=== PATIENT | male | born 1940 | race Caucasian/White ===

== ENCOUNTER 2022-07-21 11:09 | Outpatient (OUT) | payer MEDICARE, SELFPAY ==
[2022-07-21 13:08] LABS: Prostate Specific Antigen Dx 1.07 ng/mL (<=4.00)
== END 2022-07-21 11:10 ==
LOC: LAB 11:14
PROVIDERS: PCP Internal Medicine; Visit Provider Urology
DX: R97.21 Rising PSA following treatment for malignant neoplasm of prostate (principal); Z85.46 Personal history of malignant neoplasm of prostate
CPT/HCPCS: 36415; 84153

== ENCOUNTER 2022-07-21 11:16 | Outpatient (OUT) | payer MEDICARE, SELFPAY ==
[2022-07-21 11:53] LABS: Basophils Absolute Auto 0.1 10^3/uL (0.0-0.1); Basophils Percent Auto 0.5 % (0.2-2.0); Eosinophils Absolute Auto 0.4 10^3/uL (0.0-0.7); Eosinophils Percent Auto 4.2 % (0.9-7.0); Hematocrit 41.9 % (42.0-54.0); Immature Granulocytes Abs Auto 0.04 10^3/uL (0.00-0.03); Immature Granulocytes Pct Auto 0.4 % (0.0-0.5); Lymphocytes Absolute Auto 1.2 10^3/uL (1.2-3.8); Lymphocytes Percent Auto 12.4 % (20.5-60.0); Mean Corpuscular HGB Conc 33.4 g/dL (29.9-35.2); Mean Corpuscular Hemoglobin 29.4 pg (25.9-34.0); Mean Platelet Volume 11.4 fL (9.5-13.5); Monocytes Percent Auto 10.3 % (1.7-12.0); Neutrophils Absolute Auto 6.7 10^3/uL (1.4-6.5); Neutrophils Percent Auto 72.2 % (43.0-75.0); Platelet Count 202 10^3/uL (150-450); Red Blood Count 4.76 10^6/uL (4.70-6.10); Red Cell Distribution Width 13.4 % (11.0-15.0); White Blood Count 9.3 10^3/uL (4.0-11.0)
[2022-07-21 12:30] LABS: Anion Gap 12.6; BUN Creatinine Ratio 26.8; Calcium 9.2 mg/dL (8.5-10.1); Carbon Dioxide 25.7 mmol/L (21.0-32.0); Chloride 105 mmol/L (98-107); Estimated GFR (African America >60 (>=60); Estimated GFR (Non-African Ame >60 (>=60); Glucose 114 mg/dL (74-106); Potassium 4.3 mmol/L (3.5-5.1); Sodium 139 mmol/L (136-145)
== END 2022-07-21 11:17 ==
LOC: LAB 11:17
PROVIDERS: PCP Internal Medicine; Visit Provider Internal Medicine
DX: R97.21 Rising PSA following treatment for malignant neoplasm of prostate (principal); Z85.46 Personal history of malignant neoplasm of prostate; I10 Essential (primary) hypertension; Z79.899 Other long term (current) drug therapy
CPT/HCPCS: 36415; 80048; 84153; 85025

== ENCOUNTER 2022-09-27 14:00 | Outpatient (OUT) | payer MEDICARE, SELFPAY ==
[2022-09-27 14:34] LABS: Anion Gap 13.2; BUN Creatinine Ratio 21.8; Calcium 8.9 mg/dL (8.5-10.1); Carbon Dioxide 24.5 mmol/L (21.0-32.0); Chloride 101 mmol/L (98-107); Estimated GFR (African America >60 (>=60); Estimated GFR (Non-African Ame >60 (>=60); Glucose 138 mg/dL (74-106); Potassium 3.7 mmol/L (3.5-5.1); Sodium 135 mmol/L (136-145)
== END 2022-09-27 14:01 | disposition home or self-care (01) ==
LOC: LAB 14:01
PROVIDERS: PCP Internal Medicine; Visit Provider Urology
DX: M19.90 Unspecified osteoarthritis, unspecified site (principal)
CPT/HCPCS: 36415; 80048

== ENCOUNTER 2022-10-19 14:17 | Outpatient (OUT) | payer MEDICARE, SELFPAY ==
[2022-10-19 15:50] LABS: Alanine Aminotransferase 17 U/L (16-63); Albumin Globulin Ratio 0.8; Albumin Level 3.6 g/dL (3.4-5.0); Alkaline Phosphatase 98 U/L (46-116); Aspartate Amino Transferase 14 U/L (15-37); Bilirubin Direct 0.1 mg/dL (0.0-0.2); Bilirubin Total 0.6 mg/dL (0.2-1.0); Globulin 4.3 g/dL; Total Protein 7.9 g/dL (6.4-8.2)
== END 2022-10-19 14:18 | disposition home or self-care (01) ==
LOC: LAB 14:19
PROVIDERS: PCP Internal Medicine; Visit Provider Urology
DX: N40.1 Benign prostatic hyperplasia with lower urinary tract symptoms (principal); R39.14 Feeling of incomplete bladder emptying; R39.15 Urgency of urination
CPT/HCPCS: 36415; 80076

== ENCOUNTER 2023-01-12 14:10 | Outpatient (OUT) | payer MEDICARE, SELFPAY ==
[2023-01-12 15:20] LABS: Prostate Specific Antigen Dx <0.13 ng/mL (<=4.00)
== END 2023-01-12 14:11 | disposition home or self-care (01) ==
PROVIDERS: PCP Internal Medicine; Visit Provider Urology
DX: R97.21 Rising PSA following treatment for malignant neoplasm of prostate (principal)
CPT/HCPCS: 36415; 84153

== ENCOUNTER 2023-05-25 14:54 | Outpatient (OUT) | payer MEDICARE, SELFPAY ==
--- NOTE | 2023-05-25 | XR_ITS ---
The [address] [address] Patient Name: PARK GUIDRY MRN: [id number] date: 1940 Sex: M Assigned Patient Location: Current Patient Location: Accession/Order Number: [id number] Exam Date: 05/25/2023 14:55 Report Date: 05/26/2023 08:27 At the request of: JAS LEACH Procedure: XR ankle RT min 3V PROCEDURE: XR ankle RT min 3V HISTORY: RIGHT ANKLE PAIN COMPARISON: None. FINDINGS: BONES:Several nondisplaced fracture lines extending through the calcaneus. Complete loss of the ankle joint space with [id number] articulation, subchondral sclerosis, and bony erosion/remodeling of the talar dome. SOFT TISSUES:Soft tissue swelling surrounding the ankle. EFFUSION:None visible. OTHER: Negative. XR/XR ankle RT min 3V IMPRESSION: 1. Nondisplaced comminuted fracture of the right calcaneus. 2. 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 Electronically authenticated by: DANDY SANCHEZ Date: 05/26/2023 08:27
== END 2023-05-25 14:55 | disposition home or self-care (01) ==
LOC: EC 14:54
PROVIDERS: PCP Internal Medicine; Visit Provider Podiatrist Foot & Ankle Surgery
DX: M25.571 Pain in right ankle and joints of right foot (principal); S92.001A Unspecified fracture of right calcaneus, initial encounter for closed fracture
CPT/HCPCS: 73610

== ENCOUNTER 2023-08-12 09:07 | Outpatient (OUT) | payer MEDICARE, SELFPAY ==
--- OUTSIDE RECORDS SUMMARY | 2023-08-12 09:13 | XMS_ITS | CCD ---
Author Organization [facility] CliniSyct Care Team Providers Care Dental Chair Assembler Name Role Phone ENGELER, G KEYSHAWN Unavailable Unavailable LUIS GARCIA Unavailable Unavailable ENGELER, G KEYSHAWN Unavailable Unavailable ENGELER, G KEYSHAWN Unavailable Unavailable ENGELER, G KEYSHAWN Unavailable Unavailable ENGELER, G KEYSHAWN Unavailable Unavailable ENGELER, G KEYSHAWN Unavailable Unavailable ENGELER, G KEYSHAWN Unavailable Unavailable ENGELER, G KEYSHAWN Unavailable Unavailable ENGELER, G KEYSHAWN Unavailable Unavailable BOB LIU Unavailable Unavailable ENGELER, G KEYSHAWN Unavailable Unavailable ENGELER, G KEYSHAWN Unavailable Unavailable ENGELER, G KEYSHAWN Unavailable Unavailable ENGELER, G KEYSHAWN Unavailable Unavailable ENGELER, G KEYSHAWN Unavailable Unavailable ENGELER, G KEYSHAWN Unavailable Unavailable ENGELER, G KEYSHAWN Unavailable Unavailable ENGELER, G KEYSHAWN Unavailable Unavailable ENGELER, G KEYSHAWN Unavailable Unavailable ENGELER, G KEYSHAWN Unavailable Unavailable ENGELER, G KEYSHAWN Unavailable Unavailable ENGELER, G KEYSHAWN Unavailable Unavailable ENGELER, G KEYSHAWN Unavailable Unavailable CHINO MCGINNIS (REHAB AIDE) Unavailable Unavailabl e ENGELER, G KEYSHAWN Unavailable Unavailable ENGELER, G KEYSHAWN Unavailable Unavailable ENGELER, G KEYSHAWN Unavailable Unavailable CHINO MCGINNIS (REHAB AIDE) Unavailable Unavailabl e ENGELER, G KEYSHAWN Unavailable Unavailable SHAUN, DR BETTS Primary Care Unavailable BALL, DR BETTS Consulting Unavailable BALL, DR BETTS Attending Unavailable BALL, DR BETTS Admitting Unavailable Ziebfrancheska, DR Chung Consulting Unavailable JOSE, DR SMITH Admitting Unavailable JOSE, DR SMITH Consulting Unavailable JOSE, DR SMITH Attending Unavailable BALL, DR BETTS Primary Care Unavailable BALL, DR BETTS Consulting Unavailable BALL, DR BETST Attending Unavailable BALL, DR BETTS Admitting Unavailable BALL, DR BETTS Primary Care Unavailable Zieber, DR Chung Consulting Unavailable JOSE, DR SMITH Admitting Unavailable JOSE, DR SMITH Consulting Unavailable GARCIA, DR SMITH Attending Unavailable BALL, DR BETTS Primary Care Unavailable BALL, DR BETTS Primary Care Unavailable BALL, DR BETTS Consulting Unavailable BALL, DR BETTS Attending Unavailable BALL, DR BETTS Admitting Unavailable Ball, Alpesh Unavailable Shaun, DO Betts Primary Care Provider MD Marc Mckinney Admit Provider MD Marc Mckinney Attending Provider [phone] LAQUITA Joshi Other Provider Unavailable LAQUITA Samuels Other Provider Unavailable LAQUITA Gonzalez Other Provider Unavailable LAQUITA Dawkins Other Provider Unavailable LAQUITA Rendon Other Provider Unavailable LAQUITA Leyva Other Provider Unavailable MD Yadiel Yanez Other Provider SONAM Gan Other Provider DO Jacquie Cox Other Provider [phone] MD Timi Mercado Other Provider DO Sherwin Cavanaugh Other Provider MD Daniel Carnes Other Provider [phone] MD Flower Hendrickson Other Provider SONAM Bui Other Provider [phone] MD Rosamaria Gregory Other Provider MD Ga Barnett Other Provider MD Mario Merino Other Provider MD Kaylie Brower Other Provider DO Dm Seo Other Provider MD Lenin Napier Other Provider MD Julian Maurice Other Provider KARYNA Liao Other Provider [phone] MD Yordan Bowen Other Provider MD Juan Espinoza Other Provider MD Joss Mcihelle Other Provider MD Nathaniel Luna Other Provider DO Acacia Palacio Other Provider DO Hayder Suazo Other Provider DO Shorty Espino Other Provider [phone] SONAM Yin Other Provider DO Fausto Wyatt Other Provider MD Yuko Tavera Other Provider SONAM Padilla Other Provider SONAM Brambila Other Provider [phone] MD Katina Grimm Other Provider MD Anatoly Ortiz Other Provider SONAM Hope Other Provider [phone] DO Vlad Smalls Other Provider LAQUITA Flood Other Provider Unavailable Jackson Ballard Attending Unavailable Alpesh Dunn Primary Care Unavailable Marc Mckinney Admitting Unavaila Naheed Milton Consulting Unavailable Mariza Samuels Consulting Unavailable Quyen Gonzalez Consulting Unavailable Denscayla, Elizabeth Consulting Unavailable Justice Bailey Consulting Unavailable Swathi Leyva Consulting Unavailable MassYadiel bañuelos Consulting Unavailable Dials, Yi M Consulting Unavailable Brooke, Ronobir Consulting Unavailable Jess, Timi Consulting Unavailable Sherwin Cavanaugh Consulting Unavailabl Daniel River Consulting Unavailable Flower Hendrickson Consulting Unavailable Crista Bui Consulting Unavailabl e Wastyler, Rosamaria Consulting Unavailable Ga Barnett Consulting Unavailable Mario Merino Consulting Unavailable Kaylie Brower Consulting Unavailable Dm Seo Consulting Unavailable Lenin Napier Consulting Unavailable Julian Maurice Consulting Unavailable Mia Liao Consulting Unavailable Yordan Bowen Consulting Unavailab Juan [place] Consulting Unavailable Joss Michelle Consulting Unavailable Jeremy, Nathaniel Consulting Unavailable Acacia Palacio Consulting Unavailable Hayder Suazo Consulting Unavailable MiniShorty barry Consulting Unavailable ObMolly napier Consulting Unavailable Fausto Wyatt Consulting Unavailable DaromarYuko Consulting Unavailable Patti Padilla Consulting Unavailable Esther Brambila Consulting Unavailable Katina Grimm Unavailable Anatoly Ortiz Consulting Unavailable Taryn Hope Consulting Unavailable Vlad Smalls Consulting Unavailable Tonya Flood Consulting Unavailable SANCHEZ, FLORIAN A Referring Unavailable SANCHEZ, FLORIAN A Referring Unavailable SANCHEZ, FLORIAN A Referring Unavailable FADY, MACK BREE Consulting Unavailable PAMELA TOURE Admitting Unavailable PAMELA TOURE Attending Unavailable PAMELA TOURE Consulting Unavailable DENZEL GOMEZ Consulting Unavailable Luis GARCIA Attending Unavailable STELLA, MIA LINN Attending Unavaila lang DOUGLAS, MIA LINN Referring Unavaila Juan Carlos Franco Attending Unavailable Yael Agrawal Attending Unavailable Luis GARCIA Attending Unavailable Luis GARCIA Attending Unavailable Luis GARCIA Attending Unavailable Medications Current Medications Medication Drug Class(es) Dates Sig (Normalized) Sig (Original) acetaminophen 500 mg oral tablet (4 sources) Start: 02-02-2023 take 500 mg by mouth every four hours Acetaminophen Active 500 MG PO Q4H 0 February 02, 2023 12:00am take 1 capsule by mo ut every four hours as needed for pain Acetaminophen 500 MG 1 capsule as needed Orally every 4 hours for pain Active ALPRAZolam 0.25 mg oral tablet (11 sources) Benzodiazepine Start: 02-18-2023 take 0.5 tablet by mouth once daily at mealtime, then take 1 tablet by mouth once daily at bedtime ALPRAZolam 0.25 MG TAKE 1/2 TABLET BY MOUTH EVERY EVENING WITH MEAL AND TAKE ONE TABLET BY MOUTH EVERY NIGHT AT BEDTIME for 90 Feb, Active Start: 07-27-2022 take 0.5 tablet by m outh once daily at mealtime, then take 1 tablet by mouth once daily at bedtime ALPRAZolam 0.25 MG TAKE 1/2 TABLET BY MOUTH EVERY EVENING WITH MEAL AND TAKE ONE TABLET BY MOUTH EVERY NIGHT AT BEDTIME Jul, Active Start: 10-08-2016 End: 01-19-2023 take 0.25 mg by mouth once daily Alprazolam Discontinu ed 0.25 MG PO Daily October 07, 2016 11:00pm January 19, 2023 5:00pm amLODIPine 5 mg oral tablet (12 sources) Dihydropyridine Calcium Channel Aryan Start: 01-19-2023 End: 02-02-2023 take 5 mg by mouth once daily Amlodipine Active 5 MG PO Daily February 02, 2023 8:10am aspirin 81 mg delayed release oral tablet (5 sources) Platelet Aggregation Inhibitor, Nonsteroidal Anti-inflammatory Drug Start: 10-08-2016 End: 02-02-2023 Aspirin (Madi Low Dose Aspirin) 81 mg Tablet,Delayed Release (Dr/Ec) Active 81 MG PO Twice daily February 02, 2023 8:10am take 1 tablet by tyron th every twenty-four hours Aspirin 81 MG 1 tablet Orally Once a day Active diclofenac sodium 0.01 mg/mg topical gel (4 sources) Nonsteroidal Anti-inflammatory Drug Start: 02-02-2023 apply 2 g topically three times daily Diclofenac Sodium Active 2 GM TOPICAL Three times daily 03 08February 02, 2023 12:00am Diclofenac Sodiu m 1 % 2 g topical Externally TID Active enzalutamide 40 mg oral capsule (9 sources) Androgen Receptor Inhibitor Start: 01-19-2023 take 1 capsule by mouth once daily Enzalutamide (Xtandi) 40 mg Capsule Active 160 MG PO Daily with supper January 19, 2023 12:00am take 1 tablet by mouth every six hours Xtandi 40 MG 1 tablet Orally 4 times a day Active ergocalciferol 1.25 mg oral capsule (5 sources) Provitamin D2 Compound Start: 01-19-2023 End: 02-02-2023 take 1250 ug by mouth every week Ergocalciferol (Vitamin D2) Active 1250 MCG PO every week 07 06February 02, 2023 8:10am ferrous sulfate 324 mg delayed release oral tablet (4 sources) Start: 02-02-2023 take 324 mg by mouth once daily Ferrous Sulfate Active 324 MG PO Daily February 02, 2023 12:00am take 1 tablet by mouth three vivienne es weekly Ferrous Sulfate 325 (65 Fe) MG 1 tablet Orally Three times a Week Active lidocaine 0.04 mg/mg medicated patch (5 sources) Antiarrhythmic, Amide Local Anesthetic Start: 01-19-2023 End: 02-02-2023 apply 1 dose topically once daily Lidocaine Active 1 PATCH TOPICAL Daily February 02, 2023 8:10am apply 1 dose transde rmal route once daily as needed Lidocaine 4 % 1 patch as needed Externally Once a day Active melatonin 5 mg oral tablet (4 sources) Start: 02-02-2023 take 5 mg by mouth once daily at bedtime Melatonin Active 5 MG PO Daily at bedtime February 02, 2023 12:00am metFORMIN hydrochloride 850 mg oral tablet (2 sources) Biguanide Start: 02-02-2023 take 850 mg by mouth once daily Metformin Active 850 MG PO Daily with supper February 02, 2023 12:00am ondansetron 4 mg disintegrating oral tablet (2 sources) Serotonin-3 Receptor Antagonist Start: 02-02-2023 take 4 mg by mouth every eight hours Ondansetron Active 4 MG PO Every 8 hours 90 February 02, 2023 12:00am take 1 tablet by tyron every twenty-four hours Ondansetron 4 MG 1 tablet on the tongue and allow to dissolve Orally Once a day Active oxyCODONE hydrochloride 5 mg oral tablet (2 sources) Opioid Agonist Start: 02-02-2023 take 5 mg by mouth every eight hours Oxycodone Active 5 MG PO Every 8 hours 15 February 02, 2023 take 1 tablet by mouth every eig ht hours oxyCODONE HCl 5 MG 1 tablet as needed Orally every 8 hours Active tamsulosin hydrochloride 0.4 mg oral capsule (12 sources) alpha-Adrenergic Aryan Start: 01-19-2023 End: 02-02-2023 take 1 capsule by mouth twice daily Tamsulosin (Flomax) 0.4 mg Capsule Active 0.4 MG PO Twice daily 60 February 02, 2023 8:10am take 1 capsule by mo [facility] every twenty-four hours Tamsulosin HCl 0.4 MG 1 capsule Orally Once a day Active 24 hr tolterodine tartrate 4 mg extended release oral capsule (10 sources) Cholinergic Muscarinic Antagonist Start: 01-19-2023 End: 02-02-2023 take 4 mg by mouth once daily Tolterodine Active 4 MG PO Daily February 02, 2023 8:10am Completed/Discontinued Medications Medication Drug Class(es) Dates Sig (Normalized) Sig (Original) doxazosin 2 mg oral tablet (1 source) alpha-Adrenergic Aryan Start: 10-08-2016 End: 01-19-2023 take 2 mg by mouth once daily Doxazosin Discontinued 2 MG PO daily October 07, 2016 11:00pm January 19, 2023 5:01pm 0.3 ml enoxaparin sodium 100 mg/ml prefilled syringe (2 sources) Low Molecular Weight Heparin Start: 01-19-2023 End: 02-02-2023 inject 30 mg by subcutaneous injection every twelve hours Enoxaparin Discontinued 30 MG SUBCUT Q12H January 19, 2023 12:00am February 02, 2023 8:11am meloxicam 15 mg oral tablet (11 sources) Nonsteroidal Anti-inflammatory Drug Start: 10-08-2016 End: 01-19-2023 take 15 mg by mouth once daily Meloxicam Discontinued 15 MG PO daily October 07, 2016 11:00pm January 19, 2023 5:00pm Multivitamin preparation (1 source) Start: 10-08-2016 End: 01-19-2023 take 1 tablet by mouth once daily Multivitamin Discontinued 1 TAB PO daily October 07, 2016 11:00pm January 19, 2023 5:01pm Problems Active Problems Problem Classification Problem Date Documented Da te Episodic/Chronic Administrative/social admission (3 sources) Other reduced mobility; Translations: [Impaired mobility and activities of daily living] Onset: 01-19-2023 01-20-2023 Episodic Anxiety disorders (14 sources) Generalized anxiety disorder; Translations: [Generalized anxiety disorder] Chronic Cancer of prostate (16 sources) Malignant neoplasm of prostate; Translations: [Carcinoma of prostate] Onset: 11-11-2016 Chronic Cancer of prostate (1 source) Personal history of malignant neoplasm of prostate; Translations: [PERSONAL HX MALIG NEOPLASM PROSTATE] Onset: 01-24-2022 Episodic Deficiency and other anemia (1 source) Anemia; Translations: [Anemia, unspecified] 01-28-2023 Episodic Deficiency and other anemia (2 sources) Anemia, unspecified; Translations: [Anemia, unspecified] Onset: 01-19-2023 02-02-2023 Episodic Diabetes mellitus without complication (3 sources) Diabetes mellitus; Translations: [Type 2 diabetes mellitus without complications] Onset: 01-19-2023 01-28-2023 Chronic Esophageal disorders (8 sources) Gastro-esophageal reflux disease with esophagitis; Translations: [Gastroesophageal reflux disease with esophagitis without hemorrhage] Chronic Essential hypertension (20 sources) Essential hypertension; Translations: [Essential (primary) hypertension] Onset: 01-19-2023 Chronic Genitourinary symptoms and ill-defined conditions (14 sources) Urgency of urination; Translations: [Delay when starting to pass urine] Onset: 01-24-2022 Episodic Hyperplasia of prostate (14 sources) Benign prostatic hyperplasia with lower urinary tract symptoms; Translations: [Benign prostatic hyperplasia] Onset: 01-24-2022 Chronic Hypertension with complications and secondary hypertension (1 source) Hypertensive heart disease with heart failure; Translations: [HTN HEART DISEASE W/HEART FAIL] Onset: 07-23-2021 Chronic Malaise and fatigue (1 source) Other fatigue Episodic Open wounds of head; neck; and trunk (1 source) Laceration without foreign body of scalp, subsequent encounter Episodic Osteoarthritis (10 sources) Arthritis; Translations: [Unspecified osteoarthritis, unspecified site] Chronic Other acquired deformities (10 sources) Acquired unequal leg length; Translations: [Unequal limb length (acquired), unspecified site] Episodic Other aftercare (2 sources) Other senior living (current) drug therapy; Translations: [OTH ARM REST BUILDER CURRENT DRUG THERAPY] Onset: 07-23-2021 Episodic Other and unspecified benign neoplasm (10 sources) Tubular adenoma of colon; Translations: [Benign neoplasm of colon, unspecified] Episodic Other bone disease and musculoskeletal deformities (10 sources) Idiopathic aseptic necrosis of right ankle; 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 Other circulatory disease (1 source) Other specified symptoms and signs involving the circulatory and respiratory systems Episodic Other connective tissue disease (10 sources) Pain in limb; Translations: [Pain in right lower leg] Episodic Other fractures (1 source) Multiple fractures of ribs, right side, subsequent encounter for fracture with routine healing Episodic Other gastrointestinal disorders (10 sources) Radiation enterocolitis; 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] Episodic Other lower respiratory disease (1 source) Other forms of dyspnea Episodic Other nervous system disorders (1 source) Dysarthria and anarthria Episodic Other nervous system disorders (1 source) Hip pain; Translations: [Other acute postprocedural pain] 01-20-2023 Episodic Other nervous system disorders (2 sources) Other acute postprocedural pain; Translations: [Pain in joint, pelvic region and thigh] Onset: 01-19-2023 02-02-2023 Episodic Other non-traumatic joint disorders (1 source) Pain in right hip; Translations: [Pain in right hip] Onset: 01-19-2023 Episodic Other nutritional; endocrine; and metabolic disorders (15 sources) Body mass index 30+ - obesity; Translations: [Body mass index (BMI) 32.0-32.9, adult] Chronic Other nutritional; endocrine; and metabolic disorders (10 sources) Obesity; Translations: [Other obesity due to excess calories] Chronic Other nutritional; endocrine; and metabolic disorders (2 sources) Other obesity due to excess calories Chronic Other nutritional; endocrine; and metabolic disorders (2 sources) Body mass index (BMI) 32.0-32.9, adult Chronic Other nutritional; endocrine; and metabolic disorders (1 source) Body mass index (BMI) 31.0-31.9, adult Chronic Other screening for suspected conditions (not mental disorders or infectious disease) (1 source) Imaging result abnormal; Translations: [Abnormal findings on diagnostic imaging of other specified body structures] 10-08-2016 Chronic Other screening for suspected conditions (not mental disorders or infectious disease) (4 sources) Rising PSA following treatment for malignant neoplasm of prostate; Translations: [RISING PSA FLW TX MALG MARY PROSTATE] Onset: 01-20-2022 Episodic Other skin disorders (1 source) Localized swelling, mass and lump, neck Episodic Residual codes; unclassified (1 source) Other specified health status; Translations: [Other specified health status] Onset: 01-19-2023 Episodic Skin and subcutaneous tissue infections (10 sources) Cellulitis of right lower limb; Translations: [Cellulitis of right lower limb] Episodic Spondylosis; intervertebral disc disorders; other back problems (14 sources) Lumbar spondylosis; Translations: [Spondylosis without myelopathy or radiculopathy, lumbar region] Chronic Superficial injury; contusion (4 sources) Contusion of nose, subsequent encounter; Translations: [Contusion of rib] Onset: 01-19-2023 Episodic Unclassified (1 source) Displaced transverse fracture of shaft of right femur, initial encounter for closed fracture; Translations: [Displaced transverse fracture of shaft of right femur, initial encounter for closed fracture] Onset: 01-19-2023 Past or Other Problems Problem Classification Problem Date Documented Da te Episodic/Chronic Esophageal disorders (4 sources) Esophageal disorders; Translations: [Gastroesophageal reflux disease with esophagitis without hemorrhage] Fracture of lower limb (5 sources) Fracture of femur; Translations: [Unspecified fracture of right femur, initial encounter for closed fracture] Onset: 01-19-2023 01-20-2023 Episodic Other connective tissue disease (4 sources) Pain in right lower leg; Translations: [PAIN IN RIGHT LOWER LEG] Onset: 08-11-2021 Episodic Other connective tissue disease (1 source) Other specified soft tissue disorders; Translations: [OTHER SPEC SOFT TISSUE DISORDERS] Onset: 08-24-2021 Episodic Other lower respiratory disease (4 sources) Chronic cough; Translations: [CHRONIC COUGH] Onset: 05-20-2021 Episodic Results Test Name Value Interpretation Reference Range Facility PT - Otheron 08-03-2023 PT - Other Spoke with pt by kojo maynard. Pt reports seeing his surgeon yesterday and having a 5 screw removed from his right hip while in the office. Pt states this had loosened at some point and this was the cause of his increased pain. Pt requests to return to PT on 08/09/23 and would like to keep activity light. Normal [facility] PT - Otheron 07-29-2023 PT - Other Pt called to inform PT that he is scheduled to see Dr Douglas next Tuesday for a consult for his continued right hip pain. Normal [facility] Nonvisit Note - PTon 024 Nonvisit Note - PT Pt called and left voicemail to cancel PT for today and his upcoming visits. PT phoned pt back and discussed pt's pain. Pt reports high pain levels 9.5/10 and states he is unable to do much due to his hip pain. Pt wants to get into see Dr. Cosme for an x-ray since his surgical ortho appointment isn't for a few more weeks. Pt states he is using Tylenol and heat. States he is not getting around very well. Visit cancelled this date and for the next 2 weeks. Pt to contact PT after appointment with ortho. Pt encouraged to trial ice to hip if pain levels are above 8/10 and monitor if this helps his pain reports. Normal [facility] PT - Assessmentson 4 PT - Assessments [id number]#1.[facility] PT - Assessmentson 4 PT - Assessments [id number]#1.[facility] XR FEMUR RIGHT (MIN 2 VIEWS) on 06-08-2023 XR FEMUR RIGHT (MIN 2 VIEWS) Interpreted by: Mia Douglas, Preliminary result [facility] PT - [place] 06-03-2023 PT - Orders [id number]#1.[facility] Consent for Treatmenton 05-09 Consent for Treatment [id number]#1.[facility] PT - Assessmentson 4 PT - Assessments [id number]#1.[facility] PT - Consentson 05-31-2023 PT - Consents [id number]#1.[facility] PT - Home Exercise Programon 05-31-2023 PT - Home Exercise Program [id number]#1.[facility] PT - [place] 05-24-2023 PT - Orders [id number]#1.[facility] PT - Otheron 05-24-2023 PT - Other [id number]#1.[facility] PT - [place] 05-23-2023 PT - Orders [id number]#1.[facility] Ambulatory Visit Summaryon 0 03-21-2023 Ambulatory Visit Summary [place] :1940 Visit Date:03/21/2023 Ambulatory Visit Instructions Your Diagnosis Feeling of incomplete bladder emptying Your Care Team Attending Physician - JOSE LYNN, Luis No Primary Care Physician - ALPESH DUNN DO This Is Your Medications List alprazolam (alprazolam 0.25 mg Tab) amlodipine enzalutamide (enzalutamide 40 mg oral capsule) meloxicam (Mobic) tamsulosin (Flomax 0.4 mg Cap) tolterodine (tolterodine 2 mg Cap-ER) tolterodine (tolterodine 4 mg Cap-ER) Procedures Performed Radiofrequency ablation of medial branch of lumbar nerve using fluoroscopic guidance (06/22/2022), Injection of facet joint using fluoroscopic guidance (05/31/2022), Injection of facet joint using fluoroscopic guidance (05/03/2022), left total hip arthroplasty (01/30/2018), Cystoscopy (12/13/2017), lumbar medial branch block (11/21/2017), Facet Medial Branch Block (05/30/2017), Brachytherapy (12/23/2016), Transrectal biopsy of prostate using ultrasound (US) guidance (08/24/2016), left total knee arthroplasty (03/05/2013), Cleft palate repair, Knee arthroplasty, left total knee, OPEN REDUCCTION RIGHT FEMUR, rt total knee. What to do next Scheduled Follow-Up Appointments Tuesday 9:30 AM EDT With: Luis GARCIA MD Where: [facility] Ambulatory Visit Summaryon 0 02-21-2023 Ambulatory Visit Summary [place] :1940 Visit Date:02/21/2023 Ambulatory Visit Instructions Your Diagnosis Rising PSA following treatment for malignant neoplasm of prostate BPH with urinary obstruction Urge incontinence Tests Performed Urnls Dip Stick Auto w/o Microscopy POC [id number] Your Care Team Attending Physician - Luis GARCIA MD Primary Care Physician - ALPESH DUNN DO This Is Your Medications List tolterodine (tolterodine 2 mg Cap-ER) tolterodine (tolterodine 4 mg Cap-ER) Contact prescribing physician if questions or concerns alprazolam (alprazolam 0.25 mg Tab) amlodipine enzalutamide (enzalutamide 40 mg oral capsule) meloxicam (Mobic) tamsulosin (Flomax 0.4 mg Cap) Procedures Performed Radiofrequency ablation of medial branch of lumbar nerve using fluoroscopic guidance (06/22/2022), Injection of facet joint using fluoroscopic guidance (05/31/2022), Injection of facet joint using fluoroscopic guidance (05/03/2022), left total hip arthroplasty (01/30/2018), Cystoscopy (12/13/2017), lumbar medial branch block (11/21/2017), Facet Medial Branch Block (05/30/2017), Brachytherapy (12/23/2016), Transrectal biopsy of prostate using ultrasound (US) guidance (08/24/2016), left total knee arthroplasty (03/05/2013), Cleft palate repair, Knee arthroplasty, left total knee, OPEN REDUCCTION RIGHT FEMUR, rt total knee. Discharge Vitals Heart Rate (Peripheral) 68 Respiratory Rate 16 Blood Pressure 132/81 Height 170 cm Height 67 in Weight 90 kg Weight 198 lb BMI 31.14 What to do next Scheduled Follow-Up Appointments Tuesday 9:30 AM EDT With: JOSE LYNN, Luis No Where: [facility] Patient Educationon 02-21-19 Patient Education Oncology Prostate Cancer Screening Prostate cancer screening is testing that is done to check for the presence of prostate cancer in men. The prostate gland is a walnut-sized gland that is located below the bladder and in front of the rectum in males. The function of the prostate is to add fluid to semen during ejaculation. Prostate cancer is one of the most common types of cancer in men. Who should have prostate cancer screening? Screening recommendations vary based on age and other risk factors, as well as between the professional organizations who make the recommendations. In general, screening is recommended if: ? You are age 50 to 70 and have an average risk for prostate cancer. You should talk with your health care provider about your need for screening and how often screening should be done. Because most prostate cancers are slow growing and will not cause , screening in this age group is generally reserved for men who have a 10- to 15-year life expectancy. ? You are younger than age 50, and you have these risk factors: ? Having a father, brother, or uncle who has been diagnosed with prostate cancer. The risk is higher if your family member's cancer occurred at an early age or if you have multiple family members with prostate cancer at an early age. ? Being a male who is Black or is of [place] or sub-Saharan descent. In general, screening is not recommended if: ? You are younger than age 40. ? You are between the ages of 40 and 49 and you have no risk factors. ? You are 70 years of age or older. At this age, the risks that screening can cause are greater than the benefits that it may provide. If you are at high risk for prostate cancer, your health care provider may recommend that you have screenings more often or that you start screening at a younger age. How is screening for prostate cancer done? The recommended prostate cancer screening test is a blood test called the prostate-specific antigen (PSA) test. PSA is a protein that is made in the prostate. As you age, your prostate naturally produces more PSA. Abnormally high PSA levels may be caused by: ? Prostate cancer. ? An enlarged prostate that is not caused by cancer (benign prostatic hyperplasia, or BPH). This condition is very common in older men. ? A prostate gland infection (prostatitis) or urinary tract infection. ? Certain medicines such as male hormones (like testosterone) or other medicines that raise testosterone levels. A rectal exam may be done as part of prostate cancer screening to help provide information about the size of your prostate gland. When a rectal exam is performed, it should be done after the PSA level is drawn to avoid any effect on the results. Depending on the PSA results, you may need more tests, such as: ? A physical exam to check the size of your prostate gland, if not done as part of screening. ? Blood and imaging tests. ? A procedure to remove tissue samples from your prostate gland for testing (biopsy). This is the only way to know for certain if you have prostate cancer. What are the benefits of prostate cancer screening? ? Screening can help to identify cancer at an early stage, before symptoms start and when the cancer can be treated more easily. ? There is a small chance that screening may lower your risk of dying from prostate cancer. The chance is small because prostate cancer is a slow-growing cancer, and most men with prostate cancer from a different cause. What are the risks of prostate cancer screening? The main risk of prostate cancer screening is diagnosing and treating prostate cancer that would never have caused any symptoms or problems. This is called overdiagnosisand overtreatment. PSA screening cannot tell you if your PSA is high due to cancer or a different cause. A prostate biopsy is the only procedure to diagnose prostate cancer. Even the results of a biopsy may not tell you if your cancer needs to be treated. Slow-growing prostate cancer may not need any treatment other than monitoring, so diagnosing and treating it may cause unnecessary stress or other side effects. Questions to ask your health care provider ? When should I start prostate cancer screening? ? What is my risk for prostate cancer? ? How often do I need screening? ? What type of screening tests do I need? ? How do I get my test results? ? What do my results mean? ? Do I need treatment? Where to find more information ? The [place] Cancer Society: www.cancer.org ? [employer] U[employer] Association: www.auanet.org Contact a health care provider if: ? You have difficulty urinating. ? You have pain when you urinate or ejaculate. ? You have blood in your urine or semen. ? You have pain in your back or in the area of your prostate. Summary ? Prostate cancer is a common type of cancer in men. The prostate gland is located below the bladder and in front of the rectum. This gland adds flu (more content not included)... Normal [facility] Urology Office/Clinic Noteon 02-21-2023 Urology Office/Clinic Note Chief Complaint rising PSA after treatment for malignant neoplasm of the prostate HPI Staff 6 month f/u with PSA and Lupron injection. Previous dx of rising PSA following treatment for malignant neoplasm of prostate, BPH with urinary obstruction and urge incontinence. Continues use of Tamsulosin 0.4mg BID and Tolterodine 4mg QD. Current PSA 01/12/23 is <0.13 and previous 07/21/22 was 1.07. Dysuria: no Incomplete bladder emptying: no Hematuria: no Frequency: every hour ongoing for a long time Urgency: yes ongoing for a long time Nocturia: up about every hour and a half Stream: weak Leaking: yes Post void dripping: yes Wearing pads/ Depends: wears depends and changes 1x daily Urge incontinence: sometimes Stress incontinence: no Incontinence without Sensory Awareness: no Abdominal pain: no Flank pain: no Sexual complaints: no History of Present Illness Tests reviewed: reviewed UA, PSA I have reviewed the previous health record information and history for this patient from Dr. Garcia. I have reviewed and verified the staff HPI to be accurate for this encounter. Review of Systems PHQ Score Initial Depression Screen Score: 0 SCORE ROS - Provider Constitutional: denies weight loss, denies hot flashes. Eyes: denies eye problems. Gastrointestinal: denies nausea, denies vomiting. Cardiovascular: denies chest pain or angina. Integumentary: no dryness Musculoskeletal: denies musculoskeletal symptoms. ENMT: denies otolaryngeal symptoms. Respiratory: no shortness of breath. Heme/Lymph: denies easy bleeding tendency, denies easy bruising tendency. Psychiatric: no confusion, no anxiety. Genitourinary: See HPI. Physical Exam Vitals & Measurements HR: 68(Peripheral) RR: 16 BP: 132/81 HT: 67 in HT: 170 cm WT: 90 kg WT: 198 lb BMI: 31.14 General Appearance: alert, no distress, well nourished, well developed male. Genitourinary: normal scrotum, normal testes, normal urethra, normal epididymis, normal vas deferens/spermatic cord. Flank Pain: none. Bladder: nonpalpable. Assessment/Plan Pt is here today with his son. Pt recently went through rehab due to falling and breaking his femur in November. 1. Rising PSA following treatment for malignant neoplasm of prostate (R97.21: Rising PSA following treatment for malignant neoplasm of prostate) PSA: 01/19/21 - 0.10 07/22/21 - 3.30 01/20/22 - 0.52 07/21/22 - 1.07 01/12/23 - <0.13 TRUS/bx 08/24/16 - Pj 7 (4+3) x 1 core 9% of core involvement. Pj 7 (3+4) x 1 core, 35% of core involvement. EBRT 2017. Brachytherapy 12/23/16. First Lupron inj 07/21/20. Most recent Lupron 07/26/22. Started Enzalutamide 160 mg (4 tabs of 40 mg) qd at prior OV. Discussed PSA level. Has decreased from prior, and is nearly undetectable. Will continue to monitor PSA. Lupron 45 mgIM injection given today with no complications. Left glute. Pt. denies side effects at this time. Taking OTC Ca and Vit D supplements. -Cont Enzalutamide -PSA and Lupron in 6 mos 2. BPH with urinary obstruction (N40.1: Benign prostatic hyperplasia with lower urinary tract symptoms) Taking Tamsulosin 0.4mg bid. States he has some post void dribbling. Reports he feels empty when his stream is strong but if his stream is unsteady, he has to wait to ensure he empties. Denies any pain/burning with urination. Denies ever seeing any visible blood. UA today negative for blood and infection. -Cont Tamsulosin wo changes 3. Urge incontinence (N39.41: Urge incontinence) Taking Tolterodine ER 4mg qd. States he has to void as soon as he has the urge otherwise he has an accident. Discussed increasing dosage and the risks/benefits. Pt states he would like to try this due to urinary sxs becoming more bothersome. -Increase Tolterodine ER from 4mg to 6mg qd. New rx sent. Pt to monitor for difficulty with emptying. Follow-up With When Contact Information JOSE LYNN, Luis No, URL [facility] [address], [place] [address] [phone] Additional Instructions: 6 mos w/ Lupron and PSA Patient Education Prostate Cancer Screening I, Sarah Beth Greene, personally scribed for Dr. Garcia on 02/21/2023 13:17:39. . Documentation recorded by the scribeSarah Beth, accurately reflects the services(s) I performed and decisions made by me. Authenticated by Dr. Garcia on 02/21/2023 13:19:38. Problem List/Past Medical History Ongoing Arthritis BPH with urinary obstruction Feeling of incomplete bladder emptying Frequency of urination Hematuria Insomnia Knee osteoarthritis Lower back pain Nocturia Personal history of prostate cancer Post-void dribbling Rising PSA following treatment for malignant neoplasm of prostate Urge incontinence Urge incontinence of urine Urgency of urination Urinary urgency Weak urine stream Historical Elevated PSA Insomnia Prostate cancer Prostate cancer Procedure/Surgi (more content not included)... Normal [facility] Comment on above: Result Comment: Elec tronically Signed By: Luis GARCIA MD\.br\Date and Time Signed: 02/21/23 13:19 EST\.br\Electronically Co-Signed By: Sarah Beth Greene\.br\Date and Time Co-Signed: 02/21/23 13:18 EST Glucose Glucometer (BldC) [M ass/Vol]Ordered By: Marc Mckinney on 02-02-2023 Glucose [Mass/Vol] 115 mg/dL [facility] Comment on above: Random Glucose Refer ence Range is dependent on time and content of last meal. Glucose of more than 200 mg/dL in a nonstressed, ambulatory subject supports the diagnosis of Diabetes Mellitus. Glucose Poct Glucometerson 1 04-05-2022 Glucose [Mass/Vol] 115 mg/dL Normal [facility] Comment on above: Result Comment: [place] [facility] Glucose Reference Range is dependent on time and content of last meal. Glucose of more than 200 mg/dL in a nonstressed, ambulatory subject supports the diagnosis of Diabetes Mellitus. PERFORMED BY: [facility] [address] [address] PATHOLOGIST ASSISTANT CENTER DIRECTOR ATUL TRACY M.D. Performed By: #### G LUKORIN #### Point of Care testing , Glucose Poct Glucometerson 1 04-04-2022 Glucose [Mass/Vol] 135 mg/dL Normal [facility] Comment on above: Result Comment: [place] [facility] Glucose Reference Range is dependent on time and content of last meal. Glucose of more than 200 mg/dL in a nonstressed, ambulatory subject supports the diagnosis of Diabetes Mellitus. PERFORMED BY: [facility] [address] [place] [address] PATHOLOGIST ASSISTANT CENTER DIRECTOR ATUL TRACY M.D. Performed By: #### G KSENIA #### Point of Care testing , Glucose Poct Glucometerson 1 04-03-2022 Glucose [Mass/Vol] 109 mg/dL Normal [facility] Comment on above: Result Comment: [place] Glucose Reference Range is dependent on time and content of last meal. Glucose of more than 200 mg/dL in a nonstressed, ambulatory subject supports the diagnosis of Diabetes Mellitus. PERFORMED BY: [address] [address] PATHOLOGIST ASSISTANT CENTER DIRECTOR ATUL TRACY M.D. Performed By: #### G LULS #### Point of Care testing , Glucose Poct Glucometerson 1 04-02-2022 Glucose [Mass/Vol] 105 mg/dL Normal [facility] Comment on above: Result Comment: [facility] Glucose Reference Range is dependent on time and content of last meal. Glucose of more than 200 mg/dL in a nonstressed, ambulatory subject supports the diagnosis of Diabetes Mellitus. PERFORMED BY: [facility] [address] [place] [address] PATHOLOGIST ASSISTANT CENTER DIRECTOR ATUL TRACY M.D. Performed By: #### G LULS #### Point of Care testing , Basic Metabolic Panelon 12-2 Anion gap [Moles/Vol] 13.9 mmol/L Normal 6.0-15.0 [facility] Comment on above: Performed By: #### G LULS #### Point of Care testing , Calcium [Mass/Vol] 8.5 mg/dL Low 8.6-10.3 [facility] Comment on above: Performed By: #### G LULS #### Point of Care testing , Chloride [Moles/Vol] 105 mmol/L Normal 98-107 [facility] Comment on above: Performed By: #### G LULS #### Point of Care testing , CO2 [Moles/Vol] 23.3 mmol/L Normal 21.0-31.0 [facility] Comment on above: Performed By: #### G LULS #### Point of Care testing , Creatinine [Mass/Vol] 0.71 mg/dL Normal 0.70-1.30 [facility] Comment on above: Performed By: #### G LULS #### Point of Care testing , Creatinine Clr Calc Pharmacy 73.17 [facility] Comment on above: Result Comment: PERF ORMED BY: [facility] [place] [address] PATHOLOGIST ASSISTANT CENTER DIRECTOR ATUL TRACY M.D. Performed By: #### G LULS #### Point of Care testing , GFR/1.73 sq M.predicted MDRD (S/P/Bld) [Vol rate/Area] mL/min/{1.73_m2} Normal [facility] Comment on above: Performed By: #### G LULS #### Point of Care testing , Glucose [Mass/Vol] 102 mg/dL High 70-100 [facility] Comment on above: Result Comment: [facility] Glucose Reference Range is dependent on time and content of last meal. Glucose of more than 200 mg/dL in a nonstressed, ambulatory subject supports the diagnosis of Diabetes Mellitus. ADA recommended reference range Performed By: #### G LULS #### Point of Care testing , Potassium [Moles/Vol] 4.2 mmol/L Normal 3.5-5.1 [facility] Comment on above: Performed By: #### G LULS #### Point of Care testing , Sodium [Moles/Vol] 138 mmol/L Normal 136-145 [facility] Comment on above: Performed By: #### G LULS #### Point of Care testing , Urea nitrogen [Mass/Vol] 22 mg/dL Normal 7-25 [facility] Comment on above: Performed By: #### G LULS #### Point of Care testing , Basophils Auto (Bld) [#/Vol] Ordered By: Ashlyn Donato on 01-29-2023 Basophils (Bld) [#/Vol] 0.1 10*3/uL 0.0-0.2 [facility] Basophils/100 WBC Auto (Bld) Ordered By: Ashlyn Donato on 01-29-2023 Basophils/100 WBC (Bld) 1.2 % . [facility] Calcium [Mass/volume] in Ser um or PlasmaOrdered By: Ashlyn Donato on 01-29-2023 Calcium [Mass/Vol] 8.5 mg/dL 8.6-10.3 [facility] Carbon dioxide, total [Moles /volume] in Serum or PlasmaOrdered By: Ashlyn Donato on 01-29-2023 CO2 [Moles/Vol] 23.3 mmol/L 21.0-31.0 [facility] Chloride [Moles/volume] in S edith or PlasmaOrdered By: Ashlyn Donato on 01-29-2023 Chloride [Moles/Vol] 105 mmol/L 98-107 [facility] Complete Blood Count Auto Di ffon 01-29-2023 Basophils (Bld) [#/Vol] 0.1 10*3/uL Normal 0.0-0.2 [facility] Comment on above: Result Comment: PERF ORMED BY: [facility] [address] [place] [place] [address] PATHOLOGIST ASSISTANT CENTER DIRECTOR ATUL TRACY M.D. Performed By: #### G LULS #### Point of Care testing , Basophils/100 WBC (Bld) 1.2 % Normal . [facility] Comment on above: Performed By: #### G LULS #### Point of Care testing , Eosinophils (Bld) [#/Vol] 0.4 10*3/uL Normal 0.0-0.45 [facility] Comment on above: Performed By: #### G LULS #### Point of Care testing , Eosinophils/100 WBC (Bld) 3.8 % Normal . [facility] Comment on above: Performed By: #### G LULS #### Point of Care testing , Erythrocyte distribution width (RBC) [Ratio] 14.0 % Normal 12.0-14.8 [facility] Comment on above: Performed By: #### G LULS #### Point of Care testing , Hematocrit (Bld) [Volume fraction] 30.8 % Low 38.8-50.0 [facility] Comment on above: Performed By: #### G LULS #### Point of Care testing , Hemoglobin (Bld) [Mass/Vol] 10.2 g/dL Low 13.0-17.0 [facility] Comment on above: Performed By: #### G DICKLS #### Point of Care testing , Lymphocytes (Bld) [#/Vol] 1.0 10*3/uL Normal 1.00-4.8 [facility] Comment on above: Performed By: #### G DICKLS #### Point of Care testing , Lymphocytes/100 WBC (Bld) 9.9 % Normal . [facility] Comment on above: Performed By: #### G DICKLS #### Point of Care testing , MCH (RBC) [Entitic mass] 30.0 pg Normal 27.5-35.2 [facility] Comment on above: Performed By: #### G DICKLS #### Point of Care testing , MCV (RBC) [Entitic vol] 90.4 fL Normal 83.5-101 [facility] Comment on above: Performed By: #### Marylou JENNINGSLS #### Point of Care testing , Mean Corpuscular HGB Conc 33.2 g/dL Normal 32.5-35.6 [facility] Comment on above: Performed By: #### Marylou MCCORMACK #### Point of Care testing , Monocytes (Bld) [#/Vol] 1.1 10*3/uL High 0.0-0.8 [facility] Comment on above: Performed By: #### G DICKLS #### Point of Care testing , Monocytes/100 WBC (Bld) 10.6 % Normal . [facility] Comment on above: Performed By: #### G DICKLS #### Point of Care testing , Neutrophils (Bld) [#/Vol] 7.7 10*3/uL Normal 1.8-7.7 [facility] Comment on above: Performed By: #### G DICKLS #### Point of Care testing , Neutrophils/100 WBC (Bld) 74.5 % Normal . [facility] Comment on above: Performed By: #### G DICKLS #### Point of Care testing , NRBC% 0.1 /100{WBC} Normal 0-0.5 [facility] Comment on above: Performed By: #### G DICKLS #### Point of Care testing , Platelet mean volume (Bld) [Entitic vol] 9.0 fL Normal 6.6-10.1 [facility] Comment on above: Performed By: #### G DICKLS #### Point of Care testing , Platelets (Bld) [#/Vol] 353 10*3/uL Normal 150-450 [facility] Comment on above: Performed By: #### G DICKLS #### Point of Care testing , RBC (Bld) [#/Vol] 3.41 10*6/uL Low 3.90-5.60 [facility] Comment on above: Performed By: #### G DICKLS #### Point of Care testing , WBC (Bld) [#/Vol] 10.3 10*3/uL Normal 4.1-10.5 [facility] Comment on above: Performed By: #### G KSENIA #### Point of Care testing , Creatinine [Mass/volume] in Serum or PlasmaOrdered By: Ashlyn Donato on 01-29-2023 Creatinine [Mass/Vol] 0.71 mg/dL 0.70-1.30 [facility] Eosinophils Auto (Bld) [#/Vo l]Ordered By: Ashlyn Donato on 01-29-2023 Eosinophils (Bld) [#/Vol] 0.4 10*3/uL 0.0-0.45 [facility] Eosinophils/100 WBC Auto (Bl d)Ordered By: Ashlyn Donato on 01-29-2023 Eosinophils/100 WBC (Bld) 3.8 % . [facility] Erythrocyte distribution wid th Auto (RBC) [Ratio]Ordered By: Ashlyn Donato on 01-29-2023 Erythrocyte distribution width (RBC) [Ratio] 14.0 % 12.0-14.8 [facility] Glucose Poct Glucometerson 1 04-01-2022 Glucose [Mass/Vol] 111 mg/dL Normal [facility] Comment on above: Result Comment: [place] Glucose Reference Range is dependent on time and content of last meal. Glucose of more than 200 mg/dL in a nonstressed, ambulatory subject supports the diagnosis of Diabetes Mellitus. PERFORMED BY: [facility] [place] [address] PATHOLOGIST ASSISTANT CENTER DIRECTOR ATUL TRACY M.D. Performed By: #### G KSENIA #### Point of Care testing , Glucose [Mass/volume] in Ser um or PlasmaOrdered By: Ashlyn Donato on 01-29-2023 Glucose [Mass/Vol] 102 mg/dL 70-100 [facility] Comment on above: ADA recommended refe rence rangeRandom Glucose Reference Range is dependent on time and content of last meal. Glucose of more than 200 mg/dL in a nonstressed, ambulatory subject supports the diagnosis of Diabetes Mellitus. Hematocrit Auto (Bld) [Volum e fraction]Ordered By: Ashlyn Donato on 01-29-2023 Hematocrit (Bld) [Volume fraction] 30.8 % 38.8-50.0 [facility] Hemoglobin [Mass/volume] in BloodOrdered By: Ashlyn Donato on 01-29-2023 Hemoglobin (Bld) [Mass/Vol] 10.2 g/dL 13.0-17.0 [facility] Leukocytes [#/volume] correc portia for nucleated erythrocytes in Blood by Automated counOrdered By: Ashlyn Donato on 01-29-2023 WBC corrected for nucl RBC Auto (Bld) [#/Vol] 10.3 10*3/uL 4.1-10.5 [facility] Lymphocytes Auto (Bld) [#/Vo l]Ordered By: Ashlyn Donato on 01-29-2023 Lymphocytes (Bld) [#/Vol] 1.0 10*3/uL 1.00-4.8 [facility] Lymphocytes/100 WBC Auto (Bl d)Ordered By: Ashlyn Donato on 01-29-2023 Lymphocytes/100 WBC (Bld) 9.9 % . [facility] MCH Auto (RBC) [Entitic mass ]Ordered By: Ashlyn Donato on 01-29-2023 MCH (RBC) [Entitic mass] 30.0 pg 27.5-35.2 [facility] MCHC Auto (RBC) [Mass/Vol]Or dered By: Ashlyn Donato on 01-29-2023 MCHC (RBC) [Mass/Vol] 33.2 g/dL 32.5-35.6 [facility] MCV Auto (RBC) [Entitic vol] Ordered By: Ashlyn Donato on 01-29-2023 MCV (RBC) [Entitic vol] 90.4 fL 83.5-101 [facility] Monocytes Auto (Bld) [#/Vol] Ordered By: Ashlyn Donato on 01-29-2023 Monocytes (Bld) [#/Vol] 1.1 10*3/uL 0.0-0.8 [facility] Monocytes/100 WBC Auto (Bld) Ordered By: Ashlyn Donato on 01-29-2023 Monocytes/100 WBC (Bld) 10.6 % . [facility] Neutrophils Auto (Bld) [#/Vo l]Ordered By: Ashlyn Donato on 01-29-2023 Neutrophils (Bld) [#/Vol] 7.7 10*3/uL 1.8-7.7 [facility] Neutrophils/100 WBC Auto (Bl d)Ordered By: Ashlyn Donato on 01-29-2023 Neutrophils/100 WBC (Bld) 74.5 % . [facility] No Panel InformationOrdered By: Ashlyn Donato on 01-29-2023 Estimated GFR (CKD-EPI) > 60.0 mL/Min [facility] Creatinine Clearance (Chem 73.17 [facility] Nucleated erythrocytes [Pres ence] in Blood by Automated countOrdered By: Ashlyn Donato on 01-29-2023 Nucleated RBC Auto Ql (Bld) 0.1 /100{WBC} 0-0.5 [facility] Platelet mean volume Auto (B ld) [Entitic vol]Ordered By: Ashlyn Donato on 01-29-2023 Platelet mean volume (Bld) [Entitic vol] 9.0 fL 6.6-10.1 [facility] Platelets Auto (Bld) [#/Vol] Ordered By: Ashlyn Donato on 01-29-2023 Platelets (Bld) [#/Vol] 353 10*3/uL 150-450 [facility] Potassium [Moles/volume] in Serum or PlasmaOrdered By: Ashlyn Donato on 01-29-2023 Potassium [Moles/Vol] 4.2 mmol/L 3.5-5.1 [facility] RBC Auto (Bld) [#/Vol]Ordere d By: Ashlyn Donato on 01-29-2023 RBC (Bld) [#/Vol] 3.41 10*6/uL 3.90-5.60 [facility] Serum or plasma anion gap de terminationOrdered By: Ashlyn Donato on 01-29-2023 Anion gap [Moles/Vol] 13.9 mmol/L 6.0-15.0 [facility] Sodium [Moles/volume] in Ser um or PlasmaOrdered By: Ashlyn Donato on 01-29-2023 Sodium [Moles/Vol] 138 mmol/L 136-145 [facility] Urea nitrogen [Mass/volume] in Serum or PlasmaOrdered By: Ashlyn Donato on 01-29-2023 Urea nitrogen [Mass/Vol] 22 mg/dL 7-25 [facility] WBC Auto (Bld) [#/Vol]Ordere d By: Ashlyn Donato on 01-29-2023 WBC (Bld) [#/Vol] 10.3 10*3/uL 4.1-10.5 [facility] Glucose Poct Glucometerson 1 03-31-2022 Glucose [Mass/Vol] 114 mg/dL Normal [facility] Comment on above: Result Comment: [facility] Glucose Reference Range is dependent on time and content of last meal. Glucose of more than 200 mg/dL in a nonstressed, ambulatory subject supports the diagnosis of Diabetes Mellitus. PERFORMED BY: [facility] [address] [place] [address] PATHOLOGIST ASSISTANT CENTER DIRECTOR ATUL TRACY M.D. Performed By: #### G LULS #### Point of Care testing , Retail - Clinical Noteon Retail - Clinical Note [id number] Normal [facility] Glucose Poct Glucometerson 1 03-30-2022 Glucose [Mass/Vol] 101 mg/dL Normal [facility] Comment on above: Result Comment: [place] Glucose Reference Range is dependent on time and content of last meal. Glucose of more than 200 mg/dL in a nonstressed, ambulatory subject supports the diagnosis of Diabetes Mellitus. PERFORMED BY: [place] [id number] PATHOLOGIST ASSISTANT CENTER DIRECTOR ATUL TRACY M.D. Performed By: #### G LULS #### Point of Care testing , CT head/brain wo conon 01-26 CT head/brain wo con [facility] Main [place] [address] [place], [place] [id number] CT Scan Report Signed Patient: Park Guidry MR#: [id number] : 1940 Acct:[id number] Age/Sex: 82 / M ADM Date: 01/19/23 Loc: Room: [address] [place] [address] Type: ADM IN Attending Dr: Marc Mckinney MD Copies to: MD Ashlyn Busby APRN Ordering Provider: Ashlyn Donato APRN Date of Service: 01/26/23 CT/CT head/brain wo con: f/u head injury CT BRAIN WITHOUT CONTRAST: CLINICAL HISTORY: Head injury COMPARISON: None TECHNIQUE: Contiguous axial unenhanced images were obtained through the brain. This CT exam was performed using one or more following dose reduction techniques: Automated exposure control, adjustment of the mA and/or kV according to patient size, or use of iterative reconstruction technique. FINDINGS: There is generalized atrophy. The ventricles are within normal limits for size and position. Mild microvascular changes are noted. There are no additional areas of abnormal attenuation. There is no hemorrhage, mass effect or extra-axial collections. The calvarium is intact. There is right ethmoid mucosal thickening. The mastoid air cells are poorly developed. Carotid siphon and vertebral artery plaque are seen. CT/CT head/brain wo con IMPRESSION: ATROPHY AND SMALL VESSEL ISCHEMIC CHANGES. NO ACUTE INTRACRANIAL TRAUMA. Impression dictated by: Akiko De La Fuente M.D.01/26/2023 7:21 AM Dictation Location: [place] [address] Transcribed By: GRISELDA 01/26/23720 Dictated By: Akiko De La Fuente MD 01/26/23716 Signed By: 01/26/23720 [facility] Glucose Poct Glucometerson 1 03-29-2022 Glucose [Mass/Vol] 122 mg/dL Normal [facility] Comment on above: Result Comment: [place] Glucose Reference Range is dependent on time and content of last meal. Glucose of more than 200 mg/dL in a nonstressed, ambulatory subject supports the diagnosis of Diabetes Mellitus. PERFORMED BY: [place] [address] PATHOLOGIST ASSISTANT CENTER DIRECTOR ATUL TRACY M.D. Performed By: #### G LULS #### Point of Care testing , A1C with Estimated Average G [facility] 01-25-2023 Glucose [Mass/Vol] 134 mg/dL Normal [facility] Comment on above: Result Comment: PERF ORMED BY: [place] [address] PATHOLOGIST ASSISTANT CENTER DIRECTOR ATUL TRACY M.D. Performed By: #### A 1C WT eA #### [place] [id number] [facility] HbA1c (Bld) [Mass fraction] 6.3 % High 4.3-5.6 [facility] Comment on above: Result Comment: Incr eased risk for diabetes: 5.7 - 6.4 diabetes: >6.4 glycemic control for adults with diabetes: <7.0 Performed By: #### A 1C WT eA #### [facility] [address] [place] [address] Basic Metabolic Panelon 12- Anion gap [Moles/Vol] 10.1 mmol/L Normal 6.0-15.0 [facility] Comment on above: Performed By: #### C BC, BMP #### [place] [address] [place] Calcium [Mass/Vol] 8.5 mg/dL Low 8.6-10.3 [facility] Comment on above: Performed By: #### C BC, BMP #### [facility] [address] [place] [address] [place] Chloride [Moles/Vol] 105 mmol/L Normal 98-107 [facility] Comment on above: Performed By: #### C BC, BMP #### [facility] [address] CO2 [Moles/Vol] 27.0 mmol/L Normal 21.0-31.0 [facility] Comment on above: Performed By: #### C BC, BMP #### [address] Creatinine [Mass/Vol] 0.81 mg/dL Normal 0.70-1.30 [facility] Comment on above: Performed By: #### C BC, BMP #### [place] [address] [place] Creatinine Clr Calc Pharmacy 72.27 [facility] Comment on above: Result Comment: PERF ORMED BY: [place] [address] PATHOLOGIST ASSISTANT CENTER DIRECTOR ATUL TRACY M.D. Performed By: #### C BC, BMP #### [place] [address] [place] GFR/1.73 sq M.predicted MDRD (S/P/Bld) [Vol rate/Area] mL/min/{1.73_m2} [facility] Comment on above: Performed By: #### C BC, BMP #### [place] [address] [place] Glucose [Mass/Vol] 130 mg/dL High 70-100 [facility] Comment on above: Result Comment: [place] Glucose Reference Range is dependent on time and content of last meal. Glucose of more than 200 mg/dL in a nonstressed, ambulatory subject supports the diagnosis of Diabetes Mellitus. ADA recommended reference range Performed By: #### C BC, BMP #### [address] Potassium [Moles/Vol] 4.1 mmol/L Normal 3.5-5.1 [facility] Comment on above: Performed By: #### C BC, BMP #### [address] Sodium [Moles/Vol] 138 mmol/L Normal 136-145 [facility] Comment on above: Performed By: #### C BC, BMP #### [address] Urea nitrogen [Mass/Vol] 23 mg/dL Normal 7-25 [facility] Comment on above: Performed By: #### C BC, BMP #### [address] Complete Blood Count Auto Di ffon 01-25-2023 Basophils (Bld) [#/Vol] 0.1 10*3/uL Normal 0.0-0.2 [facility] Comment on above: Result Comment: PERF ORMED BY: [place] [address] PATHOLOGIST ASSISTANT CENTER DIRECTOR ATUL TRACY M.D. Performed By: #### C BC, BMP #### [address] Basophils/100 WBC (Bld) 1.1 % Normal . [facility] Comment on above: Performed By: #### C BC, BMP #### [place] [address] [place] Eosinophils (Bld) [#/Vol] 0.4 10*3/uL Normal 0.0-0.45 [facility] Comment on above: Performed By: #### C BC, BMP #### [address] Eosinophils/100 WBC (Bld) 4.3 % Normal . [facility] Comment on above: Performed By: #### C BC, BMP #### [address] Erythrocyte distribution width (RBC) [Ratio] 13.5 % Normal 12.0-14.8 [facility] Comment on above: Performed By: #### C BC, BMP #### [facility] [address] Hematocrit (Bld) [Volume fraction] 29.7 % Low 38.8-50.0 [facility] Comment on above: Performed By: #### C BC, BMP #### [address] Hemoglobin (Bld) [Mass/Vol] 10.0 g/dL Low 13.0-17.0 [facility] Comment on above: Performed By: #### C BC, BMP #### [address] Lymphocytes (Bld) [#/Vol] 0.9 10*3/uL Low 1.00-4.8 [facility] Comment on above: Performed By: #### C BC, BMP #### [address] Lymphocytes/100 WBC (Bld) 8.2 % Normal . [facility] Comment on above: Performed By: #### C BC, BMP #### [address] MCH (RBC) [Entitic mass] 30.2 pg Normal 27.5-35.2 [facility] Comment on above: Performed By: #### C BC, BMP #### [address] MCV (RBC) [Entitic vol] 89.9 fL Normal 83.5-101 [facility] Comment on above: Performed By: #### C BC, BMP #### [address] Mean Corpuscular HGB Conc 33.6 g/dL Normal 32.5-35.6 [facility] Comment on above: Performed By: #### C BC, BMP #### [address] Monocytes (Bld) [#/Vol] 0.9 10*3/uL High 0.0-0.8 [facility] Comment on above: Performed By: #### C BC, BMP #### [facility] [address] Monocytes/100 WBC (Bld) 8.5 % Normal . [facility] Comment on above: Performed By: #### C BC, BMP #### [facility] [address] Neutrophils (Bld) [#/Vol] 8.1 10*3/uL High 1.8-7.7 [facility] Comment on above: Performed By: #### C BC, BMP #### [facility] [address] Neutrophils/100 WBC (Bld) 77.9 % Normal . [facility] Comment on above: Performed By: #### C BC, BMP #### [facility] [address] NRBC% 0.1 /100{WBC} Normal 0-0.5 [facility] Comment on above: Performed By: #### C BC, BMP #### [facility] [address] Platelet mean volume (Bld) [Entitic vol] 9.2 fL Normal 6.6-10.1 [facility] Comment on above: Performed By: #### C BC, BMP #### [facility] [address] [place] [address] [place] Platelets (Bld) [#/Vol] 298 10*3/uL Normal 150-450 [facility] Comment on above: Performed By: #### C BC, BMP #### [facility] [address] [place] [address] [place] RBC (Bld) [#/Vol] 3.30 10*6/uL Low 3.90-5.60 [facility] Comment on above: Performed By: #### C BC, BMP #### [facility] [address] [place] [address] [place] WBC (Bld) [#/Vol] 10.4 10*3/uL Normal 4.1-10.5 [facility] Comment on above: Performed By: #### C BC, BMP #### [place] [id number] [facility] Glucose mean value [Mass/vol ume] in Blood Estimated from glycated hemoglobinOrdered By: Ashlyn Donato on 01-25-2023 Average glucose Estimated from glycated hemoglobin (Bld) [Mass/Vol] 134 mg/dL [facility] Hemoglobin A1c percentageOrd ered By: Ashlyn Donato on 01-25-2023 HbA1c (Bld) [Mass fraction] 6.3 % 4.3-5.6 [facility] Comment on above: Increased risk for d iabetes: 5.7 - 6.4diabetes: >6.4glycemic control for adults with diabetes: <7.0 XR ribs RT 2Von 01-21-2023 XR ribs RT 2V [facility] Main [place] [address] [place], [place] [phone] XRay Report Signed Patient: Park Guidry MR#: [id number] : 1940 Acct:[id number] Age/Sex: 82 / M ADM Date: 01/19/23 Loc: Room: [address] [place] [address] Type: ADM IN Attending Dr: Marc Mckinney MD Copies to: MD Ashlyn Busby APRN Ordering Provider: Ashlyn Donato APRN Date of Service: 01/21/23 XR/XR ribs RT 2V: fall, right rib cage pain XR ribs RT 2V 01/21/2023 12:34 PM SIGNS AND SYMPTOMS: fall, right rib cage pain PROTOCOL: Oblique radiographs of the right COMPARISON: None FINDINGS: There are mildly displaced fractures of the lateral aspect of the right fourth and fifth ribs. There is a dextro convex curvature of the thoracolumbar spine with multilevel degenerative change. Atherosclerotic changes are noted in the thoracic aorta. No definite pneumothorax. XR/XR ribs RT 2V IMPRESSION: There are mildly displaced fractures of the lateral aspect of the right fourth and fifth ribs. No definite pneumothorax. Impression dictated by: Alonso Willis M.D.01/21/2023 4:33 PM Dictation Location: [place] [address] Transcribed By: [facility] 01/21/231632 Dictated By: Alonso Willis II, MD 01/21/231630 Signed By: 01/21/23 163 Normal [facility] Alanine aminotransferase [En zymatic activity/volume] in Serum or PlasmaOrdered By: Marc Mckinney on 01-20-2023 ALT [Catalytic activity/Vol] 4 U/L 7-52 [facility] Albumin [Mass/volume] in Ser um or Plasma by Bromocresol green (BCG) dye binding methoOrdered By: Marc Mckinney on 01-20-2023 Albumin BCG dye [Mass/Vol] 3.0 g/dL 3.5-5.7 [facility] Alkaline phosphatase [Enzyma tic activity/volume] in Serum or PlasmaOrdered By: Marc Mckinney on 01-20-2023 ALP [Catalytic activity/Vol] 64 U/L 34-104 [facility] Aspartate aminotransferase [ Enzymatic activity/volume] in Serum or PlasmaOrdered By: Uatsdinnatalia Mckinney on 01-20-2023 AST [Catalytic activity/Vol] 12 U/L 13-39 [facility] Bilirubin.total [Mass/volume ] in Serum or PlasmaOrdered By: Marc Mckinney on 01-20-2023 Bilirubin [Mass/Vol] 0.8 mg/dL 0.3-1.0 [facility] Complete Blood Count Auto Di ffon 01-20-2023 Basophils (Bld) [#/Vol] 0.1 10*3/uL Normal 0.0-0.2 [facility] Comment on above: Result Comment: PERF ORMED BY: [place] [id number] PATHOLOGIST ASSISTANT CENTER DIRECTOR ATUL TRACY M.D. Performed By: #### C BC, CMP, PAB #### [address] Basophils/100 WBC (Bld) 0.5 % Normal . [facility] Comment on above: Performed By: #### C BC, CMP, PAB #### [facility] [address] [place] [address] [place] Eosinophils (Bld) [#/Vol] 0.2 10*3/uL Normal 0.0-0.45 [facility] Comment on above: Performed By: #### C BC, CMP, PAB #### [facility] [address] [place] [address] [place] Eosinophils/100 WBC (Bld) 1.8 % Normal . [facility] Comment on above: Performed By: #### C BC, CMP, PAB #### [facility] [address] Erythrocyte distribution width (RBC) [Ratio] 13.6 % Normal 12.0-14.8 [facility] Comment on above: Performed By: #### C BC, CMP, PAB #### [address] Hematocrit (Bld) [Volume fraction] 30.9 % Low 38.8-50.0 [facility] Comment on above: Performed By: #### C BC, CMP, PAB #### [place] [address] [place] Hemoglobin (Bld) [Mass/Vol] 10.4 g/dL Low 13.0-17.0 [facility] Comment on above: Performed By: #### C BC, CMP, PAB #### [place] [address] [place] Lymphocytes (Bld) [#/Vol] 0.8 10*3/uL Low 1.00-4.8 [facility] Comment on above: Performed By: #### C BC, CMP, PAB #### [place] [address] [place] Lymphocytes/100 WBC (Bld) 7.0 % Normal . [facility] Comment on above: Performed By: #### C BC, CMP, PAB #### [facility] [address] [place] [address] [place] MCH (RBC) [Entitic mass] 30.0 pg Normal 27.5-35.2 [facility] Comment on above: Performed By: #### C BC, CMP, PAB #### [facility] [address] MCV (RBC) [Entitic vol] 89.2 fL Normal 83.5-101 [facility] Comment on above: Performed By: #### C BC, CMP, PAB #### [facility] [address] Mean Corpuscular HGB Conc 33.7 g/dL Normal 32.5-35.6 [facility] Comment on above: Performed By: #### C BC, CMP, PAB #### [facility] [address] Monocytes (Bld) [#/Vol] 1.1 10*3/uL High 0.0-0.8 [facility] Comment on above: Performed By: #### C BC, CMP, PAB #### [facility] [address] Monocytes/100 WBC (Bld) 9.9 % Normal . [facility] Comment on above: Performed By: #### C BC, CMP, PAB #### [facility] [address] [place] [address] [place] Neutrophils (Bld) [#/Vol] 8.7 10*3/uL High 1.8-7.7 [facility] Comment on above: Performed By: #### C BC, CMP, PAB #### [facility] [address] [place] [address] [place] Neutrophils/100 WBC (Bld) 80.8 % Normal . [facility] Comment on above: Performed By: #### C BC, CMP, PAB #### [facility] [address] [place] [address] [place] NRBC% 0.1 /100{WBC} Normal 0-0.5 [facility] Comment on above: Performed By: #### C BC, CMP, PAB #### [facility] [address] Platelet mean volume (Bld) [Entitic vol] 10.5 fL High 6.6-10.1 [facility] Comment on above: Performed By: #### C BC, CMP, PAB #### [facility] [address] [place] [address] Platelets (Bld) [#/Vol] 169 10*3/uL Normal 150-450 [facility] Comment on above: Performed By: #### C BC, CMP, PAB #### [address] RBC (Bld) [#/Vol] 3.47 10*6/uL Low 3.90-5.60 [facility] Comment on above: Performed By: #### C BC, CMP, PAB #### [address] WBC (Bld) [#/Vol] 10.8 10*3/uL High 4.1-10.5 [facility] Comment on above: Performed By: #### C BC, CMP, PAB #### [address] Comprehensive Metabolic Pane thuy 01-20-2023 Albumin [Mass/Vol] 3.0 g/dL Low 3.5-5.7 [facility] Comment on above: Performed By: #### C BC, CMP, PAB #### [address] Albumin/Globulin [Mass ratio] 1.0 {ratio} Normal [facility] Comment on above: Performed By: #### C BC, CMP, PAB #### [address] ALP [Catalytic activity/Vol] 64 U/L Normal 34-104 [facility] Comment on above: Performed By: #### C BC, CMP, PAB #### [address] ALT [Catalytic activity/Vol] 4 U/L Low 7-52 [facility] Comment on above: Performed By: #### C BC, CMP, PAB #### [address] Anion gap [Moles/Vol] 11.4 mmol/L Normal 6.0-15.0 [facility] Comment on above: Performed By: #### C BC CMP, PAB #### [facility] [address] AST [Catalytic activity/Vol] 12 U/L Low 13-39 [facility] Comment on above: Performed By: #### C BC CMP, PAB #### [facility] [address] Bilirubin [Mass/Vol] 0.8 mg/dL Normal 0.3-1.0 [facility] Comment on above: Performed By: #### C YAKOV CMP, PAB #### [facility] [address] Calcium [Mass/Vol] 8.5 mg/dL Low 8.6-10.3 [facility] Comment on above: Performed By: #### C BC, CMP, PAB #### [address] Chloride [Moles/Vol] 103 mmol/L Normal 98-107 [facility] Comment on above: Performed By: #### C YAKOV CMP, PAB #### [facility] [address] CO2 [Moles/Vol] 24.4 mmol/L Normal 21.0-31.0 [facility] Comment on above: Performed By: #### C BC, CMP, PAB #### [facility] [address] Creatinine [Mass/Vol] 0.68 mg/dL Low 0.70-1.30 [facility] Comment on above: Performed By: #### C BC, CMP, PAB #### [facility] [address] [place] [address] [place] Creatinine Clr Calc Pharmacy 121.00 [facility] Comment on above: Performed By: #### C BC, CMP, PAB #### [facility] [address] [place] [address] [place] GFR/1.73 sq M.predicted MDRD (S/P/Bld) [Vol rate/Area] mL/min/{1.73_m2} Normal [facility] Comment on above: Performed By: #### C INES NAGY, PAB #### [address] Globulin (S) [Mass/Vol] 2.9 g/dL [facility] Comment on above: Performed By: #### C INES NAGY, PAB #### [address] Glucose [Mass/Vol] 130 mg/dL High 70-100 [facility] Comment on above: Result Comment: [facility] Glucose Reference Range is dependent on time and content of last meal. Glucose of more than 200 mg/dL in a nonstressed, ambulatory subject supports the diagnosis of Diabetes Mellitus. ADA recommended reference range Performed By: #### C INES NAGY, PAB #### [address] Potassium [Moles/Vol] 3.8 mmol/L Normal 3.5-5.1 [facility] Comment on above: Performed By: #### C INES NAGY, PAB #### [address] Protein [Mass/Vol] 5.9 g/dL Low 6.4-8.9 [facility] Comment on above: Performed By: #### C INES NAGY, PAB #### [address] Sodium [Moles/Vol] 135 mmol/L Low 136-145 [facility] Comment on above: Performed By: #### C INES NAGY, PAB #### [address] Urea nitrogen [Mass/Vol] 16 mg/dL Normal 7-25 [facility] Comment on above: Performed By: #### C BC CMP, PAB #### [address] Globulin Calc (S) [Mass/Vol] Ordered By: Marc Mckinney on 01-20-2023 Globulin (S) [Mass/Vol] 2.9 g/dL [facility] Prealbuminon 01-20-2023 Prealbumin [Mass/Vol] 8.4 mg/dL Low 17.0-34.0 [facility] Comment on above: Result Comment: PERF ORMED BY: [facility] [address] [place] [address] PATHOLOGIST ASSISTANT CENTER DIRECTOR ATUL TRACY M.D. Performed By: #### C BC, CMP, PAB #### [facility] [address] Prealbumin [Mass/volume] in Serum or PlasmaOrdered By: Marc Mckinney on 01-20-2023 Prealbumin [Mass/Vol] 8.4 mg/dL 17.0-34.0 [facility] Protein [Mass/volume] in Ser um or PlasmaOrdered By: Marc Mckinney on 01-20-2023 Protein [Mass/Vol] 5.9 g/dL 6.4-8.9 [facility] Serum or plasma albumin/glob ulin mass ratioOrdered By: Marc Mckinney on 01-20-2023 Albumin/Globulin [Mass ratio] 1.0 {ratio} [facility] B12/Folate Panelon 3 Cobalamin (Vitamin B12) [Mass/Vol] 296 pg/mL Normal 232-1245 [facility] Comment on above: Performed By: #### V D25, GLU, CBC, ALB, PT, PTT, ALCB, BUN, CREG, GLYHGB, FT4, TROPI, TSHX, LYTE #### [facility] [place] [address] Rag Collector: Paul Hodge MD Folic Acid 5.2 ng/mL Normal >4.8 [facility] Comment on above: Performed By: #### V D25, GLU, CBC, ALB, PT, PTT, ALCB, BUN, CREG, GLYHGB, FT4, TROPI, TSHX, LYTE #### [address] [id number] Rag Collector: Paul Hodge MD Basic Metabolic Profon 01-19 Anion gap [Moles/Vol] 7 mmol/L Low 9-17 [facility] Comment on above: Performed By: #### V D25, GLU, CBC, ALB, PT, PTT, ALCB, BUN, CREG, GLYHGB, FT4, TROPI, TSHX, LYTE #### [address] [id number] Rag Collector: Paul Hodge MD Calcium [Mass/Vol] 8.5 mg/dL Low 8.6-10.4 [facility] Comment on above: Performed By: #### V D25, GLU, CBC, ALB, PT, PTT, ALCB, BUN, CREG, GLYHGB, FT4, TROPI, TSHX, LYTE #### [address] [id number] Rag Collector: Paul Hodge MD Chloride [Moles/Vol] 101 mmol/L Normal 98-107 [facility] Comment on above: Performed By: #### V D25, GLU, CBC, ALB, PT, PTT, ALCB, BUN, CREG, GLYHGB, FT4, TROPI, TSHX, LYTE #### [address] [id number] Rag Collector: Paul Hodge MD CO2 [Moles/Vol] 26 mmol/L Normal 20-31 [facility] Comment on above: Performed By: #### V D25, GLU, CBC, ALB, PT, PTT, ALCB, BUN, CREG, GLYHGB, FT4, TROPI, TSHX, LYTE #### [address] [id number] Rag Collector: Paul Hodge MD Creatinine [Mass/Vol] 0.7 mg/dL Normal 0.7-1.2 [facility] Comment on above: Performed By: #### V D25, GLU, CBC, ALB, PT, PTT, ALCB, BUN, CREG, GLYHGB, FT4, TROPI, TSHX, LYTE #### [address] [address] Rag Collector: Paul Hodge MD GFR/1.73 sq M.predicted among non-blacks MDRD (S/P/Bld) [Vol rate/Area] mL/min/{1.73_m2} Normal >60 [facility] Comment on above: Result Comment: These results are not intended for use in patients <18 years of age. eGFR results are calculated without a race factor using the 2020 CKD-EPI equation. Careful clinical correlation is recommended, particularly when comparing to results calculated using previous equations. The CKD-EPI equation is less accurate in patients with extremes of muscle mass, extra-renal metabolism of creatine, excessive creatine ingestion, or following therapy that affects renal tubular secretion. Performed By: #### V D25, GLU, CBC, ALB, PT, PTT, ALCB, BUN, CREG, GLYHGB, FT4, TROPI, TSHX, LYTE #### [address] [address] Rag Collector: Paul Hodge MD Glucose [Mass/Vol] 124 mg/dL High 70-99 [facility] Comment on above: Performed By: #### V D25, GLU, CBC, ALB, PT, PTT, ALCB, BUN, CREG, GLYHGB, FT4, TROPI, TSHX, LYTE #### [address] [address] Rag Collector: Paul Hodge MD Potassium [Moles/Vol] 4.4 mmol/L Normal 3.7-5.3 [facility] Comment on above: Performed By: #### V D25, GLU, CBC, ALB, PT, PTT, ALCB, BUN, CREG, GLYHGB, FT4, TROPI, TSHX, LYTE #### [address] [id number] Rag Collector: Paul Hodge MD Sodium [Moles/Vol] 134 mmol/L Low 135-144 [facility] Comment on above: Performed By: #### V D25, GLU, CBC, ALB, PT, PTT, ALCB, BUN, CREG, GLYHGB, FT4, TROPI, TSHX, LYTE #### [address] [id number] Rag Collector: Paul Hodge MD Urea nitrogen [Mass/Vol] 20 mg/dL Normal 8-23 [facility] Comment on above: Performed By: #### V D25, GLU, CBC, ALB, PT, PTT, ALCB, BUN, CREG, GLYHGB, FT4, TROPI, TSHX, LYTE #### [address] [id number] Rag Collector: Paul Hodge MD CBC with Diffon 01-19-2023 Abs. Basophil 0.11 k/uL Normal 0.0-0.2 [facility] Comment on above: Performed By: #### V D25, GLU, CBC, ALB, PT, PTT, ALCB, BUN, CREG, GLYHGB, FT4, TROPI, TSHX, LYTE #### [address] [id number] Rag Collector: Paul Hodge MD Abs.Imm.Granulocyte 0.11 k/uL Normal 0.00-0.30 [facility] Comment on above: Performed By: #### V D25, GLU, CBC, ALB, PT, PTT, ALCB, BUN, CREG, GLYHGB, FT4, TROPI, TSHX, LYTE #### [address] [id number] Rag Collector: Paul Hodge MD Abs.Neutrophil (Seg) 8.34 k/uL High 1.8-7.7 [facility] Comment on above: Performed By: #### V D25, GLU, CBC, ALB, PT, PTT, ALCB, BUN, CREG, GLYHGB, FT4, TROPI, TSHX, LYTE #### [address] [id number] Rag Collector: Paul Hodge MD Basophils/100 WBC (Bld) 1 % Normal 0-2 [facility] Comment on above: Performed By: #### V D25, GLU, CBC, ALB, PT, PTT, ALCB, BUN, CREG, GLYHGB, FT4, TROPI, TSHX, LYTE #### [place] [address] Rag Collector: Paul Hodge MD Eosinophils (Bld) [#/Vol] 0.43 10*3/uL High 0.0-0.4 [facility] Comment on above: Performed By: #### V D25, GLU, CBC, ALB, PT, PTT, ALCB, BUN, CREG, GLYHGB, FT4, TROPI, TSHX, LYTE #### [place] [address] Rag Collector: Paul Hodge MD Eosinophils/100 WBC (Bld) 4 % Normal 1-4 [facility] Comment on above: Performed By: #### V D25, GLU, CBC, ALB, PT, PTT, ALCB, BUN, CREG, GLYHGB, FT4, TROPI, TSHX, LYTE #### [place] [address] Rag Collector: Paul Hodge MD Immature granulocytes/100 WBC (Bld) 1 % High 0 [facility] Comment on above: Performed By: #### V D25, GLU, CBC, ALB, PT, PTT, ALCB, BUN, CREG, GLYHGB, FT4, TROPI, TSHX, LYTE #### [place] [id number] Rag Collector: Paul Hodge MD Lymphocytes (Bld) [#/Vol] 0.64 10*3/uL Low 1.0-4.8 [facility] Comment on above: Performed By: #### V D25, GLU, CBC, ALB, PT, PTT, ALCB, BUN, CREG, GLYHGB, FT4, TROPI, TSHX, LYTE #### [address] [id number] Rag Collector: Paul Hodge MD Lymphocytes/100 WBC (Bld) 6 % Low 24-44 [facility] Comment on above: Performed By: #### V D25, GLU, CBC, ALB, PT, PTT, ALCB, BUN, CREG, GLYHGB, FT4, TROPI, TSHX, LYTE #### [place] [address] Rag Collector: Paul Hodge MD Monocytes (Bld) [#/Vol] 1.07 10*3/uL High 0.1-0.8 [facility] Comment on above: Performed By: #### Louise D25, GLU, CBC, ALB, PT, PTT, ALCB, BUN, CREG, GLYHGB, FT4, TROPI, TSHX, LYTE #### [address] [id number] Rag Collector: Paul Hodge MD Monocytes/100 WBC (Bld) 10 % High 1-7 [facility] Comment on above: Performed By: #### V D25, GLU, CBC, ALB, PT, PTT, ALCB, BUN, CREG, GLYHGB, FT4, TROPI, TSHX, LYTE #### [address] [address] Rag Collector: Paul Hodge MD Morphology Balta (Bld) [Interp] Normal Normal [facility] Comment on above: Performed By: #### V D25, GLU, CBC, ALB, PT, PTT, ALCB, BUN, CREG, GLYHGB, FT4, TROPI, TSHX, LYTE #### [address] [id number] Rag Collector: Paul Hodge MD Neutrophil (Seg) 78 % High 36-66 [facility] Comment on above: Performed By: #### V D25, GLU, CBC, ALB, PT, PTT, ALCB, BUN, CREG, GLYHGB, FT4, TROPI, TSHX, LYTE #### [address] [id number] Rag Collector: Paul Hodge MD Erythrocyte distribution width (RBC) [Ratio] 13.5 % Normal 11.8-14.4 [facility] Comment on above: Performed By: #### V D25, GLU, CBC, ALB, PT, PTT, ALCB, BUN, CREG, GLYHGB, FT4, TROPI, TSHX, LYTE #### [address] [id number] Rag Collector: Paul Hodge MD Hematocrit (Bld) [Volume fraction] 33.1 % Low 40.7-50.3 [facility] Comment on above: Performed By: #### V D25, GLU, CBC, ALB, PT, PTT, ALCB, BUN, CREG, GLYHGB, FT4, TROPI, TSHX, LYTE #### [address] [id number] Rag Collector: Paul Hodge MD Hemoglobin (Bld) [Mass/Vol] 10.9 g/dL Low 13.0-17.0 [facility] Comment on above: Performed By: #### V D25, GLU, CBC, ALB, PT, PTT, ALCB, BUN, CREG, GLYHGB, FT4, TROPI, TSHX, LYTE #### [address] [address] Rag Collector: Paul Hodge MD MCH (RBC) [Entitic mass] 30.4 pg Normal 25.2-33.5 [facility] Comment on above: Performed By: #### Louise D25, GLU, CBC, ALB, PT, PTT, ALCB, BUN, CREG, GLYHGB, FT4, TROPI, TSHX, LYTE #### [address] [address] Rag Collector: Paul Hodge MD MCHC (RBC) [Mass/Vol] 32.9 g/dL Normal 28.4-34.8 [facility] Comment on above: Performed By: #### Louies D25, GLU, CBC, ALB, PT, PTT, ALCB, BUN, CREG, GLYHGB, FT4, TROPI, TSHX, LYTE #### [address] [address] Rag Collector: Paul Hodge MD MCV (RBC) [Entitic vol] 92.5 fL Normal 82.6-102.9 [facility] Comment on above: Performed By: #### Louise D25, GLU, CBC, ALB, PT, PTT, ALCB, BUN, CREG, GLYHGB, FT4, TROPI, TSHX, LYTE #### [address] [address] Rag Collector: Paul Hodge MD NRBC Automated 0.0 per 100 WBC Normal 0.0 [facility] Comment on above: Performed By: #### V D25, GLU, CBC, ALB, PT, PTT, ALCB, BUN, CREG, GLYHGB, FT4, TROPI, TSHX, LYTE #### [address] [address] Rag Collector: Paul Hodge MD Platelet mean volume (Bld) [Entitic vol] 12.1 fL Normal 8.1-13.5 [facility] Comment on above: Performed By: #### V D25, GLU, CBC, ALB, PT, PTT, ALCB, BUN, CREG, GLYHGB, FT4, TROPI, TSHX, LYTE #### [address] [address] Rag Collector: Paul Hodge MD Platelets (Bld) [#/Vol] 153 10*3/uL Normal 138-453 [facility] Comment on above: Performed By: #### V D25, GLU, CBC, ALB, PT, PTT, ALCB, BUN, CREG, GLYHGB, FT4, TROPI, TSHX, LYTE #### [address] [id number] Rag Collector: Paul Hodge MD RBC (Bld) [#/Vol] 3.58 10*6/uL Low 4.21-5.77 [facility] Comment on above: Performed By: #### V D25, GLU, CBC, ALB, PT, PTT, ALCB, BUN, CREG, GLYHGB, FT4, TROPI, TSHX, LYTE #### [address] [id number] Rag Collector: Paul Hodge MD WBC (Bld) [#/Vol] 10.7 10*3/uL Normal 3.5-11.3 [facility] Comment on above: Performed By: #### V D25, GLU, CBC, ALB, PT, PTT, ALCB, BUN, CREG, GLYHGB, FT4, TROPI, TSHX, LYTE #### [address] [phone] Rag Collector: Paul Hodge MD Vitamin D 25 OHon 01-19-2023 Vitamin D 25 OH 19.3 ng/mL Low 30.0-100.0 [facility] Comment on above: Result Comment: Reference Range: Vitamin D status Range Deficiency <20 ng/mL Mild Deficiency 20-30 ng/mL Sufficiency 30-100 ng/mL Toxicity >100 ng/mL Performed By: #### V D25, GLU, CBC, ALB, PT, PTT, ALCB, BUN, CREG, GLYHGB, FT4, TROPI, TSHX, LYTE #### [facility] [address] [place] [address] [id number] Rag Collector: Paul Hodge MD XR CHEST PORTABLEon 01-20-20 XR CHEST PORTABLE EXAMINATION: ONE XRAY VIEW OF THE CHEST 01/19/2023 10:43 am COMPARISON: January 16, 2023 HISTORY: ORDERING SYSTEM PROVIDED HISTORY: Right rib pain TECHNOLOGIST PROVIDED HISTORY: Right rib pain FINDINGS: Prominence of the probable Co vascular markings involving the lungs. Atelectasis or scarring in the region of the left costophrenic angle. No pleural effusion or pneumothorax identified. Enlargement of the heart. Prominent mediastinal silhouette. This is likely exaggerated by patient rotation. IMPRESSION: Prominence of bronchovascular markings of the lungs related to early pulmonary edema versus viral pneumonia. Cardiomegaly. Interpreted by: Matteo Milian MD Signed by: Matteo Milian MD 01/19/23 Final result Normal [facility] Basic Metabolic Profon 01-18 Anion gap [Moles/Vol] 12 mmol/L Normal 9-17 [facility] Comment on above: Performed By: #### V D25, GLU, CBC, ALB, PT, PTT, ALCB, BUN, CREG, GLYHGB, FT4, TROPI, TSHX, LYTE #### [facility] [address] [place] [address] [phone] Rag Collector: Paul Hodge MD Calcium [Mass/Vol] 8.7 mg/dL Normal 8.6-10.4 [facility] Comment on above: Performed By: #### V D25, GLU, CBC, ALB, PT, PTT, ALCB, BUN, CREG, GLYHGB, FT4, TROPI, TSHX, LYTE #### [facility] [address] [place] [address] [id number] Rag Collector: Paul Hogde MD Chloride [Moles/Vol] 103 mmol/L Normal 98-107 [facility] Comment on above: Performed By: #### V D25, GLU, CBC, ALB, PT, PTT, ALCB, BUN, CREG, GLYHGB, FT4, TROPI, TSHX, LYTE #### [address] [address] Rag Collector: Paul Hodge MD CO2 [Moles/Vol] 21 mmol/L Normal 20-31 [facility] Comment on above: Performed By: #### V D25, GLU, CBC, ALB, PT, PTT, ALCB, BUN, CREG, GLYHGB, FT4, TROPI, TSHX, LYTE #### [place] [id number] Rag Collector: Paul Hodge MD Creatinine [Mass/Vol] 0.7 mg/dL Normal 0.7-1.2 [facility] Comment on above: Performed By: #### V D25, GLU, CBC, ALB, PT, PTT, ALCB, BUN, CREG, GLYHGB, FT4, TROPI, TSHX, LYTE #### [address] [address] Rag Collector: Paul Hodge MD GFR/1.73 sq M.predicted among non-blacks MDRD (S/P/Bld) [Vol rate/Area] mL/min/{1.73_m2} Normal >60 [facility] Comment on above: Result Comment: These results are not intended for use in patients <18 years of age. eGFR results are calculated without a race factor using the 2020 CKD-EPI equation. Careful clinical correlation is recommended, particularly when comparing to results calculated using previous equations. The CKD-EPI equation is less accurate in patients with extremes of muscle mass, extra-renal metabolism of creatine, excessive creatine ingestion, or following therapy that affects renal tubular secretion. Performed By: #### V D25, GLU, CBC, ALB, PT, PTT, ALCB, BUN, CREG, GLYHGB, FT4, TROPI, TSHX, LYTE #### [address] [phone] Rag Collector: Paul Hodge MD Glucose [Mass/Vol] 170 mg/dL High 70-99 [facility] Comment on above: Performed By: #### V D25, GLU, CBC, ALB, PT, PTT, ALCB, BUN, CREG, GLYHGB, FT4, TROPI, TSHX, LYTE #### [address] [id number] Rag Collector: Paul Hodge MD Potassium [Moles/Vol] 4.8 mmol/L Normal 3.7-5.3 [facility] Comment on above: Performed By: #### V D25, GLU, CBC, ALB, PT, PTT, ALCB, BUN, CREG, GLYHGB, FT4, TROPI, TSHX, LYTE #### [address] [phone] Rag Collector: Paul Hodge MD Sodium [Moles/Vol] 136 mmol/L Normal 135-144 [facility] Comment on above: Performed By: #### V D25, GLU, CBC, ALB, PT, PTT, ALCB, BUN, CREG, GLYHGB, FT4, TROPI, TSHX, LYTE #### [address] [phone] Rag Collector: Paul Hodge MD Urea nitrogen [Mass/Vol] 21 mg/dL Normal 8-23 [facility] Comment on above: Performed By: #### V D25, GLU, CBC, ALB, PT, PTT, ALCB, BUN, CREG, GLYHGB, FT4, TROPI, TSHX, LYTE #### [address] [phone] Rag Collector: Paul Hodge MD CBC with Diffon 01-18-2023 Abs. Basophil <0.03 Normal 0.00-0.20 [facility] Comment on above: Performed By: #### V D25, GLU, CBC, ALB, PT, PTT, ALCB, BUN, CREG, GLYHGB, FT4, TROPI, TSHX, LYTE #### [place] [id number] Rag Collector: Paul Hodge MD Abs.Imm.Granulocyte 0.09 k/uL Normal 0.00-0.30 [facility] Comment on above: Performed By: #### V D25, GLU, CBC, ALB, PT, PTT, ALCB, BUN, CREG, GLYHGB, FT4, TROPI, TSHX, LYTE #### [place] [id number] Rag Collector: Paul Hodge MD Abs.Neutrophil (Seg) 13.01 k/uL High 1.50-8.10 [facility] Comment on above: Performed By: #### V D25, GLU, CBC, ALB, PT, PTT, ALCB, BUN, CREG, GLYHGB, FT4, TROPI, TSHX, LYTE #### [place] [address] Rag Collector: Paul Hodge MD Basophils/100 WBC (Bld) 0 % Normal 0-2 [facility] Comment on above: Performed By: #### V D25, GLU, CBC, ALB, PT, PTT, ALCB, BUN, CREG, GLYHGB, FT4, TROPI, TSHX, LYTE #### [place] [address] Rag Collector: Paul Hodge MD Eosinophils (Bld) [#/Vol] 0.03 10*3/uL Normal 0.00-0.44 [facility] Comment on above: Performed By: #### V D25, GLU, CBC, ALB, PT, PTT, ALCB, BUN, CREG, GLYHGB, FT4, TROPI, TSHX, LYTE #### [address] [id number] Rag Collector: Paul Hodge MD Eosinophils/100 WBC (Bld) 0 % Low 1-4 [facility] Comment on above: Performed By: #### V D25, GLU, CBC, ALB, PT, PTT, ALCB, BUN, CREG, GLYHGB, FT4, TROPI, TSHX, LYTE #### [address] [phone] Rag Collector: Paul Hodge MD Erythrocyte distribution width (RBC) [Ratio] 13.7 % Normal 11.8-14.4 [facility] Comment on above: Performed By: #### V D25, GLU, CBC, ALB, PT, PTT, ALCB, BUN, CREG, GLYHGB, FT4, TROPI, TSHX, LYTE #### [address] [phone] Rag Collector: Paul Hodge MD Hematocrit (Bld) [Volume fraction] 37.3 % Low 40.7-50.3 [facility] Comment on above: Performed By: #### V D25, GLU, CBC, ALB, PT, PTT, ALCB, BUN, CREG, GLYHGB, FT4, TROPI, TSHX, LYTE #### [address] [id number] Rag Collector: Paul Hodge MD Hemoglobin (Bld) [Mass/Vol] 11.9 g/dL Low 13.0-17.0 [facility] Comment on above: Performed By: #### V D25, GLU, CBC, ALB, PT, PTT, ALCB, BUN, CREG, GLYHGB, FT4, TROPI, TSHX, LYTE #### [address] [id number] Rag Collector: Paul Hodge MD Immature granulocytes/100 WBC (Bld) 1 % High 0 [facility] Comment on above: Performed By: #### V D25, GLU, CBC, ALB, PT, PTT, ALCB, BUN, CREG, GLYHGB, FT4, TROPI, TSHX, LYTE #### [address] [address] Rag Collector: Paul Hodge MD Lymphocytes (Bld) [#/Vol] 0.76 10*3/uL Low 1.10-3.70 [facility] Comment on above: Performed By: #### V D25, GLU, CBC, ALB, PT, PTT, ALCB, BUN, CREG, GLYHGB, FT4, TROPI, TSHX, LYTE #### [address] [address] Rag Collector: Paul Hodge MD Lymphocytes/100 WBC (Bld) 5 % Low 24-43 [facility] Comment on above: Performed By: #### V D25, GLU, CBC, ALB, PT, PTT, ALCB, BUN, CREG, GLYHGB, FT4, TROPI, TSHX, LYTE #### [address] [address] Rag Collector: Paul Hodge MD MCH (RBC) [Entitic mass] 29.7 pg Normal 25.2-33.5 [facility] Comment on above: Performed By: #### V D25, GLU, CBC, ALB, PT, PTT, ALCB, BUN, CREG, GLYHGB, FT4, TROPI, TSHX, LYTE #### [address] [address] Rag Collector: Paul Hodge MD MCHC (RBC) [Mass/Vol] 31.9 g/dL Normal 28.4-34.8 [facility] Comment on above: Performed By: #### V D25, GLU, CBC, ALB, PT, PTT, ALCB, BUN, CREG, GLYHGB, FT4, TROPI, TSHX, LYTE #### [address] [id number] Rag Collector: Paul Hodge MD MCV (RBC) [Entitic vol] 93.0 fL Normal 82.6-102.9 [facility] Comment on above: Performed By: #### V D25, GLU, CBC, ALB, PT, PTT, ALCB, BUN, CREG, GLYHGB, FT4, TROPI, TSHX, LYTE #### [address] [id number] Rag Collector: Paul Hodge MD Monocytes (Bld) [#/Vol] 1.30 10*3/uL High 0.10-1.20 [facility] Comment on above: Performed By: #### V D25, GLU, CBC, ALB, PT, PTT, ALCB, BUN, CREG, GLYHGB, FT4, TROPI, TSHX, LYTE #### [address] [id number] Rag Collector: Paul Hodge MD Monocytes/100 WBC (Bld) 9 % Normal 3-12 [facility] Comment on above: Performed By: #### V D25, GLU, CBC, ALB, PT, PTT, ALCB, BUN, CREG, GLYHGB, FT4, TROPI, TSHX, LYTE #### [address] [phone] Rag Collector: Paul Hodge MD Neutrophil (Seg) 85 % High 36-65 [facility] Comment on above: Performed By: #### V D25, GLU, CBC, ALB, PT, PTT, ALCB, BUN, CREG, GLYHGB, FT4, TROPI, TSHX, LYTE #### [address] [phone] Rag Collector: Paul Hodge MD NRBC Automated 0.0 per 100 WBC Normal 0.0 [facility] Comment on above: Performed By: #### V D25, GLU, CBC, ALB, PT, PTT, ALCB, BUN, CREG, GLYHGB, FT4, TROPI, TSHX, LYTE #### [address] [address] Rag Collector: Paul Hodge MD Platelet mean volume (Bld) [Entitic vol] 12.1 fL Normal 8.1-13.5 [facility] Comment on above: Performed By: #### V D25, GLU, CBC, ALB, PT, PTT, ALCB, BUN, CREG, GLYHGB, FT4, TROPI, TSHX, LYTE #### [place] [id number] Rag Collector: Paul Hodge MD Platelets (Bld) [#/Vol] 186 10*3/uL Normal 138-453 [facility] Comment on above: Performed By: #### V D25, GLU, CBC, ALB, PT, PTT, ALCB, BUN, CREG, GLYHGB, FT4, TROPI, TSHX, LYTE #### [place] [id number] Rag Collector: Paul Hodge MD RBC (Bld) [#/Vol] 4.01 10*6/uL Low 4.21-5.77 [facility] Comment on above: Performed By: #### V D25, GLU, CBC, ALB, PT, PTT, ALCB, BUN, CREG, GLYHGB, FT4, TROPI, TSHX, LYTE #### [place] [id number] Rag Collector: Paul Hodge MD WBC (Bld) [#/Vol] 15.2 10*3/uL High 3.5-11.3 [facility] Comment on above: Performed By: #### V D25, GLU, CBC, ALB, PT, PTT, ALCB, BUN, CREG, GLYHGB, FT4, TROPI, TSHX, LYTE #### [address] [address] Rag Collector: Paul Hodge MD Basic Metabolic Profon 01-17 Anion gap [Moles/Vol] 12 mmol/L Normal 9-17 [facility] Comment on above: Performed By: #### V D25, GLU, CBC, ALB, PT, PTT, ALCB, BUN, CREG, GLYHGB, FT4, TROPI, TSHX, LYTE #### [address] [address] Rag Collector: Paul Hodge MD Calcium [Mass/Vol] 8.8 mg/dL Normal 8.6-10.4 [facility] Comment on above: Performed By: #### V D25, GLU, CBC, ALB, PT, PTT, ALCB, BUN, CREG, GLYHGB, FT4, TROPI, TSHX, LYTE #### [address] [id number] Rag Collector: Paul Hodge MD Chloride [Moles/Vol] 103 mmol/L Normal 98-107 [facility] Comment on above: Performed By: #### V D25, GLU, CBC, ALB, PT, PTT, ALCB, BUN, CREG, GLYHGB, FT4, TROPI, TSHX, LYTE #### [address] [id number] Rag Collector: Paul Hodge MD CO2 [Moles/Vol] 21 mmol/L Normal 20-31 [facility] Comment on above: Performed By: #### V D25, GLU, CBC, ALB, PT, PTT, ALCB, BUN, CREG, GLYHGB, FT4, TROPI, TSHX, LYTE #### [address] [address] Rag Collector: Paul Hodge MD Creatinine [Mass/Vol] 0.7 mg/dL Normal 0.7-1.2 [facility] Comment on above: Performed By: #### V D25, GLU, CBC, ALB, PT, PTT, ALCB, BUN, CREG, GLYHGB, FT4, TROPI, TSHX, LYTE #### [address] [address] Rag Collector: Paul Hodge MD GFR/1.73 sq M.predicted among non-blacks MDRD (S/P/Bld) [Vol rate/Area] mL/min/{1.73_m2} Normal >60 [facility] Comment on above: Result Comment: These results are not intended for use in patients <18 years of age. eGFR results are calculated without a race factor using the 2020 CKD-EPI equation. Careful clinical correlation is recommended, particularly when comparing to results calculated using previous equations. The CKD-EPI equation is less accurate in patients with extremes of muscle mass, extra-renal metabolism of creatine, excessive creatine ingestion, or following therapy that affects renal tubular secretion. Performed By: #### V D25, GLU, CBC, ALB, PT, PTT, ALCB, BUN, CREG, GLYHGB, FT4, TROPI, TSHX, LYTE #### [address] [address] Rag Collector: Paul Hodge MD Glucose [Mass/Vol] 158 mg/dL High 70-99 [facility] Comment on above: Performed By: #### V D25, GLU, CBC, ALB, PT, PTT, ALCB, BUN, CREG, GLYHGB, FT4, TROPI, TSHX, LYTE #### [address] [address] Rag Collector: Paul Hodge MD Potassium [Moles/Vol] 4.2 mmol/L Normal 3.7-5.3 [facility] Comment on above: Performed By: #### V D25, GLU, CBC, ALB, PT, PTT, ALCB, BUN, CREG, GLYHGB, FT4, TROPI, TSHX, LYTE #### [address] [id number] Rag Collector: Paul Hodge MD Sodium [Moles/Vol] 136 mmol/L Normal 135-144 [facility] Comment on above: Performed By: #### V D25, GLU, CBC, ALB, PT, PTT, ALCB, BUN, CREG, GLYHGB, FT4, TROPI, TSHX, LYTE #### [address] [id number] Rag Collector: Paul Hodge MD Urea nitrogen [Mass/Vol] 18 mg/dL Normal 8-23 [facility] Comment on above: Performed By: #### Louise D25, GLU, CBC, ALB, PT, PTT, ALCB, BUN, CREG, GLYHGB, FT4, TROPI, TSHX, LYTE #### [address] [id number] Rag Collector: Paul Hodge MD Anion gap [Moles/Vol] 11 mmol/L Normal 9-17 [facility] Comment on above: Performed By: #### V D25, GLU, CBC, ALB, PT, PTT, ALCB, BUN, CREG, GLYHGB, FT4, TROPI, TSHX, LYTE #### [address] [id number] Rag Collector: Paul Hodge MD Calcium [Mass/Vol] 8.9 mg/dL Normal 8.6-10.4 [facility] Comment on above: Performed By: #### V D25, GLU, CBC, ALB, PT, PTT, ALCB, BUN, CREG, GLYHGB, FT4, TROPI, TSHX, LYTE #### [address] [id number] Rag Collector: Paul Hodge MD Chloride [Moles/Vol] 107 mmol/L Normal 98-107 [facility] Comment on above: Performed By: #### V D25, GLU, CBC, ALB, PT, PTT, ALCB, BUN, CREG, GLYHGB, FT4, TROPI, TSHX, LYTE #### [address] [address] Rag Collector: Paul Hodge MD CO2 [Moles/Vol] 20 mmol/L Normal 20-31 [facility] Comment on above: Performed By: #### V D25, GLU, CBC, ALB, PT, PTT, ALCB, BUN, CREG, GLYHGB, FT4, TROPI, TSHX, LYTE #### [address] [address] Rag Collector: Paul Hodge MD Creatinine [Mass/Vol] 0.7 mg/dL Normal 0.7-1.2 [facility] Comment on above: Performed By: #### V D25, GLU, CBC, ALB, PT, PTT, ALCB, BUN, CREG, GLYHGB, FT4, TROPI, TSHX, LYTE #### [address] [address] Rag Collector: Paul Hodge MD GFR/1.73 sq M.predicted among non-blacks MDRD (S/P/Bld) [Vol rate/Area] mL/min/{1.73_m2} Normal >60 [facility] Comment on above: Result Comment: These results are not intended for use in patients <18 years of age. eGFR results are calculated without a race factor using the 2020 CKD-EPI equation. Careful clinical correlation is recommended, particularly when comparing to results calculated using previous equations. The CKD-EPI equation is less accurate in patients with extremes of muscle mass, extra-renal metabolism of creatine, excessive creatine ingestion, or following therapy that affects renal tubular secretion. Performed By: #### V D25, GLU, CBC, ALB, PT, PTT, ALCB, BUN, CREG, GLYHGB, FT4, TROPI, TSHX, LYTE #### [address] [id number] Rag Collector: Paul Hodge MD Glucose [Mass/Vol] 119 mg/dL High 70-99 [facility] Comment on above: Performed By: #### V D25, GLU, CBC, ALB, PT, PTT, ALCB, BUN, CREG, GLYHGB, FT4, TROPI, TSHX, LYTE #### [address] [id number] Rag Collector: Paul Hodge MD Potassium [Moles/Vol] 4.4 mmol/L Normal 3.7-5.3 [facility] Comment on above: Performed By: #### Louise D25, GLU, CBC, ALB, PT, PTT, ALCB, BUN, CREG, GLYHGB, FT4, TROPI, TSHX, LYTE #### [address] [address] Rag Collector: Paul Hodge MD Sodium [Moles/Vol] 138 mmol/L Normal 135-144 [facility] Comment on above: Performed By: #### V D25, GLU, CBC, ALB, PT, PTT, ALCB, BUN, CREG, GLYHGB, FT4, TROPI, TSHX, LYTE #### [address] [id number] Rag Collector: Paul Hodge MD Urea nitrogen [Mass/Vol] 23 mg/dL Normal 8-23 [facility] Comment on above: Performed By: #### V D25, GLU, CBC, ALB, PT, PTT, ALCB, BUN, CREG, GLYHGB, FT4, TROPI, TSHX, LYTE #### [address] [id number] Rag Collector: Paul Hodge MD CBCon 01-17-2023 Erythrocyte distribution width (RBC) [Ratio] 13.7 % Normal 11.8-14.4 [facility] Comment on above: Performed By: #### V D25, GLU, CBC, ALB, PT, PTT, ALCB, BUN, CREG, GLYHGB, FT4, TROPI, TSHX, LYTE #### [address] [address] Rag Collector: Paul Hodge MD Hematocrit (Bld) [Volume fraction] 40.1 % Low 40.7-50.3 [facility] Comment on above: Performed By: #### V D25, GLU, CBC, ALB, PT, PTT, ALCB, BUN, CREG, GLYHGB, FT4, TROPI, TSHX, LYTE #### [address] [address] Rag Collector: Paul Hodge MD Hemoglobin (Bld) [Mass/Vol] 12.8 g/dL Low 13.0-17.0 [facility] Comment on above: Performed By: #### V D25, GLU, CBC, ALB, PT, PTT, ALCB, BUN, CREG, GLYHGB, FT4, TROPI, TSHX, LYTE #### [address] [address] Rag Collector: Paul Hodge MD MCH (RBC) [Entitic mass] 29.9 pg Normal 25.2-33.5 [facility] Comment on above: Performed By: #### V D25, GLU, CBC, ALB, PT, PTT, ALCB, BUN, CREG, GLYHGB, FT4, TROPI, TSHX, LYTE #### [address] [address] Rag Collector: Paul Hodge MD MCHC (RBC) [Mass/Vol] 31.9 g/dL Normal 28.4-34.8 [facility] Comment on above: Performed By: #### V D25, GLU, CBC, ALB, PT, PTT, ALCB, BUN, CREG, GLYHGB, FT4, TROPI, TSHX, LYTE #### [address] [id number] Rag Collector: Paul Hodge MD MCV (RBC) [Entitic vol] 93.7 fL Normal 82.6-102.9 [facility] Comment on above: Performed By: #### V D25, GLU, CBC, ALB, PT, PTT, ALCB, BUN, CREG, GLYHGB, FT4, TROPI, TSHX, LYTE #### [address] [id number] Rag Collector: Paul Hodge MD NRBC Automated 0.0 per 100 WBC Normal 0.0 [facility] Comment on above: Performed By: #### V D25, GLU, CBC, ALB, PT, PTT, ALCB, BUN, CREG, GLYHGB, FT4, TROPI, TSHX, LYTE #### [address] [id number] Rag Collector: Paul Hodge MD Platelet mean volume (Bld) [Entitic vol] 11.4 fL Normal 8.1-13.5 [facility] Comment on above: Performed By: #### V D25, GLU, CBC, ALB, PT, PTT, ALCB, BUN, CREG, GLYHGB, FT4, TROPI, TSHX, LYTE #### [place] [id number] Rag Collector: Paul Hodge MD Platelets (Bld) [#/Vol] 175 10*3/uL Normal 138-453 [facility] Comment on above: Performed By: #### V D25, GLU, CBC, ALB, PT, PTT, ALCB, BUN, CREG, GLYHGB, FT4, TROPI, TSHX, LYTE #### [address] [id number] Rag Collector: Paul Hodge MD RBC (Bld) [#/Vol] 4.28 10*6/uL Normal 4.21-5.77 [facility] Comment on above: Performed By: #### V D25, GLU, CBC, ALB, PT, PTT, ALCB, BUN, CREG, GLYHGB, FT4, TROPI, TSHX, LYTE #### [place] [id number] Rag Collector: Paul Hodge MD WBC (Bld) [#/Vol] 15.7 10*3/uL High 3.5-11.3 [facility] Comment on above: Performed By: #### Louise D25, GLU, CBC, ALB, PT, PTT, ALCB, BUN, CREG, GLYHGB, FT4, TROPI, TSHX, LYTE #### [place] [id number] Rag Collector: Paul Hodge MD CBC with Diffon 01-17-2023 Abs. Basophil 0.04 k/uL Normal 0.00-0.20 [facility] Comment on above: Performed By: #### Louise D25, GLU, CBC, ALB, PT, PTT, ALCB, BUN, CREG, GLYHGB, FT4, TROPI, TSHX, LYTE #### [place] [id number] Rag Collector: Paul Hodge MD Abs.Imm.Granulocyte 0.07 k/uL Normal 0.00-0.30 [facility] Comment on above: Performed By: #### Louise D25, GLU, CBC, ALB, PT, PTT, ALCB, BUN, CREG, GLYHGB, FT4, TROPI, TSHX, LYTE #### [place] [id number] Rag Collector: Paul Hodeg MD Abs.Neutrophil (Seg) 6.68 k/uL Normal 1.50-8.10 [facility] Comment on above: Performed By: #### V D25, GLU, CBC, ALB, PT, PTT, ALCB, BUN, CREG, GLYHGB, FT4, TROPI, TSHX, LYTE #### [address] [address] Rag Collector: Paul Hodge MD Basophils/100 WBC (Bld) 0 % Normal 0-2 [facility] Comment on above: Performed By: #### V D25, GLU, CBC, ALB, PT, PTT, ALCB, BUN, CREG, GLYHGB, FT4, TROPI, TSHX, LYTE #### [address] [address] Rag Collector: Paul Hodge MD Eosinophils (Bld) [#/Vol] 0.30 10*3/uL Normal 0.00-0.44 [facility] Comment on above: Performed By: #### V D25, GLU, CBC, ALB, PT, PTT, ALCB, BUN, CREG, GLYHGB, FT4, TROPI, TSHX, LYTE #### [address] [address] Rag Collector: Paul Hodge MD Eosinophils/100 WBC (Bld) 3 % Normal 1-4 [facility] Comment on above: Performed By: #### V D25, GLU, CBC, ALB, PT, PTT, ALCB, BUN, CREG, GLYHGB, FT4, TROPI, TSHX, LYTE #### [address] [address] Rag Collector: Paul Hodge MD Erythrocyte distribution width (RBC) [Ratio] 14.0 % Normal 11.8-14.4 [facility] Comment on above: Performed By: #### V D25, GLU, CBC, ALB, PT, PTT, ALCB, BUN, CREG, GLYHGB, FT4, TROPI, TSHX, LYTE #### [address] [address] Rag Collector: Paul Hodge MD Hematocrit (Bld) [Volume fraction] 38.5 % Low 40.7-50.3 [facility] Comment on above: Performed By: #### V D25, GLU, CBC, ALB, PT, PTT, ALCB, BUN, CREG, GLYHGB, FT4, TROPI, TSHX, LYTE #### [place] [id number] Rag Collector: Paul Hodge MD Hemoglobin (Bld) [Mass/Vol] 12.1 g/dL Low 13.0-17.0 [facility] Comment on above: Performed By: #### Louise D25, GLU, CBC, ALB, PT, PTT, ALCB, BUN, CREG, GLYHGB, FT4, TROPI, TSHX, LYTE #### [place] [id number] Rag Collector: Paul Hodge MD Immature granulocytes/100 WBC (Bld) 1 % High 0 [facility] Comment on above: Performed By: #### Louise D25, GLU, CBC, ALB, PT, PTT, ALCB, BUN, CREG, GLYHGB, FT4, TROPI, TSHX, LYTE #### [place] [id number] Rag Collector: Paul Hodge MD Lymphocytes (Bld) [#/Vol] 1.08 10*3/uL Low 1.10-3.70 [facility] Comment on above: Performed By: #### V D25, GLU, CBC, ALB, PT, PTT, ALCB, BUN, CREG, GLYHGB, FT4, TROPI, TSHX, LYTE #### [place] [id number] Rag Collector: Paul Hodge MD Lymphocytes/100 WBC (Bld) 11 % Low 24-43 [facility] Comment on above: Performed By: #### V D25, GLU, CBC, ALB, PT, PTT, ALCB, BUN, CREG, GLYHGB, FT4, TROPI, TSHX, LYTE #### [address] [address] Rag Collector: Paul Hodge MD MCH (RBC) [Entitic mass] 29.8 pg Normal 25.2-33.5 [facility] Comment on above: Performed By: #### V D25, GLU, CBC, ALB, PT, PTT, ALCB, BUN, CREG, GLYHGB, FT4, TROPI, TSHX, LYTE #### [address] [address] Rag Collector: Paul Hodge MD MCHC (RBC) [Mass/Vol] 31.4 g/dL Normal 28.4-34.8 [facility] Comment on above: Performed By: #### V D25, GLU, CBC, ALB, PT, PTT, ALCB, BUN, CREG, GLYHGB, FT4, TROPI, TSHX, LYTE #### [address] [address] Rag Collector: Paul Hodge MD MCV (RBC) [Entitic vol] 94.8 fL Normal 82.6-102.9 [facility] Comment on above: Performed By: #### V D25, GLU, CBC, ALB, PT, PTT, ALCB, BUN, CREG, GLYHGB, FT4, TROPI, TSHX, LYTE #### [address] [address] Rag Collector: Paul Hodge MD Monocytes (Bld) [#/Vol] 1.38 10*3/uL High 0.10-1.20 [facility] Comment on above: Performed By: #### V D25, GLU, CBC, ALB, PT, PTT, ALCB, BUN, CREG, GLYHGB, FT4, TROPI, TSHX, LYTE #### [address] [id number] Rag Collector: Paul Hodge MD Monocytes/100 WBC (Bld) 15 % High 3-12 [facility] Comment on above: Performed By: #### V D25, GLU, CBC, ALB, PT, PTT, ALCB, BUN, CREG, GLYHGB, FT4, TROPI, TSHX, LYTE #### [address] [id number] Rag Collector: Paul Hodge MD Neutrophil (Seg) 70 % High 36-65 [facility] Comment on above: Performed By: #### V D25, GLU, CBC, ALB, PT, PTT, ALCB, BUN, CREG, GLYHGB, FT4, TROPI, TSHX, LYTE #### [address] [id number] Rag Collector: Paul Hodge MD NRBC Automated 0.0 per 100 WBC Normal 0.0 [facility] Comment on above: Performed By: #### V D25, GLU, CBC, ALB, PT, PTT, ALCB, BUN, CREG, GLYHGB, FT4, TROPI, TSHX, LYTE #### [address] [id number] Rag Collector: Paul Hodge MD Platelet mean volume (Bld) [Entitic vol] 12.0 fL Normal 8.1-13.5 [facility] Comment on above: Performed By: #### V D25, GLU, CBC, ALB, PT, PTT, ALCB, BUN, CREG, GLYHGB, FT4, TROPI, TSHX, LYTE #### [address] [id number] Rag Collector: Paul Hodge MD Platelets (Bld) [#/Vol] 187 10*3/uL Normal 138-453 [facility] Comment on above: Performed By: #### V D25, GLU, CBC, ALB, PT, PTT, ALCB, BUN, CREG, GLYHGB, FT4, TROPI, TSHX, LYTE #### [address] [address] Rag Collector: Paul Hodge MD RBC (Bld) [#/Vol] 4.06 10*6/uL Low 4.21-5.77 [facility] Comment on above: Performed By: #### V D25, GLU, CBC, ALB, PT, PTT, ALCB, BUN, CREG, GLYHGB, FT4, TROPI, TSHX, LYTE #### [address] [address] Rag Collector: Paul Hodge MD WBC (Bld) [#/Vol] 9.6 10*3/uL Normal 3.5-11.3 [facility] Comment on above: Performed By: #### V D25, GLU, CBC, ALB, PT, PTT, ALCB, BUN, CREG, GLYHGB, FT4, TROPI, TSHX, LYTE #### [address] [address] Rag Collector: Paul Hodge MD Calcium, Ionicon 01-17-2023 Calcium [Moles/Vol] 1.11 mmol/L Low 1.13-1.33 [facility] Comment on above: Performed By: #### V D25, GLU, CBC, ALB, PT, PTT, ALCB, BUN, CREG, GLYHGB, FT4, TROPI, TSHX, LYTE #### [address] [address] Rag Collector: Paul Hodge MD FLUORO FOR SURGICAL PROCEDUR ESon 01-17-2023 FLUORO FOR SURGICAL PROCEDURES Radiology exam is complete. No Radiologist dictation. Please follow up with ordering provider. Final result Normal [facility] Magnesiumon 01-17-2023 Magnesium [Mass/Vol] 2.3 mg/dL Normal 1.6-2.6 [facility] Comment on above: Performed By: #### V D25, GLU, CBC, ALB, PT, PTT, ALCB, BUN, CREG, GLYHGB, FT4, TROPI, TSHX, LYTE #### [facility] [address] [place], [place] [id number] Rag Collector: Paul Hodge MD Phosphorus, Inorg.on 023 Phosphorus, Inorg. 4.2 mg/dL Normal 2.5-4.5 [facility] Comment on above: Performed By: #### V D25, GLU, CBC, ALB, PT, PTT, ALCB, BUN, CREG, GLYHGB, FT4, TROPI, TSHX, LYTE #### [facility] [address] [place] [address] Rag Collector: Paul Hodge MD XR FEMUR RIGHT (MIN 2 VIEWS) on 01-17-2023 XR FEMUR RIGHT (MIN 2 VIEWS) EXAMINATION: 5 XRAY VIEWS OF THE RIGHT FEMUR 01/17/2023 6:50 pm COMPARISON: January 16, 2023 HISTORY: ORDERING SYSTEM PROVIDED HISTORY: s/p IMN TECHNOLOGIST PROVIDED HISTORY: Patient in PACU s/p IMN FINDINGS: Interval placement of an intramedullary chris in the right femur. Threaded screws extend through the inter trochanteric region of the right femur into the right femoral head. Additional threaded screws involving the distal femur. Transverse fracture in the mid diaphysis of the femur which is in normal anatomic alignment. Knee arthroplasty. Soft tissue emphysema in the right thigh. IMPRESSION: Postsurgical change. No complication. Interpreted by: Matteo Milian MD Signed by: Matteo Milian MD 01/17/23 Final result Normal [facility] ABO/Rhon 01-16-2023 ABO/Rh Positive Invalid Interpretation Code [facility] Comment on above: Performed By: #### 2 [id number] #### [facility] [address] [place] [address] ABO/Rh History Checkon 01-16 ABO/Rh History Check Verified Hx Blood Type Normal [facility] Comment on above: Performed By: #### 2 [id number] #### [facility] [address] [place] [address] ABSCon 01-16-2023 ABSC Gel Interp Negative Normal [facility] Comment on above: Performed By: #### 2 [id number] #### [facility] [address] [place] [address] APTTon 01-16-2023 aPTT Coag (Bld) [Time] 27.7 s Normal 23.0-36.5 [facility] Comment on above: Result Comment: IV Heparin Therapy Range: 66.0-92.0 sec Performed By: #### V D25, GLU, CBC, ALB, PT, PTT, ALCB, BUN, CREG, GLYHGB, FT4, TROPI, TSHX, LYTE #### [address] [address] Rag Collector: Paul Hodge MD Albuminon 01-16-2023 Albumin [Mass/Vol] 3.7 g/dL Normal 3.5-5.2 [facility] Comment on above: Performed By: #### V D25, GLU, CBC, ALB, PT, PTT, ALCB, BUN, CREG, GLYHGB, FT4, TROPI, TSHX, LYTE #### [address] [address] Rag Collector: Paul Hodge MD Auto Diffon 01-16-2023 Basophils/100 WBC (Bld) 0.7 % Normal 0.0-2.0 [facility] Comment on above: Order Comment: Order Added by Discern Expert. Performed By: #### 1 [id number], 9550671, 5868255, 3728967, 7305508, 7147022, 4785507, 45350704, 7438244 ####[facility] [address] [place] [address] Basophils/Leukocytes Auto (Bld) [Pure # fraction] 0.1 E9/L Normal 0.0-0.2 [facility] Comment on above: Order Comment: Order Added by Discern Expert. Performed By: #### 1 0252047, 7847461, 7105264, 9185648, 7248773, 4937679, 4192039, 86783337, 1785285 ####[facility] [address] [place] [address] Eosinophils/100 WBC (Bld) 5.9 % Normal 0.0-8.0 [facility] Comment on above: Order Comment: Order Added by Discern Expert. Performed By: #### 1 8242531, 0885303, 2124568, 1612874, 7498061, 6409336, 8836840, 92955598, 9574023 ####[place] [address] [place] [address] Eosinophils/Leukocytes Auto (Bld) [Pure # fraction] 0.6 E9/L High 0.0-0.5 [facility] Comment on above: Order Comment: Order Added by Discern Expert. Performed By: #### 1 0772266, 0982221, 6749101, 4985742, 5129899, 1605356, 7593257, 91671197, 8297576 ####[address] [address] Lymphocytes/100 WBC (Bld) 13.7 % Low 14.0-50.0 [facility] Comment on above: Order Comment: Order Added by Anjel Expert. Performed By: #### 1 1461039, 5559474, 9483477, 7534949, 0332506, 8596183, 8654490, 77319448, 4205986 ####[place] [address] [place] [address] Lymphocytes/Leukocytes Auto (Bld) [Pure # fraction] 1.3 E9/L Normal 1.0-4.0 [facility] Comment on above: Order Comment: Order Added by Anjel Expert. Performed By: #### 1 5361600, 7325563, 0136007, 9293507, 0551416, 3495590, 1798304, 17896239, 6100765 ####[place] [address] [place] [address] Monocytes/100 WBC (Bld) 10.7 % Normal 4.0-14.0 [facility] Comment on above: Order Comment: Order Added by Discern Expert. Performed By: #### 1 0650268, 1886662, 6346369, 9699914, 9661978, 1485370, 9376410, 48834148, 4142468 ####[place] [address] [place] [address] Monocytes/Leukocytes Auto (Bld) [Pure # fraction] 1.0 E9/L Normal 0.2-1.0 [facility] Comment on above: Order Comment: Order Added by Discern Expert. Performed By: #### 1 3573409, 0910565, 6142230, 5444529, 3860545, 5175588, 5959367, 62308052, 3876125 ####[address] [address] Neutrophils/100 WBC (Bld) 69.0 % Normal 36.0-75.0 [facility] Comment on above: Order Comment: Order Added by Discern Expert. Performed By: #### 1 3293005, 8985036, 7277761, 5734641, 2888186, 8173063, 9093085, 94178701, 8339507 ####[place] [address] [place] [address] Neutrophils/Leukocytes Auto (Bld) [Pure # fraction] 6.5 E9/L Normal 2.0-7.5 [facility] Comment on above: Order Comment: Order Added by Discern Expert. Performed By: #### 1 1799017, 3812372, 6843875, 3319053, 4030955, 8922143, 1641501, 06184691, 4726196 ####[facility] [address] [place] [address] BMPon 01-16-2023 Creatinine [Mass/Vol] 0.8 mg/dL Normal 0.5-1.3 [facility] Comment on above: Performed By: #### 1 3179641, 5869561, 2552398, 1184278, 4373640, 7840471, 9881717, 77280422, 8792523 ####[facility] [address] [place] [address] Urea nitrogen [Mass/Vol] 20 mg/dL Normal 5-21 [facility] Comment on above: Performed By: #### 1 1916530, 9304732, 2825730, 4123018, 9170851, 3469908, 9698123, 99223050, 1805102 ####[facility] [address] [place] [address] Urea nitrogen/Creatinine [Mass ratio] 25 No Units High 10-20 [facility] Comment on above: Performed By: #### 1 7697433, 8293726, 4812052, 1027452, 8437806, 1875222, 1496238, 53850634, 3858450 ####[facility] [address] [place] [address] Anion gap [Moles/Vol] 13 mmol/L Normal 6-16 [facility] Comment on above: Performed By: #### 1 8049645, 1080602, 4769391, 2692592, 9894807, 6384314, 7129657, 60534936, 9107968 ####[facility] [address] [place] [address] Calcium [Mass/Vol] 9.0 mg/dL Normal 8.9-11.1 [facility] Comment on above: Performed By: #### 1 2366915, 0792960, 0429646, 1022093, 0442707, 7634403, 9408146, 23885868, 5936411 ####[facility] [address] [place] [address] Chloride [Moles/Vol] 104 mmol/L Normal 101-111 [facility] Comment on above: Performed By: #### 1 2362529, 4871766, 8572877, 2369196, 1214996, 4066725, 4507213, 61472385, 6585874 ####[facility] [address] [place] [address] CO2 [Moles/Vol] 23 mmol/L Normal 21-31 [facility] Comment on above: Performed By: #### 1 6753459, 0185439, 2035705, 9863096, 7796139, 0040681, 7614735, 32569317, 0684223 ####[facility] [address] [place] [address] Glucose [Mass/Vol] 138 mg/dL Normal 55-199 [facility] Comment on above: Result Comment: If t his glucose result represents a fasting glucose, interpretation should refer to the following reference range: 55-99 mg/dL Performed By: #### 1 0140008, 3858541, 1292348, 7463944, 7994379, 5904674, 9950855, 90133985, 6051998 ####[facility] [address] [place] [address] Potassium [Moles/Vol] 4.1 mmol/L Normal 3.5-5.3 [facility] Comment on above: Performed By: #### 1 6922163, 7605235, 5423240, 3359012, 2587800, 8346320, 8273241, 92562126, 3344864 ####[facility] [address] [place] [address] Sodium [Moles/Vol] 136 mmol/L Normal 135-145 [facility] Comment on above: Performed By: #### 1 7045577, 2136371, 3294721, 4732561, 8195640, 6331550, 7820565, 88066857, 6795212 ####[facility] [address] [place] [address] BUN (Urea N)on 01-16-2023 Urea nitrogen [Mass/Vol] 16 mg/dL Normal 8-23 [facility] Comment on above: Performed By: #### V D25, GLU, CBC, ALB, PT, PTT, ALCB, BUN, CREG, GLYHGB, FT4, TROPI, TSHX, LYTE #### [facility] [address] [place] [address] Rag Collector: Paul Hodge MD Blood Bank ID#on 01-16-2023 BBID# [id number] Invalid Interpretation Code [facility] Comment on above: Performed By: #### 2 [id number] #### [facility] [address] [place] [address] CBCon 01-16-2023 Erythrocyte distribution width (RBC) [Ratio] 13.8 % Normal 11.8-14.4 [facility] Comment on above: Performed By: #### V D25, GLU, CBC, ALB, PT, PTT, ALCB, BUN, CREG, GLYHGB, FT4, TROPI, TSHX, LYTE #### [address] [address] Rag Collector: Paul Hodge MD Hematocrit (Bld) [Volume fraction] 44.6 % Normal 40.7-50.3 [facility] Comment on above: Performed By: #### V D25, GLU, CBC, ALB, PT, PTT, ALCB, BUN, CREG, GLYHGB, FT4, TROPI, TSHX, LYTE #### [address] [address] Rag Collector: Paul Hodge MD Hemoglobin (Bld) [Mass/Vol] 14.5 g/dL Normal 13.0-17.0 [facility] Comment on above: Performed By: #### V D25, GLU, CBC, ALB, PT, PTT, ALCB, BUN, CREG, GLYHGB, FT4, TROPI, TSHX, LYTE #### [address] [address] Rag Collector: Paul Hodge MD MCH (RBC) [Entitic mass] 29.9 pg Normal 25.2-33.5 [facility] Comment on above: Performed By: #### V D25, GLU, CBC, ALB, PT, PTT, ALCB, BUN, CREG, GLYHGB, FT4, TROPI, TSHX, LYTE #### [address] [address] Rag Collector: Paul Hodge MD MCHC (RBC) [Mass/Vol] 32.5 g/dL Normal 28.4-34.8 [facility] Comment on above: Performed By: #### V D25, GLU, CBC, ALB, PT, PTT, ALCB, BUN, CREG, GLYHGB, FT4, TROPI, TSHX, LYTE #### [address] [address] Rag Collector: Paul Hodge MD MCV (RBC) [Entitic vol] 92.0 fL Normal 82.6-102.9 [facility] Comment on above: Performed By: #### V D25, GLU, CBC, ALB, PT, PTT, ALCB, BUN, CREG, GLYHGB, FT4, TROPI, TSHX, LYTE #### [address] [address] Rag Collector: Paul Hodge MD NRBC Automated 0.0 per 100 WBC Normal 0.0 [facility] Comment on above: Performed By: #### V D25, GLU, CBC, ALB, PT, PTT, ALCB, BUN, CREG, GLYHGB, FT4, TROPI, TSHX, LYTE #### [place] [id number] Rag Collector: Paul Hodge MD Platelet mean volume (Bld) [Entitic vol] 12.6 fL Normal 8.1-13.5 [facility] Comment on above: Performed By: #### V D25, GLU, CBC, ALB, PT, PTT, ALCB, BUN, CREG, GLYHGB, FT4, TROPI, TSHX, LYTE #### [place] [id number] Rag Collector: Paul Hodge MD Platelets (Bld) [#/Vol] 206 10*3/uL Normal 138-453 [facility] Comment on above: Performed By: #### V D25, GLU, CBC, ALB, PT, PTT, ALCB, BUN, CREG, GLYHGB, FT4, TROPI, TSHX, LYTE #### [address] [id number] Rag Collector: Paul Hodge MD RBC (Bld) [#/Vol] 4.85 10*6/uL Normal 4.21-5.77 [facility] Comment on above: Performed By: #### V D25, GLU, CBC, ALB, PT, PTT, ALCB, BUN, CREG, GLYHGB, FT4, TROPI, TSHX, LYTE #### [place] [id number] Rag Collector: Paul Hodge MD WBC (Bld) [#/Vol] 16.3 10*3/uL High 3.5-11.3 [facility] Comment on above: Performed By: #### V D25, GLU, CBC, ALB, PT, PTT, ALCB, BUN, CREG, GLYHGB, FT4, TROPI, TSHX, LYTE #### [address] [id number] Rag Collector: Paul Hodge MD CBC w/ Auto Diffon 3 Erythrocyte distribution width (RBC) [Ratio] 14.3 % High 10.9-14.2 [facility] Comment on above: Performed By: #### 1 3857458, 9289513, 2197089, 9115512, 4181763, 4650884, 7718462, 01375165, 0988294 ####[facility] [address] [place] [address] Hematocrit (Bld) [Volume fraction] 42.4 % Normal 37.7-49.0 [facility] Comment on above: Performed By: #### 1 7026859, 2805021, 3216130, 3725999, 3447519, 2910103, 5371917, 01913284, 9497754 ####[facility] [address] [place] [address] Hemoglobin (Bld) [Mass/Vol] 13.9 g/dL Normal 13.5-17.5 [facility] Comment on above: Performed By: #### 1 1058531, 4815849, 7924893, 5894816, 2228317, 0051919, 7046568, 20929837, 3078524 ####[place] [address] MCH (RBC) [Entitic mass] 29.6 pg Normal 27.0-34.0 [facility] Comment on above: Performed By: #### 1 7590207, 1241408, 5338820, 3636561, 2335717, 3895064, 3820741, 43356949, 7416741 ####[place] [address] MCHC (RBC) [Mass/Vol] 32.8 g/dL Normal 31.4-36.0 [facility] Comment on above: Performed By: #### 1 2025088, 3310210, 1587446, 2529250, 3534434, 8981420, 2308797, 94451665, 1657672 ####[place] [address] MCV (RBC) [Entitic vol] 90.3 fL Normal 80.0-100.0 [facility] Comment on above: Performed By: #### 1 0328184, 3304138, 9181614, 1136889, 1545814, 8232844, 3431330, 59280239, 4026960 ####[address] [address] Platelet mean volume (Bld) [Entitic vol] 10.1 fL Normal 6.4-10.8 [facility] Comment on above: Performed By: #### 1 9120279, 9607514, 3205777, 5422317, 0664477, 9842845, 6031785, 29503709, 3140128 ####[facility] [address] [place] [address] Platelets (Bld) [#/Vol] 197.0 E9/L Normal 150.0-500.0 [facility] Comment on above: Performed By: #### 1 0327162, 4299845, 5518641, 7116061, 6338195, 2973002, 8386457, 59289591, 0456690 ####[facility] [address] [place] [address] RBC (Bld) [#/Vol] 4.7 E12/L Normal 4.3-5.9 [facility] Comment on above: Performed By: #### 1 6245838, 2823270, 6567294, 3121571, 9855191, 3439260, 8395984, 47450270, 0214461 ####[facility] [address] [place] [address] WBC corrected for nucl RBC Auto (Bld) [#/Vol] 9.4 E9/L Normal 4.0-11.0 [facility] Comment on above: Performed By: #### 1 4172985, 7369643, 8277085, 9468828, 6013400, 7254073, 7251055, 44895486, 4985691 ####[address] [place] [address] CT CHEST ABDOMEN PELVIS W CO NTRASTon 01-16-2023 CT CHEST ABDOMEN PELVIS W CONTRAST EXAMINATION: CT OF THE CHEST, ABDOMEN, AND PELVIS WITH CONTRAST 01/16/2023 5:20 pm TECHNIQUE: CT of the chest, abdomen and pelvis was performed with the administration of intravenous contrast. Multiplanar reformatted images are provided for review. Automated exposure control, iterative reconstruction, and/or weight based adjustment of the mA/kV was utilized to reduce the radiation dose to as low as reasonably achievable. COMPARISON: None HISTORY: ORDERING SYSTEM PROVIDED HISTORY: fall TECHNOLOGIST PROVIDED HISTORY: fall Decision Support Exception - unselect if not a suspected or confirmed emergency medical condition->Emergency Medical Condition (MA) FINDINGS: Chest: Lower neck: Unremarkable Chest wall: Unremarkable Lymph nodes: No lymphadenopathy in the chest. Calcified mediastinal lymph nodes compatible with prior granulomatous disease. Heart: The heart is not enlarged. Multivessel coronary artery calcifications. No pericardial effusion or focal thickening. Thoracic aorta: No aneurysm Esophagus: Unremarkable Lung parenchyma/Pleura: Bibasilar atelectasis. The lungs are clear of focal consolidation.No pleural effusion or pneumothorax. Central airways: Patent. Soft tissues: ?Unremarkable. Bones: ?Unremarkable. Abdomen/Pelvis: Liver: ?Normal size and contour. Diffuse fatty infiltration. Gallbladder/biliary tree: No radiopaque stones. No biliary dilatation. ?Adrenal glands: ?Unremarkable Spleen: ?Unremarkable Pancreas: ?unremarkable Kidneys: Normal bilateral symmetric enhancement without focal lesion. No hydronephrosis. Bowel: ?Normal in caliber. No obstruction or abnormal wall thickening. Moderate amount of retained stool in the proximal ascending colon and proximal sigmoid colon suggesting constipation. Appendix is normal in caliber. ?Lymph Nodes: ?No enlarged adenopathy Bladder: ?Unremarkable Pelvis: No pelvic masses. Normal size prostate with prostatic seeds. Peritoneum/retroperitoneum : ? No ascites or free air. No fluid collections. ?Abdominal aorta: ?Normal in caliber without aneurysm or dissection. Abdominal wall: ?Small fat containing bilateral inguinal hernias. ? Bones/soft tissues: Spondylosis in the visualized spine. No acute bony abnormality. Left hip prosthesis is in place. IMPRESSION: No acute abnormality or traumatic findings identified in the chest, abdomen pelvis. Interpreted by: Obinna Luis MD Signed by: Obinna Luis MD 01/16/23 Final result Normal [facility] CT Head or Brain w/o Contras ton 01-16-2023 CT Head or Brain w/o Contrast Exam Date/Time: 01/16/2023 10:07 EST Reason for Exam: HEAD TRAUMA, MOD-SEVERE;Other (please specify) Report IMPRESSION: There are no acute intracranial changes. There are mildly depressed fractures of the left nasal bones with mild overlying soft tissue swelling. EXAM: CT Head or Brain w/o Contrast DATE: 01/16/2023 9:56 AM CLINICAL HISTORY: AMS HEAD TRAUMA, MOD-SEVERE TECHNIQUE: Multiple images axial images were obtained without contrast administration. 3-D sagittal and coronal reconstructions were performed. All CT scans at this facility use dose modulation, iterative reconstruction, and/or weight based dosing when appropriate to reduce radiation dose to as low as reasonably achievable. COMPARISON: FINDINGS: There is no evidence of acute hemorrhage, mass effect or edema. There are no extra-axial collections or space-occupying lesions. There is no evidence of acute ischemia, loss of white-white matter differentiation There is mild prominence of sulci and ventricles similar to the previous study indicating global cerebral atrophy. There are periventricular white matter hypodensities associated chronic microangiopathy. The posterior fossa is unremarkable, The orbits demonstrate no intra or extraconal lesions. The globes are intact. The visualized portions of paranasal sinuses are unremarkable. The calvarium is unremarkable. There are mildly depressed fractures of the nasal bones with mild overlying soft tissue swelling. Report Ordering Provider: Chaz Leung FINAL REPORT Dictated: 01/16/2023 10:56 am Cortez Valderrama MD, V. Signed (Electronic Signature): 01/16/2023 10:56 am Signed by: Cortez Valderrama MD, V. Transcribed by: OVI Technologist: Cecy LIU [facility] CT LUMBAR SPINE BONY RECONST RUCTIONon 01-16-2023 CT LUMBAR SPINE BONY RECONSTRUCTION EXAMINATION: CT OF THE LUMBAR SPINE WITHOUT CONTRAST 01/16/2023 TECHNIQUE: CT of the lumbar spine was performed without the administration of intravenous contrast. Multiplanar reformatted images are provided for review. Adjustment of mA and/or kV according to patient size was utilized. Automated exposure control, iterative reconstruction, and/or weight based adjustment of the mA/kV was utilized to reduce the radiation dose to as low as reasonably achievable. COMPARISON: None HISTORY: ORDERING SYSTEM PROVIDED HISTORY: fall TECHNOLOGIST PROVIDED HISTORY: fall FINDINGS: BONES/ALIGNMENT: There is normal alignment of the spine. The vertebral body heights are maintained. No acute fracture. No osseous destructive lesion is seen. DEGENERATIVE CHANGES: Multiple degenerative discs at T11-T12, T12-L1, L3-L4 and L4-L5. Mild diffuse disc bulges at multiple lumbar levels without significant canal stenosis or neural foraminal narrowing. SOFT TISSUES/RETROPERITONEUM: No paraspinal mass is seen. IMPRESSION: No acute fracture traumatic malalignment. Interpreted by: Obinna Luis MD Signed by: Obinna Luis MD 01/16/23 Final result Normal [facility] CT Spine Cervical w/o Li heck 01-16-2023 CT Spine Cervical w/o Contrast Exam Date/Time: 01/16/2023 10:07 EST Reason for Exam: NECK TRAUMA, DANGEROUS INJURY MECHANISM;Trauma Report IMPRESSION: THERE ARE NO ACUTE OSSEOUS CHANGES. CLINICAL HISTORY: Trauma, NECK TRAUMA, DANGEROUS INJURY MECHANISM COMPARISON: TECHNIQUE: Multiple axial images of the cervical spine were obtained without contrast administration. 3-D sagittal and coronal reconstructions were performed. All CT scans at this facility use dose modulation, iterative reconstruction, and/or weight based dosing when appropriate to reduce radiation dose to as low as reasonably achievable. FINDINGS: The prevertebral soft tissues are unremarkable. The trachea is patent. There are no lytic or sclerotic bone lesions. There is no acute fracture or subluxation. There is no loss of vertebral body height. The spine is in anatomic alignment. There is severe intervertebral disc space narrowing at every level. The axial images demonstrate no significant central canal narrowing or neural foraminal narrowing at any level. The visualized portions of the lung apices are within normal limits. Ordering Provider: Chaz Leung FINAL REPORT Dictated: 01/16/2023 10:55 am Cortez Valderrama MD, V. Signed (Electronic Signature): 01/16/2023 10:55 am Signed by: Cortez Valderrama MD, V. Transcribed by: OVI Technologist: Cecy LIU [facility] CT THORACIC SPINE BONY RECON STRUCTIONon 01-16-2023 CT THORACIC SPINE BONY RECONSTRUCTION EXAMINATION: CT OF THE THORACIC SPINE WITHOUT CONTRAST 01/16/2023 5:20 pm: TECHNIQUE: CT of the thoracic spine was performed without the administration of intravenous contrast. Multiplanar reformatted images are provided for review. Automated exposure control, iterative reconstruction, and/or weight based adjustment of the mA/kV was utilized to reduce the radiation dose to as low as reasonably achievable. COMPARISON: None. HISTORY: ORDERING SYSTEM PROVIDED HISTORY: fall TECHNOLOGIST PROVIDED HISTORY: fall FINDINGS: BONES/ALIGNMENT: There is mild S-shaped thoracic scoliosis. Thoracic alignment is otherwise maintained. No acute fracture or subluxation is identified. Vertebral body heights are preserved. DEGENERATIVE CHANGES: There is mild multilevel intervertebral disc space narrowing with associated degenerative endplate changes. There is a well corticated ossific density at the anterior superior endplate of T12, chronic in nature. SOFT TISSUES: Normal visualized paraspinal soft tissues. IMPRESSION: No acute fracture or subluxation of the thoracic spine. Interpreted by: Nick Hinojosa MD Signed by: Nick Hinojosa MD 01/16/23 Final result Normal [facility] Consent for Treatmenton 01-07 Consent for Treatment [id number] Normal [facility] Creatinine w/GFRon 3 Creatinine [Mass/Vol] 0.6 mg/dL Low 0.7-1.2 [facility] Comment on above: Performed By: #### V D25, GLU, CBC, ALB, PT, PTT, ALCB, BUN, CREG, GLYHGB, FT4, TROPI, TSHX, LYTE #### [facility] [address] [place] [id number] Rag Collector: Paul Hodge MD GFR/1.73 sq M.predicted among non-blacks MDRD (S/P/Bld) [Vol rate/Area] mL/min/{1.73_m2} Normal >60 [facility] Comment on above: Result Comment: These results are not intended for use in patients <18 years of age. eGFR results are calculated without a race factor using the 2020 CKD-EPI equation. Careful clinical correlation is recommended, particularly when comparing to results calculated using previous equations. The CKD-EPI equation is less accurate in patients with extremes of muscle mass, extra-renal metabolism of creatine, excessive creatine ingestion, or following therapy that affects renal tubular secretion. Performed By: #### V D25, GLU, CBC, ALB, PT, PTT, ALCB, BUN, CREG, GLYHGB, FT4, TROPI, TSHX, LYTE #### [facility] [address] [place] [id number] Rag Collector: Paul Hodge MD ED Clinical Summaryon 2022 ED Clinical Summary (Inserted Image. Benita ble to display) [address] [address] ED Clinical Summary Person Information [facility] Age: 82 Years : 1940 Sex: Male Language: Chinese PCP: ALPESH DUNN DO Marital Status: Visit Id: Visit Reason: Fall; Trauma - major; Leg pain-swelling; LEG INJURY Speciality: Acuity: 2 Enc Type: Emergency Med Service: Emergency Arrival: 01/16/2023 09:21:19 Discharge: 01/16/2023 12:11:14 LOS: 000 02:50 Checkin: 01/16/2023 09:21:19 Checkout: 01/16/2023 12:11:14 Dispo Type: Short-Term Hosp as IP EVENTS: Event Name Event Status Request Date/Time Start Date/Time Complete Date/Time Arrive Complete 01/16/2023 09:21:19 01/16/2023 09:21:19 01/16/2023 09:21:19 Document Home Meds Request 01/16/2023 09:21:19 Triage Complete 01/16/2023 09:21:19 01/16/2023 09:29:19 01/16/2023 09:29:19 Bed Assign Complete 01/16/2023 09:22:46 01/16/2023 09:22:46 01/16/2023 09:22:46 Dr Exam Complete 01/16/2023 09:22:46 01/16/2023 09:24:29 01/16/2023 09:24:29 RN Exam Complete 01/16/2023 09:22:46 01/16/2023 09:53:56 01/16/2023 09:53:56 Registration Complete 01/16/2023 09:24:29 01/16/2023 09:44:55 01/16/2023 09:44:55 Trauma II Request 01/16/2023 09:24:35 Consult Request 01/16/2023 09:25:56 EKG Complete 01/16/2023 09:25:56 01/16/2023 09:40:46 Pending Labs Complete 01/16/2023 09:25:56 01/16/2023 10:34:41 Lab Complete 01/16/2023 09:25:56 01/16/2023 10:34:41 Urine Collect Complete 01/16/2023 09:25:56 01/16/2023 10:34:41 Meds Admin Complete 01/16/2023 09:25:56 01/16/2023 09:46:02 RT Request 01/16/2023 09:25:56 Patient Care Request 01/16/2023 09:25:56 CT Complete 01/16/2023 09:25:56 01/16/2023 09:56:46 01/16/2023 10:07:26 X-Ray Complete 01/16/2023 09:25:56 01/16/2023 09:39:39 01/16/2023 09:40:08 Blood Collect Request 01/16/2023 09:25:56 Dr Exam Complete 01/16/2023 09:25:56 01/16/2023 09:25:56 01/16/2023 09:25:56 Wet Read Request 01/16/2023 09:40:08 Pending Labs Complete 01/16/2023 09:43:16 01/16/2023 09:43:16 01/16/2023 10:04:27 Lab Complete 01/16/2023 09:43:16 01/16/2023 09:43:16 01/16/2023 10:04:27 Trauma II Request 01/16/2023 09:44:39 Reg Complete Request 01/16/2023 09:44:55 Reg Bed Request Complete 01/16/2023 09:44:55 01/16/2023 09:44:55 01/16/2023 09:44:55 Pending Labs Complete 01/16/2023 09:52:02 01/16/2023 09:52:02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 et al. prepared from 1437 samples obtained at 7 different centers using the same coagulation reagent and instrumentation as [facility]. Currently there are no coagulation studies available worldwide for children to 14 days, and no normal ranges. Performed By: #### 2 127493, 1278750, 5379202, 76292950, 1104965, 62030191, 3570623, 9984334, 3793590 #### [facility] [address] [place] [address] Pre-Arrival Noteon 3 Pre-Arrival Note Pre-Arrival Summary Name: , NEO Current Date: 12/17/2022 13:08:12 EST Gender: Male Date of : Age: 82 Pre-Arrival Type: EMS ETA: 12/17/2022 13:00:00 EST Primary Care Physician: Presenting Problem: head trauma Pre-Arrival User: Riri Yoder RN Referring Source: Location: Completion Date/Time: 12/17/2022 12:52:00 [facility] Emergency Department Pre-Hospital Report Form _ Vital Signs: Pre-Hospital Report: Treatment in Route: Response to Treatment: Misc. Issues: Normal [facility] Troponinon 12-17-2022 Troponin I.cardiac [Mass/Vol] 22.50 pg/mL Normal 15.90-38.40 [facility] Comment on above: Result Comment: The 95% CI (Confidence Interval) PPV (Positive Predictive Value) for myocardial infarction in females is 38 pg/mL, in males 51 pg/mL. The results should be used in conjunction with clinical conditions of myocardial infarction. (Access High Sensitivity Troponin I Instructions For Use, Lissett Wallowa, September 2017) Performed By: #### 2 726654, 3988477, 1490650, 46700082, 0426545, 55751500, 0874057, 5608611, 0129607 ####[facility] [address] [place] [address] Vaccinationson 12-17-2022 Vaccinations [id number]#1.00TIFF Normal [facility] XR Chest Single Viewon 12-17 XR Chest Single View Exam Date/Time: 12/17/2022 13:54 EST Reason for Exam: Trauma;Other (please specify) Report IMPRESSION: NO RADIOGRAPHIC EVIDENCE OF ACUTE INTRATHORACIC PROCESS. EXAM: XR Chest Single View History: Chest pain Technique: Portable AP view of the chest. Comparison: Radiographs 01/18/2018 Findings: Atherosclerotic calcification of the thoracic aorta. The cardiomediastinal silhouette is within normal limits. No pneumothorax, pleural effusion, or consolidation. No acute osseous abnormality. Ordering Provider: Jose Rose FINAL REPORT Dictated: 12/17/2022 2:13 pm Pranav Busby DO Signed (Electronic Signature): 12/17/2022 2:13 pm Signed by: Pranav Busby DO Transcribed by: OVI Technologist: ANTOINE Technical Comments Radiation Dose: Ka,r in mGy = na DAP = na Normal [facility] XR Finger(s) Min 2 Views Rig hton 12-17-2022 XR Finger(s) Min 2 Views Right Exam Date/Time: 12/17/2022 13:54 EST Reason for Exam: Pain, Traumatic Report IMPRESSION: NO ACUTE OSSEOUS ABNORMALITY. EXAMINATION: XR Finger(s) Min 2 Views Right HISTORY: Finger pain after trauma COMPARISON: None available TECHNIQUE: AP, lateral, and oblique views of the thumb of the right hand FINDINGS: No acute fracture or dislocation. Degenerative changes at the first carpal metacarpal joint and interphalangeal joint of the thumb. Mild soft tissue edema of the thumb. Ordering Provider: Jose Rose FINAL REPORT Dictated: 12/17/2022 2:14 pm Pranav Busby DO Signed (Electronic Signature): 12/17/2022 2:14 pm Signed by: Pranav Busby DO Transcribed by: OVI Technologist: DPR Technical Comments Radiation Dose: Ka,r in mGy = na DAP = na Normal [facility] eGFRon 12-17-2022 GFR/1.73 sq M.predicted among non-blacks MDRD (S/P/Bld) [Vol rate/Area] 87 mL/min/1.73 m2 Normal >=59 [facility] Comment on above: Order Comment: Order added by Discern Expert. Result Comment: Meter/Relay Craftsman valencia kidney disease could be indicated at eGFR's of less than 60 mL/min/1.73m2. Kidney failure is indicated at less than 15 mL/min/1.73m2. Performed By: #### 2 962641, 2329948, 3279942, 43119495, 2865391, 59620765, 9168224, 9311364, 8393516 #### [facility] [address] [place] [address] Retail - Clinical Noteon Retail - Clinical Note [id number]#1.00TIFF Normal [facility] Formson 11-25-2022 Forms [id number]#1.00TIFF [facility] Retail - Clinical Noteon Retail - Clinical Note [id number]#1.00TIFF [facility] Reportson 10-31-2022 Lab Reports [id number]#1.00CD:127 [facility] Reminderson 10-14-2022 Reminders - From: Kristin Gomez To: EU - Recalls Garcia; Sent: 07/26/2022 09:51:14 EDT Show up: 09/25/2022 09:51:00 EDT Subject: BMP Due Date/Time: 09/25/2022 09:51:00 EDT Pt to get BMP 2 mos after starting enzalutamide. Please call pt to confirm that he got this done. From: PAUL GUTIÉRREZ PA-C ( - Recalls Jose) To: Luis GARCIA MD; Sent: 09/30/2022 23:21:19 EDT ! Show up: 09/30/2022 23:22:00 EDT labs are fine. Pt needs LFT panel done.pw From: Luis GARCIA MD To: EU - Clinical; Sent: 10/13/2022 14:44:04 EDT Show up: 10/13/2022 14:43:00 EDT Subject: RE: BMP Pt has been notified. Will get labs done @ [facility] in next 1-2wks. . [facility] 09-30-2022 Lab Reports [id number]#1.00CD:127 [facility] Retail - Clinical Noteon Retail - Clinical Note [id number]#1.00CD:127 [facility] Pre-Certification Formon Pre-Certification Form [id number]#1.00CD:127 [facility] Retail - Clinical Noteon Retail - Clinical Note [id number]#1.00CD:127 [facility] Retail - Clinical Note [id number]#1.00CD:127 [facility] Retail - Clinical Noteon Retail - Clinical Note [id number]#1.00CD:127 [facility] Retail - Clinical Noteon Retail - Clinical Note [id number]#1.00CD:127 Normal [facility] TESTOSTERONE, TOTALon 2021 Testosterone [Mass/Vol] ng/dL Critically low 264-916 [place] Comment on above: Result Comment: Adul t male reference interval is based on a population of healthy nonobese males (BMI <30) between 19 and 39 years old. Mars, et.al. JCEM 2017,102;9404-2523. PMID: 85926072. Performed By: #### T ESTTOT #### [facility] [address] [place] [address] Dr. Adrianna Luevano US REX DOP LEG RTon 08-12-19 22 US REX DOP LEG RT EXAMINATION: US REX DOP LEG RT HISTORY: Pain of right lower leg COMPARISON: No relevant comparison available. FINDINGS: REGION: Right lower extremity THROMBI: None. COMPRESSIBILITY: Normal compressibility. FLOW: Normal waveform and antegrade flow between 5 and 20 cm/s. OTHER: Mild edema. IMPRESSION: 1. No deep vein thrombus within the right lower extremity. Electronically authenticated by: DANDY SANCHEZ Date: 2021-08-11 17:55 Normal [facility] CBC AUTO DIFFon 07-22-2021 BASO # 0.0 103/ul Normal 0.0-0.1 [facility] Comment on above: Performed By: #### C BC #### [facility] [address] [place] [address] Dr. Adrianna Luevano Basophils/100 WBC (Bld) 0.5 % Normal 0.2-2.0 [facility] Comment on above: Performed By: #### C BC #### [facility] [address] [place] [address] [address] Adrianna Luevano EO # 0.5 103/ul Normal 0.0-0.7 [facility] Comment on above: Performed By: #### C BC #### [facility] [address] [place] [address] Dr. Adrianna Luevano Eosinophils/100 WBC (Bld) 6.2 % Normal 0.9-7.0 [facility] Comment on above: Performed By: #### C BC #### [facility] [address] [place] [address] Dr. Adrianna Luevano Erythrocyte distribution width (RBC) [Ratio] 13.6 % Normal 11.0-15.0 [place] Comment on above: Performed By: #### C BC #### [facility] [address] [place] [address] Dr. Adrianna Luevano Hematocrit (Bld) [Volume fraction] 45.9 % Normal 42.0-54.0 [place] Comment on above: Performed By: #### C BC #### [facility] [address] [place] [address] Dr. Adrianna Luevano Hemoglobin (Bld) [Mass/Vol] 15.2 g/dL Normal 14.0-18.0 [place] Comment on above: Performed By: #### C BC #### [facility] [address] [place] [address] Dr. Adrianna Luevano IG # 0.04 10e3/ul Critically high 0.00-0.03 [place] Comment on above: Performed By: #### C BC #### [facility] [address] [place] [address] Dr. Adrinana Luevano IG % 0.5 % Normal 0.0-0.5 [place] Comment on above: Performed By: #### C BC #### [facility] [address] [place] [address] Dr. Adrianna Luevano LYMPH # 1.2 103/ul Normal 1.2-3.8 [facility] Comment on above: Performed By: #### C BC #### [facility] [address] [place] [address] Dr. Adrianna Luevano Lymphocytes/100 WBC (Bld) 13.7 % Critically low 20.5-60.0 [place] Comment on above: Performed By: #### C BC #### [facility] [address] [place] [address] Dr. Adrianna Luevano MANUAL DIFF REQ NO Normal [place] Comment on above: Performed By: #### C BC #### [facility] [address] [place] [address] Dr. Adrianna Luevano MCH (RBC) [Entitic mass] 29.9 pg Normal 25.9-34.0 [facility] Comment on above: Performed By: #### C BC #### [facility] [address] [address] [address] Adrianna Luevano MCHC (RBC) [Mass/Vol] 33.1 g/dL Normal 29.9-35.2 [facility] Comment on above: Performed By: #### C BC #### [facility] [address] [place] [address] Dr. Adrianna Luevano MCV (RBC) [Entitic vol] 90.4 fL Normal 80.0-94.0 [facility] Comment on above: Performed By: #### C BC #### [facility] [address] [place] [address] Dr. Adrianna Luevano MONO # 1.1 103/ul Critically high 0.3-0.8 [facility] Comment on above: Performed By: #### C BC #### [facility] [address] [place] [address] Dr. Adrianna Luevano Monocytes/100 WBC (Bld) 12.6 % Critically high 1.7-12.0 [facility] Comment on above: Performed By: #### C BC #### [facility] [address] [place] [address] Dr. Adrianna Luevano NEUT # 5.7 103/ul Normal 1.4-6.5 [facility] Comment on above: Performed By: #### C BC #### [facility] [address] [place] [address] Dr. Adrianna Luevano Neutrophils/100 WBC (Bld) 66.5 % Normal 43.0-75.0 [facility] Comment on above: Performed By: #### C BC #### [facility] Laboratory [address] [place] [address] Dr. Adrianna Luevano Platelet mean volume (Bld) [Entitic vol] 11.3 fL Normal 9.5-13.5 [facility] Comment on above: Performed By: #### C BC #### [facility] Laboratory [address] [place] [address] Dr. Adrianna Luevano PLT 183 103/ul Normal 150-450 [place] Comment on above: Performed By: #### C BC #### [facility] Laboratory [address] [place] [address] Dr. Adrianna Luevano RBC 5.08 106/ul Normal 4.70-6.10 [place] Comment on above: Performed By: #### C BC #### [facility] Laboratory [address] [place] [address] Dr. Adrianna Luevano WBC 8.6 103/ul Normal 4.0-11.0 [place] Comment on above: Performed By: #### C BC #### [facility] Laboratory [address] [place] [address] Dr. Adrianna Luevano PROF CHEM 8 (BAS METB)on Anion gap [Moles/Vol] 13.4 mmol/L Normal [facility] Comment on above: Performed By: #### B MP #### [facility] Laboratory [address] [place] [address] Dr. Adrianna Luevano Calcium [Mass/Vol] 8.9 mg/dL Normal 8.5-10.1 [place] Comment on above: Performed By: #### B MP #### [facility] Laboratory [address] [place] [address] Dr. Adrianna Luevano Chloride [Moles/Vol] 106 mmol/L Normal 98-107 [facility] Comment on above: Performed By: #### B MP #### [facility] Laboratory [address] [place] [address] Dr. Adrianna Luevano CO2 [Moles/Vol] 23.1 mmol/L Normal 21.0-32.0 [place] Comment on above: Performed By: #### B MP #### [facility] Laboratory [address] [place] [address] Dr. Adrianna Luevano Creatinine [Mass/Vol] 0.87 mg/dL Normal 0.70-1.30 [place] Comment on above: Performed By: #### B MP #### [facility] Laboratory [address] [place] [address] Dr. Adrianna Luevano EGFR-AF GUAMANIAN >60 Normal >=60 [place] Comment on above: Performed By: #### B MP #### [facility] Laboratory [address] [address] [address] Adrianna Luevano EGFR-NON AF GUAMANIAN >60 Normal >=60 [place] Comment on above: Performed By: #### B MP #### [facility] Laboratory [address] [address] [address] Adrianna Luevano Glucose [Mass/Vol] 104 mg/dL Normal 74-106 [place] Comment on above: Performed By: #### B MP #### [facility] Laboratory [address] [address] [address] Adrianna Luevano Potassium [Moles/Vol] 4.5 mmol/L Normal 3.5-5.1 [place] Comment on above: Performed By: #### B MP #### [facility] Laboratory [address] [address] [address] Adrianna Luevano Sodium [Moles/Vol] 138 mmol/L Normal 136-145 [place] Comment on above: Performed By: #### B MP #### [facility] Laboratory [address] [address] [address] Adrianna Luevano Urea nitrogen [Mass/Vol] 22.0 mg/dL Critically high 7.0-18.0 [place] Comment on above: Performed By: #### B MP #### [facility] Laboratory [address] [address] [address] Adrianna Luevano Urea nitrogen/Creatinine [Mass ratio] 25.3 mg/mg Normal [place] Comment on above: Performed By: #### B MP #### [facility] Laboratory [address] [address] [address] Adrianna Luevano XR CHEST 2 Von 05-20-2021 XR CHEST 2 V EXAMINATION: XR CHES T 2 V HISTORY: Chronic cough COMPARISON: No relevant comparison available. FINDINGS: LUNGS: No significant pulmonary parenchymal abnormalities. VASCULATURE: No increased pulmonary vasculature. PLEURA: No pneumothorax, effusion, or pleural thickening. CARDIAC: No cardiomegaly or cardiac silhouette abnormality. MEDIASTINUM: No visible mass or adenopathy. BONES: No fracture or visible bone lesion. OTHER: Negative. IMPRESSION: 1. No acute cardiopulmonary process. 2. No appreciable significant chronic interstitial changes. 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 (no units)Date Value03/17/2017 <0.0601/28/2017 <0.06 RADIOLOGY: Post-implant CT reviewed. Evidence of some prostate edema andchange from implant.ALLERGIESNo Known AllergiesamLODIPine (NORVASC) 5 mg tablettamsulosin ER (FLOMAX) 0.4 mg cp24 Take 0.4 mg by mouth twice daily.ALPRAZolam (XANAX) 0.25 mg tabletmeloxicam (MOBIC) 15 mg tabletREVIEW OF SYSTEMS:D/N = 4/2-3Hematuria: noneDysuria: YesIncontinence: Occasional postvoid dripUrgency: moderateCatheter use: noneMedications to aid urination: no- Total AUA Score: 10Bowel movement frequency: 1-2/dayBowel movement quality: variableBlood per rectum: noneAndrogen deprivation: Never.PHYSICAL EXAM:BP 140/82 Wt 94.8 kg (209 lb) BMI 32.01 kg/m?KPS: 100General Appearance: Alert and oriented. No acute distress.Abdomen soft nontender without apparent thyromegalyRectal exam is suspicious findings.ASSESSMENT/PLAN: Prostate adenocarcinoma, 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, biopsy Gleasonscore 4 + 3 = 7 (grade group 3), clinical stage IIB [id number] overall doing well with excellent PSA response. No significantposttreatment problems. Plan to have patient back for follow-up exam in 6months.He continues close follow-up with his urologist Dr. Garcia including PSAevaluation.Signed by: Marylou Pagan, [facility]:Alpesh Dunn MD ([facility])[address], [place] [address]Ixwdb: [phone]: [phone] Provider: Marylou PAGAN [[id number]]Allergies As of Date: 08/17/2017(No Known Allergies)Date Reviewed: 08/17/2017Reviewed by: Chino ([facility]) Tom - Fully AssessedReason for Visit: Follow Up [171]Primary Visit Diagnosis:History of prostate cancer [Z85.46]Prescriptions as of 08/17/2017 Sig: AMLODIPINE 5 MG TABLET TAMSULOSIN 0.4 MG CAPSULE Take 0.4 mg by mouth twice da* ALPRAZOLAM 0.25 MG TABLET MELOXICAM 15 MG TABLETProblem List As Of Date 08/17/2017 Noted Resolved Prostate cancer (HCC) [C61] INVALID FOR* History of prostate cancer [Z85.46] INVALID FOR*Visit Notes:>> James (Jarad Rowell RN TueAug 17, 2017 10:05 AM Status: SignedAUA= 10Medications Discontinued During This Encounter doxazosin (CARDURA) 2 mg tablet 09/15/2016 08/17/2017 Class: Historical Med Sig: Disc: Discontinued by another Health Care Provider mirabegron (MYRBETRIQ) 25 mg Tb24 08/17/2017 Class: Historical Med Route: ORAL Sig: Take by mouth once daily. Disc: Discontinued by another Health Care ProviderDisposition: Return in about 6 months (around 02/17/2018).Follow-up and Disposition History RecordedEncounter Number: [id number] Status:Closed by Marylou PAGAN MD on 08/19/17 [facility] CNOVSPon 08-17-2017 CNOVSP Visit (SP) Office (HEMASA) OUSMANE GUIDRY ([id number]) 1940 MDate Time Provider Department08/17/17 10:30 AM CHINO MCGINNIS ([facility]) LATISHA During your visit today, we recorded the following information about you: Blood pressure Weight 140/82 94.8 kgReferring Provider: Marylou PAGAN [[id number]]Allergies As of Date: 08/17/2017(No Known Allergies)Date Reviewed: 08/17/2017Reviewed by: Chino ([facility]) Tom - Fully AssessedReason for Visit: Cancer Survivorship [[id number]]Primary Visit Diagnosis:Prostate cancer (HCC) [C61]Prescriptions as of 08/17/2017 Sig: AMLODIPINE 5 MG TABLET TAMSULOSIN 0.4 MG CAPSULE Take 0.4 mg by mouth twice da* ALPRAZOLAM 0.25 MG TABLET MELOXICAM 15 MG TABLETProblem List As Of Date 08/17/2017 Noted Resolved Prostate cancer (HCC) [C61] INVALID FOR* History of prostate cancer [Z85.46] INVALID FOR*Encounter Status:Closed by CHINO MCGINNIS CNP on 7/11/18 [facility] PROGRESSon 08-17-2017 Protein HNO ID: [id number] thor: Marylou Crain: (none)Author Type: PhysicianType: Progress NotesFiled: 08/19/2017 12:57 PMNote Text:Radiation Oncology - Follow Up NotePATIENT NAME: Park Aldrich : Prostate adenocarcinoma, 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, biopsy Gleasonscore 4 + 3 = 7 (grade group 3), clinical stage IIB [id number] SUMMARY:DATES OF TREATMENT: external beam: 10/18/16-, prostatebrachytherapy 12/23/16?AREA TREATED: Pelvis/Prostate4,500cGy in 25 fractions, 3 Vivas, IMRT, 6MV?Prostate brachytherapy, Pd-103, 52 seeds, 100 GyINTERVAL HISTORY: The patient presents for routine follow-up overall [facility].PSA HISTORY:PSA. (no units)Date Value03/17/2017 <0.0601/28/2017 <0.06 RADIOLOGY: Post-implant CT reviewed. Evidence of some prostate edema andchange from implant.ALLERGIESNo Known AllergiesamLODIPine (NORVASC) 5 mg tablettamsulosin ER (FLOMAX) 0.4 mg cp24 Take 0.4 mg by mouth twice daily.ALPRAZolam (XANAX) 0.25 mg tabletmeloxicam (MOBIC) 15 mg tabletREVIEW OF SYSTEMS:D/N = 4/2-3Hematuria: noneDysuria: YesIncontinence: Occasional postvoid dripUrgency: moderateCatheter use: noneMedications to aid urination: no- Total AUA Score: 10Bowel movement frequency: 1-2/dayBowel movement quality: variableBlood per rectum: noneAndrogen deprivation: Never.PHYSICAL EXAM:BP 140/82 Wt 94.8 kg (209 lb) BMI 32.01 kg/m?KPS: 100General Appearance: Alert and oriented. No acute distress.Abdomen soft nontender without apparent thyromegalyRectal exam is suspicious findings.ASSESSMENT/PLAN: Prostate adenocarcinoma, 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, biopsyGleason score 4 + 3 = 7 (grade group 3), clinical stage IIB [id number] overall doing well with excellent PSA response. No significantposttreatment problems. Plan to have patient back for follow-up examin 6 months.He continues close follow-up with his urologist Dr. Garcia including PSAevaluation.Signed by: Marylou Pagan, [facility]:Alpesh Dunn MD ([facility])[address]CHERYL [place] [address]Enpgq: [phone]: [phone] Normal [facility] CNOVon 02-02-2017 CNOV Office Visit (RADTSA) OUSMANE GUIDRY ([id number]) 1940 [facility] Time Provider Tguwkypuyx49/27/17 10:45 AM Marylou PAGAN During your visit today, we recorded the following information about you: Weight 93 kgJames Rowell LPN, RN 02/02/2017 10:59 AM SignedAUA= 22G Keyshawn Pagan MD 02/03/2017 3:29 PM SignedRadiation Oncology - Follow Up NotePATIENT NAME: Park Aldrich : Prostate adenocarcinoma, 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 There with urinary urgency but no other new problems.PSA HISTORY:PSA. (no units)Date Value01/28/2017 ANDlt;0.06 RADIOL OGY: Post-implant CT reviewed. Evidence of some prostate edema andchange from implant.ALLERGIESNo Known Allergiestamsulosin ER (FLOMAX) 0.4 mg cp24 Take 0.4 mg by mouth twice daily.mirabegron (MYRBETRIQ) 25 mg Tb24 Take by mouth once daily.ALPRAZolam (XANAX) 0.25 mg tabletmeloxicam (MOBIC) 15 mg tabletdoxazosin (CARDURA) 2 mg tabletREVIEW OF SYSTEMS:D/N = 4/2-3Hematuria: noneDysuria: YesIncontinence: noneUrgency: moderateCatheter use: noneMedications to aid urination: no- Total AUA Score: 20Bowel movement frequency: 1-2/dayBowel movement quality: variableBlood per rectum: noneAndrogen deprivation: Never.PHYSICAL EXAM:Wt 93 kg (205 lb) BMI 31.4 kg/m2KPS: 100General Appearance: Alert and oriented. No acute distress.Rectal exam is deferred. Perineal area without ecchymosis tenderness or seroma.ASSESSMENT/PLAN: Prostate adenocarcinoma, 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, biopsy Gleasonscore 4 + 3 = 7 (grade group 3), clinical stage IIB T6kU1M3Rqssyyf overall doing well with improving post-implant urinary issues. Goodinitial PSA response. No modification in the follow-up or treatment plan basedon post-implant CT. Plan to have patient back for follow-up exam in 6 months.He continues close follow-up with his urologist Dr. Garcia with furtherschedule PSA the spring.Signed by: Marylou Pagan, [facility]:Alpesh Dunn MD (Dr)[address], [place] [address]Uxybk: [phone]: [phone] Provider: Marylou PAGAN [[id number]]Allergies As of Date: 02/02/2017(No Known Allergies)Date Reviewed: 02/02/2017Reviewed by: James Rowell RN - Fully AssessedReason for Visit: Follow Up [171]Primary Visit Diagnosis:Prostate cancer (HCC) [C61]Order(s):PSA (OUTSIDE) [3504776] Order #: [id number] as of 02/02/2017 Sig: TAMSULOSIN 0.4 MG CAPSULE Take 0.4 mg by mouth twice da* MIRABEGRON ER 25 MG TABLET,EX* Take by mouth once daily. ALPRAZOLAM 0.25 MG TABLET MELOXICAM 15 MG TABLET DOXAZOSIN 2 MG TABLETProblem List As Of Date 02/02/2017 Noted Resolved Prostate cancer (HCC) [C61] INVALID FOR*Visit Notes:>> James Rowell RN TueFeb 02, 2017 10:50 AM Status: SignedAUA= 22Disposition: Return in about 6 months (around 08/03/2017).LOS history recordedFollow-up and Disposition History RecordedEncounter Number: [id number] Status:Closed by Marylou PAGAN MD on 02/03/17 Normal [facility] PROGRESSon 02-02-2017 Protein HNO ID: [id number] thor: Marylou Lovellervice: (none)Author Type: PhysicianType: Progress NotesFiled: 02/03/2017 3:29 PMNote Text:Radiation Oncology - Follow Up NotePATIENT NAME: Park Aldrich : Prostate adenocarcinoma, 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, biopsy Gleasonscore 4 + 3 = 7 (grade group 3), clinical stage IIB [id number] SUMMARY:DATES OF TREATMENT: external beam: 10/18/16--, prostatebrachytherapy 12/23/16?AREA TREATED: Pelvis/Prostate4,500cGy in 25 fractions, 3 Vivas, IMRT, 6MV?Prostate brachytherapy, Pd-103, 52 seeds, 100 GyINTERVAL HISTORY: The patient presents for routine follow-up 6 weeks aftercompletion of brachytherapy seed implant.Overall doing well. There with urinary urgency but no other new problems.PSA HISTORY:PSA. (no units)Date Value01/28/2017 <0.06 RADIOLOGY: Post-implant CT reviewed. Evidence of some prostate edema andchange from implant.ALLERGIESNo Known Allergiestamsulosin ER (FLOMAX) 0.4 mg cp24 Take 0.4 mg by mouth twice daily.mirabegron (MYRBETRIQ) 25 mg Tb24 Take by mouth once daily.ALPRAZolam (XANAX) 0.25 mg tabletmeloxicam (MOBIC) 15 mg tabletdoxazosin (CARDURA) 2 mg tabletREVIEW OF SYSTEMS:D/N = 4/2-3Hematuria: noneDysuria: YesIncontinence: noneUrgency: moderateCatheter use: noneMedications to aid urination: no- Total AUA Score: 20Bowel movement frequency: 1-2/dayBowel movement quality: variableBlood per rectum: noneAndrogen deprivation: Never.PHYSICAL EXAM:Wt 93 kg (205 lb) BMI 31.4 kg/m2KPS: 100General Appearance: Alert and oriented. No acute distress.Rectal exam is deferred. 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 No modification in the follow-up or treatmentplan based on post-implant CT. Plan to have patient back for follow-up exam in 6 months.He continues close follow-up with his urologist Dr. Garcia with furtherschedule PSA the spring.Signed by: Marylou Pagan, [facility]:Alpesh Dunn MD ([facility])[address] [place], [place] [address]Alnce: [phone]: [phone] [facility] CNOVon 01-05-2017 CNOV Office Visit (RADTSA) [facility]USMANE GUIDRY ([id number]) 1940 [facility] Mizkxbsfri74/29/17 10:45 AM Marylou PAGAN During your visit today, we recorded the following information about you: Blood pressure Weight 152/82 91.2 kgAyala Gross 01/05/2017 11:08 AM SignedAUA Score: 20Kyjose alfredo Gordon Keyshawn Pagan MD 01/07/2017 10:28 AM SignedRadiation Oncology - Follow Up NotePATIENT NAME: Park Aldrich : Prostate adenocarcinoma, 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, biopsy Pj score 4+ 3 = 7 (grade group 3), clinical stage IIB [id number] SUMMARY:DATES OF TREATMENT: external beam: 10/18/16-, prostate ihpmltblwolcl49/16/17?AREA TREATED: Pelvis/Prostate4,500cGy in 25 fractions, 3 Vivas, IMRT, 6MV?Prostate brachytherapy, Pd-103, 52 seeds, 100 GyINTERVAL HISTORY: The patient presents for routine follow-up 2 weeks aftercompletion of brachytherapy seed implant. Overall doing well. Occasionalslower stream but improving. Occasional mild dysuria. No hematuria. No othernew problems.PSA HISTORY:No results found for: PSA, PSAPERALLERGIESNo Known AllergiesALPRAZolam (XANAX) 0.25 mg tabletmeloxicam (MOBIC) 15 mg tabletdoxazosin (CARDURA) 2 mg tabletREVIEW OF SYSTEMS:D/N = 4/2-3Hematuria: noneDysuria: YesIncontinence: noneUrgency: moderateCatheter use: noneMedications to aid urination: no- Total AUA Score: 20Bowel movement frequency: 1-2/dayBowel movement quality: variableBlood per rectum: noneAndrogen deprivation: Never.PHYSICAL EXAM:BP 152/82 Wt 91.2 kg (201 lb) BMI 30.79 kg/m2KPS: 100General Appearance: Alert and oriented. No acute distress.Rectal exam is deferred. Perineal area without ecchymosis tenderness or seroma.ASSESSMENT/PLAN: Prostate adenocarcinoma, 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, biopsy Gleasonscore 4 + 3 = 7 (grade group 3), clinical stage IIB O8xS8D0Dfqytlg overall doing well with improving post-implant urinary issues. Noother new problems. Plan to have patient back in 2 weeks for post-implant CT,return for follow-up exam in 4 weeks.He continues close follow-up with his urologist Dr. Garcia as well.Signed by: Marylou Pagan, [facility]:Alpesh Dunn MD ([facility])[address] [place] [address]Mlovq: [phone]: [phone] Provider: Marylou PAGAN [[id number]]Allergies As of Date: 01/05/2017(No Known Allergies)Date Reviewed: 01/05/2017Reviewed by: Ayala Gross - Fully AssessedReason for Visit: Prostate Cancer [590] Cmt: 2 week post seed implant follow-upPrimary Visit Diagnosis:Prostate cancer (HCC) [C61]Order(s):PSA/PROSTSPE CAG DIAG [SQPSA] Order #: [id number] FUTUREPrescriptions as of 01/05/2017 Sig: ALPRAZOLAM 0.25 MG TABLET MELOXICAM 15 MG TABLET DOXAZOSIN 2 MG TABLETProblem List As Of Date 01/05/2017 Noted Resolved Prostate cancer (HCC) [C61] INVALID FOR*Visit Notes:>> Ayala Gross Wed Jan 05, 2017 11:01 AM Status: SignedAUA Score: 20Kyliamaury GrossFollow-up and Disposition History RecordedEncounter Number: [id number] Status:Closed by Marylou PAGAN MD on 01/07/17 [facility] PROGRESSon 01-05-2017 Protein HNO ID: [id number] thor: Marylou QuinterorService: (none)Author Type: PhysicianType: Progress NotesFiled: 01/07/2017 10:28 AMNote Text:Radiation Oncology - Follow Up NotePATIENT NAME: Park Aldrich : Prostate adenocarcinoma, 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, biopsy Gleasonscore 4 + 3 = 7 (grade group 3), clinical stage IIB [id number] SUMMARY:DATES OF TREATMENT: external beam: 10/18/16-, prostatebrachytherapy 12/23/16?AREA TREATED: Pelvis/Prostate4,500cGy in 25 fractions, 3 Vivas, IMRT, 6MV?Prostate brachytherapy, Pd-103, 52 seeds, 100 GyINTERVAL HISTORY: The patient presents for routine follow-up 2 weeks aftercompletion of brachytherapy seed implant. Overall doing well. Occasionalslower stream but improving. Occasional mild dysuria. No hematuria. Noother new problems.PSA HISTORY:No results found for: PSA, PSAPERALLERGIESNo Known AllergiesALPRAZolam (XANAX) 0.25 mg tabletmeloxicam (MOBIC) 15 mg tabletdoxazosin (CARDURA) 2 mg tabletREVIEW OF SYSTEMS:D/N = 4/2-3Hematuria: noneDysuria: YesIncontinence: noneUrgency: moderateCatheter use: noneMedications to aid urination: no- Total AUA Score: 20Bowel movement frequency: 1-2/dayBowel movement quality: variableBlood per rectum: noneAndrogen deprivation: Never.PHYSICAL EXAM:BP 152/82 Wt 91.2 kg (201 lb) BMI 30.79 kg/m2KPS: 100General Appearance: Alert and oriented. No acute distress.Rectal exam is deferred. Perineal area without ecchymosis tenderness orseroma.ASSESSMENT/PLAN: Prostate adenocarcinoma, 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, biopsyGleason score 4 + 3 = 7 (grade group 3), clinical stage IIB K3vT0C8Nqekvlv overall doing well with improving post-implant urinary issues. Noother new problems. Plan to have patient back in 2 weeks for post-implantCT, return for follow-up exam in 4 weeks.He continues close follow-up with his urologist Dr. Garcia as well.Signed by: Marylou Pagan, [facility]:Alpesh Dunn MD (DrC)[address] [facility]ITALjoseF[place], [place] [address]Zalmo: [phone]: [phone] Normal [facility] CNOVon 12-23-2016 CNOV Office Visit (RADTSA) OUSMANE GUIDRY ([id number]) 1940 MDate Time Provider Xyvsvdyzna50/16/17 8:00 AM Marylou PAGAN During your visit today, we recorded the following information about you:Marylou Pagan MD 01/26/2017 11:01 AM SignedDate: 12/23/16[facility] prostate transperineal brachytherapy implantSources: Pd-103Anesthesia:generalUr ologist: Dr. GarciaRadiation Oncologist: Dr. Pagan?This is an operative report supplement to Dr. Tucker's note. Prior the theimplant patient underwent planning using transrectal ultrasound based. Theplanning including outline of prostate and planning margin around prostate todeliver 100 Gy using Pd 103 sources.It was determined 52 sources, for a total of 83.2 mCi was necessary using 15needles.?Prior to the procedure on the morning of the implant, patient identified byname and hospital ID bracelet. After anesthesia administered patient placed indorsal-lithotomy position and ultrasound study done showing good correlationwith planning images and excellent visualization of the gland. Implant was thencarried out using transperineal technique with active ultrasound andfluoroscopic guidance. At the end of the case the treatment planning ultrasoundcomputer showed captured seed located in expected position with appropriatetarget coverage, no extra seeds implanted. X-ray image showed good seeddistribution and all 52 sources. Intraoperative dosimetry reviewed showing D90of ANDgt;90%, and excelent coverage of gland by the 100% IDL.After the cystoscopy physics performed survey with meter of patient, cystoscopyfluid, floor, trash, work table and general area. No excess activity seen,results documented.?Alvarado Pagan MD?[facility]Referring Provider: Marylou PAGAN [[id number]]Allergies As of Date: 12/23/2016(No Known Allergies)Date Reviewed: 11/15/2016Reviewed by: Phoebe (Rn) LAQUITA Segura - Fully AssessedPrimary Visit Diagnosis:Prostate cancer (HCC) [C61]Prescriptions as of 12/23/2016 Sig: ALPRAZOLAM 0.25 MG TABLET MELOXICAM 15 MG TABLET DOXAZOSIN 2 MG TABLETProblem List As Of Date 12/23/2016 Noted Resolved Prostate cancer (HCC) [C61] INVALID FOR*Follow-up and Disposition History RecordedEncounter Number: [id number] Status:Closed by Marylou PAGAN MD on 01/26/17 [facility] PROGRESSon 12-23-2016 Protein HNO ID: [id number] thor: Marylou Lovellervice: (none)Author Type: PhysicianType: Progress NotesFiled: 01/26/2017 11:01 AMNote Text:Date: 12/23/16[facility] [facility]: [facility] transperineal brachytherapy implantSources: Pd-103Anesthesia:generalUr ologist: Dr. GarciaRadiation Oncologist: Dr. Pagan?This is an operative report supplement to Dr. Tucker's note. Prior the theimplant patient underwent planning using transrectal ultrasound based. Theplanning including outline of prostate and planning margin around prostateto deliver 100 Gy using Pd 103 sources.It was determined 52 sources, for a total of 83.2 mCi was necessary using15 needles.?Prior to the procedure on the morning of the implant, patient identifiedby name and hospital ID emily. After anesthesia administered patientplaced in dorsal-lithotomy position and ultrasound study done showing goodcorrelation with planning images and excellent visualization of the gland.Implant was then carried out using transperineal technique with activeultrasound and fluoroscopic guidance. At the end of the case the treatmentplanning ultrasound computer showed captured seed located in expectedposition with appropriate target coverage, no extra seeds implanted. X-rayimage showed good seed distribution and all 52 sources. Intraoperativedosimetry reviewed showing D90 of >90%, and excelent coverage of gland bythe 100% IDL.After the cystoscopy physics performed survey with meter of patient,cystoscopy fluid, floor, trash, work table and general area. No excessactivity seen, results documented.?Alvarado Pagan MD?[facility] PROGRESSon 12-10-2016 Protein HNO ID: [id number] thor: Marylou Lovellervice: (none)Author Type: PhysicianType: Progress NotesFiled: 12/10/2016 11:42 AMNote Text:Volume StudyProcedure: Patient placed in supine position and planned position forupcoming implant. Legs placed in dorsolithotomy position, which wastolerable and stable. Topical lidocaine jelly used. Transrectal probeintroduced and position and imaging adjusted. Using floor mountedstabilizer and stepper serial images from the base to the apex at 5mmincrements were taken. Gland was well visualized with a size of 23.4 cc.Prostate, rectum and urethra drawn on treatment planning computer.Enlargement of prostate volume by 2-3mm anteriorly and lateral was done tocreate planning volume. Radiation treatment plan is to deliever 100 Gy tothe planning volume using Pd-103 sources.Marylou Pagan MD [facility] Office Visit (RADTSA) OUSMANE GUIDRY ([id number]) 1940 [facility] Time Provider Opyxgnyukt88/31/17 8:00 AM Marylou PAGAN During your visit today, we recorded the following information about you:Marylou Pagan MD 12/10/2016 11:42 AM SignedVolume StudyProcedure: Patient placed in supine position and planned position for upcomingimplant. Legs placed in dorsolithotomy position, which was tolerable andstable. Topical lidocaine jelly used. Transrectal probe introduced andposition and imaging adjusted. Using floor mounted stabilizer and stepperserial images from the base to the apex at 5mm increments were taken. Gland waswell visualized with a size of 23.4 cc.Prostate, rectum and urethra drawn on treatment planning computer. Enlargementof prostate volume by 2-3mm anteriorly and lateral was done to create planningvolume. Radiation treatment plan is to deliever 100 Gy to the planning volumeusing Pd-103 sources.Marylou Pagan [facility] Provider: Marylou PAGAN [[id number]]Allergies As of Date: 12/07/2016(No Known Allergies)Date Reviewed: 11/15/2016Reviewed by: Phoebe (Rn) LAQUITA Segura - Fully AssessedReason for Visit: Volume Study [4052]Primary Visit Diagnosis:Prostate cancer (HCC) [C61]Prescriptions as of 12/07/2016 Sig: ALPRAZOLAM 0.25 MG TABLET MELOXICAM 15 MG TABLET DOXAZOSIN 2 MG TABLETProblem List As Of Date 12/07/2016 Noted Resolved Prostate cancer (HCC) [C61] INVALID FOR* Status:Closed by Marylou PAGAN MD on 12/10/16 Normal [facility] PROGRESSon 11-19-2016 Protein HNO ID: [id number] thor: Maryluo Lovellervice: (none)Author Type: PhysicianType: Progress NotesFiled: 11/24/2016 12:36 AMNote Text:[facility] Servicesadiation Oncology DepartmentRADIATION ONCOLOGY - COMPLETION NOTEPATIENT: PARK GUIDRYJANI: 1940DATES OF TREATMENT: 10/18/16-DIAGNOSIS : Prostate adenocarcinoma, 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, biopsy Gleasonscore 4 + 3 = 7 (grade group 3), clinical stage IIB [id number] AREATREATED: Pelvis/ProstateDELIVERED DOSE: Pelvis/Prostate:4,500cGy in 25 fractions, 3 Vivas, IMRT, 6MVTOTAL: 4,500cGyELAPSED TIME: 32 days.CLINICAL SUMMARY: Patient completed a course of intensity modulatedexternal beam treatment for adenocarcinoma of the prostate with plannedupcoming prostate brachytherapy boost. Patient's tolerance to externalbeam treatment was very good. He did develop mild to moderate urinaryurgency and frequency but no other significant problems during the courseof treatment. Volume study scheduled 12/07/16 and interstitial prostateimplant [facility].Electronically SignedKeyshawn Pagan M.D. / CDT12:20 [facility]c:Dr. WatersDr. Dunn [facility] CNOVon 11-15-2016 CNOV Office Visit (RADTSA) OUSMANE GUIDRY ([id number]) 1940 MDate Time Provider Wcxfdfmouh20/9/17 9:00 AM Marylou PAGAN During your visit today, we recorded the following information about you: Blood pressure Weight 142/82 91.9 kgG Keyshawn Pagan MD 11/15/2016 10:14 AM SignedRadiation Oncology - On Treatment Review (OTR) NotePATIENT NAME: Park Aldrich :Prostate cancer (HCC) - ICD9: 185, ICD10: U27Bhpeyrms adenocarcinoma, 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, ?biopsy Pj score 4 + 3 = 7(grade group 3), ?clinical stage IIB [id number], s/p TRUS-biopsy?COURSE: DefinitiveCurrent dose: 3780 cGy in 21 fxPlanned dose: 4,500 cGy in 25 fx planned brachy boost.SUBJECTIVE: Park Guidry is here for his weekly radiation check. He hasintermittent urgency. No significant dysuria although mild sensation ofdiscomfort. No hematuria. Bowel stable. He is tolerating radiationtreatments well.PHYSICAL EXAM:KPS: 100General Appearance: Alert and oriented. No acute distress.IMAGING/LAB RESULTS:Hemoglobin (g/dL)Date Value11/11/2016 14.3 Hematocrit (%)Date Value11/11/2016 41.8 WBC (k/uL)Date Value11/11/2016 5.13 Platelet Count (k/uL)Date Value11/11/2016 112 TOXICITY ASSESSMENT (CTC v4.0):Fatigue: grade 1Radiation dermatitis: grade 0 - No symptomsDiarrhea:grade 1Proctitis: grade 0 - No symptomsUrinary frequency: grade 1Dysuria: grade 1Urinary incontinence: grade 0 - No symptomsUrinary retention: grade 1ASSESSMENT/PLAN: Patient doing well. He will finish this week. Discussedupcoming implant in volume study. Chart and imaging reviewed. Continueradiation as outlined.Judy Schafferergies As of Date: 11/15/2016(No Known Allergies)Date Reviewed: 11/15/2016Reviewed by: Phoebe NunezRn) LAQUITA Segura - Fully AssessedReason for Visit: Radiotherapy On-treatment Visit [1722]Primary Visit Diagnosis:Prostate cancer (HCC) [C61]Prescriptions as of 11/15/2016 Sig: ALPRAZOLAM 0.25 MG TABLET MELOXICAM 15 MG TABLET DOXAZOSIN 2 MG TABLETProblem List As Of Date 11/15/2016 Noted Resolved Prostate cancer (HCC) [C61] INVALID FOR* Status:Closed by Marylou PAGAN MD on 11/15/16 Normal [facility] PROGRESSon 11-15-2016 Protein HNO ID: [id number] thor: Marylou Lovellervice: (none)Author Type: PhysicianType: Progress NotesFiled: 11/15/2016 10:14 AMNote Text:Radiation Oncology - On Treatment Review (OTR) NotePATIENT NAME: Park Aldrich :Prostate cancer (HCC) - ICD9: 185, ICD10: R69Reiugctt adenocarcinoma, 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, ?biopsy Pj score 4 + 3 =7 (grade group 3), ?clinical stage IIB [id number], s/p TRUS-biopsy?COURSE: DefinitiveCurrent dose: 3780 cGy in 21 fxPlanned dose: 4,500 cGy in 25 fx planned brachy boost.SUBJECTIVE: Park Guidry is here for his weekly radiation check. Hehas intermittent urgency. No significant dysuria although mild sensationof discomfort. No hematuria. Bowel stable. He is tolerating radiationtreatments well.PHYSICAL EXAM:KPS: 100General Appearance: Alert and oriented. No acute distress.IMAGING/LAB RESULTS:Hemoglobin (g/dL)Date Value11/11/2016 14.3 Hematocrit (%)Date Value11/11/2016 41.8 WBC (k/uL)Date Value11/11/2016 5.13 Platelet Count (k/uL)Date Value11/11/2016 112 TOXICITY ASSESSMENT (CTC v4.0):Fatigue: grade 1Radiation dermatitis: grade 0 - No symptomsDiarrhea:grade 1Proctitis: grade 0 - No symptomsUrinary frequency: grade 1Dysuria: grade 1Urinary incontinence: grade 0 - No symptomsUrinary retention: grade 1ASSESSMENT/PLAN: Patient doing well. He will finish this week. Discussedupcoming implant in volume study. Chart and imaging reviewed. Continueradiation as outlined.Marylou Pagan MD [facility] CNOVon 11-11-2016 CNOV Office Visit (RADTSA) OUSMANE GUIDRY ([id number]) 1940 MDate Time Provider Vqskxhwohg53/5/17 8:45 AM LAB/PORT RADT MONI MCKENZIE During your visit today, we recorded the following information about you:James Rowell LPN, LAQUITA 11/11/2016 9:08 AM Dwight Guidry presents in office today for: Lab Draw only .Ordering Provider: Alvarado Pagan M.D.Test (s) ordered:CBCMethod for obtaining blood: Phlebotomy was performed, accessing leftantecubital vein.Needle removed intact. Dressing secured.Patient denies discomfort, dizziness, light-headedness or weakness and left thedepartment without assist.James Rowell LPNReferring Provider: SELF [[id number]]Allergies As of Date: 11/11/2016(No Known Allergies)Date Reviewed: 11/08/2016Reviewed by: James Rowell RN - Fully AssessedReason for Visit: Phlebotomy [1172]Primary Visit Diagnosis:Prostate cancer (HCC) [C61]Prescriptions as of 11/11/2016 Sig: ALPRAZOLAM 0.25 MG TABLET MELOXICAM 15 MG TABLET DOXAZOSIN 2 MG TABLETProblem List As Of Date 11/11/2016 Noted Resolved Prostate cancer (HCC) [C61] INVALID FOR*Visit Notes:>> James Rowell RN Anali Nov 11, 2016 9:06 AM Status: Dwight Guidry presents in office today for: Lab Draw only .Ordering Provider: Alvarado Pagan M.D.Test (s) ordered:CBCMethod for obtaining blood: Phlebotomy was performed, accessing leftantecubital vein.Needle removed intact. Dressing secured.Patient denies discomfort, dizziness, light-headedness or weakness andleft the department without assist.Domo Nguyễner Number: [id number] Status:Closed by JAMES ROWELL on 11/11/16 Normal [facility] Remote Abs Gran + CBC (for F HC use only)on 11-11-2016 Absol Gran Count 3.36 k/uL Normal 1.45-7.[address] [facility] Erythrocyte distribution width Auto Ratio (RBC) 13.8 % Normal 11.5-15.0 [facility] Erythrocytes (RBC) 4.71 10*6/uL Normal 4.20-6.00 [facility] Hematocrit (HCT) 41.8 % Normal 39.0-51.[address] [facility] Hemoglobin mass conc (Bld) 14.3 g/dL Normal 13.0-17.0 [facility] MCH 30.4 pG Normal 26.0-34.0 [facility] MCHC mass conc (RBC) 34.2 g/dL Normal 30.5-36.0 [facility] MCV 88.7 fL Normal 80.0-100.0 [facility] Platelet mean volume (PMV) 12.0 fL Normal 9.0-12.7 [facility] Platelets 112 10*3/uL Low 150-400 [facility] WBC (Leukocytes) 5.13 10*3/uL Normal 3.70-11.00 [facility] CNOVon 11-08-2016 CNOV Office Visit (RADTSA) OUSMANE GUIDRY ([id number]) 1940 MDate Time Provider Egcojyeweb32/2/17 9:00 AM Marylou PAGAN During your visit today, we recorded the following information about you: Blood pressure Weight 126/80 92.1 kgG Keyshawn Pagan MD 11/08/2016 1:58 PM SignedRadiation Oncology - On Treatment Review (OTR) NotePATIENT NAME: Park Aldrich :Prostate cancer (HCC) - ICD9: 185, ICD10: I25Jpbrayiz adenocarcinoma, 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, ?biopsy [place] score 4 + 3 = 7(grade group 3), ?clinical stage IIB G7yH3L2, s/p TRUS-biopsy?COURSE: DefinitiveCurrent dose: 2880 cGy in 16 fxPlanned dose: 4,500 cGy in 25 fx planned brachy boost.SUBJECTIVE: Park Guidry is here for his weekly radiation check. He istolerating radiation treatments well. He is having some increased urinaryfrequency. 2 episodes of diarrhea over the last 2 weeks. PHYSICAL EXAM:KPS: 100General Appearance: Alert and oriented. No acute distress.IMAGING/LAB RESULTS:Hemoglobin (g/dL)Date Value10/28/2016 14.6 Hematocrit (%)Date Value10/28/2016 43.4 WBC (k/uL)Date Value10/28/2016 6.89 Platelet Count (k/uL)Date Value10/28/2016 136 TOXICITY ASSESSMENT (CTC v4.0):Fatigue: grade 1Radiation dermatitis: grade 0 - No symptomsDiarrhea:grade 1Proctitis: grade 0 - No symptomsUrinary frequency: grade 1Dysuria: grade 0 - No symptomsUrinary incontinence: grade 0 - No symptomsUrinary retention: grade 1ASSESSMENT/PLAN: Patient doing well. Discussed continued use of Flomax.Discussed dietary issues for diarrhea. Chart and imaging reviewed. Continueradiation as outlined.Judy Schafferergies As of Date: 11/08/2016(No Known Allergies)Date Reviewed: 11/08/2016Reviewed by: James Rowell RN - Fully AssessedReason for Visit: Radiotherapy On-treatment Visit [1722]Primary Visit Diagnosis:Prostate cancer (HCC) [C61]Prescriptions as of 11/08/2016 Sig: ALPRAZOLAM 0.25 MG TABLET MELOXICAM 15 MG TABLET DOXAZOSIN 2 MG TABLETProblem List As Of Date 11/08/2016 Noted Resolved Prostate cancer (HCC) [C61] INVALID FOR* Status:Closed by Marylou PAGAN MD on 11/08/16 Normal [facility] PROGRESSon 11-08-2016 Protein HNO ID: [id number] thor: Marylou Lovellervice: (none)Author Type: PhysicianType: Progress NotesFiled: 11/08/2016 1:58 PMNote Text:Radiation Oncology - On Treatment Review (OTR) NotePATIENT NAME: Park Aldrich :Prostate cancer (HCC) - ICD9: 185, ICD10: A67Thjnbksq adenocarcinoma, 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, ?biopsy [place] score 4 + 3 =7 (grade group 3), ?clinical stage IIB N1sN0A8, s/p TRUS-biopsy?COURSE: DefinitiveCurrent dose: 2880 cGy in 16 fxPlanned dose: 4,500 cGy in 25 fx planned brachy boost.SUBJECTIVE: Park Guidry is here for his weekly radiation check. Heis tolerating radiation treatments well. He is having some increasedurinary frequency. 2 episodes of diarrhea over the last 2 weeks.PHYSICAL EXAM:KPS: 100General Appearance: Alert and oriented. No acute distress.IMAGING/LAB RESULTS:Hemoglobin (g/dL)Date Value10/28/2016 14.6 Hematocrit (%)Date Value10/28/2016 43.4 WBC (k/uL)Date Value10/28/2016 6.89 Platelet Count (k/uL)Date Value10/28/2016 136 TOXICITY ASSESSMENT (CTC v4.0):Fatigue: grade 1Radiation dermatitis: grade 0 - No symptomsDiarrhea:grade 1Proctitis: grade 0 - No symptomsUrinary frequency: grade 1Dysuria: grade 0 - No symptomsUrinary incontinence: grade 0 - No symptomsUrinary retention: grade 1ASSESSMENT/PLAN: Patient doing well. Discussed continued use of Flomax.Discussed dietary issues for diarrhea. Chart and imaging reviewed.Continue radiation as outlined.Marylou Pagan MD [facility] PROGRESSon 11-02-2016 Protein HNO ID: [id number] thor: Chino (Jammer Hooker) Zahida: (none)Author Type: Nurse PractitionerType: Progress NotesFiled: 11/02/2016 2:04 PMNote Text:Radiation Oncology - On Treatment Review (OTR) NotePATIENT NAME: Park Aldrich :Prostate cancer (HCC) - ICD9: 185, ICD10: T51Culiaefw adenocarcinoma, 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, ?biopsy [place] score 4 + 3 =7 (grade group 3), ?clinical stage IIB [id number], s/p TRUS-biopsy?COURSE: DefinitiveCurrent dose: 1,980 cGy in 11 fxPlanned dose: 4,500 cGy in 25 fxSUBJECTIVE: Park Guidry is here for his weekly radiation check. Heis tolerating radiation treatments well. He feels well and offers noparticular complaints. There has been no changes since starting radiationtreatments.PHYSIC AL EXAM:KPS: 100General Appearance: Alert and oriented. No acute distress.IMAGING/LAB RESULTS:Hemoglobin (g/dL)Date Value10/28/2016 14.6 Hematocrit (%)Date Value10/28/2016 43.4 WBC (k/uL)Date Value10/28/2016 6.89 Platelet Count (k/uL)Date Value10/28/2016 136 TOXICITY ASSESSMENT (CTC v4.0):Fatigue: grade 0 - No symptomsRadiation dermatitis: grade 0 - No symptomsDiarrhea:grade 0 - No symptomsProctitis: grade 0 - No symptomsUrinary frequency: grade 0 - No symptomsDysuria: grade 0 - No symptomsUrinary incontinence: grade 0 - No symptomsUrinary retention: grade 0 - No symptomsASSESSMENT/PLAN: Clinically stable. No signs of toxicity. Continueradiation treatment as planned.Dr. Bob Liu was present during the patient encounter and participateddirectly with care coordination and treatment planning.Chino Mcginnis CNP [facility] CNOVon 11-01-2016 CNOV Office Visit (RADTSA) OUSMANE GUIDRY ([id number]) 1940 MDate Time Provider Department11/01/16 9:00 AM BOB LIU During your visit today, we recorded the following information about you: Blood pressure Weight 134/74 92.5 kgChino Mcginnis CNP 11/02/2016 2:04 PM SignedRadiation Oncology - On Treatment Review (OTR) NotePATIENT NAME: Park Aldrich :Prostate cancer (HCC) - ICD9: 185, ICD10: V43Rbpccfpq adenocarcinoma, 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, ?biopsy Pj score 4 + 3 = 7(grade group 3), ?clinical stage IIB A9tP5U2, s/p TRUS-biopsy?COURSE: DefinitiveCurrent dose: 1,980 cGy in 11 fxPlanned dose: 4,500 cGy in 25 fxSUBJECTIVE: Park Guidry is here for his weekly radiation check. He istolerating radiation treatments well. He feels well and offers no particularcomplaints. There has been no changes since starting radiation treatments.PHYSICAL EXAM:KPS: 100General Appearance: Alert and oriented. No acute distress.IMAGING/LAB RESULTS:Hemoglobin (g/dL)Date Value10/28/2016 14.6 Hematocrit (%)Date Value10/28/2016 43.4 WBC (k/uL)Date Value10/28/2016 6.89 Platelet Count (k/uL)Date Value10/28/2016 136 TOXICITY ASSESSMENT (CTC v4.0):Fatigue: grade 0 - No symptomsRadiation dermatitis: grade 0 - No symptomsDiarrhea:grade 0 - No symptomsProctitis: grade 0 - No symptomsUrinary frequency: grade 0 - No symptomsDysuria: grade 0 - No symptomsUrinary incontinence: grade 0 - No symptomsUrinary retention: grade 0 - No symptomsASSESSMENT/PLAN: Clinically stable. No signs of toxicity. Continue radiationtreatment as planned.Dr. Bob Liu was present during the patient encounter and participateddirectly with care coordination and treatment planning.Chino Mcginnis CNPAllergies As of Date: 11/01/2016(No Known Allergies)Date Reviewed: 11/01/2016Reviewed by: Phoebe (Rn) LAQUITA Segura - Fully AssessedReason for Visit: Radiotherapy On-treatment Visit [1722]Primary Visit Diagnosis:Prostate cancer (HCC) [C61]Prescriptions as of 11/01/2016 Sig: ALPRAZOLAM 0.25 MG TABLET MELOXICAM 15 MG TABLET DOXAZOSIN 2 MG TABLETProblem List As Of Date 11/01/2016 Noted Resolved Prostate cancer (HCC) [C61] INVALID FOR* Status:Closed by CHINO MCGINNIS CNP on 11/02/16 [facility] CNOVon 10-28-2016 CNOV Office Visit (RADTSA) OUSMANE GUIDRY ([id number]) 1940 MDate Time Provider Department10/28/16 1:10 PM LAB/PORT АЛЕКСАНДРT MONI CREWSMelita During your visit today, we recorded the following information about you:Phoebe Segura RN, RN 10/28/2016 1:18 PM Dwight Guidry presents in office today for: Lab Draw during Office Visit .Ordering Provider: Keyshawn Pagan M.D.Test (s) ordered:CBCMethod for obtaining blood: Phlebotomy was performed, accessing leftantecubital vein.Needle removed intact. Dressing secured.Patient denies discomfort, dizziness, light-headedness or weakness and left thedepartment without assist.Phoebe Segura RNReferring Provider: SELF [[id number]]Allergies As of Date: 10/28/2016(No Known Allergies)Date Reviewed: 10/25/2016Reviewed by: Phoebe Segura RN - Fully AssessedReason for Visit: Phlebotomy [1172]Primary Visit Diagnosis:Prostate cancer (HCC) [C61]Prescriptions as of 10/28/2016 Sig: ALPRAZOLAM 0.25 MG TABLET MELOXICAM 15 MG TABLET DOXAZOSIN 2 MG TABLETProblem List As Of Date 10/28/2016 Noted Resolved Prostate cancer (HCC) [C61] INVALID FOR*Visit Notes:>> Phoebe Segura RN [facility] Oct 28, 2016 1:16 PM Status: Dwight Guidry presents in office today for: Lab Draw during OfficeVisit .Ordering Provider: Keyshawn Pagan M.D.Test (s) ordered:CBCMethod for obtaining blood: Phlebotomy was performed, accessing leftantecubital vein.Needle removed intact. Dressing secured.Patient denies discomfort, dizziness, light-headedness or weakness andleft the department without assist.Phoebe Segura RNEncounter Number: [id number] Status:Closed by PHOEBE SEGURA on 10/28/16 Normal [facility] Remote Abs Gran + CBC (for F HC use only)on 10-28-2016 Absol Gran Count 5.02 k/uL Normal 1.45-7.[address] [facility] Erythrocyte distribution width Auto Ratio (RBC) 13.6 % Normal 11.5-15.0 [facility] Erythrocytes (RBC) 4.90 10*6/uL Normal 4.20-6.00 [facility] Hematocrit (HCT) 43.4 % Normal 39.0-51.[address] [facility] Hemoglobin mass conc (Bld) 14.6 g/dL Normal 13.0-17.0 [facility] MCH 29.8 pG Normal 26.0-34.0 [facility] MCHC mass conc (RBC) 33.6 g/dL Normal 30.5-36.0 [facility] MCV 88.6 fL Normal 80.0-100.0 [facility] Platelet mean volume (PMV) 12.0 fL Normal 9.0-12.7 [facility] Platelets 136 10*3/uL Low 150-400 [facility] WBC (Leukocytes) 6.89 10*3/uL Normal 3.70-11.00 [facility] PROGRESSon 10-26-2016 Protein HNO ID: [id number] thor: Marylou Matamorosice: (none)Author Type: PhysicianType: Progress NotesFiled: 10/26/2016 2:43 PMNote Text:Radiation Oncology - On Treatment Review (OTR) NotePATIENT NAME: Park Aldrich : Prostate adenocarcinoma, 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, biopsy Gleasonscore 4 + 3 = 7 (grade group 3), clinical stage IIB [id number], s/pTRUS-biopsyCOURSE: definitiveCurrent dose: 1080 cGy in 6 fxPlanned dose: 4500 cGy in 4500 fxSUBJECTIVE: Doing well.No results found for: HB, HCT, WBC, PLTPHYSICAL EXAM:KPS: 100General Appearance: Alert and oriented. No acute distress.IMAGING/LAB RESULTS: NoneTOXICITY ASSESSMENT (CTC v4.0):Fatigue:grade 0 - No symptomsRadiation Dermatitis: grade 0 - No symptomsDiarrhea:grade 0 - No symptomsProctitis: grade 0 - No symptomsUrinary frequency: grade 1Dysuria: grade 0 - No symptomsUrinary incontinence: grade 0 (No symptoms)Urinary retention: grade 0 - No symptomsTreatment chart checked: YesPatient treatment site reviewed and verified:YesPort films reviewed and current:YesMedications started: NoneASSESSMENT/PLAN: Patient doing well. Chart and imaging reviewed.Continue radiation as outlined.Marylou Pagan MD [facility] CNOVon 10-25-2016 CNOV Office Visit (RADTSA) OUSMANE GUIDRY ([id number]) 1940 MDate Time Provider Department10/25/16 1:15 PM Marylou PAGAN During your visit today, we recorded the following information about you: Blood pressure Weight 142/68 92.4 kgG Keyshawn Pagan MD 10/26/2016 2:43 PM SignedRadiation Oncology - On Treatment Review (OTR) NotePATIENT NAME: Park Aldrich : Prostate adenocarcinoma, 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, biopsy Pj score 4+ 3 = 7 (grade group 3), clinical stage IIB U2fL0R2, s/p TRUS-biopsyCOURSE: definitiveCurrent dose: 1080 cGy in 6 fxPlanned dose: 4500 cGy in 4500 fxSUBJECTIVE: Doing well.No results found for: HB, HCT, WBC, PLTPHYSICAL EXAM:KPS: 100General Appearance: Alert and oriented. No acute distress.IMAGING/LAB RESULTS: NoneTOXICITY ASSESSMENT (CTC v4.0):Fatigue:grade 0 - No symptomsRadiation Dermatitis: grade 0 - No symptomsDiarrhea:grade 0 - No symptomsProctitis: grade 0 - No symptomsUrinary frequency: grade 1Dysuria: grade 0 - No symptomsUrinary incontinence: grade 0 (No symptoms)Urinary retention: grade 0 - No symptomsTreatment chart checked: YesPatient treatment site reviewed and verified:YesPort films reviewed and current:YesMedications started: NoneASSESSMENT/PLAN: Patient doing well. Chart and imaging reviewed. Continueradiation as outlined.Judy Schafferergies As of Date: 10/25/2016(No Known Allergies)Date Reviewed: 10/25/2016Reviewed by: Phoebe (Rn) LAQUITA Segura - Fully AssessedReason for Visit: Radiotherapy On-treatment Visit [1722]Primary Visit Diagnosis:Prostate cancer (HCC) [C61]Prescriptions as of 10/25/2016 Sig: ALPRAZOLAM 0.25 MG TABLET MELOXICAM 15 MG TABLET DOXAZOSIN 2 MG TABLETProblem List As Of Date 10/25/2016 Noted Resolved Prostate cancer (HCC) [C61] INVALID FOR* Status:Closed by Marylou PAGAN MD on 10/26/16 [facility] CNOVon 10-18-2016 CNOV Office Visit (RADTSA) OUSMANE GUIDRY ([id number]) 1940 [facility] Time Provider Department10/18/16 9:30 AM Marylou PAGAN During your visit today, we recorded the following information about you: Blood pressure Weight 122/78 91.6 kgG Keyshawn Pagan MD 10/18/2016 10:40 AM SignedRadiation Oncology - On Treatment Review (OTR) NotePATIENT NAME: Park Aldrich : Prostate adenocarcinoma, 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, biopsy Pj score 4+ 3 = 7 (grade group 3), clinical stage IIB G2jD7K4, s/p TRUS-biopsyCOURSE: definitiveCurrent dose: 180 cGy in 25 fxPlanned dose: 4500 cGy in 4500 fxSUBJECTIVE: Here to start radiation, doing well.PHYSICAL EXAM:KPS: 100General Appearance: Alert and oriented. No acute distress.IMAGING/LAB RESULTS: NoneTOXICITY ASSESSMENT (CTC v4.0):Fatigue:grade 0 - No symptomsRadiation Dermatitis: grade 0 - No symptomsDiarrhea:grade 0 - No symptomsProctitis: grade 0 - No symptomsUrinary frequency: grade 0 - No symptomsDysuria: grade 0 - No symptomsUrinary incontinence: grade 0 (No symptoms)Urinary retention: grade 0 - No symptomsTreatment chart checked: YesPatient treatment site reviewed and verified:YesPort films reviewed and current:YesMedications started: NoneASSESSMENT/PLAN: Patient starting radiation today. Plan of care andexpectations again reviewed. Plan, MU calculations and qa report reviewed.Initial imaging including cone beam ct and verification reviewed and approved.First treatment given. Continue radiation as prescribed.Cuauhtemoc Schaffer Provider: Marylou PAGAN [[id number]]Allergies As of Date: 10/18/2016(No Known Allergies)Date Reviewed: 10/18/2016Reviewed by: James Rowell RN - Fully AssessedReason for Visit: Radiotherapy On-treatment Visit [1722]Primary Visit Diagnosis:Malignant neoplasm of prostate (HCC) [C61]Prescriptions as of 10/18/2016 Sig: ALPRAZOLAM 0.25 MG TABLET MELOXICAM 15 MG TABLET DOXAZOSIN 2 MG TABLETProblem List As Of Date 10/18/2016 Noted Resolved Prostate cancer (HCC) [C61] INVALID FOR* Status:Closed by Marylou PAGAN MD on 10/18/16 [facility] PROGRESSon 10-18-2016 Protein HNO ID: [id number] thor: Marylou Lovellervice: (none)Author Type: PhysicianType: Progress NotesFiled: 10/18/2016 10:40 AMNote Text:Radiation Oncology - On Treatment Review (OTR) NotePATIENT NAME: Park Aldrich : Prostate adenocarcinoma, 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, biopsy Gleasonscore 4 + 3 = 7 (grade group 3), clinical stage IIB [id number], s/pTRUS-biopsyCOURSE: definitiveCurrent dose: 180 cGy in 25 fxPlanned dose: 4500 cGy in 4500 fxSUBJECTIVE: Here to start radiation, doing well.PHYSICAL EXAM:KPS: 100General Appearance: Alert and oriented. No acute distress.IMAGING/LAB RESULTS: NoneTOXICITY ASSESSMENT (CTC v4.0):Fatigue:grade 0 - No symptomsRadiation Dermatitis: grade 0 - No symptomsDiarrhea:grade 0 - No symptomsProctitis: grade 0 - No symptomsUrinary frequency: grade 0 - No symptomsDysuria: grade 0 - No symptomsUrinary incontinence: grade 0 (No symptoms)Urinary retention: grade 0 - No symptomsTreatment chart checked: YesPatient treatment site reviewed and verified:YesPort films reviewed and current:YesMedications started: NoneASSESSMENT/PLAN: Patient starting radiation today. Plan of care andexpectations again reviewed. Plan, MU calculations and qa reportreviewed. Initial imaging including cone beam ct and verificationreviewed and approved. First treatment given. Continue radiation asprescribed.Marylou Pagan MD [facility] CT NON-RADIOLOGY -NBNRo n 10-12-[address] [facility] [address] NON-RADIOLOGY -[facility] - CT Images - Obtained Outside of Imaging [place] [id number] [facility] CNOVon 10-12-2016 CNOV Office Visit (RADTSA) OUSMANE GUIDRY ([id number]) 1940 MDate Time Provider Department10/12/16 2:30 PM Marylou PAGAN RADTSA During your visit today, we recorded the following information about you:Referring Provider: Marylou PAGAN [[id number]]Allergies As of Date: 10/12/2016(No Known Allergies)Date Reviewed: 10/12/2016Reviewed by: Phoebe (Rn) LAQUITA Segura - Fully AssessedPrimary Visit Diagnosis:Cancer of prostate w/med recur risk (T2b-c or [place] 7 or PSA 10-20) (HCC) [C61] Other Visit Diagnosis:Malignant neoplasm of prostate (HCC) [C61]Order(s):CT SIM PLANNING RADIATION ONCOLOGY [[id number]] Order #: [id number] RADIATION TREATMENT PER RADIATION ONCOLOGIST PLAN [[id number]] Order #: [id number]: 1Prescriptions as of 10/12/2016 Sig: ALPRAZOLAM 0.25 MG TABLET MELOXICAM 15 MG TABLET DOXAZOSIN 2 MG TABLETProblem List As Of Date 10/12/2016 Noted Resolved Prostate cancer (HCC) [C61] INVALID FOR* Status:Closed by Marylou PAGAN MD on 10/13/16 [facility] CNOV Office Visit (RADTSA) OUSMANE GUIDRY ([id number]) 1940 MDate Time Provider Department10/12/16 2:00 PM Marylou PAGAN During your visit today, we recorded the following information about you: Blood pressure Weight 146/76 91.9 kgG Keyshawn Pagan MD 10/15/2016 10:10 AM SignedRadiation Oncology - Follow-Up NotePATIENT NAME: Park Aldrich PROVIDER: Dr. GarciaDIAGNOSIS: 76 year old male with prostate adenocarcinoma, 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,biopsy [place] score 4 + 3 = 7 (grade group 3), clinical stage IIB C6iE2V7,s/p TRUS-biopsyHPI: Here today after staging studies as well as colonoscopy. Overall doingwell denies new problems. Denies any bladder or bowel changes. Specificallyno blood per rectum. No pain in the abdomen or pelvic area.Bone scan 10/04/16: Focal activity right ankle no other significant areas ofuptake no evidence of metastatic processCT abdomen and pelvis 10/04/16 Concentric wall thickening distal sigmoid colonnotable. Enlarged heterogeneous prostate gland. No lymphadenopathy. No othersuspicious findings.Colonoscopy 10/08/16 unremarkable study. One small polyp removed. Sigmoid andrectal area without abnormalities.Prior radiation therapy, collagen vascular disease, or inflammatory boweldisease: NoCurrently on anticoagulation: NoHistory of hip replacement: NoHistory of prior TURP: NoALLERGIESNo Known AllergiesALPRAZolam (XANAX) 0.25 mg tabletmeloxicam (MOBIC) 15 mg tabletdoxazosin (CARDURA) 2 mg tabletPAST MEDICAL HISTORYDiagnosis Date- ArthritisPAST SURGICAL HISTORYProcedure Laterality Date- ARTHROPLASTY KNEE MEDIAL OR LAT COMPART BilateralNo family history on file.Social HistorySubstance Use Topics- Smoking status: Never Smoker- Smokeless tobacco: Not on file- Alcohol use Not on fileREVIEW OF SYSTEMS:GENERAL: Negative for weight loss, fevers, chills, or night sweats.HEENT: Negative for sudden vision or hearing changes.NECK: Negative for masses in the neck.RESPIRATORY: Negative for cough or shortness of breath.CARDIAC: Negative for chest pain, palpitations, murmurs, or syncopal episodes.GI: See HPIGU: See HPIMUSCULOSKELETAL: Negative for limitations in movement, pain, or swelling.NEURO: Negative for dizziness, headache, weakness or numbness.HEMATOLOGIC: Negative for bleeding or easy bruising.SKIN: Negative for rashes or other skin changes.PHYSICAL EXAM:VS: BP 146/76 Wt 91.9 kg (202 lb 9.6 oz) BMI 31.03 kg/m2KPS: 100General Appearance: Alert and oriented. No acute distress.HEENT: NCAT. Sclera anicteric. PERRL. EOMI.Neck: Normal ROM. No palpable cervical or supraclavicular adenopathy.Chest: No respiratory distress. Lungs clear to auscultation bilaterally.Heart: Regular rate and rhythm.Abdomen: Soft. Nontender. Nondistended.Musculoskelet al: No edema. Normal ROM in extremities. No bone or spinetenderness.Neuro: Strength intact and symmetric. Sensation intact. CN II-XII intact. Gaitnormal. No focal deficits.Skin: No rashes notedLymphatics: No palpable lymphadenopathy.: Normal, descended testicles bilaterally without nodularity or tendernessRectal: Asymmetric firm area right mid gland no tendernessRADIOLOGY/LABORA TORY DATA: see HPIASSESSMENT/PLAN: Prostate adenocarcinoma, 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, biopsy Gleasonscore 4 + 3 = 7 (grade group 3), clinical stage IIB N5tT6G2, s/p TRUS-biopsyStaging study without evidence of metastatic process. Questionable area on CTwithin sigmoid area likely incidental. Colonoscopy negative. Plan to proceedwith radiation treatment. Patient is already started androgen deprivationtherapy. Plan on a pelvic field including prostate and pelvic lymphatics to adose of 4500 cGy followed by brachytherapy prostate boost.Simulation will be done today. Risks benefits rationale again discussed withpatient. Consent form obtained.Signed by: Marylou Pagan, [facility]:Alpesh Dunn MD ([facility])[address] [place] [address]Gspsn: [phone]: [phone] Provider: Marylou PAGAN [[id number]]Allergies As of Date: 10/12/2016(No Known Allergies)Date Reviewed: 10/12/2016Reviewed by: Phoebe (Rn) LAQUITA Segura - Fully AssessedReason for Visit: Prostate Cancer [590]Primary Visit Diagnosis:Prostate cancer (HCC) [C61]Prescriptions as of 10/12/2016 Sig: ALPRAZOLAM 0.25 MG TABLET MELOXICAM 15 MG TABLET DOXAZOSIN 2 MG TABLETProblem List As Of Date 10/12/2016 Noted Resolved Prostate cancer (HCC) [C61] INVALID FOR* Status:Closed by Marylou PAGAN MD on 10/15/16 Normal [facility] PROGRESSon 10-12-2016 Protein HNO ID: [id number] thor: Marylou Lovellervice: (none)Author Type: PhysicianType: Progress NotesFiled: 10/15/2016 10:10 AMNote Text:Radiation Oncology - Follow-Up NotePATIENT NAME: Park Aldrich PROVIDER: Dr. GarciaDIAGNOSIS: 76 year old male with prostate adenocarcinoma, initial PSA35.73, biopsy Pj score 4 + 3 = 7 (grade group 3), clinical stageIIB [id number], s/p TRUS-biopsyHPI: Here today after staging studies as well as colonoscopy. Overalldoing well denies new problems. Denies any bladder or bowel changes.Specifically no blood per rectum. No pain in the abdomen or pelvic area.Bone scan 10/04/16: Focal activity right ankle no other significant areasof uptake no evidence of metastatic processCT abdomen and pelvis 10/04/16 Concentric wall thickening distal sigmoidcolon notable. Enlarged heterogeneous prostate gland. Nolymphadenopathy. No other suspicious findings.Colonoscopy 10/08/16 unremarkable study. One small polyp removed. Sigmoidand rectal area without abnormalities.Prior radiation therapy, collagen vascular disease, or inflammatory boweldisease: NoCurrently on anticoagulation: NoHistory of hip replacement: NoHistory of prior TURP: NoALLERGIESNo Known AllergiesALPRAZolam (XANAX) 0.25 mg tabletmeloxicam (MOBIC) 15 mg tabletdoxazosin (CARDURA) 2 mg tabletPAST MEDICAL HISTORYDiagnosis Date- ArthritisPAST SURGICAL HISTORYProcedure Laterality Date- ARTHROPLASTY KNEE MEDIAL OR LAT COMPART BilateralNo family history on file.Social HistorySubstance Use Topics- Smoking status: Never Smoker- Smokeless tobacco: Not on file- Alcohol use Not on fileREVIEW OF SYSTEMS:GENERAL: Negative for weight loss, fevers, chills, or night sweats.HEENT: Negative for sudden vision or hearing changes.NECK: Negative for masses in the neck.RESPIRATORY: Negative for cough or shortness of breath.CARDIAC: Negative for chest pain, palpitations, murmurs, or syncopalepisodes.GI: See HPIGU: See HPIMUSCULOSKELETAL: Negative for limitations in movement, pain, or swelling.NEURO: Negative for dizziness, headache, weakness or numbness.HEMATOLOGIC: Negative for bleeding or easy bruising.SKIN: Negative for rashes or other skin changes.PHYSICAL EXAM:VS: BP 146/76 Wt 91.9 kg (202 lb 9.6 oz) BMI 31.03 kg/m2KPS: 100General Appearance: Alert and oriented. No acute distress.HEENT: NCAT. Sclera anicteric. PERRL. EOMI.Neck: Normal ROM. No palpable cervical or supraclavicular adenopathy.Chest: No respiratory distress. Lungs clear to auscultation bilaterally.Heart: Regular rate and rhythm.Abdomen: Soft. Nontender. Nondistended.Musculoskelet al: No edema. Normal ROM in extremities. No bone or spinetenderness.Neuro: Strength intact and symmetric. Sensation intact. CN II-XII intact.Gait normal. No focal deficits.Skin: No rashes notedLymphatics: No palpable lymphadenopathy.: Normal, descended testicles bilaterally without nodularity ortendernessRectal: Asymmetric firm area right mid gland no tendernessRADIOLOGY/LABORA TORY DATA: see HPIASSESSMENT/PLAN: Prostate adenocarcinoma, 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, biopsyGleason score 4 + 3 = 7 (grade group 3), clinical stage IIB K8aV0V9, s/pTRUS-biopsyStaging study without evidence of metastatic process. Questionable areaon CT within sigmoid area likely incidental. Colonoscopy negative. Planto proceed with radiation treatment. Patient is already started androgendeprivation therapy. Plan on a pelvic field including prostate and pelviclymphatics to a dose of 4500 cGy followed by brachytherapy prostate boost.Simulation will be done today. Risks benefits rationale again discussedwith patient. Consent form obtained.Signed by: Marylou Pagan, [facility]:Alpesh Dunn MD (C)[address] [place] [address]Rezgp: [phone]: [phone] [facility] Protein HNO ID: [id number] thor: Marylou Lovellervice: (none)Author Type: PhysicianType: Progress NotesFiled: 10/13/2016 12:34 AMNote Text:PARK [id number]/06/2016CleAden[facility] SandgallionyRadiation Oncology DepartmentSIMULATION NOTEDATE OF SIMULATION: 10/12/2016THERAPIST: Melba Prasad: Babak SimulatorDIAGNOSIS: Malignant neoplasm of [id number]: ProstateCONTRAST: n/aConsent in Epic: yesPATIENT POSITION: Supine.FIXATION DEVICE: In order to achieve accurate and reproducible treatments,the patient is immobilized with sbrt knee sponge and foot bolsterA time-out was conducted and recorded by the therapist. CT scan wascompleted for target localization and planning. Field arrangement willbe determined after plan has been completed.The patient is scheduled for a verification simulation on the [facility] to ensure proper set-up and field arrangement is correct prior tothe first treatment of primary and boost vivas if applicable.Patient education will be completed per nursing.Electronically SignedKeyshawn Pagan M.D. / YOHANT10/12/20163:32 PM Normal [facility] Protein HNO ID: [id number] thor: Marylou Mahajan Liliyaervice: (none)Author Type: PhysicianType: Progress NotesFiled: 10/16/2016 12:33 AMNote Text:PARK [id number] 10/12/2016[facility] SanduskyRadiation Oncology DepartmentRADIATION ONCOLOGY - TREATMENT PLANNING NOTEFor reasons stated in the consult note, Park Guidry is a candidatefor radiation therapy. Based on review and interpretation of therelevant diagnostic studies together with the exam findings, Dedra was simulated on 10/12/2016 at which time the target volumeand/or requisite vivas were delineated, as indicated in the simulationnote, to be treated according to the prescription.The treatment target and organs at risk were contoured on the simulationscan.After reviewing multiple treatment plans with dosimetry, the best planwas approved to deliver the prescribed course of radiation to the targetarea using inverse planning to allow for the best isodose distribution,treating to the 96.7% isodose line with 6MV and 3 vivas. Custom MLCsasym jaws for IMRT were the treatment devices used to shape/modify thebeams. Limiting dose to normal tissue was confirmed upon review of thecalculated dose volume histogram.IMRT planning was used because it best met the dose/volume constraintsfor the organs at risk for this patient, better than what could beachieved using conventional or 3D planning. The specific doserequirements for the PTV, organs at risk and dose-volume histograms arecontained in this treatment plan and/or elsewhere in the medical record.A completed summary of this plan dated 10/15/16 incorporated herein byreference includes dose, ports, beam arrangements, energy, blocking,isodose distribution and DVH.Electronically SignedKeyshawn Pagan M.D. / NOHEMI10/15/201612:32 PM Normal [facility] CT-CT ABD/PELVIS W CON IMPOR Ton 10-04-2016 CT-CT ABD/PELVIS W CON IMPORT Images were obtained outside of [facility] [id number] Normal [facility] PROGRESSon 10-01-2016 Protein HNO ID: [id number] thor: Marylou Matamorosice: (none)Author Type: PhysicianType: Progress NotesFiled: 10/01/2016 2:32 PMNote Text:Radiation Oncology - New Patient/Consult NotePATIENT NAME: Park Aldrich PROVIDER: Dr. GarciaDIAGNOSIS: 76 year old male with prostate adenocarcinoma, initial PSA35.73, biopsy [place] score 4 + 3 = 7 (grade group 3), clinical stageIIB M7bA9S8, s/p TRUS-biopsyHPI: 76 year old male with prostate adenocarcinoma who presents for anopinion regarding the role of radiation therapy in the management of thepatient's disease. Final recommendations will be communicated back to therequesting physician by way of the shared medical record, or letter torequesting physician via US mail.He was noted to have an elevated PSA of 35.73 with 10% free on 06/19/16.Other PSAs include:22.5 06/18/173.84 9/6/111.98 09He underwent transrectal ultrasound-guided biopsy and 1717 with pathologydemonstrating adenocarcinoma from the right base [place] 7 (3+4) ghdyeatbo71% of those cores as well as right lateral base, Pj 7 (4+3).Overall patient is fairly active without acute medical problems. He didhave recent finding of blood on Hemoccult test and has been recommended toundergo colonoscopy. He denies any active cardiac or pulmonary issues.He comes in today to discuss treatment options.He reports the following pertinent history:Urinary frequency (D/N): 4/1Dysuria: NoIncontinence: NoHematuria: No- Total AUA Score: 14Bowel movement frequency: 1-2/dayBowel movement quality: normalBlood per rectum: YesLast colonoscopy: dueAndrogen deprivation: nonePrior radiation therapy, collagen vascular disease, or inflammatory boweldisease: NoCurrently on anticoagulation: NoHistory of hip replacement: NoHistory of prior TURP: NoALLERGIESNo Known AllergiesALPRAZolam (XANAX) 0.25 mg tabletmeloxicam (MOBIC) 15 mg tabletdoxazosin (CARDURA) 2 mg tabletPAST MEDICAL HISTORYDiagnosis Date- ArthritisPAST SURGICAL HISTORYProcedure Laterality Date- ARTHROPLASTY KNEE MEDIAL OR LAT COMPART BilateralNo family history on file.Social HistorySubstance Use Topics- Smoking status: Never Smoker- Smokeless tobacco: Not on file- Alcohol use Not on fileREVIEW OF SYSTEMS:GENERAL: Negative for weight loss, fevers, chills, or night sweats.HEENT: Negative for sudden vision or hearing changes.NECK: Negative for masses in the neck.RESPIRATORY: Negative for cough or shortness of breath.CARDIAC: Negative for chest pain, palpitations, murmurs, or syncopalepisodes.GI: See HPIGU: See HPIMUSCULOSKELETAL: Negative for limitations in movement, pain, or swelling.NEURO: Negative for dizziness, headache, weakness or numbness.HEMATOLOGIC: Negative for bleeding or easy bruising.SKIN: Negative for rashes or other skin changes.PHYSICAL EXAM:VS: BP 136/80 Ht 172.1 cm (5' 7.75 ) Wt 92.5 kg (204 lb) BMI 31.25kg/m2KPS: 100General Appearance: Alert and oriented. No acute distress.HEENT: NCAT. Sclera anicteric. PERRL. EOMI.Neck: Normal ROM. No palpable cervical or supraclavicular adenopathy.Chest: No respiratory distress. Lungs clear to auscultation bilaterally.Heart: Regular rate and rhythm.Abdomen: Soft. Nontender. Nondistended.Musculoskelet al: No edema. Normal ROM in extremities. No bone or spinetenderness.Neuro: Strength intact and symmetric. Sensation intact. CN II-XII intact.Gait normal. No focal deficits.Skin: No rashes notedLymphatics: No palpable lymphadenopathy.: Normal, descended testicles bilaterally without nodularity ortendernessRectal: Asymmetric firm area right mid gland no tendernessRADIOLOGY/LABORA TORY DATA: see HPIASSESSMENT/PLAN: Prostate adenocarcinoma, 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, biopsyGleason score 4 + 3 = 7 (grade group 3), clinical stage IIB L4wT5T6, s/pTRUS-biopsyPatient has a localized but high risk adenocarcinoma prostate based onpalpable disease, PSA greater than 20 and [place] 7 (4+3). I wouldconcur with definitive treatment recommendations based on thesehistopathologic factors as well as patient's excellent performance status. I would recommend bone scan for further staging and CT abdomen andpelvis. In terms of options were discussed both radiation and surgicaloptions. Patient wants to pursue radiation course of treatment. Wediscussed both external beam treatment as well as external beam withbrachytherapy boost. We discussed potential acute and hwul-rluoeujyrjtdx-qmevgti effects. We discussed the role of androgen deprivationtherapy given his high-risk features which has been started by Dr. Garcia.Patient and expressed understanding of the information presented.Plan to proceed with a course of IMRT treatment with image guidance basedon cone beam CT to the pelvis and prostate for dose of 4500 cGy followedby prostate brachytherapy boost. We'll coordinate brachytherapy componenttreatment with Dr. Garcia officePatient is also undergoing workup for recent guaiac positive stools.Would recommend completion of colonoscopy prior to proceeding with plannedpelvic radiation. This is currently being scheduled.Signed by: Marylou Pagan, [facility]:Alpesh Dunn MD ([facility])[address] [place] [address]Smryl: [phone]: [phone] [facility] CNCNPATEDon 09-29-2016 CNCNPATED Education (RADTSA) OUSMANE GUIDRY ([id number]) 1940 [facility] Department09/29/16 PHOEBE SEGURA (RN) Elidia for Visit: Patient Education [91]Visit Notes:>> Phoebe Matthews) LAQUITA Segura TueSep 29, 2016 1:58 PM Status: SignedRadiation Therapy - Patient Education NotePATIENT NAME: Park Aldrich 2016[facility]LOCATION: NCCCREADINESS TO LEARNCognitive Ability: Alert and orientedMotivation to learn: InterestedFamily Support: High - Very involved in pt careInstruction provide to: Patient and family memberPatient learns best by: Multiple MethodsFactors effecting learning: NonePhysical limitations effecting learning: NoneLEARNING RESPONSEDiagnosis: Pt educated today for radiation therapy to pelvis.Education Topic/Teaching Points: Radiation therapy, Side effects and OTV:Method of instruction: Written instruction - handoutsPatient /Family response: Patient and family verbalized understandingof radiation treatments, side effects, OTV, and transportation.Follow-up plan: Recommend - Recommend continued instruction and follow upas directedSupplemental material: Informational handouts on Prostate external beamand Prostate brachytherapy.Referral (recommendation): None, Pt denied need for social work, vanservice, and special investigator.Signed by: Rachel Gonzales Visit Diagnosis:Prostate cancer (HCC) [C61] During your visit today, we recorded the following information about you:Allergies As of Date: 09/29/2016(No Known Allergies)Date Reviewed: 09/29/2016Reviewed by: Phoebe (Rn) LAQUITA Segura - Fully AssessedPrescriptions as of 09/29/2016 Sig: ALPRAZOLAM 0.25 MG TABLET MELOXICAM 15 MG TABLET DOXAZOSIN 2 MG TABLET IV CONTRAST (RADIOLOGY PROCED* CT ABD/PEL -Inject, intraveno* ENTERIC CONTRAST (RADIOLOGY P* For CT ABD/PEL W IVCON Routin* Status:Closed by PHOEBE SEGURA on 09/29/16 Normal [facility] CNCOon 09-29-2016 CNCO Letter TextDehank Guidry:How to activate your [facility] Account 1. Visit the [facility] Signup page at [email or web address] 2. Identify yourself using your one-time use activation code: [email or web address] 3. Follow the on-screen prompts to choose your own secure username andpasswordThe following information will be necessary to access your account for thefirst time:Information needed for sign-up:Your custom activation code used one-time only for the initial accountset-up.Your date of birthThe last 4 digits of your social security numberWhat to do next:Fill in the requested information on the Identify Yourself Form [email or web address] , click Next.Create your login and password, choose a [facility] ID and password that will beeasy for you to use, but impossible for anyone else to guess.Pick a security question that will assist you in the event you forget yourpassword the next time you log-on.If you have difficulty activating your account, please call our iList at [phone] or toll free at .We hope you enjoy using [facility]!Kindest Regards,[facility] Team Normal [facility] CNOVon 09-29-2016 CNOV Office Visit (RADTSA) BREAOUSMANE ([id number]) 1940 MDate Time Provider Department09/29/16 1:00 PM Marylou PAGAN During your visit today, we recorded the following information about you: Blood pressure Weight Height 136/80 92.5 kg 1.721 Yolis Segura, RN, RN 09/29/2016 1:07 PM SignedAUMelita Segura RNG Keyshawn Pagan MD 10/01/2016 2:32 PM SignedRadiation Oncology - New Patient/Consult NotePATIENT NAME: Park Aldrich PROVIDER: Dr. GarciaDIAGNOSIS: 76 year old male with prostate adenocarcinoma, 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,biopsy [place] score 4 + 3 = 7 (grade group 3), clinical stage IIB [id number],s/p TRUS-biopsyHPI: 76 year old male with prostate adenocarcinoma who presents for an opinionregarding the role of radiation therapy in the management of the patient'sdisease. Final recommendations will be communicated back to the requestingphysician by way of the shared medical record, or letter to requestingphysician via US mail.He was noted to have an elevated PSA of 35.73 with 10% free on 06/19/16. OtherPSAs include:22.5 06/18/173.84 9//111.98 06/10/08He underwent transrectal ultrasound-guided biopsy and 1717 with pathologydemonstrating adenocarcinoma from the right base Pj 7 (3+4) including 35%of those cores as well as right lateral base, Pj 7 (4+3).Overall patient is fairly active without acute medical problems. He did haverecent finding of blood on Hemoccult test and has been recommended to undergocolonoscopy. He denies any active cardiac or pulmonary issues.He comes in today to discuss treatment options.He reports the following pertinent history:Urinary frequency (D/N): 4/1Dysuria: NoIncontinence: NoHematuria: No- Total AUA Score: 14Bowel movement frequency: 1-2/dayBowel movement quality: normalBlood per rectum: YesLast colonoscopy: dueAndrogen deprivation: nonePrior radiation therapy, collagen vascular disease, or inflammatory boweldisease: NoCurrently on anticoagulation: NoHistory of hip replacement: NoHistory of prior TURP: NoALLERGIESNo Known AllergiesALPRAZolam (XANAX) 0.25 mg tabletmeloxicam (MOBIC) 15 mg tabletdoxazosin (CARDURA) 2 mg tabletPAST MEDICAL HISTORYDiagnosis Date- ArthritisPAST SURGICAL HISTORYProcedure Laterality Date- ARTHROPLASTY KNEE MEDIAL OR LAT COMPART BilateralNo family history on file.Social HistorySubstance Use Topics- Smoking status: Never Smoker- Smokeless tobacco: Not on file- Alcohol use Not on fileREVIEW OF SYSTEMS:GENERAL: Negative for weight loss, fevers, chills, or night sweats.HEENT: Negative for sudden vision or hearing changes.NECK: Negative for masses in the neck.RESPIRATORY: Negative for cough or shortness of breath.CARDIAC: Negative for chest pain, palpitations, murmurs, or syncopal episodes.GI: See HPIGU: See HPIMUSCULOSKELETAL: Negative for limitations in movement, pain, or swelling.NEURO: Negative for dizziness, headache, weakness or numbness.HEMATOLOGIC: Negative for bleeding or easy bruising.SKIN: Negative for rashes or other skin changes.PHYSICAL EXAM:VS: BP 136/80 Ht 172.1 cm (5' 7.75ANDquot;) Wt 92.5 kg (204 lb) BMI 31.25kg/m2KPS: 100General Appearance: Alert and oriented. No acute distress.HEENT: NCAT. Sclera anicteric. PERRL. EOMI.Neck: Normal ROM. No palpable cervical or supraclavicular adenopathy.Chest: No respiratory distress. Lungs clear to auscultation bilaterally.Heart: Regular rate and rhythm.Abdomen: Soft. Nontender. Nondistended.Musculoskelet al: No edema. Normal ROM in extremities. No bone or spinetenderness.Neuro: Strength intact and symmetric. Sensation intact. CN II-XII intact. Gaitnormal. No focal deficits.Skin: No rashes notedLymphatics: No palpable lymphadenopathy.: Normal, descended testicles bilaterally without nodularity or tendernessRectal: Asymmetric firm area right mid gland no tendernessRADIOLOGY/LABORA TORY DATA: see HPIASSESSMENT/PLAN: Prostate adenocarcinoma, 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, biopsy Gleasonscore 4 + 3 = 7 (grade group 3), clinical stage IIB [id number], s/p TRUS-biopsyPatient has a localized but high risk adenocarcinoma prostate based on palpabledisease, PSA greater than 20 and [place] 7 (4+3). I would concur withdefinitive treatment recommendations based on these histopathologic factors aswell as patient's excellent performance status. I would recommend bone scanfor further staging and CT abdomen and pelvis. In terms of options werediscussed both radiation and surgical options. Patient wants to pursueradiation course of treatment. We discussed both external beam treatment aswell as external beam with brachytherapy boost. We discussed potential acuteand long-term radiation-related effects. We discussed the role of androgendeprivation therapy given his high-risk features which has been started by .Patient and expressed understanding of the information presented. Plan toproceed with a course of IMRT treatment with image guidance based on cone beamCT to the pelvis and prostate for dose of 4500 cGy followed by prostatebrachytherapy boost. We'll coordinate brachytherapy component treatment withMario Garcia officePatient is also undergoing workup for recent guaiac positive stools. Wouldrecommend completion of colonoscopy prior to proceeding with planned pelvicradiation. This is currently being scheduled.Signed by: Marylou Pagan, [facility]:Alpesh Dunn MD ([facility])[address] [place] [address]Rykau: [phone]: [phone] Provider: LUIS GARCIA [[id number]]Allergies As of Date: 09/29/2016(No Known Allergies)Date Reviewed: 09/29/2016Reviewed by: Phoebe (Rn) LAQUITA Segura - Fully AssessedPrimary Visit Diagnosis:Prostate cancer (HCC) [C61] Other Visit Diagnosis:Screening for nephropathy [Z13.89]Order(s):CREATININ E BLD [SQCRET] Order #: [id number] FUTURE NM WHOLE BODY BONE SCAN [[id number]] Order #: [id number] FUTURE CT ABD/PEL W IVCON [[id number]] Order #: [id number] FUTURE [] iv contrast (radiology procedure)CT ABD/PEL -Inject, intravenously, once for 1 dose.No IV access, insert saline lock prior to the beginning of sedation, infusion, injection of imaging exam. Discontinue saline lock post exam. If Pt. has a central line or IVAD, may access for administration according to line specific nursing protocol. Once exam is complete flush line and de-access according to line specific nursing protocol in the CT contrast administration guidelines link.Disp: 1 EachRfl: 0 [] enteric contrast (radiology procedure)For CT ABD/PEL W IVCON Routine order Administer, As Directed One Time Only, via Oral, Rectal, both Oral and Rectal, Enteric Tube, Stoma or Indwelling Catheter, Enteric Contrast as designated per enteric contrast guidelinesDisp: 1 EachRfl: 0Prescriptions as of 09/29/2016 Sig: ALPRAZOLAM 0.25 MG TABLET MELOXICAM 15 MG TABLET DOXAZOSIN 2 MG TABLET IV CONTRAST (RADIOLOGY PROCED* CT ABD/PEL -Inject, intraveno* ENTERIC CONTRAST (RADIOLOGY P* For CT ABD/PEL W IVCON Routin*Medication notes this encounter ALPRAZOLAM 0.25 MG TABLET >> Phoebe Segura RN, RN 09/29/2016 12:42 PM >> PHOEBE SEGURA TueSep 29, 2016 12:42 PM Received from: External Pharmacy MELOXICAM 15 MG TABLET >> Phoebe Segura RN, RN 09/29/2016 12:42 PM >> PHOEBE SEGURA TueSep 29, 2016 12:42 PM Received from: External Pharmacy DOXAZOSIN 2 MG TABLET >> Phoebe Segura RN, RN 09/29/2016 12:42 PM >> PHOEBE SEGURA TueSep 29, 2016 12:42 PM Received from: External PharmacyProblem List As Of Date 09/29/2016 Noted Resolved Prostate cancer (HCC) [C61] INVALID FOR*Visit Notes:>> Phoebe Segura RN TueSep 29, 2016 12:45 PM Status: BO Lermarescriptions ordered this encounter Disp Refills Start End IV CONTRAST (RADIOLOGY PROCEDURE) 1 Ea* 0 09/29/2016 09/30/2016 Class: In Office Sig: CT ABD/PEL -Inject, intravenously, once for 1 dose.No IV access, insert saline lock prior to the beginning of sedation, infusion, injection of imaging exam. Discontinue saline lock post exam. If Pt. has a central line or IVAD, may access for administration according to line specific nursing protocol. Once exam is complete flush line and de-access according to line specific nursing protocol in the CT contrast administration guidelines link. ENTERIC CONTRAST (RADIOLOGY PROCEDUR* 1 Ea* 0 09/29/2016 09/30/2016 Class: In Office Sig: For CT ABD/PEL W IVCON Routine order Administer, As Directed One Time Only, via Oral, Rectal, both Oral and Rectal, Enteric Tube, Stoma or Indwelling Catheter, Enteric Contrast as designated per enteric contrast guidelinesFollow-up and Disposition History RecordedLetter TextToll Free: [phone] [facility] - [address] [place], [place] [address]Tasdy: [phone]: [facility] - [address] [place], [place] [address]Mbmon: [phone]: [place] [id number] [place], [place] [address]Wcooc: [phone]: benid Quach M.D., Sanjana Francis M.D.Bennie Luna M.D.Laurel Loja M.D.Kay Souza M.D., Catrachito Liu M.D.Name: Park CookH[facility]#: [id number] of Service: 09/29/2016Page: 2016Luis Garcia MD[address] Randolph [facility] DSanduskSt. Louis Behavioral [facility] Institute [address]Bxxzrrx Name: Park GuidryDate of : 1940[facility] #: [id number] of Visit: 09/29/2016Dear Dr. Valero had the pleasure of seeing your patient, Park Guidry, at [facility], a department [facility].The details on his history and treatment plan are included in my office note,a copy of which is included for your records.I appreciate the opportunity to participate in Mr. Guidry's evaluationand treatment. If you have any questions or concerns, please feel free tocontact me.Sincerely Yours,Marylou Pagan MD(signed electronically to expedite mailing)Radiation Oncology - New Patient/Consult NotePATIENT NAME: Park Aldrich PROVIDER: Dr. GarciaDIAGNOSIS: 76 year old male with prostate adenocarcinoma, 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,biopsy [place] score 4 + 3 = 7 (grade group 3), clinical stage IIB [id number],s/p TRUS-biopsyHPI: 76 year old male with prostate adenocarcinoma who presents for anopinion regarding the role of radiation therapy in the management of thepatient's disease. Final recommendations will be communicated back to therequesting physician by way of the shared medical record, or letter torequesting physician via US mail.He was noted to have an elevated PSA of 35.73 with 10% free on 06/19/16. OtherPSAs include:22.5 06/18/173.84 10/13/111.98 06/10/08He underwent transrectal ultrasound-guided biopsy and 1717 with pathologydemonstrating adenocarcinoma from the right base Pj 7 (3+4) % of those cores as well as right lateral base, [place] 7 (4+3).Overall patient is fairly active without acute medical problems. He did haverecent finding of blood on Hemoccult test and has been recommended to undergocolonoscopy. He denies any active cardiac or pulmonary issues.He comes in today to discuss treatment options.He reports the following pertinent history:Urinary frequency (D/N): 4/1Dysuria: NoIncontinence: NoHematuria: No- Total AUA Score: 14Bowel movement frequency: 1-2/dayBowel movement quality: normalBlood per rectum: YesLast colonoscopy: dueAndrogen deprivation: nonePrior radiation therapy, collagen vascular disease, or inflammatory boweldisease: NoCurrently on anticoagulation: NoHistory of hip replacement: NoHistory of prior TURP: NoALLERGIESNo Known AllergiesALPRAZolam (XANAX) 0.25 mg tabletmeloxicam (MOBIC) 15 mg tabletdoxazosin (CARDURA) 2 mg tabletPAST MEDICAL HISTORYDiagnosis Date- ArthritisPAST SURGICAL HISTORYProcedure Laterality Date- ARTHROPLASTY KNEE MEDIAL OR LAT COMPART BilateralNo family history on file.Social HistorySubstance Use Topics- Smoking status: Never Smoker- Smokeless tobacco: Not on file- Alcohol use Not on fileREVIEW OF SYSTEMS:GENERAL: Negative for weight loss, fevers, chills, or night sweats.HEENT: Negative for sudden vision or hearing changes.NECK: Negative for masses in the neck.RESPIRATORY: Negative for cough or shortness of breath.CARDIAC: Negative for chest pain, palpitations, murmurs, or syncopalepisodes.GI: See HPIGU: See HPIMUSCULOSKELETAL: Negative for limitations in movement, pain, or swelling.NEURO: Negative for dizziness, headache, weakness or numbness.HEMATOLOGIC: Negative for bleeding or easy bruising.SKIN: Negative for rashes or other skin changes.PHYSICAL EXAM:VS: BP 136/80 Ht 172.1 cm (5' 7.75 ) Wt 92.5 kg (204 lb) BMI 31.25kg/m2KPS: 100General Appearance: Alert and oriented. No acute distress.HEENT: NCAT. Sclera anicteric. PERRL. EOMI.Neck: Normal ROM. No palpable cervical or supraclavicular adenopathy.Chest: No respiratory distress. Lungs clear to auscultation bilaterally.Heart: Regular rate and rhythm.Abdomen: Soft. Nontender. Nondistended.Musculoskelet al: No edema. Normal ROM in extremities. No bone or spinetenderness.Neuro: Strength intact and symmetric. Sensation intact. CN II-XII intact.Gait normal. No focal deficits.Skin: No rashes notedLymphatics: No palpable lymphadenopathy.: Normal, descended testicles bilaterally without nodularity or tendernessRectal: Asymmetric firm area right mid gland no tendernessRADIOLOGY/LABORA TORY DATA: see HPIASSESSMENT/PLAN: Prostate adenocarcinoma, 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, biopsy Gleasonscore 4 + 3 = 7 (grade group 3), clinical stage IIB [id number], s/p TRUS-biopsyPatient has a localized but high risk adenocarcinoma prostate based onpalpable disease, PSA greater than 20 and [place] 7 (4+3). I would concurwith definitive treatment recommendations based on these histopathologicfactors as well as patient's excellent performance status. I would recommendbone scan for further staging and CT abdomen and pelvis. In terms ofoptions were discussed both radiation and surgical options. Patient wants topursue radiation course of treatment. We discussed both external beamtreatment as well as external beam with brachytherapy boost. We discussedpotential acute and long-term radiation-related effects. We discussed therole of androgen deprivation therapy given his high-risk features which hasbeen started by Dr. Garcia.Patient and expressed understanding of the information presented. Planto proceed with a course of IMRT treatment with image guidance based on conebeam CT to the pelvis and prostate for dose of 4500 cGy followed by prostatebrachytherapy boost. We'll coordinate brachytherapy component treatment withDr. Garcia officePatient is also undergoing workup for recent guaiac positive stools. Wouldrecommend completion of colonoscopy prior to proceeding with planned pelvicradiation. This is currently being scheduled.Signed by: Marylou Pagan, [facility]:Alpesh Dunn MD ([facility])[address] [place] [address]Dxamc: [phone]: [phone] Number: [id number] Status:Closed by Marylou PAGAN MD on 10/01/16 Normal [facility] Vital Signs Date Time Vital Sign Value Performing Clinician Facility 02-09-2023 11:30-0500 Body height 170.18 cm Alpesh Shaun Other [facility] Other 02-09-2023 11:30-0500 Body mass index (BMI) [Ratio] 30.48 kg/m2 Alpesh Ball Other [facility] Other 02-09-2023 11:30-0500 Body weight 88.27 kg Alpesh Ball Other [facility] Other 02-09-2023 11:30-0500 Diastolic blood pressure 74 mm[Hg] Alpesh Ball Other [facility] Other 02-09-2023 11:30-0500 Respiratory rate 16 /min Alpesh Ball Other [facility] Other 02-09-2023 11:30-0500 Systolic blood pressure 136 mm[Hg] Alpesh Ball Other [facility] Other 02-02-2023 08:31-0500 Body temperature 97.8 [degF] DO Alpesh Ball Work Phone: [facility] 02-02-2023 08:31-0500 Diastolic blood pressure 71 mm[Hg] DO Alpesh Ball Work Phone: [facility] 02-02-2023 08:31-0500 Heart rate 81 /min DO Alpesh Ball Work Phone: [facility] 02-02-2023 08:31-0500 Respiratory rate 17 /min DO Alpesh Ball Work Phone: [facility] 02-02-2023 08:31-0500 SaO2% (BldA) [Mass fraction] 96 % DO Alpesh Ball Work Phone: [facility] 02-02-2023 08:31-0500 Systolic blood pressure 132 mm[Hg] DO Alpesh Ball Work Phone: [facility] 02-02-2023 06:54-0500 Body height 170.18 cm DO Alpesh Ball Work Phone: [facility] 01-30-2023 05:44-0500 Body weight 90.5 kg DO Alpesh Ball Work Phone: [facility] 01-20-2023 16:00-0500 Inhaled oxygen flow rate 2 L/min DO Alpesh Ball Work Phone: [facility] 12-24-2022 09:00-0500 Body height 170.18 cm Alpesh Ball Other [facility] Other 12-24-2022 09:00-0500 Body mass index (BMI) [Ratio] 31.13 kg/m2 Alpesh Ball Other [facility] Other 12-24-2022 09:00-0500 Body weight 90.18 kg Alpesh Ball Other [facility] Other 12-24-2022 09:00-0500 Diastolic blood pressure 87 mm[Hg] Alpesh Ball Other [facility] Other 12-24-2022 09:00-0500 Respiratory rate 16 /min Alpesh Ball Other [facility] Other 12-24-2022 09:00-0500 Systolic blood pressure 132 mm[Hg] Alpesh Ball Other [facility] Other 11-24-2022 14:30-0400 Body height 170.18 cm Alpesh Ball Other [facility] Other 11-24-2022 14:30-0400 Body mass index (BMI) [Ratio] 31.04 kg/m2 Alpesh Ball Other [facility] Other 11-24-2022 14:30-0400 Body weight 89.9 kg Alpesh Ball Other [facility] Other 11-24-2022 14:30-0400 Diastolic blood pressure 87 mm[Hg] Alpesh Ball Other [facility] Other 11-24-2022 14:30-0400 Respiratory rate 16 /min Alpesh Ball Other [facility] Other 11-24-2022 14:30-0400 SaO2% (BldA) [Mass fraction] 97 % Alpesh Ball Other [facility] Other 11-24-2022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 sclera Neck: Normal ROM, normal visual inspection. Trachea midline. Cardio: Regular heart rate and rhythm Respiratory: Clear to auscultation bilaterally. Normal respiratory effort. No respiratory distress. Right rib cage pain. GI: Abdomen soft, nontender, nondistended, active bowel sounds x4 quadrants Neuro: CN II-XII intact. Strength 5/5, equal bilaterally Extremities: No edema, erythema, cyanosis. Right hip and lower thigh incisions,covered with dry dressings without evidence of drainage. No surrounding erythema. Right knee is significantly swollen compared to the left side. No excessive warmth to touch. Mildly tender to palpation. Psych: Mood and affect appropriate. Normal speech. Results Labs Labs: Laboratory Results - last 24 hr 01/20/23 01/20/23 05:27 05:27 Corrected WBC 10.8 H Uncorrected WBC Count 10.8 H RBC 3.47 L Hgb 10.4 L Hct 30.9 L MCV 89.2 MCH 30.0 MCHC 33.7 RDW 13.6 Plt Count 169 MPV 10.5 H Neut % (Auto) 80.8 Lymph % (Auto) 7.0 Gila % (Auto) 9.9 Eos % (Auto) 1.8 Baso % (Auto) 0.5 Nucleat RBC Rel Count 0.1 Neut # (Auto) 8.7 H Lymph # (Auto) 0.8 L Gila # (Auto) 1.1 H Eos # (Auto) 0.2 Baso # (Auto) 0.1 PHA Creatinine Clear 121.00 Sodium 135 L Potassium 3.8 Chloride 103 Carbon Dioxide 24.4 Anion Gap 11.4 BUN 16 Creatinine 0.68 L Est GFR (CKD-EPI) > 60.0 Glucose 130 H Calcium 8.5 L Total Bilirubin 0.8 AST 12 L ALT 4 L Alkaline Phosphatase 64 Total Protein 5.9 L Albumin 3.0 L Globulin 2.9 Albumin/Globulin Ratio 1.0 Prealbumin 8.4 L Additional Results Results Comment: I reviewed clinical lab tests, radiology reports and obtained and summated medical records and have ordered follow up lab tests and imaging studies as needed for rehabilitation care. Functional Status Prior Level of Function Narrative: Previously independent Current Level of Function Narrative: Walking short distances with a rolling walker and mod assist. Mod assist x 2 with transfers. Individualized Plan of Care Individualized Plan of Care Plan of Care: Individualized Overall Plan of Care: Admit Date/Time: 01/19/23 Expected LOS: 14 Days Expected Discharge Destination: Home Rehabilitation C: 8.2 Primary Diagnosis: as above Patient?s/Family?s anticipated outcomes/personal goals: To have patient become more independent and to return home. Medical/ Functional Prognosis: Good Anticipated Functional Outcomes/Goals and Interventions: -Therapy Functional Outcome/Goal: Mobility/Locomotion: Patient likely to be independent with ambulation with assistive device. Anticipated interventions: Physician management, PT, OT, Dietitian, Rehab Nursing - Therapy Functional Outcome/Goal: Self Care: Patient likely to be functionally independent for activities of daily living using assistive / adaptive equipment as needed. Anticipated interventions: Physician management, PT, OT, Dietitian, Rehab Nursing - Therapy Functional Outcome/Goal: Bladder/Bowel Management: Patient likely to be independent with bladder care and independent with bowel care. Anticipated interventions: Physician management, PT, OT, Dietitian, Rehab Nursing -Therapy Functional Outcome/Goal: Communication/Cognition: Patient will be able to communicate fully and be safe cognitively. Anticipated interventions: Physician management, PT, OT, Dietitian, Rehab Nursing -Therapy Functional Outcome/Goal: Patient will be independent for bed mobility and transfers Anticipated interventions: Physician management, PT, OT, Dietitian, Rehab Nursing -Therapy Functional Outcome/Goal: Patient will improve endurance to be able to tolerate all daily self care activities and avocational activities. Anticipated interventions: Physician management, PT, OT, Nutrition, Rehab Nursing -Therapy Functional Outcome/Goal: Patient will understand and assimilate / integrate education regarding management of their medical conditions to maintainhealth and wellbeing. Anticipated interventions: Physician management, PT, OT, Dietitian, Rehab Nursing Required Therapy PT: 1.5 hour per day at least 5 days per week with additional therapy on as needed basis. Comments: PT to improve pt's strength, endurance, bed mobility, transfers (sit-stand), standing balance, gait quality on level surfaces and stairs, coordination and functional ADL skills. Will also work to improve pt's safety awareness during transfers and ambulation. OT: 1.5 hour per day at least 5 days per week with additional therapy on as needed basis. Comments: OT for basic ADL re-training (bathing, dressing, toileting, continence, grooming, feeding, transferring), to increase activity tolerance andfunctional mobility and to evaluate for adaptive and assistive devices. Will work to improve pt's endurance and educate pt on fall prevention and energy conservation techniques-pacing strategies and proper breathing techniques duringfunctional tasks. Other: Nutrition, Rehab nursing, Wound, P&O RATIONALE FOR IRF ADMISSION: Patient has both medical and functional complexities that require 24 hour daily monitoring and intervention from [employer] as well as other consulting physicians including internal medicine as well as 24 hour daily nurses aide nursing - for medical safe / optimal management. Patient requires interdisciplinary therapy team rehabilitation care including OT, PT, SW, Rehab Nursing, requires and can tolerate at least 3 hoursof daily OT and PT therapy at least 5 days weekly. The following medical conditions significantly impact the rehabilitation process and are being addressed daily and can not be managed at home or in a lesser intense medical setting: Refer to above problem oriented plan of care Assessment/Plan (1) Right femoral fracture: (2) Acute postoperative pain of right hip: (3) Prostate CA: (4) Hypertension: (5) Impaired mobility and activities of daily living: (6) Rib contusion: Plan Patient is an 82-year-old male presenting to acute inpatient rehab with functional impairments secondary to right femur fracture s/p IM nailing at [facility]. * Weight-bear as tolerated to the operative extremity. * Mildly anemic postop. Trend blood counts. Add iron supplement. * Lovenox for DVT prophylaxis. Patient education Pressure ulcer prophylaxis; encourage mobilization, frequent postural changes, pressure-relief techniques DVT prophylaxis: Lovenox Encourage deep breathing exercise incentive spirometry. Monitor bladder. Toileting schedule. Continue current bladder management, with scans as needed and CIC if needed. Start bowel care program every day to obtain continence, prevent ileus. Maintain fall precautions Gait and balance retraining Functional training and self-care and home management, including activities of daily living and instrumental activities of daily living Provision of the necessary gait aids and functional adaptive equipment to enhance the patient's a functional quaker Ensure adequate nutrition and hydration Sleep: No issues Pain: Continue current regimen Discharge planning: Hopefully home with family in 7 to 10 days. I spent greater than 15 minutes for services, including [id number] encounter with the patient, discussion of the case, plan of care, and exam; and [id number] activities, such as reviewing pertinent data integrity consultant documentation, recent therapy notes, laboratory and radiology studies, and discussion of case with care team including physician, nursing, rifle case repairer, and therapists. More than 50 % of time was spent on patient/family counseling or coordination ofcare. I completed a substantive portion of this encounter, the medical decision makingportion of this note in its entirety, including Allied health note review, nursing note review, data integrity consultant note review, discussion with nursing and case management, and more than 50% of my time was spent on counseling and coordination of care, time spent 45 minutes Patient was personally seen by me, Dr. Mckinney, on the day of encounter, reviewed the history and the relevant portions of the chart, including current orders, allied health and data integrity consultant notes, labs/imaging and performed duong elements of exam and I formulated the plan of care and facilitated the medical decision making. Agreewith aboe. Right femur fx s/p nailing. Complaints of rib pain. Binder and lidocaine patch. WBAT. Increase oxycodone to q8hr. Documented By: Ashlyn Donato APRN 01/20/23 1 113 Signed By: <Electronically signed by SONAM Donato> 01/20/23 1207 <Electronically signed by Marc Mckinney MD> 01/20/23 5584 [facility] Work Phone: [phone] 889-826711-17-2023 Evaluation note* Encounter Date Diagnosis Assessment Notes Treatment Notes Treatment Clinical Notes Dec, Essential (primary) hypertension (ICD-10 - I10) This patient is instructed to consume a healthy, low-fat, low-salt diet. They are also encouraged to continue exercise to achieve/maintain a normal BMI. Dec, Lumbar spondylosis (ICD-10 - M47.816) The patient is instructed to avoid bending, twisting or lifting. They are to use intermittent heat and ice as needed. They may schedule a massage or gentle manipulation. They may safely use Tylenol as needed. 17 Dec, 2022 Gastroesophageal reflux disease with esophagitis without hemorrhage (ICD-10 - K21.00) Diet instructions: Smaller portions, avoid eating and laying flat, avoid eating or drinking prior to bedtime. Weight loss. 17 Dec, 2022 ELENA (generalized anxiety disorder) (ICD-10 - F41.1) Continue healthy diet and exercise. Keep active. No change in medical treatment. Dec, Other obesity due to excess calories (ICD-10 - E66.09) This patient has been instructed on a low-fat, high-fiber diet. They are instructed to reduce calories, portion sizes and snacks. It is recommended that they exercise for 30 minutes, 3-5 times weekly. Dec, Body mass index [BMI ] 32.0-32.9, adult (ICD-10 - Z68.32) Dec, Hesitancy of micturition (ICD-10 - R39.11) Dec, Benign prostatic hyperplasia with lower urinary tract symptoms (ICD-10 - N40.1) Symptoms tolerable f/u for BPH symptoms and surveillance of prostate cancer. Dec, Laceration of scalp, subsequent encounter (ICD-10 - S01.01XD) Laceration well approximated w/o bleeding or drainage. [place] removed w/ difficulty. Ok to wash hair Dec, Contusion of nose, subsequent encounter (ICD-10 - S00.33XD) Ice to nose daily Cleanse abrasion w/ soap and water. Bacitracin daily Call w/ increased pain, bleeding or erythema Dec, Body mass index [BMI ] 31.0-31.9, adult (ICD-10 - Z68.31) [facility] Other 10-18-2023 Evaluation note* Encounter Date Diagnosis Assessment Notes Treatment Notes Treatment Clinical Notes Nov, ORELLANA (dyspnea on exertion) (ICD-10 - R06.09) Required to consider cardiac and pulmonary etiology. Schedule CXR for now w/ CT scan, Echo as possible f/u studies to r/o pulmonary mass, cardiomyopathy, valvular heart disease, ASCVD. Low risk for DVT/PE but may be included in evaluation. Nov, Primary hypertension (ICD-10 - I10) This patient is instructed to consume a healthy, low-fat, low-salt diet. They are also encouraged to continue exercise to achieve/maintain a normal BMI. Nov, Dysarthria (ICD-10 - R47.1) Reviewed causes of dysparthria Correlation w/ symptoms require r/o carotid artery stenosis, ST neck mass/lymphadenopathy. Monitor for now Nov, Neck mass (ICD-10 - R22.1) Discussed possible etiologies: LN, defect in muscle CT to r/o pathologic LN or mass. Nov, Bilateral carotid bruits (ICD-10 - R09.89) No change in treatment Carotid US to r/o hemodynamically significant stenosis, increasing risk for thromboembolic disease. Nov, ELENA (generalized anxiety disorder) (ICD-10 - F41.1) Healthy diet and exercise. Continue medical treatment as needed. No ADR noted Nov, Lumbar spondylosis (ICD-10 - M47.816) Stretching exercises, keep active. Ice/heat and Tylenol as needed Nov, Fatigue, unspecified type (ICD-10 - R53.83) Healthy diet, exercise Check labs: CBC, BS, GFR and Hepatic enzymes. Nov, Prostate cancer (ICD-10 - C61) Stable w/ systemic treatment ongoing for metastatic prostate ca [facility] Other 05-17-2023 Evaluation note* Encounter Date Diagnosis Assessment Notes Treatment Notes Treatment Clinical Notes June, Medicare annual wellness visit, subsequent (ICD-10 - Z00.00) Personalized health advice was given to the beneficiary including a written plan for screenings discussed and provided. Advanced care planning reviewed and/or information given as requested. Additional counseling was provided here today in regards to, [ ]. The above visit was performed by [ ], under direct supervision of [ ]. Document reviewed and amended by provider signed below. Healthy diet and exercise. Reviewed age-appropriate preventive testing recommended. June, Essential (primary) hypertension (ICD-10 - I10) This patient is instructed to consume a healthy, low-fat, low-salt diet. They are also encouraged to continue exercise to achieve/maintain a normal BMI. June, Lumbar spondylosis (ICD-10 - M47.816) The patient is instructed to avoid bending, twisting or lifting. They are to use intermittent heat and ice as needed. They may schedule a massage or gentle manipulation. They may safely use Tylenol as needed. s/p Ablation procedure w/ excellent results. June, Gastroesophageal reflux disease with esophagitis without hemorrhage (ICD-10 - K21.00) Diet instructions: Smaller portions, avoid eating and laying flat, avoid eating or drinking prior to bedtime. Weight loss. June, ELENA (generalized anxiety disorder) (ICD-10 - F41.1) Healthy diet, keep active and Xanax as needed. Aware of sedative properties w/ Xanax and to take precautions June, Other obesity due to excess calories (ICD-10 - E66.09) This patient has been instructed on a low-fat, high-fiber diet. They are instructed to reduce calories, portion sizes and snacks. It is recommended that they exercise for 30 minutes, 3-5 times weekly. June, Body mass index [BMI ] 32.0-32.9, adult (ICD-10 - Z68.32) June, Hesitancy of micturition (ICD-10 - R39.11) June, Benign prostatic hyperplasia with lower urinary tract symptoms (ICD-10 - N40.1) Symptoms tolerable, continue Flomax f/u Urology June, High risk medication use (ICD-10 - Z79.899) [facility] Other Evaluation noteNo InformationNort Apiary Other Evaluation note* Diagnosis Onset Date Resolution Status Acute postoperative pain of right hip acute Anemia acute Diabetes acute Hypertension acute Impaired mobility and activities of daily living acute Prostate CA acute Rib contusion acute Right femoral fracture acute [facility] Work Phone: History general Narrative - Reported* Type Description Date Medical History Tubular adenoma of colon Medical History Prostate cancer Medical History Cellulitis of leg without foot, right Medical History Pain in right lower leg Medical History ELENA (generalized anxiety disorde r) Medical History Lumbar spondylosis Medical History Essential (primary) hypertension Medical History Gastroesophageal ref lux disease with esophagitis without hemorrhage Medical History Arthritis 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 Medical History Acquired 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 Surgical History LEFT TKA 2013 Surgical History TRUS/Bx 2017 Surgical History COLONOSCOPY 2016,2017 Hospitalization History SEE SURGICAL HX [facility] Other History general Narrative - Reported* Type Description Date Medical History Tubular adenoma of colon Medical History Prostate cancer Medical History Cellulitis of leg without foot, right Medical History Pain in right lower leg Medical History ELENA (generalized anxiety disorde r) Medical History Lumbar spondylosis Medical History Essential (primary) hypertension Medical History Gastroesophageal ref lux disease with esophagitis without hemorrhage Medical History Arthritis 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 Medical History Acquired 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 Medical History Right femur fracture Surgical History LEFT TKA 2013 Surgical History TRUS/Bx 2016 Surgical History COLONOSCOPY Surgical History Intramedullary nail of right fe mur fracture 01/2023 Hospitalization History SEE SURGICAL HX [facility] Other Summary Purpose Family History No Family History Records Found Relationship Condition Age at Onset Recorded Date/T viry Not Specified No pertinent family history Unknown Advance Directives No Advanced Directives Records Found Advance Directive Response Recorded Date/ Time Advance Directives No October 06, 2016 7:29am Chief Complaint and Reason for Visit Chief Complaint R surinder-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 femur shaft fx s/p imn Reason for Visit Acute postoperative pain of right hip Anemia Diabetes Hypertension Impaired mobility and activities of daily living Prostate CA Rib contusion Right femoral fracture Additional Source Comments (unrecognized sect ion and content) No Status Records FoundNo Status Records FoundNo Status Records FoundNo Status Records FoundNo Status Records Found INFORMATION SOURCE (unrecogn ized section and content) DATE CREATED AUTHOR 08/23/2017 [facility] DATE CREATED AUTHOR AUTHOR'S ORGANIZ ATION 01/29/2022 [facility] DATE CREATED AUTHOR AUTHOR'S ORGANIZ ATION 02/08/2023 [facility] DATE CREATED AUTHOR AUTHOR'S ORGANIZ ATION 08/03/2023 [facility] DATE CREATED AUTHOR AUTHOR'S ORGANIZ ATION 08/05/2023 [facility] REASON FOR VISIT (unrecogniz ed section and content) MEDICARE WELLNESSLab Results sinus infection for several weeksOrdersNo Information6 month Follow upNo Information[facility] upNo Information Care Teams (unrecognized sec tion and content) Team Status: Active Member Role Status Dates Alpesh Dunn , DO Primary Care Provider Active Team Status: Inactive Member Role Status Dates Alpesh Dunn , DO Primary Care Provider Active Marc Mckinney MD Admit Provider, Attending Provider Active Naheed Joshi , LAQUITA Other Provider Active Mariza Samuels , LAQUITA Other Provider Active Quyen Gonzalez , LAQUITA Other Provider Active Elizabeth Dawkins , LAQUITA Other Provider Active Bialey Rendon RN Other Provider Active Swathi Leyva , LAQUITA Other Provider Active Yadiel Yanez MD Other Provider Active Yi Gan , NETWORK PROFESSIONAL Other Provider Active Jacquie Cox , DO Other Provider Active Timi Mercado MD Other Provider Active Sherwin Cavanaugh , DO Other Provider Active Daniel Carnes MD Other Provider Active Flower Hendrickson MD Other Provider Active Crista Bui , NETWORK PROFESSIONAL Other Provider Active Rosamaria Gregory MD Other Provider Active Ga Barnett MD Other Provider Active Mario Merino MD Other Provider Active Kaylie Brower MD Other Provider Active Dm Seo , DO Other Provider Active Lenin Napier MD Other Provider Active Julian Maurice MD Other Provider Active Mia Liao METAL MOCKUP MAKER-C Other Provider Active Yordan Bowen MD Other Provider Active Juan Espinoza MD Other Provider Active Joss Michelle MD Other Provider Active Nathaniel Luna MD Other Provider Active Acacia Palacio , DO Other Provider Active Hayder Suazo , DO Other Provider Active Shorty Espino , DO Other Provider Active Molly Yin , NETWORK PROFESSIONAL Other Provider Active Fausto Wyatt , DO Other Provider Active Yuko Tavera MD Other Provider Active Patti Padilla NETWORK PROFESSIONAL Other Provider Active Esther Brambila , NETWORK PROFESSIONAL Other Provider Active Katina Grimm MD Other Provider Active Anatoly Ortiz MD Other Provider Active Taryn Hope , NETWORK PROFESSIONAL Other Provider Active Vlad Smalls , DO Other Provider Active Tonya Flood RN Other Provider Active FOR RECORDS PERTAINING TO PATIENTS WHO ARE OR HAVE BEEN ENROLLED IN A CHEMICAL DEPENDENCY/SUBSTANCEABUSE PROGRAM, SOME INFORMATION MAY BE OMITTED. This clinical summary was aggregated from multiple sources. Caution should be exercised in using it in the provision of clinical care. This summary normalizes information from multiple sources, and as a consequence, information in this document may materially change the coding, format and clinical context of patient data. In addition, data may be omitted in some cases. CLINICAL DECISIONS SHOULD BE BASED ON THE PRIMARY CLINICAL RECORDS. [facility] [employer] [facility]. provides no warranty or guarantee of the accuracy or completeness of information in this document.
[2023-08-12 11:27] LABS: Prostate Specific Antigen Dx <0.13 ng/mL (<=4.00)
== END 2023-08-12 09:08 | disposition home or self-care (01) ==
LOC: LAB 09:09
PROVIDERS: PCP Internal Medicine; Visit Provider Urology
DX: R97.21 Rising PSA following treatment for malignant neoplasm of prostate (principal)
CPT/HCPCS: 36415; 84153

== ENCOUNTER 2023-08-12 09:12 | Outpatient (OUT) | payer MEDICARE, SELFPAY ==
[2023-08-12 10:05] LABS: Basophils Percent Auto 0.4 % (0.2-2.0); Eosinophils Absolute Auto 0.4 10^3/uL (0.0-0.7); Eosinophils Percent Auto 4.3 % (0.9-7.0); Hematocrit 42.2 % (42.0-54.0); Hemoglobin 13.8 g/dL (14.0-18.0); Immature Granulocytes Abs Auto 0.03 10^3/uL (0.00-0.03); Immature Granulocytes Pct Auto 0.3 % (0.0-0.5); Lymphocytes Absolute Auto 1.4 10^3/uL (1.2-3.8); Lymphocytes Percent Auto 14.3 % (20.5-60.0); Mean Corpuscular HGB Conc 32.7 g/dL (29.9-35.2); Mean Corpuscular Hemoglobin 30.5 pg (25.9-34.0); Mean Corpuscular Volume 93.2 fL (80.0-94.0); Mean Platelet Volume 11.5 fL (9.5-13.5); Monocytes Absolute Auto 1.1 10^3/uL (0.3-0.8); Monocytes Percent Auto 10.8 % (1.7-12.0); Neutrophils Absolute Auto 6.9 10^3/uL (1.4-6.5); Neutrophils Percent Auto 69.9 % (43.0-75.0); Platelet Count 308 10^3/uL (150-450); Red Blood Count 4.53 10^6/uL (4.70-6.10); Red Cell Distribution Width 13.6 % (11.0-15.0); White Blood Count 9.9 10^3/uL (4.0-11.0)
[2023-08-12 10:30] LABS: Estimated Average Glucose 126 mg/dL
[2023-08-12 10:32] LABS: Microalbumin Urine Random <1.3 mg/dL (<=30.0)
[2023-08-12 11:10] LABS: Alanine Aminotransferase 14 U/L (16-63); Albumin Globulin Ratio 0.8; Albumin Level 3.3 g/dL (3.4-5.0); Alkaline Phosphatase 130 U/L (46-116); Anion Gap 15.5; Aspartate Amino Transferase 13 U/L (15-37); BUN Creatinine Ratio 28.4; Bilirubin Total 0.7 mg/dL (0.2-1.0); Calcium 9.1 mg/dL (8.5-10.1); Carbon Dioxide 24.4 mmol/L (21.0-32.0); Chloride 104 mmol/L (98-107); Chol HDL Ratio 4.3; Cholesterol 182 mg/dL (<=200); Estimated GFR (African America >60 (>=60); Estimated GFR (Non-African Ame >60 (>=60); Globulin 4.4 g/dL; Glucose 115 mg/dL (74-106); HDL Cholesterol 42 mg/dL (40-60); Potassium 3.9 mmol/L (3.5-5.1); Sodium 140 mmol/L (136-145); Total Protein 7.7 g/dL (6.4-8.2); Triglycerides 95 mg/dL (<=150)
== END 2023-08-12 09:13 | disposition home or self-care (01) ==
LOC: LAB 09:13
PROVIDERS: PCP Internal Medicine; Visit Provider Internal Medicine
DX: R73.01 Impaired fasting glucose (principal); R97.21 Rising PSA following treatment for malignant neoplasm of prostate; I10 Essential (primary) hypertension; M47.816 Spondylosis without myelopathy or radiculopathy, lumbar region; K21.00 Gastro-esophageal reflux disease with esophagitis, without bleeding
CPT/HCPCS: 36415; 80053; 80061; 82043; 83036; 84153; 85025

== ENCOUNTER 2023-11-29 11:06 | Outpatient (OUT) | payer MEDICARE, SELFPAY ==
--- OUTSIDE RECORDS SUMMARY | 2023-11-29 11:12 | XMS_ITS | CCD ---
Author Organization [facility] CliniSymi Care Team Providers Care Supervisor Hand Silvering Name Role Phone ENGELER, G KEYSHAWN Unavailable [...] ENGELER, G KEYSHAWN Unavailable Unavailable CHINO MCGINNIS (ENGINEERING EQUIPMENT OPERATOR) Unavailable Unavailabl e ENGELER, G KEYSHAWN Unavailable Unavailable ENGELER, G KEYSHAWN Unavailable Unavailable ENGELER, G KEYSHAWN Unavailable Unavailable CHINO MCGINNIS (ENGINEERING EQUIPMENT OPERATOR) Unavailable Unavailabl e ENGELER, G KEYSHAWN Unavailable Unavailable SHAUN, DR HUSAIN Primary Care Unavailable BALL, DR HUSAIN Consulting Unavailable BALL, DR HUSAIN Attending Unavailable BALL, DR HUSAIN Admitting Unavailable Ziebfrancheska, DR Chung Consulting Unavailable JOSE, DR SMITH Admitting Unavailable GARCIA, DR SMITH Consulting Unavailable GARCIA, DR SMITH Attending Unavailable BALL, DR HUSAIN Primary Care Unavailable BALL, DR HUSAIN Consulting Unavailable BALL, DR HUSAIN Attending Unavailable BALL, DR HUSAIN Admitting Unavailable BALL, DR HUSAIN Primary Care Unavailable Zieber, DR Chung Consulting Unavailable JOSE, DR SMITH Admitting Unavailable GARCIA, DR SMITH Consulting Unavailable GARCIA, DR SMITH Attending Unavailable BALL, DR HUSAIN Primary Care Unavailable BALL, DR HUSAIN Primary Care Unavailable BALL, DR HUSAIN Consulting Unavailable BALL, DR HUSAIN Attending Unavailable BALL, DR HUSAIN Admitting Unavailable Ball, Alpesh Unavailable DO Alpesh Dunn Primary Care Provider MD Marc Mckinney Admit Provider MD Marc Mckinney Attending Provider [phone] LAQUITA Joshi Other Provider Unavailable LAQUITA Samuels Other Provider Unavailable LAQUITA Goznalez Other Provider Unavailable LAQUITA Dawkins Other Provider Unavailable LAQUITA Rendon Other Provider Unavailable LAQUITA Leyva Other Provider Unavailable MD Yadiel Yanez Other Provider SONAM Gan Other Provider [phone] DO Jacquie Cox Other Provider MD Timi Mercado Other Provider DO Sherwin Cavanaugh Other Provider MD Daniel Carnes Other Provider [phone] MD Flower Hendrickson Other Provider SONAM Bui Other Provider MD Rosamaria Gregory Other Provider MD Ga Barnett Other Provider MD Mario Merino Other Provider MD Kaylie Brower Other Provider DO Dm Seo Other Provider MD Lenin Napier Other Provider MD Julian Maurice Other Provider KARYNA Liao Other Provider MD Yordan Bowen Other Provider MD Juan Espinoza Other Provider MD Joss Michelle Other Provider MD Nathaniel Luna Other Provider DO Acacia Palacio Other Provider DO Hayder Suazo Other Provider DO Shorty Espino Other Provider SONAM Yin Other Provider DO Fausto Wyatt Other Provider MD Yuko Tavera Other Provider SONAM Padilla Other Provider SONAM Brambila Other Provider [phone] MD Katina Grimm Other Provider MD Anatoly Ortiz Other Provider [phone] SONAM Hope Other Provider [phone] DO Slim Yayoni Other Provider LAQUITA Flood Other Provider Unavailable Jackson Ballard Attending Unavailable Alpesh Dunn Primary Care Unavailable Marc Mckinney Admitting UnavailNaheed Ward Consulting Unavailable Mariza Samuels Consulting Unavailable Quyen Gonzalez Consulting Unavailable Elizabeth Dawkins Consulting Unavailable Justice Bailey Consulting Unavailable Swathi Leyva Consulting Unavailable Yadiel Yanez Consulting Unavailable Yi Gan Consulting Unavailable Jacquie Cox Consulting Unavailable Timi Mercado Consulting Unavailable Sherwin Cavanaugh Consulting Unavailabl [place] Consulting Unavailable Flower Hendrickson Consulting Unavailable Crista Bui Consulting Unavailabl e Rosamaria Gregory Consulting Unavailable Ga Barnett Consulting Unavailable Mario [...] napier Consulting Unavailable Fausto Wyatt Consulting Unavailable DaromaYuko no Consulting Unavailable Patti Padilla Consulting Unavailable Esther Brambila Consulting Unavailable Alahmjosé antonio, Katina Consulting Unavailable Anatoly Ortiz Consulting Unavailable Taryn Hope Consulting Unavailable Vlad Smalls Consulting Unavailable Tonya Flood Consulting Unavailable Juan Carlos Vines Attending Unavailable Yael Agrawal Attending Unavailable JOSE, Luis No Attending Unavailable JOSE, Luis No Attending Unavailable JOSE, Luis No Attending Unavailable JOSE, Luis No Attending Unavailable JOSE, Luis No Attending Unavailable STELLA, MIA LINN Referring Unavaila ble STELLA, MIA LINN Attending Unavaila ble LAURA, FLORIAN A Referring Unavailable SANCHEZ, FLORIAN A Referring Unavailable SANCHEZ, FLORIAN A Referring Unavailable PAMELA TOURE Admitting Unavailable PAMELA TOURE Attending Unavailable FADYSUZANNE BROOKS Consulting Unavailable PAMELA TOURE Consulting Unavailable DENZEL GOMEZ Consulting Unavailable Medications Current Medications Medication Drug Class(es) Dates Sig (Normalized) Sig (Original) acetaminophen 500 mg oral tablet (4 sources) Start: 02-02-2023 take 500 mg by mouth every four hours Acetaminophen Active 500 MG PO Q4H 0 February 02, 2023 12:00am take 1 capsule by mo uth every four hours as needed for pain [...] 2023 8:10am take 1 capsule by mo [facility] every twenty-four hours Tamsulosin HCl 0.4 MG 1 capsule Orally Once a day Active 24 hr tolterodine tartrate 4 mg extended release oral capsule (10 sources) Cholinergic Muscarinic Antagonist Start: 01-19-2023 End: 02-02-2023 take 4 mg by mouth once daily Tolterodine Active 4 MG PO Daily 30 February 02, 2023 8:10am Completed/Discontinued Medications Medication [...] site] Episodic Other aftercare (2 sources) Other manager terminal (current) drug therapy; Translations: [[facility] CURRENT DRUG THERAPY] Onset: 07-23-2021 Episodic Other [...] Test Name Value Interpretation Reference Range Facility XR FEMUR RIGHT (MIN 2 VIEWS) on 11-14-2023 XR FEMUR RIGHT (MIN 2 VIEWS) History: Right femur IMN Comparison: 05/19/2023 Findings: 2 views (AP, lateral) of the right femur demonstrating right femoral shaft fracture status post IMN. Significant callus formation consolidation can be seen at the fracture site. Fracture line is still visible though. Most distal screw in IMN does appear to have bent. Small movement of the nail with the screw in the oblong hole at the most proximal aspect can be seen. Second most proximal screw is almost 2/3 displaced. Otherwise alignment is well-maintained. Prior retained hardware from previous ORIF can be seen. Total knee arthroplasty with maintained alignment from previous and no obvious signs of loosening. Impression: Second most proximal screw does appear to have displaced almost 2/3. Healing right femoral shaft fracture status post IMN. Most distal screw does appear to have bent. Stable previous hardware and total knee arthroplasty. Interpreted by: Florian Sanchez DO Signed by: Florian Sanchez DO 11/14/23 Final result Normal [facility] Ambulatory Visit Summaryon 0 08-15-2023 Ambulatory Visit Summary Ambulatory Visit Summary PARK GUIDRY :1940 Visit Date:08/15/2023 Ambulatory Visit Instructions Your Diagnosis Rising PSA following treatment for malignant neoplasm of prostate Urge incontinence BPH with urinary obstruction Your Care Team Attending Physician - JOSE LYNN, Luis No Primary Care Physician - ALPESH DUNN DO This Is Your Medications List tamsulosin (Flomax 0.4 mg Cap) tolterodine (tolterodine 2 mg Cap-ER) tolterodine (tolterodine 4 mg Cap-ER) Contact prescribing physician if questions or concerns alprazolam (alprazolam 0.25 mg Tab) amlodipine enzalutamide meloxicam (Mobic) Procedures Performed Radiofrequency ablation of medial branch [...] total knee. Discharge Vitals Heart Rate (Peripheral) 98 Respiratory Rate 16 Blood Pressure 133/85 Height 170 cm Height 67 in Weight 90 kg Weight 198 lb BMI 31.14 What to do next Scheduled Follow-Up Appointments Tuesday 11:30 AM EDT Where: [facility] Physical Tx Tuesday 11:30 AM EDT Where: [facility] Physical Tx Tuesday 10:00 AM EDT Where: [facility] Physical Tx 2023 11:30 AM EDT Where: [facility] Physical Tx Tuesday 11:30 AM EDT Where: [facility] Physical Tx 2023 10:45 AM EDT Where: [facility] Physical Tx Tuesday 11:15 AM EDT Where: [facility] You Need to Schedule the Following Appointments Follow Up with JOSE LYNN, GLORIA Brooks When: Comments: 6 mos w/ PSA and Lupron Where: [facility] [address], [place] [address]- [phone] Medications What How Much When Instructions Unchanged tamsulosin (Flomax 0.4 mg Cap) 1 Capsules By Mouth 2 times a day Unchanged tolterodine (tolterodine 2 mg Cap-ER) 1 Capsules By Mouth Every day Duration: 90 Days Unchanged tolterodine (tolterodine 4 mg Cap-ER) 1 Capsules By Mouth Every day Duration: 90 Days Unchanged alprazolam (alprazolam 0.25 mg Tab) 1 Tablets By Mouth At bedtime Contact prescribing physician if questions or concerns Unchanged amlodipine 5 Milligram By Mouth Every day Contact prescribing physician if questions or concerns Unchanged enzalutamide 160 Milligram By Mouth Contact prescribing physician if questions or concerns Unchanged meloxicam (Mobic) 15 Milligram By Mouth Every day Contact prescribing physician if questions or concerns Medications and Immunizations Administered Given Lupron Depot 45 mg/6 months intramuscular injection, extended release, 45 mg, IntraMuscular. For: Rising PSA following treatment for malignant neoplasm of prostate Allergies No Known Allergies Problems Ongoing - Any problem that you are currently receiving treatment for. Arthritis BPH with urinary obstruction Feeling of incomplete bladder emptying Frequency of urination Hematuria Insomnia Knee osteoarthritis Lower back pain Nocturia Personal history of prostate cancer Post-void dribbling Rising PSA following treatment for malignant neoplasm of prostate Urge incontinence Urge incontinence of urine Urgency of urination Urinary urgency Weak urine stream Historical - Any problem that you are no longer receiving treatment for. Elevated PSA Insomnia Prostate cancer Prostate cancer Patient Survey You may receive a survey via text or e-mail asking about your office visit. Please share your experience with us by completing your survey. We appreciate your feedback and thank you for choosing us for your care. Education Materials Hormone Suppression Therapy for Prostate Cancer Hormone suppression therapy is a treatment for prostate cancer that can help slow the growth of cancer cells in the prostate gland. It is also called androgen deprivation therapy (ADT) or androgen suppression therapy. Hormone suppression therapy targets male sex hormones (androgens) in the body that help cancer cells grow. Hormone suppression therapy alone will not cure prostate cancer, but it can slow the growth of cancer cells and may shrink tumors over time. Your health care provider can help you find the best treatment that fits your lifestyle. Hormone suppression therapy may be used in the following cases: ? When prostate cancer has spread too far to other places in the body a (more content not included)... Normal [facility] Urology Office/Clinic Noteon 08-15-2023 Urology Office/Clinic Note Urology Office/Clinic Note Chief Complaint 6m PSA & Lupron Inj HPI Staff Pt here today with his son. 6 mos w/ PSA and Lupron. (auth approved & in chart) Dx: rising PSA following tx for malignant neoplasm of prostate, BPH with obstruction, UUI. *Enzalutamide 160 mg qd, Tamsulosin 0.4mg bid, and increased Tolterodine ER from 4mg to 6mg qd at prior OV. PSA 08/12/23- <0.13 Last Lupron 02/21/23 Denies complaints with stream. Feels empty. Still having some urge incontinence. No difference with increased dosage of Tolterodine. Has been having tenderness to both testicles. Has been going on for a while. History of Present Illness Tests reviewed: reviewed PSA I have reviewed the previous health [...] HPI. Physical Exam Vitals & Measurements HR: 98(Peripheral) RR: 16 BP: 133/85 HT: 67 in HT: 170 cm WT: 90 kg WT: 198 lb BMI: 31.14 General Appearance: alert, no distress, well nourished, well developed male. Assessment/Plan Pt here with his son today. 1. Rising PSA following treatment for malignant neoplasm of prostate (R97.21: Rising PSA following treatment for malignant neoplasm of prostate) PSA: 01/19/21 - 0.10 07/22/21 - 3.30 01/20/22 - 0.52 07/21/22 - 1.07 01/12/23 - <0.13 08/12/23 - <0.13 TRUS/bx 08/24/16 - Pj 7 (4+3) x 1 core 9% of core involvement. [place] 7 (3+4) x 1 core, 35% of core involvement. iPSA 35.73 & 10%. EBRT 2017. Brachytherapy 12/23/16. First Lupron inj 07/21/20. Most recent Lupron 02/21/23. Taking Enzalutamide 160 mg (4 tabs of 40 mg) qd, started 07/26/22. PSA remains nearly undetectable. Will continue to monitor. Lupron 45 mgIM injection given today with no complications. Right glute. Has occasional hot flashes. -Cont Enzalutamide -PSA and Lupron in 6 mos 2. Urge incontinence (N39.41: Urge incontinence) Increased Tolterodine ER from 4mg to 6mg qd at prior OV. Reports difficulty controlling BMs and urination. Still having occasional accidents. Wears pads. Advised pt to stop taking 2mg dosage given no sx improvement. Pt is agreeable. -Decrease Tolterodine ER 6mg back to 4mg qd -If no sx improvement with lower dosage, can consider d/c Tolterodine 3. BPH with urinary obstruction (N40.1: Benign prostatic hyperplasia with lower urinary tract symptoms) Taking Tamsulosin 0.4mg bid. Good stream. Unsure if he empties but states he does not have to void for at least another hour after voiding. Getting up q1hr at night, not very bothersome. -Cont Tamsulosin wo changes Follow-up With When Contact Information JOSE LYNN, Luis No, URL [facility] [address], [place] [address]- [phone] Additional Instructions: 6 mos w/ PSA and Lupron Patient Education Hormone Suppression Therapy for Prostate Cancer I, Sarah Beth Greene, personally scribed for Dr. Garcia on 08/15/2023 10:31:52. . Documentation recorded by the scribeSarah Beth, accurately reflects the services(s) I performed and decisions made by me. Authenticated by Dr. Garcia on 08/15/2023 10:34:31. Problem List/Past Medical History Ongoing Arthritis BPH [...] Elevated PSA Insomnia Prostate cancer Prostate cancer Procedure/Surgical History Radiofrequency ablation of medial branch of lumbar [...] OPEN REDUCCTION RIGHT FEMUR, rt total knee. M (more content not included)... [facility] Comment on above: Result Comment: Elec tronically Signed By: Luis GARCIA MD\.br\Date and Time Signed: 08/15/23 10:34 EDT\.br\Electronically Co-Signed By: Sarah Beth Greene\.br\Date and Time Co-Signed: 08/15/23 10:32 EDT PT - Otheron 08-03-2023 PT - Other Spoke with pt by patrick maynard. Pt reports seeing his surgeon yesterday and having a 5 screw removed from his right hip while in the office. Pt states this had loosened at some point and this was the cause of his increased pain. Pt requests to return to PT on 08/09/23 and would like to keep activity light. [facility] PT - Otheron 07-29-2023 PT - Other Pt called to inform PT that he is scheduled to see Dr Douglas next Tuesday for a consult for his continued right hip pain. [facility] Nonvisit Note - PTon 024 Nonvisit [...] monitor if this helps his pain reports. [facility] PT - Assessmentson 4 PT - Assessments [id number]#1.00TIFF [facility] PT - Assessmentson 4 PT - Assessments [id number]#1.00TIFF [facility] XR FEMUR RIGHT (MIN 2 VIEWS) on 06-08-2023 XR FEMUR RIGHT (MIN 2 VIEWS) Interpreted by: Mia Douglas, Preliminary result [facility] PT - [place] 06-03-2023 PT - Orders [id number]#1.00TIFF [facility] Consent for Treatmenton 05-09 Consent for Treatment [id number]#1.00TIFF [facility] PT - Assessmentson 4 PT - Assessments [id number]#1.00TIFF [facility] PT - Consentson 05-31-2023 PT - Consents [id number]#1.00TIFF [facility] PT - Home Exercise Programon 05-31-2023 PT - Home Exercise Program [id number]#1.00TIFF Normal [facility] PT - [place] 05-24-2023 PT - Orders [id number]#1.00TIFF Normal [facility] PT - Otheron 05-24-2023 PT - Other [id number]#1.00TIFF Normal [facility] PT - [place] 05-23-2023 PT - Orders [id number]#1.00TIFF [facility] Ambulatory Visit Summaryon 0 03-21-2023 Ambulatory Visit Summary PARK GUIDRY :1940 Visit Date:03/21/2023 Ambulatory Visit Instructions Your Diagnosis Feeling of incomplete bladder emptying Your Care Team Attending Physician - JOSE LYNN, Luis No Primary Care Physician - SHAUN GORE, ALPESH This Is Your Medications List alprazolam (alprazolam [...] Luis GARCIA MD Where: [facility] Ambulatory Visit Summaryon 0 02-21-2023 Ambulatory Visit Summary PARK GUIDRY :1940 Visit Date:02/21/2023 Ambulatory Visit Instructions Your Diagnosis Rising PSA following treatment for malignant neoplasm of prostate BPH with urinary obstruction Urge incontinence Tests Performed Urnls Dip Stick Auto w/o Microscopy POC 93501 Your Care Team Attending Physician - Luis [...] Luis GARCIA MD Where: [facility] Patient Educationon 02-21-19 24 Patient Education Oncology Prostate Cancer Screening Prostate [...] Where to find more information ? The [place] [employer]: www.cancer.org ? [place] [employer]: www.auanet.org Contact a health care [...] adds flu (more content not included)... Normal [facility] Urology Office/Clinic Noteon 02-21-2023 Urology Office/Clinic [...] 1.07 01/12/23 - <0.13 TRUS/bx 08/24/16 - [place] 7 (4+3) x 1 core 9% of [...] Follow-up With When Contact Information JOSE LYNN, Lusi No, URL [facility] [address], [place] [address]- [phone] Additional Instructions: 6 mos w/ Lupron and PSA Patient Education Prostate Cancer Screening I, Sarah Beth Greene, personally scribed for Dr. Garcia on 02/21/2023 13:17:39. . Documentation recorded by the scribe, Sarah Beth Greene, accurately reflects the services(s) I performed and [...] cancer Procedure/Surgi (more content not included)... Normal [facility] Comment on above: Result Comment: Elec tronically Signed By: Luis GARCIA MD\.br\Date and Time Signed: 02/21/23 13:19 EST\.br\Electronically Co-Signed By: Sarah Beth Greene\.br\Date and Time Co-Signed: 02/21/23 13:18 EST Glucose Glucometer (BldC) [M ass/Vol]Ordered By: Marc Mckinney on 02-02-2023 Glucose [Mass/Vol] 115 mg/dL [facility] Comment on above: Random Glucose Refer ence Range is dependent on time and content of last meal. Glucose of more than 200 mg/dL in a nonstressed, ambulatory subject supports the diagnosis of Diabetes Mellitus. Glucose Poct Glucometerson 1 04-05-2022 Glucose [Mass/Vol] 115 mg/dL Normal [facility] Comment on above: Result Comment: [place] om Glucose Reference Range is dependent on time and content of last meal. Glucose of more than 200 mg/dL in a nonstressed, ambulatory subject supports the diagnosis of Diabetes Mellitus. PERFORMED BY: [facility] [address] PATHOLOGIST ALCOHOLISM WORKER ATUL TRACY M.D. Performed By: #### G LULS #### Point of Care testing , Glucose Poct Glucometerson 1 04-04-2022 Glucose [Mass/Vol] 135 mg/dL Normal [facility] Comment on above: Result Comment: [place] om Glucose Reference Range is dependent on time and content of last meal. Glucose of more than 200 mg/dL in a nonstressed, ambulatory subject supports the diagnosis of Diabetes Mellitus. PERFORMED BY: [address] [place] [address] PATHOLOGIST ALCOHOLISM WORKER ATUL TRACY M.D. Performed By: #### G LULS #### Point of Care testing , Glucose Poct Glucometerson 1 04-03-2022 Glucose [Mass/Vol] 109 mg/dL Normal [facility] Comment on above: Result Comment: [place] om Glucose Reference Range is dependent on time and content of last meal. Glucose of more than 200 mg/dL in a nonstressed, ambulatory subject supports the diagnosis of Diabetes Mellitus. PERFORMED BY: [address] [place] [id number] PATHOLOGIST ALCOHOLISM WORKER ATUL TRACY M.D. Performed By: #### G LULS #### Point of Care testing , Glucose Poct Glucometerson 1 04-02-2022 Glucose [Mass/Vol] 105 mg/dL Normal [facility] Comment on above: Result Comment: [place] om Glucose Reference Range is dependent on time and content of last meal. Glucose of more than 200 mg/dL in a nonstressed, ambulatory subject supports the diagnosis of Diabetes Mellitus. PERFORMED BY: [address] [place] [id number] PATHOLOGIST ALCOHOLISM WORKER ATUL TRACY M.D. Performed By: #### G LULS #### Point of Care testing , Basic Metabolic Panelon 12-2 Anion gap [Moles/Vol] 13.9 mmol/L Normal 6.0-15.0 [facility] Comment on above: Performed By: #### G LULS #### Point of Care testing , Calcium [Mass/Vol] 8.5 mg/dL Low 8.6-10.3 [facility] Comment on above: Performed By: #### G LULS #### Point of Care testing , Chloride [Moles/Vol] 105 mmol/L Normal 98-107 [facility] Comment on above: Performed By: #### G LULS #### Point of Care testing , CO2 [Moles/Vol] 23.3 mmol/L Normal 21.0-31.0 [place] Comment on above: Performed By: #### G LULS #### Point of Care testing , Creatinine [Mass/Vol] 0.71 mg/dL Normal 0.70-1.30 [facility] Comment on above: Performed By: #### G LULS #### Point of Care testing , Creatinine Clr Calc Pharmacy 73.17 [facility] Comment on above: Result Comment: PERF ORMED BY: [facility] [address] [place] [address] PATHOLOGIST ALCOHOLISM WORKER ATUL TRACY M.D. Performed By: #### G LULS #### Point of Care testing , GFR/1.73 sq M.predicted MDRD (S/P/Bld) [Vol rate/Area] mL/min/{1.73_m2} [facility] Comment on above: Performed By: #### G LULS #### Point of Care testing , Glucose [Mass/Vol] 102 mg/dL High 70-100 [facility] Comment on above: Result Comment: [place] Glucose Reference Range is dependent on time and content of last meal. Glucose of more than 200 mg/dL in a nonstressed, ambulatory subject supports the diagnosis of Diabetes Mellitus. ADA recommended reference range Performed By: #### G LULS #### Point of Care testing , Potassium [Moles/Vol] 4.2 mmol/L Normal 3.5-5.1 [facility] Comment on above: Performed By: #### G LULS #### Point of Care testing , Sodium [Moles/Vol] 138 mmol/L Normal 136-145 [facility] Comment on above: Performed By: #### G LULS #### Point of Care testing , Urea nitrogen [Mass/Vol] 22 mg/dL Normal 7-25 [facility] Comment on above: Performed By: #### G LULS #### Point of Care testing , Basophils Auto (Bld) [#/Vol] Ordered By: Ashlyn Donato on 01-29-2023 Basophils (Bld) [#/Vol] 0.1 10*3/uL 0.0-0.2 [facility] Basophils/100 WBC Auto (Bld) Ordered By: Ashlyn Donato on 01-29-2023 Basophils/100 WBC (Bld) 1.2 % . [facility] Calcium [Mass/volume] in Ser um or PlasmaOrdered By: Ashlyn Donato on 01-29-2023 Calcium [Mass/Vol] 8.5 mg/dL 8.6-10.3 [facility] Carbon dioxide, total [Moles /volume] in Serum or PlasmaOrdered By: Ashlyn Donato on 01-29-2023 CO2 [Moles/Vol] 23.3 mmol/L 21.0-31.0 [place] Chloride [Moles/volume] in S edith or PlasmaOrdered By: Ashlyn Donato on 01-29-2023 Chloride [Moles/Vol] 105 mmol/L 98-107 [facility] Complete Blood Count Auto Di ffon 01-29-2023 Basophils (Bld) [#/Vol] 0.1 10*3/uL Normal 0.0-0.2 [facility] Comment on above: Result Comment: PERF ORMED BY: [facility] [address] [place] [address] PATHOLOGIST ALCOHOLISM WORKER ATUL TRACY M.D. Performed By: #### G LULS #### Point of Care testing , Basophils/100 WBC (Bld) 1.2 % Normal . [facility] Comment on above: Performed By: #### G LULS #### Point of Care testing , Eosinophils (Bld) [#/Vol] 0.4 10*3/uL Normal 0.0-0.45 [facility] Comment on above: Performed By: #### G LULS #### Point of Care testing , Eosinophils/100 WBC (Bld) 3.8 % Normal . [facility] Comment on above: Performed By: #### Marylou MCCORMACK #### Point of Care testing , Erythrocyte distribution width (RBC) [Ratio] 14.0 % Normal 12.0-14.8 [facility] Comment on above: Performed By: #### G DICKLS #### Point of Care testing , Hematocrit (Bld) [Volume fraction] 30.8 % Low 38.8-50.0 [facility] Comment on above: Performed By: #### G DICKLS #### Point of Care testing , Hemoglobin (Bld) [Mass/Vol] 10.2 g/dL Low 13.0-17.0 [facility] Comment on above: Performed By: #### G DICKLS #### Point of Care testing , Lymphocytes (Bld) [#/Vol] 1.0 10*3/uL Normal 1.00-4.8 [facility] Comment on above: Performed By: #### Marylou JENNINGSLS #### Point of Care testing , Lymphocytes/100 WBC (Bld) 9.9 % Normal . [facility] Comment on above: Performed By: #### Marylou JENNINGSLS #### Point of Care testing , MCH (RBC) [Entitic mass] 30.0 pg Normal 27.5-35.2 [facility] Comment on above: Performed By: #### G DICKLS #### Point of Care testing , MCV (RBC) [Entitic vol] 90.4 fL Normal 83.5-101 [facility] Comment on above: Performed By: #### G DICKLS #### Point of Care testing , Mean Corpuscular HGB Conc 33.2 g/dL Normal 32.5-35.6 [facility] Comment on above: Performed By: #### G DICKLS #### Point of Care testing , Monocytes (Bld) [#/Vol] 1.1 10*3/uL High 0.0-0.8 [facility] Comment on above: Performed By: #### G KSENIA #### Point of Care testing , Monocytes/100 WBC (Bld) 10.6 % Normal . [facility] Comment on above: Performed By: #### G LULS #### Point of Care testing , Neutrophils (Bld) [#/Vol] 7.7 10*3/uL Normal 1.8-7.7 [facility] Comment on above: Performed By: #### G DICKLS #### Point of Care testing , Neutrophils/100 WBC (Bld) 74.5 % Normal . [facility] Comment on above: Performed By: #### G LULS #### Point of Care testing , NRBC% 0.1 /100{WBC} Normal 0-0.5 [facility] Comment on above: Performed By: #### G DICKLS #### Point of Care testing , Platelet mean volume (Bld) [Entitic vol] 9.0 fL Normal 6.6-10.1 [facility] Comment on above: Performed By: #### G DICKLS #### Point of Care testing , Platelets (Bld) [#/Vol] 353 10*3/uL Normal 150-450 [facility] Comment on above: Performed By: #### G DICKLS #### Point of Care testing , RBC (Bld) [#/Vol] 3.41 10*6/uL Low 3.90-5.60 [facility] Comment on above: Performed By: #### G DICKLS #### Point of Care testing , WBC (Bld) [#/Vol] 10.3 10*3/uL Normal 4.1-10.5 [facility] Comment on above: Performed By: #### G LULS #### Point of Care testing , Creatinine [Mass/volume] in Serum or PlasmaOrdered By: Ashlyn Donato on 01-29-2023 Creatinine [Mass/Vol] 0.71 mg/dL 0.70-1.30 [facility] Eosinophils Auto (Bld) [#/Vo l]Ordered By: Ashlyn Donato on 01-29-2023 Eosinophils (Bld) [#/Vol] 0.4 10*3/uL 0.0-0.45 [facility] Eosinophils/100 WBC Auto (Bl d)Ordered By: Ashlyn Donato on 01-29-2023 Eosinophils/100 WBC (Bld) 3.8 % . [facility] Erythrocyte distribution wid th Auto (RBC) [Ratio]Ordered By: Ashlyn Dontao on 01-29-2023 Erythrocyte distribution width (RBC) [Ratio] 14.0 % 12.0-14.8 [facility] Glucose Poct Glucometerson 1 04-01-2022 Glucose [Mass/Vol] 111 mg/dL Normal [facility] Comment on above: Result Comment: [place] Glucose Reference Range is dependent on time and content of last meal. Glucose of more than 200 mg/dL in a nonstressed, ambulatory subject supports the diagnosis of Diabetes Mellitus. PERFORMED BY: [facility] [address] [place] [address] PATHOLOGIST ALCOHOLISM WORKER ATUL TRACY M.D. Performed By: #### G LUKORIN #### Point of Care testing , Glucose [Mass/volume] in Ser um or PlasmaOrdered By: Ashlyn Donato on 01-29-2023 Glucose [Mass/Vol] 102 mg/dL 70-100 [facility] Comment on above: ADA recommended refe rence rangeRandom Glucose Reference Range is dependent on time and content of last meal. Glucose of more than 200 mg/dL in a nonstressed, ambulatory subject supports the diagnosis of Diabetes Mellitus. Hematocrit Auto (Bld) [Volum e fraction]Ordered By: Ashlyn Donato on 01-29-2023 Hematocrit (Bld) [Volume fraction] 30.8 % 38.8-50.0 [facility] Hemoglobin [Mass/volume] in BloodOrdered By: Ashlyn Donato on 01-29-2023 Hemoglobin (Bld) [Mass/Vol] 10.2 g/dL 13.0-17.0 [facility] Leukocytes [#/volume] correc portia for nucleated erythrocytes in Blood by Automated counOrdered By: Ashlyn Donato on 01-29-2023 WBC corrected for nucl RBC Auto (Bld) [#/Vol] 10.3 10*3/uL 4.1-10.5 [facility] Lymphocytes Auto (Bld) [#/Vo l]Ordered By: Ashlyn Donato on 01-29-2023 Lymphocytes (Bld) [#/Vol] 1.0 10*3/uL 1.00-4.8 [facility] Lymphocytes/100 WBC Auto (Bl d)Ordered By: Ashlyn Donato on 01-29-2023 Lymphocytes/100 WBC (Bld) 9.9 % . [facility] MCH Auto (RBC) [Entitic mass ]Ordered By: Ashlyn Donato on 01-29-2023 MCH (RBC) [Entitic mass] 30.0 pg 27.5-35.2 [facility] MCHC Auto (RBC) [Mass/Vol]Or dered By: Ashlyn Donato on 01-29-2023 MCHC (RBC) [Mass/Vol] 33.2 g/dL 32.5-35.6 [facility] MCV Auto (RBC) [Entitic vol] Ordered By: Ashlyn Donato on 01-29-2023 MCV (RBC) [Entitic vol] 90.4 fL 83.5-101 [facility] Monocytes Auto (Bld) [#/Vol] Ordered By: Ashlyn Donato on 01-29-2023 Monocytes (Bld) [#/Vol] 1.1 10*3/uL 0.0-0.8 [facility] Monocytes/100 WBC Auto (Bld) Ordered By: Ashlny Donato on 01-29-2023 Monocytes/100 WBC (Bld) 10.6 % . [facility] Neutrophils Auto (Bld) [#/Vo l]Ordered By: Ashlyn Donato on 01-29-2023 Neutrophils (Bld) [#/Vol] 7.7 10*3/uL 1.8-7.7 [facility] Neutrophils/100 WBC Auto (Bl d)Ordered By: Ashlyn Donato on 01-29-2023 Neutrophils/100 WBC (Bld) 74.5 % . [facility] No Panel InformationOrdered By: Ashlyn Donato on 01-29-2023 Estimated GFR (CKD-EPI) > 60.0 mL/Min [facility] Creatinine Clearance (Chem 73.17 [facility] Nucleated erythrocytes [Pres ence] in Blood by Automated countOrdered By: Ashlyn Donato on 01-29-2023 Nucleated RBC Auto Ql (Bld) 0.1 /100{WBC} 0-0.5 [facility] Platelet mean volume Auto (B ld) [Entitic vol]Ordered By: Ashlyn Donato on 01-29-2023 Platelet mean volume (Bld) [Entitic vol] 9.0 fL 6.6-10.1 [facility] Platelets Auto (Bld) [#/Vol] Ordered By: Ashlyn Donato on 01-29-2023 Platelets (Bld) [#/Vol] 353 10*3/uL 150-450 [facility] Potassium [Moles/volume] in Serum or PlasmaOrdered By: Ashlyn Donato on 01-29-2023 Potassium [Moles/Vol] 4.2 mmol/L 3.5-5.1 [facility] RBC Auto (Bld) [#/Vol]Ordere d By: Ashlyn Donato on 01-29-2023 RBC (Bld) [#/Vol] 3.41 10*6/uL 3.90-5.60 [facility] Serum or plasma anion gap de terminationOrdered By: Ashlyn Donato on 01-29-2023 Anion gap [Moles/Vol] 13.9 mmol/L 6.0-15.0 [facility] Sodium [Moles/volume] in Ser um or PlasmaOrdered By: Ashlyn Donato on 01-29-2023 Sodium [Moles/Vol] 138 mmol/L 136-145 [facility] Urea nitrogen [Mass/volume] in Serum or PlasmaOrdered By: Ashlyn Donato on 01-29-2023 Urea nitrogen [Mass/Vol] 22 mg/dL 7-25 [facility] WBC Auto (Bld) [#/Vol]Ordere d By: Ashlyn Donato on 01-29-2023 WBC (Bld) [#/Vol] 10.3 10*3/uL 4.1-10.5 [facility] Glucose Poct Glucometerson 1 03-31-2022 Glucose [Mass/Vol] 114 mg/dL Normal [facility] Comment on above: Result Comment: [facility] Glucose Reference Range is dependent on time and content of last meal. Glucose of more than 200 mg/dL in a nonstressed, ambulatory subject supports the diagnosis of Diabetes Mellitus. PERFORMED BY: [place] [address] PATHOLOGIST ALCOHOLISM WORKER ATUL TRACY M.D. Performed By: #### G KSENIA #### Point of Care testing , Retail - Clinical Noteon Retail - Clinical Note [id number] Normal [facility] Glucose Poct Glucometerson 1 03-30-2022 Glucose [Mass/Vol] 101 mg/dL Normal [facility] Comment on above: Result Comment: [facility] Glucose Reference Range is dependent on time and content of last meal. Glucose of more than 200 mg/dL in a nonstressed, ambulatory subject supports the diagnosis of Diabetes Mellitus. PERFORMED BY: [place] [id number] PATHOLOGIST ALCOHOLISM WORKER ATUL TRACY M.D. Performed By: #### G KSENIA #### Point of Care testing , CT head/brain wo conon 01-26 CT head/brain wo [facility] Main [address] [address] [address] Scan Report Signed Patient: Park Guidry MR#: [id number] : 1940 Acct:[id number] Age/Sex: 82 / M ADM Date: 01/19/23 Loc: Room: 8C3060-7 Type: ADM IN Attending Dr: Marc Mckinney [...] La Fuente M.D.01/26/2023 7:21 AM Dictation Location: [place] [address] Transcribed By: GRISELDA 01/26/23720 Dictated By: Akiko De La Fuente MD 01/26/23716 Signed By: 01/26/23720 Normal [facility] Glucose Poct Glucometerson 1 03-29-2022 Glucose [Mass/Vol] 122 mg/dL Normal [facility] Comment on above: Result Comment: [place] Glucose Reference Range is dependent on time and content of last meal. Glucose of more than 200 mg/dL in a nonstressed, ambulatory subject supports the diagnosis of Diabetes Mellitus. PERFORMED BY: [place] [address] PATHOLOGIST ALCOHOLISM WORKER ATUL TRACY M.D. Performed By: #### G KSENIA #### Point of Care testing , A1C with Estimated Average G [facility] 01-25-2023 Glucose [Mass/Vol] 134 mg/dL Normal [facility] Comment on above: Result Comment: PERF ORMED BY: [place] [address] PATHOLOGIST ALCOHOLISM WORKER ATUL TRACY M.D. Performed By: #### A 1C [facility] #### [address] HbA1c (Bld) [Mass fraction] 6.3 % High 4.3-5.6 [facility] Comment on above: Result Comment: Incr eased risk for diabetes: 5.7 - 6.4 diabetes: >6.4 glycemic control for adults with diabetes: <7.0 Performed By: #### A 1C [facility] eA #### [facility] [address] Basic Metabolic Panelon 12- Anion gap [Moles/Vol] 10.1 mmol/L Normal 6.0-15.0 [facility] Comment on above: Performed By: #### C BC, BMP #### [facility] [address] Calcium [Mass/Vol] 8.5 mg/dL Low 8.6-10.3 [facility] Comment on above: Performed By: #### C BC, BMP #### [address] Chloride [Moles/Vol] 105 mmol/L Normal 98-107 [facility] Comment on above: Performed By: #### C BC, BMP #### [address] CO2 [Moles/Vol] 27.0 mmol/L Normal 21.0-31.0 [place] Comment on above: Performed By: #### C BC, BMP #### [address] Creatinine [Mass/Vol] 0.81 mg/dL Normal 0.70-1.30 [facility] Comment on above: Performed By: #### C BC, BMP #### [place] [address] [place] Creatinine Clr Calc Pharmacy 72.27 Normal [facility] Comment on above: Result Comment: PERF ORMED BY: [place] [address] PATHOLOGIST ALCOHOLISM WORKER ATUL TRACY M.D. Performed By: #### C BC, BMP #### [place] [address] [place] GFR/1.73 sq M.predicted MDRD (S/P/Bld) [Vol rate/Area] mL/min/{1.73_m2} Normal [facility] Comment on above: Performed By: #### C BC, BMP #### [facility] [address] Glucose [Mass/Vol] 130 mg/dL High 70-100 [facility] Comment on above: Result Comment: [place] Glucose Reference Range is dependent on time and content of last meal. Glucose of more than 200 mg/dL in a nonstressed, ambulatory subject supports the diagnosis of Diabetes Mellitus. ADA recommended reference range Performed By: #### C BC, BMP #### [facility] [address] Potassium [Moles/Vol] 4.1 mmol/L Normal 3.5-5.1 [facility] Comment on above: Performed By: #### C BC, BMP #### [place] [address] [place] Sodium [Moles/Vol] 138 mmol/L Normal 136-145 [facility] Comment on above: Performed By: #### C BC, BMP #### [place] [address] [place] Urea nitrogen [Mass/Vol] 23 mg/dL Normal 7-25 [facility] Comment on above: Performed By: #### C BC, BMP #### [address] Complete Blood Count Auto Di ffon 01-25-2023 Basophils (Bld) [#/Vol] 0.1 10*3/uL Normal 0.0-0.2 [facility] Comment on above: Result Comment: PERF ORMED BY: [place] [address] PATHOLOGIST ALCOHOLISM WORKER ATUL TRACY M.D. Performed By: #### C BC, BMP #### [place] [address] [place] Basophils/100 WBC (Bld) 1.1 % Normal . [facility] Comment on above: Performed By: #### C BC, BMP #### [facility] [address] Eosinophils (Bld) [#/Vol] 0.4 10*3/uL Normal 0.0-0.45 [facility] Comment on above: Performed By: #### C BC, BMP #### [facility] [address] Eosinophils/100 WBC (Bld) 4.3 % Normal . [facility] Comment on above: Performed By: #### C BC, BMP #### [address] Erythrocyte distribution width (RBC) [Ratio] 13.5 % Normal 12.0-14.8 [facility] Comment on above: Performed By: #### C BC, BMP #### [address] Hematocrit (Bld) [Volume fraction] 29.7 % Low 38.8-50.0 [facility] Comment on above: Performed By: #### C BC, BMP #### [address] Hemoglobin (Bld) [Mass/Vol] 10.0 g/dL Low 13.0-17.0 [facility] Comment on above: Performed By: #### C BC, BMP #### [address] Lymphocytes (Bld) [#/Vol] 0.9 10*3/uL Low 1.00-4.8 [facility] Comment on above: Performed By: #### C BC, BMP #### [address] Lymphocytes/100 WBC (Bld) 8.2 % Normal . [facility] Comment on above: Performed By: #### C BC, BMP #### [address] MCH (RBC) [Entitic mass] 30.2 pg Normal 27.5-35.2 [facility] Comment on above: Performed By: #### C BC, BMP #### [place] [address] [place] MCV (RBC) [Entitic vol] 89.9 fL Normal 83.5-101 [facility] Comment on above: Performed By: #### C BC, BMP #### [address] Mean Corpuscular HGB Conc 33.6 g/dL Normal 32.5-35.6 [facility] Comment on above: Performed By: #### C BC, BMP #### [address] Monocytes (Bld) [#/Vol] 0.9 10*3/uL High 0.0-0.8 [facility] Comment on above: Performed By: #### C YAKOV, BMP #### [address] Monocytes/100 WBC (Bld) 8.5 % Normal . [facility] Comment on above: Performed By: #### C YAKOV, BMP #### [address] Neutrophils (Bld) [#/Vol] 8.1 10*3/uL High 1.8-7.7 [facility] Comment on above: Performed By: #### C YAKOV, BMP #### [address] Neutrophils/100 WBC (Bld) 77.9 % Normal . [facility] Comment on above: Performed By: #### C YAKOV, BMP #### [address] NRBC% 0.1 /100{WBC} Normal 0-0.5 [facility] Comment on above: Performed By: #### C BC, BMP #### [address] Platelet mean volume (Bld) [Entitic vol] 9.2 fL Normal 6.6-10.1 [facility] Comment on above: Performed By: #### C BC, BMP #### [address] Platelets (Bld) [#/Vol] 298 10*3/uL Normal 150-450 [facility] Comment on above: Performed By: #### C YAKOV, LEROY #### [facility] [address] [place] [address] [place] RBC (Bld) [#/Vol] 3.30 10*6/uL Low 3.90-5.60 [facility] Comment on above: Performed By: #### C YAKOV, BMP #### [address] WBC (Bld) [#/Vol] 10.4 10*3/uL Normal 4.1-10.5 [facility] Comment on above: Performed By: #### C YAKOV, BMP #### [address] Glucose mean value [Mass/vol ume] in Blood Estimated from glycated hemoglobinOrdered By: Ashlyn Donato on 01-25-2023 Average glucose Estimated from glycated hemoglobin (Bld) [Mass/Vol] 134 mg/dL [facility] Hemoglobin A1c percentageOrd ered By: Ashlyn Donato on 01-25-2023 HbA1c (Bld) [Mass fraction] 6.3 % 4.3-5.6 [facility] Comment on above: Increased risk for d iabetes: 5.7 - 6.4diabetes: >6.4glycemic control for adults with diabetes: <7.0 XR ribs RT 2Von 01-21-2023 XR ribs RT 2V [facility] Main [place] [address] [place] [address] XRay Report Signed Patient: Park Guidry MR#: [id number] : 1940 Acct:[id number] Age/Sex: 82 / M ADM Date: 01/19/23 Loc: Room: 2U0178-7 Type: ADM IN Attending Dr: Marc Mckinney MD Copies to: MD Ashlyn Busby, SONAM Ordering Provider: Ashlyn Donato APRN Date of [...] Alonso Willis M.D.01/21/2023 4:33 PM Dictation Location: [place] [address] Transcribed By: GRISELDA 01/21/23 1633 Dictated By: Alonso Willis II, MD 01/21/23 1631 Signed By: 01/21/23 1633 Normal [facility] Alanine aminotransferase [En zymatic activity/volume] in Serum or PlasmaOrdered By: Marc Mckinney on 01-20-2023 ALT [Catalytic activity/Vol] 4 U/L 7-52 [facility] Albumin [Mass/volume] in Ser um or Plasma by Bromocresol green (BCG) dye binding methoOrdered By: Marc Mckinney on 01-20-2023 Albumin BCG dye [Mass/Vol] 3.0 g/dL 3.5-5.7 [facility] Alkaline phosphatase [Enzyma tic activity/volume] in Serum or PlasmaOrdered By: Marc Mckinney on 01-20-2023 ALP [Catalytic activity/Vol] 64 U/L 34-104 [facility] Aspartate aminotransferase [ Enzymatic activity/volume] in Serum or PlasmaOrdered By: Marc Mckinney on 01-20-2023 AST [Catalytic activity/Vol] 12 U/L 13-39 [facility] Bilirubin.total [Mass/volume ] in Serum or PlasmaOrdered By: Marc Mckinney on 01-20-2023 Bilirubin [Mass/Vol] 0.8 mg/dL 0.3-1.0 [facility] Complete Blood Count Auto Di ffon 01-20-2023 Basophils (Bld) [#/Vol] 0.1 10*3/uL Normal 0.0-0.2 [facility] Comment on above: Result Comment: PERF ORMED BY: [place] [address] PATHOLOGIST ALCOHOLISM WORKER ATUL TRACY M.D. Performed By: #### C BC, CMP, PAB #### [place] [address] [place] Basophils/100 WBC (Bld) 0.5 % Normal . [facility] Comment on above: Performed By: #### C BC, CMP, PAB #### [place] [address] [place] Eosinophils (Bld) [#/Vol] 0.2 10*3/uL Normal 0.0-0.45 [facility] Comment on above: Performed By: #### C BC, CMP, PAB #### [place] [address] [place] Eosinophils/100 WBC (Bld) 1.8 % Normal . [facility] Comment on above: Performed By: #### C BC, CMP, PAB #### [place] [address] [place] Erythrocyte distribution width (RBC) [Ratio] 13.6 % Normal 12.0-14.8 [facility] Comment on above: Performed By: #### C BC, CMP, PAB #### [place] [address] [place] Hematocrit (Bld) [Volume fraction] 30.9 % Low 38.8-50.0 [facility] Comment on above: Performed By: #### C BC, CMP, PAB #### [place] [address] [place] Hemoglobin (Bld) [Mass/Vol] 10.4 g/dL Low 13.0-17.0 [facility] Comment on above: Performed By: #### C BC, CMP, PAB #### [place] [address] [place] Lymphocytes (Bld) [#/Vol] 0.8 10*3/uL Low 1.00-4.8 [facility] Comment on above: Performed By: #### C BC CMP, PAB #### [address] Lymphocytes/100 WBC (Bld) 7.0 % Normal . [facility] Comment on above: Performed By: #### C BC CMP, PAB #### [address] MCH (RBC) [Entitic mass] 30.0 pg Normal 27.5-35.2 [facility] Comment on above: Performed By: #### C YAKOV CMP, PAB #### [address] MCV (RBC) [Entitic vol] 89.2 fL Normal 83.5-101 [facility] Comment on above: Performed By: #### C BC CMP, PAB #### [address] Mean Corpuscular HGB Conc 33.7 g/dL Normal 32.5-35.6 [facility] Comment on above: Performed By: #### C YAKOV CMP, PAB #### [address] Monocytes (Bld) [#/Vol] 1.1 10*3/uL High 0.0-0.8 [facility] Comment on above: Performed By: #### C BC, CMP, PAB #### [address] Monocytes/100 WBC (Bld) 9.9 % Normal . [facility] Comment on above: Performed By: #### C BC CMP, PAB #### [address] Neutrophils (Bld) [#/Vol] 8.7 10*3/uL High 1.8-7.7 [facility] Comment on above: Performed By: #### C BC, CMP, PAB #### [place] [id number] [place] Neutrophils/100 WBC (Bld) 80.8 % Normal . [facility] Comment on above: Performed By: #### C BC, CMP, PAB #### [address] NRBC% 0.1 /100{WBC} Normal 0-0.5 [facility] Comment on above: Performed By: #### C BC, CMP, PAB #### [address] Platelet mean volume (Bld) [Entitic vol] 10.5 fL High 6.6-10.1 [facility] Comment on above: Performed By: #### C BC, CMP, PAB #### [address] Platelets (Bld) [#/Vol] 169 10*3/uL Normal 150-450 [facility] Comment on above: Performed By: #### C BC, CMP, PAB #### [address] RBC (Bld) [#/Vol] 3.47 10*6/uL Low 3.90-5.60 [facility] Comment on above: Performed By: #### C BC, CMP, PAB #### [address] WBC (Bld) [#/Vol] 10.8 10*3/uL High 4.1-10.5 [facility] Comment on above: Performed By: #### C BC, CMP, PAB #### [address] Comprehensive Metabolic Pane thuy 01-20-2023 Albumin [Mass/Vol] 3.0 g/dL Low 3.5-5.7 [facility] Comment on above: Performed By: #### C BC, CMP, PAB #### [address] Albumin/Globulin [Mass ratio] 1.0 {ratio} Normal [facility] Comment on above: Performed By: #### C BC, CMP, PAB #### [facility] [address] ALP [Catalytic activity/Vol] 64 U/L Normal 34-104 [facility] Comment on above: Performed By: #### C BC, CMP, PAB #### [facility] [address] ALT [Catalytic activity/Vol] 4 U/L Low 7-52 [facility] Comment on above: Performed By: #### C BC, CMP, PAB #### [facility] [address] Anion gap [Moles/Vol] 11.4 mmol/L Normal 6.0-15.0 [facility] Comment on above: Performed By: #### C BC, CMP, PAB #### [facility] [address] AST [Catalytic activity/Vol] 12 U/L Low 13-39 [facility] Comment on above: Performed By: #### C BC, CMP, PAB #### [facility] [address] Bilirubin [Mass/Vol] 0.8 mg/dL Normal 0.3-1.0 [facility] Comment on above: Performed By: #### C BC, CMP, PAB #### [facility] [address] Calcium [Mass/Vol] 8.5 mg/dL Low 8.6-10.3 [facility] Comment on above: Performed By: #### C BC, CMP, PAB #### [facility] [address] [place] [address] [place] Chloride [Moles/Vol] 103 mmol/L Normal 98-107 [facility] Comment on above: Performed By: #### C BC, CMP, PAB #### [facility] [address] [place] [address] [place] CO2 [Moles/Vol] 24.4 mmol/L Normal 21.0-31.0 [place] Comment on above: Performed By: #### C BC, CMP, PAB #### [facility] [address] Creatinine [Mass/Vol] 0.68 mg/dL Low 0.70-1.30 [facility] Comment on above: Performed By: #### C INES NAGY, PAB #### [facility] [address] [place] [address] [place] Creatinine Clr Calc Pharmacy 121.00 [facility] Comment on above: Performed By: #### C INES NAGY, PAB #### [facility] [address] [place] [address] [place] GFR/1.73 sq M.predicted MDRD (S/P/Bld) [Vol rate/Area] mL/min/{1.73_m2} [facility] Comment on above: Performed By: #### C INES NAGY, PAB #### [facility] [address] Globulin (S) [Mass/Vol] 2.9 g/dL [facility] Comment on above: Performed By: #### C INES NAGY, PAB #### [facility] [address] Glucose [Mass/Vol] 130 mg/dL High 70-100 [facility] Comment on above: Result Comment: [place] Glucose Reference Range is dependent on time and content of last meal. Glucose of more than 200 mg/dL in a nonstressed, ambulatory subject supports the diagnosis of Diabetes Mellitus. ADA recommended reference range Performed By: #### C INES NAGY, PAB #### [facility] [address] [place] [address] [place] Potassium [Moles/Vol] 3.8 mmol/L Normal 3.5-5.1 [facility] Comment on above: Performed By: #### C INES NAGY, PAB #### [facility] [address] Protein [Mass/Vol] 5.9 g/dL Low 6.4-8.9 [facility] Comment on above: Performed By: #### C INES NAGY, PAB #### [facility] [address] [place] [address] Sodium [Moles/Vol] 135 mmol/L Low 136-145 [facility] Comment on above: Performed By: #### C YAKOV, INES, PAB #### [address] Urea nitrogen [Mass/Vol] 16 mg/dL Normal 7-25 [facility] Comment on above: Performed By: #### C BC, CMP, PAB #### [address] Globulin Calc (S) [Mass/Vol] Ordered By: Marc Mckinney on 01-20-2023 Globulin (S) [Mass/Vol] 2.9 g/dL [facility] Prealbuminon 01-20-2023 Prealbumin [Mass/Vol] 8.4 mg/dL Low 17.0-34.0 [facility] Comment on above: Result Comment: PERF ORMED BY: [place] [id number] PATHOLOGIST ALCOHOLISM WORKER ATUL TRACY M.D. Performed By: #### C YAKOV, INES, PAB #### [address] Prealbumin [Mass/volume] in Serum or PlasmaOrdered By: Marc Mckinney on 01-20-2023 Prealbumin [Mass/Vol] 8.4 mg/dL 17.0-34.0 [facility] Protein [Mass/volume] in Ser um or PlasmaOrdered By: Marc Mckinney on 01-20-2023 Protein [Mass/Vol] 5.9 g/dL 6.4-8.9 [facility] Serum or plasma albumin/glob ulin mass ratioOrdered By: Marc Mckinney on 01-20-2023 Albumin/Globulin [Mass ratio] 1.0 {ratio} [facility] B12/Folate Panelon 3 Cobalamin (Vitamin B12) [Mass/Vol] 296 pg/mL Normal 232-1245 [facility] Comment on above: Performed By: #### B 12FOL #### [facility] [address] [place] [address] Airport Manager: Paul Hodge MD Folic Acid 5.2 ng/mL Normal >4.8 [facility] Comment on above: Performed By: #### B 12FOL #### [facility] [address] [place] [address] Airport Manager: Paul Hodge MD Basic Metabolic Profon 01-19 Anion gap [Moles/Vol] 7 mmol/L Low 9-17 [facility] Comment on above: Performed By: #### B MP, CDP #### [facility] [address] [place] [address] Airport Manager: Paul Hodge MD Calcium [Mass/Vol] 8.5 mg/dL Low 8.6-10.4 [facility] Comment on above: Performed By: #### B MP, CDP #### [facility] [address] [place] [address] Airport Manager: Paul Hodge MD Chloride [Moles/Vol] 101 mmol/L Normal 98-107 [facility] Comment on above: Performed By: #### B MP, CDP #### [facility] [address] [place] [address] Airport Manager: Paul Hodge MD CO2 [Moles/Vol] 26 mmol/L Normal 20-31 [facility] Comment on above: Performed By: #### B MP, CDP #### [facility] [address] [place] [address] Airport Manager: Paul Hodge MD Creatinine [Mass/Vol] 0.7 mg/dL Normal 0.7-1.2 [facility] Comment on above: Performed By: #### B MP, CDP #### [facility] [address] [place] [address] Airport Manager: Paul Hodge MD GFR/1.73 sq M.predicted among non-blacks MDRD (S/P/Bld) [Vol rate/Area] mL/min/{1.73_m2} Normal >60 [facility] Comment on above: Result Comment: These results [...] affects renal tubular secretion. Performed By: #### B JUSTINA, CDP #### [facility] [employer] [address] [place] [address] Airport Manager: Paul Hodge MD Glucose [Mass/Vol] 124 mg/dL High 70-99 [facility] Comment on above: Performed By: #### B JUSTINA, CDP #### [facility] [employer] [address] [place] [address] Airport Manager: Paul Hodge MD Potassium [Moles/Vol] 4.4 mmol/L Normal 3.7-5.3 [facility] Comment on above: Performed By: #### B JUSTINA, CDP #### [facility] [employer] [address] [place] [address] Airport Manager: Paul Hodge MD Sodium [Moles/Vol] 134 mmol/L Low 135-144 [facility] Comment on above: Performed By: #### B JUSTINA, CDP #### [facility] [employer] [address] [place] [address] Airport Manager: Paul Hodge MD Urea nitrogen [Mass/Vol] 20 mg/dL Normal 8-23 [facility] Comment on above: Performed By: #### B JUSTINA, CDP #### [facility] [employer] [address] [place] [address] Airport Manager: Paul Hodge MD CBC with Diffon 01-19-2023 Abs. Basophil 0.11 k/uL Normal 0.0-0.2 [facility] Comment on above: Performed By: #### B MP, CDP #### [facility] [address] [place] [address] Airport Manager: Paul Hodge MD Abs.Imm.Granulocyte 0.11 k/uL Normal 0.00-0.30 [facility] Comment on above: Performed By: #### B MP, CDP #### [facility] [address] [place] [address] Airport Manager: Paul Hodge MD Abs.Neutrophil (Seg) 8.34 k/uL High 1.8-7.7 [facility] Comment on above: Performed By: #### B JUSTINA, CDP #### [facility] [address] [place] [address] Airport Manager: Paul Hodge MD Basophils/100 WBC (Bld) 1 % Normal 0-2 [facility] Comment on above: Performed By: #### B JUSTINA, CDP #### [facility] [employer] [address] [place] [address] Airport Manager: Paul Hodge MD Eosinophils (Bld) [#/Vol] 0.43 10*3/uL High 0.0-0.4 [facility] Comment on above: Performed By: #### B JUSTINA, CDP #### [facility] [employer] [address] [place] [address] Airport Manager: Paul Hodge MD Eosinophils/100 WBC (Bld) 4 % Normal 1-4 [facility] Comment on above: Performed By: #### B MP, CDP #### [facility] [address] [place] [address] Airport Manager: Paul Hodge MD Immature granulocytes/100 WBC (Bld) 1 % High 0 [facility] Comment on above: Performed By: #### B MP, CDP #### [employer] [facility] [place] [address] Airport Manager: Paul Hodge MD Lymphocytes (Bld) [#/Vol] 0.64 10*3/uL Low 1.0-4.8 [facility] Comment on above: Performed By: #### B MP, CDP #### [facility] [address] [place] [address] Airport Manager: Paul Hodge MD Lymphocytes/100 WBC (Bld) 6 % Low 24-44 [facility] Comment on above: Performed By: #### B MP, CDP #### [facility] [address] [place] [address] Airport Manager: Paul Hodge MD Monocytes (Bld) [#/Vol] 1.07 10*3/uL High 0.1-0.8 [facility] Comment on above: Performed By: #### B MP, CDP #### [facility] [address] [place] [address] Airport Manager: Paul Hodge MD Monocytes/100 WBC (Bld) 10 % High 1-7 [facility] Comment on above: Performed By: #### B MP, CDP #### [facility] [address] [place] [address] Airport Manager: Paul Hdoge MD Morphology Balta (Bld) [Interp] Normal Normal [facility] Comment on above: Performed By: #### B MP, CDP #### [facility] [address] [place] [address] Airport Manager: Paul Hodge MD Neutrophil (Seg) 78 % High 36-66 [facility] Comment on above: Performed By: #### B MP, CDP #### [facility] [address] [place] [address] Airport Manager: Paul Hodge MD Erythrocyte distribution width (RBC) [Ratio] 13.5 % Normal 11.8-14.4 [facility] Comment on above: Performed By: #### B MP, CDP #### [address] [address] Airport Manager: Paul Hodge MD Hematocrit (Bld) [Volume fraction] 33.1 % Low 40.7-50.3 [facility] Comment on above: Performed By: #### B MP, CDP #### [address] [address] Airport Manager: Paul Hodge MD Hemoglobin (Bld) [Mass/Vol] 10.9 g/dL Low 13.0-17.0 [facility] Comment on above: Performed By: #### B JUSTINA, CDP #### [address] [address] Airport Manager: Paul Hodge MD MCH (RBC) [Entitic mass] 30.4 pg Normal 25.2-33.5 [facility] Comment on above: Performed By: #### B JUSTINA, CDP #### [address] [address] Airport Manager: Paul Hodge MD MCHC (RBC) [Mass/Vol] 32.9 g/dL Normal 28.4-34.8 [facility] Comment on above: Performed By: #### B JUSTINA, CDP #### [address] [address] Airport Manager: Paul Hodge MD MCV (RBC) [Entitic vol] 92.5 fL Normal 82.6-102.9 [facility] Comment on above: Performed By: #### B MP, CDP #### [address] [address] Airport Manager: Paul Hodge MD NRBC Automated 0.0 per 100 WBC Normal 0.0 [facility] Comment on above: Performed By: #### B MP, CDP #### [facility] [address] [place] [address] Airport Manager: Paul Hodge MD Platelet mean volume (Bld) [Entitic vol] 12.1 fL Normal 8.1-13.5 [facility] Comment on above: Performed By: #### B MP, CDP #### [facility] [employer] [address] [place] [address] Airport Manager: Paul Hodge MD Platelets (Bld) [#/Vol] 153 10*3/uL Normal 138-453 [facility] Comment on above: Performed By: #### B MP, CDP #### [facility] [employer] [address] [place] [address] Airport Manager: Paul Hodge MD RBC (Bld) [#/Vol] 3.58 10*6/uL Low 4.21-5.77 [facility] Comment on above: Performed By: #### B MP, CDP #### [facility] [employer] [address] [place] [address] Airport Manager: Paul Hodge MD WBC (Bld) [#/Vol] 10.7 10*3/uL Normal 3.5-11.3 [facility] Comment on above: Performed By: #### B MP, CDP #### [facility] [employer] [address] [place] [address] Airport Manager: Paul Hodge MD Vitamin D 25 OHon 01-19-2023 Vitamin D 25 OH 19.3 ng/mL Low 30.0-100.0 [facility] Comment on above: Result Comment: Reference Range: Vitamin D status Range Deficiency <20 ng/mL Mild Deficiency 20-30 ng/mL Sufficiency 30-100 ng/mL Toxicity >100 ng/mL Performed By: #### I OCAL, MG, PATRICK, CDP, BMP #### [facility] [employer] [address] [place] [address] Airport Manager: Paul Hodge MD XR CHEST PORTABLEon 01-20-20 [...] Matteo Milian MD 01/19/23 Final result Normal [facility] Basic Metabolic Profon 01-18 Anion gap [Moles/Vol] 12 mmol/L Normal 9-17 [facility] Comment on above: Performed By: #### C DP, BMP #### [facility] [employer] [address] [place] [address] Airport Manager: Paul Hodge MD Calcium [Mass/Vol] 8.7 mg/dL Normal 8.6-10.4 [facility] Comment on above: Performed By: #### C DP, BMP #### [facility] [employer] [address] [place] [address] Airport Manager: Paul Hodge MD Chloride [Moles/Vol] 103 mmol/L Normal 98-107 [facility] Comment on above: Performed By: #### C DP, BMP #### [facility] [employer] [address] [place] [address]327 Airport Manager: Paul Hodge MD CO2 [Moles/Vol] 21 mmol/L Normal 20-31 [facility] Comment on above: Performed By: #### C DP, BMP #### [facility] [employer] [address] [place] [address]98 Airport Manager: Paul Hodge MD Creatinine [Mass/Vol] 0.7 mg/dL Normal 0.7-1.2 [facility] Comment on above: Performed By: #### C DP, BMP #### [facility] [employer] [address] [place] [address] Airport Manager: Paul Hodge MD GFR/1.73 sq M.predicted among non-blacks MDRD (S/P/Bld) [Vol rate/Area] mL/min/{1.73_m2} Normal >60 [facility] Comment on above: Result Comment: These results [...] affects renal tubular secretion. Performed By: #### C DP, BMP #### [facility] [address] [place] [address] Airport Manager: Paul Hodge MD Glucose [Mass/Vol] 170 mg/dL High 70-99 [facility] Comment on above: Performed By: #### C DP, BMP #### [facility] [employer] [address] [place] [address] Airport Manager: Paul Hodge MD Potassium [Moles/Vol] 4.8 mmol/L Normal 3.7-5.3 [facility] Comment on above: Performed By: #### C DP, BMP #### [facility] [address] [place] [address] Airport Manager: Paul Hodge MD Sodium [Moles/Vol] 136 mmol/L Normal 135-144 [facility] Comment on above: Performed By: #### C DP, BMP #### [facility] [employer] [address] [place] [address]19 Airport Manager: Paul Hodge MD Urea nitrogen [Mass/Vol] 21 mg/dL Normal 8-23 [facility] Comment on above: Performed By: #### C DP, BMP #### [address] [address] Airport Manager: Paul Hodge MD CBC with Diffon 01-18-2023 Abs. Basophil <0.03 Normal 0.00-0.20 [facility] Comment on above: Performed By: #### C DP, BMP #### [address] [address] Airport Manager: Paul Hodge MD Abs.Imm.Granulocyte 0.09 k/uL Normal 0.00-0.30 [facility] Comment on above: Performed By: #### C DP, BMP #### [place] [address] Airport Manager: Paul Hodge MD Abs.Neutrophil (Seg) 13.01 k/uL High 1.50-8.10 [facility] Comment on above: Performed By: #### C DP, BMP #### [address] [address] Airport Manager: Paul Hodge MD Basophils/100 WBC (Bld) 0 % Normal 0-2 [facility] Comment on above: Performed By: #### C DP, BMP #### [address] [address] Airport Manager: Paul Hodge MD Eosinophils (Bld) [#/Vol] 0.03 10*3/uL Normal 0.00-0.44 [facility] Comment on above: Performed By: #### C DP, BMP #### [address] [address] Airport Manager: Paul Hodge MD Eosinophils/100 WBC (Bld) 0 % Low 1-4 [facility] Comment on above: Performed By: #### C DP, BMP #### [facility] [employer] [address] [place] [address] Airport Manager: Paul Hodge MD Erythrocyte distribution width (RBC) [Ratio] 13.7 % Normal 11.8-14.4 [facility] Comment on above: Performed By: #### C DP, BMP #### [facility] [employer] [address] [place] [address] Airport Manager: Paul Hodge MD Hematocrit (Bld) [Volume fraction] 37.3 % Low 40.7-50.3 [facility] Comment on above: Performed By: #### C DP, BMP #### [facility] [employer] [address] [place] [address] Airport Manager: Paul Hodge MD Hemoglobin (Bld) [Mass/Vol] 11.9 g/dL Low 13.0-17.0 [facility] Comment on above: Performed By: #### C DP, BMP #### [address] [address] Airport Manager: Paul Hodge MD Immature granulocytes/100 WBC (Bld) 1 % High 0 [facility] Comment on above: Performed By: #### C DP, BMP #### [address] [address] Airport Manager: Paul Hodge MD Lymphocytes (Bld) [#/Vol] 0.76 10*3/uL Low 1.10-3.70 [facility] Comment on above: Performed By: #### C DP, BMP #### [facility] [employer] [address] [place] [address] Airport Manager: Paul Hodge MD Lymphocytes/100 WBC (Bld) 5 % Low 24-43 [facility] Comment on above: Performed By: #### C DP, BMP #### [facility] [employer] [address] [place] [address] Airport Manager: Paul Hodge MD MCH (RBC) [Entitic mass] 29.7 pg Normal 25.2-33.5 [facility] Comment on above: Performed By: #### C DP, BMP #### [address] [address] Airport Manager: Paul Hodge MD MCHC (RBC) [Mass/Vol] 31.9 g/dL Normal 28.4-34.8 [facility] Comment on above: Performed By: #### C DP, BMP #### [address] [address] Airport Manager: Paul Hodge MD MCV (RBC) [Entitic vol] 93.0 fL Normal 82.6-102.9 [facility] Comment on above: Performed By: #### C DP, BMP #### [address] [address] Airport Manager: Paul Hodge MD Monocytes (Bld) [#/Vol] 1.30 10*3/uL High 0.10-1.20 [facility] Comment on above: Performed By: #### C DP, BMP #### [address] [address] Airport Manager: Paul Hodge MD Monocytes/100 WBC (Bld) 9 % Normal 3-12 [facility] Comment on above: Performed By: #### C DP, BMP #### [address] [address] Airport Manager: Paul Hodge MD Neutrophil (Seg) 85 % High 36-65 [facility] Comment on above: Performed By: #### C DP, BMP #### [address] [address] Airport Manager: Paul Hodge MD NRBC Automated 0.0 per 100 WBC Normal 0.0 [facility] Comment on above: Performed By: #### C DP, BMP #### [address] [address] Airport Manager: Paul Hodge MD Platelet mean volume (Bld) [Entitic vol] 12.1 fL Normal 8.1-13.5 [facility] Comment on above: Performed By: #### C DP, BMP #### [address] [address] Airport Manager: Paul Hodge MD Platelets (Bld) [#/Vol] 186 10*3/uL Normal 138-453 [facility] Comment on above: Performed By: #### C DP, BMP #### [address] [address] Airport Manager: Paul Hodge MD RBC (Bld) [#/Vol] 4.01 10*6/uL Low 4.21-5.77 [facility] Comment on above: Performed By: #### C DP, BMP #### [address] [address] Airport Manager: Paul Hodge MD WBC (Bld) [#/Vol] 15.2 10*3/uL High 3.5-11.3 [facility] Comment on above: Performed By: #### C DP, BMP #### [address] [address] Airport Manager: Paul Hodge MD Basic Metabolic Profon 01-17 Anion gap [Moles/Vol] 12 mmol/L Normal 9-17 [facility] Comment on above: Performed By: #### I OCAL, MG, PATRICK, CDP, BMP #### [address] [address] Airport Manager: Paul Hodge MD Calcium [Mass/Vol] 8.8 mg/dL Normal 8.6-10.4 [facility] Comment on above: Performed By: #### I OCAL, MG, PATRICK, CDP, BMP #### [facility] [employer] [address] [place] [address] Airport Manager: Paul Hodge MD Chloride [Moles/Vol] 103 mmol/L Normal 98-107 [facility] Comment on above: Performed By: #### I OCAL, MG, PATRICK, CDP, BMP #### [facility] [employer] [address] [place] [address] Airport Manager: Paul Hodge MD CO2 [Moles/Vol] 21 mmol/L Normal 20-31 [facility] Comment on above: Performed By: #### I OCAL, MG, PATRICK, CDP, BMP #### [facility] [employer] [address] [place] [address] [phone] Airport Manager: Paul Hodge MD Creatinine [Mass/Vol] 0.7 mg/dL Normal 0.7-1.2 [facility] Comment on above: Performed By: #### I OCAL, MG, PATRICK, CDP, BMP #### [facility] [employer] [address] [place] [address] Airport Manager: Paul Hodge MD GFR/1.73 sq M.predicted among non-blacks MDRD (S/P/Bld) [Vol rate/Area] mL/min/{1.73_m2} Normal >60 [facility] Comment on above: Result Comment: These results [...] affects renal tubular secretion. Performed By: #### I OCAL, MG, PATRICK, CDP, BMP #### [facility] [employer] [address] [place] [address] Airport Manager: Paul Hodge MD Glucose [Mass/Vol] 158 mg/dL High 70-99 [facility] Comment on above: Performed By: #### I OCAL, MG, PATRICK, CDP, BMP #### [facility] [address] [place] [address] Airport Manager: Paul Hodge MD Potassium [Moles/Vol] 4.2 mmol/L Normal 3.7-5.3 [facility] Comment on above: Performed By: #### I OCAL, MG, PATRICK, CDP, BMP #### [facility] [address] [place] [address] Airport Manager: Paul Hodge MD Sodium [Moles/Vol] 136 mmol/L Normal 135-144 [facility] Comment on above: Performed By: #### I OCAL, MG, PATRICK, CDP, BMP #### [facility] [address] [place] [address] Airport Manager: Paul Hodge MD Urea nitrogen [Mass/Vol] 18 mg/dL Normal 8-23 [facility] Comment on above: Performed By: #### I OCAL, MG, PATRICK, CDP, BMP #### [facility] [address] [place] [address] Airport Manager: Paul Hodge MD Anion gap [Moles/Vol] 11 mmol/L Normal 9-17 [facility] Comment on above: Performed By: #### I OCAL, MG, PATRICK, CDP, BMP #### [employer] [address] [place] [address] Airport Manager: Paul Hodge MD Calcium [Mass/Vol] 8.9 mg/dL Normal 8.6-10.4 [facility] Comment on above: Performed By: #### I OCAL, MG, PATRICK, CDP, BMP #### [facility] [address] [place] [address] [phone] Airport Manager: Paul Hodge MD Chloride [Moles/Vol] 107 mmol/L Normal 98-107 [facility] Comment on above: Performed By: #### I OCAL, MG, PATRICK, CDP, BMP #### [facility] [employer] [facility] [place], [place] [phone] Airport Manager: Paul Hodge MD CO2 [Moles/Vol] 20 mmol/L Normal 20-31 [facility] Comment on above: Performed By: #### I OCAL, MG, PATRICK, CDP, BMP #### [facility] [employer] [address] [place] [address] [phone] Airport Manager: Paul Hodge MD Creatinine [Mass/Vol] 0.7 mg/dL Normal 0.7-1.2 [facility] Comment on above: Performed By: #### I OCAL, MG, PATRICK, CDP, BMP #### [address] [address] Airport Manager: Paul Hodge MD GFR/1.73 sq M.predicted among non-blacks MDRD (S/P/Bld) [Vol rate/Area] mL/min/{1.73_m2} Normal >60 [facility] Comment on above: Result Comment: These results [...] affects renal tubular secretion. Performed By: #### I OCAL, MG, PATRICK, CDP, BMP #### [facility] [employer] [address] [place] [address] [phone] Airport Manager: Paul Hodge MD Glucose [Mass/Vol] 119 mg/dL High 70-99 [facility] Comment on above: Performed By: #### I OCAL, MG, PATRICK, CDP, BMP #### [facility] [address] [place] [address] Airport Manager: Paul Hodge MD Potassium [Moles/Vol] 4.4 mmol/L Normal 3.7-5.3 [facility] Comment on above: Performed By: #### I OCAL, MG, PATRICK, CDP, BMP #### [facility] [address] [place] [address] Airport Manager: Paul Hodge MD Sodium [Moles/Vol] 138 mmol/L Normal 135-144 [facility] Comment on above: Performed By: #### I OCAL, MG, PATRICK, CDP, BMP #### [facility] [address] [place] [address] Airport Manager: Paul Hodge MD Urea nitrogen [Mass/Vol] 23 mg/dL Normal 8-23 [facility] Comment on above: Performed By: #### I OCAL, MG, PATRICK, CDP, BMP #### [facility] [address] [place] [address] Airport Manager: Paul Hodge MD CBCon 01-17-2023 Erythrocyte distribution width (RBC) [Ratio] 13.7 % Normal 11.8-14.4 [facility] Comment on above: Performed By: #### I OCAL, MG, APTRICK, CDP, BMP #### [facility] [address] [place] [address] Airport Manager: Paul Hodge MD Hematocrit (Bld) [Volume fraction] 40.1 % Low 40.7-50.3 [facility] Comment on above: Performed By: #### I OCAL, MG, PATRICK, CDP, BMP #### [facility] [facility] [address] [place] [address] Airport Manager: Paul Hodge MD Hemoglobin (Bld) [Mass/Vol] 12.8 g/dL Low 13.0-17.0 [facility] Comment on above: Performed By: #### I OCAL, MG, PATRICK, CDP, BMP #### [address] [address] Airport Manager: Paul Hodge MD MCH (RBC) [Entitic mass] 29.9 pg Normal 25.2-33.5 [facility] Comment on above: Performed By: #### I OCAL, MG, PATRICK, CDP, BMP #### [address] [address] Airport Manager: Paul Hodge MD MCHC (RBC) [Mass/Vol] 31.9 g/dL Normal 28.4-34.8 [facility] Comment on above: Performed By: #### I OCAL, MG, PATRICK, CDP, BMP #### [address] [address] Airport Manager: Paul Hodge MD MCV (RBC) [Entitic vol] 93.7 fL Normal 82.6-102.9 [facility] Comment on above: Performed By: #### I OCAL, MG, PATRICK, CDP, BMP #### [address] [address] Airport Manager: Paul Hodge MD NRBC Automated 0.0 per 100 WBC Normal 0.0 [facility] Comment on above: Performed By: #### I OCAL, MG, PATRICK, CDP, BMP #### [address] [address] Airport Manager: Paul Hodge MD Platelet mean volume (Bld) [Entitic vol] 11.4 fL Normal 8.1-13.5 [facility] Comment on above: Performed By: #### I OCAL, MG, PATRICK, CDP, BMP #### [address] [address] Airport Manager: Paul Hogde MD Platelets (Bld) [#/Vol] 175 10*3/uL Normal 138-453 [facility] Comment on above: Performed By: #### I OCAL, MG, PATRICK, CDP, BMP #### [facility] [employer] [address] [place] [address] Airport Manager: Paul Hodge MD RBC (Bld) [#/Vol] 4.28 10*6/uL Normal 4.21-5.77 [facility] Comment on above: Performed By: #### I OCAL, MG, PATRICK, CDP, BMP #### [facility] [address] [place] [address] Airport Manager: Paul Hodge MD WBC (Bld) [#/Vol] 15.7 10*3/uL High 3.5-11.3 [facility] Comment on above: Performed By: #### I OCAL, MG, PATRICK, CDP, BMP #### [facility] [employer] [address] [place] [address] Airport Manager: Paul Hodge MD CBC with Diffon 01-17-2023 Abs. Basophil 0.04 k/uL Normal 0.00-0.20 [facility] Comment on above: Performed By: #### I OCAL, MG, PATRICK, CDP, BMP #### [facility] [employer] [address] [place] [address] Airport Manager: Paul Hodge MD Abs.Imm.Granulocyte 0.07 k/uL Normal 0.00-0.30 [facility] Comment on above: Performed By: #### I OCAL, MG, PATRICK, CDP, BMP #### [facility] [employer] [address] [place] [address] Airport Manager: Paul Hodge MD Abs.Neutrophil (Seg) 6.68 k/uL Normal 1.50-8.10 [facility] Comment on above: Performed By: #### I OCAL, MG, PATRICK, CDP, BMP #### [address] [address] Airport Manager: Paul Hodge MD Basophils/100 WBC (Bld) 0 % Normal 0-2 [facility] Comment on above: Performed By: #### I OCAL, MG, PATRICK, CDP, BMP #### [address] [address] Airport Manager: Paul Hodge MD Eosinophils (Bld) [#/Vol] 0.30 10*3/uL Normal 0.00-0.44 [facility] Comment on above: Performed By: #### I OCAL, MG, PATRICK, CDP, BMP #### [facility] [employer] [address] [place] [address] Airport Manager: Paul Hodge MD Eosinophils/100 WBC (Bld) 3 % Normal 1-4 [facility] Comment on above: Performed By: #### I OCAL, MG, PATRICK, CDP, BMP #### [facility] [employer] [address] [place] [address] Airport Manager: Paul Hodge MD Erythrocyte distribution width (RBC) [Ratio] 14.0 % Normal 11.8-14.4 [facility] Comment on above: Performed By: #### I OCAL, MG, PATRICK, CDP, BMP #### [facility] [employer] [address] [place] [address] Airport Manager: Paul Hodge MD Hematocrit (Bld) [Volume fraction] 38.5 % Low 40.7-50.3 [facility] Comment on above: Performed By: #### I OCAL, MG, PATRICK, CDP, BMP #### [facility] [employer] [address] [place] [address] Airport Manager: Paul Hodge MD Hemoglobin (Bld) [Mass/Vol] 12.1 g/dL Low 13.0-17.0 [facility] Comment on above: Performed By: #### I OCAL, MG, PATRICK, CDP, BMP #### [address] [address] Airport Manager: Paul Hodge MD Immature granulocytes/100 WBC (Bld) 1 % High 0 [facility] Comment on above: Performed By: #### I OCAL, MG, PATRICK, CDP, BMP #### [address] [address] Airport Manager: Paul Hodge MD Lymphocytes (Bld) [#/Vol] 1.08 10*3/uL Low 1.10-3.70 [facility] Comment on above: Performed By: #### I OCAL, MG, PATRICK, CDP, BMP #### [address] [address] Airport Manager: Paul Hodge MD Lymphocytes/100 WBC (Bld) 11 % Low 24-43 [facility] Comment on above: Performed By: #### I OCAL, MG, PATRICK, CDP, BMP #### [address] [address] Airport Manager: Paul Hodge MD MCH (RBC) [Entitic mass] 29.8 pg Normal 25.2-33.5 [facility] Comment on above: Performed By: #### I OCAL, MG, PATRICK, CDP, BMP #### [address] [address] Airport Manager: Paul Hodge MD MCHC (RBC) [Mass/Vol] 31.4 g/dL Normal 28.4-34.8 [facility] Comment on above: Performed By: #### I OCAL, MG, PATRICK, CDP, BMP #### [address] [address] Airport Manager: Paul Hodge MD MCV (RBC) [Entitic vol] 94.8 fL Normal 82.6-102.9 [facility] Comment on above: Performed By: #### I OCAL, MG, PATRICK, CDP, BMP #### [facility] [employer] [address] [place] [address] Airport Manager: Paul Hodge MD Monocytes (Bld) [#/Vol] 1.38 10*3/uL High 0.10-1.20 [facility] Comment on above: Performed By: #### I OCAL, MG, PATRICK, CDP, BMP #### [facility] [employer] [address] [place] [address] Airport Manager: Paul Hodge MD Monocytes/100 WBC (Bld) 15 % High 3-12 [facility] Comment on above: Performed By: #### I OCAL, MG, PATRICK, CDP, BMP #### [facility] [employer] [address] [place] [address] Airport Manager: Paul Hodge MD Neutrophil (Seg) 70 % High 36-65 [facility] Comment on above: Performed By: #### I OCAL, MG, PATRICK, CDP, BMP #### [facility] [employer] [address] [place] [address] Airport Manager: Paul Hodge MD NRBC Automated 0.0 per 100 WBC Normal 0.0 [facility] Comment on above: Performed By: #### I OCAL, MG, PATRICK, CDP, BMP #### [facility] [employer] [address] [place] [address] Airport Manager: Paul Hodge MD Platelet mean volume (Bld) [Entitic vol] 12.0 fL Normal 8.1-13.5 [facility] Comment on above: Performed By: #### I OCAL, MG, PATRICK, CDP, BMP #### [facility] [employer] [address] [place] [address] Airport Manager: Paul Hodge MD Platelets (Bld) [#/Vol] 187 10*3/uL Normal 138-453 [facility] Comment on above: Performed By: #### I OCAL, MG, PATRICK, CDP, BMP #### [facility] [address] [place] [address] [phone] Airport Manager: Paul Hodge MD RBC (Bld) [#/Vol] 4.06 10*6/uL Low 4.21-5.77 [facility] Comment on above: Performed By: #### I OCAL, MG, PATRICK, CDP, BMP #### [facility] [address] [place] [address] [phone] Airport Manager: Paul Hodge MD WBC (Bld) [#/Vol] 9.6 10*3/uL Normal 3.5-11.3 [facility] Comment on above: Performed By: #### I OCAL, MG, PATRICK, CDP, BMP #### [facility] [employer] [address] [place] [address] [phone] Airport Manager: Paul Hodge MD Calcium, Ionicon 01-17-2023 Calcium [Moles/Vol] 1.11 mmol/L Low 1.13-1.33 [facility] Comment on above: Performed By: #### I OCAL, MG, PATRICK, CDP, BMP #### [facility] [address] [place] [address] [phone] Airport Manager: Paul Hodge MD FLUORO FOR SURGICAL PROCEDUR ESon 01-17-2023 FLUORO FOR SURGICAL PROCEDURES Radiology exam is complete. No Radiologist dictation. Please follow up with ordering provider. Final result Normal [facility] Magnesiumon 01-17-2023 Magnesium [Mass/Vol] 2.3 mg/dL Normal 1.6-2.6 [facility] Comment on above: Performed By: #### I OCAL, MG, PATRICK, CDP, BMP #### [facility] [address] [place] [address] [phone] Airport Manager: Paul Hodge MD Phosphorus, Inorg.on 023 Phosphorus, Inorg. 4.2 mg/dL Normal 2.5-4.5 [facility] Comment on above: Performed By: #### I OCAL, MG, PATRICK, CDP, BMP #### [facility] [address] [place] [address] Airport Manager: Paul Hodge MD XR FEMUR RIGHT (MIN [...] Matteo Milian MD 01/17/23 Final result Normal [facility] ABO/Rhon 01-16-2023 ABO/Rh Positive Invalid Interpretation Code [facility] Comment on above: Performed By: #### 2 [id number] #### [facility] [address] [place] [address] ABO/Rh History Checkon 01-16 ABO/Rh History Check Verified Hx Blood Type Normal [facility] Comment on above: Performed By: #### 2 [id number] #### [facility] [address] [place] [address] ABSCon 01-16-2023 ABSC Gel Interp Negative Normal [facility] Comment on above: Performed By: #### 2 959777 #### [facility] [address] [place] [address] APTTon 01-16-2023 aPTT Coag (Bld) [Time] 27.7 s Normal 23.0-36.5 [facility] Comment on above: Result Comment: IV Heparin Therapy Range: 66.0-92.0 sec Performed By: #### I OCAL, MG, PATRICK, CDP, BMP #### [facility] [address] [place], [place] [phone] Airport Manager: Paul Hodge MD Albuminon 01-16-2023 Albumin [Mass/Vol] 3.7 g/dL Normal 3.5-5.2 [facility] Comment on above: Performed By: #### I OCAL, MG, PATRICK, CDP, BMP #### [facility] [address] [place], [place] [phone] Airport Manager: Palu Hodge MD Auto Diffon 01-16-2023 Basophils/100 WBC (Bld) 0.7 % Normal 0.0-2.0 [facility] Comment on above: Order Comment: Order Added by Discern Expert. Performed By: #### 1 9209859, 3082879, 1425074, 0302333, 1330835, 6430604, 9119138, 50404303, 2767624 ####[facility] [address] [place] [address] Basophils/Leukocytes Auto (Bld) [Pure # fraction] 0.1 E9/L Normal 0.0-0.2 [facility] Comment on above: Order Comment: Order Added by Discern Expert. Performed By: #### 1 0607022, 0081189, 2587102, 2436860, 1443756, 7870575, 6041770, 35743073, 1320625 ####[facility] [address] [place] [address] Eosinophils/100 WBC (Bld) 5.9 % Normal 0.0-8.0 [facility] Comment on above: Order Comment: Order Added by Discern Expert. Performed By: #### 1 7164611, 7185002, 1823147, 9818439, 7052551, 5523481, 9599510, 84408004, 2156587 ####[facility] [address] [place] [address] Eosinophils/Leukocytes Auto (Bld) [Pure # fraction] 0.6 E9/L High 0.0-0.5 [facility] Comment on above: Order Comment: Order Added by Discern Expert. Performed By: #### 1 3015287, 7718228, 8941467, 7497745, 6266501, 3953562, 7521313, 19467856, 8155991 ####[facility] [address] [place] [address] Lymphocytes/100 WBC (Bld) 13.7 % Low 14.0-50.0 [facility] Comment on above: Order Comment: Order Added by Discern Expert. Performed By: #### 1 1403617, 8274028, 4635895, 9279023, 9598621, 5946756, 7700293, 66571585, 1855771 ####[address] [address] Lymphocytes/Leukocytes Auto (Bld) [Pure # fraction] 1.3 E9/L Normal 1.0-4.0 [facility] Comment on above: Order Comment: Order Added by Discern Expert. Performed By: #### 1 3155113, 2799030, 0907483, 1097017, 9276075, 6655259, 8514268, 08876357, 9791871 ####[place] [place] [address] Monocytes/100 WBC (Bld) 10.7 % Normal 4.0-14.0 [facility] Comment on above: Order Comment: Order Added by Discern Expert. Performed By: #### 1 2594546, 9894597, 6143667, 6615629, 5099368, 2721559, 3079168, 71119354, 7694837 ####[address] [address] Monocytes/Leukocytes Auto (Bld) [Pure # fraction] 1.0 E9/L Normal 0.2-1.0 [facility] Comment on above: Order Comment: Order Added by Anjel Expert. Performed By: #### 1 2701450, 7551328, 3568456, 3800372, 5652803, 7482888, 1734499, 43756418, 4103278 ####[facility] [address] [place] [address] Neutrophils/100 WBC (Bld) 69.0 % Normal 36.0-75.0 [facility] Comment on above: Order Comment: Order Added by Discern Expert. Performed By: #### 1 7406700, 5957738, 8962600, 2806237, 6342901, 4225660, 5604579, 55756615, 0890922 ####[facility] [address] [place] [address] Neutrophils/Leukocytes Auto (Bld) [Pure # fraction] 6.5 E9/L Normal 2.0-7.5 [facility] Comment on above: Order Comment: Order Added by Discern Expert. Performed By: #### 1 2194809, 2574299, 6635281, 2365789, 9382422, 3998982, 0333071, 17502089, 2331456 ####[facility] [address] [place] [address] BMPon 01-16-2023 Creatinine [Mass/Vol] 0.8 mg/dL Normal 0.5-1.3 [facility] Comment on above: Performed By: #### 1 6131209, 3158968, 9884995, 9887711, 8862814, 8390484, 6122100, 49917159, 3203308 ####[facility] [address] [place] [address] Urea nitrogen [Mass/Vol] 20 mg/dL Normal 5-21 [facility] Comment on above: Performed By: #### 1 8828346, 4173845, 7232399, 3020653, 2785131, 3154081, 2999382, 53547914, 8393280 ####[facility] [address] [place] [address] Urea nitrogen/Creatinine [Mass ratio] 25 No Units High 10-20 [facility] Comment on above: Performed By: #### 1 0114029, 7232056, 4185313, 8437509, 3122788, 8177330, 2723500, 08639770, 1336670 ####[facility] [address] [place] [address] Anion gap [Moles/Vol] 13 mmol/L Normal 6-16 [facility] Comment on above: Performed By: #### 1 0215407, 7705688, 6631638, 5785986, 7919687, 6094483, 5128173, 92229376, 3953465 ####[facility] [address] [place] [address] Calcium [Mass/Vol] 9.0 mg/dL Normal 8.9-11.1 [facility] Comment on above: Performed By: #### 1 8176233, 0622832, 6500915, 1838576, 1215236, 8171794, 0952092, 91591262, 7784524 ####[facility] [address] [place] [address] Chloride [Moles/Vol] 104 mmol/L Normal 101-111 [facility] Comment on above: Performed By: #### 1 6712060, 9754640, 4954310, 9328629, 2807717, 0213765, 5387237, 11731865, 6445282 ####[facility] [address] [place] [address] CO2 [Moles/Vol] 23 mmol/L Normal 21-31 [facility] Comment on above: Performed By: #### 1 6873599, 3287231, 8532913, 9470730, 1822364, 5949630, 6123546, 89942354, 4329319 ####[facility] [address] [place] [address] Glucose [Mass/Vol] 138 mg/dL Normal 55-199 [facility] Comment on above: Result Comment: If t his glucose result represents a fasting glucose, interpretation should refer to the following reference range: 55-99 mg/dL Performed By: #### 1 2588689, 4251923, 6433520, 5165828, 1411090, 2239528, 3756848, 87816144, 2775067 ####[facility] [address] [place] [address] Potassium [Moles/Vol] 4.1 mmol/L Normal 3.5-5.3 [facility] Comment on above: Performed By: #### 1 5373035, 7230323, 0161451, 8427612, 6970513, 2886637, 3186435, 40097929, 2913650 ####[facility] [address] [place] [address] Sodium [Moles/Vol] 136 mmol/L Normal 135-145 [facility] Comment on above: Performed By: #### 1 9990001, 9878865, 2759248, 3473693, 4237597, 0251191, 8379010, 82040644, 0072436 ####[facility] [address] [place] [address] BUN (Urea N)on 01-16-2023 Urea nitrogen [Mass/Vol] 16 mg/dL Normal 8-23 [facility] Comment on above: Performed By: #### I OCAL, MG, PATRICK, CDP, BMP #### [address] [address] Airport Manager: Paul Hodge MD Blood Bank ID#on 01-16-2023 BBID# [id number] Invalid Interpretation Code [facility] Comment on above: Performed By: #### 2 264599 #### [facility] [address] [place] [address] CBCon 01-16-2023 Erythrocyte distribution width (RBC) [Ratio] 13.8 % Normal 11.8-14.4 [facility] Comment on above: Performed By: #### I OCAL, MG, PATRICK, CDP, BMP #### [address] [address] Airport Manager: Paul Hodge MD Hematocrit (Bld) [Volume fraction] 44.6 % Normal 40.7-50.3 [facility] Comment on above: Performed By: #### I OCAL, MG, PATRICK, CDP, BMP #### [address] [address] Airport Manager: Paul Hodge MD Hemoglobin (Bld) [Mass/Vol] 14.5 g/dL Normal 13.0-17.0 [facility] Comment on above: Performed By: #### I OCAL, MG, PATRICK, CDP, BMP #### [address] [address] Airport Manager: Paul Hodge MD MCH (RBC) [Entitic mass] 29.9 pg Normal 25.2-33.5 [facility] Comment on above: Performed By: #### I OCAL, MG, PATRICK, CDP, BMP #### [address] [address] Airport Manager: Paul Hodge MD MCHC (RBC) [Mass/Vol] 32.5 g/dL Normal 28.4-34.8 [facility] Comment on above: Performed By: #### I OCAL, MG, PATRICK, CDP, BMP #### [address] [address] Airport Manager: Paul Hodge MD MCV (RBC) [Entitic vol] 92.0 fL Normal 82.6-102.9 [facility] Comment on above: Performed By: #### I OCAL, MG, PATRICK, CDP, BMP #### [address] [address] Airport Manager: Paul Hodge MD NRBC Automated 0.0 per 100 WBC Normal 0.0 [facility] Comment on above: Performed By: #### I OCAL, MG, PATRICK, CDP, BMP #### [address] [address] Airport Manager: Paul Hodge MD Platelet mean volume (Bld) [Entitic vol] 12.6 fL Normal 8.1-13.5 [facility] Comment on above: Performed By: #### I OCAL, MG, PATRICK, CDP, BMP #### [employer] [address] [place] [address] Airport Manager: Paul Hodge MD Platelets (Bld) [#/Vol] 206 10*3/uL Normal 138-453 [facility] Comment on above: Performed By: #### I OCAL, MG, APTRICK, CDP, BMP #### [facility] [employer] [address] [place] [address] [id number] Airport Manager: Paul Hodge MD RBC (Bld) [#/Vol] 4.85 10*6/uL Normal 4.21-5.77 [facility] Comment on above: Performed By: #### I OCAL, MG, PATRICK, CDP, BMP #### [facility] [employer] [address] [place] [address] Airport Manager: Paul Hodge MD WBC (Bld) [#/Vol] 16.3 10*3/uL High 3.5-11.3 [facility] Comment on above: Performed By: #### I OCAL, MG, PATRICK, CDP, BMP #### [facility] [employer] [address] [place] [address] [phone] Airport Manager: Paul Hodge MD CBC w/ Auto Diffon 3 Erythrocyte distribution width (RBC) [Ratio] 14.3 % High 10.9-14.2 [facility] Comment on above: Performed By: #### 1 9176372, 7411487, 3612395, 5653572, 2964755, 1612476, 0441639, 53051965, 7287118 ####[facility] [address] [place] [address] Hematocrit (Bld) [Volume fraction] 42.4 % Normal 37.7-49.0 [facility] Comment on above: Performed By: #### 1 9356293, 3732738, 5586687, 8957534, 4550480, 9125606, 9774624, 62510460, 7989537 ####[address] [place] [address] Hemoglobin (Bld) [Mass/Vol] 13.9 g/dL Normal 13.5-17.5 [facility] Comment on above: Performed By: #### 1 7061291, 6369817, 3635027, 8252170, 1144547, 1880756, 9805678, 19109746, 8201024 ####[address] [place] [id number] MCH (RBC) [Entitic mass] 29.6 pg Normal 27.0-34.0 [facility] Comment on above: Performed By: #### 1 3198953, 4555569, 8604255, 0879192, 8369475, 1222146, 2944414, 70803414, 6024073 ####[address] [address] MCHC (RBC) [Mass/Vol] 32.8 g/dL Normal 31.4-36.0 [facility] Comment on above: Performed By: #### 1 7751590, 5369071, 2995728, 4866611, 9945180, 0988206, 9252458, 88941492, 2791490 ####[place] [address] MCV (RBC) [Entitic vol] 90.3 fL Normal 80.0-100.0 [facility] Comment on above: Performed By: #### 1 6645666, 7393178, 7295076, 4120291, 3999713, 1684744, 6837778, 76540500, 7051633 ####[address] [place] [address] Platelet mean volume (Bld) [Entitic vol] 10.1 fL Normal 6.4-10.8 [facility] Comment on above: Performed By: #### 1 5983324, 8284813, 8822674, 6753524, 8658604, 2324679, 8422221, 25667501, 5455445 ####[facility] [address] [place] [address] Platelets (Bld) [#/Vol] 197.0 E9/L Normal 150.0-500.0 [facility] Comment on above: Performed By: #### 1 8646490, 0534949, 9227588, 0621375, 9743039, 1799620, 8694036, 10947079, 7155604 ####[facility] [address] [place] [address] RBC (Bld) [#/Vol] 4.7 E12/L Normal 4.3-5.9 [facility] Comment on above: Performed By: #### 1 4803323, 2357118, 3067951, 1588744, 0715794, 0687704, 8137885, 41281961, 9349592 ####[facility] [address] [place] [address] WBC corrected for nucl RBC Auto (Bld) [#/Vol] 9.4 E9/L Normal 4.0-11.0 [facility] Comment on above: Performed By: #### 1 8481187, 8569982, 5947824, 8283084, 0163046, 6391770, 7024949, 37251820, 0592468 ####[address] [place] [address] CT CHEST ABDOMEN PELVIS W CO NTRASTon [...] Obinna Luis MD 01/16/23 Final result Normal [facility] CT Head or Brain w/o Contras ton [...] V. Transcribed by: OVI Technologist: Cecy [facility] CT LUMBAR SPINE BONY RECONST RUCTIONon [...] Obinna Luis MD 01/16/23 Final result Normal [facility] CT Spine Cervical w/o Li heck 01-16-2023 [...] V. Transcribed by: OVI Technologist: Cecy [facility] CT THORACIC SPINE BONY RECON STRUCTIONon [...] Nick Hinojosa MD 01/16/23 Final result Normal [facility] Consent for Treatmenton 01-07 Consent for Treatment [id number] Normal [facility] Creatinine w/GFRon 3 Creatinine [Mass/Vol] 0.6 mg/dL Low 0.7-1.2 [facility] Comment on above: Performed By: #### I OCAL, MG, PATRICK, CDP, BMP #### [employer] [address] [place] [address] Airport Manager: Paul Hodge MD GFR/1.73 sq M.predicted among non-blacks MDRD (S/P/Bld) [Vol rate/Area] mL/min/{1.73_m2} Normal >60 [facility] Comment on above: Result Comment: These results [...] affects renal tubular secretion. Performed By: #### I OCAL, MG, PATRICK, CDP, BMP #### [facility] [address] [place] [address] Airport Manager: Paul Hodge MD ED Clinical Summaryon 2022 ED Clinical Summary (Inserted Image. Benita ble to display) [place] [id number] ED Clinical Summary Person Information Name: PARK GUIDRY [place] Age: 82 Years : 1940 Sex: Male Language: Vincentian PCP: ALPESH DUNN DO Marital Status: Visit [...] 12:12:03 01/16/2023 12:12:03 01/16/2023 12:12:03 ADDRESS: [id number] [place] [id number] PHYS DOC NOTES: MEDICAL INFORMATION: Prescriptions Given: [...] 1:Fall; 2:Femur fracture; 3:Nasal bone fracture Normal [facility] ED Note-Physicianon 01-17-20 ED Note-Physician Basic Information Time Seen: Juan Carlos Vines DO 01/16/2023 09:24 Chief Complaint patient arrived via private vehicle after tripping over curb and falling at [employer]. presents with right femur deformity. patient denies [...] and family. They have requested transfer to [place] as that is where his family is. Laboratory studies reviewed and noted. CT head and neck are significant for nondisplaced nasal bone fracture. His leg was stabilized with a long-leg posterior splint. He remains neurovascular intact and pain is improved after dose of fentanyl. Laboratory studies reviewed and noted. Case is discussed with [facility] attending, Dr. Rudolph, who has accepted patient for transfer. [facility] Trauma surgery is aware of the patient [...] Oxygen Thera (more content not included)... Normal [facility] Comment on above: Result Comment: Elec tronically Signed By: Chaz Leung PA-C\.br\Date and Time Signed: 01/16/23 12:07 EST\.br\Electronically Co-Signed By: Juan Carlos Vines DO\.br\Date and Time Co-Signed: 01/16/23 12:59 EST ED Patient Education Noteon 01-16-2023 ED Patient Education Note Normal [facility] ED Patient Summaryon 023 ED Patient Summary (Inserted Image. Benita ble to display) [place] [id number] Patient Discharge Instructions Person Information Name: PARK GUIDRY Age: 82 Years Arrival Date: 01/16/2023 09:21:19 Discharge Diagnosis: 1:Fall; 2:Femur fracture; 3:Nasal bone fracture Primary Care Physician: ALPESH DUNN DO Provider Information Primary Provider: Juan Carlos Vines DO Advanced Stumper Feller:Chaz Leung PA-C The exam and treatment you received in the Emergency Department were for an urgent problem and are not intended as complete care. It is important that you follow up with a doctor, nurse practitioner, or physician?s assistant softball coach for ongoing care. If your symptoms become [...] opioids can be used to help relieve ogqxtcse-lo-skbrty pain and are often prescribed following a [...] be struggling with addiction, tell your health care analyst and ask for guidance or call SAMHSA?S National Helpline at 5-704-773-UGBU. v Source: US Department of Health and Human Services/Center for Disease Control & Prevention [facility] Medi (more content not included)... Normal [facility] ED Traumaon 01-16-2023 ED Trauma [id number]#[id number] Normal [facility] Electrolyteson 01-16-2023 Anion gap [Moles/Vol] 13 mmol/L Normal 9-17 [facility] Comment on above: Performed By: #### I OCAL, MG, PATRICK, CDP, BMP #### [employer] [address] [place] [address] Airport Manager: Paul Hodge MD Chloride [Moles/Vol] 104 mmol/L Normal 98-107 [facility] Comment on above: Performed By: #### I OCAL, MG, PATRICK, CDP, BMP #### [employer] [address] [place] [address] Airport Manager: Paul Hodge MD CO2 [Moles/Vol] 21 mmol/L Normal 20-31 [facility] Comment on above: Performed By: #### I OCAL, MG, PATRICK, CDP, BMP #### [employer] [address] [place] [address] Airport Manager: Paul Hodge MD Potassium [Moles/Vol] 4.2 mmol/L Normal 3.7-5.3 [facility] Comment on above: Performed By: #### I OCAL, MG, PATRICK, CDP, BMP #### [employer] [address] [place] [address] Airport Manager: Paul Hodge MD Sodium [Moles/Vol] 138 mmol/L Normal 135-144 [facility] Comment on above: Performed By: #### I OCAL, MG, PATRICK, CDP, BMP #### [employer] [address] [place] [address] Airport Manager: Paul Hodge MD Ethanolon 01-16-2023 Ethanol [Mass/Vol] mg/dL Normal <=7 [facility] Comment on above: Performed By: #### 2 405296 #### [facility] [address] [place] [address] Ethanol Alcoholon 01-16-2023 Ethanol [Mass/Vol] mg/dL Normal <10 [facility] Comment on above: Performed By: #### I OCAL, MG, PATRICK, CDP, BMP #### [facility] [address] [place] [address] Airport Manager: Paul Hodge MD Ethanol percent <0.010 Normal <0.010 [facility] Comment on above: Performed By: #### I OCAL, MG, PATRICK, CDP, BMP #### [facility] [address] [place] [address] Airport Manager: Paul Hodge MD Glucoseon 01-16-2023 Glucose [Mass/Vol] 120 mg/dL High 70-99 [facility] Comment on above: Performed By: #### I OCAL, MG, PATRICK, CDP, BMP #### [address] [address] Airport Manager: Paul Hodge MD Hemoglobin A1Con 01-16-2023 Glucose [Mass/Vol] 131 mg/dL Normal [facility] Comment on above: Result Comment: The ADA and AACC recommend providing the estimated average glucose result to permit better patient understanding of their HBA1c result. Performed By: #### I OCAL, MG, PATRICK, CDP, BMP #### [facility] [address] [place] [address] Airport Manager: Paul Hodge MD HbA1c (Bld) [Mass fraction] 6.2 % High 4.0-6.0 [facility] Comment on above: Performed By: #### I OCAL, MG, PATRICK, CDP, BMP #### [facility] [address] [place] [address] Airport Manager: Paul Hodge MD Hep Func Panelon 01-16-2023 Albumin [Mass/Vol] 3.5 g/dL Normal 3.3-5.0 [facility] Comment on above: Performed By: #### 1 2513484, 0156031, 9748725, 3677372, 8091269, 2026687, 7725288, 00314423, 2170081 ####[facility] [address] [place] [address] Albumin/Globulin (S) [Mass conc ratio] 1.0 Low 1.1-2.2 [facility] Comment on above: Performed By: #### 1 9150981, 7189855, 6842150, 5350130, 2550257, 4723832, 6976563, 54393223, 3155386 ####[place] [address] [place] [address] ALP [Catalytic activity/Vol] 84 Int._Unit/L Normal 21-98 [facility] Comment on above: Performed By: #### 1 1255825, 9356498, 5955885, 1425677, 7267175, 5318102, 3380446, 41655179, 3236481 ####[facility] [address] [place] [address] ALT No additional P-5'-P [Catalytic activity/Vol] 11 Int._Unit/L Normal 6-46 [facility] Comment on above: Performed By: #### 1 7177485, 2388213, 9043493, 0889965, 1320120, 9815757, 1404269, 22123561, 6238614 ####[facility] [address] [place] [address] AST [Catalytic activity/Vol] 18 Int._Unit/L Normal 5-43 [facility] Comment on above: Performed By: #### 1 8318333, 4750879, 8738422, 6744303, 8151321, 1544717, 8404352, 46752678, 7088758 ####[facility] [address] [place] [address] Bilirubin [Mass/Vol] 1.0 mg/dL Normal 0.0-1.1 [facility] Comment on above: Performed By: #### 1 3455600, 3923702, 0797528, 0975671, 7725237, 8075621, 0887509, 15487125, 0514020 ####[facility] [address] [place] [address] Bilirubin.direct [Mass/Vol] 0.1 mg/dL Normal 0.1-0.4 [facility] Comment on above: Performed By: #### 1 8300808, 9520683, 5877861, 8286923, 5913939, 7605367, 5708622, 68246294, 4949527 ####[place] [address] [place] [address] Bilirubin.indirect [Mass or moles/Vol] 0.9 mg/dL Normal 0.1-0.9 [facility] Comment on above: Performed By: #### 1 7485423, 2492981, 1772294, 6514530, 4655312, 7627857, 2533824, 14572532, 6658809 ####[address] [address] Globulin (S) [Mass/Vol] 3.5 g/dL Normal 1.4-4.0 [facility] Comment on above: Performed By: #### 1 7316491, 3164876, 3369841, 1519152, 9736831, 0561993, 6697113, 72782547, 9549185 ####[place] [address] [place] [address] Protein [Mass/Vol] 7.0 g/dL Normal 6.0-7.8 [facility] Comment on above: Performed By: #### 1 9764071, 3950480, 2833673, 6620509, 2915360, 5616391, 9231743, 34495487, 9562793 ####[place] [address] [place] [address] Lactic Acidon 01-16-2023 Lactate [Mass/Vol] 1.9 mmol/L Normal 0.5-2.2 [facility] Comment on above: Performed By: #### 1 6054308, 6803342, 3087685, 6983850, 0294716, 8786080, 9792334, 53790597, 2110786 ####[facility] [address] [place] [address] Lipase Levelon 01-16-2023 Lipase [Catalytic activity/Vol] 26 U/L Normal 13-58 [facility] Comment on above: Performed By: #### 1 4620861, 8272515, 8431138, 5998883, 1545373, 8297688, 4142192, 71389495, 2055265 ####[facility] [address] [place] [address] Monitor Recordon 01-16-2023 Monitor Record [id number]#[id number] Normal [facility] Monitor Record [id number]#1.00TIFF Normal [facility] PTon 01-16-2023 INR Coag (PPP) [Relative time] 1.1 {INR} Normal [facility] Comment on above: Result Comment: Therapeutic Range: Moderate Anticoagulant Intensity: INR = 2.0-3.0 High Anticoagulant Intensity: INR = 2.5-3.5 Performed By: #### I OCAL, MG, PATRICK, CDP, BMP #### [employer] [address] [place] [address] Airport Manager: Paul Hodge MD PT Coag (PPP) [Time] 14.2 s Normal 11.7-14.9 [facility] Comment on above: Performed By: #### I OCAL, MG, PATRICK, CDP, BMP #### [employer] [address] [place] [address] Airport Manager: Paul Hodge MD PT & PTTon 01-16-2023 aPTT Coag (PPP) [Time] 30.7 second(s) Normal 25.1-36.5 [facility] Comment on above: Result Comment: Para [...] same coagulation reagent and instrumentation as [facility]. Currently there are no coagulation studies available worldwide for children to 14 days, and no normal ranges. Heparin therapeutic range (represented by Anti-Factor Xa activity of 0.2 - 0.4 U/mL) corresponds to PTT of 56.6 - 109.0 sec. Performed By: #### 1 4093980, 0169758, 2332306, 6364393, 7507114, 4905195, 7177747, 79009412, 2512453 ####[facility] [address] [place] [address] INR Coag (PPP) [Relative time] 1.2 {INR} Invalid Interpretation Code [facility] Comment on above: Result Comment: INR results are specifically intended to assess patients stabilized on long-term Anticoagulation therapy suggested INR?s ?Less Intensive Anticoagulation? 2.0 ? 3.0 Conventional Range 3.0 ? 4.5 Performed By: #### 1 3685286, 2096213, 5912683, 2659165, 4807004, 0660027, 4505878, 71925797, 8537452 ####[facility] [address] [place] [address] PT Coag (PPP) [Time] 12.8 second(s) High 9.4-12.5 [facility] Comment on above: Result Comment: 15 [...] same coagulation reagent and instrumentation as [facility]. Currently there are no coagulation studies available worldwide for children to 14 days, and no normal ranges. Performed By: #### 1 0052426, 9606554, 4969388, 5853302, 6713737, 8310080, 8678499, 19006708, 0861330 ####[facility] [address] [place] [address] TSH w/reflex to FT4on 2022 Thyroid Stim. Horm. 1.18 uIU/mL Normal 0.30-5.00 [facility] Comment on above: Performed By: #### I OCAL, MG, PATRICK, CDP, BMP #### [facility] [address] [place] [address] 0580008 Airport Manager: Paul Hodge MD Thyroxine, Freeon 01-16-2023 Thyroxine, Free 1.4 ng/dL Normal 0.9-1.7 [facility] Comment on above: Performed By: #### I OCAL, MG, PATRICK, CDP, BMP #### [facility] [address] [place] [address] [phone] Airport Manager: Paul Hodge MD Transfer Documentson 023 Transfer Documents [id number]#[id number] Normal [facility] Trauma Profileon 01-16-2023 Body Temp. 37.0 Normal [facility] Comment on above: Performed By: #### I OCAL, MG, PATRICK, CDP, BMP #### [facility] [address] [place] [address] Airport Manager: Paul Hodge MD Carboxy Hgb 2.6 % Normal 0-5 [facility] Comment on above: Result Comment: Reference Range: Non-Smokers 0-2% Average Smoker 2-4% Heavy Smoker <10% Performed By: #### I OCAL, MG, PATRICK, CDP, BMP #### [address] [address] Airport Manager: Paul Hodge MD FIO2 INFORMATION NOT PROVIDED Normal [facility] Comment on above: Performed By: #### I OCAL, MG, PATRICK, CDP, BMP #### [address] [address] Airport Manager: Paul Hodge MD HCO3 (Bld) [Moles/Vol] 22.3 mmol/L Low 24-30 M [facility] Comment on above: Performed By: #### I OCAL, MG, PATRICK, CDP, BMP #### [address] [address] Airport Manager: Paul Hodge MD Negative Base Excess 1.4 mmol/L Normal 0.0-2.0 [facility] Comment on above: Performed By: #### I OCAL, MG, PATRICK, CDP, BMP #### [address] [id number] Airport Manager: Paul Hodge MD Oxygen saturation in Blood 86.1 % High 60.0-85.0 [facility] Comment on above: Performed By: #### I OCAL, MG, PATRICK, CDP, BMP #### [address] [address] Airport Manager: Paul Hodge MD pCO2 36.2 mm Hg Low 39-55 [facility] Comment on above: Performed By: #### I OCAL, MG, PATRICK, CDP, BMP #### [address] [id number] Airport Manager: Paul Hodge MD pH (Bld) 7.407 [pH] Normal 7.320-7.420 [facility] Comment on above: Performed By: #### I OCAL, MG, PATRICK, CDP, BMP #### [facility] [address] [place] [address] Airport Manager: Paul Hodge MD pO2 52.2 mm Hg High 30-50 [facility] Comment on above: Performed By: #### I OCAL, MG, PATRICK, CDP, BMP #### [facility] [address] [place] [address] Airport Manager: Paul Hodge MD Blood Bank BILL FOR SERVICES PERFORMED Normal [facility] Comment on above: Performed By: #### I OCAL, MG, PATRICK, CDP, BMP #### [facility] [address] [place] [address] Airport Manager: Paul Hodge MD Troponinon 01-16-2023 Troponin, High Sens 17 ng/L Normal 0-22 [facility] Comment on above: Result Comment: High Sensitivity Troponin values cannot be compared with other Troponin methodologies. Performed By: #### I OCAL, MG, PATRICK, CDP, BMP #### [facility] [employer] [address] [place] [address] Airport Manager: Palu Hodge MD Troponin I.cardiac [Mass/Vol] 6.40 pg/mL Low 15.90-38.40 [facility] Comment on above: Result Comment: The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 0.0-0.1 [facility] Comment on above: Performed By: #### C BC #### [facility] [address] [place] [address] Dr. Adrianna Luevano Basophils/100 WBC (Bld) 0.5 % Normal 0.2-2.0 [facility] Comment on above: Performed By: #### C BC #### [facility] [address] [place] [address] Dr. Adrianna Luevano EO # 0.5 103/ul Normal 0.0-0.7 [facility] Comment on above: Performed By: #### C BC #### [facility] [address] [place] [address] Dr. Adrianna Luevano Eosinophils/100 WBC (Bld) 6.2 % Normal 0.9-7.0 [facility] Comment on above: Performed By: #### C BC #### [facility] [address] [place] [address] Dr. Adrianna Luevano Erythrocyte distribution width (RBC) [Ratio] 13.6 % Normal 11.0-15.0 [facility] Comment on above: Performed By: #### C BC #### [facility] [address] [place] [address] Dr. Adrianna Luevano Hematocrit (Bld) [Volume fraction] 45.9 % Normal 42.0-54.0 [facility] Comment on above: Performed By: #### C BC #### [facility] [address] [place] [address] Dr. Adrianna Luevnao Hemoglobin (Bld) [Mass/Vol] 15.2 g/dL Normal 14.0-18.0 [facility] Comment on above: Performed By: #### C BC #### [facility] [address] [place] [address] Dr. Adrianna Luevano IG # 0.04 10e3/ul Critically high 0.00-0.03 [facility] Comment on above: Performed By: #### C BC #### [facility] [address] [place] [address] Dr. Adrianna Luevano IG % 0.5 % Normal 0.0-0.5 [facility] Comment on above: Performed By: #### C BC #### [facility] [address] [place] [address] Dr. Adrianna Luevano LYMPH # 1.2 103/ul Normal 1.2-3.8 [facility] Comment on above: Performed By: #### C BC #### [facility] [address] [place] [address] Dr. Adrianna Luevano Lymphocytes/100 WBC (Bld) 13.7 % Critically low 20.5-60.0 [facility] Comment on above: Performed By: #### C BC #### [facility] [address] [place] [address] Dr. Adrianna Luevano MANUAL DIFF REQ NO Normal [facility] Comment on above: Performed By: #### C BC #### [facility] [address] [place] [address] Dr. Adrianna Luevano MCH (RBC) [Entitic mass] 29.9 pg Normal 25.9-34.0 [facility] Comment on above: Performed By: #### C BC #### [facility] [address] [place] [address] Dr. Adrianna Luevano MCHC (RBC) [Mass/Vol] 33.1 g/dL Normal 29.9-35.2 [facility] Comment on above: Performed By: #### C BC #### [facility] [address] [place] [address] Dr. Adrianna Luevano MCV (RBC) [Entitic vol] 90.4 fL Normal 80.0-94.0 [facility] Comment on above: Performed By: #### C BC #### [facility] [address] [place] [address] Dr. Adrianna Luevano MONO # 1.1 103/ul Critically high 0.3-0.8 [facility] Comment on above: Performed By: #### C BC #### [facility] [address] [place] [address] Dr. Adrianna Luevano Monocytes/100 WBC (Bld) 12.6 % Critically high 1.7-12.0 [facility] Comment on above: Performed By: #### C BC #### [facility] [address] [place] [address] Dr. Adrianna Luevano NEUT # 5.7 103/ul Normal 1.4-6.5 [facility] Comment on above: Performed By: #### C BC #### [facility] [address] [place] [address] Dr. Adrianna Luevano Neutrophils/100 WBC (Bld) 66.5 % Normal 43.0-75.0 [facility] Comment on above: Performed By: #### C BC #### [facility] [address] [place] [address] Dr. Adrianna Luevano Platelet mean volume (Bld) [Entitic vol] 11.3 fL Normal 9.5-13.5 [facility] Comment on above: Performed By: #### C BC #### [facility] [address] [place] [address] Dr. Adrianna Luevano PLT 183 103/ul Normal 150-450 [facility] Comment on above: Performed By: #### C BC #### [facility] [address] [place] [address] Dr. Adrianna Luevano RBC 5.08 106/ul Normal 4.70-6.10 [facility] Comment on above: Performed By: #### C BC #### [facility] [address] [place] [address] Dr. Adrianna Luevano WBC 8.6 103/ul Normal 4.0-11.0 [facility] Comment on above: Performed By: #### C BC #### [facility] [address] [place] [address] Dr. Adrianna Luevano PROF CHEM 8 (BAS METB)on Anion gap [Moles/Vol] 13.4 mmol/L Normal [facility] Comment on above: Performed By: #### B MP #### [facility] [address] [place] [address] Dr. Adrianna Luevano Calcium [Mass/Vol] 8.9 mg/dL Normal 8.5-10.1 [facility] Comment on above: Performed By: #### B MP #### [facility] [address] [place] [address] Dr. Adrianna Luevano Chloride [Moles/Vol] 106 mmol/L Normal 98-107 [facility] Comment on above: Performed By: #### B MP #### [facility] [address] [place] [address] Dr. Adrianna Luevano CO2 [Moles/Vol] 23.1 mmol/L Normal 21.0-32.0 [facility] Comment on above: Performed By: #### B MP #### [facility] [address] [place] [address] [address] Adrianna Luevano Creatinine [Mass/Vol] 0.87 mg/dL Normal 0.70-1.30 [facility] Comment on above: Performed By: #### B MP #### [facility] [address] [place] [address] [address] Adrianna Luevano EGFR-AF SENEGALESE >60 Normal >=60 [facility] Comment on above: Performed By: #### B MP #### [facility] [address] [place] [address] [address] Adrianna Luevano EGFR-NON AF SENEGALESE >60 Normal >=60 [facility] Comment on above: Performed By: #### B MP #### [facility] [address] [place] [address] Dr. Adrianna Luevano Glucose [Mass/Vol] 104 mg/dL Normal 74-106 [facility] Comment on above: Performed By: #### B MP #### [facility] [address] [place] [address] [address] Adrianna Luevano Potassium [Moles/Vol] 4.5 mmol/L Normal 3.5-5.1 [facility] Comment on above: Performed By: #### B MP #### [facility] [address] [place] [address] [address] Adrianna Luevano Sodium [Moles/Vol] 138 mmol/L Normal 136-145 [facility] Comment on above: Performed By: #### B MP #### [facility] [address] [place] [address] [address] Adrianna Luevano Urea nitrogen [Mass/Vol] 22.0 mg/dL Critically high 7.0-18.0 [facility] [facility] Comment on above: Performed By: #### B MP #### [facility] [address] [place] [address] Dr. Adrianna Luevano Urea nitrogen/Creatinine [Mass ratio] 25.3 mg/mg Normal [facility] Comment on above: Performed By: #### B #### [facility] [address] [address] [address] Adrianna Luevano XR CHEST 2 Von [...] by: DANDY SANCHEZ Date: 2021-05-20 15:58 Normal [facility] CNOVon 08-17-2017 CNOV Office Visit (RADTSA) BREAOUSMANE Man ([id number]) 1940 MDate Time Provider Department08/17/17 10:00 AM [...] 7 (grade group 3), clinical stage IIB Q4sP6D3ZCKWJVIGB SUMMARY:DATES OF TREATMENT: external beam: 10/18/16-, prostate mecvtocrwzemd19/16/17?AREA TREATED: Pelvis/Prostate4,500cGy in 25 fractions, 3 Vivas, IMRT, 6MV?Prostate brachytherapy, Pd-103, 52 seeds, 100 GyINTERVAL HISTORY: The patient presents for routine follow-up overall doing well.PSA HISTORY:PSA. (no units)Date Value03/17/2017 <0.0612 <0.06 RADIOLOGY: Post-implant CT reviewed. Evidence of [...] 7 (grade group 3), clinical stage IIB Q6oY4X0Ahhpqxm overall doing well with excellent PSA response. No significantposttreatment problems. Plan to have patient back for follow-up exam in 6months.He continues close follow-up with his urologist Dr. Garcia including PSAevaluation.Signed by: Marylou Pagan, [facility]:Alpesh Dunn MD (Dr)[address], [place] [address]Xlbqp: [phone]: [phone] Provider: Marylou PAGAN [[id number]]Allergies As of Date: 08/17/2017(No Known Allergies)Date Reviewed: 08/17/2017Reviewed by: Chino ([facility]) Tom - Fully AssessedReason for [...] prostate cancer [Z85.46] INVALID FOR*Visit Notes:>> James Rowell RN TueAug 17, 2017 10:05 AM [...] (around 02/17/2018).Follow-up and Disposition History RecordedEncounter Number: [id number] Status:Closed by Marylou PAGAN MD on 08/19/17 [facility] CNOVSPon 08-17-2017 CNOVS Visit (SP) Office (HEMASA) OUSMANE GUIDRY ([id number]) 1940 MDate Time Provider Department08/17/17 10:30 AM CHINO MCGINNIS (ENGINEERING EQUIPMENT OPERATOR) LATISHA During your visit today, we recorded the following information about you: Blood pressure Weight 140/82 94.8 kgReferring Provider: Marylou PAGAN [[id number]]Allergies As of Date: 08/17/2017(No Known Allergies)Date Reviewed: 08/17/2017Reviewed by: Chino (Quality Control Director) Tom - Fully AssessedReason for Visit: Cancer [...] [Z85.46] INVALID FOR*Encounter Status:Closed by CHINO MCGINNIS ENGINEERING EQUIPMENT OPERATOR on 08/17/17 Normal [facility] PROGRESSon 08-17-2017 Protein HNO ID: [id number] thor: Marylou Matamorosice: (none)Author Type: PhysicianType: Progress NotesFiled: 08/19/2017 12:57 PMNote Text:Radiation Oncology - Follow Up NotePATIENT NAME: Park Aldrich : Prostate adenocarcinoma, 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, biopsy Gleasonscore 4 + 3 = 7 (grade group 3), clinical stage IIB F1vC0F7JIJPFUAKN SUMMARY:DATES OF TREATMENT: external beam: 10/18/16-, prostatebrachytherapy 12/23/16?AREA TREATED: Pelvis/Prostate4,500cGy in 25 fractions, 3 Vivas, IMRT, 6MV?Prostate brachytherapy, Pd-103, 52 seeds, 100 GyINTERVAL HISTORY: The patient presents for routine follow-up overall doingwell.PSA HISTORY:PSA. (no units)Date Value03/17/2017 <0.0601/28/2017 <0.06 RADIOLOGY: [...] 7 (grade group 3), clinical stage IIB S6lP5B9Xvocykb overall doing well with excellent PSA response. No significantposttreatment problems. Plan to have patient back for follow-up examin 6 months.He continues close follow-up with his urologist Dr. Garcia including PSAevaluation.Signed by: Marylou Pagan, [facility]:Alpesh Dunn MD ([facility])[address], [place] [address]Ddefl: [phone]: [phone] [facility] CNOVon 02-02-2017 CNOV Office Visit (RADTSA) BREAOUSMANE ([id number]) 1940 [facility] Time Provider Mglhdmczaq73/27/17 10:45 AM Marylou PAGAN During your visit today, we recorded the following information about you: Weight 93 kgJames Rowell LPN, RN 02/02/2017 10:59 AM SignedAUA= 22G Keyshawn Pagan MD 02/03/2017 3:29 PM SignedRadiation Oncology - Follow Up NotePATIENT NAME: Park Aldrich : Prostate adenocarcinoma, 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, biopsy [place] score 4+ 3 = 7 (grade group 3), clinical stage IIB O0uQ8I1NQWQFVVLH SUMMARY:DATES OF TREATMENT: external beam: 10/18/16-, prostate wevgortywqngy33/16/17?AREA TREATED: Pelvis/Prostate4,500cGy in 25 fractions, 3 Vivas, [...] 7 (grade group 3), clinical stage IIB A0dR9E4Jyotjrm overall doing well with improving post-implant urinary issues. Goodinitial PSA response. No modification in the follow-up or treatment plan basedon post-implant CT. Plan to have patient back for follow-up exam in 6 months.He continues close follow-up with his urologist Dr. Garcia with furtherschedule PSA the spring.Signed by: Marylou Pagan [facility]:Alpesh Dunn MD (DrC)[address] [place] [address]Omgih: [phone]: [phone] Provider: Marylou PAGAN [[id number]]Allergies As of Date: 02/02/2017(No Known Allergies)Date Reviewed: 02/02/2017Reviewed by: James Rowell RN - Fully AssessedReason for Visit: Follow Up [171]Primary Visit Diagnosis:Prostate cancer (HCC) [C61]Order(s):PSA (OUTSIDE) [6410725] Order #: [id number] as of 02/02/2017 Sig: TAMSULOSIN 0.4 MG [...] history recordedFollow-up and Disposition History RecordedEncounter Number: [id number] Status:Closed by Marylou PAGAN MD on 02/03/17 [facility] PROGRESSon 02-02-2017 Protein HNO ID: [id number] thor: Marylou Lovellervice: (none)Author Type: PhysicianType: Progress NotesFiled: 02/03/2017 3:29 PMNote Text:Radiation Oncology - Follow Up NotePATIENT NAME: Park Aldrich : Prostate adenocarcinoma, 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, biopsy Gleasonscore 4 + 3 = 7 (grade group 3), clinical stage IIB S7yJ8M8KIKJVDTCZ SUMMARY:DATES OF TREATMENT: external beam: 10/18/16-, prostatebrachytherapy [...] 7 (grade group 3), clinical stage IIB B5fK5U4Pekylhj overall doing well with improving post-implant urinary issues.Good initial PSA response. No modification in the follow-up or treatmentplan based on post-implant CT. Plan to have patient back for follow-up exam in 6 months.He continues close follow-up with his urologist Dr. Garcia with furtherschedule PSA the spring.Signed by: Marylou Pagan [facility]:Alpesh Dunn MD (DrC)[address] [facility] [place] [address]Gdmnh: [phone]: [phone] Normal [facility] CNOVon 01-05-2017 CNOV Office Visit (RADTSA) OUSMANE GUIDRY ([id number]) 1940 MDate Time Provider Zpbqizwmku41/29/17 10:45 AM Marylou PAGAN During your visit today, we recorded the following information about you: Blood pressure Weight 152/82 91.2 kgAyala Gross 01/05/2017 11:08 AM SignedAUA Score: 20Kylie CammyTirso Keyshawn Pagan MD 01/07/2017 10:28 AM SignedRadiation Oncology - Follow Up NotePATIENT NAME: Prak Aldrich : Prostate adenocarcinoma, 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, biopsy [place] score 4+ 3 = 7 (grade group 3), clinical stage IIB O6sJ7W6IJEBDCRPL SUMMARY:DATES OF TREATMENT: external beam: 10/18/16-, prostate dxonujetchism96/16/17?AREA TREATED: Pelvis/Prostate4,500cGy in 25 fractions, 3 Vivas, [...] 7 (grade group 3), clinical stage IIB Z3dU8Z7Dzbmnrp overall doing well with improving post-implant urinary issues. Noother new problems. Plan to have patient back in 2 weeks for post-implant CT,return for follow-up exam in 4 weeks.He continues close follow-up with his urologist Dr. Garcia as well.Signed by: Marylou Pagan, [facility]:Alpesh Dunn MD ([facility])[address], [place] [address]Wugjo: [phone]: [phone] Provider: Marylou PAGAN [[id number]]Allergies As of Date: 01/05/2017(No Known Allergies)Date Reviewed: 01/05/2017Reviewed by: Ayala Gross - Fully AssessedReason for Visit: Prostate Cancer [590] Cmt: 2 week post seed implant follow-upPrimary Visit Diagnosis:Prostate cancer (HCC) [C61]Order(s):PSA/PROSTSPE CAG DIAG [SQPSA] Order #: [id number] FUTUREPrescriptions as of 01/05/2017 Sig: ALPRAZOLAM 0.25 MG TABLET MELOXICAM 15 MG TABLET DOXAZOSIN 2 MG TABLETProblem List As Of Date 01/05/2017 Noted Resolved Prostate cancer (HCC) [C61] INVALID FOR*Visit Notes:>> Ayala Gross Wed Jan 05, 2017 11:01 AM Status: SignedAUA Score: 20Kyjose alfredo GrossFollow-up and Disposition History RecordedEncounter Number: [id number] Status:Closed by Marylou PAGAN MD on 01/07/17 [facility] PROGRESSon 01-05-2017 Protein HNO ID: [id number] thor: Marylou QuinterorService: (none)Author Type: PhysicianType: Progress NotesFiled: 01/07/2017 10:28 AMNote Text:Radiation Oncology - Follow Up NotePATIENT NAME: Park Aldrich : Prostate adenocarcinoma, 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, biopsy Gleasonscore 4 + 3 = 7 (grade group 3), clinical stage IIB F4tI3G1ZHGLNZQBH SUMMARY:DATES OF TREATMENT: external beam: 10/18/16-, prostatebrachytherapy [...] 7 (grade group 3), clinical stage IIB K3vP8Q6Zcfcfzh overall doing well with improving post-implant urinary issues. Noother new problems. Plan to have patient back in 2 weeks for post-implantCT, return for follow-up exam in 4 weeks.He continues close follow-up with his urologist Dr. Garcia as well.Signed by: Marylou Pagan [facility]:Alpesh Dunn MD (DrC)[address], [place] [address]Oguwi: [phone]: [phone] [facility] CNOVon 12-23-2016 CNOV Office Visit (RADTSA) YIFANOUSMANE Middleton ([id number]) 1940 MDate Time Provider Tfoperumii23/16/17 8:00 AM Marylou PAGAN During your visit today, we recorded the following information about you:Marylou Pagan MD 01/26/2017 11:01 AM SignedDate: 12/23/16[facility] transperineal brachytherapy implantSources: Pd-103Anesthesia:Kandice ologist: Dr. GarciaRadiation Oncologist: Dr. Pagan?This is [...] area. No excess activity seen,results documented.?Alvarado Pagan MD?[facility] InstituteReferring Provider: Marylou PAGAN [[id number]]Allergies As of Date: 12/23/2016(No Known Allergies)Date Reviewed: 11/15/2016Reviewed by: Phoebe (Rn) LAQUITA Segura - Fully AssessedPrimary Visit Diagnosis:Prostate cancer (HCC) [C61]Prescriptions as of 12/23/2016 Sig: ALPRAZOLAM 0.25 MG TABLET MELOXICAM 15 MG TABLET DOXAZOSIN 2 MG TABLETProblem List As Of Date 12/23/2016 Noted Resolved Prostate cancer (HCC) [C61] INVALID FOR*Follow-up and Disposition History RecordedEncounter Number: [id number] Status:Closed by Marylou PAGAN MD on 01/26/17 [facility] PROGRESSon 12-23-2016 Protein HNO ID: [id number] thor: Marylou Lovellervice: (none)Author Type: PhysicianType: Progress NotesFiled: 01/26/2017 11:01 AMNote Text:Date: 12/23/16[facility]: [facility] transperineal brachytherapy implantSources: Pd-103Anesthesia:generalUr ologist: Dr. [...] implant, patient identifiedby name and hospital ID bracelet. After anesthesia administered patientplaced in dorsal-lithotomy position [...] area. No excessactivity seen, results documented.?Alvarado Pagan MD?[facility] PROGRESSon 12-10-2016 Protein HNO ID: [id number] thor: Marylou Lovellervice: (none)Author Type: PhysicianType: Progress [...] planning volume using Pd-103 sources.Marylou Pagan MD [facility] CNOVon 12-07-2016 CNOV Office Visit (RADTSA) [facility]UIDRY ([id number]) 1940 [facility] Pppugezjwb60/31/17 8:00 AM Marylou PAGAN During your visit [...] 100 Gy to the planning volumeusing Pd-103 sources.ALVA Schaffereferring Provider: Marylou PAGAN [[id number]]Allergies As of Date: 12/07/2016(No Known Allergies)Date Reviewed: 11/15/2016Reviewed by: Phoebe (Rn) LAQUITA Segura - Fully AssessedReason for Visit: Volume Study [4052]Primary Visit Diagnosis:Prostate cancer (HCC) [C61]Prescriptions as of 12/07/2016 Sig: ALPRAZOLAM 0.25 MG TABLET MELOXICAM 15 MG TABLET DOXAZOSIN 2 MG TABLETProblem List As Of Date 12/07/2016 Noted Resolved Prostate cancer (HCC) [C61] INVALID FOR* Status:Closed by Marylou PAGAN MD on 12/10/16 Normal [facility] PROGRESSon 11-19-2016 Protein HNO ID: [id number] thor: Marylou Lovellervice: (none)Author Type: PhysicianType: Progress NotesFiled: 11/24/2016 12:36 AMNote Text:[facility] louisyRadiation Oncology DepartmentRADIATION ONCOLOGY - COMPLETION NOTEPATIENT: ALVINA GUIDRY: 1940DATES OF TREATMENT: 10/18/16-DIAGNOSIS : Prostate adenocarcinoma, 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, biopsy Gleasonscore 4 + 3 = 7 (grade group 3), clinical stage IIB M9jM0V6 AREATREATED: Pelvis/ProstateDELIVERED DOSE: Pelvis/Prostate:4,500cGy in 25 fractions, [...] 12/07/16 and interstitial prostateimplant scheduled 12/23/16 at [facility].Electronically SignedKeyshawn Pagan M.D. / CDT12:20 [facility]:Dr. WatersDr. Dunn [facility] CNOVon 11-15-2016 CNOV Office Visit (RADTSA) PEPITONAVJOTJASWINDEROUSMANE Middleton ([id number]) 1940 MDate Time Provider Fjwygemzjy75/9/17 9:00 AM Marylou PAGAN During your visit today, we recorded the following information about you: Blood pressure Weight 142/82 91.9 kgG Keyshawn Pagan MD 11/15/2016 10:14 AM SignedRadiation Oncology - On Treatment Review (OTR) NotePATIENT NAME: Park Aldrich :Prostate cancer (HCC) - ICD9: 185, ICD10: W28Cmhzussz adenocarcinoma, 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, ?biopsy Pj score 4 + 3 = 7(grade group 3), ?clinical stage IIB N7oA2V9, s/p TRUS-biopsy?COURSE: DefinitiveCurrent dose: 3780 cGy in [...] Status:Closed by Marylou PAGAN MD on 11/15/16 [facility] PROGRESSon 11-15-2016 Protein HNO ID: [id number] thor: Marylou Lovellervice: (none)Author Type: PhysicianType: Progress NotesFiled: 11/15/2016 10:14 AMNote Text:Radiation Oncology - On Treatment Review (OTR) NotePATIENT NAME: Park Aldrich :Prostate cancer (HCC) - ICD9: 185, ICD10: C75Bzstldni adenocarcinoma, 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, ?biopsy Pj score 4 + 3 =7 (grade group 3), ?clinical stage IIB B1xZ9N1, s/p TRUS-biopsy?COURSE: DefinitiveCurrent dose: 3780 cGy in [...] imaging reviewed. Continueradiation as outlined.Marylou Pagan MD [facility] CNOVmarlin 11-11-2016 CNOV Office Visit (RADTSA) OUSMANE GUIDRY ([id number]) 1940 MDate Time Provider Owhdtzdyce64/5/17 8:45 AM LAB/PORT АЛЕКСАНДРT MONI MCKENZIE During your visit today, we recorded the following information about you:James Rowell LPN, RN 11/11/2016 9:08 AM Dwight Guidry presents in [...] [C61] INVALID FOR*Visit Notes:>> James Rowell RN [facility] Nov 11, 2016 9:06 AM Status: Dwight Guidry presents in office today for: Lab Draw only .Ordering Provider: Alvarado Pagan M.D.Test (s) ordered:CBCMethod for obtaining blood: Phlebotomy was performed, accessing leftantecubital vein.Needle removed intact. Dressing secured.Patient denies discomfort, dizziness, light-headedness or weakness andleft the department without assist.Any Nguyễn Number: [id number] Status:Closed by JAMES ROWELL on 11/11/16 [facility] Remote Abs Gran + CBC (for F HC use only)on 11-11-2016 Absol Gran Count 3.36 k/uL Normal 1.45-7.50 [facility] Erythrocyte distribution width Auto Ratio (RBC) 13.8 % Normal 11.5-15.0 [facility] Erythrocytes (RBC) 4.71 10*6/uL Normal 4.20-6.00 [facility] Hematocrit (HCT) 41.8 % Normal 39.0-51.0 [facility] Hemoglobin mass conc (Bld) 14.3 g/dL Normal 13.0-17.0 [facility] MCH 30.4 pG Normal 26.0-34.0 [facility] MCHC mass conc (RBC) 34.2 g/dL Normal 30.5-36.0 [facility] MCV 88.7 fL Normal 80.0-100.0 [facility] Platelet mean volume (PMV) 12.0 fL Normal 9.0-12.7 [facility] Platelets 112 10*3/uL Low 150-400 [facility] WBC (Leukocytes) 5.13 10*3/uL Normal 3.70-11.00 [facility] CNOVon 11-08-2016 CNOV Office Visit (RADTSA) OUSMANE GUIDRY ([id number]) 1940 MDate Time Provider Ssfjqeagcp13/2/17 9:00 AM Marylou PAGAN During your visit today, we recorded the following information about you: Blood pressure Weight 126/80 92.1 kgG Keyshawn Pagan MD 11/08/2016 1:58 PM SignedRadiation Oncology - On Treatment Review (OTR) NotePATIENT NAME: Park Aldrich :Prostate cancer (HCC) - ICD9: 185, ICD10: Y50Neloalen adenocarcinoma, 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, ?biopsy Pj score 4 + 3 = 7(grade group 3), ?clinical stage IIB H3fK0U2, s/p TRUS-biopsy?COURSE: DefinitiveCurrent dose: 2880 cGy in [...] by Marylou PAGAN MD on 11/08/16 Normal [facility] PROGRESSon 11-08-2016 Protein HNO ID: [id number] thor: Marylou Lovellervice: (none)Author Type: PhysicianType: Progress NotesFiled: 11/08/2016 1:58 PMNote Text:Radiation Oncology - On Treatment Review (OTR) NotePATIENT NAME: Park Aldrich :Prostate cancer (HCC) - ICD9: 185, ICD10: U35Valyhxtt adenocarcinoma, 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, ?biopsy [place] score 4 + 3 =7 (grade group 3), ?clinical stage IIB M3eS2B9, s/p TRUS-biopsy?COURSE: DefinitiveCurrent dose: 2880 cGy in [...] imaging reviewed.Continue radiation as outlined.Marylou Pagan MD [facility] PROGRESSon 11-02-2016 Protein HNO ID: [id number] thor: Chino ([facility]) Helene: (none)Author Type: Nurse PractitionerType: Progress NotesFiled: 11/02/2016 2:04 PMNote Text:Radiation Oncology - On Treatment Review (OTR) NotePATIENT NAME: Park Aldrich :Prostate cancer (HCC) - ICD9: 185, ICD10: D18Yzsqsuza adenocarcinoma, 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, ?biopsy [place] score 4 + 3 =7 (grade group 3), ?clinical stage IIB M3uK5M0, s/p TRUS-biopsy?COURSE: DefinitiveCurrent dose: 1,980 cGy in [...] care coordination and treatment planning.Chino Mcginnis CNP [facility] CNOVon 11-01-2016 CNOV Office Visit (RADTSA) OUSMANE GUIDRY ([id number]) 1940 MDate Time Provider Department11/01/16 9:00 AM BOB LIU During your visit today, we recorded the following information about you: Blood pressure Weight 134/74 92.5 kgChino Mcginnis CNP 11/02/2016 2:04 PM SignedRadiation Oncology - On Treatment Review (OTR) NotePATIENT NAME: Park Aldrich :Prostate cancer (HCC) - ICD9: 185, ICD10: O74Llogjuum adenocarcinoma, 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, ?biopsy [place] score 4 + 3 = 7(grade group 3), ?clinical stage IIB O2cV2Y9, s/p TRUS-biopsy?COURSE: DefinitiveCurrent dose: 1,980 cGy in [...] and participateddirectly with care coordination and treatment planning.Nissa Noergies As of Date: 11/01/2016(No Known Allergies)Date Reviewed: 11/01/2016Reviewed by: Phoebe (RnRenee Segura RN - Fully AssessedReason for Visit: Radiotherapy On-treatment Visit [1722]Primary Visit Diagnosis:Prostate cancer (HCC) [C61]Prescriptions as of 11/01/2016 Sig: ALPRAZOLAM 0.25 MG TABLET MELOXICAM 15 MG TABLET DOXAZOSIN 2 MG TABLETProblem List As Of Date 11/01/2016 Noted Resolved Prostate cancer (HCC) [C61] INVALID FOR* Status:Closed by CHINO MCGINNIS CNP on 11/02/16 [facility] CNOVon 10-28-2016 CNOV Office Visit (RADTSA) BREAOUSMANE Man ([id number]) 1940 MDate Time Provider Department10/28/16 1:10 PM LAB/PORT RADT MONI MCKENZIE During your visit [...] [C61] INVALID FOR*Visit Notes:>> Phoebe Segura RN [facility] Oct 28, 2016 1:16 PM Status: Dwight Guidry presents in office today for: Lab Draw during OfficeVisit .Ordering Provider: Keyshawn Pagan M.D.Test (s) ordered:CBCMethod for obtaining blood: Phlebotomy was performed, accessing leftantecubital vein.Needle removed intact. Dressing secured.Patient denies discomfort, dizziness, light-headedness or weakness andleft the department without assist.Phoebe Segura RNEncounter Number: [id number] Status:Closed by PHOEBE SEGURA on 10/28/16 [facility] Remote Abs Gran + CBC (for F HC use only)on 10-28-2016 Absol Gran Count 5.02 k/uL Normal 1.45-7.50 [facility] Erythrocyte distribution width Auto Ratio (RBC) 13.6 % Normal 11.5-15.0 [facility] Erythrocytes (RBC) 4.90 10*6/uL Normal 4.20-6.00 [facility] Hematocrit (HCT) 43.4 % Normal 39.0-51.0 [facility] Hemoglobin mass conc (Bld) 14.6 g/dL Normal 13.0-17.0 [facility] MCH 29.8 pG Normal 26.0-34.0 [facility] MCHC mass conc (RBC) 33.6 g/dL Normal 30.5-36.0 [facility] MCV 88.6 fL Normal 80.0-100.0 [facility] Platelet mean volume (PMV) 12.0 fL Normal 9.0-12.7 [facility] Platelets 136 10*3/uL Low 150-400 [facility] WBC (Leukocytes) 6.89 10*3/uL Normal 3.70-11.00 [facility] PROGRESSon 10-26-2016 Protein HNO ID: [id number] thor: Marylou Matamorosice: (none)Author Type: PhysicianType: Progress NotesFiled: 10/26/2016 2:43 PMNote Text:Radiation Oncology - On Treatment Review (OTR) NotePATIENT NAME: Park Aldrich : Prostate adenocarcinoma, 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, biopsy Gleasonscore 4 + 3 = 7 (grade group 3), clinical stage IIB H4xR0C2, s/pTRUS-biopsyCOURSE: definitiveCurrent dose: 1080 cGy in 6 [...] imaging reviewed.Continue radiation as outlined.Marylou Pagan MD [facility] CNOVon 10-25-2016 CNOV Office Visit (RADTSA) BREAOUSMANE S ([id number]) 1940 [facility] Time Provider Department10/25/16 1:15 PM Marylou PAGAN During your visit today, we recorded the following information about you: Blood pressure Weight 142/68 92.4 kgG Keyshawn Pagan MD 10/26/2016 2:43 PM SignedRadiation Oncology - On Treatment Review (OTR) NotePATIENT NAME: Park Aldrich : Prostate adenocarcinoma, 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, biopsy Pj score 4+ 3 = 7 (grade group 3), clinical stage IIB Y5eC0R9, s/p TRUS-biopsyCOURSE: definitiveCurrent dose: 1080 cGy in [...] well. Chart and imaging reviewed. Continueradiation as outlined.Marylou Pagan MDAllergies As of Date: 10/25/2016(No Known Allergies)Date Reviewed: 10/25/2016Reviewed by: Phoebe NunezRn) LAQUITA Segura - Fully AssessedReason for Visit: Radiotherapy On-treatment Visit [1722]Primary Visit Diagnosis:Prostate cancer (HCC) [C61]Prescriptions as of 10/25/2016 Sig: ALPRAZOLAM 0.25 MG TABLET MELOXICAM 15 MG TABLET DOXAZOSIN 2 MG TABLETProblem List As Of Date 10/25/2016 Noted Resolved Prostate cancer (HCC) [C61] INVALID FOR* Status:Closed by Mayrlou PAGAN MD on 10/26/16 [facility] CNOVon 10-18-2016 CNOV Office Visit (RADTSA) OUSMANE GUIDRY ([id number]) 1940 MDate Time Provider Department10/18/16 9:30 AM Marylou PAGAN During your visit today, we recorded the following information about you: Blood pressure Weight 122/78 91.6 kgG Keyshawn Pagan MD 10/18/2016 10:40 AM SignedRadiation Oncology - On Treatment Review (OTR) NotePATIENT NAME: Park ThomasBrionna : Prostate adenocarcinoma, 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, biopsy [place] score 4+ 3 = 7 (grade group 3), clinical stage IIB F0gJ4O5, s/p TRUS-biopsyCOURSE: definitiveCurrent dose: 180 cGy in [...] radiation as prescribed.Cuauhtemoc Schaffer Provider: Marylou PAGAN [[id number]]Allergies As of Date: 10/18/2016(No Known Allergies)Date Reviewed: [...] Status:Closed by Marylou PAGAN MD on 10/18/16 [facility] PROGRESSon 10-18-2016 Protein HNO ID: [id number] thor: Marylou Lovellervice: (none)Author Type: PhysicianType: Progress NotesFiled: 10/18/2016 10:40 AMNote Text:Radiation Oncology - On Treatment Review (OTR) NotePATIENT NAME: Park Aldrich : Prostate adenocarcinoma, 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, biopsy Gleasonscore 4 + 3 = 7 (grade group 3), clinical stage IIB L1hR1T1, s/pTRUS-biopsyCOURSE: definitiveCurrent dose: 180 cGy in 25 [...] treatment given. Continue radiation asprescribed.Marylou Pagan MD [facility] CT NON-RADIOLOGY -NBNRo n 10-12-2016 [facility] CT NON-RADIOLOGY -NBNR [facility] - CT Images - Obtained Outside of Imaging [place] [id number] [facility] CNOVon 10-12-2016 CNOV Office Visit (RADTSA) YIFANOUSMANE Middleton ([id number]) 1940 MDate Time Provider Department10/12/16 2:30 PM Marylou PAGAN During your visit today, we recorded the following information about you:Referring Provider: Marylou PAGAN [[id number]]Allergies As of Date: 10/12/2016(No Known Allergies)Date Reviewed: 10/12/2016Reviewed by: Phoebe (Rn) LAQUITA Segura - Fully AssessedPrimary Visit Diagnosis:Cancer of prostate w/med recur risk (T2b-c or [place] 7 or PSA 10-20) (HCC) [C61] Other Visit Diagnosis:Malignant neoplasm of prostate (HCC) [C61]Order(s):CT SIM PLANNING RADIATION ONCOLOGY [[id number]] Order #: [id number] RADIATION TREATMENT PER RADIATION ONCOLOGIST PLAN [[id number]] Order #: [id number]: 1Prescriptions as of 10/12/2016 Sig: ALPRAZOLAM 0.25 MG TABLET MELOXICAM 15 MG TABLET DOXAZOSIN 2 MG TABLETProblem List As Of Date 10/12/2016 Noted Resolved Prostate cancer (HCC) [C61] INVALID FOR* Status:Closed by Marylou PAGAN MD on 10/13/16 [facility] CNOV Office Visit (RADTSA) OUSMANE GUIDRY ([id number]) 1940 MDate Time Provider Department10/12/16 2:00 PM Marylou PAGAN During your visit today, we recorded the following information about you: Blood pressure Weight 146/76 91.9 kgG Keyshawn Pagan MD 10/15/2016 10:10 AM SignedRadiation Oncology - Follow-Up NotePATIENT NAME: Park HumphreyCARONTAWANNA PROVIDER: Dr. GarciaDIAGNOSIS: 76 year old male with prostate adenocarcinoma, 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,biopsy Pj score 4 + 3 = 7 (grade group 3), clinical stage IIB M4dF1C4,s/p TRUS-biopsyHPI: Here today after staging studies as [...] 7 (grade group 3), clinical stage IIB B4fA6W3, s/p TRUS-biopsyStaging study without evidence of metastatic [...] withpatient. Consent form obtained.Signed by: Marylou Pagan, [facility]:Alpesh Dunn MD ([facility])[address] [place] [address]Tmgyi: [phone]: [phone] Provider: Marylou PAGAN [[id number]]Allergies As of Date: 10/12/2016(No Known Allergies)Date Reviewed: 10/12/2016Reviewed by: Phoebe (Rn) LAQUITA Segura - Fully AssessedReason for Visit: Prostate Cancer [590]Primary Visit Diagnosis:Prostate cancer (HCC) [C61]Prescriptions as of 10/12/2016 Sig: ALPRAZOLAM 0.25 MG TABLET MELOXICAM 15 MG TABLET DOXAZOSIN 2 MG TABLETProblem List As Of Date 10/12/2016 Noted Resolved Prostate cancer (HCC) [C61] INVALID FOR* Status:Closed by Marylou PAGAN MD on 10/15/16 [facility] PROGRESSon 10-12-2016 Protein HNO ID: [id number] thor: Marylou Crain: (none)Author Type: PhysicianType: Progress NotesFiled: 10/15/2016 10:10 AMNote Text:Radiation Oncology - Follow-Up NotePATIENT NAME: Park Aldrich PROVIDER: Dr. GarciaDIAGNOSIS: 76 year old male with prostate adenocarcinoma, initial PSA35.73, biopsy Pj score 4 + 3 = 7 (grade group 3), clinical stageIIB L5tP6J7, s/p TRUS-biopsyHPI: Here today after staging studies [...] 7 (grade group 3), clinical stage IIB J0rX3Q8, s/pTRUS-biopsyStaging study without evidence of metastatic process. [...] patient. Consent form obtained.Signed by: Marylou Pagan, [facility]:Alpesh Dunn MD (DrC)[address] [facility] [place] [address]Xodfd: [phone]: [phone] [facility] Protein HNO ID: [id number] thor: Marylou QuinterorService: (none)Author Type: PhysicianType: Progress NotesFiled: 10/13/2016 12:34 AMNote Text:PARK [id number]/06/2016CleC[facility] Hospitaladiation Oncology DepartmentSIMULATION NOTEDATE OF SIMULATION: 10/12/2016THERAPIST: Melba Prasad: Laura SimulatorDIAGNOSIS: Malignant neoplasm of umfxsfyyY92ATMB: ProstateCONTRAST: n/aConsent in Epic: yesPATIENT POSITION: Supine.FIXATION DEVICE: In order to achieve accurate and reproducible treatments,the patient is immobilized with sbrt knee sponge and foot bolsterA time-out was conducted and recorded by the therapist. CT scan wascompleted for target localization and planning. Field arrangement willbe determined after plan has been completed.The patient is scheduled for a verification simulation on the [facility] to ensure proper set-up and field arrangement is correct prior tothe first treatment of primary and boost vivas if applicable.Patient education will be completed per nursing.Electronically SignedKeyshawn Pagan M.D. / NOHEMI10/12/20163:32 PM [facility] HNO ID: [id number] thor: Marylou Lovellervice: (none)Author Type: PhysicianType: Progress NotesFiled: 10/16/2016 12:33 AMNote Text:PARK [id number] 10/12/2016[facility] SanduskyRadiation Oncology DepartmentRADIATION ONCOLOGY - TREATMENT PLANNING [...] SignedKeyshawn Pagan M.D. / NOHEMI10/15/201612:32 PM [facility] CT-CT ABD/PELVIS W CON IMPOR Ton 10-04-2016 CT-CT ABD/PELVIS W CON IMPORT Images were obtained outside of [facility] [id number] [facility] PROGRESSon 10-01-2016 Protein HNO ID: [id number] thor: Marylou Matamorosice: (none)Author Type: PhysicianType: Progress NotesFiled: 10/01/2016 2:32 PMNote Text:Radiation Oncology - New Patient/Consult NotePATIENT NAME: Park Aldrich PROVIDER: Dr. GarciaDIAGNOSIS: 76 year old male with prostate adenocarcinoma, initial PSA35.73, biopsy [place] score 4 + 3 = 7 (grade group 3), clinical stageIIB T4rY3T5, s/p TRUS-biopsyHPI: 76 year old male with [...] 10% free on 06/19/16.Other PSAs include:22.5 06/18/173.84 10/13/111.98 06/10/08He underwent transrectal ultrasound-guided biopsy and 1717 with pathologydemonstrating adenocarcinoma from the right base Pj 7 (3+4) bajjxbtmj68% of those cores as well as right lateral base, [place] 7 (4+3).Overall patient is fairly active without [...] 7 (grade group 3), clinical stage IIB P0xC3E2, s/pTRUS-biopsyPatient has a localized but high risk adenocarcinoma prostate based onpalpable disease, PSA greater than 20 and Pj 7 (4+3). I wouldconcur with definitive treatment [...] withbrachytherapy boost. We discussed potential acute and zeuj-woydrqibxqazb-aftuttm effects. We discussed the role of androgen [...] is currently being scheduled.Signed by: Marylou Pagan, [facility]:Alpesh Dunn MD (DrC)[address] [facility] [place] [address]Xexpi: [phone]: [phone] [facility] CNCNPATEDon 09-29-2016 CNCNPATED Education (RADTSA) OUSMANE GUIDRY ([id number]) 1940 MDate Time Provider Department09/29/16 PHOEBE SEGURA (RN) Elidia for Visit: Patient Education [91]Visit Notes:>> Phoebe NunezRn) LAQUITA Segura TueSep 29, 2016 1:58 PM Status: SignedRadiation Therapy - Patient Education NotePATIENT NAME: Park Aldrich 2016[facility] FACILITY/LOCATION: NCCCREADINESS TO LEARNCognitive Ability: Alert and [...] denied need for social work, vanservice, and [employer].Signed by: Rachel Gonzales Visit Diagnosis:Prostate cancer (HCC) [...] Routin* Status:Closed by PHOEBE SEGURA on 09/29/16 [facility] 09-29-2016 CNCO Letter Yuki Guidry:How to activate your [facility] ABS Medicalt Account 1. Visit the [employer] Signup page at [email or web address] 2. Identify yourself using your one-time use activation code: [email or web address] 3. Follow the on-screen prompts to choose your own secure username andpasswordThe following information will be necessary to access your account for thefirst time:Information needed for sign-up:Your custom activation code used one-time only for the initial accountset-up.Your date of birthThe last 4 digits of your social security numberWhat to do next:Fill in the requested information on the Identify Yourself Form [email or web address] , click Next.Create your login and password, choose a [employer] ID and password that will beeasy for you to use, but impossible for anyone else to guess.Pick a security question that will assist you in the event you forget yourpassword the next time you log-on.If you have difficulty activating your account, please call our [employer] at [phone] or toll free at .We hope you enjoy using [employer]!Kindest Regards,[facility] [employer] Team [facility] CNOVon 09-29-2016 CNOV Office Visit (RADTSA) OUSMANE GUIDRY ([id number]) 1940 MDate Time Provider Department09/29/16 1:00 PM Marylou PAGAN During your visit today, we recorded the following information about you: Blood pressure Weight Height 136/80 92.5 kg 1.721 Yolis Segura, RN, RN 09/29/2016 1:07 PM SignedAUA JOSPEH Hinds MD 10/01/2016 2:32 PM SignedRadiation Oncology - New Patient/Consult NotePATIENT NAME: Park Aldrich PROVIDER: Dr. GarciaDIAGNOSIS: 76 year old male with prostate adenocarcinoma, 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,biopsy [place] score 4 + 3 = 7 (grade group 3), clinical stage IIB J3iM9N0,s/p TRUS-biopsyHPI: 76 year old male with prostate [...] 10% free on 06/19/16. OtherPSAs include:22.5 06/18/173.84 //111.98 06/10/08He underwent transrectal ultrasound-guided biopsy and 1717 [...] 7 (grade group 3), clinical stage IIB I0kA0G7, s/p TRUS-biopsyPatient has a localized but high risk adenocarcinoma prostate based on palpabledisease, PSA greater than 20 and [place] 7 (4+3). I would concur withdefinitive treatment [...] is currently being scheduled.Signed by: Marylou Pagan, [facility]:Alpesh Dunn MD ([facility])[address] [place] [address]Vbnzs: [phone]: [phone] Provider: LUIS GARCIA [[id number]]Allergies As of Date: 09/29/2016(No Known Allergies)Date Reviewed: 09/29/2016Reviewed by: Phoebe (Rn) LAQUITA Segura - Fully AssessedPrimary Visit Diagnosis:Prostate cancer (HCC) [C61] Other Visit Diagnosis:Screening for nephropathy [Z13.89]Order(s):CREATININ E BLD [SQCRET] Order #: [id number] FUTURE NM WHOLE BODY BONE SCAN [[id number]] Order #: [id number] FUTURE CT ABD/PEL W IVCON [[id number]] Order #: [id number] FUTURE [] iv contrast (radiology procedure)CT ABD/PEL [...] RN 09/29/2016 12:42 PM >> PHOEBE SEGURA [facility] Sep 29, 2016 12:42 PM Received from: External Pharmacy MELOXICAM 15 MG TABLET >> Phoebe Segura RN, RN 09/29/2016 12:42 PM >> PHOEBE SEGURA Sep 29, 2016 12:42 PM Received from: External Pharmacy DOXAZOSIN 2 MG TABLET >> Phoebe Segura RN, RN 09/29/2016 12:42 PM >> PHOEBE SEGURA Sep 29, 2016 12:42 PM Received from: External PharmacyProblem List As Of Date 09/29/2016 Noted Resolved Prostate cancer (HCC) [C61] INVALID FOR*Visit Notes:>> Phoebe Segura RN Wed Sep 29, 2016 12:45 PM Status: SignedAUA BO Hindsrescriptions ordered this encounter Disp Refills Start End [...] guidelinesFollow-up and Disposition History RecordedLetter TextToll Free: [phone] [facility] - Sexcni[address] [facility] [address] [place], [place] [address]Krouc: [phone]: [facility] - [id number] [place], [place] [address]Jkked: [phone]: [facility] - Rmwgcex[address] [place], [place] [address]Hefpk: [phone]: benid Quach M.D., Sanjana Francis M.D.Bennie Luna M.D.Laurel Loja M.D.Kay Souza M.D., Catrachito Liu M.D.Name: Park CookLehigh Valley Hospital–Cedar [facility]#: [id number] of Service: 09/29/2016Page: 2016Luis Garcia MD2800 Krish Colón [facility] [address]Xxwwnow Name: Park GuidryDate of : 1940[facility] #: [id number] of Visit: 09/29/2016Dear Dr. Valero had the pleasure of seeing your patient, Park Guidry, at [facility], a department [facility] [place].The details on his history and treatment plan are included in my office note,a copy of which is included for your records.I appreciate the opportunity to participate in Mr. Guidry's evaluationand treatment. If you have any questions or concerns, please feel free tocontact me.Sincerely Yours,Marylou Pagan MD(signed electronically to expedite mailing)Radiation Oncology - New Patient/Consult NotePATIENT NAME: Park HumphreyATITAWANNA PROVIDER: Dr. GarciaDIAGNOSIS: 76 year old male with prostate adenocarcinoma, 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,biopsy [place] score 4 + 3 = 7 (grade group 3), clinical stage IIB F8wK1G4,s/p TRUS-biopsyHPI: 76 year old male with prostate [...] with pathologydemonstrating adenocarcinoma from the right base [place] 7 (3+4) vkzorblyl70% of those cores as well as right lateral base, [place] 7 (4+3).Overall patient is fairly active without [...] 7 (grade group 3), clinical stage IIB Y0nN4P4, s/p TRUS-biopsyPatient has a localized but high risk adenocarcinoma prostate based onpalpable disease, PSA greater than 20 and [place] 7 (4+3). I would concurwith definitive treatment [...] is currently being scheduled.Signed by: Marylou Pagan, [facility]:Alpesh Dunn MD ([facility])[address] [place] [address]Embof: [phone]: [phone] Number: [id number] Status:Closed by Marylou PAGAN MD on 10/01/16 [facility] Vital Signs Date Time Vital Sign Value Performing Clinician Facility 02-09-2023 11:30-0500 Body height 170.18 cm Alpesh [facility] Other [facility] Other 02-09-2023 11:30-0500 Body mass index (BMI) [Ratio] 30.48 kg/m2 [facility] Other [facility] Other 02-09-2023 11:30-0500 Body weight 88.27 kg Alpesh [employer] Other [facility] Other 02-09-2023 11:30-0500 Diastolic blood pressure 74 mm[Hg] [facility] Other [facility] Other 02-09-2023 11:30-0500 Respiratory rate 16 /min Alpesh [employer] Other [facility] Other 02-09-2023 11:30-0500 Systolic blood pressure 136 mm[Hg] [facility] Other [facility] Other 02-02-2023 08:31-0500 Body temperature 97.8 [degF] DO Alpesh Ball Work Phone: [facility] 02-02-2023 08:31-0500 Diastolic blood pressure 71 mm[Hg] DO Alpesh Ball Work Phone: [facility] 02-02-2023 08:31-0500 Heart rate 81 /min DO Alpesh Ball Work Phone: [facility] 02-02-2023 08:31-0500 Respiratory rate 17 /min DO Alpesh Ball Work Phone: [facility] 02-02-2023 08:31-0500 SaO2% (BldA) [Mass fraction] 96 % DO Alpesh Ball Work Phone: [facility] 02-02-2023 08:31-0500 Systolic blood pressure 132 mm[Hg] DO Alpesh Ball Work Phone: [facility] 02-02-2023 06:54-0500 Body height 170.18 cm DO Alpesh Ball Work Phone: [facility] 01-30-2023 05:44-0500 Body weight 90.5 kg DO Alpesh Ball Work Phone: [facility] 01-20-2023 16:00-0500 Inhaled oxygen flow rate 2 L/min DO Alpesh Ball Work Phone: [facility] 12-24-2022 09:00-0500 Body height 170.18 cm Alpesh Ball Other [facility] Other 12-24-2022 09:00-0500 Body mass index (BMI) [Ratio] 31.13 kg/m2 Alpesh Ball Other [facility] Other 12-24-2022 09:00-0500 Body weight 90.18 kg Alpesh Ball Other [facility] Other 12-24-2022 09:00-0500 Diastolic blood pressure 87 mm[Hg] Alpesh Ball Other [facility] Other 12-24-2022 09:00-0500 Respiratory rate 16 /min Alpesh Ball Other [facility] Other 12-24-2022 09:00-0500 Systolic blood pressure 132 mm[Hg] Alpesh Ball Other [facility] Other 11-24-2022 14:30-0400 Body height 170.18 cm Alpesh Ball Other [facility] Other 11-24-2022 14:30-0400 Body mass index (BMI) [Ratio] 31.04 kg/m2 Alpesh Ball Other [facility] Other 11-24-2022 14:30-0400 Body weight 89.9 kg Alpesh Ball Other [facility] Other 11-24-2022 14:30-0400 Diastolic blood pressure 87 mm[Hg] Alpesh Ball Other [facility] Other 11-24-2022 14:30-0400 Respiratory rate 16 /min Alpesh Ball Other [facility] Other 11-24-2022 14:30-0400 SaO2% (BldA) [Mass fraction] 97 % Alpesh Ball Other [facility] Other 11-24-2022 14:30-0400 Systolic blood pressure 137 mm[Hg] Alpesh Ball Other [facility] Other 06-23-2022 14:30-0400 Body height 170.18 cm Alpesh Ball Other [facility] Other 06-23-2022 14:30-0400 Body mass index (BMI) [Ratio] 32.14 kg/m2 Alpesh Dunn Other [facility] Other 06-23-2022 14:30-0400 Body weight 93.08 kg Alpesh Dunn Other [facility] Other 06-23-2022 14:30-0400 Diastolic blood pressure 81 mm[Hg] Alpesh Dunn Other [facility] Other 06-23-2022 14:30-0400 Respiratory rate 16 /min Alpesh Dunn Other [facility] Other 06-23-2022 14:30-0400 Systolic blood pressure 126 mm[Hg] Alpesh Dunn Other [facility] Other Encounters Encounter Date Encounter Type Care Provider Facility Start: 01-30-2024 ambulatory Luis Nairi ty:[facility] Start: 08-15-2023 End: 08-15-2023 ambulatory Luis GARCIA Facility:[facility] Start: 08-02-2023 End: 08-02-2023 ambulatory [facility] Start: 06-27-2023 End: 06-27-2023 ambulatory Alpesh Shaun Other [facility] Other Start: 06-27-2023 Telephone encounter Alpesh Dunn [facility] Start: 05-24-2023 End: 10-16-2023 ambulatory MIA DOUGLAS [facility] Start: 05-19-2023 End: [facility] Start: 03-21-2023 End: 03-21-2023 ambulatory Luis GARCIA Facility:[facility] Start: 03-08-2023 End: 03-08-2023 ambulatory [facility]IAN A [facility] Start: 02-21-2023 End: 02-21-2023 ambulatory Luis GARCIA Facility:[facility] Start: 02-09-2023 End: 02-09-2023 ambulatory Alpesh Dunn Other [facility] Other Start: 02-09-2023 Transitional care johnny mercer srvc 14 day discharge Alpesh Dunn [facility] Start: 02-03-2023 End: 02-03-2023 ambulatory Alpesh Dunn Other [facility] Other Start: 02-03-2023 Telephone encounter Alpesh Dunn [facility] Start: 01-20-2023 End: 01-20-2023 ambulatory Alpseh Dunn Other [facility] Other Start: 01-20-2023 Telephone encounter Alpesh Dunn [facility] Start: 01-19-2023 End: 02-02-2023 Evaluation and management of inpatient Jackson Ballard Facility:[facility] Start: 01-19-2023 End: 02-02-2023 Evaluation and management of inpatient DO Alpesh Dunn Work Phone: [facility] Work Phone: Start: 01-17-2023 End: 01-17-2023 [facility]ulatory [facility] Start: 01-16-2023 End: 01-19-2023 Evaluation and management of inpatient PAMELA TOURE [facility] Start: 01-16-2023 End: 01-16-2023 Emergency department patient visit Juan Carlos Vines Facility:[facility] Start: 12-24-2022 End: 12-24-2022 ambulatory Alpesh Dunn Other [facility] Other Start: 12-24-2022 Office outpatient vi sit 25 minutes Alpesh Dunn [facility] Start: 12-22-2022 End: 12-22-2022 ambulatory Alpesh Dunn Other [facility] Other Start: 12-22-2022 Telephone encounter Alpesh BROOKE [facility] Start: 12-17-2022 End: 12-17-2022 Emergency department patient visit Yael Agrawal Facility:[facility] Start: 11-24-2022 End: 11-24-2022 ambulatory Alpesh Dunn Other [facility] Other Start: 11-24-2022 Office outpatient vi sit 25 minutes Alpesh Shaun [facility] Start: 11-24-2022 Telephone encounter Alpesh BROOKE [facility] Start: 07-22-2022 End: 07-22-2022 ambulatory Alpesh Dunn Other [facility] Other Start: 07-22-2022 Telephone encounter Alpesh BROOKE [facility] Start: 06-23-2022 End: 06-23-2022 ambulatory Alpesh Dunn Other [facility] Other Start: 06-23-2022 Patient encounter procedure Alpesh Dunn [facility] Start: 01-20-2022 End: 01-21-[address] LUIS GARCIA Facility:[facility] Start: 08-11-2021 End: 08-11-[address] ALPESH DUNN Facility:[facility] Start: 07-22-2021 End: 07-23-[address] LUIS GARCIA Facility:[facility] Start: 05-20-2021 End: 05-21-[address] ALPESH DUNN Facility:[facility] Start: 08-17-2017 End: 08-22-2017 Patient [facility] Start: 02-02-2017 End: 02-02-2017 Patient encounter Marylou [facility]AG[facility] Start: 01-19-2017 End: 02-09-2017 Patient encounter Marylou PAGAN [facility] Start: 01-05-2017 End: 01-05-2017 Patient encounter Marylou PAGAN [facility] Start: 12-23-2016 End: 12-24-2016 Patient encounter Marylou PAGAN [facility] Start: 12-07-2016 End: 12-10-2016 Patient encounter Marylou PAGAN [facility] Start: 11-19-2016 End: 11-24-2016 Patient encounter PATRICIA PAGAN [facility] Start: 11-18-2016 End: 11-19-2016 Patient encounter PATRICIA PAGAN [facility] Start: 11-17-2016 End: 11-19-2016 Patient encounter PATRICIA PAGAN [facility] Start: 11-16-2016 End: 11-18-2016 Patient encounter PATRICIA PAGAN [facility] Start: 11-15-2016 End: 11-15-2016 Patient encounter Marylou PAGAN [facility] Start: 11-12-2016 End: 11-17-2016 Patient encounter PATRICIA PAGAN [facility] Start: 11-11-2016 End: 11-11-2016 Patient encounter Marylou PAGAN [facility] Start: 11-11-2016 End: 11-12-2016 Patient encounter PATRICIA PAGAN [facility] Start: 11-10-2016 End: 11-15-2016 Patient encounter PATRICIA PAGAN [facility] Start: 11-09-2016 End: 11-10-2016 Patient encounter PATRICIA PAGAN [facility] Start: 11-08-2016 End: 11-08-2016 Patient encounter Marylou PAGAN [facility] Start: 11-05-2016 End: 11-08-2016 Patient encounter PATRICIA PAGAN [facility] Start: 11-04-2016 End: 11-09-2016 Patient encounter PATRICIA PAGAN [facility] Start: 11-03-2016 End: 11-05-2016 Patient encounter PATRICIA PAGAN [facility] Start: 11-02-2016 End: 11-03-2016 Patient encounter PATRICIA PAGAN [facility] Start: 11-01-2016 End: 11-01-2016 Patient encounter BOB ALEXA [facility] Start: 10-29-2016 End: 11-03-2016 Patient encounter PATRICIA PAGAN [facility] Start: 10-28-2016 End: 10-29-2016 Patient encounter PATRICIA PAGAN [facility] Start: 10-27-2016 End: 10-29-2016 Patient encounter PATRICIA PAGAN [facility] Start: 10-26-2016 End: 10-29-2016 Patient encounter NA LATASHA [facility] Start: 10-25-2016 End: 10-25-2016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 Wyatt , DO Other Provider Active Yuko Tavera MD Other Provider Active Patti Padilla , SOLUTIONS SPECIALIST Other Provider Active Esther Brambila , SOLUTIONS SPECIALIST Other Provider Active Katina Grimm MD Other Provider Active Anatoly Ortiz MD Other Provider Active Taryn Hope , SOLUTIONS SPECIALIST Other Provider Active Vlad Smalls , DO [...] BE BASED ON THE PRIMARY CLINICAL RECORDS. [facility] [employer] [facility]. provides no warranty or guarantee of the accuracy or completeness of information in this document.
[2023-11-29 11:31] LABS: Basophils Absolute Auto 0.1 10^3/uL (0.0-0.1); Basophils Percent Auto 0.5 % (0.2-2.0); Eosinophils Absolute Auto 0.2 10^3/uL (0.0-0.7); Hematocrit 40.8 % (42.0-54.0); Hemoglobin 13.6 g/dL (14.0-18.0); Immature Granulocytes Abs Auto 0.05 10^3/uL (0.00-0.03); Immature Granulocytes Pct Auto 0.5 % (0.0-0.5); Lymphocytes Absolute Auto 1.2 10^3/uL (1.2-3.8); Lymphocytes Percent Auto 10.8 % (20.5-60.0); Mean Corpuscular HGB Conc 33.3 g/dL (29.9-35.2); Mean Corpuscular Hemoglobin 30.8 pg (25.9-34.0); Mean Corpuscular Volume 92.3 fL (80.0-94.0); Mean Platelet Volume 11.3 fL (9.5-13.5); Monocytes Absolute Auto 0.9 10^3/uL (0.3-0.8); Monocytes Percent Auto 8.3 % (1.7-12.0); Neutrophils Absolute Auto 8.3 10^3/uL (1.4-6.5); Neutrophils Percent Auto 77.9 % (43.0-75.0); Platelet Count 264 10^3/uL (150-450); Red Blood Count 4.42 10^6/uL (4.70-6.10); Red Cell Distribution Width 13.3 % (11.0-15.0); White Blood Count 10.7 10^3/uL (4.0-11.0)
[2023-11-29 11:43] LABS: Estimated Average Glucose 126 mg/dL
[2023-11-29 12:06] LABS: Alanine Aminotransferase 9 U/L (16-63); Albumin Globulin Ratio 0.7; Alkaline Phosphatase 133 U/L (46-116); Anion Gap 14.7; Aspartate Amino Transferase 8 U/L (15-37); BUN Creatinine Ratio 27.1; Bilirubin Total 0.4 mg/dL (0.2-1.0); C Reactive Protein 0.67 mg/dL (<=0.50); Calcium 9.1 mg/dL (8.5-10.1); Carbon Dioxide 24.6 mmol/L (21.0-32.0); Chloride 105 mmol/L (98-107); Estimated GFR (African America >60 (>=60 mL/min/1.73m^2); Estimated GFR (Non-African Ame >60 (>=60 mL/min/1.73m^2); Globulin 4.2 g/dL; Glucose 160 mg/dL (74-106); Potassium 4.3 mmol/L (3.5-5.1); Sodium 140 mmol/L (136-145); Thyroid Stimulating Hormone 1.567 uIU/mL (0.358-3.740); Total Protein 7.2 g/dL (6.4-8.2)
== END 2023-11-29 11:07 | disposition home or self-care (01) ==
LOC: LAB 11:09
PROVIDERS: PCP Internal Medicine; Visit Provider Internal Medicine
DX: R19.7 Diarrhea, unspecified (principal); R63.4 Abnormal weight loss; R53.83 Other fatigue; R73.01 Impaired fasting glucose; I10 Essential (primary) hypertension
CPT/HCPCS: 36415; 80053; 83036; 84443; 85025; 86140

== ENCOUNTER 2023-12-07 13:39 | Outpatient (REF) | payer MEDICARE, SELFPAY ==
[2023-12-09 04:53] LABS: C. Difficile PCR NEGATIVE
== END 2023-12-07 13:40 | disposition home or self-care (01) ==
LOC: LAB 13:39
PROVIDERS: PCP Internal Medicine; Visit Provider Internal Medicine
DX: R19.7 Diarrhea, unspecified (principal); R63.4 Abnormal weight loss; R53.83 Other fatigue; R73.01 Impaired fasting glucose; I10 Essential (primary) hypertension
CPT/HCPCS: 87045; 87046; 87427; 87493

== ENCOUNTER 2023-12-23 12:33 | Outpatient (OUT) | payer MEDICARE, SELFPAY ==
--- OUTSIDE RECORDS SUMMARY | 2023-12-23 12:38 | XMS_ITS | CCD ---
Author Organization [facility] CliniSymd Care Team Providers Care Cae Engineer Name Role Phone ENGELER, G KEYSHAWN Unavailable [...] ENGELER, G KEYSHAWN Unavailable Unavailable CHINO MCGINNIS (CLERICAL OFFICE WORKER) Unavailable Unavailabl e ENGELER, G KEYSHAWN Unavailable Unavailable ENGELER, G KEYSHAWN Unavailable Unavailable ENGELER, G KEYSHAWN Unavailable Unavailable CHINO MCGINNIS (CLERICAL OFFICE WORKER) Unavailable Unavailabl e ENGELER, G KEYSHAWN Unavailable [...] Unavailable DO Alpesh Dunn Primary Care Provider [phone] MD Marc Mckinney Admit Provider MD Marc Mckinney Attending Provider [phone] LAQUITA Joshi Other Provider Unavailable LAQUITA Samuels Other Provider Unavailable LAQUITA Gonzalez Other Provider Unavailable LAQUITA Dawkins Other Provider Unavailable LAQUITA Rendon Other Provider Unavailable LAQUITA Leyva Other Provider Unavailable MD Yadiel Yanez Other Provider SONAM Gan Other Provider DO Jacquie Cox Other Provider MD Timi Mercado Other Provider DO Sherwin Cavanaugh Other Provider [phone] MD Daniel Carnes Other Provider [phone] MD Flower Hendrickson Other Provider SONAM Bui Other Provider MD Rosamaria Gregory Other Provider MD Ga Barnett Other Provider MD Mario Merino Other Provider MD Kaylie Brower Other Provider DO Dm Seo Other Provider MD Lenin Napier Other Provider MD Julian Maurice Other Provider KARYNA Liao Other Provider [phone] MD Yordan Bowen Other Provider MD Juan Espinoza Other Provider MD Joss Michelle Other Provider MD Nathaniel Luna Other Provider DO Acacia Palacio Other Provider DO Hayder Suazo Other Provider DO Shorty Espino Other Provider SONAM Yin Other Provider DO Fausto Wyatt Other Provider MD Yuko Tavera Other Provider SONAM Padilla Other Provider [phone] SONAM Brambila Other Provider MD Katina Grimm Other Provider MD Anatoly Ortiz Other Provider [phone] SONAM Hope Other Provider [phone] DO Slim Yayoni Other Provider LAQUITA Flood [...] 2023 8:10am take 1 capsule by mo 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; Translations: [[facility] CURRENT DRUG THERAPY] Onset: 07-23-2021 Episodic Other [...] Florian Sanchez DO 11/14/23 Final result Normal [facility] Ambulatory Visit Summaryon 0 08-15-2023 Ambulatory Visit [...] Follow-Up Appointments Tuesday 11:30 AM EDT Where: [facility] Physical Tx Tuesday 11:30 AM EDT Where: [facility] Physical Tx Tuesday 10:00 AM EDT Where: [facility] Physical Tx 2023 11:30 AM EDT Where: [facility] Physical Tx Tuesday 11:30 AM EDT Where: [facility] Physical Tx 2023 10:45 AM EDT Where: [facility] Physical Tx Tuesday 11:15 AM EDT Where: [facility] You Need to Schedule the Following Appointments Follow Up with JOSE LYNN, GLORIA Brooks When: Comments: 6 mos w/ PSA and Lupron Where: [facility] [address], [place] [address] [phone] Medications What How Much When Instructions Unchanged [...] body a (more content not included)... Normal Sergio [facility] Urology Office/Clinic Noteon 08-15-2023 Urology Office/Clinic [...] <0.13 08/12/23 - <0.13 TRUS/bx 08/24/16 - [place] 7 (4+3) x 1 core 9% of core involvement. [place] 7 (3+4) x 1 core, 35% of [...] [facility] [address], [place] [address] [phone] Additional Instructions: 6 mos w/ PSA and [...] total knee. M (more content not included)... [facility] Comment on above: Result Comment: Elec tronically [...] and would like to keep activity light. [facility] PT - Otheron 07-29-2023 PT - Other Pt called to inform PT that he is scheduled to see Dr Douglas next Tuesday for a consult for his continued right hip pain. [facility] Nonvisit Note - PTon 024 Nonvisit Note [...] monitor if this helps his pain reports. [facility] PT - Assessmentson 4 PT - Assessments [id number]#1.00TIFF [facility] PT - Assessmentson 4 PT - Assessments [id number]#1.00TIFF [facility] XR FEMUR RIGHT (MIN 2 VIEWS) on 06-08-2023 XR FEMUR RIGHT (MIN 2 VIEWS) Interpreted by: Mia Douglas, Preliminary result [facility] PT - [place] 06-03-2023 PT - Orders [id number]#1.00TIFF [facility] Consent for Treatmenton 05-09 Consent for Treatment [id number]#1.00TIFF [facility] PT - Assessmentson 4 PT - Assessments [id number]#1.00TIFF [facility] PT - Consentson 05-31-2023 PT - Consents [id number]#1.00TIFF [facility] PT - Home Exercise Programon 05-31-2023 PT - Home Exercise Program [id number]#1.00TIFF Normal [facility] PT - [place] 05-24-2023 PT - Orders [id number]#1.00TIFF Normal [facility] PT - Otheron 05-24-2023 PT - Other [id number]#1.00TIFF Normal [facility] PT - [place] 05-23-2023 PT - Orders [id number]#1.00TIFF [facility] Ambulatory Visit Summaryon 0 03-21-2023 Ambulatory Visit [...] Luis GARCIA MD Where: [facility] Ambulatory Visit Summaryon 0 02-21-2023 Ambulatory Visit Summary PARK GUIDRY :1940 Visit Date:02/21/2023 Ambulatory Visit Instructions Your Diagnosis Rising 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 The [place] [employer]: www.cancer.org ? [place] [employer]: www.auanet.org Contact a health care [...] adds flu (more content not included)... Normal [facility] Urology Office/Clinic Noteon 02-21-2023 Urology Office/Clinic [...] 1.07 01/12/23 - <0.13 TRUS/bx 08/24/16 - [place] 7 (4+3) x 1 core 9% of core involvement. [place] 7 (3+4) x 1 core, 35% of [...] [facility] [address], [place] [address]- [phone] Additional Instructions: 6 mos w/ Lupron and [...] cancer Procedure/Surgi (more content not included)... Normal [facility] Comment on above: Result Comment: Elec tronically Signed By: Luis GARCIA MD\.br\Date and Time Signed: 02/21/23 13:19 EST\.br\Electronically Co-Signed By: Sarah Beth Greene\.br\Date and Time Co-Signed: 02/21/23 13:18 EST Glucose Glucometer (BldC) [M ass/Vol]Ordered By: Marc Mckinney on 02-02-2023 Glucose [Mass/Vol] 115 mg/dL [facility] Comment on above: Random Glucose Refer ence Range is dependent on time and content of last meal. Glucose of more than 200 mg/dL in a nonstressed, ambulatory subject supports the diagnosis of Diabetes Mellitus. Glucose Poct Glucometerson 1 04-05-2022 Glucose [Mass/Vol] 115 mg/dL Normal [facility] Comment on above: Result Comment: [place] om Glucose Reference Range is dependent on time and content of last meal. Glucose of more than 200 mg/dL in a nonstressed, ambulatory subject supports the diagnosis of Diabetes Mellitus. PERFORMED BY: [facility] [place] [address] PATHOLOGIST [employer] COACH ATUL TRACY M.D. Performed By: #### G LULS #### Point of Care testing , Glucose Poct Glucometerson 1 04-04-2022 Glucose [Mass/Vol] 135 mg/dL Normal [facility] Comment on above: Result Comment: [place] Glucose Reference Range is dependent on time and content of last meal. Glucose of more than 200 mg/dL in a nonstressed, ambulatory subject supports the diagnosis of Diabetes Mellitus. PERFORMED BY: [address] [place] [address] PATHOLOGIST [employer] COACH ATUL TRACY M.D. Performed By: #### G LULS #### Point of Care testing , Glucose Poct Glucometerson 1 04-03-2022 Glucose [Mass/Vol] 109 mg/dL Normal [facility] Comment on above: Result Comment: [place] Glucose Reference Range is dependent on time and content of last meal. Glucose of more than 200 mg/dL in a nonstressed, ambulatory subject supports the diagnosis of Diabetes Mellitus. [address]FORMED BY: [address] [place] [id number] PATHOLOGIST [employer] COACH ATUL TRACY M.D. Performed By: #### G LULS #### Point of Care testing , Glucose Poct Glucometerson 1 04-02-2022 Glucose [Mass/Vol] 105 mg/dL Normal [facility] Comment on above: Result Comment: [place] om Glucose Reference Range is dependent on time and content of last meal. Glucose of more than 200 mg/dL in a nonstressed, ambulatory subject supports the diagnosis of Diabetes Mellitus. [address]FORMED BY: [address] [place] [id number] PATHOLOGIST [employer] COACH ATUL TRACY M.D. Performed By: #### G LULS #### Point of Care testing , Basic Metabolic Panelon 12-2 Anion gap [Moles/Vol] 13.9 mmol/L Normal 6.0-15.0 [facility] Comment on above: Performed By: #### G LULS #### Point of Care testing , Calcium [Mass/Vol] 8.5 mg/dL Low 8.6-10.3 [facility] Comment on above: Performed By: #### G LULS #### Point of Care testing , Chloride [Moles/Vol] 105 mmol/L Normal 98-107 [facility] Comment on above: Performed By: #### G LULS #### Point of Care testing , CO2 [Moles/Vol] 23.3 mmol/L Normal 21.0-31.0 [facility] Comment on above: Performed By: #### G LULS #### Point of Care testing , Creatinine [Mass/Vol] 0.71 mg/dL Normal 0.70-1.30 [facility] Comment on above: Performed By: #### G LULS #### Point of Care testing , Creatinine Clr Calc Pharmacy 73.17 [facility] Comment on above: Result Comment: PERF ORMED BY: [facility] [address] [place] [address] PATHOLOGIST [employer] COACH ATUL TRACY M.D. Performed By: #### G LULS #### Point of Care testing , GFR/1.73 sq M.predicted MDRD (S/P/Bld) [Vol rate/Area] mL/min/{1.73_m2} [facility] Comment on above: Performed By: #### G LULS #### Point of Care testing , Glucose [Mass/Vol] 102 mg/dL High 70-100 [facility] Comment on above: Result Comment: [place] Glucose Reference Range is dependent on time and content of last meal. Glucose of more than 200 mg/dL in a nonstressed, ambulatory subject supports the diagnosis of Diabetes Mellitus. ADA recommended reference range Performed By: #### G LULS #### Point of Care testing , Potassium [Moles/Vol] 4.2 mmol/L Normal 3.5-5.1 [facility] Comment on above: Performed By: #### G LULS #### Point of Care testing , Sodium [Moles/Vol] 138 mmol/L Normal 136-145 [facility] Comment on above: Performed By: #### G LULS #### Point of Care testing , Urea nitrogen [Mass/Vol] 22 mg/dL Normal 7-25 [facility] Comment on above: Performed By: #### G LULS #### Point of Care testing , Basophils Auto (Bld) [#/Vol] Ordered By: Ashlyn Donato on 01-29-2023 Basophils (Bld) [#/Vol] 0.1 10*3/uL 0.0-0.2 [facility] Basophils/100 WBC Auto (Bld) Ordered By: Ashlyn Donato on 01-29-2023 Basophils/100 WBC (Bld) 1.2 % . [facility] Calcium [Mass/volume] in Ser um or PlasmaOrdered By: Ashlyn Donato on 01-29-2023 Calcium [Mass/Vol] 8.5 mg/dL 8.6-10.3 [facility] Carbon dioxide, total [Moles /volume] in Serum or PlasmaOrdered By: Ashlyn Donato on 01-29-2023 CO2 [Moles/Vol] 23.3 mmol/L 21.0-31.0 [facility] Chloride [Moles/volume] in S edith or PlasmaOrdered By: Ashlyn Donato on 01-29-2023 Chloride [Moles/Vol] 105 mmol/L 98-107 [facility] Complete Blood Count Auto Di ffon 01-29-2023 Basophils (Bld) [#/Vol] 0.1 10*3/uL Normal 0.0-0.2 [facility] Comment on above: Result Comment: PERF ORMED BY: [facility] [address] [place] [address] PATHOLOGIST [employer] COACH ATUL TRACY M.D. Performed By: #### G LULS #### Point of Care testing , Basophils/100 WBC (Bld) 1.2 % Normal . [facility] Comment on above: Performed By: #### G LULS #### Point of Care testing , Eosinophils (Bld) [#/Vol] 0.4 10*3/uL Normal 0.0-0.45 [facility] Comment on above: Performed By: #### G LULS #### Point of Care testing , Eosinophils/100 WBC (Bld) 3.8 % Normal . [facility] Comment on above: Performed By: #### Marylou MCCORMACK #### Point of Care testing , Erythrocyte distribution width (RBC) [Ratio] 14.0 % Normal 12.0-14.8 [facility] Comment on above: Performed By: #### G DICKLS #### Point of Care testing , Hematocrit (Bld) [Volume fraction] 30.8 % Low 38.8-50.0 [facility] Comment on above: Performed By: #### G DICKLS #### Point of Care testing , Hemoglobin (Bld) [Mass/Vol] 10.2 g/dL Low 13.0-17.0 [facility] Comment on above: Performed By: #### G DICKLS #### Point of Care testing , Lymphocytes (Bld) [#/Vol] 1.0 10*3/uL Normal 1.00-4.8 [facility] Comment on above: Performed By: #### Marylou JENNINGSLS #### Point of Care testing , Lymphocytes/100 WBC (Bld) 9.9 % Normal . [facility] Comment on above: Performed By: #### Marylou JENNINGSLS #### Point of Care testing , MCH (RBC) [Entitic mass] 30.0 pg Normal 27.5-35.2 [facility] Comment on above: Performed By: #### G DICKLS #### Point of Care testing , MCV (RBC) [Entitic vol] 90.4 fL Normal 83.5-101 [facility] Comment on above: Performed By: #### G DICKLS #### Point of Care testing , Mean Corpuscular HGB Conc 33.2 g/dL Normal 32.5-35.6 [facility] Comment on above: Performed By: #### G DICKLS #### Point of Care testing , Monocytes (Bld) [#/Vol] 1.1 10*3/uL High 0.0-0.8 [facility] Comment on above: Performed By: #### G KSENIA #### Point of Care testing , Monocytes/100 WBC (Bld) 10.6 % Normal . [facility] Comment on above: Performed By: #### G LULS #### Point of Care testing , Neutrophils (Bld) [#/Vol] 7.7 10*3/uL Normal 1.8-7.7 [facility] Comment on above: Performed By: #### G DICKLS #### Point of Care testing , Neutrophils/100 WBC (Bld) 74.5 % Normal . [facility] Comment on above: Performed By: #### G LULS #### Point of Care testing , NRBC% 0.1 /100{WBC} Normal 0-0.5 [facility] Comment on above: Performed By: #### G DICKLS #### Point of Care testing , Platelet mean volume (Bld) [Entitic vol] 9.0 fL Normal 6.6-10.1 [facility] Comment on above: Performed By: #### G DICKLS #### Point of Care testing , Platelets (Bld) [#/Vol] 353 10*3/uL Normal 150-450 [facility] Comment on above: Performed By: #### G DICKLS #### Point of Care testing , RBC (Bld) [#/Vol] 3.41 10*6/uL Low 3.90-5.60 [facility] Comment on above: Performed By: #### G DICKLS #### Point of Care testing , WBC (Bld) [#/Vol] 10.3 10*3/uL Normal 4.1-10.5 [facility] Comment on above: Performed By: #### G LULS #### Point of Care testing , Creatinine [Mass/volume] in Serum or PlasmaOrdered By: Ashlyn Donato on 01-29-2023 Creatinine [Mass/Vol] 0.71 mg/dL 0.70-1.30 [facility] Eosinophils Auto (Bld) [#/Vo l]Ordered By: Ashlyn Donato on 01-29-2023 Eosinophils (Bld) [#/Vol] 0.4 10*3/uL 0.0-0.45 [facility] Eosinophils/100 WBC Auto (Bl d)Ordered By: Ashlyn Donato on 01-29-2023 Eosinophils/100 WBC (Bld) 3.8 % . [facility] Erythrocyte distribution wid th Auto (RBC) [Ratio]Ordered By: Ashlyn Donato on 01-29-2023 Erythrocyte distribution width (RBC) [Ratio] 14.0 % 12.0-14.8 [facility] Glucose Poct Glucometerson 1 04-01-2022 Glucose [Mass/Vol] 111 mg/dL Normal [facility] Comment on above: Result Comment: [place] Glucose Reference Range is dependent on time and content of last meal. Glucose of more than 200 mg/dL in a nonstressed, ambulatory subject supports the diagnosis of Diabetes Mellitus. PERFORMED BY: [facility] [address] [place] [address] PATHOLOGIST [employer]ACH ATUL TRACY M.D. Performed By: #### G LUKORIN #### Point of Care testing , Glucose [Mass/volume] in Ser um or PlasmaOrdered By: Ashlyn Donato on 01-29-2023 Glucose [Mass/Vol] 102 mg/dL 70-100 [facility] Comment on above: ADA recommended refe rence rangeRandom Glucose Reference Range is dependent on time and content of last meal. Glucose of more than 200 mg/dL in a nonstressed, ambulatory subject supports the diagnosis of Diabetes Mellitus. Hematocrit Auto (Bld) [Volum e fraction]Ordered By: Ashlyn Donato on 01-29-2023 Hematocrit (Bld) [Volume fraction] 30.8 % 38.8-50.0 [facility] Hemoglobin [Mass/volume] in BloodOrdered By: Ashlyn Donato on 01-29-2023 Hemoglobin (Bld) [Mass/Vol] 10.2 g/dL 13.0-17.0 [facility] Leukocytes [#/volume] correc portia for nucleated erythrocytes in Blood by Automated counOrdered By: Ashlyn Donato on 01-29-2023 WBC corrected for nucl RBC Auto (Bld) [#/Vol] 10.3 10*3/uL 4.1-10.5 [facility] Lymphocytes Auto (Bld) [#/Vo l]Ordered By: Ashlyn Donato on 01-29-2023 Lymphocytes (Bld) [#/Vol] 1.0 10*3/uL 1.00-4.8 [facility] Lymphocytes/100 WBC Auto (Bl d)Ordered By: Ashlyn Donato on 01-29-2023 Lymphocytes/100 WBC (Bld) 9.9 % . [facility] MCH Auto (RBC) [Entitic mass ]Ordered By: Ashlyn Donato on 01-29-2023 MCH (RBC) [Entitic mass] 30.0 pg 27.5-35.2 [facility] MCHC Auto (RBC) [Mass/Vol]Or dered By: Ashlyn Donato on 01-29-2023 MCHC (RBC) [Mass/Vol] 33.2 g/dL 32.5-35.6 [facility] MCV Auto (RBC) [Entitic vol] Ordered By: Ashlyn Donato on 01-29-2023 MCV (RBC) [Entitic vol] 90.4 fL 83.5-101 [facility] Monocytes Auto (Bld) [#/Vol] Ordered By: Ashlyn Donato on 01-29-2023 Monocytes (Bld) [#/Vol] 1.1 10*3/uL 0.0-0.8 [facility] Monocytes/100 WBC Auto (Bld) Ordered By: Ashlyn Donato on 01-29-2023 Monocytes/100 WBC (Bld) 10.6 % . [facility] Neutrophils Auto (Bld) [#/Vo l]Ordered By: Ashlyn Donato on 01-29-2023 Neutrophils (Bld) [#/Vol] 7.7 10*3/uL 1.8-7.7 [facility] Neutrophils/100 WBC Auto (Bl d)Ordered By: Ashlyn Donato on 01-29-2023 Neutrophils/100 WBC (Bld) 74.5 % . [facility] No Panel InformationOrdered By: Ashlyn Donato on 01-29-2023 Estimated GFR (CKD-EPI) > 60.0 mL/Min [facility] Creatinine Clearance (Chem 73.17 [facility] Nucleated erythrocytes [Pres ence] in Blood by Automated countOrdered By: Ashlyn Donato on 01-29-2023 Nucleated RBC Auto Ql (Bld) 0.1 /100{WBC} 0-0.5 [facility] Platelet mean volume Auto (B ld) [Entitic vol]Ordered By: Ashlyn Donato on 01-29-2023 Platelet mean volume (Bld) [Entitic vol] 9.0 fL 6.6-10.1 [facility] Platelets Auto (Bld) [#/Vol] Ordered By: Ashlyn Donato on 01-29-2023 Platelets (Bld) [#/Vol] 353 10*3/uL 150-450 [facility] Potassium [Moles/volume] in Serum or PlasmaOrdered By: Ashlyn Donato on 01-29-2023 Potassium [Moles/Vol] 4.2 mmol/L 3.5-5.1 [facility] RBC Auto (Bld) [#/Vol]Ordere d By: Ashlyn Donato on 01-29-2023 RBC (Bld) [#/Vol] 3.41 10*6/uL 3.90-5.60 [facility] Serum or plasma anion gap de terminationOrdered By: Ashlyn Donato on 01-29-2023 Anion gap [Moles/Vol] 13.9 mmol/L 6.0-15.0 [facility] Sodium [Moles/volume] in Ser um or PlasmaOrdered By: Ashlyn Donato on 01-29-2023 Sodium [Moles/Vol] 138 mmol/L 136-145 [facility] Urea nitrogen [Mass/volume] in Serum or PlasmaOrdered By: Ashlyn Donato on 01-29-2023 Urea nitrogen [Mass/Vol] 22 mg/dL 7-25 [facility] WBC Auto (Bld) [#/Vol]Ordere d By: Ashlyn Donato on 01-29-2023 WBC (Bld) [#/Vol] 10.3 10*3/uL 4.1-10.5 [facility] Glucose Poct Glucometerson 1 03-31-2022 Glucose [Mass/Vol] 114 mg/dL Normal [facility] Comment on above: Result Comment: [facility] Glucose Reference Range is dependent on time and content of last meal. Glucose of more than 200 mg/dL in a nonstressed, ambulatory subject supports the diagnosis of Diabetes Mellitus. PERFORMED BY: [place] [address] PATHOLOGIST [employer] COACH ATUL TRACY M.D. Performed By: #### G KSENIA #### Point of Care testing , Retail - Clinical Noteon Retail - Clinical Note [id number]#1.00TIFF Normal [facility] Glucose Poct Glucometerson 1 03-30-2022 Glucose [Mass/Vol] 101 mg/dL Normal [facility] Comment on above: Result Comment: [facility] Glucose Reference Range is dependent on time and content of last meal. Glucose of more than 200 mg/dL in a nonstressed, ambulatory subject supports the diagnosis of Diabetes Mellitus. PERFORMED BY: [place] [id number] PATHOLOGIST [employer] COACH ATUL TRACY M.D. Performed By: #### G KSENIA #### Point of Care testing , CT head/brain wo conon 01-26 CT head/brain wo [facility] [address] [address] [address] Scan Report Signed Patient: Park Guidry MR#: [id number] : 1940 Acct:[id number] Age/Sex: 82 / M ADM Date: 01/19/23 Loc: Room: 7F7835-8 Type: ADM IN Attending Dr: Marc Mckinney [...] La Fuente M.D.01/26/2023 7:21 AM Dictation Location: [place] [address] Transcribed By: GRISELDA 01/26/23720 Dictated By: Akiko De La Fuente MD 01/26/23716 Signed By: 01/26/23720 Normal [facility] Glucose Poct Glucometerson 1 03-29-2022 Glucose [Mass/Vol] 122 mg/dL Normal [facility] Comment on above: Result Comment: [place] Glucose Reference Range is dependent on time and content of last meal. Glucose of more than 200 mg/dL in a nonstressed, ambulatory subject supports the diagnosis of Diabetes Mellitus. PERFORMED BY: [place] [address] PATHOLOGIST [employer] COACH ATUL TRACY M.D. Performed By: #### G KSENIA #### Point of Care testing , A1C with Estimated Average [facility] 01-25-2023 Glucose [Mass/Vol] 134 mg/dL Normal [facility] Comment on above: Result Comment: PERF ORMED BY: [place] [address] PATHOLOGIST [employer] COACH ATUL TRACY M.D. Performed By: #### A 1C [facility] #### [address] HbA1c (Bld) [Mass fraction] 6.3 % High 4.3-5.6 [facility] Comment on above: Result Comment: Incr eased risk for diabetes: 5.7 - 6.4 diabetes: >6.4 glycemic control for adults with diabetes: <7.0 Performed By: #### A 1C [facility] eA #### [facility] [address] Basic Metabolic Panelon 12- Anion gap [Moles/Vol] 10.1 mmol/L Normal 6.0-15.0 [facility] Comment on above: Performed By: #### C BC, BMP #### [facility] [address] Calcium [Mass/Vol] 8.5 mg/dL Low 8.6-10.3 [facility] Comment on above: Performed By: #### C BC, BMP #### [address] Chloride [Moles/Vol] 105 mmol/L Normal 98-107 [facility] Comment on above: Performed By: #### C BC, BMP #### [address] CO2 [Moles/Vol] 27.0 mmol/L Normal 21.0-31.0 [facility] Comment on above: Performed By: #### C BC, BMP #### [address] Creatinine [Mass/Vol] 0.81 mg/dL Normal 0.70-1.30 [facility] Comment on above: Performed By: #### C BC, BMP #### [place] [address] [place] Creatinine Clr Calc Pharmacy 72.27 Normal [facility] Comment on above: Result Comment: PERF ORMED BY: [place] [address] PATHOLOGIST [employer] COACH ATUL TRACY M.D. Performed By: #### C BC, BMP #### [place] [address] [place] GFR/1.73 sq M.predicted MDRD (S/P/Bld) [Vol rate/Area] mL/min/{1.73_m2} Normal [facility] Comment on above: Performed By: #### C BC, BMP #### [facility] [address] Glucose [Mass/Vol] 130 mg/dL High 70-100 [facility] Comment on above: Result Comment: [place] Glucose Reference Range is dependent on time and content of last meal. Glucose of more than 200 mg/dL in a nonstressed, ambulatory subject supports the diagnosis of Diabetes Mellitus. ADA recommended reference range Performed By: #### C BC, BMP #### [facility] [address] Potassium [Moles/Vol] 4.1 mmol/L Normal 3.5-5.1 [facility] Comment on above: Performed By: #### C BC, BMP #### [place] [address] [place] Sodium [Moles/Vol] 138 mmol/L Normal 136-145 [facility] Comment on above: Performed By: #### C BC, BMP #### [place] [address] [place] Urea nitrogen [Mass/Vol] 23 mg/dL Normal 7-25 [facility] Comment on above: Performed By: #### C BC, BMP #### [address] Complete Blood Count Auto Di ffon 01-25-2023 Basophils (Bld) [#/Vol] 0.1 10*3/uL Normal 0.0-0.2 [facility] Comment on above: Result Comment: PERF ORMED BY: [place] [address] PATHOLOGIST [employer] COACH ATUL TRACY M.D. Performed By: #### C BC, BMP #### [place] [address] [place] Basophils/100 WBC (Bld) 1.1 % Normal . [facility] Comment on above: Performed By: #### C BC, BMP #### [facility] [address] Eosinophils (Bld) [#/Vol] 0.4 10*3/uL Normal 0.0-0.45 [facility] Comment on above: Performed By: #### C BC, BMP #### [facility] [address] Eosinophils/100 WBC (Bld) 4.3 % Normal . [facility] Comment on above: Performed By: #### C BC, BMP #### [address] Erythrocyte distribution width (RBC) [Ratio] 13.5 % Normal 12.0-14.8 [facility] Comment on above: Performed By: #### C BC, BMP #### [address] Hematocrit (Bld) [Volume fraction] 29.7 % Low 38.8-50.0 [facility] Comment on above: Performed By: #### C BC, BMP #### [address] Hemoglobin (Bld) [Mass/Vol] 10.0 g/dL Low 13.0-17.0 [facility] Comment on above: Performed By: #### C BC, BMP #### [address] Lymphocytes (Bld) [#/Vol] 0.9 10*3/uL Low 1.00-4.8 [facility] Comment on above: Performed By: #### C BC, BMP #### [address] Lymphocytes/100 WBC (Bld) 8.2 % Normal . [facility] Comment on above: Performed By: #### C BC, BMP #### [address] MCH (RBC) [Entitic mass] 30.2 pg Normal 27.5-35.2 [facility] Comment on above: Performed By: #### C BC, BMP #### [place] [address] [place] MCV (RBC) [Entitic vol] 89.9 fL Normal 83.5-101 [facility] Comment on above: Performed By: #### C BC, BMP #### [address] Mean Corpuscular HGB Conc 33.6 g/dL Normal 32.5-35.6 [facility] Comment on above: Performed By: #### C BC, BMP #### [address] Monocytes (Bld) [#/Vol] 0.9 10*3/uL High 0.0-0.8 [facility] Comment on above: Performed By: #### C YAKOV, BMP #### [address] Monocytes/100 WBC (Bld) 8.5 % Normal . [facility] Comment on above: Performed By: #### C YAKOV, BMP #### [address] Neutrophils (Bld) [#/Vol] 8.1 10*3/uL High 1.8-7.7 [facility] Comment on above: Performed By: #### C YAKOV, BMP #### [address] Neutrophils/100 WBC (Bld) 77.9 % Normal . [facility] Comment on above: Performed By: #### C YAKOV, BMP #### [address] NRBC% 0.1 /100{WBC} Normal 0-0.5 [facility] Comment on above: Performed By: #### C BC, BMP #### [address] Platelet mean volume (Bld) [Entitic vol] 9.2 fL Normal 6.6-10.1 [facility] Comment on above: Performed By: #### C BC, BMP #### [address] Platelets (Bld) [#/Vol] 298 10*3/uL Normal 150-450 [facility] Comment on above: Performed By: #### C YAKOV, LEROY #### [facility] [address] [place] [address] [place] RBC (Bld) [#/Vol] 3.30 10*6/uL Low 3.90-5.60 [facility] Comment on above: Performed By: #### C YAKOV, BMP #### [address] WBC (Bld) [#/Vol] 10.4 10*3/uL Normal 4.1-10.5 [facility] Comment on above: Performed By: #### C YAKOV, BMP #### [address] Glucose mean value [Mass/vol ume] in Blood Estimated from glycated hemoglobinOrdered By: Ashlyn Donato on 01-25-2023 Average glucose Estimated from glycated hemoglobin (Bld) [Mass/Vol] 134 mg/dL [facility] Hemoglobin A1c percentageOrd ered By: Ashlyn Donato on 01-25-2023 HbA1c (Bld) [Mass fraction] 6.3 % 4.3-5.6 [facility] Comment on above: Increased risk for d iabetes: 5.7 - 6.4diabetes: >6.4glycemic control for adults with diabetes: <7.0 XR ribs RT 2Von 01-21-2023 XR ribs RT 2V [facility] [place] [address] [place] [address] XRay Report Signed Patient: Park Guidry MR#: [id number] : 1940 Acct:[id number] Age/Sex: 82 / M ADM Date: 01/19/23 Loc: Room: 6B0622-3 Type: ADM IN Attending Dr: Marc Mckinney [...] Alonso Willis M.D.01/21/2023 4:33 PM Dictation Location: [place] [address] Transcribed By: GRISELDA 01/21/23 1633 Dictated By: Alonso Willis II, MD 01/21/23 1631 Signed By: 01/21/23 1633 Normal [facility] Alanine aminotransferase [En zymatic activity/volume] in Serum or PlasmaOrdered By: Marc Mckinney on 01-20-2023 ALT [Catalytic activity/Vol] 4 U/L 7-52 [facility] Albumin [Mass/volume] in Ser um or Plasma by Bromocresol green (BCG) dye binding methoOrdered By: Marc Mckinney on 01-20-2023 Albumin BCG dye [Mass/Vol] 3.0 g/dL 3.5-5.7 [facility] Alkaline phosphatase [Enzyma tic activity/volume] in Serum or PlasmaOrdered By: Marc Mckinney on 01-20-2023 ALP [Catalytic activity/Vol] 64 U/L 34-104 [facility] Aspartate aminotransferase [ Enzymatic activity/volume] in Serum or PlasmaOrdered By: Marc Mckinney on 01-20-2023 AST [Catalytic activity/Vol] 12 U/L 13-39 [facility] Bilirubin.total [Mass/volume ] in Serum or PlasmaOrdered By: Marc Mckinney on 01-20-2023 Bilirubin [Mass/Vol] 0.8 mg/dL 0.3-1.0 [facility] Complete Blood Count Auto Di ffon 01-20-2023 Basophils (Bld) [#/Vol] 0.1 10*3/uL Normal 0.0-0.2 [facility] Comment on above: Result Comment: PERF ORMED BY: [place] [address] PATHOLOGIST [employer] COACH ATUL TRACY M.D. Performed By: #### C BC, CMP, PAB #### [place] [address] [place] Basophils/100 WBC (Bld) 0.5 % Normal . [facility] Comment on above: Performed By: #### C BC, CMP, PAB #### [place] [address] [place] Eosinophils (Bld) [#/Vol] 0.2 10*3/uL Normal 0.0-0.45 [facility] Comment on above: Performed By: #### C BC, CMP, PAB #### [place] [address] [place] Eosinophils/100 WBC (Bld) 1.8 % Normal . [facility] Comment on above: Performed By: #### C BC, CMP, PAB #### [place] [address] [place] Erythrocyte distribution width (RBC) [Ratio] 13.6 % Normal 12.0-14.8 [facility] Comment on above: Performed By: #### C BC, CMP, PAB #### [place] [address] [place] Hematocrit (Bld) [Volume fraction] 30.9 % Low 38.8-50.0 [facility] Comment on above: Performed By: #### C BC, CMP, PAB #### [place] [address] [place] Hemoglobin (Bld) [Mass/Vol] 10.4 g/dL Low 13.0-17.0 [facility] Comment on above: Performed By: #### C BC, CMP, PAB #### [place] [address] [place] Lymphocytes (Bld) [#/Vol] 0.8 10*3/uL Low 1.00-4.8 [facility] Comment on above: Performed By: #### C BC CMP, PAB #### [address] Lymphocytes/100 WBC (Bld) 7.0 % Normal . [facility] Comment on above: Performed By: #### C BC CMP, PAB #### [address] MCH (RBC) [Entitic mass] 30.0 pg Normal 27.5-35.2 [facility] Comment on above: Performed By: #### C YAKOV CMP, PAB #### [address] MCV (RBC) [Entitic vol] 89.2 fL Normal 83.5-101 [facility] Comment on above: Performed By: #### C BC CMP, PAB #### [address] Mean Corpuscular HGB Conc 33.7 g/dL Normal 32.5-35.6 [facility] Comment on above: Performed By: #### C YAKOV CMP, PAB #### [address] Monocytes (Bld) [#/Vol] 1.1 10*3/uL High 0.0-0.8 [facility] Comment on above: Performed By: #### C BC, CMP, PAB #### [address] Monocytes/100 WBC (Bld) 9.9 % Normal . [facility] Comment on above: Performed By: #### C BC CMP, PAB #### [address] Neutrophils (Bld) [#/Vol] 8.7 10*3/uL High 1.8-7.7 [facility] Comment on above: Performed By: #### C BC, CMP, PAB #### [place] [id number] [place] Neutrophils/100 WBC (Bld) 80.8 % Normal . [facility] Comment on above: Performed By: #### C BC, CMP, PAB #### [address] NRBC% 0.1 /100{WBC} Normal 0-0.5 [facility] Comment on above: Performed By: #### C BC, CMP, PAB #### [address] Platelet mean volume (Bld) [Entitic vol] 10.5 fL High 6.6-10.1 [facility] Comment on above: Performed By: #### C BC, CMP, PAB #### [address] Platelets (Bld) [#/Vol] 169 10*3/uL Normal 150-450 [facility] Comment on above: Performed By: #### C BC, CMP, PAB #### [address] RBC (Bld) [#/Vol] 3.47 10*6/uL Low 3.90-5.60 [facility] Comment on above: Performed By: #### C BC, CMP, PAB #### [address] WBC (Bld) [#/Vol] 10.8 10*3/uL High 4.1-10.5 [facility] Comment on above: Performed By: #### C BC, CMP, PAB #### [address] Comprehensive Metabolic Pane thuy 01-20-2023 Albumin [Mass/Vol] 3.0 g/dL Low 3.5-5.7 [facility] Comment on above: Performed By: #### C BC, CMP, PAB #### [address] Albumin/Globulin [Mass ratio] 1.0 {ratio} Normal [facility] Comment on above: Performed By: #### C BC, CMP, PAB #### [facility] [address] ALP [Catalytic activity/Vol] 64 U/L Normal 34-104 [facility] Comment on above: Performed By: #### C BC, CMP, PAB #### [facility] [address] ALT [Catalytic activity/Vol] 4 U/L Low 7-52 [facility] Comment on above: Performed By: #### C BC, CMP, PAB #### [facility] [address] Anion gap [Moles/Vol] 11.4 mmol/L Normal 6.0-15.0 [facility] Comment on above: Performed By: #### C BC, CMP, PAB #### [facility] [address] AST [Catalytic activity/Vol] 12 U/L Low 13-39 [facility] Comment on above: Performed By: #### C BC, CMP, PAB #### [facility] [address] Bilirubin [Mass/Vol] 0.8 mg/dL Normal 0.3-1.0 [facility] Comment on above: Performed By: #### C BC, CMP, PAB #### [facility] [address] Calcium [Mass/Vol] 8.5 mg/dL Low 8.6-10.3 [facility] Comment on above: Performed By: #### C BC, CMP, PAB #### [facility] [address] [place] [address] [place] Chloride [Moles/Vol] 103 mmol/L Normal 98-107 [facility] Comment on above: Performed By: #### C BC, CMP, PAB #### [facility] [address] [place] [address] [place] CO2 [Moles/Vol] 24.4 mmol/L Normal 21.0-31.0 [facility] Comment on above: Performed By: #### C BC, CMP, PAB #### [facility] [address] Creatinine [Mass/Vol] 0.68 mg/dL Low 0.70-1.30 [facility] Comment on above: Performed By: #### C INES NAGY, PAB #### [facility] [address] [place] [address] [place] Creatinine Clr Calc Pharmacy 121.00 [facility] Comment on above: Performed By: #### C INES NAGY, PAB #### [facility] [address] [place] [address] [place] GFR/1.73 sq M.predicted MDRD (S/P/Bld) [Vol rate/Area] mL/min/{1.73_m2} [facility] Comment on above: Performed By: #### C INES NAGY, PAB #### [facility] [address] Globulin (S) [Mass/Vol] 2.9 g/dL [facility] Comment on above: Performed By: #### C INES NAGY, PAB #### [facility] [address] Glucose [Mass/Vol] 130 mg/dL High 70-100 [facility] Comment on above: Result Comment: [place] Glucose Reference Range is dependent on time and content of last meal. Glucose of more than 200 mg/dL in a nonstressed, ambulatory subject supports the diagnosis of Diabetes Mellitus. ADA recommended reference range Performed By: #### C INES NAGY, PAB #### [facility] [address] [place] [address] [place] Potassium [Moles/Vol] 3.8 mmol/L Normal 3.5-5.1 [facility] Comment on above: Performed By: #### C INES NAGY, PAB #### [facility] [address] Protein [Mass/Vol] 5.9 g/dL Low 6.4-8.9 [facility] Comment on above: Performed By: #### C INES NAGY, PAB #### [facility] [address] [place] [address] Sodium [Moles/Vol] 135 mmol/L Low 136-145 [facility] Comment on above: Performed By: #### C YAKOV, INES, PAB #### [address] Urea nitrogen [Mass/Vol] 16 mg/dL Normal 7-25 [facility] Comment on above: Performed By: #### C BC, CMP, PAB #### [address] Globulin Calc (S) [Mass/Vol] Ordered By: Marc Mckinney on 01-20-2023 Globulin (S) [Mass/Vol] 2.9 g/dL [facility] Prealbuminon 01-20-2023 Prealbumin [Mass/Vol] 8.4 mg/dL Low 17.0-34.0 [facility] Comment on above: Result Comment: PERF ORMED BY: [place] [address] PATHOLOGIST [employer] CO[employer] ATUL TRACY M.D. Performed By: #### C YAKOV, INES, PAB #### [address] Prealbumin [Mass/volume] in Serum or PlasmaOrdered By: Marc Mckinney on 01-20-2023 Prealbumin [Mass/Vol] 8.4 mg/dL 17.0-34.0 [facility] Protein [Mass/volume] in Ser um or PlasmaOrdered By: Marc Mckinney on 01-20-2023 Protein [Mass/Vol] 5.9 g/dL 6.4-8.9 [facility] Serum or plasma albumin/glob ulin mass ratioOrdered By: Marc Mckinney on 01-20-2023 Albumin/Globulin [Mass ratio] 1.0 {ratio} [facility] B12/Folate Panelon 3 Cobalamin (Vitamin B12) [Mass/Vol] 296 pg/mL Normal 232-1245 [facility] Comment on above: Performed By: #### B 12FOL #### [facility] [address] [place] [address] Purification Operator Helper: Paul Hodge MD Folic Acid 5.2 ng/mL Normal >4.8 [facility] Comment on above: Performed By: #### B 12FOL #### [facility] [address] [place] [id number] Purification Operator Helper: Paul Hodge MD Basic Metabolic Profon 01-19 Anion gap [Moles/Vol] 7 mmol/L Low 9-17 [facility] Comment on above: Performed By: #### B MP, CDP #### [facility] [address] [place] [address] Purification Operator Helper: Paul Hodge MD Calcium [Mass/Vol] 8.5 mg/dL Low 8.6-10.4 [facility] Comment on above: Performed By: #### B MP, CDP #### [facility] [address] [place] [address] Purification Operator Helper: Paul Hodge MD Chloride [Moles/Vol] 101 mmol/L Normal 98-107 [facility] Comment on above: Performed By: #### B MP, CDP #### [facility] [address] [place] [address] Purification Operator Helper: Paul Hodge MD CO2 [Moles/Vol] 26 mmol/L Normal 20-31 [facility] Comment on above: Performed By: #### B MP, CDP #### [facility] [address] [place] [address] Purification Operator Helper: Paul Hodge MD Creatinine [Mass/Vol] 0.7 mg/dL Normal 0.7-1.2 [facility] Comment on above: Performed By: #### B MP, CDP #### [facility] [address] [place] [address] Purification Operator Helper: Paul Hodge MD GFR/1.73 sq M.predicted among non-blacks MDRD (S/P/Bld) [Vol rate/Area] mL/min/{1.73_m2} Normal >60 [facility] Comment on above: Result Comment: These results [...] Performed By: #### B JUSTINA, CDP #### [facility] [employer] [address] [place] [id number] Purification Operator Helper: Paul Hodge MD Glucose [Mass/Vol] 124 mg/dL High 70-99 [facility] Comment on above: Performed By: #### B JUSTINA, CDP #### [facility] [employer] [address] [place] [address] Purification Operator Helper: Paul Hodge MD Potassium [Moles/Vol] 4.4 mmol/L Normal 3.7-5.3 [facility] Comment on above: Performed By: #### B JUSTINA, CDP #### [facility] [employer] [address] [place] [address] Purification Operator Helper: Paul Hodge MD Sodium [Moles/Vol] 134 mmol/L Low 135-144 [facility] Comment on above: Performed By: #### B JUSTINA, CDP #### [facility] [employer] [address] [place] [address] Purification Operator Helper: Paul Hodge MD Urea nitrogen [Mass/Vol] 20 mg/dL Normal 8-23 [facility] Comment on above: Performed By: #### B JUSTINA, CDP #### [facility] [employer] [address] [place] [phone] Purification Operator Helper: Paul Hodge MD CBC with Diffon 01-19-2023 Abs. Basophil 0.11 k/uL Normal 0.0-0.2 [facility] Comment on above: Performed By: #### B MP, CDP #### [facility] [address] [place] [address] Purification Operator Helper: Paul Hodge MD Abs.Imm.Granulocyte 0.11 k/uL Normal 0.00-0.30 [facility] Comment on above: Performed By: #### B MP, CDP #### [facility] [address] [place] [address] Purification Operator Helper: Paul Hodge MD Abs.Neutrophil (Seg) 8.34 k/uL High 1.8-7.7 [facility] Comment on above: Performed By: #### B JUSTINA, CDP #### [facility] [address] [place] [address] Purification Operator Helper: Paul Hodge MD Basophils/100 WBC (Bld) 1 % Normal 0-2 [facility] Comment on above: Performed By: #### B JUSTINA, CDP #### [facility] [employer] [address] [place] [phone] Purification Operator Helper: Paul Hodge MD Eosinophils (Bld) [#/Vol] 0.43 10*3/uL High 0.0-0.4 [facility] Comment on above: Performed By: #### B JUSTINA, CDP #### [facility] [employer] [address] [place] [address] Purification Operator Helper: Paul Hodge MD Eosinophils/100 WBC (Bld) 4 % Normal 1-4 [facility] Comment on above: Performed By: #### B MP, CDP #### [facility] [address] [place] [address] Purification Operator Helper: Paul Hodge MD Immature granulocytes/100 WBC (Bld) 1 % High 0 [facility] Comment on above: Performed By: #### B MP, CDP #### [employer] [facility] [place] [address] Purification Operator Helper: Paul Hodge MD Lymphocytes (Bld) [#/Vol] 0.64 10*3/uL Low 1.0-4.8 [facility] Comment on above: Performed By: #### B MP, CDP #### [facility] [address] [place] [address] Purification Operator Helper: Paul Hodge MD Lymphocytes/100 WBC (Bld) 6 % Low 24-44 [facility] Comment on above: Performed By: #### B MP, CDP #### [facility] [address] [place] [address] Purification Operator Helper: Paul Hodge MD Monocytes (Bld) [#/Vol] 1.07 10*3/uL High 0.1-0.8 [facility] Comment on above: Performed By: #### B MP, CDP #### [facility] [address] [place] [address] Purification Operator Helper: Paul Hodge MD Monocytes/100 WBC (Bld) 10 % High 1-7 [facility] Comment on above: Performed By: #### B MP, CDP #### [facility] [address] [place] [address] Purification Operator Helper: Paul Hodge MD Morphology Balta (Bld) [Interp] Normal Normal [facility] Comment on above: Performed By: #### B MP, CDP #### [facility] [address] [place] [address] Purification Operator Helper: Paul Hodge MD Neutrophil (Seg) 78 % High 36-66 [facility] Comment on above: Performed By: #### B MP, CDP #### [facility] [address] [place] [phone] Purification Operator Helper: Paul Hodge MD Erythrocyte distribution width (RBC) [Ratio] 13.5 % Normal 11.8-14.4 [facility] Comment on above: Performed By: #### B MP, CDP #### [address] [address] Purification Operator Helper: Paul Hodge MD Hematocrit (Bld) [Volume fraction] 33.1 % Low 40.7-50.3 [facility] Comment on above: Performed By: #### B MP, CDP #### [address] [address] Purification Operator Helper: Paul Hodge MD Hemoglobin (Bld) [Mass/Vol] 10.9 g/dL Low 13.0-17.0 [facility] Comment on above: Performed By: #### B JUSTINA, CDP #### [address] [address] Purification Operator Helper: Paul Hodge MD MCH (RBC) [Entitic mass] 30.4 pg Normal 25.2-33.5 [facility] Comment on above: Performed By: #### B JUSTINA, CDP #### [address] [address] Purification Operator Helper: Paul Hodge MD MCHC (RBC) [Mass/Vol] 32.9 g/dL Normal 28.4-34.8 [facility] Comment on above: Performed By: #### B JUSTINA, CDP #### [address] [address] Purification Operator Helper: Paul Hodge MD MCV (RBC) [Entitic vol] 92.5 fL Normal 82.6-102.9 [facility] Comment on above: Performed By: #### B MP, CDP #### [address] [address] Purification Operator Helper: Paul Hodge MD NRBC Automated 0.0 per 100 WBC Normal 0.0 [facility] Comment on above: Performed By: #### B MP, CDP #### [facility] [address] [place] [address] Purification Operator Helper: Paul Hodge MD Platelet mean volume (Bld) [Entitic vol] 12.1 fL Normal 8.1-13.5 [facility] Comment on above: Performed By: #### B MP, CDP #### [facility] [employer] [address] [place] [address] [id number] Purification Operator Helper: Paul Hodge MD Platelets (Bld) [#/Vol] 153 10*3/uL Normal 138-453 [facility] Comment on above: Performed By: #### B MP, CDP #### [facility] [employer] [address] [place] [phone] Purification Operator Helper: Paul Hodge MD RBC (Bld) [#/Vol] 3.58 10*6/uL Low 4.21-5.77 [facility] Comment on above: Performed By: #### B MP, CDP #### [facility] [employer] [address] [place] [phone] Purification Operator Helper: Paul Hodge MD WBC (Bld) [#/Vol] 10.7 10*3/uL Normal 3.5-11.3 [facility] Comment on above: Performed By: #### B MP, CDP #### [facility] [employer] [address] [place] [phone] Purification Operator Helper: Paul Hodge MD Vitamin D 25 OHon 01-19-2023 Vitamin D 25 OH 19.3 ng/mL Low 30.0-100.0 [facility] Comment on above: Result Comment: Reference Range: Vitamin D status Range Deficiency <20 ng/mL Mild Deficiency 20-30 ng/mL Sufficiency 30-100 ng/mL Toxicity >100 ng/mL Performed By: #### I OCAL, MG, PATRICK, CDP, BMP #### [facility] [employer] [address] [place] [phone] Purification Operator Helper: Paul Hodge MD XR CHEST PORTABLEon 01-20-20 [...] Matteo Milian MD 01/19/23 Final result Normal [facility] Basic Metabolic Profon 01-18 Anion gap [Moles/Vol] 12 mmol/L Normal 9-17 [facility] Comment on above: Performed By: #### C DP, BMP #### [facility] [employer] [address] [place] [phone] Purification Operator Helper: Paul Hodge MD Calcium [Mass/Vol] 8.7 mg/dL Normal 8.6-10.4 [facility] Comment on above: Performed By: #### C DP, BMP #### [facility] [employer] [address] [place] [address] [phone] Purification Operator Helper: Paul Hodge MD Chloride [Moles/Vol] 103 mmol/L Normal 98-107 [facility] Comment on above: Performed By: #### C DP, BMP #### [facility] [employer] [address] [place] [address] [phone] Purification Operator Helper: Paul Hodge MD CO2 [Moles/Vol] 21 mmol/L Normal 20-31 [facility] Comment on above: Performed By: #### C DP, BMP #### [facility] [employer] [address] [place] [address] [phone] Purification Operator Helper: Paul Hodge MD Creatinine [Mass/Vol] 0.7 mg/dL Normal 0.7-1.2 [facility] Comment on above: Performed By: #### C DP, BMP #### [facility] [employer] [address] [place] [address] [phone] Purification Operator Helper: Paul Hodge MD GFR/1.73 sq M.predicted among non-blacks MDRD (S/P/Bld) [Vol rate/Area] mL/min/{1.73_m2} Normal >60 [facility] Comment on above: Result Comment: These results [...] Performed By: #### C DP, BMP #### [facility] [address] [place] [phone] Purification Operator Helper: Paul Hodge MD Glucose [Mass/Vol] 170 mg/dL High 70-99 [facility] Comment on above: Performed By: #### C DP, BMP #### [facility] [employer] [address] [place] [address] [phone] Purification Operator Helper: Paul Hodge MD Potassium [Moles/Vol] 4.8 mmol/L Normal 3.7-5.3 [facility] Comment on above: Performed By: #### C DP, BMP #### [facility] [address] [place] [phone] Purification Operator Helper: Paul Hodge MD Sodium [Moles/Vol] 136 mmol/L Normal 135-144 [facility] Comment on above: Performed By: #### C DP, BMP #### [facility] [employer] [address] [place] [address] [phone] Purification Operator Helper: Paul Hodge MD Urea nitrogen [Mass/Vol] 21 mg/dL Normal 8-23 [facility] Comment on above: Performed By: #### C DP, BMP #### [address] [address] Purification Operator Helper: Paul Hodge MD CBC with Diffon 01-18-2023 Abs. Basophil <0.03 Normal 0.00-0.20 [facility] Comment on above: Performed By: #### C DP, BMP #### [address] [address] Purification Operator Helper: Paul Hodge MD Abs.Imm.Granulocyte 0.09 k/uL Normal 0.00-0.30 [facility] Comment on above: Performed By: #### C DP, BMP #### [place] [address] Purification Operator Helper: Paul Hodge MD Abs.Neutrophil (Seg) 13.01 k/uL High 1.50-8.10 [facility] Comment on above: Performed By: #### C DP, BMP #### [address] [address] Purification Operator Helper: Paul Hodge MD Basophils/100 WBC (Bld) 0 % Normal 0-2 [facility] Comment on above: Performed By: #### C DP, BMP #### [address] [address] Purification Operator Helper: Paul Hodge MD Eosinophils (Bld) [#/Vol] 0.03 10*3/uL Normal 0.00-0.44 [facility] Comment on above: Performed By: #### C DP, BMP #### [address] [address] Purification Operator Helper: Paul Hodge MD Eosinophils/100 WBC (Bld) 0 % Low 1-4 [facility] Comment on above: Performed By: #### C DP, BMP #### [facility] [employer] [address] [place] [phone] Purification Operator Helper: Paul Hodge MD Erythrocyte distribution width (RBC) [Ratio] 13.7 % Normal 11.8-14.4 [facility] Comment on above: Performed By: #### C DP, BMP #### [facility] [employer] [address] [place] [phone] Purification Operator Helper: Paul Hodge MD Hematocrit (Bld) [Volume fraction] 37.3 % Low 40.7-50.3 [facility] Comment on above: Performed By: #### C DP, BMP #### [facility] [employer] [address] [place] [address] [phone] Purification Operator Helper: Paul Hodge MD Hemoglobin (Bld) [Mass/Vol] 11.9 g/dL Low 13.0-17.0 [facility] Comment on above: Performed By: #### C DP, BMP #### [address] [address] Purification Operator Helper: Paul Hodge MD Immature granulocytes/100 WBC (Bld) 1 % High 0 [facility] Comment on above: Performed By: #### C DP, BMP #### [address] [address] Purification Operator Helper: Paul Hodge MD Lymphocytes (Bld) [#/Vol] 0.76 10*3/uL Low 1.10-3.70 [facility] Comment on above: Performed By: #### C DP, BMP #### [facility] [employer] [address] [place] [address] [phone] Purification Operator Helper: Paul Hodge MD Lymphocytes/100 WBC (Bld) 5 % Low 24-43 [facility] Comment on above: Performed By: #### C DP, BMP #### [facility] [employer] [address] [place] [phone] Purification Operator Helper: Paul Hodge MD MCH (RBC) [Entitic mass] 29.7 pg Normal 25.2-33.5 [facility] Comment on above: Performed By: #### C DP, BMP #### [address] [address] Purification Operator Helper: Paul Hodge MD MCHC (RBC) [Mass/Vol] 31.9 g/dL Normal 28.4-34.8 [facility] Comment on above: Performed By: #### C DP, BMP #### [address] [address] Purification Operator Helper: Paul Hodge MD MCV (RBC) [Entitic vol] 93.0 fL Normal 82.6-102.9 [facility] Comment on above: Performed By: #### C DP, BMP #### [address] [address] Purification Operator Helper: Paul Hodge MD Monocytes (Bld) [#/Vol] 1.30 10*3/uL High 0.10-1.20 [facility] Comment on above: Performed By: #### C DP, BMP #### [address] [address] Purification Operator Helper: Paul Hodge MD Monocytes/100 WBC (Bld) 9 % Normal 3-12 [facility] Comment on above: Performed By: #### C DP, BMP #### [address] [address] Purification Operator Helper: Paul Hodge MD Neutrophil (Seg) 85 % High 36-65 [facility] Comment on above: Performed By: #### C DP, BMP #### [address] [address] Purification Operator Helper: Paul Hodge MD NRBC Automated 0.0 per 100 WBC Normal 0.0 [facility] Comment on above: Performed By: #### C DP, BMP #### [address] [address] Purification Operator Helper: Paul Hodge MD Platelet mean volume (Bld) [Entitic vol] 12.1 fL Normal 8.1-13.5 [facility] Comment on above: Performed By: #### C DP, BMP #### [address] [address] Purification Operator Helper: Paul Hodge MD Platelets (Bld) [#/Vol] 186 10*3/uL Normal 138-453 [facility] Comment on above: Performed By: #### C DP, BMP #### [address] [address] Purification Operator Helper: Paul Hodge MD RBC (Bld) [#/Vol] 4.01 10*6/uL Low 4.21-5.77 [facility] Comment on above: Performed By: #### C DP, BMP #### [address] [address] Purification Operator Helper: Paul Hodge MD WBC (Bld) [#/Vol] 15.2 10*3/uL High 3.5-11.3 [facility] Comment on above: Performed By: #### C DP, BMP #### [address] [address] Purification Operator Helper: Paul Hodge MD Basic Metabolic Profon 01-17 Anion gap [Moles/Vol] 12 mmol/L Normal 9-17 [facility] Comment on above: Performed By: #### I OCAL, MG, PATRICK, CDP, BMP #### [address] [address] Purification Operator Helper: Paul Hodge MD Calcium [Mass/Vol] 8.8 mg/dL Normal 8.6-10.4 [facility] Comment on above: Performed By: #### I OCAL, MG, PATRICK, CDP, BMP #### [facility] [employer] [address] [place] [address] [phone] Purification Operator Helper: Paul Hodge MD Chloride [Moles/Vol] 103 mmol/L Normal 98-107 [facility] Comment on above: Performed By: #### I OCAL, MG, PATRICK, CDP, BMP #### [facility] [employer] [address] [place] [phone] Purification Operator Helper: Paul Hodge MD CO2 [Moles/Vol] 21 mmol/L Normal 20-31 [facility] Comment on above: Performed By: #### I OCAL, MG, PATRICK, CDP, BMP #### [facility] [employer] [address] [place] [address] [phone] Purification Operator Helper: Paul Hodge MD Creatinine [Mass/Vol] 0.7 mg/dL Normal 0.7-1.2 [facility] Comment on above: Performed By: #### I OCAL, MG, PATRICK, CDP, BMP #### [facility] [employer] [address] [place] [phone] Purification Operator Helper: Paul Hodge MD GFR/1.73 sq M.predicted among non-blacks MDRD (S/P/Bld) [Vol rate/Area] mL/min/{1.73_m2} Normal >60 [facility] Comment on above: Result Comment: These results [...] I OCAL, MG, PATRICK, CDP, BMP #### [facility] [employer] [address] [place] [address] [phone] Purification Operator Helper: Paul Hodge MD Glucose [Mass/Vol] 158 mg/dL High 70-99 [facility] Comment on above: Performed By: #### I OCAL, MG, PATRICK, CDP, BMP #### [facility] [address] [place] [address] 73792 Purification Operator Helper: Paul oHdge MD Potassium [Moles/Vol] 4.2 mmol/L Normal 3.7-5.3 [facility] Comment on above: Performed By: #### I OCAL, MG, PATRICK, CDP, BMP #### [facility] [address] [place] [address] [phone] Purification Operator Helper: Paul Hodge MD Sodium [Moles/Vol] 136 mmol/L Normal 135-144 [facility] Comment on above: Performed By: #### I OCAL, MG, PATRICK, CDP, BMP #### [facility] [address] [place] [phone] Purification Operator Helper: Paul Hodge MD Urea nitrogen [Mass/Vol] 18 mg/dL Normal 8-23 [facility] Comment on above: Performed By: #### I OCAL, MG, PATRICK, CDP, BMP #### [facility] [address] [place] [phone] Purification Operator Helper: Paul Hodge MD Anion gap [Moles/Vol] 11 mmol/L Normal 9-17 [facility] Comment on above: Performed By: #### I OCAL, MG, PATRICK, CDP, BMP #### [employer] [address] [place] [phone] Purification Operator Helper: Paul Hodge MD Calcium [Mass/Vol] 8.9 mg/dL Normal 8.6-10.4 [facility] Comment on above: Performed By: #### I OCAL, MG, PATRICK, CDP, BMP #### [facility] [address] [place] [address] [phone] Purification Operator Helper: Paul Hodge MD Chloride [Moles/Vol] 107 mmol/L Normal 98-107 [facility] Comment on above: Performed By: #### I OCAL, MG, PATRICK, CDP, BMP #### [facility] [employer] [facility] [place], [place] [phone] Purification Operator Helper: Paul Hodge MD CO2 [Moles/Vol] 20 mmol/L Normal 20-31 [facility] Comment on above: Performed By: #### I OCAL, MG, PATRICK, CDP, BMP #### [facility] [employer] [address] [place] [address] [phone] Purification Operator Helper: Paul Hodge MD Creatinine [Mass/Vol] 0.7 mg/dL Normal 0.7-1.2 [facility] Comment on above: Performed By: #### I OCAL, MG, PATRICK, CDP, BMP #### [address] [address] Purification Operator Helper: Paul Hodge MD GFR/1.73 sq M.predicted among non-blacks MDRD (S/P/Bld) [Vol rate/Area] mL/min/{1.73_m2} Normal >60 [facility] Comment on above: Result Comment: These results [...] I OCAL, MG, PATRICK, CDP, BMP #### [facility] [employer] [address] [place] [address] [phone] Purification Operator Helper: Paul Hodge MD Glucose [Mass/Vol] 119 mg/dL High 70-99 [facility] Comment on above: Performed By: #### I OCAL, MG, PATRICK, CDP, BMP #### [facility] [address] [place] [address] [phone] Purification Operator Helper: Paul Hodge MD Potassium [Moles/Vol] 4.4 mmol/L Normal 3.7-5.3 [facility] Comment on above: Performed By: #### I OCAL, MG, PATRICK, CDP, BMP #### [facility] [address] [place] [address] 12916 Purification Operator Helper: Paul Hodge MD Sodium [Moles/Vol] 138 mmol/L Normal 135-144 [facility] Comment on above: Performed By: #### I OCAL, MG, PATRICK, CDP, BMP #### [facility] [address] [place] [address] 06448 Purification Operator Helper: Paul Hodge MD Urea nitrogen [Mass/Vol] 23 mg/dL Normal 8-23 [facility] Comment on above: Performed By: #### I OCAL, MG, PATRICK, CDP, BMP #### [facility] [address] [place] [phone] Purification Operator Helper: Paul Hodge MD CBCon 01-17-2023 Erythrocyte distribution width (RBC) [Ratio] 13.7 % Normal 11.8-14.4 [facility] Comment on above: Performed By: #### I OCAL, MG, PATRICK, CDP, BMP #### [facility] [address] [place] [phone] Purification Operator Helper: Paul Hodge MD Hematocrit (Bld) [Volume fraction] 40.1 % Low 40.7-50.3 [facility] Comment on above: Performed By: #### I OCAL, MG, PATRICK, CDP, BMP #### [facility] [address] [place] [address] 26706 Purification Operator Helper: Paul Hodge MD Hemoglobin (Bld) [Mass/Vol] 12.8 g/dL Low 13.0-17.0 [facility] Comment on above: Performed By: #### I OCAL, MG, PATRICK, CDP, BMP #### [address] [address] Purification Operator Helper: Paul Hodge MD MCH (RBC) [Entitic mass] 29.9 pg Normal 25.2-33.5 [facility] Comment on above: Performed By: #### I OCAL, MG, PATRICK, CDP, BMP #### [address] [address] Purification Operator Helper: Paul Hodge MD MCHC (RBC) [Mass/Vol] 31.9 g/dL Normal 28.4-34.8 [facility] Comment on above: Performed By: #### I OCAL, MG, PATRICK, CDP, BMP #### [address] [address] Purification Operator Helper: Paul Hodge MD MCV (RBC) [Entitic vol] 93.7 fL Normal 82.6-102.9 [facility] Comment on above: Performed By: #### I OCAL, MG, PATRICK, CDP, BMP #### [address] [address] Purification Operator Helper: Paul Hodge MD NRBC Automated 0.0 per 100 WBC Normal 0.0 [facility] Comment on above: Performed By: #### I OCAL, MG, PATRICK, CDP, BMP #### [address] [address] Purification Operator Helper: Paul Hodge MD Platelet mean volume (Bld) [Entitic vol] 11.4 fL Normal 8.1-13.5 [facility] Comment on above: Performed By: #### I OCAL, MG, PATRICK, CDP, BMP #### [address] [address] Purification Operator Helper: Paul Hodge MD Platelets (Bld) [#/Vol] 175 10*3/uL Normal 138-453 [facility] Comment on above: Performed By: #### I OCAL, MG, PATRICK, CDP, BMP #### [facility] [employer] [address] [place] [phone] Purification Operator Helper: Paul Hodge MD RBC (Bld) [#/Vol] 4.28 10*6/uL Normal 4.21-5.77 [facility] Comment on above: Performed By: #### I OCAL, MG, PATRICK, CDP, BMP #### [facility] [address] [place] [address] Purification Operator Helper: Paul Hodge MD WBC (Bld) [#/Vol] 15.7 10*3/uL High 3.5-11.3 [facility] Comment on above: Performed By: #### I OCAL, MG, PATRICK, CDP, BMP #### [facility] [employer] [address] [place] [address] Purification Operator Helper: Paul Hodge MD CBC with Diffon 01-17-2023 Abs. Basophil 0.04 k/uL Normal 0.00-0.20 [facility] Comment on above: Performed By: #### I OCAL, MG, PATRICK, CDP, BMP #### [facility] [employer] [address] [place] [address] Purification Operator Helper: Paul Hodge MD Abs.Imm.Granulocyte 0.07 k/uL Normal 0.00-0.30 [facility] Comment on above: Performed By: #### I OCAL, MG, PATRICK, CDP, BMP #### [facility] [employer] [address] [place] [address] Purification Operator Helper: Paul Hodge MD Abs.Neutrophil (Seg) 6.68 k/uL Normal 1.50-8.10 [facility] Comment on above: Performed By: #### I OCAL, MG, PATRICK, CDP, BMP #### [employer] [address] Purification Operator Helper: Paul Hodge MD Basophils/100 WBC (Bld) 0 % Normal 0-2 [facility] Comment on above: Performed By: #### I OCAL, MG, PATRICK, CDP, BMP #### [address] [address] Purification Operator Helper: Paul Hodge MD Eosinophils (Bld) [#/Vol] 0.30 10*3/uL Normal 0.00-0.44 [facility] Comment on above: Performed By: #### I OCAL, MG, PATRICK, CDP, BMP #### [facility] [employer] [address] [place] [address] Purification Operator Helper: Paul Hodge MD Eosinophils/100 WBC (Bld) 3 % Normal 1-4 [facility] Comment on above: Performed By: #### I OCAL, MG, PATRICK, CDP, BMP #### [facility] [employer] [address] [place] [address] Purification Operator Helper: Paul Hodge MD Erythrocyte distribution width (RBC) [Ratio] 14.0 % Normal 11.8-14.4 [facility] Comment on above: Performed By: #### I OCAL, MG, PATRICK, CDP, BMP #### [facility] [employer] [address] [place] [address] Purification Operator Helper: Paul Hodge MD Hematocrit (Bld) [Volume fraction] 38.5 % Low 40.7-50.3 [facility] Comment on above: Performed By: #### I OCAL, MG, PATRICK, CDP, BMP #### [facility] [employer] [address] [place] [address] Purification Operator Helper: Paul Hodge MD Hemoglobin (Bld) [Mass/Vol] 12.1 g/dL Low 13.0-17.0 [facility] Comment on above: Performed By: #### I OCAL, MG, PATRICK, CDP, BMP #### [address] [address] Purification Operator Helper: Paul Hodge MD Immature granulocytes/100 WBC (Bld) 1 % High 0 [facility] Comment on above: Performed By: #### I OCAL, MG, PATRICK, CDP, BMP #### [address] [address] Purification Operator Helper: Paul Hodge MD Lymphocytes (Bld) [#/Vol] 1.08 10*3/uL Low 1.10-3.70 [facility] Comment on above: Performed By: #### I OCAL, MG, PATRICK, CDP, BMP #### [address] [address] Purification Operator Helper: Paul Hodge MD Lymphocytes/100 WBC (Bld) 11 % Low 24-43 [facility] Comment on above: Performed By: #### I OCAL, MG, PATRICK, CDP, BMP #### [address] [address] Purification Operator Helper: Paul Hodge MD MCH (RBC) [Entitic mass] 29.8 pg Normal 25.2-33.5 [facility] Comment on above: Performed By: #### I OCAL, MG, PATRICK, CDP, BMP #### [address] [address] Purification Operator Helper: Paul Hodge MD MCHC (RBC) [Mass/Vol] 31.4 g/dL Normal 28.4-34.8 [facility] Comment on above: Performed By: #### I OCAL, MG, PATRICK, CDP, BMP #### [address] [address] Purification Operator Helper: Paul Hodge MD MCV (RBC) [Entitic vol] 94.8 fL Normal 82.6-102.9 [facility] Comment on above: Performed By: #### I OCAL, MG, PATRICK, CDP, BMP #### [facility] [employer] [address] [place] [phone] Purification Operator Helper: Paul Hodge MD Monocytes (Bld) [#/Vol] 1.38 10*3/uL High 0.10-1.20 [facility] Comment on above: Performed By: #### I OCAL, MG, PATRICK, CDP, BMP #### [facility] [employer] [address] [place] [phone] Purification Operator Helper: aPul Hodge MD Monocytes/100 WBC (Bld) 15 % High 3-12 [facility] Comment on above: Performed By: #### I OCAL, MG, PATRICK, CDP, BMP #### [facility] [employer] [address] [place] [phone] Purification Operator Helper: Paul Hodge MD Neutrophil (Seg) 70 % High 36-65 [facility] Comment on above: Performed By: #### I OCAL, MG, PATRICK, CDP, BMP #### [facility] [employer] [address] [place] [phone] Purification Operator Helper: Paul Hodge MD NRBC Automated 0.0 per 100 WBC Normal 0.0 [facility] Comment on above: Performed By: #### I OCAL, MG, PATRICK, CDP, BMP #### [facility] [employer] [address] [place] [phone] Purification Operator Helper: Paul Hodge MD Platelet mean volume (Bld) [Entitic vol] 12.0 fL Normal 8.1-13.5 [facility] Comment on above: Performed By: #### I OCAL, MG, PATRICK, CDP, BMP #### [facility] [employer] [address] [place] [phone] Purification Operator Helper: Paul Hodge MD Platelets (Bld) [#/Vol] 187 10*3/uL Normal 138-453 [facility] Comment on above: Performed By: #### I OCAL, MG, PATRICK, CDP, BMP #### [facility] [address] [place] [address] [phone] Purification Operator Helper: Paul Hodge MD RBC (Bld) [#/Vol] 4.06 10*6/uL Low 4.21-5.77 [facility] Comment on above: Performed By: #### I OCAL, MG, PATRICK, CDP, BMP #### [facility] [address] [place] [address] [phone] Purification Operator Helper: Paul Hodge MD WBC (Bld) [#/Vol] 9.6 10*3/uL Normal 3.5-11.3 [facility] [facility] Comment on above: Performed By: #### I OCAL, MG, PATRICK, CDP, BMP #### [facility] [employer] [address] [place] [address] [phone] Purification Operator Helper: Paul Hodge MD Calcium, Ionicon 01-17-2023 Calcium [Moles/Vol] 1.11 mmol/L Low 1.13-1.33 [facility] Comment on above: Performed By: #### I OCAL, MG, PATRICK, CDP, BMP #### [facility] [address] [place] [address] [phone] Purification Operator Helper: Paul Hodge MD FLUORO FOR SURGICAL PROCEDUR ESon 01-17-2023 FLUORO FOR SURGICAL PROCEDURES Radiology exam is complete. No Radiologist dictation. Please follow up with ordering provider. Final result Normal [facility] Magnesiumon 01-17-2023 Magnesium [Mass/Vol] 2.3 mg/dL Normal 1.6-2.6 [facility] Comment on above: Performed By: #### I OCAL, MG, PATRICK, CDP, BMP #### [facility] [address] [place] [address] [phone] Purification Operator Helper: Paul Hodge MD Phosphorus, Inorg.on 023 Phosphorus, Inorg. 4.2 mg/dL Normal 2.5-4.5 [facility] Comment on above: Performed By: #### I OCAL, MG, PATRICK, CDP, BMP #### [facility] [address] [place] [address] Purification Operator Helper: Paul Hodge MD XR FEMUR RIGHT (MIN [...] Matteo Milian MD 01/17/23 Final result Normal [facility] ABO/Rhon 01-16-2023 ABO/Rh Positive Invalid Interpretation Code [facility] Comment on above: Performed By: #### 2 [id number] #### [facility] [address] [place] [address] ABO/Rh History Checkon 01-16 ABO/Rh History Check Verified Hx Blood Type Normal [facility] Comment on above: Performed By: #### 2 720288 #### [facility] [address] [place] [address] ABSCon 01-16-2023 ABSC Gel Interp Negative Normal [facility] Comment on above: Performed By: #### 2 692927 #### [facility] [address] [place] [address] APTTon 01-16-2023 aPTT Coag (Bld) [Time] 27.7 s Normal 23.0-36.5 [facility] Comment on above: Result Comment: IV Heparin Therapy Range: 66.0-92.0 sec Performed By: #### I OCAL, MG, PATRICK, CDP, BMP #### [facility] [address], [place] [phone] Purification Operator Helper: Paul Hodge MD Albuminon 01-16-2023 Albumin [Mass/Vol] 3.7 g/dL Normal 3.5-5.2 [facility] Comment on above: Performed By: #### I OCAL, MG, PATRICK, CDP, BMP #### [facility] [address], [place] [phone] Purification Operator Helper: Paul Hodge MD Auto Diffon 01-16-2023 Basophils/100 WBC (Bld) 0.7 % Normal 0.0-2.0 [facility] Comment on above: Order Comment: Order Added by Discern Expert. Performed By: #### 1 6840984, 7135293, 8689011, 7853769, 5789310, 8389799, 7344299, 73498136, 7383616 ####[facility] [address] [place] [address] Basophils/Leukocytes Auto (Bld) [Pure # fraction] 0.1 E9/L Normal 0.0-0.2 [facility] Comment on above: Order Comment: Order Added by Discern Expert. Performed By: #### 1 3890273, 6168638, 0825636, 4949679, 9722311, 5061167, 8900845, 99202068, 3849346 ####[facility] [address] [place] [address] Eosinophils/100 WBC (Bld) 5.9 % Normal 0.0-8.0 [facility] Comment on above: Order Comment: Order Added by Discern Expert. Performed By: #### 1 3256489, 5336296, 9543256, 3766372, 5325055, 4235246, 0467798, 71868636, 5614444 ####[facility] [address] [place] [address] Eosinophils/Leukocytes Auto (Bld) [Pure # fraction] 0.6 E9/L High 0.0-0.5 [facility] Comment on above: Order Comment: Order Added by Discern Expert. Performed By: #### 1 1170645, 0099962, 6878396, 6573087, 6022827, 8823174, 6214264, 48643768, 6528441 ####[facility] [address] [place] [address] Lymphocytes/100 WBC (Bld) 13.7 % Low 14.0-50.0 [facility] Comment on above: Order Comment: Order Added by Discern Expert. Performed By: #### 1 7711650, 3445507, 5686061, 6715988, 7630635, 1674163, 1263160, 81377168, 8179453 ####[address] [address] Lymphocytes/Leukocytes Auto (Bld) [Pure # fraction] 1.3 E9/L Normal 1.0-4.0 [facility] Comment on above: Order Comment: Order Added by Discern Expert. Performed By: #### 1 9510850, 6452258, 2026199, 7659364, 0532661, 6011996, 8619797, 13532637, 4421090 ####[place] [address] [place] [address] Monocytes/100 WBC (Bld) 10.7 % Normal 4.0-14.0 [facility] Comment on above: Order Comment: Order Added by Discern Expert. Performed By: #### 1 6257003, 4218715, 9260491, 4258580, 7720275, 4627589, 6320931, 60070953, 4289118 ####[address] [address] Monocytes/Leukocytes Auto (Bld) [Pure # fraction] 1.0 E9/L Normal 0.2-1.0 [facility] Comment on above: Order Comment: Order Added by Anjel Expert. Performed By: #### 1 2392320, 3009099, 5490667, 5456836, 0794943, 6823900, 0603130, 00552393, 8568893 ####[facility] [address] [place] [address] Neutrophils/100 WBC (Bld) 69.0 % Normal 36.0-75.0 [facility] Comment on above: Order Comment: Order Added by Discern Expert. Performed By: #### 1 8833553, 1334624, 0231641, 1115394, 0068884, 5623766, 1653770, 07298049, 7064942 ####[facility] [address] [place] [address] Neutrophils/Leukocytes Auto (Bld) [Pure # fraction] 6.5 E9/L Normal 2.0-7.5 [facility] Comment on above: Order Comment: Order Added by Discern Expert. Performed By: #### 1 2734017, 2565428, 9858334, 4809253, 8138668, 8523532, 5376973, 36005404, 3640661 ####[facility] [address] [place] [address] BMPon 01-16-2023 Creatinine [Mass/Vol] 0.8 mg/dL Normal 0.5-1.3 [facility] Comment on above: Performed By: #### 1 8170486, 7307114, 9516193, 9724082, 2156027, 3768956, 4601756, 41672588, 6215038 ####[facility] [address] [place] [address] Urea nitrogen [Mass/Vol] 20 mg/dL Normal 5-21 [facility] Comment on above: Performed By: #### 1 2718765, 2503876, 3893967, 0802096, 8532445, 1870807, 9318913, 38855455, 4953529 ####[facility] [address] [place] [address] Urea nitrogen/Creatinine [Mass ratio] 25 No Units High 10-20 [facility] Comment on above: Performed By: #### 1 1689857, 9803387, 0198383, 1116283, 7388205, 1864382, 8668210, 31068520, 0133213 ####[facility] [address] [place] [address] Anion gap [Moles/Vol] 13 mmol/L Normal 6-16 [facility] Comment on above: Performed By: #### 1 7491432, 5549459, 7832283, 1039769, 1101964, 1685756, 4299459, 01397575, 2691686 ####[facility] [address] [place] [address] Calcium [Mass/Vol] 9.0 mg/dL Normal 8.9-11.1 [facility] Comment on above: Performed By: #### 1 5350258, 7861548, 9815762, 4456528, 3685452, 5324816, 2323138, 44121778, 3329355 ####[facility] [address] [place] [address] Chloride [Moles/Vol] 104 mmol/L Normal 101-111 [facility] Comment on above: Performed By: #### 1 2048739, 4833250, 3659805, 3503401, 7017500, 0087535, 8244288, 95455252, 1473339 ####[facility] [address] [place] [address] CO2 [Moles/Vol] 23 mmol/L Normal 21-31 [facility] Comment on above: Performed By: #### 1 0875315, 2479507, 1127228, 4240062, 3924090, 7110271, 4355955, 61635936, 7518805 ####[facility] [address] [place] [address] Glucose [Mass/Vol] 138 mg/dL Normal 55-199 [facility] Comment on above: Result Comment: If t his glucose result represents a fasting glucose, interpretation should refer to the following reference range: 55-99 mg/dL Performed By: #### 1 5273712, 4080823, 3387852, 8905132, 4569520, 8750811, 5619042, 67932201, 1997439 ####[facility] [address] [place] [address] Potassium [Moles/Vol] 4.1 mmol/L Normal 3.5-5.3 [facility] Comment on above: Performed By: #### 1 0686380, 1641077, 3948461, 7692976, 3749826, 4842723, 6722084, 48759260, 7934250 ####[facility] [address] [place] [address] Sodium [Moles/Vol] 136 mmol/L Normal 135-145 [facility] Comment on above: Performed By: #### 1 5530160, 1652608, 9473260, 3912808, 0311531, 1363888, 7201156, 28953121, 0576876 ####[facility] [address] [place] [address] BUN (Urea N)on 01-16-2023 Urea nitrogen [Mass/Vol] 16 mg/dL Normal 8-23 [facility] Comment on above: Performed By: #### I OCAL, MG, PATRICK, CDP, BMP #### [address] [address] Purification Operator Helper: Paul Hodge MD Blood Bank ID#on 01-16-2023 BBID# [id number] Invalid Interpretation Code [facility] Comment on above: Performed By: #### 2 153192 #### [facility] [address] [place] [address] CBCon 01-16-2023 Erythrocyte distribution width (RBC) [Ratio] 13.8 % Normal 11.8-14.4 [facility] Comment on above: Performed By: #### I OCAL, MG, PATRICK, CDP, BMP #### [address] [address] Purification Operator Helper: Paul Hodge MD Hematocrit (Bld) [Volume fraction] 44.6 % Normal 40.7-50.3 [facility] Comment on above: Performed By: #### I OCAL, MG, PATRICK, CDP, BMP #### [address] [address] Purification Operator Helper: Paul Hodge MD Hemoglobin (Bld) [Mass/Vol] 14.5 g/dL Normal 13.0-17.0 [facility] Comment on above: Performed By: #### I OCAL, MG, PATRICK, CDP, BMP #### [address] [address] Purification Operator Helper: Paul oHdge MD MCH (RBC) [Entitic mass] 29.9 pg Normal 25.2-33.5 [facility] Comment on above: Performed By: #### I OCAL, MG, PATRICK, CDP, BMP #### [address] [address] Purification Operator Helper: Paul Hodge MD MCHC (RBC) [Mass/Vol] 32.5 g/dL Normal 28.4-34.8 [facility] Comment on above: Performed By: #### I OCAL, MG, PATRICK, CDP, BMP #### [address] [address] Purification Operator Helper: Paul Hodge MD MCV (RBC) [Entitic vol] 92.0 fL Normal 82.6-102.9 [facility] Comment on above: Performed By: #### I OCAL, MG, PATRICK, CDP, BMP #### [address] [address] Purification Operator Helper: Paul Hodge MD NRBC Automated 0.0 per 100 WBC Normal 0.0 [facility] Comment on above: Performed By: #### I OCAL, MG, PATRICK, CDP, BMP #### [address] [address] Purification Operator Helper: Paul Hodge MD Platelet mean volume (Bld) [Entitic vol] 12.6 fL Normal 8.1-13.5 [facility] Comment on above: Performed By: #### I OCAL, MG, PATRICK, CDP, BMP #### [employer] [address] [place] [address] Purification Operator Helper: Paul Hodge MD Platelets (Bld) [#/Vol] 206 10*3/uL Normal 138-453 [facility] Comment on above: Performed By: #### I OCAL, MG, PATRICK, CDP, BMP #### [facility] [employer] [address] [place] [address] [phone] Purification Operator Helper: Paul Hodge MD RBC (Bld) [#/Vol] 4.85 10*6/uL Normal 4.21-5.77 [facility] Comment on above: Performed By: #### I OCAL, MG, PATRICK, CDP, BMP #### [facility] [employer] [address] [place] [address] Purification Operator Helper: Paul Hodge MD WBC (Bld) [#/Vol] 16.3 10*3/uL High 3.5-11.3 [facility] Comment on above: Performed By: #### I OCAL, MG, PATRICK, CDP, BMP #### [facility] [employer] [address] [place] [address] [phone] Purification Operator Helper: Paul Hodge MD CBC w/ Auto Diffon 3 Erythrocyte distribution width (RBC) [Ratio] 14.3 % High 10.9-14.2 [facility] Comment on above: Performed By: #### 1 9722499, 0479126, 2857165, 9387415, 9283793, 9492576, 5826317, 82008890, 0371149 ####[facility] [address] [place] [address] Hematocrit (Bld) [Volume fraction] 42.4 % Normal 37.7-49.0 [facility] Comment on above: Performed By: #### 1 3031143, 4864627, 5159912, 4614910, 3129446, 0354527, 7471531, 74771147, 0328827 ####[address] [place] [address] Hemoglobin (Bld) [Mass/Vol] 13.9 g/dL Normal 13.5-17.5 [facility] Comment on above: Performed By: #### 1 3801358, 6102214, 9215695, 8160038, 9520241, 4258933, 2497821, 43147334, 2410207 ####[address] [place] [address]12057 MCH (RBC) [Entitic mass] 29.6 pg Normal 27.0-34.0 [facility] Comment on above: Performed By: #### 1 7036437, 3544888, 0431392, 2581190, 7509393, 9199100, 3790373, 76979781, 6212450 ####[address] [address] MCHC (RBC) [Mass/Vol] 32.8 g/dL Normal 31.4-36.0 [facility] Comment on above: Performed By: #### 1 3602179, 3724593, 8568999, 2402696, 6328306, 6570599, 4840148, 56461695, 3093396 ####[place] [address] MCV (RBC) [Entitic vol] 90.3 fL Normal 80.0-100.0 [facility] Comment on above: Performed By: #### 1 4714562, 1920861, 8668359, 3812401, 5506273, 4568166, 9338952, 59002013, 3011186 ####[address] [place] [address] Platelet mean volume (Bld) [Entitic vol] 10.1 fL Normal 6.4-10.8 [facility] Comment on above: Performed By: #### 1 1151945, 7697238, 5659545, 9415917, 2459412, 9884617, 4567616, 05474443, 4874078 ####[facility] [address] [place] [address] Platelets (Bld) [#/Vol] 197.0 E9/L Normal 150.0-500.0 [facility] Comment on above: Performed By: #### 1 5332997, 0624123, 4474343, 4992854, 9942601, 3812204, 3909533, 39623806, 2380857 ####[facility] [address] [place] [address] RBC (Bld) [#/Vol] 4.7 E12/L Normal 4.3-5.9 [facility] Comment on above: Performed By: #### 1 0676148, 9614561, 4503970, 1615833, 9738547, 9199894, 5154257, 21702736, 6479842 ####[facility] [address] [place] [address] WBC corrected for nucl RBC Auto (Bld) [#/Vol] 9.4 E9/L Normal 4.0-11.0 [facility] Comment on above: Performed By: #### 1 7343502, 3940216, 1562011, 3207051, 8303837, 8070216, 1363614, 96672154, 9147800 ####[address] [place] [address] CT CHEST ABDOMEN PELVIS W CO NTRASTon [...] Obinna Luis MD 01/16/23 Final result Normal [facility] CT Head or Brain w/o Contras ton [...] V. Transcribed by: OVI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 [address] [place] [address] CO2 [Moles/Vol] 22 mmol/L Normal 21-31 [facility] Comment on above: Performed By: #### 2 408357, 7333664, 8477603, 71041629, 4376449, 78699600, 1904695, 4698911, 3487265 ####[facility] [address] [place] [address] Glucose [Mass/Vol] 149 mg/dL Normal 55-199 [facility] Comment on above: Result Comment: If t his glucose result represents a fasting glucose, interpretation should refer to the following reference range: 55-99 mg/dL Performed By: #### 2 841529, 4448022, 4834085, 94108144, 1432764, 53565292, 9633108, 2031850, 9348322 ####[facility] [address] [place] [address] Potassium [Moles/Vol] 4.1 mmol/L Normal 3.5-5.3 [facility] Comment on above: Performed By: #### 2 405805, 1487707, 9402138, 67694505, 9872980, 42258463, 8300368, 1846845, 0663487 ####[facility] [address] [place] [address] Sodium [Moles/Vol] 137 mmol/L Normal 135-145 [facility] Comment on above: Performed By: #### 2 401097, 6876122, 0701095, 67881024, 6720275, 07356701, 9185899, 3184924, 2194754 ####[facility] [address] [place] [address] Blood Bank ID#on 12-17-2022 BBID# [id number] Invalid Interpretation Code [facility] Comment on above: Performed By: #### 2 432585, 95057099, 34881975, 09311409 ####[facility] [address] [place] [address] CBC w/ Auto Diffon Erythrocyte distribution width (RBC) [Ratio] 14.3 % High 10.9-14.2 [facility] Comment on above: Performed By: #### 2 831303, 2137041, 7927884, 04883797, 5606877, 48169683, 2241303, 2811358, 5197116 #### [facility] [address] [place] [address] Hematocrit (Bld) [Volume fraction] 42.9 % Normal 37.7-49.0 [facility] Comment on above: Performed By: #### 2 752612, 6391831, 1404318, 86558488, 4394052, 07779114, 5905753, 0480889, 7175700 #### [facility] [address] [place] [address] Hemoglobin (Bld) [Mass/Vol] 14.1 g/dL Normal 13.5-17.5 [facility] Comment on above: Performed By: #### 2 081649, 1250440, 1163198, 81424364, 7711164, 71899083, 9195011, 9388854, 6772659 #### [facility] [address] [place] [address] MCH (RBC) [Entitic mass] 29.4 pg Normal 27.0-34.0 [facility] Comment on above: Performed By: #### 2 260502, 1262413, 5222419, 00056653, 5399367, 17137090, 5107756, 5412359, 7696239 #### [facility] [address] [place] [address] MCHC (RBC) [Mass/Vol] 33.0 g/dL Normal 31.4-36.0 [facility] Comment on above: Performed By: #### 2 314606, 2292754, 5178751, 24132630, 3373535, 58936780, 0212713, 0513026, 7682370 #### [facility] [address] [place] [address] MCV (RBC) [Entitic vol] 89.1 fL Normal 80.0-100.0 [facility] Comment on above: Performed By: #### 2 442931, 0505533, 0572444, 76468268, 3556225, 15681532, 0916423, 2634734, 6978932 #### [facility] [address] [place] [address] Platelet mean volume (Bld) [Entitic vol] 9.8 fL Normal 6.4-10.8 [facility] Comment on above: Performed By: #### 2 868812, 3236541, 7948404, 59934029, 4370432, 17874294, 9305429, 1343974, 7321403 #### [facility] [address] [place] [address] Platelets (Bld) [#/Vol] 204.0 E9/L Normal 150.0-500.0 [facility] Comment on above: Performed By: #### 2 775233, 0492140, 1144965, 06654412, 0977755, 08529604, 6484297, 3523078, 1592440 #### [facility] [address] [place] [address] RBC (Bld) [#/Vol] 4.8 E12/L Normal 4.3-5.9 [facility] Comment on above: Performed By: #### 2 939065, 4213505, 7824893, 84098469, 4529614, 41381028, 4444415, 3220561, 4950352 #### [facility] [address] [place] [address] WBC corrected for nucl RBC Auto (Bld) [#/Vol] 9.8 E9/L Normal 4.0-11.0 [facility] Comment on above: Performed By: #### 2 469848, 5839445, 6108219, 58980865, 2520726, 62116905, 9767363, 4112038, 7603121 #### [facility] [address] [place] [address] CT Head or Brain w/o Contras ton [...] MD Transcribed by: OVI Technologist: DENZEL Sam [facility] CT Maxillofacial w/o Contras ton 12-17-2022 [...] Busby DO Transcribed by: OVI Technologist: DENZEL [facility] Consent for Treatmenton 12-08 Consent for Treatment [id number]#1.00TIFF [facility] Discharge Instructionson Discharge Instructions [id number]#1.00TIFF [facility] ED Clinical Summaryon 2022 ED Clinical Summary (Inserted Image. Benita ble to display) [place] [id number] ED Clinical Summary Person Information Name: PARK GUIDRY[facility] Age: 82 Years : 1940 Sex: Male Language: Grenadian PCP: ALPESH DUNN DO Marital Status: MRN: [...] 15:25:39 12/17/2022 15:25:39 12/17/2022 15:25:39 AD[address]: [id number] [facility] [address] PHYS DOC NOTES: MEDICAL INFORMATION: Prescriptions Given: [...] PATIENT EDUCATION INFORMATION: Instructions: Laceration Care, Adult, Kvwo-he-Qtso; Head Injury, Adult, Evjd-jr-Uosx; Finger Sprain, Adult, Omnk-eu-Vabl; Abrasion, Vfjn-pm-Bjnl Follow up: With: Address: When: ALPESH DUNN [address] [place] [address] [facility] (1) In 3 days 12/20/2022 [...] Scalp laceration; Sprain of right thumb Normal [facility] ED Note-Physicianon 12-18-19 ED Note-Physician Basic [...] and Complexity of Problems Differential Diagnosis: [] [facility] Data External documents reviewed: [] My EKG [...] Abrasion of (more content not included)... 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 ? Do not usedisinfectants or antiseptics, such [...] these instructions at home: Medicines ? Take aiys-dgq-xitauhk and prescription medicines only as told by [...] laceration i (more content not included)... Normal [facility] ED Patient Summaryon 023 ED Patient Summary (Inserted Image. Benita ble to display) [place] [id number] Patient Discharge Instructions Person Information Name: PARK GUIDRY Age: 82 Years Arrival Date: 12/17/2022 13:02:23 Discharge Diagnosis: Closed head injury; Nasal abrasion; Scalp laceration; Sprain of right thumb Primary Care Physician: ALPESH DUNN DO Provider Information Primary Provider: Yael Agrawal M.D. Advanced [place] Rug Setter:None The exam and treatment you received in the Emergency Department were for an urgent problem and are not intended as complete care. It is important that you follow up with a doctor, nurse practitioner, or physician?s graduate research assistant for ongoing care. If your symptoms become [...] Instructions: With: Address: When: ALPESH DUNN [address] [place] [address] [facility] (1) In 3 days 12/20/2022 Comments: Follow-up with your primary care provider in 3 to 5 days. If symptoms worsen, do not improve, or new symptoms arise please report back to emergency department for further evaluation. [place] to be removed in 10 days. Keep the area dry for 2 days, then may use soap and water to clean around the area. In the event that this physician does not participate in your insurance network, please consult with your insurance company to find a nearby participating provider. Patient Education Materials: Laceration Care, Adult, Kdxp-ax-Fpcq; Head Injury, Adult, Plyk-rc-Ljmk; Finger Sprain, Adult, Wzcl-bk-Jbmw; Abrasion, Covp-uz-Wlya A MESSAGE TO ALL PATIENTS REGARDING OPIOIDS PRESCRIPTION OPIOIDS: WHAT YOU NEED TO KNOW Prescription opioids can be used to help relieve qenkukge-nj-sxwgzb pain and are often prescribed following a [...] Find y (more content not included)... Normal [facility] ED Traumaon 12-17-2022 ED Trauma [id number]#1.00TIFF Normal [facility] Ethanolon 12-17-2022 Ethanol [Mass/Vol] mg/dL Normal <=7 [facility] Comment on above: Performed By: #### 2 317362 #### [facility] [address] [place] [address] Hep Func Panelon 12-17-2022 Albumin [Mass/Vol] 3.7 g/dL Normal 3.3-5.0 [facility] Comment on above: Performed By: #### 2 878569, 7001160, 5294495, 23322086, 7154255, 88495339, 8803570, 1796204, 0671321 ####[facility] [address] [place] [address] Albumin/Globulin (S) [Mass conc ratio] 1.0 Low 1.1-2.2 [facility] Comment on above: Performed By: #### 2 288107, 2104094, 9549309, 15809355, 3344030, 40426032, 0575992, 4300753, 9922202 ####[address] [place] [address] ALP [Catalytic activity/Vol] 85 Int._Unit/L Normal 21-98 [facility] Comment on above: Performed By: #### 2 408417, 2464986, 7894578, 89338331, 3319404, 24763244, 5069679, 4444855, 9486656 ####[address] [address] ALT No additional P-5'-P [Catalytic activity/Vol] 14 Int._Unit/L Normal 6-46 [facility] Comment on above: Performed By: #### 2 763077, 5699743, 3829898, 93586773, 5914016, 39171376, 1046795, 3491809, 9940552 ####[address] [address] AST [Catalytic activity/Vol] 18 Int._Unit/L Normal 5-43 [facility] Comment on above: Performed By: #### 2 944514, 6598612, 5639511, 78458214, 1072044, 63712131, 1470172, 7034700, 8846204 ####[address] [place] [address] Bilirubin [Mass/Vol] 0.7 mg/dL Normal 0.0-1.1 [facility] Comment on above: Performed By: #### 2 547525, 0190775, 5805617, 87474350, 0840379, 22935419, 0644233, 0787047, 8513816 ####[address] [place] [address] Bilirubin.direct [Mass/Vol] 0.1 mg/dL Normal 0.1-0.4 [facility] Comment on above: Performed By: #### 2 073904, 1257435, 2613959, 02936525, 9019482, 32794852, 8281956, 6774969, 1741434 ####[address] [place] [address] Bilirubin.indirect [Mass or moles/Vol] 0.6 mg/dL Normal 0.1-0.9 [facility] Comment on above: Performed By: #### 2 559193, 2853515, 4242363, 70708410, 3501793, 96363600, 1142248, 2218716, 4605034 ####[address] [address] Globulin (S) [Mass/Vol] 3.8 g/dL Normal 1.4-4.0 [facility] Comment on above: Performed By: #### 2 947481, 1253754, 8440722, 62137294, 3653772, 23328787, 7447211, 8536347, 8999521 ####[address] [place] [address] Protein [Mass/Vol] 7.5 g/dL Normal 6.0-7.8 [facility] Comment on above: Performed By: #### 2 030341, 3737680, 1268235, 02509507, 0361453, 28665990, 7631369, 4823226, 1136895 ####[address] [place] [address] Lactic Acidon 12-17-2022 Lactate [Mass/Vol] 1.7 mmol/L Normal 0.5-2.2 [facility] Comment on above: Performed By: #### 2 102165, 1156328, 8286565, 25027453, 6536268, 43919772, 9283788, 6426392, 0285225 ####[facility] [address] [place] [address] Lipase Levelon 12-17-2022 Lipase [Catalytic activity/Vol] 22 U/L Normal 13-58 [facility] Comment on above: Performed By: #### 2 057696, 0481747, 6549141, 64318673, 0808393, 21901757, 4783597, 9606804, 9514195 ####[facility] [address] [place] [address] PT & PTTon 12-17-2022 aPTT Coag (PPP) [Time] 31.6 second(s) Normal 25.1-36.5 [facility] Comment on above: Result Comment: Para [...] the same coagulation reagent and instrumentation [place] [facility] Currently there are no coagulation studies available worldwide for children to 14 days, and no normal ranges. Heparin therapeutic range (represented by Anti-Factor Xa activity of 0.2 - 0.4 U/mL) corresponds to PTT of 56.6 - 109.0 sec. Performed By: #### 2 620995, 8305531, 0912214, 58795057, 9616413, 23781380, 1797003, 8158633, 4694255 #### [facility] [address] [place] [address] INR Coag (PPP) [Relative time] 1.2 {INR} Invalid Interpretation Code [facility] Comment on above: Result Comment: INR results are specifically intended to assess patients stabilized on long-term Anticoagulation therapy suggested INR?s ?Less Intensive Anticoagulation? 2.0 ? 3.0 Conventional Range 3.0 ? 4.5 Performed By: #### 2 707472, 8555860, 2921478, 52473236, 9392355, 81310485, 4071776, 7780322, 2813834 #### [facility] [address] [place] [address] PT Coag (PPP) [Time] 13.1 second(s) High 9.4-12.5 [facility] Comment on above: Result Comment: 15 [...] the same coagulation reagent and instrumentation as [facility] Currently there are no coagulation studies available worldwide for children to 14 days, and no normal ranges. Performed By: #### 2 140300, 8698124, 0282560, 52851776, 5600990, 82572156, 7599377, 9899664, 7796519 #### [facility] [address] [place] [address] Pre-Arrival Noteon 3 Pre-Arrival Note Pre-Arrival Summary Name: , NEO Current Date: 12/17/2022 13:08:12 EST Gender: Male Date of : Age: 82 Pre-Arrival Type: EMS ETA: 12/17/2022 13:00:00 EST Primary Care Physician: Presenting Problem: head trauma Pre-Arrival User: Riri Yoder RN Referring Source: Location: Completion Date/Time: 12/17/2022 12:52:00 [facility] Emergency Department Pre-Hospital Report Form _ Vital Signs: Pre-Hospital Report: Treatment in Route: Response to Treatment: Misc. Issues: Normal [facility] Troponinon 12-17-2022 Troponin I.cardiac [Mass/Vol] 22.50 pg/mL Normal 15.90-38.40 [facility] Comment on above: Result Comment: The 95% CI (Confidence Interval) PPV (Positive Predictive Value) for myocardial infarction in females is 38 pg/mL, in males 51 pg/mL. The results should be used in conjunction with clinical conditions of myocardial infarction. (Access High Sensitivity Troponin I Instructions For Use, Lissett Maykel, September 2017) Performed By: #### 2 222723, 5587342, 3770404, 60789221, 7593046, 14753191, 3998763, 9258361, 7502539 ####[facility] [address] [place] [address] Vaccinationson 12-17-2022 Vaccinations [id number]#1.00TIFF Normal [facility] XR Chest Single Viewon 12-17 XR [...] mGy = na DAP = na Normal [facility] XR Finger(s) Min 2 Views Rig [...] mGy = na DAP = na Normal [facility] eGFRon 12-17-2022 GFR/1.73 sq M.predicted among non-blacks MDRD (S/P/Bld) [Vol rate/Area] 87 mL/min/1.73 m2 Normal >=59 [facility] Comment on above: Order Comment: Order added by Discern Expert. Result Comment: Quarter Folder valencia kidney disease could be indicated at eGFR's of less than 60 mL/min/1.73m2. Kidney failure is indicated at less than 15 mL/min/1.73m2. Performed By: #### 2 632451, 1027004, 0733958, 21787794, 2752168, 89450002, 9629898, 5084356, 4091327 #### [facility] [address] [place] [address] Retail - Clinical Noteon Retail - Clinical Note [id number]#1.00TIFF Normal [facility] Formson 11-25-2022 Forms [id number]#1.00TIFF Normal [facility] Retail - Clinical Noteon Retail - Clinical Note [id number]#1.00TIFF Normal [facility] Lab Reportson 10-31-2022 Lab Reports [id number]#1.00CD:127 Normal [facility] TESTOSTERONE, TOTALon 2021 Testosterone [Mass/Vol] ng/dL Critically low 264-916 [facility] Comment on above: Result Comment: Adul t male reference interval is based on a population of healthy nonobese males (BMI <30) between 19 and 39 years old. Mars et.al. JCEM 2017,102;1941-7946. PMID: 99579201. Performed By: #### T ESTTOT #### [facility] [address] [place] [address] Dr. Adrianna Luevano US REX DOP LEG [...] DANDY SANCHEZ Date: 2021-08-11 17:55 Normal [facility] CBC AUTO DIFFon 07-22-2021 BASO # 0.0 103/ul Normal 0.0-0.1 [facility] Comment on above: Performed By: #### C BC #### [facility] [address] [place] [address] Dr. Adrianna Luevano Basophils/100 WBC (Bld) 0.5 % Normal 0.2-2.0 [facility] Comment on above: Performed By: #### C BC #### [facility] [address] [place] [address] Dr. Adrianna Luevano EO # 0.5 103/ul Normal 0.0-0.7 [facility] Comment on above: Performed By: #### C BC #### [facility] [address] [place] [address] Dr. Adrianna Luevano Eosinophils/100 WBC (Bld) 6.2 % Normal 0.9-7.0 [facility] Comment on above: Performed By: #### C BC #### [facility] [address] [place] [address] Dr. Adrianna Luevano Erythrocyte distribution width (RBC) [Ratio] 13.6 % Normal 11.0-15.0 [facility] Comment on above: Performed By: #### C BC #### [facility] [address] [place] [address] Dr. Adrianna Luevano Hematocrit (Bld) [Volume fraction] 45.9 % Normal 42.0-54.0 [facility] Comment on above: Performed By: #### C BC #### [facility] [address] [place] [address] Dr. Adrianna Luevano Hemoglobin (Bld) [Mass/Vol] 15.2 g/dL Normal 14.0-18.0 [facility] Comment on above: Performed By: #### C BC #### [facility] [address] [place] [address] Dr. Adrianna Luevano IG # 0.04 10e3/ul Critically high 0.00-0.03 [facility] Comment on above: Performed By: #### C BC #### [facility] [address] [place] [address] Dr. Adrianna Luevano IG % 0.5 % Normal 0.0-0.5 [facility] Comment on above: Performed By: #### C BC #### [facility] [address] [place] [address] Dr. Adrianna Luevano LYMPH # 1.2 103/ul Normal 1.2-3.8 [facility] Comment on above: Performed By: #### C BC #### [facility] [address] [place] [address] Dr. Adrianna Luevano Lymphocytes/100 WBC (Bld) 13.7 % Critically low 20.5-60.0 [facility] Comment on above: Performed By: #### C BC #### [facility] [address] [place] [address] Dr. Adrianna Luevano MANUAL DIFF REQ NO Normal [facility] Comment on above: Performed By: #### C BC #### [facility] [address] [place] [address] Dr. Adrianna Luevano MCH (RBC) [Entitic mass] 29.9 pg Normal 25.9-34.0 [facility] Comment on above: Performed By: #### C BC #### [facility] [address] [place] [address] Dr. Adrianna Luevano MCHC (RBC) [Mass/Vol] 33.1 g/dL Normal 29.9-35.2 [facility] Comment on above: Performed By: #### C BC #### [facility] [address] [place] [address] Dr. Adrianna Luevano MCV (RBC) [Entitic vol] 90.4 fL Normal 80.0-94.0 [facility] Comment on above: Performed By: #### C BC #### [facility] [address] [place] [address] Dr. Adrianna Luevano MONO # 1.1 103/ul Critically high 0.3-0.8 [facility] Comment on above: Performed By: #### C BC #### [facility] [address] [place] [address] Dr. Adrianna Luevano Monocytes/100 WBC (Bld) 12.6 % Critically high 1.7-12.0 [facility] Comment on above: Performed By: #### C BC #### [facility] [address] [place] [address] Dr. Adrianna Luevano NEUT # 5.7 103/ul Normal 1.4-6.5 [facility] Comment on above: Performed By: #### C BC #### [facility] [address] [place] [address] Dr. Adrianna Luevano Neutrophils/100 WBC (Bld) 66.5 % Normal 43.0-75.0 [facility] Comment on above: Performed By: #### C BC #### [facility] [address] [place] [address] Dr. Adrianna Luevano Platelet mean volume (Bld) [Entitic vol] 11.3 fL Normal 9.5-13.5 [facility] Comment on above: Performed By: #### C BC #### [facility] [address] [place] [address] Dr. Adrianna Luevano PLT 183 103/ul Normal 150-450 [facility] Comment on above: Performed By: #### C BC #### [facility] [address] [place] [address] Dr. Adrianna Luevano RBC 5.08 106/ul Normal 4.70-6.10 [facility] Comment on above: Performed By: #### C BC #### [facility] [address] [place] [address] Dr. Adrianna Luevano WBC 8.6 103/ul Normal 4.0-11.0 [facility] Comment on above: Performed By: #### C BC #### [facility] [address] [place] [address] Dr. Adrianna Luevano PROF CHEM 8 (BAS METB)on Anion gap [Moles/Vol] 13.4 mmol/L Normal [facility] Comment on above: Performed By: #### B MP #### [facility] [address] [place] [address] Dr. Adrianna Luevano Calcium [Mass/Vol] 8.9 mg/dL Normal 8.5-10.1 [facility] Comment on above: Performed By: #### B MP #### [facility] [address] [place] [address] Dr. Adrianna Luevano Chloride [Moles/Vol] 106 mmol/L Normal 98-107 [facility] Comment on above: Performed By: #### B MP #### [facility] [address] [place] [address] Dr. Adrianna Luevano CO2 [Moles/Vol] 23.1 mmol/L Normal 21.0-32.0 [facility] Comment on above: Performed By: #### B MP #### [facility] [address] [address] [address] Adrianna Luevano Creatinine [Mass/Vol] 0.87 mg/dL Normal 0.70-1.30 [facility] Comment on above: Performed By: #### B MP #### [facility] [address] [address] [address] Adrianna Luevano EGFR-AF GUATEMALAN >60 Normal >=60 [facility] Comment on above: Performed By: #### B MP #### [facility] [address] [address] [address] Adrianna Luevano EGFR-NON AF GUATEMALAN >60 Normal >=60 [facility] Comment on above: Performed By: #### B MP #### [facility] [address] [place] [address] Dr. Adrianna Luevano Glucose [Mass/Vol] 104 mg/dL Normal 74-106 [facility] Comment on above: Performed By: #### B MP #### [facility] [address] [address] [address] Adrianna Luevano Potassium [Moles/Vol] 4.5 mmol/L Normal 3.5-5.1 [facility] Comment on above: Performed By: #### B MP #### [facility] [address] [address] [address] Adrianna Luevano Sodium [Moles/Vol] 138 mmol/L Normal 136-145 [facility] Comment on above: Performed By: #### B MP #### [facility] [address] [address] [address] Adrianna Luevano Urea nitrogen [Mass/Vol] 22.0 mg/dL Critically high 7.0-18.0 [facility] Comment on above: Performed By: #### B MP #### [facility] [address] [place] [address] Dr. Adrianna Luevano Urea nitrogen/Creatinine [Mass ratio] 25.3 mg/mg Normal [facility] Comment on above: Performed By: #### B #### [facility] [address] [address] [address] Adrianna Luevano XR CHEST 2 Von [...] DANDY SANCHEZ Date: 2021-05-20 15:58 Normal [facility] CNOVon 08-17-2017 CNOV Office Visit (RADTSA) BREAOUSMANE Man ([id number]) 1940 MDate Time Provider Department08/17/17 10:00 AM [...] 7 (grade group 3), clinical stage IIB [id number] SUMMARY:DATES OF TREATMENT: external beam: 10/18/16-, prostate kpvasifraxztb08/16/17?AREA TREATED: Pelvis/Prostate4,500cGy in 25 fractions, 3 Vivas, [...] 7 (grade group 3), clinical stage IIB [id number] overall doing well with excellent PSA response. No significantposttreatment problems. Plan to have patient back for follow-up exam in 6months.He continues close follow-up with his urologist Dr. Garcia including PSAevaluation.Signed by: Marylou Pagan, [facility]:Alpesh Dunn MD (Dr)[address], [place] [address]Lzqth: [phone]: [phone] Provider: Marylou PAGAN [[id number]]Allergies As of Date: 08/17/2017(No Known Allergies)Date Reviewed: 08/17/2017Reviewed by: Chino ([facility]) Tom - Fully AssessedReason for Visit: Follow [...] (around 02/17/2018).Follow-up and Disposition History RecordedEncounter Number: [id number] Status:Closed by Marylou PAGAN MD on 08/19/17 [facility] CNOVSPon 08-17-2017 CNOVS Visit (SP) Office (HEMASA) OUSMANE GUIDRY ([id number]) 1940 MDate Time Provider Department08/17/17 10:30 AM CHINO MCGINNIS (CLERICAL OFFICE WORKER) LATISHA During your visit today, we recorded the following information about you: Blood pressure Weight 140/82 94.8 kgReferring Provider: Marylou PAGAN [[id number]]Allergies As of Date: 08/17/2017(No Known Allergies)Date Reviewed: 08/17/2017Reviewed by: Chino (Water Quality Control Engineer) Tom - Fully AssessedReason for Visit: Cancer [...] [Z85.46] INVALID FOR*Encounter Status:Closed by CHINO MCGINNIS CLERICAL OFFICE WORKER on 08/17/17 Normal [facility] PROGRESSon 08-17-2017 Protein HNO ID: [id number] thor: Marylou Matamorosice: (none)Author Type: PhysicianType: Progress NotesFiled: 08/19/2017 12:57 PMNote Text:Radiation Oncology - Follow Up NotePATIENT NAME: Park Aldrich : Prostate adenocarcinoma, 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 No significantposttreatment problems. Plan to have patient back for follow-up examin 6 months.He continues close follow-up with his urologist Dr. Garcia including PSAevaluation.Signed by: Marylou Pgaan, [facility]:Alpesh Dunn MD ([facility])[address], [place] [address]Ecvfu: [phone]: [phone] [facility] CNOVon 02-02-2017 CNOV Office Visit (RADTSA) BREAOUSMANE ([id number]) 1940 [facility] Time Provider Bxeldhetdh62/27/17 10:45 AM Marylou PAGAN During your visit today, we recorded the following information about you: Weight 93 kgJames Rowell LPN, RN 02/02/2017 10:59 AM SignedAUA= 22G Keyshawn Pagan MD 02/03/2017 3:29 PM SignedRadiation Oncology - Follow Up NotePATIENT NAME: Park Aldrich : Prostate adenocarcinoma, 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, biopsy Pj score 4+ 3 = 7 (grade group 3), clinical stage IIB [id number] SUMMARY:DATES OF TREATMENT: external beam: 10/18/16-, prostate rcpyevhecbdtd91/16/17?AREA TREATED: Pelvis/Prostate4,500cGy in 25 fractions, 3 Vivas, [...] 7 (grade group 3), clinical stage IIB P4kS3O8Mbdkcnc overall doing well with improving post-implant urinary issues. Goodinitial PSA response. No modification in the follow-up or treatment plan basedon post-implant CT. Plan to have patient back for follow-up exam in 6 months.He continues close follow-up with his urologist Dr. Garcia with furtherschedule PSA the spring.Signed by: Marylou Pagan [facility]:Alpesh Dunn MD (DrC)[address] [place] [address]Xkytc: [phone]: [phone] Provider: Marylou PAGAN [[id number]]Allergies As of Date: 02/02/2017(No Known Allergies)Date Reviewed: 02/02/2017Reviewed by: James Rowell RN - Fully AssessedReason for Visit: Follow Up [171]Primary Visit Diagnosis:Prostate cancer (HCC) [C61]Order(s):PSA (OUTSIDE) [6841215] Order #: [id number] as of 02/02/2017 Sig: TAMSULOSIN 0.4 MG [...] history recordedFollow-up and Disposition History RecordedEncounter Number: [id number] Status:Closed by Marylou PAGAN MD on 02/03/17 [facility] PROGRESSon 02-02-2017 Protein HNO ID: [id number] thor: Marylou Lovellervice: (none)Author Type: PhysicianType: Progress NotesFiled: 02/03/2017 3:29 PMNote Text:Radiation Oncology - Follow Up NotePATIENT NAME: Park Aldrich : Prostate adenocarcinoma, 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, biopsy Gleasonscore 4 + 3 = 7 (grade group 3), clinical stage IIB [id number] SUMMARY:DATES OF TREATMENT: external beam: 10/18/16-, prostatebrachytherapy [...] 7 (grade group 3), clinical stage IIB L3cY1Q9Ftwztmo overall doing well with improving post-implant urinary issues.Good initial PSA response. No modification in the follow-up or treatmentplan based on post-implant CT. Plan to have patient back for follow-up exam in 6 months.He continues close follow-up with his urologist Dr. Garcia with furtherschedule PSA the spring.Signed by: Marylou Pagan [facility]:Alpesh Dunn MD (DrC)[address] [facility] [place] [address]Xxytv: [phone]: [phone] Normal [facility] CNOVon 01-05-2017 CNOV Office Visit (RADTSA) OUSMANE GUIDRY ([id number]) 1940 MDate Time Provider Vfxpxiwhtu71/29/17 10:45 AM Marylou PAGAN During your visit today, we recorded the following information about you: Blood pressure Weight 152/82 91.2 kgAyala Gross 01/05/2017 11:08 AM SignedAUA Score: 20Kylie CammyTirso Keyshawn Pagan MD 01/07/2017 10:28 AM SignedRadiation Oncology - Follow Up NotePATIENT NAME: Park Aldrich : Prostate adenocarcinoma, 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, biopsy Fairlee score 4+ 3 = 7 (grade group 3), clinical stage IIB [id number] SUMMARY:DATES OF TREATMENT: external beam: 10/18/16-, prostate blpsaukfarjdy35/16/17?AREA TREATED: Pelvis/Prostate4,500cGy in 25 fractions, 3 Vivas, [...] 7 (grade group 3), clinical stage IIB R0kU2E9Vkuotkl overall doing well with improving post-implant urinary issues. Noother new problems. Plan to have patient back in 2 weeks for post-implant CT,return for follow-up exam in 4 weeks.He continues close follow-up with his urologist Dr. Garcia as well.Signed by: Marylou Pagan, [facility]:Alpesh Dunn MD ([facility])[address], [place] [address]Gjecd: [phone]: [phone] Provider: Marylou PAGAN [[id number]]Allergies As of Date: 01/05/2017(No Known Allergies)Date Reviewed: 01/05/2017Reviewed by: Ayala Gross - Fully AssessedReason for Visit: Prostate Cancer [590] Cmt: 2 week post seed implant follow-upPrimary Visit Diagnosis:Prostate cancer (HCC) [C61]Order(s):PSA/PROSTSPE CAG DIAG [SQPSA] Order #: [id number] FUTUREPrescriptions as of 01/05/2017 Sig: ALPRAZOLAM 0.25 MG TABLET MELOXICAM 15 MG TABLET DOXAZOSIN 2 MG TABLETProblem List As Of Date 01/05/2017 Noted Resolved Prostate cancer (HCC) [C61] INVALID FOR*Visit Notes:>> Ayala Gross Wed Jan 05, 2017 11:01 AM Status: SignedAUA Score: 20Kyjose alfredo GrossFollow-up and Disposition History RecordedEncounter Number: [id number] Status:Closed by Marylou PAGAN MD on 01/07/17 Normal [facility] PROGRESSon 01-05-2017 Protein HNO ID: [id number] thor: Marylou QuinterorService: (none)Author Type: PhysicianType: Progress NotesFiled: 01/07/2017 10:28 AMNote Text:Radiation Oncology - Follow Up NotePATIENT NAME: Park Aldrich : Prostate adenocarcinoma, 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, biopsy Gleasonscore 4 + 3 = 7 (grade group 3), clinical stage IIB [id number] SUMMARY:DATES OF TREATMENT: external beam: 10/18/16-, prostatebrachytherapy [...] 7 (grade group 3), clinical stage IIB Q8xI4R3Jmzqohr overall doing well with improving post-implant urinary issues. Noother new problems. Plan to have patient back in 2 weeks for post-implantCT, return for follow-up exam in 4 weeks.He continues close follow-up with his urologist Dr. Garcia as well.Signed by: Marylou Pagan [facility]:Alpesh Dunn MD (DrC)[address], [place] [address]Twlzv: [phone]: [phone] Normal [facility] CNOVon 12-23-2016 CNOV Office Visit (RADTSA) YIFANOUSMANE Middleton ([id number]) 1940 MDate Time Provider Rzlttuijwo11/16/17 8:00 AM Marylou PAGAN During your visit today, we recorded the following information about you:Marylou Pagan MD 01/26/2017 11:01 AM SignedDate: 12/23/16[facility] transperineal brachytherapy implantSources: Pd-103Anesthesia:Kandice ologist: [...] area. No excess activity seen,results documented.?Alvarado Pagan MD?[facility] HospitalReferring Provider: Marylou PAGAN [[id number]]Allergies As of Date: 12/23/2016(No Known Allergies)Date Reviewed: 11/15/2016Reviewed by: Phoebe (Rn) LAQUITA Segura - Fully AssessedPrimary Visit Diagnosis:Prostate cancer (HCC) [C61]Prescriptions as of 12/23/2016 Sig: ALPRAZOLAM 0.25 MG TABLET MELOXICAM 15 MG TABLET DOXAZOSIN 2 MG TABLETProblem List As Of Date 12/23/2016 Noted Resolved Prostate cancer (HCC) [C61] INVALID FOR*Follow-up and Disposition History RecordedEncounter Number: [id number] Status:Closed by Marylou PAGAN MD on 01/26/17 Normal [facility] PROGRESSon 12-23-2016 Protein HNO ID: [id number] thor: Marylou Lovellervice: (none)Author Type: PhysicianType: Progress NotesFiled: 01/26/2017 11:01 AMNote Text:Date: 12/23/16[facility] transperineal brachytherapy implantSources: Pd-103Anesthesia:generalUr ologist: Dr. [...] area. No excessactivity seen, results documented.?Alvarado Pagan MD?[facility] PROGRESSon 12-10-2016 Protein HNO ID: [id number] thor: Marylou Lovellervice: (none)Author Type: PhysicianType: Progress [...] planning volume using Pd-103 sources.Marylou Pagan MD [facility] CNOVon 12-07-2016 CNOV Office Visit (RADTSA) OUSMANE GUIDRY ([id number]) 1940 [facility] Khpvjwpoti51/31/17 8:00 AM Marylou PAGAN During your visit [...] volumeusing Pd-103 sources.ALVA Schaffereferring Provider: Marylou PAGAN [[id number]]Allergies As of Date: 12/07/2016(No Known Allergies)Date Reviewed: 11/15/2016Reviewed by: Phoebe (Rn) LAQUITA Segura - Fully AssessedReason for Visit: Volume Study [4052]Primary Visit Diagnosis:Prostate cancer (HCC) [C61]Prescriptions as of 12/07/2016 Sig: ALPRAZOLAM 0.25 MG TABLET MELOXICAM 15 MG TABLET DOXAZOSIN 2 MG TABLETProblem List As Of Date 12/07/2016 Noted Resolved Prostate cancer (HCC) [C61] INVALID FOR* Status:Closed by Marylou PAGAN MD on 12/10/16 Normal [facility] PROGRESSon 11-19-2016 Protein HNO ID: [id number] thor: Marylou Lovellervice: (none)Author Type: PhysicianType: Progress NotesFiled: 11/24/2016 12:36 AMNote Text:[facility] SandrockfordyRadiation Oncology DepartmentRADIATION ONCOLOGY - COMPLETION NOTEPATIENT: ALVINA GUIDRY: 1940DATES OF TREATMENT: 10/18/16-DIAGNOSIS : Prostate adenocarcinoma, 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, biopsy Gleasonscore 4 + 3 = 7 (grade group 3), clinical stage IIB J8xP0A0 AREATREATED: Pelvis/ProstateDELIVERED DOSE: Pelvis/Prostate:4,500cGy in 25 fractions, [...] 12/07/16 and interstitial prostateimplant scheduled 12/23/16 at [facility].Electronically SignedKeyshawn Pagan M.D. / CDT12:20 [facility]:Dr. WatersDr. Dunn [facility] CNOVon 11-15-2016 CNOV Office Visit (RADTSA) PEPITONAVJOTJASWINDEROUSMANE Middleton ([id number]) 1940 MDate Time Provider Facjjnlvnr28/9/17 9:00 AM Marylou PAGAN During your visit today, we recorded the following information about you: Blood pressure Weight 142/82 91.9 kgG Keyshawn Pagan MD 11/15/2016 10:14 AM SignedRadiation Oncology - On Treatment Review (OTR) NotePATIENT NAME: Park Aldrich :Prostate cancer (HCC) - ICD9: 185, ICD10: U19Fdmazkqb adenocarcinoma, 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, ?biopsy Fairlee score 4 + 3 = 7(grade group 3), ?clinical stage IIB D2uR3U4, s/p TRUS-biopsy?COURSE: DefinitiveCurrent dose: 3780 cGy in [...] Status:Closed by Marylou PAGAN MD on 11/15/16 [facility] PROGRESSon 11-15-2016 Protein HNO ID: [id number] thor: Marylou Lovellervice: (none)Author Type: PhysicianType: Progress NotesFiled: 11/15/2016 10:14 AMNote Text:Radiation Oncology - On Treatment Review (OTR) NotePATIENT NAME: Park Aldrich :Prostate cancer (HCC) - ICD9: 185, ICD10: T76Lgmzglee adenocarcinoma, 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, ?biopsy Pj score 4 + 3 =7 (grade group 3), ?clinical stage IIB R9lQ2C8, s/p TRUS-biopsy?COURSE: DefinitiveCurrent dose: 3780 cGy in [...] imaging reviewed. Continueradiation as outlined.Marylou Pagan MD [facility] CNOVmarlin 11-11-2016 CNOV Office Visit (RADTSA) OUSMANE GUIDRY ([id number]) 1940 MDate Time Provider Uupmgokffg39/5/17 8:45 AM LAB/PORT АЛЕКСАНДРT MONI MCKENZIE During [...] [C61] INVALID FOR*Visit Notes:>> James Rowell RN [facility] Nov 11, 2016 9:06 AM Status: Dwight Guidry presents in office today for: Lab Draw only .Ordering Provider: Alvarado Pagan M.D.Test (s) ordered:CBCMethod for obtaining blood: Phlebotomy was performed, accessing leftantecubital vein.Needle removed intact. Dressing secured.Patient denies discomfort, dizziness, light-headedness or weakness andleft the department without assist.Any Nguyễn Number: [id number] Status:Closed by JAMES ROWELL on 11/11/16 Normal [facility] Remote Abs Gran + CBC (for F HC use only)on 11-11-2016 Absol Gran Count 3.36 k/uL Normal 1.45-7.50 [facility] Erythrocyte distribution width Auto Ratio (RBC) 13.8 % Normal 11.5-15.0 [facility] Erythrocytes (RBC) 4.71 10*6/uL Normal 4.20-6.00 [facility] Hematocrit (HCT) 41.8 % Normal 39.0-51.0 [facility] Hemoglobin mass conc (Bld) 14.3 g/dL Normal 13.0-17.0 [facility] MCH 30.4 pG Normal 26.0-34.0 [facility] MCHC mass conc (RBC) 34.2 g/dL Normal 30.5-36.0 [facility] MCV 88.7 fL Normal 80.0-100.0 [facility] Platelet mean volume (PMV) 12.0 fL Normal 9.0-12.7 [facility] Platelets 112 10*3/uL Low 150-400 [facility] WBC (Leukocytes) 5.13 10*3/uL Normal 3.70-11.00 [facility] CNOVon 11-08-2016 CNOV Office Visit (RADTSA) OUSMANE GUIDRY ([id number]) 1940 MDate Time Provider Frvaztjhol33/2/17 9:00 AM Marylou PAGAN During your visit today, we recorded the following information about you: Blood pressure Weight 126/80 92.1 kgG Keyshawn Pagan MD 11/08/2016 1:58 PM SignedRadiation Oncology - On Treatment Review (OTR) NotePATIENT NAME: Park Aldrich :Prostate cancer (HCC) - ICD9: 185, ICD10: M97Glymbqsa adenocarcinoma, 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, ?biopsy Pj score 4 + 3 = 7(grade group 3), ?clinical stage IIB G6yT9Z0, s/p TRUS-biopsy?COURSE: DefinitiveCurrent dose: 2880 cGy in [...] by Marylou PAGAN MD on 11/08/16 Normal [facility] PROGRESSon 11-08-2016 Protein HNO ID: [id number] thor: Marylou Lovellervice: (none)Author Type: PhysicianType: Progress NotesFiled: 11/08/2016 1:58 PMNote Text:Radiation Oncology - On Treatment Review (OTR) NotePATIENT NAME: Park Aldrich :Prostate cancer (HCC) - ICD9: 185, ICD10: F54Xktzwbop adenocarcinoma, 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, ?biopsy Fairlee score 4 + 3 =7 (grade group 3), ?clinical stage IIB C7vJ3C5, s/p TRUS-biopsy?COURSE: DefinitiveCurrent dose: 2880 cGy in [...] imaging reviewed.Continue radiation as outlined.Marylou Pagan MD [facility] PROGRESSon 11-02-2016 Protein HNO ID: [id number] thor: [place] ([facility]) Helene: (none)Author Type: Nurse PractitionerType: Progress NotesFiled: 11/02/2016 2:04 PMNote Text:Radiation Oncology - On Treatment Review (OTR) NotePATIENT NAME: Park Aldrich :Prostate cancer (HCC) - ICD9: 185, ICD10: X17Jhxyqzyl adenocarcinoma, 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, ?biopsy Fairlee score 4 + 3 =7 (grade group 3), ?clinical stage IIB W0hG7M3, s/p TRUS-biopsy?COURSE: DefinitiveCurrent dose: 1,980 cGy in [...] coordination and treatment planning.Chino Mcginnis CNP Normal [facility] CNOVon 11-01-2016 CNOV Office Visit (RADTSA) OUSMANE GUIDRY ([id number]) 1940 MDate Time Provider Department11/01/16 9:00 AM BOB LIU During your visit today, we recorded the following information about you: Blood pressure Weight 134/74 92.5 kgChino Mcginnis CNP 11/02/2016 2:04 PM SignedRadiation Oncology - On Treatment Review (OTR) NotePATIENT NAME: Park Aldrich :Prostate cancer (HCC) - ICD9: 185, ICD10: D43Nxqpgvfj adenocarcinoma, 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, ?biopsy Pj score 4 + 3 = 7(grade group 3), ?clinical stage IIB Z9kM8W9, s/p TRUS-biopsy?COURSE: DefinitiveCurrent dose: 1,980 cGy in [...] Status:Closed by CHINO MCGINNIS CNP on 11/02/16 [facility] CNOVon 10-28-2016 CNOV Office Visit (RADTSA) BREAOUSMANE Man ([id number]) 1940 MDate Time Provider Department10/28/16 1:10 PM [...] [C61] INVALID FOR*Visit Notes:>> Phoebe Segura RN [facility] Oct 28, 2016 1:16 PM Status: Dwight Guidry presents in office today for: Lab Draw during OfficeVisit .Ordering Provider: Keyshawn Pagan M.D.Test (s) ordered:CBCMethod for obtaining blood: Phlebotomy was performed, accessing leftantecubital vein.Needle removed intact. Dressing secured.Patient denies discomfort, dizziness, light-headedness or weakness andleft the department without assist.Phoebe Segura RNEncounter Number: [id number] Status:Closed by PHOEBE SEGURA on 10/28/16 Normal [facility] Remote Abs Gran + CBC (for F HC use only)on 10-28-2016 Absol Gran Count 5.02 k/uL Normal 1.45-7.50 [facility] Erythrocyte distribution width Auto Ratio (RBC) 13.6 % Normal 11.5-15.0 [facility] Erythrocytes (RBC) 4.90 10*6/uL Normal 4.20-6.00 [facility] Hematocrit (HCT) 43.4 % Normal 39.0-51.0 [facility] Hemoglobin mass conc (Bld) 14.6 g/dL Normal 13.0-17.0 [facility] MCH 29.8 pG Normal 26.0-34.0 [facility] MCHC mass conc (RBC) 33.6 g/dL Normal 30.5-36.0 [facility] MCV 88.6 fL Normal 80.0-100.0 [facility] Platelet mean volume (PMV) 12.0 fL Normal 9.0-12.7 [facility] Platelets 136 10*3/uL Low 150-400 [facility] WBC (Leukocytes) 6.89 10*3/uL Normal 3.70-11.00 [facility] PROGRESSon 10-26-2016 Protein HNO ID: [id number] thor: Marylou Matamorosice: (none)Author Type: PhysicianType: Progress NotesFiled: 10/26/2016 2:43 PMNote Text:Radiation Oncology - On Treatment Review (OTR) NotePATIENT NAME: Park Aldrich : Prostate adenocarcinoma, 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, biopsy Gleasonscore 4 + 3 = 7 (grade group 3), clinical stage IIB C5pI8E3, s/pTRUS-biopsyCOURSE: definitiveCurrent dose: 1080 cGy in 6 [...] imaging reviewed.Continue radiation as outlined.Marylou Pagan MD [facility] CNOVon 10-25-2016 CNOV Office Visit (RADTSA) BREAOUSMANE S ([id number]) 1940 [facility] Time Provider Department10/25/16 1:15 PM aMrylou PAGAN During your visit today, we recorded the following information about you: Blood pressure Weight 142/68 92.4 kgG Keyshawn Pagan MD 10/26/2016 2:43 PM SignedRadiation Oncology - On Treatment Review (OTR) NotePATIENT NAME: Park Aldrich : Prostate adenocarcinoma, 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, biopsy Fairlee score 4+ 3 = 7 (grade group 3), clinical stage IIB U9tJ3V8, s/p TRUS-biopsyCOURSE: definitiveCurrent dose: 1080 cGy in [...] Status:Closed by Marylou PAGAN MD on 10/26/16 [facility] CNOVon 10-18-2016 CNOV Office Visit (RADTSA) OUSMANE GUIDRY ([id number]) 1940 MDate Time Provider Department10/18/16 9:30 AM Marylou PAGAN During your visit today, we recorded the following information about you: Blood pressure Weight 122/78 91.6 kgG Keyshawn Pagan MD 10/18/2016 10:40 AM SignedRadiation Oncology - On Treatment Review (OTR) NotePATIENT NAME: Park ThomasBrionna : Prostate adenocarcinoma, 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, biopsy Fairlee score 4+ 3 = 7 (grade group 3), clinical stage IIB M7eX1J5, s/p TRUS-biopsyCOURSE: definitiveCurrent dose: 180 cGy in [...] radiation as prescribed.Cuauhtemoc Schaffer Provider: Marylou PAGAN [[id number]]Allergies As of Date: 10/18/2016(No Known Allergies)Date Reviewed: [...] by Marylou PAGAN MD on 10/18/16 Normal [facility] PROGRESSon 10-18-2016 Protein HNO ID: [id number] thor: Marylou Lovellervice: (none)Author Type: PhysicianType: Progress NotesFiled: 10/18/2016 10:40 AMNote Text:Radiation Oncology - On Treatment Review (OTR) NotePATIENT NAME: Park Aldrich : Prostate adenocarcinoma, 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, biopsy Gleasonscore 4 + 3 = 7 (grade group 3), clinical stage IIB L5eN7I4, s/pTRUS-biopsyCOURSE: definitiveCurrent dose: 180 cGy in 25 [...] treatment given. Continue radiation asprescribed.Marylou Pagan MD [facility] CT NON-RADIOLOGY -NBNRo n 10-12-[address] [facility] [address] NON-RADIOLOGY -NBNR [facility] - CT Images - Obtained Outside of Imaging [place] [id number] [facility] CNOVon 10-12-2016 CNOV Office Visit (RADTSA) YIFANOUSMANE Middleton ([id number]) 1940 MDate Time Provider Department10/12/16 2:30 PM Marylou PAGAN During your visit today, we recorded the following information about you:Referring Provider: Marylou PAGAN [[id number]]Allergies As of Date: 10/12/2016(No Known Allergies)Date Reviewed: 10/12/2016Reviewed by: Phoebe (Rn) LAQUITA Segura - Fully AssessedPrimary Visit Diagnosis:Cancer of prostate w/med recur risk (T2b-c or Pj 7 or PSA 10-20) (HCC) [C61] Other Visit Diagnosis:Malignant neoplasm of prostate (HCC) [C61]Order(s):CT SIM PLANNING RADIATION ONCOLOGY [[id number]] Order #: [id number] RADIATION TREATMENT PER RADIATION ONCOLOGIST PLAN [[id number]] Order #: [id number]: 1Prescriptions as of 10/12/2016 Sig: ALPRAZOLAM 0.25 MG TABLET MELOXICAM 15 MG TABLET DOXAZOSIN 2 MG TABLETProblem List As Of Date 10/12/2016 Noted Resolved Prostate cancer (HCC) [C61] INVALID FOR* Status:Closed by Marylou PAGAN MD on 10/13/16 [facility] CNOV Office Visit (RADTSA) OUSMANE GUIDRY ([id number]) 1940 MDate Time Provider Department10/12/16 2:00 PM Marylou PAGAN During your visit today, we recorded the following information about you: Blood pressure Weight 146/76 91.9 kgG Keyshawn Pagan MD 10/15/2016 10:10 AM SignedRadiation Oncology - Follow-Up NotePATIENT NAME: Park HumphreyCARONTAWANNA PROVIDER: Dr. GarciaDIAGNOSIS: 76 year old male with prostate adenocarcinoma, 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,biopsy Fairlee score 4 + 3 = 7 (grade group 3), clinical stage IIB A2qF9I7,s/p TRUS-biopsyHPI: Here today after staging studies as [...] 7 (grade group 3), clinical stage IIB G8vA9Z9, s/p TRUS-biopsyStaging study without evidence of metastatic [...] withpatient. Consent form obtained.Signed by: Marylou Pagan, [facility]:Alpesh Dunn MD ([facility])[address] [place] [address]Cfyec: [phone]: [phone] Provider: Marylou PAGAN [[id number]]Allergies As of Date: 10/12/2016(No Known Allergies)Date Reviewed: 10/12/2016Reviewed by: Phoebe (Rn) LAQUITA Segura - Fully AssessedReason for Visit: Prostate Cancer [590]Primary Visit Diagnosis:Prostate cancer (HCC) [C61]Prescriptions as of 10/12/2016 Sig: ALPRAZOLAM 0.25 MG TABLET MELOXICAM 15 MG TABLET DOXAZOSIN 2 MG TABLETProblem List As Of Date 10/12/2016 Noted Resolved Prostate cancer (HCC) [C61] INVALID FOR* Status:Closed by Marylou PAGAN MD on 10/15/16 Normal [facility] PROGRESSon 10-12-2016 Protein HNO ID: [id number] thor: Marylou Crain: (none)Author Type: PhysicianType: Progress NotesFiled: 10/15/2016 10:10 AMNote Text:Radiation Oncology - Follow-Up NotePATIENT NAME: Park Aldrich PROVIDER: Dr. GarciaDIAGNOSIS: 76 year old male with prostate adenocarcinoma, initial PSA35.73, biopsy Fairlee score 4 + 3 = 7 (grade group 3), clinical stageIIB C2fX6Z0, s/p TRUS-biopsyHPI: Here today after staging studies [...] 7 (grade group 3), clinical stage IIB D0sA2Q6, s/pTRUS-biopsyStaging study without evidence of metastatic process. [...] patient. Consent form obtained.Signed by: Marylou Pagan, [facility]:Alpesh Dunn MD (DrC)[address] [place] [place] [address]Udyfu: [phone]: [phone] Normal [facility] Protein HNO ID: [id number] thor: Marylou QuinterorService: (none)Author Type: PhysicianType: Progress NotesFiled: 10/13/2016 12:34 AMNote Text:PARK [id number]/06/2016[facility] Centeradiation Oncology DepartmentSIMULATION NOTEDATE OF SIMULATION: 10/12/2016THERAPIST: Melba Prasad: Laura SimulatorDIAGNOSIS: Malignant neoplasm of eydxsldaU56NXJB: ProstateCONTRAST: n/aConsent in Epic: yesPATIENT POSITION: Supine.FIXATION DEVICE: In order to achieve accurate and reproducible treatments,the patient is immobilized with sbrt knee sponge and foot bolsterA time-out was conducted and recorded by the therapist. CT scan wascompleted for target localization and planning. Field arrangement willbe determined after plan has been completed.The patient is scheduled for a verification simulation on the [facility] to ensure proper set-up and field arrangement is correct prior tothe first treatment of primary and boost vivas if applicable.Patient education will be completed per nursing.Electronically SignedKeyshawn Pagan M.D. / NOHEMI10/12/20163:32 PM Normal [facility] HNO ID: [id number] thor: Marylou Lovellervice: (none)Author Type: PhysicianType: Progress NotesFiled: 10/16/2016 12:33 AMNote Text:PARK [id number] 10/12/2016[facility] SanduskyRadiation Oncology DepartmentRADIATION ONCOLOGY - TREATMENT PLANNING [...] SignedKeyshawn Pagan M.D. / NOHEMI10/15/201612:32 PM Normal [facility] CT-CT ABD/PELVIS W CON IMPOR Ton 10-04-2016 CT-CT ABD/PELVIS W CON IMPORT Images were obtained outside of [facility] [id number] Normal [facility] PROGRESSon 10-01-2016 Protein HNO ID: [id number] thor: Marylou Matamorosice: (none)Author Type: PhysicianType: Progress NotesFiled: 10/01/2016 2:32 PMNote Text:Radiation Oncology - New Patient/Consult NotePATIENT NAME: Park Aldrich PROVIDER: Dr. GarciaDIAGNOSIS: 76 year old male with prostate adenocarcinoma, initial PSA35.73, biopsy Fairlee score 4 + 3 = 7 (grade group 3), clinical stageIIB R0zF5E6, s/p TRUS-biopsyHPI: 76 year old male with [...] from the right base Pj 7 (3+4) nddkqygsw74% of those cores as well as right lateral base, Fairlee 7 (4+3).Overall patient is fairly active without [...] 7 (grade group 3), clinical stage IIB M6fP3N9, s/pTRUS-biopsyPatient has a localized but high risk [...] withbrachytherapy boost. We discussed potential acute and przt-vvididamphnkp-ftlgiqk effects. We discussed the role of androgen [...] is currently being scheduled.Signed by: Marylou Pagan, [facility]:Alpesh Dunn MD (DrC)[address] [facility] [place] [address]Lzbui: [phone]: [phone] Normal [facility] CNCNPATEDon 09-29-2016 CNCNPATED Education (RADTSA) OUSMANE GUIDRY ([id number]) 1940 MDate Time Provider Department09/29/16 PHOEBE SEGURA (RN) Elidia for Visit: Patient Education [91]Visit Notes:>> Phoebe NunezRn) LAQUITA Segura TueSep 29, 2016 1:58 PM Status: SignedRadiation Therapy - Patient Education NotePATIENT NAME: Park Aldrich 2016[facility] FACILITY/LOCATION: NCCCREADINESS TO LEARNCognitive Ability: Alert and [...] denied need for social work, vanservice, and contracting specialist.Signed by: Rachel Gonzales Visit Diagnosis:Prostate cancer (HCC) [...] Routin* Status:Closed by PHOEBE SEGURA on 09/29/16 [facility] 09-29-2016 CNCO Letter Yuki Guidry:How to activate your [facility] [employer] Account 1. Visit the [employer] Signup page at [email or web address] 2. Identify yourself using your one-time use activation code: [email or web address] 3. Follow the on-screen prompts to choose your own secure username andpasswordThe following information will be necessary to access your account for thefirst time:Information needed for sign-up:Your custom activation code used one-time only for the initial accountset-up.Your date of birthThe last 4 digits of your social security numberWhat to do next:Fill in the requested information on the Identify Yourself Form [email or web address] , click Next.Create your login and password, choose a A[employer] ID and password that will beeasy for you to use, but impossible for anyone else to guess.Pick a security question that will assist you in the event you forget yourpassword the next time you log-on.If you have difficulty activating your account, please call our motify at [phone] or toll free at .We hope you enjoy using [employer]!Kindest Regards,[facility] [employer] Team Normal [facility] CNOVon 09-29-2016 CNOV Office Visit (RADTSA) OUSMANE GUIDRY ([id number]) 1940 MDate Time Provider Department09/29/16 1:00 PM Marylou PAGAN During your visit today, we recorded the following information about you: Blood pressure Weight Height 136/80 92.5 kg 1.721 Yolis Segura, RN, RN 09/29/2016 1:07 PM SignedAUA JOSEPH Hinsd MD 10/01/2016 2:32 PM SignedRadiation Oncology - New Patient/Consult NotePATIENT NAME: Park Aldrich PROVIDER: Dr. GarciaDIAGNOSIS: 76 year old male with prostate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 [facility] Other 10-18-2023 Evaluation note* Encounter Date Diagnosis [...] systemic treatment ongoing for metastatic prostate ca [facility] Other 05-17-2023 Evaluation note* Encounter Date Diagnosis [...] High risk medication use (ICD-10 - Z79.899) [facility] Other Evaluation noteNo InformationNort Buzzoole Other Evaluation note* Diagnosis Onset Date Resolution Status Acute postoperative pain of right hip acute Anemia acute Diabetes acute Hypertension acute Impaired mobility and activities of daily living acute Prostate CA acute Rib contusion acute Right femoral fracture acute [facility] Work Phone: History general Narrative - [...] History COLONOSCOPY Hospitalization History SEE SURGICAL HX [facility] Other History general Narrative - Reported* Type [...] fracture 01/2023 Hospitalization History SEE SURGICAL HX [facility] Other Summary Purpose Family History No Family [...] section and content) DATE CREATED AUTHOR 08/23/2017 [facility] DATE CREATED AUTHOR AUTHOR'S ORGANIZ ATION 01/29/2022 [facility] DATE CREATED AUTHOR AUTHOR'S ORGANIZ ATION 02/08/2023 [facility] DATE CREATED AUTHOR AUTHOR'S ORGANIZ ATION 10/18/2023 [facility] DATE CREATED AUTHOR AUTHOR'S ORGANIZ ATION 11/15/2023 [facility] REASON FOR VISIT (unrecogniz ed section and content) MEDICARE WELLNESSLab Results sinus infection for several weeksOrdersNo Information6 month [facility]No [facility] follow upNo Information Care Teams (unrecognized sec tion and content) Team Status: Active Member Role Status Dates Alpesh Dunn DO Primary Care Provider Active Team Status: Inactive Member Role Status Dates Alpesh Dunn DO Primary Care Provider Active Marc Mckinney MD Admit Provider, Attending Provider Active aNheed Joshi , LAQUITA Other Provider Active Mariza [...] Kaylie Brower MD Other Provider Active Dm eSo DO Other Provider Active Lenin Napier MD [...] DO Other Provider Active Molly Yin , PAYROLL ASSOCIATE Other Provider Active Fausto Wyatt , DO Other Provider Active Yuko Tavera MD Other Provider Active Patti Padilla , PAYROLL ASSOCIATE Other Provider Active Esther Brambila , PAYROLL ASSOCIATE Other Provider Active Katina Grimm MD Other Provider Active Anatoly Ortiz MD Other Provider Active Taryn Hope , PAYROLL ASSOCIATE Other Provider Active Vlad Smalls , DO [...] BE BASED ON THE PRIMARY CLINICAL RECORDS. [facility]. provides no warranty or guarantee of the accuracy or completeness of information in this document.
--- NOTE | 2023-12-23 12:39 | CT_ITS ---
[address] [address] Patient Name: PARK GUIDRY MRN: [id number] date: 1940 Sex: M Assigned Patient Location: CT Current Patient Location: Accession/Order Number: [id number] Exam Date: 12/23/2023 13:40 Report Date: 12/24/2023 07:04 At the request of: LISHA DUNN Procedure: CT abdomen pelvis w con EXAMINATION: CT abdomen pelvis w con HISTORY: weight loss, diarrhea COMPARISON: No relevant comparison available. TECHNIQUE: Axial, Coronal, and Sagittal images were obtained without and/or with IV contrast as indicated by examination type. Dose reduction techniques were achieved by using automated exposure control and/or adjustment of mA and/or kV according to patient size and/or use of iterative reconstruction technique. FINDINGS: LUNG BASES: No visible pulmonary or pleural disease. LIVER: No enlargement, atrophy, suspicious density, or significant focal lesion. BILIARY: No dilatation or calcification. PANCREAS: No lesion, fluid collection, or abnormal duct dilatation. SPLEEN: No enlargement or focal lesion. ADRENALS: No mass or enlargement. KIDNEYS: Small left renal cyst. No mass, obstruction, or calcification. BOWEL/MESENTERY: Moderate to large stool burden. Minimal diverticulosis of distal colon. No visible mass, obstruction, or bowel wall thickening. Normal appendix. AORTA/VASCULAR: No aneurysm or dissection. RETROPERITONEUM: No mass or adenopathy. LYMPH NODES: No adenopathy. URINARY BLADDER: No visible focal wall thickening, lesion, or calculus. PELVIC ORGANS: Prior radioactive seeding of the prostate. ABDOMINAL WALL: Small fat filled right inguinal hernia without strangulation. BONES: Right femoral neck repair. Left hip replacement. 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 OTHER: Negative. CT/CT abdomen pelvis w con IMPRESSION: 1. No suspicious findings to account for patient's symptoms. 2. Chronic changes detailed above. Electronically authenticated by: DANDY SANCHEZ Date: 12/24/2023 07:04
== END 2023-12-23 12:34 | disposition home or self-care (01) ==
LOC: CT 12:34
PROVIDERS: PCP Internal Medicine; Visit Provider Internal Medicine
DX: R63.4 Abnormal weight loss (principal); R19.7 Diarrhea, unspecified; R10.32 Left lower quadrant pain
CPT/HCPCS: 74177; Q9967

== ENCOUNTER 2024-01-23 14:44 | Outpatient (OUT) | payer MEDICARE, SELFPAY ==
[2024-01-24 04:07] LABS: PSA, Free <0.02 ng/mL; Prostate Specific Ag <0.1 ng/mL (0.0-4.0)
== END 2024-01-23 14:45 | disposition home or self-care (01) ==
LOC: LAB 14:45
PROVIDERS: PCP Internal Medicine; Visit Provider Urology
DX: R97.21 Rising PSA following treatment for malignant neoplasm of prostate (principal)
CPT/HCPCS: 36415; 84153; 84154

== ENCOUNTER 2024-06-14 14:52 | Outpatient (OUT) | payer MEDICARE, SELFPAY ==
--- NOTE | 2024-06-14 17:56 | P.WCHP_ITS ---
Wound Care H&P: HPI History of Present Illness Narrative: The patient is a pleasant 84-year-old gentleman who presents for routine nail care. The patient has recurrent ingrown toenails that require frequent debridement. No sign of infection at this time. Exam 2 Narrative: Exam Narrative: Derm: Skin is diffusely dry, thin, and shiny. Toenails 1 through 10 are elongated. There is ingrowing of the medial and lateral nail borders of both great toes. No evidence of paronychia at this time. Vascular: The left DP pulse is 1/4. Right DP pulse is nonpalpable. The PT pulses are nonpalpable bilaterally. Capillary refill is less than 3 seconds bilaterally. Superficial varicosities are noted. There is nonpitting edema of both lower legs and ankles. Digital hair is absent bilaterally. Neuro: Protective sensation intact to 5/5 areas tested in each foot. Vibratory sensation is intact. Achilles deep tendon reflexes are 1+ bilaterally. Assessment and Plan Assessment and Plan (1) Ingrowing nail, left great toe: (2) Ingrowing nail, right great toe: (3) Tinea unguium: (4) Difficulty walking: (5) Gait instability: (6) Disorder of nail due to another disorder: Plan The patient is a pleasant 84-year-old gentleman with history of ambulatory dysfunction who presents for routine nail care. He gets recurrent ingrowing of the medial and lateral nail borders of both great toes. All nails were debrided without incident. The great toes were trimmed in a slant back fashion on both sides and nail folds were evacuated of foreign material. Follow-up in 3 months, sooner if any issues arise. Acute Procedures Podiatry Nail Debridement Class B Findings Absent posterior tibial pulse: bilateral Advanced trophic changes as evidenced by any three of the following: decreased hair growth, nail changes (thickening) and skin texture (thin or shiny) Absent dorsalis pedis pulse: left Class C Findings Claudication: No Temperature changes: No Edema: Yes Nail debridement paresthesia (abnormal spontaneous sensations in the feet): No Burning: No Qualifies If: Qualifiers If:: A patient qualifies for nail debridement if they have: 1 class A finding (Q7) 2 class B findings (Q8) OR 1 class B & 2 class C findings in addition to a primary condition (Q9) Nail Procedure Nail Procedure Time out: Yes Nail procedure: other (Nail debridement 1 through 10, slant back trimming to relieve ingrowing toenails to bilateral great toes) Number of affected nails: 10 Location (toes): left and right Procedure successful: Yes Patient tolerated procedure: well and no complications Additional comments: Toenails 1 through 10 were sharply debrided with nail nippers without incident. The medial and lateral corners of the great toenails were trimmed in a slant back fashion and debris was cleared from the nail folds bilaterally. He noted pain relief postprocedure.
== END 2024-06-14 14:53 | disposition home or self-care (01) ==
LOC: WC 14:52
PROVIDERS: PCP Internal Medicine; Visit Provider Physician Assistant
DX: L60.0 Ingrowing nail (principal); B35.1 Tinea unguium; R26.2 Difficulty in walking, not elsewhere classified; R26.89 Other abnormalities of gait and mobility; L60.8 Other nail disorders
CPT/HCPCS: 11721

== ENCOUNTER 2024-06-28 14:20 | Outpatient (OUT) | payer MEDICARE, SELFPAY ==
--- OUTSIDE RECORDS SUMMARY | 2024-05-09 15:36 | XMS_ITS ---
Author Name Auto Generated Organization OHIP Care Team Providers Care Lens Assorter Name Role Phone FLORIAN SANCHEZ Referring Unavailable FLORIAN SANCHEZ Referring Unavailable DONNA SINGH Referring Unavailable TODD CABALLERO Attending Unavailable SHAUN, ALPESH Amaury Primary Care Unavailable DONNA SINGH Attending Unavailable DONNA SINGH Referring Unavailable SHAUN ALPESH E Primary Care Unavailable Asaad, Imad Admitting Unavailable Asaad, Imad Attending Unavailable Shaun, Alpesh Primary Care Unavailable Asaad, Imad Admitting Unavailable Asaad, Imad Attending Unavailable Shaun, Alpesh Primary Care Unavailable Asaad, Imad Attending Unavailable Ball, Alpesh Primary Care Unavailable Asaad, Imad Admitting Unavailable Jaguar BATRES Attending Unavailable Jaguar BATRES Attending Unavailable STELLA, MIA LINN Attending Unavaila ble MIA DOUGLAS Referring Unavaila ble Jaguar BATRES Attending Unavailable PROBLEMS DATE TYPE CONDITION / CODE ATTENDING STATUS [facility] 09/29/2016 Active Prostate cancer (HCC) / C61(ICD-10) TODD CABALLERO [facility] 05/09/2024 Active 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) TODD CABALLERO [facility] 05/09/2024 Active Adverse effect o f radiation, sequela / T66.XXXS(ICD-10) TODD CABALLERO Active [facility] 04/03/2024 Unknown Ulcer of anus an d rectum / K62.6(ICD-10) [facility] 03/30/2024 Active Rectal lesion / K62.9(ICD-10) DONNA SINGH Active [facility] 03/02/2024 Unknown Other specified diseases of anus and rectum / K62.89(ICD-10) [facility] 01/27/2024 Unknown Abnormal weight loss / R63.4(ICD-10) [facility] 01/19/2023 Unknown Displaced transv erse fracture of shaft of unspecified femur, initial encounter for closed fracture / S72.323A(ICD-10) NA Active [facility] PROCEDURES No Procedure Records Found RESULTS PROGRESS Observed: 05/09/2024 4:15 PM Status: COMPLETED Source: [facility] HNO ID: [id number] Author: TODD CABALLERO MD Service: ? Author Type: Physician Type: Progress Notes Filed: 05/09/2024 21:00 Note Text: [facility] UR[facility]Y NEW PATIENT CLINIC NOTE SERVICE DATE: 05/09/2024 NAME: Park Guidry REFERRED BY: Donna Singh [id number] [facility] [address] [place] [address] Singh for an opinion regarding rectourethral fistula. My final recommendations will be communicated back to the requesting physician by way of shared Medical record or letter to requesting physician via [place] mail. HISTORY OF PRESENT ILLNESS Mr. 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 Pneumaturia and fecaluria x a few months Stream is strong PVR today 0 No dysuria, hematuria Urine per rectum No pain Sometimes burning when he pees but not consistent No fevers On enzalutamide for prostate cancer MRI reportedly shows large ulceration of rectum with wall thickening adjacent to prostate Air in the bladder suspicious for fistula PMH otherwise pretty healthy Here with his daughter Patient lives alone PAST MEDICAL HISTORY PAST MEDICAL HISTORY Diagnosis Date Arthritis History of brachytherapy Prostate cancer (HCC) history of external beam radiation and brachytherapy in 2013 PAST SURGICAL HISTORY PAST SURGICAL HISTORY Procedure Laterality Date ARTHROPLASTY KNEE MEDIAL OR LAT COMPART Bilateral FAMILY HISTORY No family history on file. SOCIAL HISTORY Social History Tobacco Use Smoking status: Never Smokeless tobacco: Former MEDICATIONS Current Outpatient Medications Medication Sig tamsulosin ER (FLOMAX) 0.4 mg cp24 Take 0.4 mg by mouth twice daily. tolterodine (DETROL) 2 mg tablet 4 mg. enzalutamide (XTANDI) 40 mg tablet Take 160 mg by mouth once daily. amLODIPine (NORVASC) 5 mg tablet ALPRAZolam (XANAX) 0.25 mg tablet meloxicam (MOBIC) 15 mg tablet No current facility-administered medications for this visit. CURRENT ALLERGIES Allergies As of Date: 05/09/2024 (No Known Allergies) Fully Assessed 05/09/2024 OBJECTIVE PHYSICAL EXAM: 05/09/24 1602 BP: 146/82 There is no height or weight on file to calculate BMI. 05/09/24 1602 BP: 146/82 General: pleasant Psych: euthymic, NAD Neuro: AANDOx3. CV: normal perfusion, hemodynamically stable Resp: normal effort DATA Labs Lab Results Component Value Date/Time WBC 5.13 11/11/2016 09:03 AM HB 14.3 11/11/2016 09:03 AM HCT 41.8 11/11/2016 09:03 AM PLT 112 (L) 11/11/2016 09:03 AM PVR 0 ASSESSMENT/PLAN 1. 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 83 M w ho CAP sp brachy and XRT now with RUF No symptomatic infections Main bother is urgency of bowel movements/urine per rectum Discussed fistulas and mgmt in general Discussed that rectourethral fistulas are generally managed with multiple staged procedures - first fecal diversion +/- SPT if obstructive urinary tract Then EUA months later Then decision regarding repair w gracilis v cx IC +/- eventual colostomy take down He is really not interested in major surgery Discussed rational of fecal diversion to get stool away from urinary tract He has no obstructive LUTS and PVR is 0 He is concerned about colostomy and how he would manage it - discussed how this might make his bowels more manageable and would reduce risk of bad UTI Other option would be observation. Discussed risk of UTI, urosepsis, abscesses, etc. Discussed that given how well he has been doing and his age this would not be unreasonable but would need to remain vigilant about bringing him in with any s/s of infection (often just confusion in older adults) If he was going for colostomy would rec cysto to r/o outlet obstruction Todd Caballero MD Associate Staff [facility] [place] Department of Urology PROGRESS Observed: 05/09/2024 4:05 PM Status: COMPLETED Source: [facility] HNO ID: [id number] Author: NIKKI WALLACE RN Service: ? Author Type: Registered Nurse Type: Progress Notes Filed: 05/09/2024 21:00 Note Text: Post void residual done on patient with 0 cc residual volume remaining. notified. Nikki Wallace RN CNOV Observed: 05/09/2024 3:30 PM Status: COMPLETED Source: [facility] Office Visit ([facility]) PARK GUIDRY ([id number]) 1940 M Date Time Provider Department 05/09/24 3:30 PM TODD CABALLERO [facility] During your visit today, we recorded the following information about you: Blood pressure 146/82 Nikki Wallace RN 05/09/2024 9:00 PM Signed Post void residual done on patient with 0 cc residual volume remaining. notified. LAQUITA Ramirez Molly, MD 05/09/2024 9:00 PM Signed [facility] [facility] NEW PATIENT CLINIC NOTE SERVICE DATE: 05/09/2024 NAME: Park Guidry REFERRED BY: Donna Singh [id number] [address] [facility] [id number] Singh for an opinion regarding rectourethral fistula. My final recommendations will be communicated back to the requesting physician by way of shared Medical record or letter to requesting physician via US mail. HISTORY OF PRESENT ILLNESS Mr. 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 Pneumaturia and fecaluria x a few months Stream is strong PVR today 0 No dysuria, hematuria Urine per rectum No pain Sometimes burning when he pees but not consistent No fevers On enzalutamide for prostate cancer MRI reportedly shows large ulceration of rectum with wall thickening adjacent to prostate Air in the bladder suspicious for fistula PMH otherwise pretty healthy Here with his daughter Patient lives alone PAST MEDICAL HISTORY PAST MEDICAL HISTORY Diagnosis Date Arthritis History of brachytherapy Prostate cancer (HCC) history of external beam radiation and brachytherapy in 2012 PAST SURGICAL HISTORY PAST SURGICAL HISTORY Procedure Laterality Date ARTHROPLASTY KNEE MEDIAL OR LAT COMPART Bilateral FAMILY HISTORY No family history on file. SOCIAL HISTORY Social History Tobacco Use Smoking status: Never Smokeless tobacco: Former MEDICATIONS Current Outpatient Medications Medication Sig tamsulosin ER (FLOMAX) 0.4 mg cp24 Take 0.4 mg by mouth twice daily. tolterodine (DETROL) 2 mg tablet 4 mg. enzalutamide (XTANDI) 40 mg tablet Take 160 mg by mouth once daily. amLODIPine (NORVASC) 5 mg tablet ALPRAZolam (XANAX) 0.25 mg tablet meloxicam (MOBIC) 15 mg tablet No current facility-administered medications for this visit. CURRENT ALLERGIES Allergies As of Date: 05/09/2024 (No Known Allergies) Fully Assessed 05/09/2024 OBJECTIVE PHYSICAL EXAM: 05/09/24 1602 BP: 146/82 There is no height or weight on file to calculate BMI. 05/09/24 1602 BP: 146/82 General: pleasant Psych: euthymic, NAD Neuro: AANDOx3. CV: normal perfusion, hemodynamically stable Resp: normal effort DATA Labs Lab Results Component Value Date/Time WBC 5.13 11/11/2016 09:03 AM HB 14.3 11/11/2016 09:03 AM HCT 41.8 11/11/2016 09:03 AM PLT 112 (L) 11/11/2016 09:03 AM PVR 0 ASSESSMENT/PLAN 1. 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 83 M w ho CAP sp brachy and XRT now with RUF No symptomatic infections Main bother is urgency of bowel movements/urine per rectum Discussed fistulas and mgmt in general Discussed that rectourethral fistulas are generally managed with multiple staged procedures - first fecal diversion +/- SPT if obstructive urinary tract Then EUA months later Then decision regarding repair w gracilis v cx IC +/- eventual colostomy take down He is really not interested in major surgery Discussed rational of fecal diversion to get stool away from urinary tract He has no obstructive LUTS and PVR is 0 He is concerned about colostomy and how he would manage it - discussed how this might make his bowels more manageable and would reduce risk of bad UTI Other option would be observation. Discussed risk of UTI, urosepsis, abscesses, etc. Discussed that given how well he has been doing and his age this would not be unreasonable but would need to remain vigilant about bringing him in with any s/s of infection (often just confusion in older adults) If he was going for colostomy would rec cysto to r/o outlet obstruction Todd Caballero MD Associate Staff [facility] [place] Department of Urology Referring Provider: DONNA SINGH [[id number]] Allergies As of Date: 05/09/2024 (No Known Allergies) Date Reviewed: 05/09/2024 Reviewed by: Nikki Wallace RN - Fully Assessed Reason for Visit: Consult [173] Primary Visit Diagnosis:Prostate cancer (HCC) [C61] Other Visit Diagnoses:Rectourethral fistula [N36.0] Adverse effect of radiation, sequela [T66.XXXS] Order(s):CONSULT TO UROLOGY [9041] Order #: [id number]: 1 Prescriptions as of 05/09/2024 - tolterodine (DETROL) 2 mg tablet 4 mg. - enzalutamide (XTANDI) 40 mg tablet Take 160 mg by mouth once daily. - amLODIPine (NORVASC) 5 mg tablet - tamsulosin ER (FLOMAX) 0.4 mg cp24 Take 0.4 mg by mouth twice daily. - ALPRAZolam (XANAX) 0.25 mg tablet - meloxicam (MOBIC) 15 mg tablet Problem List As Of Date 05/09/2024 Noted Resolved Prostate cancer (HCC) [C61] 09/29/2016 History of prostate cancer [Z85.46] 08/17/2017 Encounter Status:Closed by TODD CABALLERO on 05/09/24 MR PELVIS WO/W CON Observed: 04/03/2024 10:46 AM Status: COMPLETED Source: [facility] [place] [address] [place] [address] MRI Report Signed Patient: Park Guidry MR#: [id number] : 1940 Acct:[id number] Age/Sex: 83 / M ADM Date: 04/03/24 Loc: Room: Type: [facility] Attending Dr: Lars Avelar MD Copies to: Lars Avelar MD Ordering Provider: Lars Avelar MD Date of Service: 04/03/24 MR/MR pelvis wo/w con: K62.6 - Ulcer of anus and rectum MRI OF THE PELVIS WITH AND WITHOUT CONTRAST: CLINICAL HISTORY: Difficulty urinating irregular screening. History of prostate and colon cancer. COMPARISON: None TECHNIQUE: Multisequence, multiplanar imaging of the pelvis was obtained before and after the use of IV contrast. FINDINGS: There appears to be a large ulceration involving the anterior wall of the rectum approximately 3 cm from the anal verge with associated wall thickening and enhancement. The enhancement is seen extending into the region of the prostate gland and bladder neck. Air is seen within the lumen of the urinary bladder suspicious for underlying fistula. Anal sphincter complex appears unremarkable. No suspicious lymph nodes are noted. No fluid collection is seen. Small amount of free fluid is seen. Radiation seeds are seen involving the residual prostate gland. Blooming artifact is seen from the patient's right hip hardware and left JANETT which limits evaluation. No suspicious bony lesions are noted. MR/MR pelvis wo/w con IMPRESSION: THERE APPEARS BE A LARGE ULCERATION INVOLVING THE ANTERIOR WALL OF THE RECTUM APPROXIMATELY 3 CM FROM THE ANAL VERGE WITH ASSOCIATED WALL THICKENING AND ENHANCEMENT. THE ENHANCEMENT APPEARS TO EXTEND INTO THE REGION OF THE PROSTATE GLAND AND BLADDER NECK WITH AIR SEEN WITHIN THE URINARY BLADDER LUMEN SUSPICIOUS FOR UNDERLYING FISTULA. CORRELATION WITH COLONOSCOPY FINDINGS IS RECOMMENDED. FINDING MAY BE POSTTREATMENT IN NATURE GIVEN THE RADIATION SEEDS WITHIN THE PROSTATE GLAND. Impression dictated by: Jackson Kerns Jr., D.OMario04/03/2024 10:58 AM Dictation Location: RADIO-PC-22 Transcribed By: GRISELDA 04/03/24 1058 Dictated By: Jackson Kerns Jr, DO 04/03/24 1046 Signed By: <Electronically signed by Jackson Kerns Jr, DO in OV> 04/03/24 1058 ISTAT XRAY CRE Collected: 04/03/2024 8:12 AM Status: F Source: [facility] TYPE CODE TESTS RESULT OUT OF RANGE REFERENCE UNITS LAB ISCREAT ISTAT Creatinine Level 0.9 Normal 0.6-1.3 mg/dL Result Comment: ER/ESD physi morelia is notified/shown all ISTAT results. Critical values may be confirmed by laboratory testing if deemed necessary by ER attending doctor. LAB ISTATGFRNR ISTAT GFR >60.0 Result Comment: PERFORMED BY : [place] [address] PATHOLOGIST DIVIDING MACHINE OPERATOR RADHA ZHENG M.D. Performed By: #### ISCRE ### # [address] CNOV Observed: 03/30/2024 2:40 PM Status: COMPLETED Source: [facility] Office Visit ([facility]) PARK GUIDRY ([id number]) 1940 M Date Time Provider Department 03/30/24 2:40 PM DONNA SINGH [facility] During your visit today, we recorded the following information about you: Temperature Pulse Blood pressure 97.8 degrees 83/minute 151/92 Donna Singh MD 03/30/2024 3:51 PM Signed COLORECTAL SURGERY March 30, 2024 Park Guidry 83 year old This consult was requested by Dr. Lars Shi and my final recommendations will be communicated to the requesting health care provider by way of the shared medical record for internal providers or letter via the [place] Postal Service for external providers. Chief Complaint: ulcer of anus and rectum History of Present Illness: Park Guidry is a 83 year old male presents today for evaluation of rectal ulcer. MRI scheduled for 04/03/24 at [facility] CT CAP 01/27/24 - [facility] Scan on 03/05/2024 3:53 PM by Celia Garcia: [facility] CT Chest,Abdomen and Pelvis 01/27/24 Impression: Circumferential irregular wall thickening of the distal sigmoid colon and rectum likely corresponding with patient's history of rectal ulceration and suspicion for malignancy. No adjacent enlarged lymph nodes. No distal metastatic disease of the chest abdomen or pelvis Sigmoidoscopy 03/02/24 - Dr. Avelar Scan on 03/05/2024 3:50 PM by Celia Garcia: [facility] Sigmoidoscopy Notes 03/02/24 Rectum: Excavated ulcerated lesion in the rectum (4 cm), biopsied using jumbo biopsy Pathology 03/02/24 Scan on 03/22/2024 4:01 PM by Celia Garcia: [facility]- Pathology Report 03/02/24 - Ulcer with reactive stromal atypia, negative for carcinoma Colonoscopy 01/27/24 - Dr. Avelar Scan on 03/05/2024 3:51 PM by Celia Garcia: [facility]- EGD AND Colonoscopy Report 01/27/24 Ascending colon: A 2 cm polyp removed piecemeal using hot snare clip was placed at e polypectomy site to prevent post polypectomy bleeding. The area on the opposite wall of the 3 cm polyp was tattooed using black eye submucosal injection. 3 polyps (4-6 mm) removed using cold snare. Rectum: A 4 cm deep ulcer noted, biopsies were done using jumbo biopsy Pathology 01/27/24 COLON: Biopsy, Ascending, POLYPS FRAGMENTS OF TUBULOVILLOUS ADENOMA. NEGATIVE FOR HIGH GRADE DYSPLASIA COLON, Biopsy, Rectum, MASS ULCERATION WITH GRANULATION TISSUE, SUGGESTIVE OF INFLAMMATORY POLYP, SCANT SQUAMOUS AND COLONIC MUCOSA IDENTIFIED. 83 y/o male with 6 months of explosive diarrhea. Any bowel movement causes pain. He started xtandi a year ago prior to these symptoms and family thinks this may be related. He reports he has had bubbling and pneumaturia when he urinates as well as whitish exudate with bowel movements PAST MEDICAL HISTORY Diagnosis Date Arthritis PAST SURGICAL HISTORY Procedure Laterality Date ARTHROPLASTY KNEE MEDIAL OR LAT COMPART Bilateral Current Outpatient Medications Medication Sig Dispense Refill amLODIPine (NORVASC) 5 mg tablet tamsulosin ER (FLOMAX) 0.4 mg cp24 Take 0.4 mg by mouth twice daily. ALPRAZolam (XANAX) 0.25 mg tablet 5 meloxicam (MOBIC) 15 mg tablet No current facility-administered medications for this visit. ALLERGIES No Known Allergies No family history on file. Social History Tobacco Use Smoking status: Never Smokeless tobacco: Former Physical Exam: BP 151/92 (BP Site: Right Arm, BP Position: Sitting, BP Cuff Size: Regular Adult) Pulse 83 Temp 36.6 ?C (97.8 ?F) SpO2 97% General Appearance: Well appearing, alert, in no acute distress, well-hydrated, well nourished. Anorectal: External exam reveals no lesions. Digital rectal exam reveals anterior divot consistent with ulcer Tight Cooper present: Yes, Ximena Sheets Anoscopy could not be performed due to patient discomfort The sensitive examination was discussed with the Patient or Patient's Authorized Visual Coordinator. As applicable, any other physician, advance practice provider, medical student, or other health professional student that will be observing or involved in the sensitive examination for educational or training purposes was discussed with the Patient or Authorized Visual Coordinator. The Patient or Authorized Visual Coordinator has agreed to proceed with the sensitive examination. 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 He had 2 biopsies of this lesion that were negative for any malignancy. I will refer him for consideration of hyperbaric oxygen therapy. Also refer him to urology for any other treatment options for his rectourethral fistula. He certainly does not want a colostomy and I doubt he would want any aggressive surgical measures. He can return to see me as needed Medical Decision Making: Data Reviewed: Tests AND Documents Reviewed/ordered: Review of prior notes from Dr. Avelar Review of Pathology Review of Imaging: CT Abdomen, CT Pelvis, CT Chest Review of Labs: CBC, BMP Review of Procedures / Tests: Colonoscopy I have discussed Park Guidry's treatment plan and/or results with Dr. Avelar. Risk of morbidity, mortality and/or complications of treatment plan: high Donna Singh MD Colorectal Surgery Referring Provider: DONNA SINGH [[id number]] Allergies As of Date: 03/30/2024 (No Known Allergies) Date Reviewed: 03/30/2024 Reviewed by: Donna Singh MD - Fully Assessed Reason for Visit: ulcer of anus and rectum [Other] Primary Visit Diagnosis:Rectal lesion [K62.9] Other Visit Diagnoses:Rectourethral fistula [N36.0] Anorectal ulcer [K62.6] Order(s):CONSULT TO UROLOGY [9041] Order #: [id number]: 1 FUTURE CONSULT TO HYPERBARIC [1151865] Order #: [id number]: 1 Prescriptions as of 04/04/2024 - tolterodine (DETROL) 2 mg tablet 4 mg. - enzalutamide (XTANDI) 40 mg tablet Take 160 mg by mouth once daily. - amLODIPine (NORVASC) 5 mg tablet - tamsulosin ER (FLOMAX) 0.4 mg cp24 Take 0.4 mg by mouth twice daily. - ALPRAZolam (XANAX) 0.25 mg tablet - meloxicam (MOBIC) 15 mg tablet Problem List As Of Date 03/30/2024 Noted Resolved Prostate cancer (HCC) [C61] 09/29/2016 History of prostate cancer [Z85.46] 08/17/2017 Letter Text Encounter Status:Closed by DONNA SINGH on 03/30/24 PROGRESS Observed: 03/30/2024 2:40 PM Status: COMPLETED Source: [facility] ID: [id number] Author: DONNA SINGH MD Service: ? Author Type: Physician Type: Progress Notes Filed: 03/30/2024 15:51 Note Text: COLORECTAL SURGERY March 30, 2024 Park Guidry 83 year old This consult was requested by Dr. Lars Shi and my final recommendations will be communicated to the requesting health care provider by way of the shared medical record for internal providers or letter via the [facility] [facility] [employer] for external providers. Chief Complaint: ulcer of anus and rectum History of Present Illness: Park Guidry is a 83 year old male presents today for evaluation of rectal ulcer. MRI scheduled for 04/03/24 at [facility] CT CAP 01/27/24 - [facility] Scan on 03/05/2024 3:53 PM by Celia Garcia: [facility]- CT Chest,Abdomen and Pelvis 01/27/24 Impression: Circumferential irregular wall thickening of the distal sigmoid colon and rectum likely corresponding with patient's history of rectal ulceration and suspicion for malignancy. No adjacent enlarged lymph nodes. No distal metastatic disease of the chest abdomen or pelvis Sigmoidoscopy 03/02/24 - Dr. Avelar Scan on 03/05/2024 3:50 PM by Celia Garcia: [facility] Sigmoidoscopy Notes 03/02/24 Rectum: Excavated ulcerated lesion in the rectum (4 cm), biopsied using jumbo biopsy Pathology 03/02/24 Scan on 03/22/2024 4:01 PM by Celia Garcia: [facility]- Pathology Report 03/02/24 - Ulcer with reactive stromal atypia, negative for carcinoma Colonoscopy 01/27/24 - Dr. Avelar Scan on 03/05/2024 3:51 PM by Celia Garcia: [facility]- EGD AND Colonoscopy Report 01/27/24 Ascending colon: A 2 cm polyp removed piecemeal using hot snare clip was placed at e polypectomy site to prevent post polypectomy bleeding. The area on the opposite wall of the 3 cm polyp was tattooed using black eye submucosal injection. 3 polyps (4-6 mm) removed using cold snare. Rectum: A 4 cm deep ulcer noted, biopsies were done using jumbo biopsy Pathology 01/27/24 COLON: Biopsy, Ascending, POLYPS FRAGMENTS OF TUBULOVILLOUS ADENOMA. NEGATIVE FOR HIGH GRADE DYSPLASIA COLON, Biopsy, Rectum, MASS ULCERATION WITH GRANULATION TISSUE, SUGGESTIVE OF INFLAMMATORY POLYP, SCANT SQUAMOUS AND COLONIC MUCOSA IDENTIFIED. 83 y/o male with 6 months of explosive diarrhea. Any bowel movement causes pain. He started xtandi a year ago prior to these symptoms and family thinks this may be related. He reports he has had bubbling and pneumaturia when he urinates as well as whitish exudate with bowel movements PAST MEDICAL HISTORY Diagnosis Date Arthritis PAST SURGICAL HISTORY Procedure Laterality Date ARTHROPLASTY KNEE MEDIAL OR LAT COMPART Bilateral Current Outpatient Medications Medication Sig Dispense Refill amLODIPine (NORVASC) 5 mg tablet tamsulosin ER (FLOMAX) 0.4 mg cp24 Take 0.4 mg by mouth twice daily. ALPRAZolam (XANAX) 0.25 mg tablet 5 meloxicam (MOBIC) 15 mg tablet No current facility-administered medications for this visit. ALLERGIES No Known Allergies No family history on file. Social History Tobacco Use Smoking status: Never Smokeless tobacco: Former Physical Exam: BP 151/92 (BP Site: Right Arm, BP Position: Sitting, BP Cuff Size: Regular Adult) Pulse 83 Temp 36.6 ?C (97.8 ?F) SpO2 97% General Appearance: Well appearing, alert, in no acute distress, well-hydrated, well nourished. Anorectal: External exam reveals no lesions. Digital rectal exam reveals anterior divot consistent with ulcer Tight Cooper present: Yes, Ximena Sheets Anoscopy could not be performed due to patient discomfort The sensitive examination was discussed with the Patient or Patient's Authorized Visual Coordinator. As applicable, any other physician, advance practice provider, medical student, or other health professional student that will be observing or involved in the sensitive examination for educational or training purposes was discussed with the Patient or Authorized Visual Coordinator. The Patient or Authorized Visual Coordinator has agreed to proceed with the sensitive examination. 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 He had 2 biopsies of this lesion that were negative for any malignancy. I will refer him for consideration of hyperbaric oxygen therapy. Also refer him to urology for any other treatment options for his rectourethral fistula. He certainly does not want a colostomy and I doubt he would want any aggressive surgical measures. He can return to see me as needed Medical Decision Making: Data Reviewed: Tests AND Documents Reviewed/ordered: Review of prior notes from Dr. Avelar Review of Pathology Review of Imaging: CT Abdomen, CT Pelvis, CT Chest Review of Labs: CBC, BMP Review of Procedures / Tests: Colonoscopy I have discussed Park Guidry's treatment plan and/or results with Dr. Avelar. Risk of morbidity, mortality and/or complications of treatment plan: high Donna Singh MD Colorectal Surgery CNPN Observed: 03/22/2024 12:00 AM Status: COMPLETED [facility] [place] ([id number]) 1940 M Date Time Provider Department 03/22/24 DONNA SINGH During your visit today, we recorded the following information about you: Ilan Padilla, RN 03/22/2024 10:47 AM Signed Called [facility] Regulator, Lamar Matthew, and told her I was looking through the records and wondered if we could get a copy of pathology from sigmoidoscopy on 03/02/24 and also if he has had MRI rectum yet and if so, if we could get that also. Provided cell phone number for return call. Allergies As of Date: 03/22/2024 (No Known Allergies) Date Reviewed: 08/17/2017 Reviewed by: Funmi Santos - Fully Assessed Prescriptions as of 03/22/2024 - amLODIPine (NORVASC) 5 mg tablet - tamsulosin ER (FLOMAX) 0.4 mg cp24 Take 0.4 mg by mouth twice daily. - ALPRAZolam (XANAX) 0.25 mg tablet - meloxicam (MOBIC) 15 mg tablet Problem List As Of Date 03/22/2024 Noted Resolved Prostate cancer (HCC) [C61] 09/29/2016 History of prostate cancer [Z85.46] 08/17/2017 Encounter Status:Closed by ILAN PADILLA on 03/22/24 ALANNA Observed: 03/09/2024 12:00 AM Status: COMPLETED Source: [facility] PARK GUIDRY ([id number]) 1940 M Date Time Provider Department 03/09/24 DONNA SINGH [facility] During your visit today, we recorded the following information about you: Celia Garcia 03/09/2024 8:55 AM Signed 03/09 Tried to leave VM but unable to Allergies As of Date: 03/09/2024 (No Known Allergies) Date Reviewed: 08/17/2017 Reviewed by: Funmi Santos - Fully Assessed Prescriptions as of 03/09/2024 - amLODIPine (NORVASC) 5 mg tablet - tamsulosin ER (FLOMAX) 0.4 mg cp24 Take 0.4 mg by mouth twice daily. - ALPRAZolam (XANAX) 0.25 mg tablet - meloxicam (MOBIC) 15 mg tablet Problem List As Of Date 03/09/2024 Noted Resolved Prostate cancer (HCC) [C61] 09/29/2016 History of prostate cancer [Z85.46] 08/17/2017 Encounter Status:Closed by CELIA GARCIA on 03/09/24 CNPN Observed: 03/09/2024 12:00 AM Status: COMPLETED Source: [facility] [employer] [facility] PARK GUIDRY ([id number]) 1940 M Date Time Provider Department 03/09/24 DONNA SINGH [facility] During your visit today, we recorded the following information about you: Celia Garcia 03/09/2024 8:55 AM Signed 03/09 Tried 3 times to contact patient unable to reach patient Allergies As of Date: 03/09/2024 (No Known Allergies) Date Reviewed: 08/17/2017 Reviewed by: Funmi Santos - Fully Assessed Prescriptions as of 03/09/2024 - amLODIPine (NORVASC) 5 mg tablet - tamsulosin ER (FLOMAX) 0.4 mg cp24 Take 0.4 mg by mouth twice daily. - ALPRAZolam (XANAX) 0.25 mg tablet - meloxicam (MOBIC) 15 mg tablet Problem List As Of Date 03/09/2024 Noted Resolved Prostate cancer (HCC) [C61] 09/29/2016 History of prostate cancer [Z85.46] 08/17/2017 Encounter Status:Closed by CELIA GARCIA on 03/09/24 CNPN Observed: 03/08/2024 12:00 AM Status: COMPLETED Source: [facility] Telephone ([facility]) PARK GUIDRY ([id number]) 1940 M Date Time Provider Department 03/08/24 DONNA SINGH [facility] During your visit today, we recorded the following information about you: Celia Garcia 03/08/2024 10:42 AM Signed 03/08 Unable to leave message to call back to schedule appointment Allergies As of Date: 03/08/2024 (No Known Allergies) Date Reviewed: 08/17/2017 Reviewed by: Funmi Santos - Fully Assessed Reason for Visit: Appointment [186] Prescriptions as of 03/08/2024 - amLODIPine (NORVASC) 5 mg tablet - tamsulosin ER (FLOMAX) 0.4 mg cp24 Take 0.4 mg by mouth twice daily. - ALPRAZolam (XANAX) 0.25 mg tablet - meloxicam (MOBIC) 15 mg tablet Problem List As Of Date 03/08/2024 Noted Resolved Prostate cancer (HCC) [C61] 09/29/2016 History of prostate cancer [Z85.46] 08/17/2017 Encounter Status:Closed by CELIA GARCIA on 03/08/24 SURGICAL PATHOLOGY REFERENCE LAB CONSULT Collected: 03/07/2024 2:35 PM Status: F Source: [facility] Order Comment: Specimen Type : FORMALIN-FIXED PARAFFIN-EMBEDDED TISSUE SPECIMEN Ordering Facility: [facility] Address: [place] [address] TYPE CODE TESTS RESULT OUT OF RANGE REFERENCE UNITS PATHOLOGY [id number] CASE REPORT Result Comment: Surgical Pat hology Report Case: [id number] Authorizing Provider: Leyda Heaton MD Collected: 03/07/2024 02:35 PM Ordering Location: [facility] Received: 03/07/2024 02:34 PM [facility] Pathologist: Josephine Fritz MD Specimen: Block(s) and/or Slide(s), 3 SLIDES & 1 BLOCK ([id number]: A1) PATHOLOGY [id number] FINAL DIAGNOSIS Result Comment: Rectal lesio n, biopsy (A): - Ulcer with reactive stromal atypia, negative for carcinoma. OLOGY [id number] DIAGNOSIS COMMENT Result Comment: Thank you fo r allowing us the opportunity to review this case in consultation representing the rectal lesion biopsy from this 83-year-old patient with clinical history of rectal ulcer. Histologic sections demonstrate multiple fragments of active and organizing granulation tissue with fibropurulent debris. Some of the granulation tissue shows hyalinization and perivascular fibrosis. Scattered throughout are numerous large and pleomorphic atypical stromal cells with enlarged hyperchromatic nuclei, variably prominent nucleoli, a moderate amount of eosinophilic cytoplasm, and a polygonal to spindle cell shaped. On the provided immunostain, these atypical cells are negative for AE1/AE3. We do not see evidence of viral inclusions. Overall these findings are of a fibroinflammatory process which is negative for carcinoma, and with the reactive stromal atypia representing benign ulcerocytes. Thank you for sending this case in consultation. Please do not hesitate to contact the GI consultation service at [phone] with questions or if additional follow-up information becomes available. PATHOLOGY CDX2 CLINICAL HISTORY CONSULT REQUESTED PATHOLOGY [facility] FINAL PERFORMING LAB Result Comment: Diagnostic i nterpretation performed at: [facility], [address] [place] [address], [facility] [address] [address] CLIA# [id number] Steamship Agent: Prateek Nick MD Performed By: #### [id number] # ### [facility] CLIA [id number] [address] [place] [address] [place] AMBULATORY VISIT SUMMARY Observed: 03/06 3:53 PM Status: F Source: [facility] Ambulatory Visit Summary PARK GUIDRY :1940 Visit Date:03/06/2024 Ambulatory Visit Instructions Your Diagnosis Pneumaturia Colovesical fistula Rising PSA following treatment for malignant neoplasm of prostate Prostate cancer OAB (overactive bladder) BPH with urinary obstruction Your Care Team Attending Physician - JOSE LYNN, Jaguar No Primary Care Physician - ALPESH DUNN DO This Is Your Medications List ciprofloxacin (Cipro 500 mg Tab) enzalutamide (enzalutamide 40 mg oral capsule) tamsulosin (Flomax 0.4 mg Cap) tolterodine (tolterodine 4 mg Cap-ER) Contact prescribing physician if questions or concerns alprazolam (alprazolam 0.25 mg Tab) amlodipine enzalutamide meloxicam (Mobic) Procedures Performed Cystoscopy (03/06/2024), Radiofrequency ablation of medial branch of lumbar [...] total knee. Discharge Vitals Heart Rate (Peripheral) 84 Respiratory Rate 16 Blood Pressure 146/90 Height 170 cm Height 67 in Weight 91 kg Weight 200.62 lb BMI 31.49 What to do next Scheduled Follow-Up Appointments Tuesday 9:45 AM EDT With: Jaguar BATRES MD [facility] [address] [place] [address]- You Need to Schedule the Following Appointments Follow Up with Jaguar BATRES MD, URL When: Where: [facility] [address], [place] [address]- Medications What How Much When Instructions Unchanged ciprofloxacin (Cipro 500 mg Tab) 1 Tablets By Mouth Every day take one tab day before procedure and one tab after procedure Unchanged enzalutamide (enzalutamide 40 mg oral capsule) 4 Capsules By Mouth Every day Duration: 90 Days Unchanged tamsulosin (Flomax 0.4 mg Cap) 1 Capsules By Mouth 2 times a day Unchanged tolterodine (tolterodine 4 mg Cap-ER) 1 [...] or concerns Medications and Immunizations Administered Given lidocaine Top 2% Gel w/Appl 6 mL, 6 mL, Topical. For: Pneumaturia, Rising PSA following treatment for malignant neoplasm of prostate, Prostate cancer, OAB (overactive bladder), BPH with urinary obstruction Allergies No Known Allergies Problems Ongoing - Any problem that you are currently receiving treatment for. Arthritis BPH with urinary obstruction Colovesical fistula Insomnia Knee osteoarthritis Lower back pain OAB (overactive bladder) Personal history of prostate cancer Pneumaturia Prostate cancer Rising PSA following treatment for malignant neoplasm of prostate Historical - Any problem that you are no longer receiving treatment for. Elevated PSA Insomnia Prostate cancer Patient Survey You may receive a survey via text or e-mail asking about your office visit. Please share your experience with us by completing your survey. We appreciate your feedback and thank you for choosing us for your care. Education Materials Cancer Screening for Males A cancer screening is a test or exam that checks for cancer. Work with your health care provider to create a cancer screening schedule that protects your health. Who should have screening? All people who are male should be considered for screening of certain cancers, including colorectal cancer, prostate cancer, lung cancer, and skin cancer. Your health care provider may recommend screenings for other types of cancer if: ??? You have had cancer before. ??? You have a family member with cancer. ??? You have genes that could increase the risk of cancer. ??? You have risk factors for certain cancers, such as current or past use of tobacco products or being overweight. What are the benefits of screening? Cancer screening is done to look for cancer in the very early stages, before it spreads and becomes harder to treat and before you would start to notice symptoms. Finding cancer early improves the chances of successful treatment. It may save your life. When should I be screened for cancer? When you should be screened for cancer depends on: ??? Your age. ??? Your medical history and your family's medical history. ??? Certain lifestyle factors, such as smoking or other use of tobacco products. ??? Environmental exposure, such as to asbestos. How is screening done? Colorectal cancer Colorectal cancer screening looks for cancer or for growths called polyps that often form before cancer starts. Tests to look for cancer or polyps include: ??? Colonoscopy or flexible sigmoidoscopy. For these procedures, a flexible tube with a small camera is inserted into the rectum. ??? CT colonography. This test uses X-rays and a contrast dye to check the colon for polyps. Tests to look for cancer in the stool (feces) include: ??? Guaiac-based fecal occult blood test (FOBT). This test can find blood in stool. It can be done at home with a kit. ??? Fecal immunochemical test (FIT). This test can find blood in stool. For this test, you will need to collect stool samples at home. ??? Stool DNA test. This test looks for blood in stool and any changes in DNA that can lead to colon cancer. For this test, you will need to collect a stool sample at home and send it to a lab. All adults should have screenings starting at 45 years old and continuing through 75 years old. For males 76???85 years old, the decision to be screened should be based on a person's preferences, life expectancy, overall health, and prior screening history. Your health care provider may recommend screening before 45 years old. You will have tests every 1???10 years, depending on your results and the type of screening test. People at increased risk should start screening at an earlier age. Talk with your health care provider about which screening test is right for you and how often you should be screened. Prostate cancer Prostate cancer screening is done with blood tests and a digital rectal exam. During this exam, a health care provider uses a gloved finger to check prostate size. You may need to be screened for prostate cancer if: ??? You have risk factors for prostate cancer, such as being an person or having a close family member with prostate cancer. ??? You have had gene changes or a genetic condition that was passed on to you from a parent (inherited). These gene changes or genetic conditions include BRCA1 or BRCA2 gene mutations or Napier syndrome. ??? You have symptoms of prostate cancer, such as problems urinating or problems getting or keeping an erection (erectile dysfunction). When you have been screened for prostate cancer, future screening may be recommended based on the results of your blood tests. Prostate cancer screening for males with average risk may start at 50 years old. Males with risk factors may need to be screened earlier, at 40???45 years old. Talk with your health care provider about whether screening is right for you and, if so, how often you should be screened. Lung cancer Lung cancer screening is done with a CT scan that looks for abnormal changes in the lungs. Discuss lung cancer screening with your health care provider if you are 50???80 years old and if any of the following apply to you: ??? You currently smoke. ??? You used to smoke heavily. ??? You have a smoking history of 1 pack of cigarettes a day for 20 years or 2 packs a day for 10 years. You may need to be screened every year if you smoke heavily or if you used to smoke. Skin cancer Skin cancer screening is done by checking the skin for unusual moles or spots and any changes in existing moles. Your health care provider should check your skin for signs of skin cancer at every physical exam. You should check your skin every month and tell your health care provider right away if anything looks unusual. Males with a iazxjx-rhpk-mgdwwf risk for skin cancer may want to see a academic guidance specialist (information security architect) for an annual body check. Where to find more information ??? [place] [employer]: cancer.org ??? Centers for Disease Control and Prevention: cdc.gov ??? National Cancer [place]: cancer.gov Contact a health care provider if: ??? You have concerns about any signs or symptoms of cancer. These may include: ? Skin problems. You may have: ? Moles of an unusual shape or color. ? Changes in existing moles. ? A sore on your skin that does not heal. ? Tiredness (fatigue) that does not go away. ? Losing weight without trying. ? Blood in your urine or stool. ? Problems with urination. You may have: ? Changes in urination habits. ? Painful urination. ? Painful ejaculation. ? Problems with coughing or breathing. These may include: ? Coughing or trouble breathing that does not go away. ? Coughing up blood. ? Frequent pain or cramping in your abdomen. This information is not intended to replace advice given to you by your health care provider. Make sure you discuss any questions you have with your health care provider. Document Revised: 02/01/2023 Document Reviewed: 08/16/2022 [employer] Patient Education ??? 2023 [employer]. UROLOGY OFFICE/CLINIC NOTE Observed: 3:29 PM Status: F Source: [facility] Urology Office/Clinic Note Chief Complaint Cysto HPI Staff Cysto d/t pneumaturia. Abx taken. History of Present Illness Tests reviewed: I have reviewed the previous health record information and history for this patient from Dr. Batres. I have reviewed and verified the staff [...] HPI. Physical Exam Vitals & Measurements HR: 84(Peripheral) RR: 16 BP: 146/90 HT: 67 in HT: 170 cm WT: 91 kg WT: 200.62 lb BMI: 31.49 General Appearance: alert, no distress, well nourished, well developed male. Procedure Operative Information Anesthesia Type: Local Procedure: Local Cystoscopy Complications: None Surgical risks, benefits, details of the procedure have been explained to the patient. Full informed consent has been obtained. Intraoperative Information Prepped: Patient is brought back to the endoscopy suite. Patient is placed in supine position. Patient prepped in the usual fashion with Betadine solution. 2% Xylocaine Jelly is placed per Urethra. After waiting several minutes, the Cystoscope is introduced. The Urethra is: Normal The Prostatic Urethra is: _Open but tons of debris seen coming from the bladder out into the prostatic urethra. The Bladder: _Multiple yellow large globules on the floor that were probably feculent material(doesn't seem like true bladder stones). Debris throughout the whole bladder. No tumors and no discrete site suggesting a fistula. Trabeculated: None (0) The Ureteral orifices: Show efflux of clear urine Specimens Removed: None Removal: Cystoscope is removed. The patient tolerated it well. Postoperative Information Patient is discharged home with antibiotic coverage. Follow up arranged. Assessment/Plan 1. Pneumaturia (R39.89: Other symptoms and signs involving the genitourinary system) CT AP w con 12/24/23 [facility] - No suspicious findings. CT AP w con 01[place]27/24 [facility] [place] Unremarkable [place]. Prostate seeds present. Irregular circumferential wall thickening of the distal sigmoid colon and rectum. Mild adjacent fat stranding. No perirectal or pericolonic adenopathy. No pelvic sidewall adenopathy. Pt had IO cysto today wo complications. 2. 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 See procedure section, highly suspect CVF however too much debris to visualize any fistula. Follow up after below or sooner if needed. Pt understands and agrees with plan. -Will send updated records to GI at [facility]. 3. Rising PSA following treatment for malignant neoplasm of prostate (R97.21: Rising PSA following treatment for malignant neoplasm of prostate) PSA: 01/19/21 - 0.10 07/22/21 - 3.30 01/20/22 - 0.52 07/21/22 - 1.07 01/12/23 - <0.13 08/12/23 - <0.13 01/23/24 - <0.1 TRUS/bx 08/24/16 - Shirland 7 (4+3) x 1 core 9% of core involvement. Pj 7 (3+4) x 1 core, 35% of core involvement. iPSA 35.73 & 10%. EBRT 2017. Brachytherapy 12/23/16. First Lupron inj 07/21/20. Most recent Lupron 01/30/24. Taking Enzalutamide 160 mg (4 tabs of 40 mg) qd, started 07/26/22. Follow up 07/20/24 for 6 m with PSA and Lupron or sooner if needed. Pt understands and agrees with plan. 4. Prostate cancer (C61: Malignant neoplasm of prostate) See #2. 5. OAB (overactive bladder) (N32.81: Overactive bladder) Taking Tolterodine ER 4mg qd for UUI. 6. BPH with urinary obstruction (N40.1: Benign prostatic hyperplasia with lower urinary tract symptoms) Taking Tamsulosin 0.4mg bid. Follow-up With When Contact Information JOSE LYNN, Jaguar oN, URL [facility] [address], [place] [address]- Additional Instructions: 07/20/24 for 6 m with PSA and Lupron Patient Education Cancer Screening for Males I, Kristin Dennis, personally scribed for Dr. Batres on 03/06/2024 15:29:22. . Documentation recorded by the scribe, Kristin Dennis, accurately reflects the services(s) I performed and decisions made by me. Authenticated by Dr. Batres on 03/06/2024 15:33:51. Problem List/Past Medical History Ongoing Arthritis BPH with urinary obstruction Colovesical fistula Insomnia Knee osteoarthritis Lower back pain OAB (overactive bladder) Personal history of prostate cancer Pneumaturia Prostate cancer Rising PSA following treatment for malignant neoplasm of prostate Historical Elevated PSA Insomnia Prostate cancer Procedure/Surgical History Cystoscopy (03/06/2024), Radiofrequency ablation of medial branch of lumbar [...] OPEN REDUCCTION RIGHT FEMUR, rt total knee. Medications alprazolam 0.25 mg Tab, 0.25 mg= 1 tab(s), Oral, Bedtime amlodipine, 5 mg, Oral, Daily Cipro 500 mg Tab, 500 mg= 1 tab(s), Oral, Daily enzalutamide, 160 mg, Oral enzalutamide 40 mg oral capsule, 160 mg= 4 cap(s), Oral, Daily, 3 refills Flomax 0.4 mg Cap, 0.4 mg= 1 cap(s), Oral, BID, 3 refills Mobic, 15 mg, Oral, Daily tolterodine 4 mg Cap-ER, 4 mg= 1 cap(s), Oral, Daily, 3 refills Allergies No Known Allergies Social History Alcohol - Denies Alcohol Use, 02/13/2013 Substance Abuse - Denies Substance Abuse, 02/13/2013 Tobacco - Denies Tobacco Use, 02/13/2013 Never (less than 100 in lifetime) Tobacco Use:. Never Smokeless Tobacco Use:., 03/06/2024 Family History Family history is negative Immunizations Vaccine Date Status Comments influenza virus vaccine, inactivated 01/14/2023 Recorded diphtheria/pertussis, acel/tetanus adult 12/17/2022 Given Early/Late Reason: Nursing Judgment influenza virus vaccine, inactivated 11/25/2021 Recorded diphtheria/pertussis, acel/tetanus adult 12/23/2020 Given Early/Late Reason: Patient Not Available/Off Unit SARS-CoV-2 (COVID-19) mRNA BNT-162b2 vax 03/27/2020 Recorded 2024-01-30: [id number] SARS-CoV-2 (COVID-19) mRNA BNT-162b2 vax 03/04/2020 Recorded 2024-01-30: [id number] influenza virus vaccine, inactivated 11/05/2019 Recorded pneumococcal 23-valent vaccine 10/23/2019 Recorded influenza virus vaccine, inactivated 10/23/2019 Recorded influenza virus vaccine, inactivated 01/12/2019 Recorded pneumococcal 13-valent vaccine 12/27/2017 Recorded influenza virus vaccine, inactivated 12/27/2017 Recorded influenza virus vaccine, inactivated 11/07/2016 Recorded pneumococcal 23-valent vaccine 02/07/2015 Recorded influenza virus vaccine, inactivated 11/04/2013 Recorded Result Comment: Electronical ly Signed By: Jaguar BATRES MD\.br\Date and Time Signed: 03/06/24 15:33 EST\.br\Electronically Co-Signed By: Kristin Dennis\.br\Date and Time Co-Signed: 03/06/24 15:29 EST PATIENT EDUCATION Observed: 03/06/2024 3:04 PM Status: F Source: [facility] Patient Education Oncology Cancer Screening for Males A cancer screening is a test or exam that checks for cancer. Work with your health care provider to create a cancer screening schedule that protects your health. Who should have screening? All people who are male should be considered for screening of certain cancers, including colorectal cancer, prostate cancer, lung cancer, and skin cancer. Your health care provider may recommend screenings for other types of cancer if: ??? You have had cancer before. ??? You have a family member with cancer. ??? You have genes that could increase the risk of cancer. ??? You have risk factors for certain cancers, such as current or past use of tobacco products or being overweight. What are the benefits of screening? Cancer screening is done to look for cancer in the very early stages, before it spreads and becomes harder to treat and before you would start to notice symptoms. Finding cancer early improves the chances of successful treatment. It may save your life. When should I be screened for cancer? When you should be screened for cancer depends on: ??? Your age. ??? Your medical history and your family's medical history. ??? Certain lifestyle factors, such as smoking or other use of tobacco products. ??? Environmental exposure, such as to asbestos. How is screening done? Colorectal cancer Colorectal cancer screening looks for cancer or for growths called polyps that often form before cancer starts. Tests to look for cancer or polyps include: ??? Colonoscopy or flexible sigmoidoscopy. For these procedures, a flexible tube with a small camera is inserted into the rectum. ??? CT colonography. This test uses X-rays and a contrast dye to check the colon for polyps. Tests to look for cancer in the stool (feces) include: ??? Guaiac-based fecal occult blood test (FOBT). This test can find blood in stool. It can be done at home with a kit. ??? Fecal immunochemical test (FIT). This test can find blood in stool. For this test, you will need to collect stool samples at home. ??? Stool DNA test. This test looks for blood in stool and any changes in DNA that can lead to colon cancer. For this test, you will need to collect a stool sample at home and send it to a lab. All adults should have screenings starting at 45 years old and continuing through 75 years old. For males 76?85 years old, the decision to be screened should be based on a person's preferences, life expectancy, overall health, and prior screening history. Your health care provider may recommend screening before 45 years old. You will have tests every 1?10 years, depending on your results and the type of screening test. People at increased risk should start screening at an earlier age. Talk with your health care provider about which screening test is right for you and how often you should be screened. Prostate cancer Prostate cancer screening is done with blood tests and a digital rectal exam. During this exam, a health care provider uses a gloved finger to check prostate size. You may need to be screened for prostate cancer if: ??? You have risk factors for prostate cancer, such as being an person or having a close family member with prostate cancer. ??? You have had gene changes or a genetic condition that was passed on to you from a parent (inherited). These gene changes or genetic conditions include BRCA1 or BRCA2 gene mutations or Napier syndrome. ??? You have symptoms of prostate cancer, such as problems urinating or problems getting or keeping an erection (erectile dysfunction). When you have been screened for prostate cancer, future screening may be recommended based on the results of your blood tests. Prostate cancer screening for males with average risk may start at 50 years old. Males with risk factors may need to be screened earlier, at 40?45 years old. Talk with your health care provider about whether screening is right for you and, if so, how often you should be screened. Lung cancer Lung cancer screening is done with a CT scan that looks for abnormal changes in the lungs. Discuss lung cancer screening with your health care provider if you are 50?80 years old and if any of the following apply to you: ??? You currently smoke. ??? You used to smoke heavily. ??? You have a smoking history of 1 pack of cigarettes a day for 20 years or 2 packs a day for 10 years. You may need to be screened every year if you smoke heavily or if you used to smoke. Skin cancer Skin cancer screening is done by checking the skin for unusual moles or spots and any changes in existing moles. Your health care provider should check your skin for signs of skin cancer at every physical exam. You should check your skin every month and tell your health care provider right away if anything looks unusual. Males with a hsrcts-tiuh-rgqhkx risk for skin cancer may want to see a academic guidance specialist (information security architect) for an annual body check. Where to find more information ??? [place] [employer]: cancer.org ??? Centers for Disease Control and Prevention: cdc.gov ??? National Cancer [place]: cancer.gov Contact a health care provider if: ??? You have concerns about any signs or symptoms of cancer. These may include: ? Skin problems. You may have: ? Moles of an unusual shape or color. ? Changes in existing moles. ? A sore on your skin that does not heal. ? Tiredness (fatigue) that does not go away. ? Losing weight without trying. ? Blood in your urine or stool. ? Problems with urination. You may have: ? Changes in urination habits. ? Painful urination. ? Painful ejaculation. ? Problems with coughing or breathing. These may include: ? Coughing or trouble breathing that does not go away. ? Coughing up blood. ? Frequent pain or cramping in your abdomen. This information is not intended to replace advice given to you by your health care provider. Make sure you discuss any questions you have with your health care provider. Document Revised: 02/01/2023 Document Reviewed: 08/16/2022 [employer] Patient Education ? 2023 [employer] [place] Observed: 03/06/2024 12:00 AM Status: COMPLETED Source: [facility] Telephone ([facility]) PARK GUIDRY ([id number]) 1940 M Date Time Provider Department 03/06/24 DONNA SINGH [facility] During your visit today, we recorded the following information about you: Celia Garcia 03/06/2024 10:46 AM Signed Unable to leave VM will try again later Allergies As of Date: 03/06/2024 (No Known Allergies) Date Reviewed: 08/17/2017 Reviewed by: Funmi Santos - Fully Assessed Reason for Visit: Appointment [[id number]] Prescriptions as of 03/06/2024 - amLODIPine (NORVASC) 5 mg tablet - tamsulosin ER (FLOMAX) 0.4 mg cp24 Take 0.4 mg by mouth twice daily. - ALPRAZolam (XANAX) 0.25 mg tablet - meloxicam (MOBIC) 15 mg tablet Problem List As Of Date 03/06/2024 Noted Resolved Prostate cancer (HCC) [C61] 09/29/2016 History of prostate cancer [Z85.46] 08/17/2017 Encounter Status:Closed by CELIA GARCIA on 03/06/24 L Observed: 03/02/2024 8:50 AM Status: F Source: [facility] ----- ------- Specimen: [id number] Received: 03/02/24 Status: KATLYN Appiah Num: [id number] Spec Type: Surgical Subm Dr: Lars Avelar MD Tissues: A Colon Biopsy (RECTAL LESION BX) Procedures: HE/2, Gross/Micro L4, AE1-AE3 ----- ------- Age/ Patient Sex Location Account Attending Physician ----- ------- Park Guidry/M [id number] Lars Avelar MD ----- ------- SPEC NUM: [id number] RECD: 03/02/24 STATUS: KATLYN APPIAH NUM: [id number] JONI: 03/02/[address] [facility] DR: Lars Avelar MD ENTERED: 03/02/24 [facility] DR: DYLAN TYPE: Surgical DEPT: S ORDERED: HE/2, Gross/Micro L4, AE1-AE3 ORDERED: HE/2, Gross/Micro L4, AE1-AE3 Supplemental Report Addendum 1 Entered: 03/08/240585 Supplemental for findings of consultation report from [facility] -Ulcer with reactive stromal atypia, negative for carcinoma Addendum Signed (signature on file) Chin-Hany Luevano MD 03/08/24 1637 ----- ------- Pathological Diagnosis Rectal lesion biopsy -Gross only examination Note: -The case was previously submitted to [facility] or external consultation service by Dr. Leyda Heaton ----- ------- Specimen: [id number] Received: 03/02/24 Status: KATLYN Chaveztrevon Num: [id number] Spec Type: Surgical Subm Dr: Lars Avelar MD Tissues: A Colon Biopsy (RECTAL LESION BX) Procedures: HE/2, Gross/Micro L4, AE1-AE3 ----- ------- Patient: Park Guidry [id number] (Continued) ----- ------- Specimen: [id number] Received: 03/02/24 (Continued) Signed (signature on file) Mei Luevano MD 03/08/24 1634 ----- ------- Specimen: S2 Received: 03/02/24 Status: KATLYN Appiah Num: [id number] Spec Type: Surgical Subm Dr: Lars Avelar MD Tissues: A Colon Biopsy (RECTAL LESION BX) Procedures: HE/2, Gross/Micro L4, AE1-AE3 ----- ------- Patient: Park Guidry [id number] (Continued) ----- ------- Specimen: S2 Received: 03/02/24 (Continued) Clinical Information Rectal ulcer Gross Description Part A is received in formalin labeled with the patients name, date of , and rectal lesion BX are 3 lucero-white, focally erythematous, friable, 0.2, 0.3 and 0.3 cm in greatest dimension tissue bits. The specimen is entirely submitted in a single cassette. (1, ns, [id number]) JG CPT Codes 85014 ----- ------- ----- ------- Specimen: [id number] Received: 03/02/24 Status: KATLYN Appiah Num: [id number] Spec Type: Surgical Subm Dr: Lars Avelar MD Tissues: A Colon Biopsy (RECTAL LESION BX) Procedures: HE/2, Gross/Micro L4, AE1-AE3 ----- ------- Patient: Park Guidry [id number] (Continued) ----- ------- Signed (signature on file) Brian Luevano MD 03/08/24 1634 XR FEMUR RIGHT (MIN 2 VIEWS) Observed: 1 04/07/2023 1:32 PM Status: F Source: [facility] History: Right femur IMN Comparison: 03/08/2023 Findings: 2 views (AP, lateral) of the [...] the most proximal aspect can be seen. Otherwise alignment is well- maintained. Prior retained hardware from previous ORIF can be seen. Total knee arthroplasty with maintained alignment from previous and no obvious signs of loosening. Impression: Healing right femoral shaft fracture status post IMN. Most distal screw does appear to have bent. Stable previous hardware and total knee arthroplasty. Interpreted by: Mia Douglas DO Phillips, Seth A, DO Signed by: Florian Sanchez DO 02/05/24 Final result UROLOGY OFFICE/CLINIC NOTE Observed: 10:50 AM Status: F Source: [facility] Urology Office/Clinic Note Chief Complaint 6mo f/u & Lupron HPI Staff 83yr old male pt here for 6mo f/u with Lupron inj and PSA. Last injection 08/15/23. No problems today. Wanted to report having colonoscopy done Tuesday, and was told he had ulcer on his rectum, and had biopsy done. Previous Dx: rising PSA following treatment for malignant neoplasm of prostate, urge incontinence, BPH w/urinary obstruction *enzalutamide 160mg qd, tolterodine ER 4mg qd (decreased from 6mg qd at last OV), tamsulosin 0.4mg bid PSA: 01/19/21 - 0.10 07/22/21 - 3.30 01/20/22 - 0.52 07/21/22 - 1.07 01/12/23 - <0.13 08/12/23 - <0.13 01/23/24 - <0.1 Dysuria: denies Incomplete bladder emptying: yes Hematuria: denies Frequency: about every hour Urgency: denies Nocturia: 3-4x per night Stream: okay stream, states he does not feel anything Leaking: denies Post void dripping: denies Wearing pads/ Depends: wears Depends Urge incontinence: denies Stress incontinence: denies Incontinence without Sensory Awareness: denies Abdominal pain: denies Flank pain: denies Sexual complaints: denies History of Present Illness Tests reviewed: reviewed UA, PSAs, CT scan I have reviewed the previous health record information and history for this patient from Dr. Batres. I have reviewed and verified the staff [...] See HPI. Physical Exam Vitals & Measurements T: 37 ???C(Oral) HR: 78(Peripheral) RR: 18 BP: 124/78 HT: 67 in HT: 170 cm WT: 91 kg WT: 200.62 lb BMI: 31.49 General Appearance: alert, no distress, well nourished, well developed male. Assessment/Plan 1. Rising PSA following treatment for malignant neoplasm of prostate (R97.21: Rising PSA following treatment for malignant neoplasm of prostate) PSA: 01/19/21 - 0.10 07/22/21 - 3.30 01/20/22 - 0.52 07/21/22 - 1.07 01/12/23 - <0.13 08/12/23 - <0.13 01/23/24 - <0.1 TRUS/bx 08/24/16 - Pj 7 (4+3) x 1 core 9% of core involvement. Pj 7 (3+4) x 1 core, 35% of core involvement. iPSA 35.73 & 10%. EBRT 2017. Brachytherapy 12/23/16. First Lupron inj 07/21/20. Most recent Lupron 08/15/23. Taking Enzalutamide 160 mg (4 tabs of 40 mg) qd, started 06/19/23. Shares he did not take Enzalutamide x4 days since he had a colonoscopy and was worried about possible interaction/SEs. Has since restarted taking. PSA remains nearly undetectable. Will continue to monitor. Lupron 45 mgIM injection given today with no complications. Left glute. Has occasional hot flashes. -Cont Enzalutamide -PSA and Lupron in 6 mos 2. Prostate cancer (C61: Malignant neoplasm of prostate) See #2. 3. Urge incontinence (N39.41: Urge incontinence) Decreased Tolterodine ER from 6mg to 4mg qd at prior OV as he had difficulty controlling BMs and urination. Still having occasional accidents. Wears pads. Shares he tries to void as soon as he gets the urge. -Cont Tolterodine ER 4mg qd -sched cysto 4. BPH with urinary obstruction (N40.1: Benign prostatic hyperplasia with lower urinary tract symptoms) S/p Cysto 12/2017. CT AP w con 12/24/23 [facility] - No suspicious findings. CT AP w con 01/27/24 [facility] [place] Unremarkable bladder. Prostate seeds present. Irregular circumferential wall thickening of the distal sigmoid colon and rectum. Mild adjacent fat stranding. No perirectal or pericolonic adenopathy. No pelvic sidewall adenopathy. Taking Tamsulosin 0.4mg bid. Occasionally has a good stream. Unsure if he empties. Reports he has bubbles when he voids. States bubbles are as he voids vs in the toilet. Advised pt a cystoscopy will need done to further evaluate. must r/o a colovesical fistula. Discussed possibility of relation to rectal ulcer that was found per recent colonoscopy. -Cont Tamsulosin wo changes -Will schedule cystoscopy. The risks and benefits for cystoscopy have been discussed. The risks include bleeding, infection, and irritation of the bladder and urinary channel, among others. The patient, after being informed of procedural details and after questions have been answered, wishes to proceed. Full informed consent has been obtained. Will order Local anesthesia. 5. Pneumaturia (R39.89: Other symptoms and signs involving the genitourinary system) See #4. Follow-up With When Contact Information JOSE LYNN, Jaguar No, URL [facility] [address] , [place] [address]- [phone] Additional Instructions: sched cysto Patient Education Cystoscopy I, Sarah Beth Greene, personally scribed for Dr. Batres on 01/30/2024 10:53:19. . Documentation recorded by the scribe, Sarah Beth Greene, accurately reflects the services(s) I performed and decisions made by me. Authenticated by Dr. Batres on 01/30/2024 10:58:42. Problem List/Past Medical History Ongoing Arthritis BPH with urinary obstruction Feeling of incomplete bladder emptying Frequency of urination Hematuria Insomnia Knee osteoarthritis Lower back pain Nocturia Personal history of prostate cancer Pneumaturia Post-void dribbling Prostate cancer Rising PSA following treatment for malignant neoplasm of prostate Urge incontinence Urge incontinence of urine Urgency of urination Urinary urgency Weak urine stream Historical Elevated PSA Insomnia Prostate cancer Procedure/Surgical History Radiofrequency ablation of [...] OPEN REDUCCTION RIGHT FEMUR, rt total knee. Medications alprazolam 0.25 mg Tab, 0.25 mg= 1 tab(s), Oral, Bedtime amlodipine, 5 mg, Oral, Daily Cipro 500 mg Tab, 500 mg= 1 tab(s), Oral, Daily enzalutamide, 160 mg, Oral enzalutamide 40 mg oral capsule, 160 mg= 4 cap(s), Oral, Daily, 3 refills Flomax 0.4 mg Cap, 0.4 mg= 1 cap(s), Oral, BID, 3 refills Mobic, 15 mg, Oral, Daily tolterodine 4 mg Cap-ER, 4 mg= 1 cap(s), Oral, Daily, 3 refills Allergies No Known Allergies Social History Alcohol - Denies Alcohol Use, 02/13/2013 Substance Abuse - Denies Substance Abuse, 02/13/2013 Tobacco - Denies Tobacco Use, 02/13/2013 Never (less than 100 in lifetime) Tobacco Use:. Never Smokeless Tobacco Use:., 01/30/2024 Family History Family history is negative Immunizations Vaccine Date Status Comments influenza virus vaccine, inactivated 01/14/2023 Recorded diphtheria/pertussis, acel/tetanus adult 12/17/2022 Given Early/Late Reason: Nursing Judgment influenza virus vaccine, inactivated 11/25/2021 Recorded diphtheria/pertussis, acel/tetanus adult 12/23/2020 Given Early/Late Reason: Patient Not Available/Off Unit SARS-CoV-2 (COVID-19) mRNA BNT-162b2 vax 03/27/2020 Recorded 2024-01-30: TPV80 SARS-CoV-2 (COVID-19) mRNA BNT-162b2 vax 03/04/2020 Recorded 2024-01-30: TPV80 influenza virus vaccine, inactivated 11/05/2019 Recorded pneumococcal 23-valent vaccine 10/23/2019 Recorded influenza virus vaccine, inactivated 10/23/2019 Recorded influenza virus vaccine, inactivated 01/12/2019 Recorded pneumococcal 13-valent vaccine 12/27/2017 Recorded influenza virus vaccine, inactivated 12/27/2017 Recorded influenza virus vaccine, inactivated 11/07/2016 Recorded pneumococcal 23-valent vaccine 02/07/2015 Recorded influenza virus vaccine, inactivated 11/04/2013 Recorded Lab Results Ambulatory Point of Care Results Bilirubin Urine Dipstick: Negative (01/30/24 09:58:00) Blood Urine Dipstick: Trace-intact (01/30/24 09:58:00) Glucose Urine Dipstick: Negative (01/30/24 09:58:00) Ketones Urine Dipstick: Negative (01/30/24 09:58:00) Leukocytes Urine Dipstick: 2+ Moderate (01/30/24 09:58:00) Nitrite Urine Dipstick: Positive (01/30/24 09:58:00) Protein Urine Dipstick: 1+ (30 mg/dl) (01/30/24 09:58:00) Specific Melber Urine Dipstick: 1.020 (01/30/24 09:58:00) Urine Appearance Urine Dipstick: Slightly cloudy (01/30/24 09:58:00) Urine Color Urine Dipstick: Light yellow (01/30/24 09:58:00) Urobilinogen Urine Dipstick: Normal 0.2-1 EU/dl (01/30/24 09:58:00) Result Comment: Electronical ly Signed By: Jaguar BATRES MD\.br\Date and Time Signed: 01/30/24 10:58 EST\.br\Electronically Co-Signed By: Sarah Beth Greene\.br\Date and Time Co-Signed: 01/30/24 10:53 EST AMBULATORY VISIT SUMMARY Observed: 01/29 10:49 AM Status: F Source: [facility] Ambulatory Visit Summary PARK GUIDRY :1940 Visit Date:01/30/2024 Ambulatory Visit Instructions Your Diagnosis Rising PSA following treatment for malignant neoplasm of prostate Prostate cancer Urge incontinence BPH with urinary obstruction Pneumaturia Your Care Team Attending Physician - Jaguar BATRES MD Primary Care Physician - SHAUN GORE, ALPESH This Is Your Medications List ciprofloxacin (Cipro 500 mg Tab) enzalutamide (enzalutamide 40 mg oral capsule) tamsulosin (Flomax 0.4 mg Cap) tolterodine (tolterodine 4 mg Cap-ER) Contact prescribing [...] RIGHT FEMUR, rt total knee. Discharge Vitals Temperature (Oral) 37 ???C Heart Rate (Peripheral) 78 Respiratory Rate 18 Blood Pressure 124/78 Height 170 cm Height 67 in Weight 91 kg Weight 200.62 lb BMI 31.49 What to do next You Need to Schedule the Following Appointments Follow Up with JOSE LYNN, GLORIA Brooks When: Comments: sched cysto Where: [facility] [address] , [place] [address] [phone] Medications What How Much When Instructions New ciprofloxacin (Cipro 500 mg Tab) 1 Tablets By Mouth Every day take one tab day before procedure and one tab after procedure Pickup at [facility] Unchanged enzalutamide (enzalutamide 40 mg oral capsule) 4 Capsules By Mouth Every day Duration: 90 Days Unchanged tamsulosin (Flomax 0.4 mg Cap) 1 Capsules By Mouth 2 times a day Unchanged tolterodine (tolterodine 4 mg Cap-ER) 1 [...] Contact prescribing physician if questions or concerns Pharmacy Information [facility]: [address] [place] [phone] Medications and Immunizations Administered Given Lupron Depot [...] pain Nocturia Personal history of prostate cancer Pneumaturia Post-void dribbling Prostate cancer Rising PSA following treatment for malignant neoplasm of prostate Urge incontinence Urge incontinence of urine Urgency of urination Urinary urgency Weak urine stream Historical - Any problem that you are no longer receiving treatment for. Elevated PSA Insomnia Prostate cancer Patient Survey You may receive a survey via text or e-mail asking about your office visit. Please share your experience with us by completing your survey. We appreciate your feedback and thank you for choosing us for your care. Education Materials Cystoscopy Cystoscopy is a procedure that is used to help diagnose and sometimes treat conditions that affect the lower urinary tract. The lower urinary tract includes the bladder and the urethra. The urethra is the tube that drains urine from the bladder. Cystoscopy is done using a thin, tube-shaped instrument with a light and camera at the end (cystoscope). The cystoscope may be hard or flexible, depending on the goal of the procedure. The cystoscope is inserted through the urethra, into the bladder. Cystoscopy may be recommended if you have: ??? Urinary tract infections that keep coming back. ??? Blood in the urine (hematuria). ??? An inability to control when you urinate (urinary incontinence) or an overactive bladder. ??? Unusual cells found in a urine sample. ??? A blockage in the urethra, such as a urinary stone. ??? Painful urination. ??? An abnormality in the bladder found during an intravenous pyelogram (IVP) or CT scan. Cystoscopy may also be done to remove a sample of tissue to be examined under a microscope (biopsy). Tell a health care provider about: ??? Any allergies you have. ??? All medicines you are taking, including vitamins, herbs, eye drops, creams, and pexq-zau-ftdlyhv medicines. ??? Any problems you or family members have had with anesthetic medicines. ??? Any blood disorders you have. ??? Any surgeries you have had. ??? Any medical conditions you have. ??? Whether you are or may be . What are the risks? Generally, this is a safe procedure. However, problems may occur, including: ??? Infection. ??? Bleeding. ??? Allergic reactions to medicines. ??? Damage to other structures or organs. What happens before the procedure? Medicines Ask your health care provider about: ??? Changing or stopping your regular medicines. This is especially important if you are taking diabetes medicines or blood thinners. ??? Taking medicines such as aspirin and ibuprofen. These medicines can thin your blood. Do not take these medicines unless your health care provider tells you to take them. ??? Taking zutx-nch-hwyypxd medicines, vitamins, herbs, and supplements. Tests You may have an exam or testing, such as: ??? X-rays of the bladder, urethra, or kidneys. ??? CT scan of the abdomen or pelvis. ??? Urine tests to check for signs of infection. General instructions ??? Follow instructions from your health care provider about eating or drinking restrictions. ??? Ask your health care provider what steps will be taken to help prevent infection. These steps may include: ? Washing skin with a germ-killing soap. ? Taking antibiotic medicine. ??? Plan to have a responsible adult take you home from the hospital or clinic. What happens during the procedure? You will be given one or more of the following: ? A medicine to help you relax (sedative). ? A medicine to numb the area (local anesthetic). ??? The area around the opening of your urethra will be cleaned. ??? The cystoscope will be passed through your urethra into your bladder. ??? Germ-free (sterile) fluid will flow through the cystoscope to fill your bladder. The fluid will stretch your bladder so that your health care provider can clearly examine your bladder garvey. ??? Your doctor will look at the urethra and bladder. Your doctor may take a biopsy or remove stones. ??? The cystoscope will be removed, and your bladder will be emptied. The procedure may vary among health care providers and hospitals. What can I expect after the procedure? After the procedure, it is common to have: ??? Some soreness or pain in your abdomen and urethra. ??? Urinary symptoms. These include: ? Mild pain or burning when you urinate. Pain should stop within a few minutes after you urinate. This may last for up to 1 week. ? A small amount of blood in your urine for several days. ? Feeling like you need to urinate but producing only a small amount of urine. Follow these instructions at home: Medicines ??? Take zqht-fbv-cojxqbj and prescription medicines only as told by your health care provider. ??? If you were prescribed an antibiotic medicine, take it as told by your health care provider. Do not stop taking the antibiotic even if you start to feel better. General instructions ??? Return to your normal activities as told by your health care provider. Ask your health care provider what activities are safe for you. ??? If you were given a sedative during the procedure, it can affect you for several hours. Do not drive or operate machinery until your health care provider says that it is safe. ??? Watch for any blood in your urine. If the amount of blood in your urine increases, call your health care provider. ??? Follow instructions from your health care provider about eating or drinking restrictions. ??? If a tissue sample was removed for testing (biopsy) during your procedure, it is up to you to get your test results. Ask your health care provider, or the department that is doing the test, when your results will be ready. ??? Drink enough fluid to keep your urine pale yellow. ??? Keep all follow-up visits. This is important. Contact a health care provider if: ??? You have pain that gets worse or does not get better with medicine, especially pain when you urinate. ??? You have trouble urinating. ??? You have more blood in your urine. Get help right away if: ??? You have blood clots in your urine. ??? You have abdominal pain. ??? You have a fever or chills. ??? You are unable to urinate. Summary ??? Cystoscopy is a procedure that is used to help diagnose and sometimes treat conditions that affect the lower urinary tract. ??? Cystoscopy is done using a thin, tube-shaped instrument with a light and camera at the end. ??? After the procedure, it is common to have some soreness or pain in your abdomen and urethra. ??? Watch for any blood in your urine. If the amount of blood in your urine increases, call your health care provider. ??? If you were prescribed an antibiotic medicine, take it as told by your health care provider. Do not stop taking the antibiotic even if you start to feel better. This information is not intended to replace advice given to you by your health care provider. Make sure you discuss any questions you have with your health care provider. Document Revised: 10/07/2021 Document Reviewed: 09/05/2020 [employer] Patient Education ??? 2023 [employer]. PATIENT EDUCATION Observed: 01/30/2024 10:43 AM Status: F Source: [facility] Patient Education Urology Cystoscopy Cystoscopy is a procedure that is used to help diagnose and sometimes treat conditions that affect the lower urinary tract. The lower urinary tract includes the bladder and the urethra. The urethra is the tube that drains urine from the bladder. Cystoscopy is done using a thin, tube-shaped instrument with a light and camera at the end (cystoscope). The cystoscope may be hard or flexible, depending on the goal of the procedure. The cystoscope is inserted through the urethra, into the bladder. Cystoscopy may be recommended if you have: ??? Urinary tract infections that keep coming back. ??? Blood in the urine (hematuria). ??? An inability to control when you urinate (urinary incontinence) or an overactive bladder. ??? Unusual cells found in a urine sample. ??? A blockage in the urethra, such as a urinary stone. ??? Painful urination. ??? An abnormality in the bladder found during an intravenous pyelogram (IVP) or CT scan. Cystoscopy may also be done to remove a sample of tissue to be examined under a microscope (biopsy). Tell a health care provider about: ??? Any allergies you have. ??? All medicines you are taking, including vitamins, herbs, eye drops, creams, and brjx-otp-ewdwgdk medicines. ??? Any problems you or family members have had with anesthetic medicines. ??? Any blood disorders you have. ??? Any surgeries you have had. ??? Any medical conditions you have. ??? Whether you are or may be . What are the risks? Generally, this is a safe procedure. However, problems may occur, including: ??? Infection. ??? Bleeding. ??? Allergic reactions to medicines. ??? Damage to other structures or organs. What happens before the procedure? Medicines Ask your health care provider about: ??? Changing or stopping your regular medicines. This is especially important if you are taking diabetes medicines or blood thinners. ??? Taking medicines such as aspirin and ibuprofen. These medicines can thin your blood. Do not take these medicines unless your health care provider tells you to take them. ??? Taking sviv-rpn-qvflwgp medicines, vitamins, herbs, and supplements. Tests You may have an exam or testing, such as: ??? X-rays of the bladder, urethra, or kidneys. ??? CT scan of the abdomen or pelvis. ??? Urine tests to check for signs of infection. General instructions ??? Follow instructions from your health care provider about eating or drinking restrictions. ??? Ask your health care provider what steps will be taken to help prevent infection. These steps may include: ? Washing skin with a germ-killing soap. ? Taking antibiotic medicine. ??? Plan to have a responsible adult take you home from the hospital or clinic. What happens during the procedure? You will be given one or more of the following: ? A medicine to help you relax (sedative). ? A medicine to numb the area (local anesthetic). ??? The area around the opening of your urethra will be cleaned. ??? The cystoscope will be passed through your urethra into your bladder. ??? Germ-free (sterile) fluid will flow through the cystoscope to fill your bladder. The fluid will stretch your bladder so that your health care provider can clearly examine your bladder garvey. ??? Your doctor will look at the urethra and bladder. Your doctor may take a biopsy or remove stones. ??? The cystoscope will be removed, and your bladder will be emptied. The procedure may vary among health care providers and hospitals. What can I expect after the procedure? After the procedure, it is common to have: ??? Some soreness or pain in your abdomen and urethra. ??? Urinary symptoms. These include: ? Mild pain or burning when you urinate. Pain should stop within a few minutes after you urinate. This may last for up to 1 week. ? A small amount of blood in your urine for several days. ? Feeling like you need to urinate but producing only a small amount of urine. Follow these instructions at home: Medicines ??? Take isyo-rxq-cgocgnz and prescription medicines only as told by your health care provider. ??? If you were prescribed an antibiotic medicine, take it as told by your health care provider. Do not stop taking the antibiotic even if you start to feel better. General instructions ??? Return to your normal activities as told by your health care provider. Ask your health care provider what activities are safe for you. ??? If you were given a sedative during the procedure, it can affect you for several hours. Do not drive or operate machinery until your health care provider says that it is safe. ??? Watch for any blood in your urine. If the amount of blood in your urine increases, call your health care provider. ??? Follow instructions from your health care provider about eating or drinking restrictions. ??? If a tissue sample was removed for testing (biopsy) during your procedure, it is up to you to get your test results. Ask your health care provider, or the department that is doing the test, when your results will be ready. ??? Drink enough fluid to keep your urine pale yellow. ??? Keep all follow-up visits. This is important. Contact a health care provider if: ??? You have pain that gets worse or does not get better with medicine, especially pain when you urinate. ??? You have trouble urinating. ??? You have more blood in your urine. Get help right away if: ??? You have blood clots in your urine. ??? You have abdominal pain. ??? You have a fever or chills. ??? You are unable to urinate. Summary ??? Cystoscopy is a procedure that is used to help diagnose and sometimes treat conditions that affect the lower urinary tract. ??? Cystoscopy is done using a thin, tube-shaped instrument with a light and camera at the end. ??? After the procedure, it is common to have some soreness or pain in your abdomen and urethra. ??? Watch for any blood in your urine. If the amount of blood in your urine increases, call your health care provider. ??? If you were prescribed an antibiotic medicine, take it as told by your health care provider. Do not stop taking the antibiotic even if you start to feel better. This information is not intended to replace advice given to you by your health care provider. Make sure you discuss any questions you have with your health care provider. Document Revised: 10/07/2021 Document Reviewed: 09/05/2020 [employer] Patient Education ? [address] [employer] ABDOMEN PELVIS W CON Observed: 2023 2:31 PM Status: COMPLETED Source: [facility] [place] [id number] CT Scan Report Signed Patient: Park Guidry MR#: [id number] : 1940 Acct:[id number] Age/Sex: 83 / M ADM Date: 01/27/24 Loc: Room: Type: [facility] Attending Dr: Lars Avelar MD Copies to: Lars Avelar MD Ordering Provider: Lars Avelar MD Date of Service: 01/27/24 CT/CT chest w con: Giant rectal ulcer, 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 ([id number]) CT/CT abdomen pelvis w con: Giant rectal ulcer, 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 CT Chest, Abdomen and Pelvis with contrast TECHNIQUE: Axial imaging with 2-D reconstruction. 90 cc of Isovue-300The CT exam was performed using one or more the following dose reduction techniques: Automated exposure control, adjustment of the MA and/or Kv according to patient size, or use of the iterative reconstruction technique. History: Giant rectal ulcer suspicious for malignancy. History of prostate cancer with osseous seed placement COMPARISON: None THYROID: No significant thyroid abnormality identified. AIRWAY: Central airway is patent. ESOPHAGUS: Esophagus normal course and caliber. HEART: Heart is not enlarged. PERICARDIAL EFFUSION: None CORONARY ARTERY CALCIFICATION: None MEDIASTINUM: Mildly prominent mediastinal lymph nodes with largest in the pretracheal region having a short axis dimension of 11 mm. HILAR REGION: Small hilar lymph nodes. THORACIC AORTA: No thoracic aortic aneurysm or dissection. No atherosclerosis LUNG INTERSTITIUM: No infiltrate or congestion identified. Mild atelectasis. PLEURAL EFFUSION No pleural effusion identified. PNEUMOTHORAX: No pneumothorax seen. LUNG NODULE: No lung nodules identified. CHEST WALL: No chest wall abnormality seen. The bony chest intact. LIVER: No hepatic mass or intrahepatic biliary ductal dilatation is identified. Hepatic steatosis GALLBLADDER: No gallbladder abnormalities identified. BILE DUCTS: No biliary duct dilatation identified. SPLEEN: Normal PANCREAS: Unremarkable ADRENAL GLANDS: The adrenal glands are unremarkable. KIDNEYS: Unremarkable ABDOMINAL AORTA: The abdominal aorta is normal. RETROPERITONEUM: No significant retroperitoneal abnormalities identified. STOMACH:Nondistended SMALL BOWEL: The small bowel loops are nondistended. APPENDIX: The appendix is normal. COLON: Irregular circumferential wall thickening of the distal sigmoid colon and rectum. Mild adjacent fat stranding. No perirectal or pericolonic adenopathy. No pelvic sidewall adenopathy. URINARY BLADDER: Urinary bladder is unremarkable. REPRODUCTIVE STRUCTURES: Prostate seeds present. FREE AIR: None FREE FLUID: None ABDOMINAL WALL: No subcutaneous soft tissue abnormality identified. INGUINAL HERNIA: None BONES:Left hip arthroplasty. Right hip fixation hardware. Thoracolumbar S-shaped scoliosis. Thoracolumbar degenerative change CT/CT chest w con IMPRESSION: Circumferential irregular wall thickening of the distal sigmoid colon and rectum likely corresponding with patient's history of rectal ulceration and suspicion for malignancy. No adjacent enlarged lymph nodes. No distal metastatic disease of the chest abdomen or pelvis. PRELIMINARY RESULTS: None given Impression dictated by: Franky Green M.D.01/27/2024 2:46 PM Dictation Location: [place] [address] Transcribed By: PWS 01/27/24 1446 Dictated By: Franky Green DO 01/27/24 1431 Signed By: <Electronically signed by Franky Green DO in OV> 01/27/24 1446 BLOOD UREA NITROGEN Collected: 01/27/2024 1:[address] atus: F Source: [facility] TYPE CODE TESTS RESULT OUT OF RANGE REFERENCE UNITS LAB BUN Blood Urea Nitrogen 20 Normal 7-25 mg/dL Performed By: #### JARRED SILVER N #### [facility] [address] [place], [place] [id number] [facility] CREATININE Collected: 01/27/2024 1:30 PM Status: F Source: [facility] TYPE CODE TESTS RESULT OUT OF RANGE REFERENCE UNITS LAB CREATT Creatinine 0.97 Normal 0.70-1.30 mg/dL LAB GFReNR Estimated GFR >60.0 mL/Min LAB CRCLPHA Creatinine Clr Calc Pharmacy 53.87 Result Comment: PERFORMED BY : [place] [address] PATHOLOGIST DIVIDING MACHINE OPERATOR RADHA ZHENG M.D. Performed By: #### JARRED SILVER N #### [facility] [address] [place], [place] [id number] [facility] PATHOLOGY REQUEST FOR LAB JOEL Collected: 01/27/2024 12:29 PM Status: F Source: [facility] Order Comment: PATHOLOGY GI SPECIMEN TYPE CODE TESTS RESULT OUT OF RANGE REFERENCE UNITS LAB [facility] Pathology Request for Lab Joel Result Comment: See report. Scanned copy available in EMR. PERFORMED BY: [place] [id number] PATHOLOGIST DIVIDING MACHINE OPERATOR RADHA ZHENG M.D. Performed By: #### [facility] #### [facility] [address] XR FEMUR RIGHT (MIN 2 VIEWS) Observed: 1 2:33 PM Status: F Source: [facility] History: Right femur IMN Comparison: 05/19/2023 Findings: [...] by: Florian Sanchez DO 11/14/23 Final result AMBULATORY VISIT SUMMARY Observed: 08/14 10:36 AM Status: F Source: [facility] Ambulatory Visit Summary BREA PARK Katheryn :1940 Visit Date:08/15/2023 Ambulatory Visit Instructions Your Diagnosis Rising PSA following treatment for malignant neoplasm of prostate Urge incontinence BPH with urinary obstruction Your Care Team Attending Physician - Jaguar BATRES MD Primary Care Physician - ALPESH DUNN [...] Follow-Up Appointments Tuesday 11:30 AM EDT Where: [facility] Tuesday 11:30 AM EDT Where: [facility] Tuesday 10:00 AM EDT Where: [facility] 2023 11:30 AM EDT Where: [facility] Tuesday 11:30 AM EDT Where: [facility] 2023 10:45 AM EDT Where: [facility] Tuesday 11:15 AM EDT [facility] You Need to Schedule the Following Appointments Follow Up with JOSE LYNN, Jaguar No, URL When: Comments: 6 mos w/ PSA and Lupron Where: [facility] [address] , [place] [address]- [id number] Medications What How Much When Instructions Unchanged [...] cancer. Where to find more information ? [place] [employer]: www.cancer.org ? National Cancer [place]: www.cancer.gov Contact a health care provider if: [...] have trouble talking or understanding speech. These symptoms may be an emergency. Do not wait to see if the symptoms will go away. Get medical help right away. Call your local emergency services (911 in the [place] Do not drive yourself to the hospital. Summary ? Hormone suppression therapy is a treatment for prostate cancer that can help to slow the growth of cancer cells in the prostate gland. ? Hormone suppression therapy alone will not cure prostate cancer, but it can slow the growth of prostate cancer and may shrink tumors over time. ? Treatment to suppress hormones may include surgery or medicines. ? Side effects such as hot flashes, changes in sexual function or desire, and weakened bones can result from hormone suppression therapy. This information is not intended to replace advice given to you by your health care provider. Make sure you discuss any questions you have with your health care provider. Document Revised: 05/07/2021 Document Reviewed: 05/07/2021 [employer] Patient Education ? 2022 [employer]. UROLOGY OFFICE/CLINIC NOTE Observed: 09/2023 10:31 AM Status: F Source: [facility] Urology Office/Clinic Note Chief Complaint 6m PSA & Lupron Inj HPI Staff Pt here today with his son. 6 mos w/ PSA and Lupron. (auth approved & in chart) Dx: rising PSA following tx for malignant neoplasm of prostate, BPH with obstruction, UUI. *Enzalutamide 160 mg qd, Tamsulosin 0.4mg bid, and increased Tolterodine ER from 4mg to 6mg qd at prior OV. PSA 7/5/24- <0.13 Last Lupron 02/21/23 Denies complaints with stream. Feels empty. Still having some urge incontinence. No difference with increased dosage of Tolterodine. Has been having tenderness to both testicles. Has been going on for a while. History of Present Illness Tests reviewed: reviewed PSA I have reviewed the previous health record information and history for this patient from Dr. Batres. I have reviewed and verified the staff [...] <0.13 08/12/23 - <0.13 TRUS/bx 08/24/16 - [place] 7 (4+3) x 1 core 9% of [...] Follow-up With When Contact Information JOSE LYNN, Jaguar No, [place] [facility] [address], [place] [id number] [phone] Additional Instructions: 6 mos w/ PSA and Lupron Patient Education Hormone Suppression Therapy for Prostate Cancer ISarah Beth, personally scribed for Dr. Batres on 08/15/2023 10:31:52. . Documentation recorded by the scribeSarah Beth, accurately reflects the services(s) I performed and decisions made by me. Authenticated by Dr. Batres on 08/15/2023 10:34:31. Problem List/Past Medical History [...] OPEN REDUCCTION RIGHT FEMUR, rt total knee. Medications alprazolam 0.25 mg Tab, 0.25 mg= 1 tab(s), Oral, Bedtime amlodipine, 5 mg, Oral, Daily enzalutamide, 160 mg, Oral Flomax 0.4 mg Cap, 0.4 mg= 1 cap(s), Oral, BID, 3 refills Mobic, 15 mg, Oral, Daily tolterodine 2 mg Cap-ER, 2 mg= 1 cap(s), Oral, Daily, 3 refills tolterodine 4 mg Cap-ER, 4 mg= 1 cap(s), Oral, Daily, 3 refills Allergies No Known Allergies Social History Alcohol - Denies Alcohol Use, 02/13/2013 Substance Abuse - Denies Substance Abuse, 02/13/2013 Tobacco - Denies Tobacco Use, 02/13/2013 Never (less than 100 in lifetime) Tobacco Use:. Never Smokeless Tobacco Use:., 01/25/2022 Family History Family history is negative Immunizations Vaccine Date Status Comments diphtheria/pertussis, acel/tetanus adult 12/17/2022 Given Early/Late Reason: Nursing Judgment diphtheria/pertussis, acel/tetanus adult 12/23/2020 Given Early/Late Reason: Patient Not Available/Off Unit influenza virus vaccine, inactivated 11/05/2019 Recorded Result Comment: Electronical ly Signed By: Jaguar BATRES MD\.br\Date and Time Signed: 08/15/23 10:34 EDT\.br\Electronically Co-Signed By: Sarah Beth Greene.nini\Date and Time Co-Signed: 08/15/23 10:32 EDT PATIENT EDUCATION Observed: 08/15/2023 10:16 AM Status: F Source: [facility] Patient Education Oncology Hormone Suppression Therapy for [...] cancer. Where to find more information ? [place] [employer]: www.cancer.org ? National Cancer [place]: www.cancer.gov Contact a health care provider if: [...] have trouble talking or understanding speech. These symptoms may be an emergency. Do not wait to see if the symptoms will go away. Get medical help right away. Call your local emergency services (911 in the [place] Do not drive yourself to the hospital. Summary ? Hormone suppression therapy is a treatment for prostate cancer that can help to slow the growth of cancer cells in the prostate gland. ? Hormone suppression therapy alone will not cure prostate cancer, but it can slow the growth of prostate cancer and may shrink tumors over time. ? Treatment to suppress hormones may include surgery or medicines. ? Side effects such as hot flashes, changes in sexual function or desire, and weakened bones can result from hormone suppression therapy. This information is not intended to replace advice given to you by your health care provider. Make sure you discuss any questions you have with your health care provider. Document Revised: 05/07/2021 Document Reviewed: 05/07/2021 [employer] Patient Education ? 2022 [employer]. PT - OTHER Observed: 08/03/2023 6:21 PM Status: F Source: [facility] Spoke with pt by phone. Pt r eports seeing his surgeon yesterday and having a 5 screw removed from his right hip while in the office. Pt states this had loosened at some point and this was the cause of his increased pain. Pt requests to return to PT on 08/09/23 and would like to keep activity light. PT - OTHER Observed: 07/29/2023 3:14 PM Status: F Source: [facility] Pt called to inform PT that he is scheduled to see Dr Douglas next Tuesday for a consult for his continued right hip pain. NONVISIT NOTE - PT Observed: 07/25/2023 11:23 AM Status: F Source: [facility] Pt called and left voicemail to cancel [...] monitor if this helps his pain reports. PT - ASSESSMENTS Observed: 07/20/2023 1:32 PM Status: F Source: [facility] [id number]#1.00TIFF PT - OTHER Observed: 05/24/2023 1:42 PM Status: F Source: [facility] [id number]#1.00TIFF PT - ORDERS Observed: 05/24/2023 6:00 AM Status: F Source: [facility] [id number]#1.00TIFF ALLERGIES DATE TYPE / CODE NAME / CODE REACTION SEVERITY SOURCE 03/02/2024 Drug Allergy/73368807 2(SNOMED CT) No Known Allergies/[id number] (RXNORM) Unknown [facility] Drug Class/476878201( SNOMED CT) NO KNOWN ALLERGIES [facility]/376424071(SNO MED CT) No Known Allergies [facility] ENCOUNTERS ADMIT/DISCHARGE ACCOUNT NUMBER ADMITTING ENCOUNTER CLASS LOCATION SOURCE 05/09/2024/05/10/19 [id number] [facility] [id number] [facility] 03/30/2024/03/30/19 [id number] [facility] 03/06/2024/03/06/19 [id number] [place] 1 [facility] 03/02/2024/03/02/19 [id number] [facility] 01/30/2024/01/30/20 [id number] [place]:[id number] [facility] 01/27/2024/01/27/20 [id number] [facility] 08/15/2023/08/15/19 [id number] [place] 1 [facility] 08/02/2023/08/02/19 24 [id number] Ambulatory Building[facility] 05/24/2023/10/16/19 24 [id number] [facility] 05/19/2023/05/19/19 24 [id number] Ambulatory Building:[facility] PAYERS ENCOUNTER GUARANTOR PAYER SUBSCRIBER SOURCE 05/09/2024 Primary Insurance:MEDICARE A AND BPolicy Number: [id number] Date:9965-03-60Uyed Name:Aparna BEYERESCOBARZNASEMAJB: [id number] PONTIAC SECTIONLINE [address] 05/09/2024 Secondary Insura nce:[employer] SUPPLEMENTPolicy Number: [id number] Date:6604-35-86Myhr Name:Julio Cesar COOKSEMAJB: [id number] PONTI[address] 04/03/2024 [address] [place] [id number] [place] [address]Vos: (HP) Primary Insurance:MedicarePolic y Number: [id number] Date:2024-03-05 Park Campa HeenazantDOB: [id number] [place] [address]Iub: () [facility] 04/03/2024 Secondary Insurance:[facility] Health ClaimsPolicy Number: [id number] Date:2024-03-20 Park BeyerescobarzantDOB: [id number] [place] [address]Ujw: (HP) [facility] 04/03/2024 Tertiary Insuran ce:Self PayPolicy Number: Effective Date:2024-03-20 [facility] Primary Insurance:MEDICARE A AND BPolicy Number: [id number] Date:4591-75-44Eobk Name:Aparna SHEPPARDB: [id number] [place] [address] [facility] 03/30/2024 Secondary Insura nce:[facility] AARP SUPPLEMENTPolicy Number: [id number] Date:4083-50-64Jfqe Name:Julio Cesar SHEPPARDB: [id number] [place] [address] [facility] 03/06/2024 PARK COOKTDOB: [id number] [address] RDTel: ~(3 19 (HP) Primary Insurance:MEDICAREPolic y Number: [id number] Date:7486-25-46[address] [place] [address]QG: PARK Campa [facility]/2024 Secondary Insurance:AARPPolicy Number: [id number] Date:7156-40-05[address], [place] [address]HN: PARK Campa [facility] 03/02/2024 [address] Cookt[address] [place] [address]Tpl: (HP) Primary Insurance:MedicarePolic y Number: [id number] Date:2024-02-09 Park CooktDOB: [id number] [place] [address]Mhv: (HP) [facility] 03/02/2024 Secondary Insurance:Self PayPolicy Number: Effective Date:2024-02-29 [facility]30/2024 PARK NAIKORSTDOB: [address] RDTel: ~~( 41 (HP) Primary Insurance:MEDICAREPolic y Number: [id number] Date:3488-68-55[address] [address]BCSZWJMBNTUBAC, [place] [address]RV: PARK Campa [facility]СВ[facility] 01/30/2024 Secondary Insurance:AARPPolicy Number: [id number] Date:8432-28-78[address]PTFZ[place], [place] [address]NA: PARK Capma [facility] 01/27/2024 Park NaikKhhnvokxnvg[address] [place] [address]Pyx: (HP) Primary Insurance:MedicarePolic y Number: [id number] Date:2024-01-03 Park NaikorstDOB: [id number] [place] [address]Cuu: (HP) [facility] 01/27/2024 Secondary Insurance:Self PayPolicy Number: Effective Date:2024-01-25 [facility]/15/2023 PARK COOKTDOB: [address] RDTel: ~~( 41 (HP) Primary Insurance:MEDICAREPolic y Number: [id number] Date:2972-65-30[address] [address]RPPGNSCBF, [place] [address]OU: PARK GUIDRYRiver[facility] Institute 08/15/2023 Secondary Insurance:AARPPolicy Number: [id number] Date:3038-91-40[address]JDPTXM, [place] [address]TP: PARK [facility]YEROUR [facility]ITALORSTUNK [facility] 08/02/2023 PARK NAIKORSTDOB: [address] [place], [place] [address]Zan: (HP) Primary Insurance:[facility] Number: [id number] Date:2023-01-07[address]LZZEY, [place] [address]BF: PARK NAIKORSTDOB: [id number] [address] [place], [place] [address]Txr: (HP) [facility] 08/02/2023 Secondary Insurance:MEDICAREPolic y Number: [id number] Date:4872-43-21[address] [address]ZFGJLKRJP, [place] [address]DC: PARK COOKTDOB: [id number] [address] [place], [place] [address]Eis: (HP) [facility] 05/24/2023 PARK COOKTDOB: [address] RDTel: ~~( 41 (HP) Primary Insurance:MEDICAREPolic y Number: [id number] Date:5384-68-74[address] [address]LHRJHPZSO, [place] [address]IG: PARK Campa [facility] 05/24/2023 Secondary Insurance:AARPPolicy Number: [id number] Date:9154-98-64[address]ROCMYXG, [place] [address]WY: PARK Campa [facility] 05/19/2023 PARK COOKTDOB: [address] [place], [place] [address]Qpm: (HP) Primary Insurance:MEDICAREPolic y Number: [id number] Date:0260-06-32[address] [address]SGGWJTMIF, [place] [address]TZ: PARK SHEPPARDB: [id number] [place], [place] [address]Aey: () [facility] 05/19/2023 Secondary Insurance:[facility] Number: [id number] Date:2023-01-07[address]ZXRAFPT, [place] [address]UJ: PARK GUIDRYDOB: [id number] [place], [place] [address]Flx: () [facility]
[2024-06-28 14:40] LABS: Basophils Percent Auto 0.4 % (0.2-2.0); Eosinophils Absolute Auto 0.4 10^3/uL (0.0-0.7); Eosinophils Percent Auto 4.1 % (0.9-7.0); Hematocrit 42.9 % (42.0-54.0); Hemoglobin 14.3 g/dL (14.0-18.0); Immature Granulocytes Abs Auto 0.03 10^3/uL (0.00-0.03); Immature Granulocytes Pct Auto 0.3 % (0.0-0.5); Lymphocytes Absolute Auto 1.1 10^3/uL (1.2-3.8); Lymphocytes Percent Auto 12.7 % (20.5-60.0); Mean Corpuscular HGB Conc 33.3 g/dL (29.9-35.2); Mean Corpuscular Hemoglobin 30.7 pg (25.9-34.0); Mean Corpuscular Volume 92.1 fL (80.0-94.0); Monocytes Absolute Auto 0.8 10^3/uL (0.3-0.8); Monocytes Percent Auto 9.4 % (1.7-12.0); Neutrophils Absolute Auto 6.6 10^3/uL (1.4-6.5); Neutrophils Percent Auto 73.1 % (43.0-75.0); Platelet Count 211 10^3/uL (150-450); Red Blood Count 4.66 10^6/uL (4.70-6.10); Red Cell Distribution Width 13.2 % (11.0-15.0)
[2024-06-28 15:09] LABS: Alanine Aminotransferase 13 U/L (16-63); Albumin Globulin Ratio 0.8; Albumin Level 3.2 g/dL (3.4-5.0); Alkaline Phosphatase 131 U/L (46-116); Aspartate Amino Transferase 14 U/L (15-37); BUN Creatinine Ratio 24.7; Bilirubin Total 0.5 mg/dL (0.2-1.0); Calcium 9.1 mg/dL (8.5-10.1); Carbon Dioxide 24.6 mmol/L (21.0-32.0); Chloride 106 mmol/L (98-107); Estimated GFR (African America >60 (>=60 mL/min/1.73m^2); Estimated GFR (Non-African Ame >60 (>=60 mL/min/1.73m^2); Globulin 4.1 g/dL; Glucose 91 mg/dL (74-106); Potassium 4.6 mmol/L (3.5-5.1); Sodium 141 mmol/L (136-145); Total Protein 7.3 g/dL (6.4-8.2)
[2024-06-28 15:32] LABS: Estimated Average Glucose 131 mg/dL; Glycohemoglobin A1C 6.2 % (4.5-6.2)
== END 2024-06-28 14:21 | disposition home or self-care (01) ==
LOC: LAB 14:21
PROVIDERS: PCP Internal Medicine; Visit Provider Internal Medicine
DX: R73.01 Impaired fasting glucose (principal); I10 Essential (primary) hypertension; C61 Malignant neoplasm of prostate; R53.83 Other fatigue
CPT/HCPCS: 36415; 80053; 83036; 85025

== ENCOUNTER 2024-07-16 13:05 | Outpatient (OUT) | payer MEDICARE, SELFPAY ==
[2024-07-16 15:02] LABS: Prostate Specific Antigen Dx <0.13 ng/mL (<=4.00)
--- OUTSIDE RECORDS SUMMARY | 2024-07-22 14:26 | XMS_ITS | CCD ---
Author Organization [facility] Care Team Providers Care Pressroom Foreman Name Role Phone SHAUN, DR HUSAIN Primary Care Unavailable BALL, DR HUSAIN Consulting Unavailable BALL, DR HUSAIN Attending Unavailable BALL, DR HUSAIN Admitting Unavailable Zieber, DR Chung Consulting Unavailable GARCIA, DR SMITH Admitting Unavailable GARCIA, DR SMITH Consulting Unavailable GARCIA, DR SMITH Attending Unavailable BALL, DR HUSAIN Primary Care Unavailable BALL, DR HUSAIN Consulting Unavailable BALL, DR HUSAIN Attending Unavailable BALL, DR HUSAIN Admitting Unavailable BALL, DR HUSAIN Primary Care Unavailable Zieber, DR Chung Consulting Unavailable GARCIA, DR SMITH Admitting Unavailable GARCIA, DR SIMTH Consulting Unavailable GARCIA, DR SMITH Attending Unavailable BALL, DR HUSAIN Primary Care Unavailable BALL, DR HUSAIN Primary Care Unavailable BALL, DR HUSAIN Consulting Unavailable BALL, DR HUSAIN Attending Unavailable BALL, DR HUSAIN Admitting Unavailable Ball, Alpesh Unavailable DO Alpesh Dunn Primary Care Provider [phone] MD Marc Mckinney Admit Provider MD Marc Mckinney Attending Provider LAQUITA Joshi Other Provider Unavailable LAQUITA Samuels Other Provider Unavailable LAQUITA Gonzalez Other Provider Unavailable LAQUITA Dawkins Other Provider Unavailable LAQUITA Rendon Other Provider Unavailable LAQUITA Leyva Other Provider Unavailable MD Yadiel Yanez Other Provider SONAM Gan Other Provider DO Jacquie Cox Other Provider [phone] MD Timi Mercado Other Provider DO Sherwin Cavanaugh Other Provider [phone] MD Daniel Carnes Other Provider MD Flower Hendrickson Other Provider SONAM Bui Other Provider MD Rosamaria Gregory Other Provider MD Ga Barnett Other Provider MD Mario Merino Other Provider MD Kaylie Brower Other Provider DO Dm Seo Other Provider MD Lenin Napier Other Provider MD Julian Maurice Other Provider CRISS Liao-C Mia Florence Other Provider MD Yordan Bowen Other Provider MD Juan Espinoza Other Provider MD Joss Michelle Other Provider MD Nathaniel Luna Other Provider DO Acacia Palacio Other Provider DO Hayder Suazo Other Provider DO Shorty Espino Other Provider SONAM Yin Other Provider DO Fuasto Wyatt Other Provider [phone] MD Yuko Tavera Other Provider SONAM Padilla Other Provider SONAM Brambila Other Provider MD Katina Grimm Other Provider MD Anatoly Ortiz Other Provider SONAM Hope Other Provider DO Vlad Smalls Other Provider LAQUITA Flood Other Provider Unavailable FLORIAN SANCHEZ Referring Unavailable FLORIAN SANCHEZ Referring Unavailable FLORIAN SANCHEZ A Referring Unavailable Alpesh Dunn DO Primary Care Provider [phone] Lars Avelar MD Attending Provider Alpesh Dunn DO Primary Care Provider DONNA SINGH Referring Unavailable DONNA SINGH Attending Unavailable ALPESH DUNN Primary Care Unavailable Asaad, Imad Admitting Unavailable Alpesh Dunn Primary Care Unavailable Asaad, Imad Attending Unavailable Asaad, Imad Admitting Unavailable Alpesh Dunn Primary Care Unavailable Asaad, Imad Attending Unavailable Asaad, Imad Attending Unavailable Asaad, Imad Admitting Unavailable Alpesh Dunn Primary Care Unavailable DONNA SINGH Referring Unavailable TODD CABALLERO Attending Unavailable ALPESH DUNN Primary Care Unavailable JOSE, Luis No Attending Unavailable GARCIA, Luis No Attending Unavailable GARCIA, Luis No Attending Unavailable GARCIA, Luis No Attending Unavailable GARCIA, Luis No Attending Unavailable Medications Current Medications Medication Drug Class(es) Dates Sig (Normalized) Sig (Original) amLODIPine 5 mg oral tablet (20 sources) Dihydropyridine Calcium Channel Aryan Start: 06-29-2017 End: 02-22-2024 amLODIPine (NORVASC) 5 mg tablet 06/29/2017 Active aspirin 81 mg delayed release oral tablet (9 sources) Platelet Aggregation Inhibitor, Nonsteroidal Anti-inflammatory Drug Start: 10-08-2016 End: 02-02-2023 Aspirin (Madi Low Dose Aspirin) 81 mg Tablet,Delayed Release (Dr/Ec) Active 81 MG PO Twice daily February 02, 2023 8:10am take 1 tablet by tyron th every twenty-four hours Aspirin 81 MG 1 tablet Orally Once a day Active Diclofenac (8 sources) Nonsteroidal Anti-inflammatory Drug Start: 01-27-2024 apply 2 g topically three times daily as needed for pain Diclofenac Sodium 1 % Gel Active 2 GM TOPICAL Three times daily as needed for pain January 27, 2024 12:00am Start: 02-02-2023 End: 01-27-2024 apply 2 g topically three times daily Diclofenac Sodium 1 % Gel Discontinued 2 GM TOPICAL Three times daily 03 08February 02, 2023 12:00am January 27, 2024 11:26am Start: 02-02-2023 apply 2 g topically three times daily Diclofenac Sodium Active 2 GM TOPICAL Three times daily 03 08February 02, 2023 12:00am Diclofenac Sodiu m 1 % 2 g topical Externally TID Active enzalutamide 40 mg oral tablet (15 sources) Androgen Receptor Inhibitor Start: 06-22-2023 take 1 tablet by mouth four times daily Enzalutamide 40 mg tablet Active 40 MG PO Four times daily June 21, 2023 11:00pm Start: 01-19-2023 End: 06-22-2023 take 1 capsule by mouth once daily Enzalutamide (Xtandi) 40 mg Capsule Discontinued 160 MG PO Daily with supper January 19, 2023 12:00am June 22, 2023 8:46am take 4 tablets by [facility] once daily enzalutamide (XTANDI) 40 mg tablet Take 160 mg by mouth once daily. Active meloxicam 15 mg oral tablet (20 sources) Nonsteroidal Anti-inflammatory Drug Start: 03-08-2024 take 1 tablet by mouth once daily Meloxicam 15 mg tablet Active 0 .ROUTE .COMPLEX 90 March 08, 2024 7:06am Take 1 tablet by mouth once daily Start: 09-15-2016 End: 03-08-2024 take 1 tablet by mouth once daily Meloxicam 15 mg tablet Discontinued 15 MG PO Daily January 27, 2024 12:00am March 08, 2024 7:06am tamsulosin hydrochloride 0.4 mg oral capsule (20 sources) alpha-Adrenergic Aryan Start: 01-19-2023 End: 02-02-2023 take 1 capsule by mouth twice daily Tamsulosin (Flomax) 0.4 mg Capsule Active 0.4 MG PO Twice daily February 02, 2023 8:10am take 1 capsule by [facility] every twenty-four hours Tamsulosin HCl 0.4 MG 1 capsule Orally Once a day Active 24 hr tolterodine tartrate 4 mg extended release oral capsule (16 sources) Cholinergic Muscarinic Antagonist Start: 01-19-2023 End: 02-02-2023 take 1 capsule by mouth once daily Tolterodine 4 mg Capsule,Extended Release 24hr Active 4 MG PO Daily February 02, 2023 8:10am tolterodine (DET ROL) 2 mg tablet 4 mg. Active Completed/Discontinued Medications Medication Drug Class(es) Dates Sig (Normalized) Sig (Original) acetaminophen 500 mg oral tablet (6 sources) Start: 02-02-2023 End: 06-24-2023 take 1 tablet by mouth every four hours as needed for pain Acetaminophen 500 mg Tablet Discontinued 500 MG PO Q4H as needed for Pain 0 February 02, 2023 12:00am June 24, 2023 8:16am take 1 capsule by mo uth every four hours as needed for pain Acetaminophen 500 MG 1 capsule as needed Orally every 4 hours for pain Active ALPRAZolam 0.25 mg oral tablet (20 sources) Benzodiazepine Start: 02-18-2023 End: 01-09-2024 take 0.5 tablet by mouth once daily at dinner, then take 1 tablet by mouth once at bedtime Alprazolam 0.25 mg tablet Discontinued 0 PO Daily 135 90 June 23, 2023 11:00pm January 09, 2024 5:09pm 1/2 PO w/ evening meal and 1 PO q HS Start: 07-27-2022 take 0.5 tablet by m outh once daily at mealtime, then take 1 tablet by mouth once daily at bedtime ALPRAZolam 0.25 MG TAKE 1/2 TABLET BY MOUTH EVERY EVENING WITH MEAL AND TAKE ONE TABLET BY MOUTH EVERY NIGHT AT BEDTIME Jul, Active Start: 10-08-2016 End: 01-19-2023 take 1 tablet by mouth once daily Alprazolam 0.25 mg Tablet Discontinued 0.25 MG PO Daily October 07, 2016 11:00pm January 19, 2023 5:00pm Start: 08-24-2016 ALPRAZolam (XA NAX) 0.25 mg tablet 5 08/24/2016 Active ciprofloxacin 500 mg oral tablet (2 sources) Quinolone Antimicrobial Start: 12-19-2023 End: 01-27-2024 take 1 tablet by mouth twice daily Ciprofloxacin Hcl 500 mg tablet Discontinued 500 MG PO Twice daily 14 December 19, 2023 12:00am January 27, 2024 11:25am doxazosin 2 mg oral tablet (3 sources) alpha-Adrenergic Aryan Start: 10-08-2016 End: 01-19-2023 take 1 tablet by mouth once daily Doxazosin 2 mg Tablet Discontinued 2 MG PO daily October 07, 2016 11:00pm January 19, 2023 5:01pm 0.3 ml enoxaparin sodium 100 mg/ml prefilled syringe (6 sources) Low Molecular Weight Heparin Start: 06-24-2023 End: 06-24-2023 Enoxaparin (Lovenox) 30 mg/0.3 mL syringe Discontinued 30 MG SUBCUT Daily June 23, 2023 11:00pm June 24, 2023 8:23am Start: 01-19-2023 End: 02-02-2023 inject 30 mg by subcutaneous injection every twelve hours Enoxaparin 30 mg/0.3 mL Syringe Discontinued 30 MG SUBCUT Q12H January 19, 2023 12:00am February 02, 2023 8:11am ergocalciferol 1.25 mg oral capsule (9 sources) Provitamin D2 Compound Start: 01-19-2023 End: 01-27-2024 take 1 capsule by mouth every week Ergocalciferol (Vitamin D2) 1,250 mcg (50,000 unit) Capsule Discontinued 1250 MCG PO every week 07 06February 02, 2023 8:10am January 27, 2024 11:26am ferrous sulfate 324 mg delayed release oral tablet (6 sources) Start: 02-02-2023 End: 06-24-2023 take 1 tablet by mouth once daily Ferrous Sulfate 324 mg (65 mg iron) Tablet,Delayed Release (Dr/Ec) Discontinued 324 MG PO Daily February 02, 2023 12:00am June 24, 2023 8:17am take 1 tablet by mouth three vivienne es weekly Ferrous Sulfate 325 (65 Fe) MG 1 tablet Orally Three times a Week Active ibuprofen 400 mg oral tablet (2 sources) Nonsteroidal Anti-inflammatory Drug Start: 06-24-2023 End: 01-27-2024 take 1 tablet by mouth every six hours Ibuprofen 400 mg tablet Discontinued 400 MG PO Every 6 hours June 23, 2023 11:00pm January 27, 2024 11:26am lidocaine 0.04 mg/mg medicated patch (9 sources) Antiarrhythmic, Amide Local Anesthetic Start: 01-19-2023 End: 06-24-2023 apply 1 dose topically once daily Lidocaine 4 % Adhesive Patch,Medicated Discontinued 1 PATCH TOPICAL Daily February 02, 2023 8:10am June 24, 2023 8:18am melatonin 5 mg oral tablet (6 sources) Start: 02-02-2023 End: 06-24-2023 take 1 tablet by mouth once daily at bedtime as needed for sleep Melatonin 5 mg Tablet Discontinued 5 MG PO Daily at bedtime as needed for Sleep February 02, 2023 12:00am June 24, 2023 8:18am metFORMIN hydrochloride 850 mg oral tablet (4 sources) Biguanide Start: 02-02-2023 End: 06-22-2023 take 1 tablet by mouth once daily Metformin 850 mg Tablet Discontinued 850 MG PO Daily with supper February 02, 2023 12:00am June 22, 2023 8:46am Multivitamin preparation (1 source) Start: 10-08-2016 End: 01-19-2023 take 1 tablet by mouth once daily Multivitamin Discontinued 1 TAB PO daily October 07, 2016 11:00pm January 19, 2023 5:01pm Multivitamin Tablet,Chewable (2 sources) Start: 10-08-2016 End: 01-19-2023 take 1 tablet by mouth once daily Multivitamin Tablet,Chewable Discontinued 1 TAB PO daily October 07, 2016 11:00pm January 19, 2023 5:01pm ondansetron 4 mg disintegrating oral tablet (4 sources) Serotonin-3 Receptor Antagonist Start: 02-02-2023 End: 06-22-2023 take 1 tablet by mouth every eight hours as needed for nausea and vomiting Ondansetron 4 mg Tablet,Disintegr ating Discontinued 4 MG PO Every 8 hours as needed for Nausea And Vomiting February 02, 2023 12:00am June 22, 2023 8:46am take 1 tablet by tyron th every twenty-four hours Ondansetron 4 MG 1 tablet on the tongue and allow to dissolve Orally Once a day Active oxyCODONE hydrochloride 5 mg oral tablet (4 sources) Opioid Agonist Start: 02-02-2023 End: 06-22-2023 take 1 tablet by mouth every eight hours as needed for pain Oxycodone 5 mg Tablet Discontinued 5 MG PO Every 8 hours as needed for Pain (Scale Score 7-10) 21 06February 02, 2023 June 22, 2023 8:46am Sod Picosulf-Mag Ox-Citric Ac (2 sources) Start: 01-12-2024 End: 01-27-2024 Sod Picosulf-Mag Ox-Citric Ac (Clenpiq) 10 mg-3.5 gram- 12 gram/175 mL solution Discontinued 175 ML PO .COMPLEX 350 1 January 12, 2024 12:00am January 27, 2024 11:26am Follow instructions given by office Problems Active Problems Problem Classification Problem Date Documented Da te Episodic/Chronic Administrative/social admission (4 sources) Other reduced mobility; Translations: [Impaired mobility and activities of daily living] 01-20-2023 Episodic Anal and rectal conditions (5 sources) Lesion of rectum; Translations: [Disease of anus and rectum, unspecified] Onset: 03-02-2024 03-22-2024 Episodic Anxiety disorders (16 sources) Generalized anxiety disorder; Translations: [Generalized anxiety disorder] Chronic Cancer of prostate (20 sources) Carcinoma of prostate; Translations: [Malignant neoplasm of prostate] Onset: 09-29-2016 Chronic Comment on above: Dx: 2017 s/p radiati on and ADT Deficiency and other anemia (1 source) Anemia; Translations: [Anemia, unspecified] 01-28-2023 Episodic Deficiency and other anemia (1 source) Anemia, unspecified; Translations: [Anemia, unspecified] 02-02-2023 Episodic Diabetes mellitus without complication (2 sources) Diabetes mellitus; Translations: [Type 2 diabetes mellitus without complications] 01-28-2023 Chronic Diabetes mellitus without complication (3 sources) Impaired fasting glycemia; Translations: [Impaired fasting glucose] 06-22-2023 Episodic Esophageal disorders (10 sources) Gastro-esophageal reflux disease with esophagitis; Translations: [Gastroesophageal reflux disease with esophagitis without hemorrhage] 06-22-2023 Chronic Essential hypertension (20 sources) Essential hypertension; Translations: [Essential (primary) hypertension] Chronic Genitourinary symptoms and ill-defined conditions (14 sources) Urgency of urination; Translations: [Delay when starting to pass urine] Onset: 01-24-2022 Episodic Hyperplasia of prostate (16 sources) Benign prostatic hyperplasia with lower urinary tract symptoms; Translations: [Benign prostatic hyperplasia] Onset: 01-24-2022 Chronic Hypertension with complications and secondary hypertension (1 source) Hypertensive heart disease with heart failure; Translations: [HTN HEART DISEASE W/HEART FAIL] Onset: 07-23-2021 Chronic Malaise and fatigue (3 sources) Other fatigue; Translations: [Fatigue] Episodic Open wounds of head; neck; and trunk (1 source) Laceration without foreign body of scalp, subsequent encounter Episodic Osteoarthritis (10 sources) Arthritis; Translations: [Unspecified osteoarthritis, unspecified site] Chronic Other acquired deformities (10 sources) Acquired unequal leg length; Translations: [Unequal limb length (acquired), unspecified site] Episodic Other aftercare (2 sources) Other senior living (current) drug therapy; Translations: [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] Onset: 07-23-2021 Episodic Other and unspecified benign neoplasm (10 sources) Tubular adenoma of colon; Translations: [Benign neoplasm of colon, unspecified] Episodic Other and unspecified benign neoplasm (2 sources) Polyp of colon; Translations: [Polyp of colon] 02-09-2024 Episodic Comment on above: Tubulovillous adenom a w/o dysplasia - 01/2024 Other bone disease and musculoskeletal deformities (10 sources) Idiopathic aseptic necrosis of right ankle; 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 Other circulatory disease (1 source) Other specified symptoms and signs involving the circulatory and respiratory systems Episodic Other connective tissue disease (10 sources) Pain in limb; Translations: [Pain in right lower leg] Episodic Other diseases of bladder and urethra (3 sources) Urethrorectal fistula; 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 Other diseases of bladder and urethra (1 source) Urethral fistula; 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] Onset: 05-09-2024 Chronic Other fractures (1 source) Multiple fractures of ribs, right side, subsequent encounter for fracture with routine healing Episodic Other gastrointestinal disorders (10 sources) Radiation enterocolitis; 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] Episodic Other gastrointestinal disorders (2 sources) Diarrhea; Translations: [Diarrhea, unspecified] 12-19-2023 Episodic Other gastrointestinal disorders (1 source) Diarrhea, unspecified; Translations: [Diarrhea] 12-19-2023 Episodic Other injuries and conditions due to external causes (2 sources) Radiation sickness, unspecified, sequela; Translations: [Late effect of radiation] Onset: 05-09-2024 05-09-2024 Episodic Other lower respiratory disease (1 source) Other forms of dyspnea Episodic Other nervous system disorders (1 source) Dysarthria and anarthria Episodic Other nervous system disorders (1 source) Hip pain; Translations: [Other acute postprocedural pain] 01-20-2023 Episodic Other nervous system disorders (1 source) Other acute postprocedural pain; Translations: [Pain in joint, pelvic region and thigh] 02-02-2023 Episodic Other nutritional; endocrine; and metabolic disorders [...] mass index (BMI) 31.0-31.9, adult Chronic Other nutritional; endocrine; and metabolic disorders (2 sources) Overweight; Translations: [Overweight] 06-24-2023 Episodic Other nutritional; endocrine; and metabolic disorders (1 source) Weight loss; Translations: [Abnormal weight loss] 02-09-2024 Episodic Comment on above: EGD: normal - ,Colonoscopy: polypectomy - chest: normal - abd/pelvis: normal - 12/2023, 01/2024 Other nutritional; endocrine; and metabolic disorders (1 source) Weight decreased; Translations: [Abnormal weight loss] 02-09-2024 Episodic Comment on above: EGD: normal - ,Colonoscopy: polypectomy - chest: normal - T abd/pelvis: normal - 12/2023, 01/2024 Other screening for suspected conditions (not mental disorders or infectious disease) (3 sources) Imaging result abnormal; Translations: [Abnormal findings on diagnostic imaging of other specified body structures] 10-08-2016 Chronic Other screening for suspected conditions (not mental disorders or infectious disease) (4 sources) Rising PSA following treatment for malignant neoplasm of prostate; Translations: [RISING PSA FLW TX MALG MARY PROSTATE] Onset: 01-20-2022 Episodic Other skin disorders (1 source) Localized swelling, mass and lump, neck Episodic Skin and subcutaneous tissue infections (10 sources) Cellulitis of right lower limb; Translations: [Cellulitis of right lower limb] Episodic Spondylosis; intervertebral disc disorders; other back problems (17 sources) Lumbar spondylosis; Translations: [Spondylosis without myelopathy or radiculopathy, lumbar region] Chronic Superficial injury; contusion (5 sources) Contusion of nose, subsequent encounter; Translations: [Contusion of rib] Episodic Past or Other Problems Problem Classification Problem Date Documented Da te Episodic/Chronic Cancer of prostate (8 sources) Personal history of malignant neoplasm of prostate; Translations: [History of malignant neoplasm of prostate] Onset: 08-17-2017 08-17-2017 Episodic Esophageal disorders (4 sources) Esophageal disorders; Translations: [Gastroesophageal reflux disease with esophagitis without hemorrhage] Fracture of lower limb (6 sources) Fracture of femur; Translations: [Unspecified fracture of right femur, initial encounter for closed fracture] Onset: 02-07-2022 01-20-2023 Episodic Other connective tissue disease (4 sources) Pain in right lower leg; Translations: [PAIN IN RIGHT LOWER LEG] Onset: 08-11-2021 Episodic Other connective tissue disease (1 source) Other specified soft tissue disorders; Translations: [OTHER SPEC SOFT TISSUE DISORDERS] Onset: 08-24-2021 Episodic Other lower respiratory disease (4 sources) Chronic cough; Translations: [CHRONIC COUGH] Onset: 05-20-2021 Episodic Other nutritional; endocrine; and metabolic disorders (2 sources) Abnormal weight loss; Translations: [Loss of weight] Onset: 01-27-2024 12-19-2023 Episodic Results Test Name Value Interpretation Reference Range Facility Ambulatory Visit Summaryon 0 07-20-2024 Ambulatory Visit Summary Ambulatory Visit Summary [facility] :1940 Visit Date:07/20/2024 Ambulatory Visit Instructions Your Diagnosis Rising PSA following treatment for malignant neoplasm of prostate Prostate cancer BPH with urinary obstruction OAB (overactive bladder) Pneumaturia Colovesical fistula Your Care Team Attending Physician - JOSE LYNN, Luis No Primary Care Physician - ALPESH DUNN DO This Is Your Medications List enzalutamide (enzalutamide 40 mg oral capsule) tamsulosin [...] FEMUR, rt total knee. Discharge Vitals Temperature (Temporal Artery) 37 ???C Heart Rate (Peripheral) 65 Respiratory Rate 16 Blood Pressure 125/76 Height 170 cm Height 67 in What to do next Scheduled Follow-Up Appointments Tuesday 10:15 AM EST With: Luis GARCIA MD Where: [facility] [address] [place] [address]- You Need to Schedule the Following Appointments Follow Up with Luis GARCIA MD, URL When: Where: [address] [place] [id number]- Medications What How Much When Instructions Unchanged enzalutamide (enzalutamide 40 mg oral capsule) [...] Contact prescribing physician if questions or concerns Allergies No Known Allergies Problems Ongoing - [...] choosing us for your care. Education Materials Prostate Cancer The prostate is a small gland that produces fluid that makes up semen (seminal fluid). It is located below the bladder in men, in front of the rectum. Prostate cancer is the abnormal growth of cells in the prostate gland. What are the causes? The exact cause of this condition is not known. What increases the risk? You are more likely to develop this condition if: ??? You are 65 years of age or older. ??? You have a family history of prostate cancer. ??? You have a family history of breast and ovarian cancer. ??? You have genes that are passed from parent to child (inherited), such as BRCA1 and BRCA2. ??? You have Napier syndrome. men and men of descent are diagnosed with prostate cancer at higher rates than other men. The reasons for this are not well understood and are likely due to a combination of genetic and environmental factors. What are the signs or symptoms? Symptoms of this condition include: ??? Problems with urination. This may include: ? A weak or interrupted flow of urine. ? Trouble starting or stopping urination. ? Trouble emptying the bladder all the way. ? The need to urinate more often, especially at night. ??? Blood in urine or semen. ??? Persistent pain or discomfort in the lower back, lower abdomen, or hips. ??? Trouble getting an erection. ??? (more content not included)... Normal [facility] Urology Office/Clinic Noteon 07-20-2024 Urology Office/Clinic Note Urology Office/Clinic Note Chief Complaint 6 month with PSA and Lupron HPI Staff 84 year old male patient here for 6 month follow up with PSA and Lupron. Previous dx: rising PSA following treatment for malignant neoplasm of prostate, prostate cancer (brachytherapy 12/23/16), urge incontinence, BPH with urinary obstruction, pneumaturia, OAB, Colovesical fistula . S/P cysto 03/06/24 enzalutamide 160mg qd, tolterodine ER 4mg qd, tamsulosin 0.4mg bid Current PSA 07/16/24- <0.13 Previous PSA 01/23/24- < 0.1 IPSS score of 17 today. Incomplete emptying, frequency, intermittency, weak stream and straining less than half the time. Urgency about half the time. Nocturia x4. History of Present Illness Tests reviewed: reviewed UA and PSA. I have reviewed the previous health record information and history for this patient from Dr. Garcia I have reviewed and verified the staff HPI to be accurate for this encounter. There have been no associated fever, chills, flank pain, or blood in the urine. Denies any urinary infections since last encounter. Review of Systems PHQ Score Initial [...] Physical Exam Vitals & Measurements T: 37 ???C(Temporal Artery) HR: 65(Peripheral) RR: 16 BP: 125/76 HT: 67 in HT: 170 cm General Appearance: alert, no distress, well nourished, well developed male. Assessment/Plan Pt accompanied by son today. 1. Rising PSA following treatment for malignant neoplasm of prostate (R97.21: Rising PSA following treatment for malignant neoplasm of prostate) PSA 01/19/21 - 0.10 07/22/21 - 3.30 01/20/22 - 0.52 07/21/22 - 1.07 01/12/23 - <0.13 08/12/23 - <0.13 01/23/24 - <0.1 07/16/24 - <0.13 TRUS/bx 08/24/16 - [place] 7 (4+3) x 1 core 9% of core involvement. [place] 7 (3+4) x 1 core, 35% of core involvement. iPSA 35.73 & 10%. EBRT 2017. Brachytherapy 12/23/16. First Lupron inj 07/21/20. Most recent Lupron 01/30/24. Taking Enzalutamide 160 mg (4 tabs of 40 mg) qd, started 07/26/22. PSA remains undetectable as expected. Reports after his last injection he had pain near his incision site for 5 months. Pt states he usually has pain following injections but not as bad. Severe hot flashes. Provided the option of declining Lupron today. Pt is agreeable. Would proceed with Lupron at next visit if PSA would decide to rise. -Skip Lupron today -PSA and possible Lupron in 6 mos 2. Prostate cancer (C61: Malignant neoplasm of prostate) See #4. 3. BPH with urinary obstruction (N40.1: Benign prostatic hyperplasia with lower urinary tract symptoms) S/p cysto 03/06/24 - the prostatic urethra is open but tons of debris seen coming from the bladder out into the prostatic urethra. Taking Flomax 0.4 mg bid. IPSS 17. 4. OAB (overactive bladder) (N32.81: Overactive bladder) Taking Tolterodine 4 mg ER qd. Still gets up during the night to void. 5. Pneumaturia (R39.89: Other symptoms and signs involving the genitourinary system) CT AP w con 12/24/23 TB - No suspicious findings. CT AP w con 01/27/24 [facility] [place] Unremarkable bladder. Prostate seeds present. Irregular circumferential wall thickening of the distal sigmoid colon and rectum. Mild adjacent fat stranding. No perirectal or pericolonic adenopathy. No pelvic sidewall adenopathy. S/p cysto 03/06/24 - Multiple yellow large globules on the floor that were probably feculent material(doesn't seem like true bladder stones). Debris throughout the whole bladder. No tumors and no discrete site suggesting a fistula. Trabeculated: None (0) Pt states he still has bubbles in his urine along with pneumaturia. 6. 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 See above for cysto findings. Reports he has seen the appropriate provider and declined surgery. Follow-up With When Contact Information Luis GARCIA MD, URL [address] [place] [address]- Additional Instructions: 6 mos w/ PSA and possible Lupron Patient Education Prostate Cancer I, Janet Jasso, personally scribed for Dr. Garcia on 07/20/2024 10:32:42. . Documentation recorded by the scribeJanet, accurately reflects the services(s) I performed and decisions made by me. Authenticated by Dr. Garcia on 07/20/2024 10:40:39. Problem List/Past Medical History Ongoing Arthritis BPH with urinary obstruction Colovesical fistula Insomnia Kn (more content not included)... Normal [facility] Comment on above: Result Comment: Elec tronically Signed By: Luis GARCIA MD\.br\Date and Time Signed: 07/20/24 10:40 EDT\.br\Electronically Co-Signed By: Janet Jasso\.br\Date and Time Co-Signed: 07/20/24 10:32 EDT CNOVon 05-09-2024 CNOV Office Visit (URFMOB ) -------- PARK GUIDRY ([id number]) 1940 M Date Time Provider Department 05/09/24 3:30 PM TODD CABALLERO URFMOB During your visit today, we recorded the following information about you: Blood pressure 146/82 Nikki Wallace RN 05/09/2024 9:00 PM Signed Post void residual done on patient with 0 cc residual volume remaining. notified. LAQUITA Ramirez Molly, MD 05/09/2024 9:00 PM Signed [facility] UROLOGY NEW PATIENT CLINIC NOTE SERVICE DATE: 05/09/2024 NAME: Park Guidry REFERRED BY: Donna Singh [address] [place] [address] [place] [id number] Consultation requested by Dr. 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 - enzalutamide (XTANDI) 40 mg tablet Take 160 mg by mouth once daily. - amLODIPine (NORVASC) 5 mg tabl (more content not included)... Normal [facility] Creatinine (Bld) [Mass/Vol]O rdered By: Lars Avelar on 04-03-2024 Creatinine [Mass/Vol] Whole blood creati nine measurement 0.6-1.3 [facility] Comment on above: ER/ESD physician is notified/shown all ISTAT results.Critical values may be confirmed by laboratory testing ifdeemed necessary by ER attending doctor. ISTAT XRay CREon 04-03-2024 Creatinine [Mass/Vol] 0.9 mg/dL Normal 0.6-1.3 [facility] Comment on above: Result Comment: ER/E [place] physician is notified/shown all ISTAT results. Critical values may be confirmed by laboratory testing if deemed necessary by ER attending doctor. Performed By: #### I SCRE #### [address] ISTAT GFR >60.0 Normal [facility] Comment on above: Result Comment: PERF ORMED BY: [place] [address] PATHOLOGIST NETWORK COMMUNICATIONS ENGINEER RADHA ZHENG M.D. Performed By: #### I SCRE #### [address] MR pelvis wo/w conon 025 MR pelvis wo/w con [facility] [place] [address] MRI Report Signed Patient: Park Guidry MR#: [id number] : 1940 Acct:[id number] Age/Sex: 83 / M ADM Date: 04/03/24 Loc: MR Room: Type: [facility] Attending Dr: Lars Avelar MD Copies to: [...] Kerns Jr., D.OMario04/03/2024 10:58 AM Dictation Location: [place] [address] Transcribed By: [facility] 04/03/24 1058 Dictated By: Jackson Kerns Jr, DO 04/03/24 1046 Signed By: 04/03/24 1058 Normal [facility] Magnetic resonance imaging r eportOrdered By: Jackson Kerns on 04-03-2024 Study report [facility] [place] [address] MRI Report Signed Patient: Park Guidry MR#: [id number] : 1940 Acct:[id number] Age/Sex: 83 / M ADM Date: 5 Loc: MR Room: Type: [facility] Attending Dr: Lars Avelar MD Copies to: Lars Avelar MD~ Ordering Provider: Lars Avelar MD Date of Service: 04/03/24 MR/MR pelvis wo/w con: K62.6 - Ulcer of anus and rectum MRI OF THE PELVIS WITH AND WITHOUT CONTRAST: CLINICAL HISTORY: Difficulty urinating irregular screening. History of prostateand colon cancer. COMPARISON: None TECHNIQUE: Multisequence, multiplanar imaging of the pelvis was obtained before and after the use of IV contrast. FINDINGS: There appears to be a large ulceration involving the anterior wall of the rectumapproximately 3 cm from the anal verge with [...] is seen from the patient's right hip hardwareand left JANETT which limits evaluation. No suspicious [...] AIR SEEN WITHIN THE URINARY BLADDER LUMEN SUSPICIOUSFOR UNDERLYING FISTULA. CORRELATION WITH COLONOSCOPY FINDINGS IS RECOMMENDED. FINDING MAY BE POSTTREATMENT IN NATURE GIVEN THE RADIATION SEEDS WITHIN THE PROSTATE GLAND. Impression dictated by: Jackson Kerns Jr., RamosOMario04/03/2024 10:58 AM Dictation Location: [place] [address] Transcribed By: [facility] 04/03/24 1058 Dictated By: Jackson Kerns Jr, DO 04/03/24 1046 Signed By: 04/03/24 1058 [facility] No Panel InformationOrdered By: Lars Avelar on 04-03-2024 Bedside Estimated GFR (eGFR) > 60.0 [facility] CNOVon 03-30-2024 CNOV Office Visit ([facility] ) -------- GRAVENHORST,PARK ([id number]) 1940 M Date Time Provider Department 03/30/24 2:40 PM DONNA SINGH [facility] During your visit today, we recorded the [...] for internal providers or letter via the [employer] for external providers. Chief Complaint: ulcer of anus and rectum History of Present Illness: Park Guidry is a 83 year old male presents today for evaluation of rectal ulcer. MRI scheduled for 04/03/24 at [facility] CAP 01/27/24 - [facility] Scan on 03/05/2024 3:53 PM by Celia Garcia: [facility] CT Chest,Abdomen and Pelvis 01/27/24 Impression: Circumferential irregular wall thickening of the distal sigmoid colon and rectum likely corresponding with patient's history of rectal ulceration and suspicion for malignancy. No adjacent enlarged lymph nodes. No distal metastatic disease of the chest abdomen or pelvis Sigmoidoscopy 03/02/24 - Dr. Avelar Scan on 03/05/2024 3:50 PM by Celia Garcia: [facility] Sigmoidoscopy Notes 03/02/24 Rectum: Excavated ulcerated lesion in the rectum (4 cm), biopsied using jumbo biopsy Pathology 03/02/24 Scan on 03/22/2024 4:01 PM by Celia Garcia: [facility]- Pathology Report 03/02/24 - Ulcer with reactive stromal atypia, negative for carcinoma Colonoscopy 01/27/24 - Dr. Avelar Scan on 03/05/2024 3:51 PM by Celia Garcia: [facility] EGD AND Colonoscopy Report 01/27/24 Ascending colon: A 2 cm polyp removed piecemeal using hot snare clip was placed at hte polypectomy site to prevent post polypectomy bleeding. [...] exam reveals anterior divot consistent with ulcer Privacy Compliance Manager present: Yes, Xmiena Sheets Anoscopy could not be performed due to patient discomfort The sensitive examination was discussed with the Patient or Patient's Authorized Foam Rubber Fabricator. As applicable, any other physician, advance practice provider, medical student, or other health professional student that will be observing or involved in the sensitive examination for educational or training purposes was discussed with the Patient or Authorized Foam Rubber Fabricator. The Patient or Authorized Foam Rubber Fabricator has agreed to proceed with the sensitive [...] his rectourethral fistula. He certainly does not wa (more content not included)... Normal [facility] -------- PARK GUIDRY ([id number]) 1940 M Date Time Provider Department 03/22/24 DONNA SINGH [facility] During your visit today, we recorded the following information about you: Ilan Padilla RN 03/22/2024 10:47 AM Signed Called [facility] Application Engineer, Lamar Matthew, and told her I was [...] Encounter Status:Closed by ILAN PADILLA on [facility]24 [facility] -------- PARK GUIDRY ([id number]) 1940 M Date Time Provider Department 03/09/24 DONNA SINGH [facility] During your visit today, we recorded the [...] Encounter Status:Closed by CELIA GARCIA on 03/09/24 [facility] CNPN Telephone ([facility]) -------- PARK GUIDRY ([id number]) 1940 M Date Time Provider Department 03/09/24 DONNA SINGH [facility] During your visit today, we recorded the [...] Encounter Status:Closed by CELIA GARCIA on 03/09/24 [facility] 03-08-2024 CNPN Telephone ([facility]) -------- PARK GUIDRY ([id number]) 1940 M Date Time Provider Department 03/08/24 DONNA SINGH [facility] During your visit today, we recorded the [...] Encounter Status:Closed by CELIA GARCIA on 03/08/24 Normal [facility] SURGICAL PATHOLOGY REFERENCE LAB CONSULTon 03-07-2024 CASE REPORT Normal [facility] Comment on above: Order Comment: Speci men Type: FORMALIN-FIXED PARAFFIN-EMBEDDED TISSUE SPECIMEN Ordering Facility: [facility] Address: [address] [place], [place] [address] [place] [id number] Result Comment: Surg ical Pathology Report Case: [id number] Authorizing Provider: Leyda Heaton MD Collected: 03/07/2024 02:35 PM Ordering Location: [facility] Received: 03/07/2024 02:34 PM [facility] Pathologist: Josephine Fritz MD Specimen: Block(s) and/or Slide(s), 3 SLIDES & 1 BLOCK ([id number]: A1) Performed By: #### L [id number] #### [facility] CLIA [id number] [address] [place] [address] [place] CLINICAL HISTORY CONSULT REQUESTED Normal [facility] Comment on above: Order Comment: Speci men Type: FORMALIN-FIXED PARAFFIN-EMBEDDED TISSUE SPECIMEN Ordering Facility: [facility] Address: [address] [place], [place] [address] [address] Performed By: #### L [id number] #### [facility] CLIA [id number] [address] [place] [address] [place] DIAGNOSIS COMMENT Normal [facility] Comment on above: Order Comment: Speci men Type: FORMALIN-FIXED PARAFFIN-EMBEDDED TISSUE SPECIMEN Ordering Facility: [facility] Address: [address] [place], [place] [address] [phone] Result Comment: Than k you for allowing us the opportunity to review this [...] to contact the GI consultation service at [phone] with questions or if additional follow-up information becomes available. Performed By: #### L [id number] #### [facility] CLIA [id number] [address] [place] [address] FINAL DIAGNOSIS Normal [facility] Comment on above: Order Comment: Speci men Type: FORMALIN-FIXED PARAFFIN-EMBEDDED TISSUE SPECIMEN Ordering Facility: [facility] Address: [address] [place] [address] Result Comment: Rect al lesion, biopsy (A): - Ulcer with reactive stromal atypia, negative for carcinoma. Performed By: #### L [id number] #### [facility] CLIA [id number] [address] [place] [address] FINAL PERFORMING LAB Normal [facility] Comment on above: Order Comment: Speci men Type: FORMALIN-FIXED PARAFFIN-EMBEDDED TISSUE SPECIMEN Ordering Facility: [facility] Address: [address] [place] [address] [place] [address] Result Comment: Diag nostic interpretation performed at: [facility], [address] [place] [address] CLIA# [id number] Welt Butter Hand: Prateek Nick MD Performed By: #### L [id number] #### [facility] CLIA [id number] [address] [place] [address] OF [facility] Ambulatory Visit Summaryon 0 03-06-2024 Ambulatory Visit Summary Ambulatory Visit Summary PARK GUIDRY :1940 Visit Date:03/06/2024 Ambulatory Visit Instructions Your Diagnosis Pneumaturia Colovesical fistula Rising PSA following treatment for malignant neoplasm of prostate Prostate cancer OAB (overactive bladder) BPH with urinary obstruction Your Care Team Attending Physician - Luis [...] Follow-Up Appointments Tuesday 9:45 AM EDT With: Luis GARCIA MD Where: [facility] [address] [place] [address]- You Need to Schedule the Following Appointments Follow Up with Luis GARCIA MD, URL When: Where: [facility] [address], [place] [address]- Medications What How Much When Instructions Unchanged [...] notice symptoms. Finding cancer early improves the (more content not included)... Normal [facility] CNPZenaida 03-06-2024 CNPN Telephone ([facility]) -------- PARK GUIDRY ([id number]) 1940 M Date Time Provider Department 03/06/24 DONNA SINGH [facility] During your visit today, we recorded the [...] Encounter Status:Closed by CELIA GARCIA on 03/06/24 [facility] Urology Office/Clinic Noteon 03-06-2024 Urology Office/Clinic Note Urology Office/Clinic Note Chief Complaint Cysto HPI [...] suspicious findings. CT AP w con 01/27/24 FR - Unremarkable bladder. Prostate seeds present. Irregular circumferential wall thickening of the distal sigmoid colon and rectum. Mild adjacent fat stranding. No perirectal or pericolonic adenopathy. No pelvic sidewall adenopathy. Pt had IO cysto today wo complications. 2. 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 See procedure section, highly suspect CVF however too much debris to visualize any fistula. Follow up after below or sooner if needed. Pt understands and agrees with plan. -Will send updated records to GI at [facility]. 3. Rising PSA following treatment for malignant [...] [address], [place] [address]- Additional Instructions: 07/20/24 for 6 m with PSA and Lupron Patient Education Cancer Screening for Males I, Kristin Dennis, personally scribed for Dr. Garcia on 03/06/2024 15:29:22. . Documentation recorded by the scribe, Kristin Dennis, accurately reflects the services(s) I performed and decisions made by me. Authenticated by Dr. Garcia on 03/06/2024 15:33:51. Problem List/Past Medical History Ongoing Arthritis BPH with urinary obstruction Colovesical fistula Insomnia Knee osteoarthritis Lower back pain OAB (overactive bladder) Personal history of prostate cancer Pneumaturia Prostate cancer Rising PSA following treatment for malignant neoplasm of prostate Historical Elevate (more content not included)... Normal [facility] Comment on above: Result Comment: Elec tronically Signed By: Luis GARCIA MD\.br\Date and Time Signed: 03/06/24 15:33 EST\.br\Electronically Co-Signed By: Kristin Dennis\.br\Date and Time Co-Signed: 03/06/24 15:29 EST Maykel 03-02-2024 L ---- Specimen: [id number] Received: 03/02/24 Status: KATLYN Anderson Num: [id number] Spec Type: Surgical Subm Dr: Lars Avelar MD Tissues: A Colon Biopsy (RECTAL LESION BX) Procedures: HE/2, Gross/Micro L4, AE1-AE3 Age/ Patient Sex Location Account Attending Physician Park Guidry/M [id number] Lars Avelar MD SPEC NUM: [id number] RECD: 03/02/24 STATUS: KATLYN ANDERSON NUM: [id number] JONI: 03/02/[address] [facility] [address]: Lars Avelar MD ENTERED: 03/02/[address] [facility] [address]: DYLNA TYPE: Surgical DEPT: S ORDERED: HE/2, Gross/Micro L4, AE1-AE3 ORDERED: HE/2, Gross/Micro L4, AE1-AE3 Supplemental Report Addendum 1 Entered: 03/08/24 Supplemental for findings of consultation report from [facility] -Ulcer with reactive stromal atypia, negative for carcinoma Addendum Signed (signature on file) Mei Luevano MD 03/08/241636 Pathological Diagnosis Rectal lesion biopsy -Gross only examination Note: -The case was previously submitted to [facility] or external consultation service by Dr. Leyda Heaton Specimen: [id number] Received: 03/02/24 Status: KATLYN Anderson Num: [id number] Spec Type: Surgical Subm Dr: Lars Avelar MD Tissues: A Colon Biopsy (RECTAL LESION BX) Procedures: HE/2, Gross/Micro L4, AE1-AE3 Patient: Park Guidry [id number] (Continued) Specimen: S2 Received: 03/02/24 (Continued) Signed (signature on file) Mei Luevano MD 03/08/24 1634 Specimen: [id number] Received: 03/02/24 Status: KATLYN Anderson Num: [id number] Spec Type: Surgical Subm Dr: Lars Avelar MD Tissues: A Colon Biopsy (RECTAL LESION BX) Procedures: HE/2, Gross/Micro L4, AE1-AE3 Patient: Park Guidry [id number] (Continued) Specimen: [id number] Received: 03/02/24 (Continued) Clinical Information Rectal ulcer Gross Description Part A is received in formalin labeled with the patients name, date of , and rectal lesion BX are 3 lucero-white, focally erythematous, friable, 0.2, 0.3 and 0.3 cm in greatest dimension tissue bits. The specimen is entirely submitted in a single cassette. (1, ns, [id number]) CPT Codes 35392 Specimen: [id number] Received: 03/02/24 Status: KATLYN Anderson Num: [id number] Spec Type: Surgical Subm Dr: Lars Avelar MD Tissues: A Colon Biopsy (RECTAL LESION BX) Procedures: HE/2, Gross/Micro L4, AE1-AE3 Patient: Park Guidry [id number] (Continued) Signed (signature on file) eMi Luevano MD 03/08/24 1634 Normal [facility] XR FEMUR RIGHT (MIN 2 VIEWS) on 02-05-2024 XR FEMUR RIGHT (MIN 2 VIEWS) History: Right femur IMN Comparison: 03/08/2023 Findings: [...] aspect can be seen. Otherwise alignment is well-maintained. Prior retained hardware from previous ORIF can be seen. Total knee arthroplasty with maintained alignment from previous and no obvious signs of loosening. Impression: Healing right femoral shaft fracture status post IMN. Most distal screw does appear to have bent. Stable previous hardware and total knee arthroplasty. Interpreted by: Mia Mckeon DO Phillips, Seth A, DO Signed by: Florian Sanchez DO 02/05/24 Final result Normal [facility] Ambulatory Visit Summaryon 1 04-01-2023 Ambulatory Visit Summary Ambulatory Visit Summary PARK GUIDRY :1940 Visit Date:01/30/2024 Ambulatory Visit Instructions Your Diagnosis Rising PSA following treatment for malignant neoplasm of prostate Prostate cancer Urge incontinence BPH with urinary obstruction Pneumaturia Your Care Team Attending Physician - JOSE [...] Following Appointments Follow Up with JOSE LYNN, Luis No, URL When: Comments: sched cysto Where: [facility] [address] , [place] [phone] Medications What How Much When Instructions New ciprofloxacin (Cipro 500 mg Tab) 1 Tablets By Mouth Every day take one tab day before procedure and one tab after procedure Pickup at [facility] Unchanged enzalutamide (enzalutamide 40 mg [...] physician if questions or concerns Pharmacy Information [facility]: [address] [place], [place] [id number] [phone] Medications and Immunizations Administered Given Lupron Depot [...] Painful urination. ??? An abnormality in the (more content not included)... Normal [facility] Urology Office/Clinic Noteon 01-30-2024 Urology Office/Clinic Note Urology Office/Clinic Note Chief Complaint 6mo f/u [...] <0.13 01/23/24 - <0.1 TRUS/bx 08/24/16 - [facility] 7 (4+3) x 1 core 9% of core involvement. [facility] 7 (3+4) x 1 core, 35% of core involvement. iPSA 35.73 & 10%. EBRT 2017. Brachytherapy 12/23/16. First Lupron inj 07/21/20. Most recent Lupron 08/15/23. Taking Enzalutamide 160 mg (4 tabs of 40 mg) qd, started 07/26/22. Shares he did not take Enzalutamide x4 [...] suspicious findings. CT AP w con 01/27/24 [facility] - Unremarkable bladder. Prostate seeds present. Irregular [...] See #4. Follow-up With When Contact Information Luis GARCIA MD, URL [facility] [address], [place] [phone] Additional Instructi (more content not included)... Normal [facility] Comment on above: Result Comment: Elec tronically Signed By: Luis GARCIA MD\.br\Date and Time Signed: 01/30/24 10:58 EST\.br\Electronically Co-Signed By: Sarah Beth Greene\.br\Date and Time Co-Signed: 01/30/24 10:53 EST Blood Urea Nitrogenon 2023 Urea nitrogen [Mass/Vol] 20 mg/dL Normal 7-25 [facility] Comment on above: Performed By: #### C ROB ANDRADE #### [facility] [address] [place] [id number] [facility] CT abdomen pelvis w conon CT abdomen pelvis w con [facility] [address] [place] [address] [place] [id number] Scan Report Signed Patient: Park Guidry MR#: [id number] : 1940 Acct:[id number] Age/Sex: 83 / M ADM Date: 01/27/24 Loc: Room: Type: [facility] Attending Dr: Lars Avelar MD Copies to: Lars Avelar MD Ordering Provider: Lars Avelar MD Date of Service: 01/27/24 CT/CT chest w con: Giant rectal ulcer, 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 ([id number]) CT/CT abdomen pelvis w con: Giant rectal [...] Franky Green M.D.01/27/2024 2:46 PM Dictation Location: [place] [address] Transcribed By: [facility] 01/27/24 1446 Dictated By: Franky Green DO 01/27/24 1431 Signed By: 01/27/24 1446 Normal [facility] Creatinineon 01-27-2024 Creatinine [Mass/Vol] 0.97 mg/dL Normal 0.70-1.30 [facility] Comment on above: Performed By: #### C REAT BUN #### [address] [facility] 53.87 Normal [facility] Comment on above: Result Comment: PERF ORMED BY: [place] [address] PATHOLOGIST NETWORK COMMUNICATIONS ENGINEER RADHA ZHENG M.D. Performed By: #### C REAT BUN #### [place] [address] [place] GFR/1.73 sq M.predicted MDRD (S/P/Bld) [Vol rate/Area] mL/min/{1.73_m2} Normal [facility] Comment on above: Performed By: #### C REAT BUN #### [place] [address] [place] Creatinine [Mass/volume] in Serum or PlasmaOrdered By: Imad Asa on 01-27-2024 Creatinine [Mass/Vol] Creatinine [Mass/v olume] in Serum or Plasma 0.70-1.30 [facility] No Panel InformationOrdered By: Imad Asaad on 01-27-2024 Estimated GFR (CKD-EPI) > 60.0 mL/Min [facility] Creatinine Clearance (Chem 53.87 [facility] Miscellaneous Pathology Test See comment [facility] Comment on above: See report. Scanned copy available in EMR. Pathology Request for Lab Co rpon 01-27-2024 Pathology Request for Lab Mehrdad Normal [facility] Comment on above: Order Comment: PATHO LOGY GI SPECIMEN Result Comment: See report. Scanned copy available in EMR. PERFORMED BY: [place] [address] PATHOLOGIST NETWORK COMMUNICATIONS ENGINEER RADHA ZHENG M.D. Performed By: #### P ATH TO [facility] #### [address] Urea nitrogen [Mass/volume] in Serum or PlasmaOrdered By: Imad Blaze on 01-27-2024 Urea nitrogen [Mass/Vol] Urea nitrogen [Mass/volume] in Serum or Plasma 08-31 [facility] No Panel Informationon 01-22 Free Prostate Specific Antigen <0.02 ng/mL N/A [facility] Comment on above: Tequila ECLIA methodol ogy. Prostate Specific Antigen Total <0.1 ng/mL 0.0-4.0 [facility] Comment on above: Tequila ECLIA methodol ogy.According to the [place] [employer], Serum PSAshould decrease and remain at undetectable levels afterradical prostatectomy. The AUA defines biochemicalrecurrence as an initial PSA value 0.2 ng/mL or greaterfollowed by a subsequent confirmatory PSA value 0.2 ng/mLor greater. Values obtained with different assay methods orkits cannot be used interchangeably. Results cannot beinterpreted as absolute evidence of the presence or absenceof malignant disease. Serum or plasma free prostat e specific antigen (PSA)/total PSA ratioon 01-23-2024 Free PSA/Total PSA [Mass fraction] Serum or plasma free prostate specific antigen (PSA)/total PSA ratio . [facility] Comment on above: Unable to calculate result since non-numeric resultobtained for component test.The table below lists the probability of prostate cancer formen with non-suspicious FERN results and total PSA between4 and 10 ng/mL, by patient age (Alex et al, DIONNE 1998,279:1542). % Free PSA 50-64 yr 65-75 yr 0.00-10.00% 56% 55% 10.01-15.00% 24% 35% 15.01-20.00% 17% 23% 20.01-25.00% 10% 20% >25.00% 5% 9%Please note: Alex et al did not make specific recommendations regarding the use of percent free PSA for any other population of men.Performed at: [facility] [id number] Director: Yoseph Cowan PhD, Phone: [phone] No Panel InformationOrdered By: Alpesh Dunn on 12-07-2023 E coli Shiga Toxin EIA [facility] Salmonella/Shigella Screen [facility] No Panel Informationon 12-06 Clostridium difficile (PCR)(LAB) Negative [facility] Miscellaneous Test Comment See comment [facility] Comment on above: Specimen Source: [facility] Stool - Stool - 700.100 Stool Campylobacter Culture Res 1 \R\ Campylobacter Culture\R\ No Campylobacter species isolated. [facility] Comment on above: [facility], XR FEMUR RIGHT (MIN 2 VIEWS) on [...] Florian Sanchez DO 11/14/23 Final result Normal [facility] Ambulatory Visit Summaryon 0 08-15-2023 Ambulatory Visit [...] Appointments Tuesday 11:30 AM EDT Where: [facility] Tuesday 11:30 AM EDT Where: [facility] Physical Tx Tuesday 10:00 AM EDT Where: [facility] Physical Tx 2023 11:30 AM EDT Where: [facility] Physical Tx Tuesday 11:30 AM EDT Where: [facility] Physical Tx 2023 10:45 AM EDT Where: [facility] Physical Tx Tuesday 11:15 AM EDT Where: [facility] Physical Tx You Need to Schedule the Following Appointments Follow Up with JOSE LYNN, GLORIA Brooks When: Comments: 6 mos w/ PSA and Lupron Where: [facility] [address], [place] [address] [phone] Medications What How Much When Instructions Unchanged [...] body a (more content not included)... Normal [facility] Urology Office/Clinic Noteon 08-15-2023 Urology Office/Clinic [...] <0.13 08/12/23 - <0.13 TRUS/bx 08/24/16 - [place] 7 (4+3) x 1 core 9% of core involvement. [place] 7 (3+4) x 1 core, 35% of [...] wo changes Follow-up With When Contact Information Luis GARCIA MD, URL [facility] [address], [place] [address] [phone] Additional Instructions: 6 mos w/ PSA and Lupron Patient Education Hormone Suppression Therapy for Prostate Cancer I, Sarah Beth Greene, personally scribed for Dr. Garcia on 08/15/2023 10:31:52. . Documentation recorded by the scribe, Sarah [...] total knee. M (more content not included)... Normal [facility] Comment on above: Result Comment: [...] would like to keep activity light. Normal [facility] PT - Otheron 07-29-2023 PT - Other Pt called to inform PT that he is scheduled to see Dr Mckeon next Tuesday for a consult for his continued right hip pain. Normal [facility] Nonvisit Note - PTon 024 [...] if this helps his pain reports. Normal [facility] Glucose Glucometer (BldC) [M ass/Vol]Ordered By: Marc Mckinney on 02-02-2023 Glucose [Mass/Vol] 115 mg/dL [facility] Comment on above: Random Glucose Refer ence Range is dependent on time and content of last meal. Glucose of more than 200 mg/dL in a nonstressed, ambulatory subject supports the diagnosis of Diabetes Mellitus. Basophils Auto (Bld) [#/Vol] Ordered By: Ashlyn Donato on 01-29-2023 Basophils (Bld) [#/Vol] 0.1 10*3/uL 0.0-0.2 [facility] Basophils/100 WBC Auto (Bld) Ordered By: Ashlyn Donato on 01-29-2023 Basophils/100 WBC (Bld) 1.2 % . [facility] Calcium [Mass/volume] in Ser um or PlasmaOrdered By: Ashlyn Donato on 01-29-2023 Calcium [Mass/Vol] 8.5 mg/dL 8.6-10.3 [facility] Carbon dioxide, total [Moles /volume] in Serum or PlasmaOrdered By: Ashlyn Donato on 01-29-2023 CO2 [Moles/Vol] 23.3 mmol/L 21.0-31.0 [facility] Chloride [Moles/volume] in S edith or PlasmaOrdered By: Ashlyn Donato on 01-29-2023 Chloride [Moles/Vol] 105 mmol/L 98-107 [facility] Creatinine [Mass/volume] in Serum or PlasmaOrdered By: Ashlyn Donato on 01-29-2023 Creatinine [Mass/Vol] 0.71 mg/dL 0.70-1.30 [facility] Eosinophils Auto (Bld) [#/Vo l]Ordered By: Ashlyn Donato on 01-29-2023 Eosinophils (Bld) [#/Vol] 0.4 10*3/uL 0.0-0.45 [facility] Eosinophils/100 WBC Auto (Bl d)Ordered By: Ashlyn Donato on 01-29-2023 Eosinophils/100 WBC (Bld) 3.8 % . [facility] Erythrocyte distribution wid th Auto (RBC) [Ratio]Ordered By: Ashlyn Donato on 01-29-2023 Erythrocyte distribution width (RBC) [Ratio] 14.0 % 12.0-14.8 [facility] Glucose [Mass/volume] in Ser um or PlasmaOrdered By: Ashlyn Donato on 01-29-2023 Glucose [Mass/Vol] 102 mg/dL 70-100 [facility] Comment on above: ADA recommended refe rence rangeRandom Glucose Reference Range is dependent on time and content of last meal. Glucose of more than 200 mg/dL in a nonstressed, ambulatory subject supports the diagnosis of Diabetes Mellitus. Hematocrit Auto (Bld) [Volum e fraction]Ordered By: Ashlyn Donato on 01-29-2023 Hematocrit (Bld) [Volume fraction] 30.8 % 38.8-50.0 [facility] Hemoglobin [Mass/volume] in BloodOrdered By: Ashlyn Donato on 01-29-2023 Hemoglobin (Bld) [Mass/Vol] 10.2 g/dL 13.0-17.0 [facility] Leukocytes [#/volume] correc portia for nucleated erythrocytes in Blood by Automated counOrdered By: Ashlyn Donato on 01-29-2023 WBC corrected for nucl RBC Auto (Bld) [#/Vol] 10.3 10*3/uL 4.1-10.5 [facility] Lymphocytes Auto (Bld) [#/Vo l]Ordered By: Ashlyn Donato on 01-29-2023 Lymphocytes (Bld) [#/Vol] 1.0 10*3/uL 1.00-4.8 [facility] Lymphocytes/100 WBC Auto (Bl d)Ordered By: Ashlyn Donato on 01-29-2023 Lymphocytes/100 WBC (Bld) 9.9 % . [facility] MCH Auto (RBC) [Entitic mass ]Ordered By: Ashlyn Donato on 01-29-2023 MCH (RBC) [Entitic mass] 30.0 pg 27.5-35.2 [facility] MCHC Auto (RBC) [Mass/Vol]Or dered By: Ashlyn Donato on 01-29-2023 MCHC (RBC) [Mass/Vol] 33.2 g/dL 32.5-35.6 [facility] MCV Auto (RBC) [Entitic vol] Ordered By: Ashlyn Donato on 01-29-2023 MCV (RBC) [Entitic vol] 90.4 fL 83.5-101 [facility] Monocytes Auto (Bld) [#/Vol] Ordered By: Ashlyn Donato on 01-29-2023 Monocytes (Bld) [#/Vol] 1.1 10*3/uL 0.0-0.8 [facility] Monocytes/100 WBC Auto (Bld) Ordered By: Ashlyn Donato on 01-29-2023 Monocytes/100 WBC (Bld) 10.6 % . [facility] Neutrophils Auto (Bld) [#/Vo l]Ordered By: Ashlyn Donato on 01-29-2023 Neutrophils (Bld) [#/Vol] 7.7 10*3/uL 1.8-7.7 [facility] Neutrophils/100 WBC Auto (Bl d)Ordered By: Ashlyn Donato on 01-29-2023 Neutrophils/100 WBC (Bld) 74.5 % . [facility] No Panel InformationOrdered By: Ashlyn Donato on 01-29-2023 Estimated GFR (CKD-EPI) > 60.0 mL/Min [facility] Creatinine Clearance (Chem 73.17 [facility] Nucleated erythrocytes [Pres ence] in Blood by Automated countOrdered By: Ashlyn Donato on 01-29-2023 Nucleated RBC Auto Ql (Bld) 0.1 /100{WBC} 0-0.5 [facility] Platelet mean volume Auto (B ld) [Entitic vol]Ordered By: Ashlyn Donato on 01-29-2023 Platelet mean volume (Bld) [Entitic vol] 9.0 fL 6.6-10.1 [facility] Platelets Auto (Bld) [#/Vol] Ordered By: Ashlyn Donato on 01-29-2023 Platelets (Bld) [#/Vol] 353 10*3/uL 150-450 [facility] Potassium [Moles/volume] in Serum or PlasmaOrdered By: Ashlyn Donato on 01-29-2023 Potassium [Moles/Vol] 4.2 mmol/L 3.5-5.1 [facility] RBC Auto (Bld) [#/Vol]Ordere d By: Ashlyn Donato on 01-29-2023 RBC (Bld) [#/Vol] 3.41 10*6/uL 3.90-5.60 [facility] Serum or plasma anion gap de terminationOrdered By: Ashlyn Donato on 01-29-2023 Anion gap [Moles/Vol] 13.9 mmol/L 6.0-15.0 [facility] Sodium [Moles/volume] in Ser um or PlasmaOrdered By: Ashlyn Donato on 01-29-2023 Sodium [Moles/Vol] 138 mmol/L 136-145 [facility] Urea nitrogen [Mass/volume] in Serum or PlasmaOrdered By: Ashlyn Donato on 01-29-2023 Urea nitrogen [Mass/Vol] 22 mg/dL 7-25 [facility] WBC Auto (Bld) [#/Vol]Ordere d By: Ashlyn Donato on 01-29-2023 WBC (Bld) [#/Vol] 10.3 10*3/uL 4.1-10.5 [facility] Glucose mean value [Mass/vol ume] in Blood Estimated from glycated hemoglobinOrdered By: Ashlyn Donato on 01-25-2023 Average glucose Estimated from glycated hemoglobin (Bld) [Mass/Vol] 134 mg/dL [facility] Hemoglobin A1c percentageOrd ered By: Ashlyn Donato on 01-25-2023 HbA1c (Bld) [Mass fraction] 6.3 % 4.3-5.6 [facility] Comment on above: Increased risk for d iabetes: 5.7 - 6.4diabetes: >6.4glycemic control for adults with diabetes: <7.0 Alanine aminotransferase [En zymatic activity/volume] in Serum or PlasmaOrdered By: Marc Mckinney on 01-20-2023 ALT [Catalytic activity/Vol] 4 U/L 7-52 [facility] Albumin [Mass/volume] in Ser um or Plasma by Bromocresol green (BCG) dye binding methoOrdered By: Marc Mckinney on 01-20-2023 Albumin BCG dye [Mass/Vol] 3.0 g/dL 3.5-5.7 [facility] Alkaline phosphatase [Enzyma tic activity/volume] in Serum or PlasmaOrdered By: Marc Mckinney on 01-20-2023 ALP [Catalytic activity/Vol] 64 U/L 34-104 [facility] Aspartate aminotransferase [ Enzymatic activity/volume] in Serum or PlasmaOrdered By: Marc Mckinney on 01-20-2023 AST [Catalytic activity/Vol] 12 U/L 13-39 [facility] Bilirubin.total [Mass/volume ] in Serum or PlasmaOrdered By: Marc Mckinney on 01-20-2023 Bilirubin [Mass/Vol] 0.8 mg/dL 0.3-1.0 [facility] Globulin Calc (S) [Mass/Vol] Ordered By: Marc Mckinney on 01-20-2023 Globulin (S) [Mass/Vol] 2.9 g/dL [facility] Prealbumin [Mass/volume] in Serum or PlasmaOrdered By: Marc Mckinney on 01-20-2023 Prealbumin [Mass/Vol] 8.4 mg/dL 17.0-34.0 [facility] Protein [Mass/volume] in Ser um or PlasmaOrdered By: Marc Mckinney on 01-20-2023 Protein [Mass/Vol] 5.9 g/dL 6.4-8.9 [facility] Serum or plasma albumin/glob ulin mass ratioOrdered By: Marc Mckinney on 01-20-2023 Albumin/Globulin [Mass ratio] 1.0 {ratio} [facility] TESTOSTERONE, TOTALon 2021 Testosterone [Mass/Vol] ng/dL Critically low 264-916 [facility] Comment on above: Result Comment: Adul t male reference interval is based on a population of healthy nonobese males (BMI <30) between 19 and 39 years old. Mars, et.al. JCEM 2017,102;0263-2227. PMID: [id number]. Performed By: #### T ESTTOT #### [facility] [address] [place] [address] Dr. Adrianna Luevano US REX DOP LEG [...] by: DANDY SANCHEZ Date: 2021-08-11 17:55 Normal [facility] CBC AUTO DIFFon 07-22-2021 BASO # 0.0 103/ul Normal 0.0-0.1 [facility] Comment on above: Performed By: #### C BC #### [facility] [address] [place] [address] Dr. Adrianna Luevano Basophils/100 WBC (Bld) 0.5 % Normal 0.2-2.[address] [facility] Comment on above: Performed By: #### C BC #### [facility] [address] [place] [address] Dr. Adrianna Luevano EO # 0.5 103/ul Normal 0.0-0.7 [facility] Comment on above: Performed By: #### C BC #### [facility] [address] [place] [address] Dr. Adrianna Luevano Eosinophils/100 WBC (Bld) 6.2 % Normal 0.9-7.0 [facility] Comment on above: Performed By: #### C BC #### [facility] [address] [place] [address] Dr. Adrianna Luevano Erythrocyte distribution width (RBC) [Ratio] 13.6 % Normal 11.0-15.0 [facility] Comment on above: Performed By: #### C BC #### [facility] [address] [place] [address] Dr. Adrianna Luevano Hematocrit (Bld) [Volume fraction] 45.9 % Normal 42.0-54.0 [facility] Comment on above: Performed By: #### C BC #### [facility] [address] [place] [address] Dr. Adrianna Luevano Hemoglobin (Bld) [Mass/Vol] 15.2 g/dL Normal 14.0-18.0 [facility] Comment on above: Performed By: #### C BC #### [facility] [address] [place] [address] Dr. Adrianna Luevano IG # 0.04 10e3/ul Critically high 0.00-0.03 [facility] Comment on above: Performed By: #### C BC #### [facility] [address] [place] [address] Dr. Adrianna Luevano IG % 0.5 % Normal 0.0-0.5 [facility] Comment on above: Performed By: #### C BC #### [facility] [address] [address] [address] Adrianna Luevano LYMPH # 1.2 103/ul Normal 1.2-3.8 [facility] Comment on above: Performed By: #### C BC #### [facility] [address] [place] [address] Dr. Adrianna Luevano Lymphocytes/100 WBC (Bld) 13.7 % Critically low 20.5-60.0 [facility] Comment on above: Performed By: #### C BC #### [facility] [address] [place] [address] Dr. Adrianna Luevano MANUAL DIFF REQ NO Normal [facility] Comment on above: Performed By: #### C BC #### [facility] [address] [place] [address] Dr. Adrianna Luevano MCH (RBC) [Entitic mass] 29.9 pg Normal 25.9-34.0 [facility] Comment on above: Performed By: #### C BC #### [facility] [address] [place] [address] Dr. Adrianna Luevano MCHC (RBC) [Mass/Vol] 33.1 g/dL Normal 29.9-35.2 [facility] Comment on above: Performed By: #### C BC #### [facility] [address] [place] [address] Dr. Adrianna Luevano MCV (RBC) [Entitic vol] 90.4 fL Normal 80.0-94.[address] [facility] Comment on above: Performed By: #### C BC #### [facility] [address] [place] [address] Dr. Adrianna Luevano MONO # 1.1 103/ul Critically high 0.3-0.8 [facility] Comment on above: Performed By: #### C BC #### [facility] [address] [place] [address] Dr. Adrianna Luevano Monocytes/100 WBC (Bld) 12.6 % Critically high 1.7-12. 0 [facility] Comment on above: Performed By: #### C BC #### [facility] [address] [place] [address] Dr. Adrianna Luevano NEUT # 5.7 103/ul Normal 1.4-6.5 [facility] Comment on above: Performed By: #### C BC #### [facility] [address] [place] [address] Dr. Adrianna Luevano Neutrophils/100 WBC (Bld) 66.5 % Normal 43.0-75.0 [facility] Comment on above: Performed By: #### C BC #### [facility] [address] [place] [address] Dr. Adrianna Luevano Platelet mean volume (Bld) [Entitic vol] 11.3 fL Normal 9.5-13.5 [facility] Comment on above: Performed By: #### C BC #### [facility] [address] [place] [address] Dr. Adrianna Luevano PLT 183 103/ul Normal 150-450 [facility] Comment on above: Performed By: #### C BC #### [facility] [address] [place] [address] Dr. Adrianna Luevano RBC 5.08 106/ul Normal 4.70-6.10 [facility] Comment on above: Performed By: #### C BC #### [facility] [address] [place] [address] Dr. Adrianna Luevano WBC 8.6 103/ul Normal 4.0-11.0 [facility] Comment on above: Performed By: #### C BC #### [facility] [address] [place] [address] Dr. Adrianna Luevano PROF CHEM 8 (BAS METB)on Anion gap [Moles/Vol] 13.4 mmol/L Normal [facility] Comment on above: Performed By: #### B MP #### [facility] [address] [place] [address] Dr. Adrianna Luevano Calcium [Mass/Vol] 8.9 mg/dL Normal 8.5-10.1 [facility] Comment on above: Performed By: #### B MP #### [facility] [address] [place] [address] Dr. Adrianna Luevano Chloride [Moles/Vol] 106 mmol/L Normal 98-107 [facility] Comment on above: Performed By: #### B MP #### [facility] [address] [address] [address] Adrianna Luevano CO2 [Moles/Vol] 23.1 mmol/L Normal 21.0-32.0 [facility] Comment on above: Performed By: #### B MP #### [facility] [address] [address] [address] Adrianna Luevano Creatinine [Mass/Vol] 0.87 mg/dL Normal 0.70-1.30 [facility] Comment on above: Performed By: #### B MP #### [facility] [address] [place] [address] Dr. Adrianna Luevano EGFR-AF CZECH >60 Normal >=60 [facility] Comment on above: Performed By: #### B MP #### [facility] [address] [address] [address] Adrianna Luevano EGFR-NON AF CZECH >60 Normal >=60 [facility] Comment on above: Performed By: #### B MP #### [facility] [address] [address] [address] Adrianna Luevano Glucose [Mass/Vol] 104 mg/dL Normal 74-106 [facility] Comment on above: Performed By: #### B MP #### [facility] [address] [address] [address] Adrianna Luevano Potassium [Moles/Vol] 4.5 mmol/L Normal 3.5-5.1 [facility] Comment on above: Performed By: #### B MP #### [facility] [address] [address] [address] Adrianna Luevano Sodium [Moles/Vol] 138 mmol/L Normal 136-145 [facility] Comment on above: Performed By: #### B MP #### [facility] [address] [address] [address] Adrianna Luevano Urea nitrogen [Mass/Vol] 22.0 mg/dL Critically high 7.0-18.0 [facility] Comment on above: Performed By: #### B MP #### [facility] [address] [place], [place] [address] Dr. Adrianna Luevano Urea nitrogen/Creatinine [Mass ratio] 25.3 mg/mg Normal [facility] Comment on above: Performed By: #### B MP #### [facility] [address] [place], [place] [address] Dr. Adrianna Luevano XR CHEST 2 Von [...] by: DANDY SANCHEZ Date: 2021-05-20 15:58 Normal [facility] Vital Signs Date Time Vital Sign Value Performing Clinician Facility 05-09-2024 16:02-0400 Diastolic blood pressure 82 mm[Hg] Todd Caballero MD Work Phone: [facility] 05-09-2024 16:02-0400 Systolic blood pressure 146 mm[Hg] Todd Caballero MD Work Phone: [facility] 04-03-2024 07:24-0500 Body height 165.1 cm Alpesh Ball DO Work Phone: [facility] 04-03-2024 07:24-0500 Body weight 81.64 kg Alpesh Ball DO Work Phone: [facility] 03-30-2024 14:33-0500 Body temperature 97.81 [degF] Donna Singh MD Work Phone: [facility] 03-30-2024 14:33-0500 Diastolic blood pressure 92 mm[Hg] Donna Singh MD Work Phone: [facility] 03-30-2024 14:33-0500 Heart rate 83 /min Donna Singh MD Work Phone: [facility] 03-30-2024 14:33-0500 SaO2% (BldA) [Mass fraction] 97 % Donna Singh MD Work Phone: [facility] 03-30-2024 14:33-0500 Systolic blood pressure 151 mm[Hg] Donna Singh MD Work Phone: [facility] 03-02-2024 09:30-0500 Diastolic blood pressure 84 mm[Hg] Alpesh Ball DO Work Phone: [facility] 03-02-2024 09:30-0500 Heart rate 74 /min Alpesh Ball DO Work Phone: [facility] 03-02-2024 09:30-0500 Respiratory rate 16 /min Alpesh Ball DO Work Phone: [facility] 03-02-2024 09:30-0500 SaO2% (BldA) [Mass fraction] 98 % Alpesh Ball DO Work Phone: [facility] 03-02-2024 09:30-0500 Systolic blood pressure 137 mm[Hg] Alpesh Ball DO Work Phone: [facility] 03-02-2024 07:35-0500 Body height 170.18 cm Alpesh Ball DO Work Phone: [facility] 03-02-2024 07:35-0500 Body weight 80.73 kg Alpesh Ball DO Work Phone: [facility] 01-27-2024 13:36-0500 Diastolic blood pressure 72 mm[Hg] Alpesh Ball DO Work Phone: [facility] 01-27-2024 13:36-0500 Heart rate 80 /min Alpesh Ball DO Work Phone: [facility] 01-27-2024 13:36-0500 Respiratory rate 16 /min Alpesh Ball DO Work Phone: [facility] 01-27-2024 13:36-0500 SaO2% (BldA) [Mass fraction] 95 % Alpesh Ball DO Work Phone: [facility] 01-27-2024 13:36-0500 Systolic blood pressure 117 mm[Hg] Alpesh Ball DO Work Phone: [facility] 01-27-2024 11:20-0500 Body height 172.72 cm Alpesh Ball DO Work Phone: [facility] 01-27-2024 11:20-0500 Body weight 81.64 kg Alpesh Ball DO Work Phone: [facility] 12-19-2023 11:30-0500 Body height 170.18 cm Alpesh Ball DO Work Phone: [facility] 12-19-2023 11:30-0500 Body mass index (BMI) [Ratio] 28.1 kg/m2 Alpesh Ball DO Work Phone: [facility] 12-19-2023 11:30-0500 Body weight 81.64 kg Alpesh Ball DO Work Phone: [facility] 12-19-2023 11:30-0500 Diastolic blood pressure 99 mm[Hg] Alpesh Ball DO Work Phone: [facility] 12-19-2023 11:30-0500 Heart rate 83 /min Alpesh Ball DO Work Phone: [facility] 12-19-2023 11:30-0500 Respiratory rate 12 /min Alpesh Ball DO Work Phone: [facility] 12-19-2023 11:30-0500 Systolic blood pressure 162 mm[Hg] Alpesh Ball DO Work Phone: [facility] 02-09-2023 11:30-0500 Body height 170.18 cm Alpesh Ball Other [facility] [employer] Other 02-09-2023 11:30-0500 Body mass index (BMI) [Ratio] 30.48 kg/m2 Alpesh Ball Other [facility] [employer] Other 02-09-2023 11:30-0500 Body weight 88.27 kg Alpesh Ball Other [employer] Other 02-09-2023 11:30-0500 Diastolic blood pressure 74 mm[Hg] Alpesh Ball Other [employer] Other 02-09-2023 11:30-0500 Respiratory rate 16 /min Alpesh Ball Other [employer] Other 02-09-2023 11:30-0500 Systolic blood pressure 136 mm[Hg] Alpesh Ball Other [employer] Other 02-02-2023 08:31-0500 Body temperature 97.8 [degF] DO Alpesh Ball Work Phone: [facility] 02-02-2023 08:31-0500 Diastolic blood pressure 71 mm[Hg] DO Alpesh Ball Work Phone: [facility] 02-02-2023 08:31-0500 Heart rate 81 /min DO Alpesh Ball Work Phone: [facility] 02-02-2023 08:31-0500 Respiratory rate 17 /min DO Alpesh Ball Work Phone: [facility] 02-02-2023 08:31-0500 SaO2% (BldA) [Mass fraction] 96 % DO Alpesh Ball Work Phone: [facility] 02-02-2023 08:31-0500 Systolic blood pressure 132 mm[Hg] DO Alpesh Ball Work Phone: [facility] 02-02-2023 06:54-0500 Body height 170.18 cm DO Alpesh Ball Work Phone: [facility] 01-30-2023 05:44-0500 Body weight 90.5 kg DO Alpesh Ball Work Phone: [facility] 01-20-2023 16:00-0500 Inhaled oxygen flow rate 2 L/min DO Alpesh Ball Work Phone: [facility] 12-24-2022 09:00-0500 Body height 170.18 cm Alpesh Ball Other [facility] [employer] Other 12-24-2022 09:00-0500 Body mass index (BMI) [Ratio] 31.13 kg/m2 Alpesh Ball Other [employer] Other 12-24-2022 09:00-0500 Body weight 90.18 kg Alpesh Ball Other [employer] Other 12-24-2022 09:00-0500 Diastolic blood pressure 87 mm[Hg] Alpesh Ball Other [employer] Other 12-24-2022 09:00-0500 Respiratory rate 16 /min Alpesh Ball Other [employer] Other 12-24-2022 09:00-0500 Systolic blood pressure 132 mm[Hg] Alpesh Ball Other [employer] Other 11-24-2022 14:30-0400 Body height 170.18 cm Alpesh Ball Other [employer] Other 11-24-2022 14:30-0400 Body mass index (BMI) [Ratio] 31.04 kg/m2 Alpesh Ball Other [employer] Other 11-24-2022 14:30-0400 Body weight 89.9 kg Alpesh Ball Other [employer] Other 11-24-2022 14:30-0400 Diastolic blood pressure 87 mm[Hg] Alpesh Ball Other [employer] Other 11-24-2022 14:30-0400 Respiratory rate 16 /min Alpesh Ball Other [employer] Other 11-24-2022 14:30-0400 SaO2% (BldA) [Mass fraction] 97 % Alpesh Ball Other [employer] Other 11-24-2022 14:30-0400 Systolic blood pressure 137 mm[Hg] Alpesh Ball Other [employer] Other 06-23-2022 14:30-0400 Body height 170.18 cm Alpesh Ball Other [employer] Other 06-23-2022 14:30-0400 Body mass index (BMI) [Ratio] 32.14 kg/m2 Alpesh Ball Other [employer] Other 06-23-2022 14:30-0400 Body weight 93.08 kg Alpesh Ball Other [employer] Other 06-23-2022 14:30-0400 Diastolic blood pressure 81 mm[Hg] Alpesh Ball Other [employer] Other 06-23-2022 14:30-0400 Respiratory rate 16 /min Alpesh Ball Other [employer] Other 06-23-2022 14:30-0400 Systolic blood pressure 126 mm[Hg] Alpesh Ball Other [employer] Other Encounters Encounter Date Encounter Type Care Provider Facility Start: 01-11-2025 ambulatory Luis Meyer ty:[facility] Start: 07-20-2024 End: 07-20-2024 ambulatory Luis GARCIA Facility:[facility] Start: 05-09-2024 End: 05-09-2024 ambulatory DONNA SINGH Facility:[facility] Start: 05-09-2024 End: 05-09-2024 Patient encounter procedure Todd Caballero MD Work Phone: Urology Comment on above: Prostate cancer (HCC ) (Primary Dx); Rectourethral fistula; Adverse effect of radiation, sequela Start: 04-03-2024 End: 04-03-2024 Patient encounter procedure Alpesh Dunn DO Work Phone: [facility] [place] Work Phone: Start: 04-03-2024 End: 04-03-2024 ambulatory Alpesh Dunn DO Work Phone: [facility] Work Phone: Start: 03-30-2024 End: 03-30-2024 ambulatory DONNA SINGH Facility:[facility] Start: 03-30-2024 End: 03-30-2024 Patient encounter procedure Donna Singh MD Work Phone: Colorectal Surgery Comment on above: Rectal lesion (Prima ry Dx); Rectourethral fistula; Anorectal ulcer Start: 03-22-2024 End: 03-22-2024 Telephone encounter Donna Singh MD Work Phone: Colorectal Surgery Start: 03-09-2024 End: 03-09-2024 Telephone encounter Donna iSngh MD Work Phone: Colorectal Surgery Start: 03-08-2024 End: 03-08-2024 Telephone encounter Donna Singh MD Work Phone: Colorectal Surgery Comment on above: Appointment Start: 03-06-2024 End: 03-06-2024 Telephone encounter Donna Singh MD Work Phone: Colorectal Surgery Comment on above: Appointment Start: 03-06-2024 End: 03-06-2024 ambulatory Luis GARCIA Facility: [facility] Start: 03-02-2024 Non-patient / Non-visit Catia marshall Ball DO Work Phone: [facility] Work Phone: Start: 03-02-2024 End: 03-02-2024 Admission to same day surgery center Alpesh Ball DO Work Phone: [facility] Work Phone: Start: 03-02-2024 End: 03-02-2024 ambulatory Alpesh Ball DO Work Phone: [facility] Work Phone: Start: 01-30-2024 End: 01-30-2024 ambulatory Lius R [facility]IA [facility] Start: 01-27-2024 Non-patient / Non-visit Benjam in Ball DO Work Phone: [facility] Work Phone: Start: 01-27-2024 End: 01-27-2024 Admission to same day surgery center Alpesh Dunn DO Work Phone: [facility] Work Phone: Start: 01-27-2024 End: 01-27-2024 ambulatory Imad Asaad Facility:[facility] Start: 01-23-2024 Non-patient / Non-visit Benjam in Ball DO Work Phone: [facility] Work Phone: Start: 12-19-2023 End: 12-19-2023 Patient encounter procedure Alpesh Ball DO Work Phone: [facility] Work Phone: Start: 12-07-2023 Non-patient / Non-visit Benjam in Ball DO Work Phone: [facility] Work Phone: Start: 08-15-2023 End: 08-15-2023 ambulatory Luis GARCIA Facility:[facility] Start: 08-02-2023 End: 08-02-2023 ambulatory [facility] Start: 06-27-2023 End: 06-27-2023 ambulatory Alpesh Dunn Other [employer] Other Start: 06-27-2023 Telephone encounter Alpesh Dunn [facility] Start: 05-19-2023 End: 05-19-2023 ambulatory [facility] Start: 03-08-2023 End: 03-08-2023 ambulatory [facility] Start: 02-09-2023 End: 02-09-2023 ambulatory Alpesh Dunn Other [employer] Other Start: 02-09-2023 Transitional care johnny schmittalessio srvc 14 day discharge Alpesh Dunn [facility] Start: 02-03-2023 End: 02-03-2023 ambulatory Alpesh Dunn Other [employer] Other Start: 02-03-2023 Telephone encounter Alpesh Dunn [facility] Start: 01-20-2023 End: 01-20-2023 ambulatory Alpesh Dunn Other [employer] Other Start: 01-20-2023 Telephone encounter Alpesh Dunn [facility] Start: 01-19-2023 End: 02-02-2023 Evaluation and management of inpatient DO Alpesh Dunn Work Phone: [facility] Work Phone: Start: 12-24-2022 End: 12-24-2022 ambulatory Alpesh Dunn Other [employer] Other Start: 12-24-2022 Office outpatient vi sit 25 minutes Alpesh Shaun [facility] Start: 12-22-2022 End: 12-22-2022 ambulatory Alpesh Ball Other [employer] Other Start: 12-22-2022 Telephone encounter Alpesh Dunn [facility] Start: 11-24-2022 End: 11-24-2022 ambulatory Alpesh Shaun Other [employer] Other Start: 11-24-2022 Office outpatient vi sit 25 minutes Alpesh Dunn [facility] Start: 11-24-2022 Telephone encounter Alpesh [facility] Start: 07-22-2022 End: 07-22-2022 ambulatory Alpesh Dunn Other [employer] Other Start: 07-22-2022 Telephone encounter Alpesh [facility] Start: 06-23-2022 End: 06-23-2022 ambulatory Alpesh Dunn Other [employer] Other Start: 06-23-2022 Patient encounter procedure Alpesh [facility] Start: 01-20-2022 End: 01-21-[address] LUIS GARCIA Facility:[facility] Start: 08-11-2021 End: 08-11-[address] ALPESH DUNN Facility:[facility] Start: 07-22-2021 End: 07-23-[address] LUIS GARCIA Facility:[facility] Start: 05-20-2021 End: 05-21-[address] ALPESH DUNN Facility:[facility] Procedures Date Procedure Procedure Detail Performing Clinician Start: 04-03-2024 MRI of pelvis with contrast Alpesh Bal l DO Work Phone: Start: 03-02-2024 Flexible fiberoptic sigmoidoscopy Catia in Shaun DO Work Phone: Start: 01-27-2024 Computed tomography of abdomen and pelvis with contrast Alpesh Ball DO Work Phone: Start: 01-27-2024 CT of thorax with contrast Alpesh Ball DO Work Phone: Start: 01-27-2024 Esophagogastroduodenoscopy Alpesh Ball DO Work Phone: Start: 12-07-2023 E coli Shiga Toxin EIA Alpesh Ball DO Work Phone: Start: 12-07-2023 Salmonella/Shigella Screen Alpesh Ball DO Work Phone: Start: 01-26-2023 CT of head without contrast DO Alpesh Ball Work Phone: Start: 01-21-2023 Plain X-ray of right rib DO Alpesh Bal l Work Phone: Start: 01-20-[address] ALPESH DUNN Comment on above: Performed By: #### PSAD #### [facility] [address] [place] [address] Dr. Adrianna Luevano Start: 07-22-[address] ALPESH DUNN Comment on above: Performed By: #### PSAD #### [facility] [id number] Adrianna Luevano Plan of Treatment Date Care Activity Detail Author Start: 12-17-2032 Urine microalbumin profile DTaP,Tdap,Td Vaccine (3 - Td or Tdap) [facility] Start: 01-19-2026 Diabetes Screening Diabetes Screenin g [facility] Start: 03-30-2024 End: 03-30-2024 Patient encounter procedure 03/30/2024 2:40 PM EST Office Visit Colorectal Surgery [facility] [address] [place] [address] Donna Singh MD [facility] [address] [id number] New Pt: Ulcer of Anus and rectum,Ref By: Dr. Shi Colorectal Surgery Comment on above: New Pt: Ulcer of Tamie s and rectum,Ref By: Dr. Shi Start: 03-02-2024 [facility] Start: 02-08-2024 Advance Directive Discussion Advance Directive Discussion [facility] Start: 01-30-2024 [facility] Start: 10-09-2023 Covid-19 Vaccine ( season) Covid-19 Vaccine ( season) [facility] Start: 10-09-2023 Covid-19 Vaccine ( season) Covid-19 Vaccine ( season) [facility] Start: 10-09-2023 Influenza vaccination Influenza Vacc ine (#1) [facility] Start: 02-02-2023 [facility] Start: 01-20-2023 Administration of prophylactic treatment [facility] Start: 01-19-2023 Hospital admission [facility] Start: 01-19-2023 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 [facility] Start: 2013 RSV Vaccine (1 - 1-d ose 75+ series) RSV Vaccine (1 - 1-dose 75+ series) [facility] Start: 1988 Pneumococcal Vaccine : 50+ (1 of 1 - PCV) Pneumococcal Vaccine: 50+ (1 of 1 - PCV) [facility] Start: 1988 Shingrix Vaccine (1 of 2) Darling grix Vaccine (1 of 2) [facility] Start: 05-29-1983 Diabetes Screening Diabetes Screenin g [facility] Start: 1957 Urine microalbumin profile DTaP,Tdap,Td Vaccine (1 - Tdap) [facility] Start: 1956 Anxiety Screening Anxiety Screening [facility] Start: 1956 Depression Screening Depression Scre ening [facility] CT Abdomen and Pelvi s W contrast IV [facility] Patient Education [facility] Work Phone: Patient referral [facility] Work Phone: [facility] Immunizations Immunization Date Immunization Notes Care Provider Fa [facility] 01-14-2023 influenza virus vaccine, unspecified formulation Donna Singh MD Work Phone: [facility] 11-25-2021 influenza, high dose seasonal, preservative-free Alpesh Dunn Other [employer] Other 11-25-2021 influenza virus vaccine, unspecified formulation Alpesh Dunn DO Work Phone: [facility] 03-27-2020 COVID-19 Vaccine Pfi zer - Documentation Purposes Only Alpesh Dunn Other [facility] 03-04-2020 COVID-19 Vaccine Pfi zer - Documentation Purposes Only Alpesh Dunn Other [facility] 10-23-2019 pneumococcal polysaccharide vaccine, 23 valent Alpesh Dnun Other [facility] 12-10-2016 influenza virus vaccine, split virus (incl. purified surface antigen) Alpesh Dunn Other [employer] [facility] [employer] Other 12-10-2016 influenza virus vaccine, unspecified formulation Alpesh Dunn DO Work Phone: [facility] 12-03-2015 influenza virus vaccine, split virus (incl. purified surface antigen) Alpesh Dunn Other [facility] [employer] Other 12-03-2015 influenza virus vaccine, unspecified formulation Alpesh Dunn DO Work Phone: [facility] 12-01-2015 pneumococcal conjuga te vaccine, 13 valent Alpesh Dunn Other [facility] 06-26-2009 pneumococcal polysaccharide vaccine, 23 valent Alpesh Dunn Other [facility] Payers Date Payer Category Payer Unknown [id number] 2024 Self-pay [id number] 2016 Private Health Insurance [id number] 2003 Medicare [id number] 2003 Medicare [id number] 2003 Medicare [id number] 2003 Medicare [id number] 1959 Medicare [id number] 1959 Unknown [id number] 1938 Unknown [id number] 1938 Unknown [id number] [id number] 1938 Unknown [id number] 1938 Unknown [id number] [id number] 1938 Unknown [id number] 1938 Unknown [id number] [id number] 1938 Unknown [id number] [id number] 1938 Unknown [id number] [id number] 1938 Unknown [id number] [id number] 1938 Unknown [id number] [id number] 1938 Unknown [id number] [id number] 1938 Unknown [id number] [id number] 1938 Unknown [id number] [id number] Unknown [id number] [id number] Unknown [facility] Health Claims [id number] Unknown [id number] Unknown [id number] Unknown [id number] Social History Date Type Detail Facility Start: 08-17-2017 End: 03-30-2024 Sex Assigned At [facility] [employer] Other Start: 01-20-2023 End: 03-30-2024 Tobacco smoking status NHIS Never smoked tobacco (finding) [facility] Start: 1940 Sex Assigned At Male F [facility] Start: 03-02-2024 Tobacco smoking status NHIS Ex-smoker (finding) [facility] Start: 03-02-2024 End: 04-04-2024 Sex Male (finding) [facility] Start: 02-02-2017 End: 03-30-2024 Tobacco use and exposure Former smokeless tobacco user [facility] Start: 08-17-2017 End: 03-30-2024 History of Social function [facility] National Score (1-100), lower number is lower risk Not on file [facility] Start: 1940 Sex assigned at Not on file [facility] Goals Date Patient Goal Desired Activity /State Functional Status Date Assessment Result Facility 02-02-2023 Functional status 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 It is located below the bladder in men, in front of the rectum. Prostate cancer is the abnormal growth of cells in the prostate gland. What are the causes? The exact cause of this condition is not known. What increases the risk? You are more likely to develop this condition if: ??? You are 65 years of age or older. ??? You have a family history of prostate cancer. ??? You have a family history of breast and ovarian cancer. ??? You have genes that are passed from parent to child (inherited), such as BRCA1 and BRCA2. ??? You have Napier syndrome. men and men of descent are diagnosed with prostate cancer at higher rates than other men. The reasons for this are not well understood and are likely due to a combination of genetic and environmental factors. What are the signs or symptoms? Symptoms of this condition include: ??? Problems with urination. This may include: ? A weak or interrupted flow of urine. ? Trouble starting or stopping urination. ? Trouble emptying the bladder all the way. ? The need to urinate more often, especially at night. ??? Blood in urine or semen. ??? Persistent pain or discomfort in the lower back, lower abdomen, or hips. ??? Trouble getting an erection. ??? Weakness or numbness in the legs or feet. How is this diagnosed? This condition can be diagnosed with: ??? A digital rectal exam. For this exam, a health care provider inserts a gloved finger into the rectum to feel the prostate gland. ??? A blood test called a prostate-specific antigen (PSA) test. ??? A procedure in which a sample of tissue is taken from the prostate and checked under a microscope (prostate biopsy). ??? An imaging test called transrectal ultrasonography. Once the condition is diagnosed, tests will be done to determine how far the cancer has spread. This is called staging the cancer. Staging may involve imaging tests, such as a bone scan, CT scan, PET scan, or MRI. Stages of prostate cancer The stages of prostate cancer are as follows: ??? Stage 1 (I). At this stage, the cancer is found in the prostate only. The cancer is not visible on imaging tests, and it is usually found by accident, such as during prostate surgery. ??? Stage 2 (II). At this stage, the cancer is more advanced than it is in stage 1, but the cancer has not spread outside the prostate. ??? Stage 3 (III). At this stage, the cancer has spread beyond the outer layer of the prostate to nearby tissues. The cancer may be found in the seminal vesicles, which are near the bladder and the prostate. ??? Stage 4 (IV). At this stage, the cancer has spread to other parts of the body, such as the lymph nodes, bones, bladder, rectum, liver, or lungs. Prostate cancer grading Prostate cancer is also graded according to how the cancer cells look under a microscope. This is called the Pj score and the total score can range from 6?10, indicating how likely it is that the cancer will spread (metastasize) to other parts of the body. The higher the score, the greater the likelihood that the cancer will spread. ??? [place] 6 or lower: This indicates that the cancer cells look similar to normal prostate cells (well differentiated). ??? [place] 7: This indicates that the cancer cells look somewhat similar to normal prostate cells (moderately differentiated). ??? [place] 8, 9, or 10: This indicates that the cancer cells look very different than normal prostate cells (poorly differentiated). How is this treated? Treatment for this condition depends on several factors, including the stage of the cancer, your age, personal preferences, and your overall health. Talk with your health care provider about treatment options that are recommended for you. Common treatments include: ??? Observation for early stage prostate cancer (active surveillance). This involves having exams, blood tests, and in some cases, more biopsies. For some men, this is the only treatment needed. ??? Surgery. Types of surgeries include: ? Open surgery (radical prostatectomy). In this surgery, a larger incision is made to remove the prostate. ? A laparoscopic radical prostatectomy. This is a surgery to remove the prostate and lymph nodes through several small incisions. It is often referred to as a minimally invasive surgery. ? A robotic radical prostatectomy. This is laparoscopic surgery to remove the prostate and lymph nodes with the help of robotic arms that are controlled by the surgeon. ? Cryoablation. This is surgery to freeze and destroy cancer cells. ??? Radiation treatment. Types of radiation treatment include: ? External beam radiation. This type aims beams of radiation from outside the body at the prostate to destroy cancerous cells. ? Brachytherapy. This type uses radioactive needles, seeds, wires, o (more content not included)... [facility] 05-09-2024 Note HNO ID: [id number] Author: TODD CABALLERO MD Service: ? Author Type: Physician Type: Progress Notes Filed: 05/09/2024 21:00 Note Text: [facility] UROLOGY NEW PATIENT CLINIC NOTE SERVICE DATE: 05/09/2024 NAME: Park Guidry REFERRED BY: Donna Singh [id number] [id number] [address] Singh for an [...] outlet obstruction Todd Caballero MD Associate Staff [facility] [place] Department of Urology [facility] 05-09-2024 History of Presen t illness Narrative Images from the original note were not included. [facility] UR[facility] NEW PATIENT CLINIC NOTE SERVICE DATE: 05/09/2024 NAME: Park Guidry REFERRED BY: Donna Singh [id number] [id number] Consultation requested by Dr. Singh for an [...] 146/82 General: pleasant Psych: euthymic, NAD Neuro: A&Ox3. CV: normal perfusion, hemodynamically stable Resp: normal [...] outlet obstruction Todd Caballero MD Associate Staff [facility] [place] [facility] Post void residual done on patient with 0 cc residual volume remaining. notified. Nikki Wallace RN documented in this encounter [facility] 05-09-2024 Note HNO ID: [id number] Author: NIKKI WALLACE RN Service: ? Author Type: Registered Nurse Type: Progress Notes Filed: 05/09/2024 21:00 Note Text: Post void residual done on patient with 0 cc residual volume remaining. notified. Nikki Wallace RN [facility] 03-30-2024 History of Presen t illness Narrative COLORECTAL SURGERY March 30, 2024 Park Guidry 83 year old This consult was requested by Dr. Lars Shi and my final recommendations will be communicated to the requesting health care provider by way of the shared medical record for internal providers or letter via the [employer] for external providers. Chief Complaint: ulcer of anus and rectum History of Present Illness: Park Guidry is a 83 year old male presents today for evaluation of rectal ulcer. MRI scheduled for 04/03/24 at [facility] CT CAP 01/27/24 - [facility] Scan on 03/05/2024 3:53 PM by Celia Garcia: [facility] Chest,Abdomen and Pelvis 01/27/24 Impression: Circumferential irregular wall thickening of the distal sigmoid colon and rectum likely corresponding with patient's history of rectal ulceration and suspicion for malignancy. No adjacent enlarged lymph nodes. No distal metastatic disease of the chest abdomen or pelvis Sigmoidoscopy 03/02/24 - Dr. Avelar Scan on 03/05/2024 3:50 PM by Celia Garcia: [facility]- Sigmoidoscopy Notes 03/02/24 Rectum: Excavated ulcerated lesion in the rectum (4 cm), biopsied using jumbo biopsy Pathology 03/02/24 Scan on 03/22/2024 4:01 PM by Celia Garcia: [facility]- Pathology Report 03/02/24 - Ulcer with reactive stromal atypia, negative for carcinoma Colonoscopy 01/27/24 - Dr. Avelar Scan on 03/05/2024 3:51 PM by Celia Garcia: [facility]- EGD & Colonoscopy Report 01/27/24 Ascending colon: A 2 [...] Size: Regular Adult) Pulse 83 Temp 36.6 C (97.8 F) SpO2 97% General Appearance: Well appearing, alert, in no acute distress, well-hydrated, well nourished. Anorectal: External exam reveals no lesions. Digital rectal exam reveals anterior divot consistent with ulcer Privacy Compliance Manager present: Yes, Ximena Sheets Anoscopy could not be performed due to patient discomfort The sensitive examination was discussed with the Patient or Patient's Authorized Foam Rubber Fabricator. As applicable, any other physician, advance practice provider, medical student, or other health professional student that will be observing or involved in the sensitive examination for educational or training purposes was discussed with the Patient or Authorized Foam Rubber Fabricator. The Patient or Authorized Foam Rubber Fabricator has agreed to proceed with the sensitive [...] needed Medical Decision Making: Data Reviewed: Tests & Documents Reviewed/ordered: Review of prior notes from Dr. Avelar Review of Pathology Review of Imaging: CT Abdomen, CT Pelvis, CT Chest Review of Labs: CBC, BMP Review of Procedures / Tests: Colonoscopy I have discussed Park Guidry's treatment plan and/or results with Dr. Avelar. Risk of morbidity, mortality and/or complications of treatment plan: high Donna Singh MD Colorectal Surgery documented in this encounter [facility] 03-30-2024 Note HNO ID: [id number] Author: DONNA SINGH MD Service: ? Author [...] rectal ulcer. MRI scheduled for 04/03/24 at [facility] CT CAP 01/27/24 - [facility] Scan on 03/05/2024 3:53 PM by Celia Garcia: [facility] CT Chest,Abdomen and Pelvis 01/27/24 Impression: Circumferential irregular wall thickening of the distal sigmoid colon and rectum likely corresponding with patient's history of rectal ulceration and suspicion for malignancy. No adjacent enlarged lymph nodes. No distal metastatic disease of the chest abdomen or pelvis Sigmoidoscopy 03/02/24 - Dr. Avelar Scan on 03/05/2024 3:50 PM by Celia Garcia: [facility] Sigmoidoscopy Notes 03/02/24 Rectum: Excavated ulcerated lesion in the rectum (4 cm), biopsied using jumbo biopsy Pathology 03/02/24 Scan on 03/22/2024 4:01 PM by Celia Garcia: [facility] Pathology Report 03/02/24 - Ulcer with reactive stromal atypia, negative for carcinoma Colonoscopy 01/27/24 - Dr. Avelar Scan on 03/05/2024 3:51 PM by Celia Garcia: [facility]- EGD AND Colonoscopy Report 01/27/24 Ascending colon: [...] exam reveals anterior divot consistent with ulcer Privacy Compliance Manager present: Yes, Ximena Sheets Anoscopy could not be performed due to patient discomfort The sensitive examination was discussed with the Patient or Patient's Authorized Foam Rubber Fabricator. As applicable, any other physician, advance practice provider, medical student, or other health professional student that will be observing or involved in the sensitive examination for educational or training purposes was discussed with the Patient or Authorized Foam Rubber Fabricator. The Patient or Authorized Foam Rubber Fabricator has agreed to proceed with the sensitive [...] notes from Dr. Avelar Review of Pathology Revie (more content not included)... [facility] 03-22-2024 Telephone encounter Note Called [facility] Application Engineer, Lamar Matthew, and told her I was looking through the records and wondered if we could get a copy of pathology from sigmoidoscopy on 03/02/24 and also if he has had MRI rectum yet and if so, if we could get that also. Provided cell phone number for return call. [facility] 03-22-2024 Miscellaneous Notes Called [facility] Application Engineer, Lamar Matthew, and told her I was looking through the records and wondered if we could get a copy of pathology from sigmoidoscopy on 03/02/24 and also if he has had MRI rectum yet and if so, if we could get that also. Provided cell phone number for return call. documented in this encounter [facility] 03-09-2024 Telephone encounter Note 03/09 Tried 3 times to contact patient unable to reach patient [facility] 03-09-2024 Miscellaneous Notes 03/09 Tried 3 times to contact patient unable to reach patient documented in this encounter [facility] 03-09-2024 Telephone encounter Note 03/09 Tried to leave VM but unable to [facility] 03-09-2024 Miscellaneous Notes 03/09 Tried to leave VM but unable to documented in this encounter [facility] 03-08-2024 Telephone encounter Note 03/08 Unable to leave message to call back to schedule appointment [facility] 03-08-2024 Miscellaneous Notes 03/08 Unable to leave message to call back to schedule appointment documented in this encounter [facility] 03-06-2024 Note Patient Education Oncology Cancer Screening for Males [...] if anything looks unusual. Males with a hmuxpy-rqsv-bdzvxz risk for skin cancer may want to see a gizzard skin remover (dermatologi (more content not included)... [facility] 03-06-2024 Telephone encounter Note Unable to leave VM will try again later [facility] 03-06-2024 Miscellaneous Notes Unable to leave VM will try again later documented in this encounter [facility] 03-02-2024 Procedure note [facility] 03-02-2024 History and physi etta note [facility] enter 01-30-2024 Note Patient Education Urology Cystoscopy Cystoscopy is a [...] including vitamins, herbs, eye drops, creams, and cwtv-ahm-adaqsak medicines. ??? Any problems you or family [...] tells you to take them. ??? Taking nmpo-uvr-tcongux medicines, vitamins, herbs, and supplements. Tests You [...] these instructions at home: Medicines ??? Take vtbm-mlh-qitmvul and prescription medicines only as told by [...] was removed for testing (biopsy) during your (more content not included)... [facility] 12-19-2023 Evaluation note Diagnosis Onset Date Resolution Diarrhea acute December 19, 2023 11:06am Hypertension acute December 11:06am IFG (impaired fasting glucose) acute December 18 024 11:06am Lumbar spondylosis acute Novemb er 2023 11:06am Prostate CA acute December 11:06am Weight loss acute December 11:06am [facility] Work Phone: 1(571) 996-554607-08-2024 NotePatient Education Oncology Hormone Suppression Therapy for Prostate [...] receptor antagonists, block areas on the body whereandrogens attach. These are pills that are usually used in combination with other types of hormone suppression therapy, like orchiectomy and other medicines. 3. Blocking androgen production throughout the body. ? Androgen synthesis inhibitor medicines. These medicines help to stop other areas of the body frommaking androgens. They are taken as pills. They [...] suppression therapy is having additional treatment options. Youmay have only one type of treatment, or two or more types at the same time. Treatments may be combined to: ? Help with side effects. ? Treat advanced cancer. Where to find more information ? [place] [employer]: www.cancer.org ? National Cancer [place]: www.cancer.gov Contact a health care provider if: [...] understanding speech. These symptom (more content not included)...[facility] 02-09-2023 Evaluation note* Encounter Date Diagnosis Assessment Notes Treatment Notes Treatment Clinical Notes Feb, Closed nondisplaced transverse fracture of [...] continue exercise to achieve/maintain a normal BMI. Feb, Benign prostatic hyperplasia [...] suppressed Instructed on continuing ADT and f/u [employer] Other 12-26-2023 Progress note Author Marc Mckinney [facility] February 01, 2023 2:59pm Note Date/Time February 01, 2023 2:59pm [facility] [address] [place] [address] Physiatry(Rehab) Progress Note Signed Patient: Park Guidry MR#: Katia [id number] : 1940 Acct:[id number] Age/Sex: 82 / M Adm Date: 3 Loc: Room: [address] [place] [address] Type: ADM IN Attending Dr: Marc Mckinney MD Copies to: ~ Date of Service: 02/01/2023 Subjective Subjective Narrative: Mr. Guidry is a 82 year old male with PMH of prostate cancer and hypertension, presenting to acute inpatient rehabilitation with functional impairments secondary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
== END 2024-07-16 13:06 | disposition home or self-care (01) ==
LOC: LAB 07-22 14:23
PROVIDERS: PCP Internal Medicine; Visit Provider Urology
DX: C61 Malignant neoplasm of prostate (principal); R97.21 Rising PSA following treatment for malignant neoplasm of prostate
CPT/HCPCS: 36415; 84153

== ENCOUNTER 2024-09-20 13:58 | Outpatient (OUT) | payer MEDICARE, SELFPAY ==
--- OUTSIDE RECORDS SUMMARY | 2024-09-20 14:08 | XMS_ITS | CCD ---
Author Organization [facility]iniSyne Care Team Providers Care Flight Line Service Attendant Name Role Phone SHAUN, DR HUSAIN Primary [...] Unavailable DO Alpesh Dunn Primary Care Provider [phone] MD Marc Mckinney Admit Provider MD Marc [...] Other Provider MD Daniel Carnes Other Provider MD Flower [...] Other Provider DO Fausto Wyatt Other Provider [phone] MD Yuko Tavera Other Provider SONAM Padilla Other Provider SONAM Brambila Other Provider MD Katina Grimm Other Provider MD Anatoly Ortiz Other Provider SONAM Hope Other Provider DO Vlad Smalls Other Provider LAQUITA Flood Other Provider Unavailable FLORIAN SANCHEZ Referring Unavailable FLORIAN SANCHEZ Referring Unavailable FLORIAN SANCHEZ A Referring Unavailable Alpesh Dunn DO Primary Care Provider [phone] Lars Avelar MD Attending Provider Alpesh Dunn [...] 22, 2023 8:46am take 4 tablets by [facility] once daily enzalutamide (XTANDI) 40 mg tablet [...] 02, 2023 8:10am take 1 capsule by [facility] every twenty-four hours Tamsulosin HCl 0.4 [...] Episodic Other aftercare (2 sources) Other senior care (current) drug therapy; 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 ??? (more content not included)... Normal [facility] Urology Office/Clinic Noteon 07-20-2024 Urology Office/Clinic Note [...] <0.1 07/16/24 - <0.13 TRUS/bx 08/24/16 - Narvon 7 (4+3) x 1 core 9% of [...] suspicious findings. CT AP w con 01[place]27/24 [facility] [place] Unremarkable [place]. Prostate seeds present. 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 See above for cysto findings. Reports he has seen the appropriate provider and declined surgery. Follow-up With When Contact Information Luis GARCIA MD, URL [address] [place] [address]- Additional Instructions: 6 mos w/ PSA and [...] Insomnia Kn (more content not included)... Normal [facility] Comment on above: Result Comment: Elec tronically Signed By: Luis GARCIA MD\.br\Date and Time Signed: 07/20/24 10:40 EDT\.br\Electronically Co-Signed By: Janet Jasso\.br\Date and Time Co-Signed: 07/20/24 10:32 EDT CNOVon 05-09-2024 CNOV Office Visit (URFMOB ) -------- PARK GUIDRY ([id number]) 1940 M Date Time Provider Department 05/09/24 3:30 PM TODD CABALLERO URFMOB During your visit today, we recorded the following information about you: Blood pressure 146/82 Nikki Wallace RN 05/09/2024 9:00 PM Signed Post void residual done on patient with 0 cc residual volume remaining. notified. LAQUITA Ramirez Molly, MD 05/09/2024 9:00 PM Signed [facility] UROLOGY NEW PATIENT CLINIC NOTE SERVICE DATE: 05/09/2024 NAME: Park Guidry REFERRED BY: Donna Singh [address] [place] [address] [place] [id number] Consultation requested by Dr. 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 - enzalutamide (XTANDI) 40 mg tablet Take 160 mg by mouth once daily. - amLODIPine (NORVASC) 5 mg tabl (more content not included)... Normal [facility] Creatinine (Bld) [Mass/Vol]O rdered By: Lars Avelar on 04-03-2024 Creatinine [Mass/Vol] Whole blood creati nine measurement 0.6-1.3 [facility] Comment on above: ER/ESD physician is notified/shown all ISTAT results.Critical values may be confirmed by laboratory testing ifdeemed necessary by ER attending doctor. ISTAT XRay CREon 04-03-2024 Creatinine [Mass/Vol] 0.9 mg/dL Normal 0.6-1.3 [facility] Comment on above: Result Comment: ER/E SD physician is notified/shown all ISTAT results. Critical values may be confirmed by laboratory testing if deemed necessary by ER attending doctor. Performed By: #### I SCRE #### [address] ISTAT GFR >60.0 Normal [facility] Comment on above: Result Comment: PERF ORMED BY: [place] [address] PATHOLOGIST PROTECTIVE SIGNAL INSTALLER HELPER RADHA ZHENG M.D. Performed By: #### I SCRE #### [address] MR pelvis wo/w conon 025 MR pelvis wo/w con [facility] [place] [address] MRI Report Signed Patient: Park Guidry MR#: [id number] : 1940 Acct:[id number] Age/Sex: 83 / M ADM Date: 04/03/24 Loc: MR Room: Type: [facility] Attending Dr: Lars Avelar MD Copies [...] Kerns Jr., D.OMario04/03/2024 10:58 AM Dictation Location: [place] [address] Transcribed By: [facility] 04/03/24 1058 Dictated By: Jackson Kerns Jr, DO 04/03/24 1046 Signed By: 04/03/24 1058 Normal [facility] Magnetic resonance imaging r eportOrdered By: Jackson Kerns on 04-03-2024 Study report [facility] [place] [address] MRI Report Signed Patient: Park Guidry MR#: [id number] : 1940 Acct:[id number] Age/Sex: 83 / M ADM Date: 5 Loc: MR Room: Type: [facility] Attending Dr: Lars Avelar MD Copies [...] Kerns Jr., RamosOMario04/03/2024 10:58 AM Dictation Location: [place] [address] Transcribed By: [facility] 04/03/24 1058 Dictated By: Jackson Kerns Jr, DO 04/03/24 1046 Signed By: 04/03/24 1058 [facility] No Panel InformationOrdered By: Lars Avelar on 04-03-2024 Bedside Estimated GFR (eGFR) > 60.0 [facility] CNOVon 03-30-2024 CNOV Office Visit ([facility] ) -------- GRAVENHORST,PARK ([id number]) 1940 M Date Time Provider Department 03/30/24 2:40 PM DONNA SINGH [facility] During your visit today, we recorded the [...] for internal providers or letter via the [employer] for external providers. Chief Complaint: ulcer of anus and rectum History of Present Illness: Park Guidry is a 83 year old male presents today for evaluation of rectal ulcer. MRI scheduled for 04/03/24 at [facility] 01/27/24 - [facility] Scan on 03/05/2024 3:53 PM by Celia Garcia: [facility] CT Chest,Abdomen and Pelvis 01/27/24 Impression: Circumferential irregular wall thickening of the distal sigmoid colon and rectum likely corresponding with patient's history of rectal ulceration and suspicion for malignancy. No adjacent enlarged lymph nodes. No distal metastatic disease of the chest abdomen or pelvis Sigmoidoscopy 03/02/24 - Dr. Avelar Scan on 03/05/2024 3:50 PM by Celia Garcia: [facility] Sigmoidoscopy Notes 03/02/24 Rectum: Excavated ulcerated lesion in the rectum (4 cm), biopsied using jumbo biopsy Pathology 03/02/24 Scan on 03/22/2024 4:01 PM by Celia Garcia: [facility]- Pathology Report 03/02/24 - Ulcer with reactive stromal atypia, negative for carcinoma Colonoscopy 01/27/24 - Dr. Avelar Scan on 03/05/2024 3:51 PM by Celia Garcia: [facility] EGD AND Colonoscopy Report 01/27/24 Ascending colon: [...] exam reveals anterior divot consistent with ulcer Cushion Sewer present: Yes, Ximena Sheets Anoscopy could not be performed due to patient discomfort The sensitive examination was discussed with the Patient or Patient's Authorized Hrbp. As applicable, any other physician, advance practice provider, medical student, or other health professional student that will be observing or involved in the sensitive examination for educational or training purposes was discussed with the Patient or Authorized Hrbp. The Patient or Authorized Hrbp has agreed to proceed with the sensitive [...] not wa (more content not included)... Normal [facility] -------- PARK GUIDRY ([id number]) 1940 M Date Time Provider Department 03/22/24 DONNA SINGH [facility] During your visit today, we recorded the following information about you: Ilan Padilla RN 03/22/2024 10:47 AM Signed Called [facility] Oral Surgery Technician, Lamar Matthew, and told her I was [...] Encounter Status:Closed by ILAN PADILLA [facility] -------- PARK GUIDRY ([id number]) 1940 M Date Time Provider Department 03/09/24 DONNA SINGH [facility] During your visit today, we recorded the [...] Encounter Status:Closed by CELIA GARCIA on 03/09/24 [facility] CNPN Telephone ([facility]) -------- PARK GUIDRY ([id number]) 1940 M Date Time Provider Department 03/09/24 DONNA SINGH [facility] During your visit today, we recorded the [...] Encounter Status:Closed by CELIA GARCIA on 03/09/24 [facility] 03-08-2024 CNPN Telephone ([facility]) -------- PARK GUIDRY ([id number]) 1940 M Date Time Provider Department 03/08/24 DONNA SINGH [facility] During your visit today, we recorded the [...] Status:Closed by CELIA GARCIA on 03/08/24 Normal [facility] SURGICAL PATHOLOGY REFERENCE LAB CONSULTon 03-07-2024 CASE REPORT Normal [facility] Comment on above: Order Comment: Speci men Type: FORMALIN-FIXED PARAFFIN-EMBEDDED TISSUE SPECIMEN Ordering Facility: [facility] Address: [address] [place], [place] [address] [place] [id number] Result Comment: Surg ical Pathology Report Case: [id number] Authorizing Provider: Leyda Heaton MD Collected: 03/07/2024 02:35 PM Ordering Location: [facility] Received: 03/07/2024 02:34 PM [facility] Pathologist: Josephine Fritz MD Specimen: Block(s) and/or Slide(s), 3 SLIDES & 1 BLOCK ([id number]: A1) Performed By: #### L [id number] #### [facility] CLIA [id number] [address] [place] [address] [place] CLINICAL HISTORY CONSULT REQUESTED [facility] Comment on above: Order Comment: Speci men Type: FORMALIN-FIXED PARAFFIN-EMBEDDED TISSUE SPECIMEN Ordering Facility: [facility] Address: [address] [place], [place] [address] [address] Performed By: #### L [id number] #### [facility] CLIA [id number] [address] [place] [address] [place] DIAGNOSIS COMMENT Normal [facility] Comment on above: Order Comment: Speci men Type: FORMALIN-FIXED PARAFFIN-EMBEDDED TISSUE SPECIMEN Ordering Facility: [facility] Address: [address] [place], [place] [address] [place] [phone] Result Comment: Than k you for allowing [...] to contact the GI consultation service at [phone] with questions or if additional follow-up information becomes available. Performed By: #### L [id number] #### [facility] CLIA [id number] [address] [place] [address] FINAL DIAGNOSIS Normal [facility] Comment on above: Order Comment: Speci men Type: FORMALIN-FIXED PARAFFIN-EMBEDDED TISSUE SPECIMEN Ordering Facility: [facility] Address: [address] [place] [address] Result Comment: Rect al lesion, biopsy (A): - Ulcer with reactive stromal atypia, negative for carcinoma. Performed By: #### L [id number] #### [facility] CLIA [id number] [address] [place] [address] FINAL PERFORMING LAB Normal [facility] Comment on above: Order Comment: Speci men Type: FORMALIN-FIXED PARAFFIN-EMBEDDED TISSUE SPECIMEN Ordering Facility: [facility] Address: [address] [place] [address] [place] [address] Result Comment: Diag nostic interpretation performed at: [facility], [address] [place] [address] CLIA# [id number] Acquisition Lead: Prateek Nick MD Performed By: #### L [id number] #### [facility] CLIA [id number] [address] [place] [address] OF [facility] Ambulatory Visit Summaryon 0 03-06-2024 Ambulatory Visit Summary Ambulatory Visit Summary PRAK GUIDRY :1940 Visit Date:03/06/2024 Ambulatory Visit Instructions [...] Luis GARCIA MD Where: [facility] [address] [place] [address]- You Need to Schedule the Following Appointments Follow Up with Luis GARCIA MD, URL When: Where: [facility] [address], [place] [address]- Medications What How Much When Instructions Unchanged [...] improves the (more content not included)... Normal [facility] CNPZenaida 03-06-2024 CNPN Telephone ([facility]) -------- PARK GUIDRY ([id number]) 1940 M Date Time Provider Department 03/06/24 DONNA SINGH [facility] During your visit today, we recorded the [...] Encounter Status:Closed by CELIA GARCIA on 03/06/24 [facility] Urology Office/Clinic Noteon 03-06-2024 Urology Office/Clinic Note [...] -Will send updated records to GI at [facility]. 3. Rising PSA following treatment for malignant neoplasm of prostate (R97.21: Rising PSA following treatment for malignant neoplasm of prostate) PSA: 01/19/21 - 0.10 07/22/21 - 3.30 01/20/22 - 0.52 07/21/22 - 1.07 01/12/23 - <0.13 08/12/23 - <0.13 01/23/24 - <0.1 TRUS/bx 08/24/16 - Narvon 7 (4+3) x 1 core 9% of core involvement. Narvon 7 (3+4) x 1 core, 35% of [...] [address], [place] [address]- Additional Instructions: 07/20/24 for 6 m with [...] Elevate (more content not included)... Normal [facility] Comment on above: Result Comment: Elec tronically Signed By: Luis GARCIA MD\.br\Date and Time Signed: 03/06/24 15:33 EST\.br\Electronically Co-Signed By: Kristin Dennis\.br\Date and Time Co-Signed: 03/06/24 15:29 EST Maykel 03-02-2024 L ---- Specimen: [id number] Received: 03/02/24 Status: KATLYN Anderson Num: [id number] Spec Type: Surgical Subm Dr: Lars Avelar MD Tissues: A Colon Biopsy (RECTAL LESION BX) Procedures: HE/2, Gross/Micro L4, AE1-AE3 Age/ Patient Sex Location Account Attending Physician Park Guidry/M [id number] Lars Avelar MD SPEC NUM: [id number] RECD: 03/02/24 STATUS: KATLYN ANDERSON NUM: [id number] JONI: 03/02/[address] [facility] [address]: Lars Avelar MD ENTERED: 03/02/[address] [facility] [address]: DYLAN TYPE: Surgical DEPT: S [...] [id number] Received: 03/02/24 Status: KATLYN Anderson Num: [id number] Spec Type: Surgical Subm Dr: Lars Avelar MD Tissues: A Colon Biopsy (RECTAL LESION BX) Procedures: HE/2, Gross/Micro L4, AE1-AE3 Patient: Park Guidry [id number] (Continued) Specimen: S2 Received: 03/02/24 (Continued) Signed (signature on file) Mei Luevano MD 03/08/24 1634 Specimen: [id number] Received: 03/02/24 Status: KATLYN Anderson Num: [id number] Spec Type: Surgical Subm Dr: Lras Avelar MD Tissues: A Colon Biopsy (RECTAL LESION BX) Procedures: HE/2, Gross/Micro L4, AE1-AE3 Patient: Park Guidry [id number] (Continued) Specimen: [id number] Received: 03/02/24 (Continued) Clinical Information Rectal ulcer Gross Description Part A is received in formalin labeled with the patients name, date of , and rectal lesion BX are 3 lucero-white, focally erythematous, friable, 0.2, 0.3 and 0.3 cm in greatest dimension tissue bits. The specimen is entirely submitted in a single cassette. (1, ns, [id number]) CPT Codes 18190 Specimen: [id number] Received: 03/02/24 Status: KATLYN Anderson Num: [id number] Spec Type: Surgical Subm Dr: Lars Avelar MD Tissues: A Colon Biopsy (RECTAL LESION BX) Procedures: HE/2, Gross/Micro L4, AE1-AE3 Patient: Park Guidry [id number] (Continued) Signed (signature on file) Mei Luevano MD 03/08/24 1634 Normal [facility] XR FEMUR RIGHT (MIN 2 [...] Florian Sanchez DO 02/05/24 Final result Normal [facility] Ambulatory Visit Summaryon 1 04-01-2023 Ambulatory Visit [...] [facility] [address] , [place] [phone] Medications What How Much When Instructions New ciprofloxacin (Cipro 500 mg Tab) 1 Tablets By Mouth Every day take one tab day before procedure and one tab after procedure Pickup at [facility] Unchanged enzalutamide (enzalutamide 40 [...] physician if questions or concerns Pharmacy Information [facility]: [address] [place], [place] [phone] Medications and Immunizations Administered Given Lupron Depot [...] the (more content not included)... Normal [facility] Urology Office/Clinic Noteon 01-30-2024 Urology Office/Clinic [...] x 1 core 9% of core involvement. Narvon 7 (3+4) x 1 core, 35% of [...] suspicious findings. CT AP w con 01/27/24 [facility] [place] Unremarkable [place]. Prostate seeds present. Irregular [...] [address], [place] [phone] Additional Instructi (more content not included)... Normal [facility] Comment on above: Result Comment: Elec tronically Signed By: Luis GARCIA MD\.br\Date and Time Signed: 01/30/24 10:58 EST\.br\Electronically Co-Signed By: Sarah Beth Greene\.br\Date and Time Co-Signed: 01/30/24 10:53 EST Blood Urea Nitrogenon 2023 Urea nitrogen [Mass/Vol] 20 mg/dL Normal 7-25 [facility] Comment on above: Performed By: #### C ROB ANDRADE #### [facility] [address] [place] [id number] [facility] CT abdomen pelvis w conon CT abdomen pelvis w con [facility] Main [place] [address] [place] [id number] [address] Scan Report Signed Patient: Park Guidry MR#: [id number] : 1940 Acct:[id number] Age/Sex: 83 / M ADM Date: 01/27/24 Loc: Room: Type: [facility] Attending Dr: Lars Avelar MD Copies to: Lars Avelar MD Ordering Provider: Lars Avelar MD Date of Service: 01/27/24 CT/CT chest w con: Giant rectal ulcer, 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 ([id number]) CT/CT abdomen pelvis w con: Giant rectal [...] Franky Green M.D.01/27/2024 2:46 PM Dictation Location: [place] [address] Transcribed By: [facility] 01/27/24 1446 Dictated By: Franky Green DO 01/27/24 1431 Signed By: 01/27/24 1446 Normal [facility] Creatinineon 01-27-2024 Creatinine [Mass/Vol] 0.97 mg/dL Normal 0.70-1.30 [facility] Comment on above: Performed By: #### C REAT BUN #### [address] Creatinine Clr Calc Pharmacy 53.87 Normal [facility] Comment on above: Result Comment: PERF ORMED BY: [place] [address] PATHOLOGIST PROTECTIVE SIGNAL INSTALLER HELPER RADHA ZHENG M.D. Performed By: #### C REAT BUN #### [place] [address] [place] GFR/1.73 sq M.predicted MDRD (S/P/Bld) [Vol rate/Area] mL/min/{1.73_m2} Normal [facility] Comment on above: Performed By: #### C REAT BUN #### [place] [address] [place] Creatinine [Mass/volume] in Serum or PlasmaOrdered By: Imad Asa on 01-27-2024 Creatinine [Mass/Vol] Creatinine [Mass/v olume] in Serum or Plasma 0.70-1.30 [facility] No Panel InformationOrdered By: Imad Asaad on 01-27-2024 Estimated GFR (CKD-EPI) > 60.0 mL/Min [facility] Creatinine Clearance (Chem 53.87 [facility] Miscellaneous Pathology Test See comment [facility] Comment on above: See report. Scanned copy available in EMR. Pathology Request for Lab Co rpon 01-27-2024 Pathology Request for Lab Mehrdad Normal [facility] Comment on above: Order Comment: PATHO LOGY GI SPECIMEN Result Comment: See report. Scanned copy available in EMR. PERFORMED BY: [place] [address] PATHOLOGIST PROTECTIVE SIGNAL INSTALLER HELPER RADHA ZHENG M.D. Performed By: #### P ATH TO [facility] #### [address] Urea nitrogen [Mass/volume] in Serum or PlasmaOrdered By: Imad Blaze on 01-27-2024 Urea nitrogen [Mass/Vol] Urea nitrogen [Mass/volume] in Serum or Plasma 08-31 [facility] No Panel Informationon 01-22 Free Prostate Specific Antigen <0.02 ng/mL N/A [facility] Comment on above: Tequila ECLIA methodol ogy. Prostate Specific Antigen Total <0.1 ng/mL 0.0-4.0 [facility] Comment on above: Tequila ECLIA methodol ogy.According to the [place] [employer], Serum PSAshould decrease and remain [...] prostate specific antigen (PSA)/total PSA ratio . [facility] Comment on above: Unable to calculate result [...] for any other population of men.Performed at: [facility] [id number] Director: Yoseph Cowan PhD, Phone: [phone] No Panel InformationOrdered By: Alpesh Dunn on 12-07-2023 E coli Shiga Toxin EIA [facility] Salmonella/Shigella Screen [facility] No Panel Informationon 12-06 Clostridium difficile (PCR)(LAB) Negative [facility] Miscellaneous Test Comment See comment [facility] Comment on above: Specimen Source: [facility] Stool - Stool - 700.100 Stool Campylobacter Culture Res 1 \R\ Campylobacter Culture\R\ No Campylobacter species isolated. [facility] Comment on above: [facility], XR FEMUR RIGHT [...] Florian Sanchez DO 11/14/23 Final result Normal [facility] Ambulatory Visit Summaryon 0 08-15-2023 [...] Follow-Up Appointments Tuesday 11:30 AM EDT Where: [facility] Tuesday 11:30 AM EDT [facility]: [facility] Physical Tx Tuesday 10:00 AM EDT [facility] [place] Physical Tx 2023 11:30 AM EDT [facility]: [facility] [place] Physical Tx Tuesday 11:30 AM EDT [facility]: [facility] [place] Physical Tx 2023 10:45 AM EDT [facility]: [facility] [place] Physical Tx Tuesday 11:15 AM EDT [facility]: [facility] [place] Physical Tx You Need to Schedule the Following Appointments Follow Up with JOSE LYNN, GLORIA Brooks When: Comments: 6 mos w/ PSA and Lupron Where: [facility] [address], [place] [phone] Medications What How Much When Instructions Unchanged [...] body a (more content not included)... Normal [facility] Urology Office/Clinic Noteon 08-15-2023 Urology Office/Clinic Note [...] [address], [place] [phone] Additional Instructions: 6 mos w/ PSA and [...] knee. M (more content not included)... Normal [facility] Comment on above: Result Comment: Elec tronically Signed By: uLis GARCIA MD\.br\Date and Time Signed: 08/15/23 10:34 [...] would like to keep activity light. Normal [facility] PT - Otheron 07-29-2023 PT - Other Pt called to inform PT that he is scheduled to see Dr Mckeon next Tuesday for a consult for his continued right hip pain. Normal [facility] Nonvisit Note - PTon 024 Nonvisit Note [...] if this helps his pain reports. Normal [facility] Glucose Glucometer (BldC) [M ass/Vol]Ordered By: Marc Mckinney on 02-02-2023 Glucose [Mass/Vol] 115 mg/dL [facility] Comment on above: Random Glucose Refer ence Range is dependent on time and content of last meal. Glucose of more than 200 mg/dL in a nonstressed, ambulatory subject supports the diagnosis of Diabetes Mellitus. Basophils Auto (Bld) [#/Vol] Ordered By: Ashlyn Donato on 01-29-2023 Basophils (Bld) [#/Vol] 0.1 10*3/uL 0.0-0.2 [facility] Basophils/100 WBC Auto (Bld) Ordered By: Ashlyn Donato on 01-29-2023 Basophils/100 WBC (Bld) 1.2 % . [facility] Calcium [Mass/volume] in Ser um or PlasmaOrdered By: Ashlyn Donato on 01-29-2023 Calcium [Mass/Vol] 8.5 mg/dL 8.6-10.3 [facility] Carbon dioxide, total [Moles /volume] in Serum or PlasmaOrdered By: Ashlyn Donato on 01-29-2023 CO2 [Moles/Vol] 23.3 mmol/L 21.0-31.0 [facility] Chloride [Moles/volume] in S edith or PlasmaOrdered By: Ashlyn Donato on 01-29-2023 Chloride [Moles/Vol] 105 mmol/L 98-107 [facility] Creatinine [Mass/volume] in Serum or PlasmaOrdered By: Ashlyn Donato on 01-29-2023 Creatinine [Mass/Vol] 0.71 mg/dL 0.70-1.30 [facility] Eosinophils Auto (Bld) [#/Vo l]Ordered By: Ashlyn Donato on 01-29-2023 Eosinophils (Bld) [#/Vol] 0.4 10*3/uL 0.0-0.45 [facility] Eosinophils/100 WBC Auto (Bl d)Ordered By: Ashlyn Donato on 01-29-2023 Eosinophils/100 WBC (Bld) 3.8 % . [facility] Erythrocyte distribution wid th Auto (RBC) [Ratio]Ordered By: Ashlyn Donato on 01-29-2023 Erythrocyte distribution width (RBC) [Ratio] 14.0 % 12.0-14.8 [facility] Glucose [Mass/volume] in Ser um or PlasmaOrdered By: Ashlyn Donato on 01-29-2023 Glucose [Mass/Vol] 102 mg/dL 70-100 [facility] Comment on above: ADA recommended refe rence rangeRandom Glucose Reference Range is dependent on time and content of last meal. Glucose of more than 200 mg/dL in a nonstressed, ambulatory subject supports the diagnosis of Diabetes Mellitus. Hematocrit Auto (Bld) [Volum e fraction]Ordered By: Ashlyn Donato on 01-29-2023 Hematocrit (Bld) [Volume fraction] 30.8 % 38.8-50.0 [facility] Hemoglobin [Mass/volume] in BloodOrdered By: Ashlyn Donato on 01-29-2023 Hemoglobin (Bld) [Mass/Vol] 10.2 g/dL 13.0-17.0 [facility] Leukocytes [#/volume] correc portia for nucleated erythrocytes in Blood by Automated counOrdered By: Ashlyn Donato on 01-29-2023 WBC corrected for nucl RBC Auto (Bld) [#/Vol] 10.3 10*3/uL 4.1-10.5 [facility] Lymphocytes Auto (Bld) [#/Vo l]Ordered By: Ashlyn Donato on 01-29-2023 Lymphocytes (Bld) [#/Vol] 1.0 10*3/uL 1.00-4.8 [facility] Lymphocytes/100 WBC Auto (Bl d)Ordered By: Ashlyn Donato on 01-29-2023 Lymphocytes/100 WBC (Bld) 9.9 % . [facility] MCH Auto (RBC) [Entitic mass ]Ordered By: Ashlyn Donato on 01-29-2023 MCH (RBC) [Entitic mass] 30.0 pg 27.5-35.2 [facility] MCHC Auto (RBC) [Mass/Vol]Or dered By: Ashlyn Donato on 01-29-2023 MCHC (RBC) [Mass/Vol] 33.2 g/dL 32.5-35.6 [facility] MCV Auto (RBC) [Entitic vol] Ordered By: Ashlyn Donato on 01-29-2023 MCV (RBC) [Entitic vol] 90.4 fL 83.5-101 [facility] Monocytes Auto (Bld) [#/Vol] Ordered By: Ashlyn Donato on 01-29-2023 Monocytes (Bld) [#/Vol] 1.1 10*3/uL 0.0-0.8 [facility] Monocytes/100 WBC Auto (Bld) Ordered By: Ashlyn Donato on 01-29-2023 Monocytes/100 WBC (Bld) 10.6 % . [facility] Neutrophils Auto (Bld) [#/Vo l]Ordered By: Ashlyn Donato on 01-29-2023 Neutrophils (Bld) [#/Vol] 7.7 10*3/uL 1.8-7.7 [facility] Neutrophils/100 WBC Auto (Bl d)Ordered By: Ashlyn Donato on 01-29-2023 Neutrophils/100 WBC (Bld) 74.5 % . [facility] No Panel InformationOrdered By: Ashlyn Donato on 01-29-2023 Estimated GFR (CKD-EPI) > 60.0 mL/Min [facility] Creatinine Clearance (Chem 73.17 [facility] Nucleated erythrocytes [Pres ence] in Blood by Automated countOrdered By: Ashlyn Donato on 01-29-2023 Nucleated RBC Auto Ql (Bld) 0.1 /100{WBC} 0-0.5 [facility] Platelet mean volume Auto (B ld) [Entitic vol]Ordered By: Ashlyn Donato on 01-29-2023 Platelet mean volume (Bld) [Entitic vol] 9.0 fL 6.6-10.1 [facility] Platelets Auto (Bld) [#/Vol] Ordered By: Ashlyn Donato on 01-29-2023 Platelets (Bld) [#/Vol] 353 10*3/uL 150-450 [facility] Potassium [Moles/volume] in Serum or PlasmaOrdered By: Ashlyn Donato on 01-29-2023 Potassium [Moles/Vol] 4.2 mmol/L 3.5-5.1 [facility] RBC Auto (Bld) [#/Vol]Ordere d By: Ashlyn Donato on 01-29-2023 RBC (Bld) [#/Vol] 3.41 10*6/uL 3.90-5.60 [facility] Serum or plasma anion gap de terminationOrdered By: Ashlyn Donato on 01-29-2023 Anion gap [Moles/Vol] 13.9 mmol/L 6.0-15.0 [facility] Sodium [Moles/volume] in Ser um or PlasmaOrdered By: Ashlyn Donato on 01-29-2023 Sodium [Moles/Vol] 138 mmol/L 136-145 [facility] Urea nitrogen [Mass/volume] in Serum or PlasmaOrdered By: Ashlyn Donato on 01-29-2023 Urea nitrogen [Mass/Vol] 22 mg/dL 7-25 [facility] WBC Auto (Bld) [#/Vol]Ordere d By: Ashlyn Donato on 01-29-2023 WBC (Bld) [#/Vol] 10.3 10*3/uL 4.1-10.5 [facility] Glucose mean value [Mass/vol ume] in Blood Estimated from glycated hemoglobinOrdered By: Ashlyn Donato on 01-25-2023 Average glucose Estimated from glycated hemoglobin (Bld) [Mass/Vol] 134 mg/dL [facility] Hemoglobin A1c percentageOrd ered By: Ashlyn Donato on 01-25-2023 HbA1c (Bld) [Mass fraction] 6.3 % 4.3-5.6 [facility] Comment on above: Increased risk for d iabetes: 5.7 - 6.4diabetes: >6.4glycemic control for adults with diabetes: <7.0 Alanine aminotransferase [En zymatic activity/volume] in Serum or PlasmaOrdered By: Marc Mckinney on 01-20-2023 ALT [Catalytic activity/Vol] 4 U/L 7-52 [facility] Albumin [Mass/volume] in Ser um or Plasma by Bromocresol green (BCG) dye binding methoOrdered By: Marc Mckinney on 01-20-2023 Albumin BCG dye [Mass/Vol] 3.0 g/dL 3.5-5.7 [facility] Alkaline phosphatase [Enzyma tic activity/volume] in Serum or PlasmaOrdered By: Marc Mckinney on 01-20-2023 ALP [Catalytic activity/Vol] 64 U/L 34-104 [facility] Aspartate aminotransferase [ Enzymatic activity/volume] in Serum or PlasmaOrdered By: Marc Mckinney on 01-20-2023 AST [Catalytic activity/Vol] 12 U/L 13-39 [facility] Bilirubin.total [Mass/volume ] in Serum or PlasmaOrdered By: Marc Mckinney on 01-20-2023 Bilirubin [Mass/Vol] 0.8 mg/dL 0.3-1.0 [facility] Globulin Calc (S) [Mass/Vol] Ordered By: Marc Mckinney on 01-20-2023 Globulin (S) [Mass/Vol] 2.9 g/dL [facility] Prealbumin [Mass/volume] in Serum or PlasmaOrdered By: Marc Mckinney on 01-20-2023 Prealbumin [Mass/Vol] 8.4 mg/dL 17.0-34.0 [facility] [place] Protein [Mass/volume] in Ser um or PlasmaOrdered By: Marc Mckinney on 01-20-2023 Protein [Mass/Vol] 5.9 g/dL 6.4-8.9 [facility] Serum or plasma albumin/glob ulin mass ratioOrdered By: Marc Mckinney on 01-20-2023 Albumin/Globulin [Mass ratio] 1.0 {ratio} [facility] TESTOSTERONE, TOTALon 2021 Testosterone [Mass/Vol] ng/dL Critically low 264-916 [facility] Comment on above: Result Comment: Adul t male reference interval is based on a population of healthy nonobese males (BMI <30) between 19 and 39 years old. Mars, et.al. JCEM 2017,102;8572-2978. PMID: [id number]. Performed By: #### T ESTTOT #### [facility] [address] [place] [address] Dr. Adrianna Luevano US REX DOP LEG [...] by: DANDY SANCHEZ Date: 2021-08-11 17:55 Normal [facility] CBC AUTO DIFFon 07-22-2021 BASO # 0.0 103/ul Normal 0.0-0.1 [facility] Comment on above: Performed By: #### C BC #### [facility] [address] [place] [address] Dr. Adrianna Luevano Basophils/100 WBC (Bld) 0.5 % Normal 0.2-2.0 [facility] Comment on above: Performed By: #### C BC #### [facility] [address] [place] [address] Dr. Adrianna Luevano EO # 0.5 103/ul Normal 0.0-0.7 [facility] Comment on above: Performed By: #### C BC #### [facility] [address] [place] [address] Dr. Adrianna Luevano Eosinophils/100 WBC (Bld) 6.2 % Normal 0.9-7.0 [facility] Comment on above: Performed By: #### C BC #### [facility] [address] [place] [address] Dr. Adrianna Luevano Erythrocyte distribution width (RBC) [Ratio] 13.6 % Normal 11.0-15.0 [facility] Comment on above: Performed By: #### C BC #### [facility] [address] [place] [address] Dr. Adrianna Luevano Hematocrit (Bld) [Volume fraction] 45.9 % Normal 42.0-54.0 [facility] Comment on above: Performed By: #### C BC #### [facility] [address] [place] [address] Dr. Adrianna Luevano Hemoglobin (Bld) [Mass/Vol] 15.2 g/dL Normal 14.0-18.0 [facility] Comment on above: Performed By: #### C BC #### [facility] [address] [place] [address] Dr. Adrianna Luevano IG # 0.04 10e3/ul Critically high 0.00-0.03 [facility] Comment on above: Performed By: #### C BC #### [facility] [address] [place] [address] Dr. Adrianna Luevano IG % 0.5 % Normal 0.0-0.5 [facility] Comment on above: Performed By: #### C BC #### [facility] [address] [address] [address] Adrianna Luevano LYMPH # 1.2 103/ul Normal 1.2-3.8 [facility] Comment on above: Performed By: #### C BC #### [facility] [address] [place] [address] Dr. Adrianna Luevano Lymphocytes/100 WBC (Bld) 13.7 % Critically low 20.5-60.0 [facility] Comment on above: Performed By: #### C BC #### [facility] [address] [place] [address] Dr. Adrianna Luevano MANUAL DIFF REQ NO Normal [facility] Comment on above: Performed By: #### C BC #### [facility] [address] [place] [address] Dr. Adrianna Luevano MCH (RBC) [Entitic mass] 29.9 pg Normal 25.9-34.0 [facility] Comment on above: Performed By: #### C BC #### [facility] [address] [place] [address] Dr. Adrianna Luevano MCHC (RBC) [Mass/Vol] 33.1 g/dL Normal 29.9-35.2 [facility] Comment on above: Performed By: #### C BC #### [facility] [address] [place] [address] Dr. Adrianna Luevano MCV (RBC) [Entitic vol] 90.4 fL Normal 80.0-94.0 [facility] Comment on above: Performed By: #### C BC #### [facility] [address] [place] [address] Dr. Adrianna Luevano MONO # 1.1 103/ul Critically high 0.3-0.8 [facility] Comment on above: Performed By: #### C BC #### [facility] [address] [place] [address] Dr. Adrianna Luevano Monocytes/100 WBC (Bld) 12.6 % Critically high 1.7-12. 0 [facility] Comment on above: Performed By: #### C BC #### [facility] [address] [place] [address] Dr. Adrianna Luevano NEUT # 5.7 103/ul Normal 1.4-6.5 [facility] Comment on above: Performed By: #### C BC #### [facility] [address] [place] [address] Dr. Adrianna Luevano Neutrophils/100 WBC (Bld) 66.5 % Normal 43.0-75.0 [facility] Comment on above: Performed By: #### C BC #### [facility] [address] [place] [address] Dr. Adrianna Luevano Platelet mean volume (Bld) [Entitic vol] 11.3 fL Normal 9.5-13.5 [facility] Comment on above: Performed By: #### C BC #### [facility] [address] [place] [address] Dr. Adrianna Luevano PLT 183 103/ul Normal 150-450 [facility] Comment on above: Performed By: #### C BC #### [facility] [address] [place] [address] Dr. Adrianna Luevano RBC 5.08 106/ul Normal 4.70-6.10 [facility] Comment on above: Performed By: #### C BC #### [facility] [address] [place] [address] Dr. Adrianna Luevano WBC 8.6 103/ul Normal 4.0-11.0 [facility] Comment on above: Performed By: #### C BC #### [facility] [address] [place] [address] Dr. Adrianna Luevano PROF CHEM 8 (BAS METB)on Anion gap [Moles/Vol] 13.4 mmol/L Normal [facility] Comment on above: Performed By: #### B MP #### [facility] [address] [place] [address] Dr. Adrianna Luevano Calcium [Mass/Vol] 8.9 mg/dL Normal 8.5-10.1 [facility] Comment on above: Performed By: #### B MP #### [facility] [address] [place] [address] Dr. Adrianna Luevano Chloride [Moles/Vol] 106 mmol/L Normal 98-107 [facility] Comment on above: Performed By: #### B MP #### [facility] [address] [address] [address] Adrianna Luevano CO2 [Moles/Vol] 23.1 mmol/L Normal 21.0-32.0 [facility] Comment on above: Performed By: #### B MP #### [facility] [address] [address] [address] Adrianna Luevano Creatinine [Mass/Vol] 0.87 mg/dL Normal 0.70-1.30 [facility] Comment on above: Performed By: #### B MP #### [facility] [address] [place] [address] Dr. Adrianna Luevano EGFR-AF CYMRO >60 Normal >=60 [facility] Comment on above: Performed By: #### B MP #### [facility] [address] [address] [address] Adrianna Luevano EGFR-NON AF CYMRO >60 Normal >=60 [facility] Comment on above: Performed By: #### B MP #### [facility] [address] [address] [address] Adrianna Luevano Glucose [Mass/Vol] 104 mg/dL Normal 74-106 [facility] Comment on above: Performed By: #### B MP #### [facility] [address] [address] [address] Adrianna Luevano Potassium [Moles/Vol] 4.5 mmol/L Normal 3.5-5.1 [facility] Comment on above: Performed By: #### B MP #### [facility] [address] [address] [address] Adrianna Luevano Sodium [Moles/Vol] 138 mmol/L Normal 136-145 [facility] Comment on above: Performed By: #### B MP #### [facility] [address] [address] [address] Adrianna Luevano Urea nitrogen [Mass/Vol] 22.0 mg/dL Critically high 7.0-18.0 [facility] Comment on above: Performed By: #### B MP #### [facility] [address] [place], [place] [address] Dr. Adrianna Luevano Urea nitrogen/Creatinine [Mass ratio] 25.3 mg/mg Normal [facility] Comment on above: Performed By: #### B MP #### [facility] [address] [place], [place] [address] Dr. Adrianna Luevano XR CHEST 2 Von [...] by: DANDY SANCHEZ Date: 2021-05-20 15:58 Normal [facility] Vital Signs Date Time Vital Sign Value Performing Clinician Facility 05-09-2024 16:02-0400 Diastolic blood pressure 82 mm[Hg] Todd Caballero MD Work Phone: [facility] 05-09-2024 16:02-0400 Systolic blood pressure 146 mm[Hg] Todd Caballero MD Work Phone: [facility] 04-03-2024 07:24-0500 Body height 165.1 cm Alpesh Ball DO Work Phone: [facility] 04-03-2024 07:24-0500 Body weight 81.64 kg Alpesh Ball DO Work Phone: [facility] 03-30-2024 14:33-0500 Body temperature 97.81 [degF] Donna Singh MD Work Phone: [facility] 03-30-2024 14:33-0500 Diastolic blood pressure 92 mm[Hg] Donna Singh MD Work Phone: [facility] 03-30-2024 14:33-0500 Heart rate 83 /min Donna Singh MD Work Phone: [facility] 03-30-2024 14:33-0500 SaO2% (BldA) [Mass fraction] 97 % Donna Singh MD Work Phone: [facility] 03-30-2024 14:33-0500 Systolic blood pressure 151 mm[Hg] Donna Singh MD Work Phone: [facility] 03-02-2024 09:30-0500 Diastolic blood pressure 84 mm[Hg] Alpesh Ball DO Work Phone: [facility] 03-02-2024 09:30-0500 Heart rate 74 /min Alpesh Ball DO Work Phone: [facility] 03-02-2024 09:30-0500 Respiratory rate 16 /min Alpesh Ball DO Work Phone: [facility] 03-02-2024 09:30-0500 SaO2% (BldA) [Mass fraction] 98 % Alpesh Ball DO Work Phone: [facility] 03-02-2024 09:30-0500 Systolic blood pressure 137 mm[Hg] Alpesh Ball DO Work Phone: [facility] 03-02-2024 07:35-0500 Body height 170.18 cm Alpesh Ball DO Work Phone: [facility] 03-02-2024 07:35-0500 Body weight 80.73 kg Alpesh Ball DO Work Phone: [facility] 01-27-2024 13:36-0500 Diastolic blood pressure 72 mm[Hg] Alpesh Ball DO Work Phone: [facility] 01-27-2024 13:36-0500 Heart rate 80 /min Alpesh Ball DO Work Phone: [facility] 01-27-2024 13:36-0500 Respiratory rate 16 /min Alpesh Ball DO Work Phone: [facility] 01-27-2024 13:36-0500 SaO2% (BldA) [Mass fraction] 95 % Alpesh Ball DO Work Phone: [facility] 01-27-2024 13:36-0500 Systolic blood pressure 117 mm[Hg] Alpesh Ball DO Work Phone: [facility] 01-27-2024 11:20-0500 Body height 172.72 cm Alpesh Ball DO Work Phone: [facility] 01-27-2024 11:20-0500 Body weight 81.64 kg Alpesh Ball DO Work Phone: [facility] 12-19-2023 11:30-0500 Body height 170.18 cm Lapesh Ball DO Work Phone: [facility] 12-19-2023 11:30-0500 Body mass index (BMI) [Ratio] 28.1 kg/m2 Alpesh Ball DO Work Phone: [facility] 12-19-2023 11:30-0500 Body weight 81.64 kg Alpesh Ball DO Work Phone: [facility] 12-19-2023 11:30-0500 Diastolic blood pressure 99 mm[Hg] Alpesh Ball DO Work Phone: [facility] 12-19-2023 11:30-0500 Heart rate 83 /min Alpesh Ball DO Work Phone: [facility] 12-19-2023 11:30-0500 Respiratory rate 12 /min Alpesh Ball DO Work Phone: [facility] 12-19-2023 11:30-0500 Systolic blood pressure 162 mm[Hg] Alpesh Ball DO Work Phone: [facility] 02-09-2023 11:30-0500 Body height 170.18 cm Alpesh Ball Other [facility] [employer] Other 02-09-2023 11:30-0500 Body mass index (BMI) [Ratio] 30.48 kg/m2 Alpesh Ball Other [facility] [employer] Other 02-09-2023 11:30-0500 Body weight 88.27 kg Alpesh Ball Other [employer] Other 02-09-2023 11:30-0500 Diastolic blood pressure 74 mm[Hg] Alpesh Ball Other [employer] Other 02-09-2023 11:30-0500 Respiratory rate 16 /min Alpesh Ball Other [employer] Other 02-09-2023 11:30-0500 Systolic blood pressure 136 mm[Hg] Alpesh Ball Other [employer] Other 02-02-2023 08:31-0500 Body temperature 97.8 [degF] DO Alpesh Ball Work Phone: [facility] 02-02-2023 08:31-0500 Diastolic blood pressure 71 mm[Hg] DO Alpesh Ball Work Phone: [facility] 02-02-2023 08:31-0500 Heart rate 81 /min DO Alpesh Ball Work Phone: [facility] 02-02-2023 08:31-0500 Respiratory rate 17 /min DO Alpesh Ball Work Phone: [facility] 02-02-2023 08:31-0500 SaO2% (BldA) [Mass fraction] 96 % DO Alpesh Ball Work Phone: [facility] 02-02-2023 08:31-0500 Systolic blood pressure 132 mm[Hg] DO Alpesh Ball Work Phone: [facility] 02-02-2023 06:54-0500 Body height 170.18 cm DO Alpesh Ball Work Phone: [facility] 01-30-2023 05:44-0500 Body weight 90.5 kg DO Alpesh Ball Work Phone: [facility] 01-20-2023 16:00-0500 Inhaled oxygen flow rate 2 L/min DO Alpesh Ball Work Phone: [facility] 12-24-2022 09:00-0500 Body height 170.18 cm Alpesh Ball Other [facility] [employer] Other 12-24-2022 09:00-0500 Body mass index (BMI) [Ratio] 31.13 kg/m2 Alpesh Ball Other [employer] Other 12-24-2022 09:00-0500 Body weight 90.18 kg Alpesh Ball Other [employer] Other 12-24-2022 09:00-0500 Diastolic blood pressure 87 mm[Hg] Alpesh Ball Other [employer] Other 12-24-2022 09:00-0500 Respiratory rate 16 /min Alpesh Ball Other [employer] Other 12-24-2022 09:00-0500 Systolic blood pressure 132 mm[Hg] Alpesh Ball Other [employer] Other 11-24-2022 14:30-0400 Body height 170.18 cm Alpesh Ball Other [employer] Other 11-24-2022 14:30-0400 Body mass index (BMI) [Ratio] 31.04 kg/m2 Alpesh Ball Other [employer] Other 11-24-2022 14:30-0400 Body weight 89.9 kg Alpesh Ball Other [employer] Other 11-24-2022 14:30-0400 Diastolic blood pressure 87 mm[Hg] Alpesh Ball Other [employer] Other 11-24-2022 14:30-0400 Respiratory rate 16 /min Alpesh Ball Other [employer] Other 11-24-2022 14:30-0400 SaO2% (BldA) [Mass fraction] 97 % Alpesh Ball Other [employer] Other 11-24-2022 14:30-0400 Systolic blood pressure 137 mm[Hg] Alpesh Ball Other [employer] Other 06-23-2022 14:30-0400 Body height 170.18 cm Alpesh Ball Other [employer] Other 06-23-2022 14:30-0400 Body mass index (BMI) [Ratio] 32.14 kg/m2 Alpesh Ball Other [employer] Other 06-23-2022 14:30-0400 Body weight 93.08 kg Alpesh Ball Other [employer] Other 06-23-2022 14:30-0400 Diastolic blood pressure 81 mm[Hg] Alpesh Ball Other [employer] Other 06-23-2022 14:30-0400 Respiratory rate 16 /min Alpesh Ball Other [employer] Other 06-23-2022 14:30-0400 Systolic blood pressure 126 mm[Hg] Alpesh Ball Other [employer] Other Encounters Encounter Date Encounter Type Care Provider Facility Start: 01-11-2025 ambulatory Luis Meyer ty:[facility] Start: 07-20-2024 End: 07-20-2024 ambulatory Luis GARCIA Facility:[facility] Start: 05-09-2024 End: 05-09-2024 ambulatory DONNA SINGH Facility:[facility] Start: 05-09-2024 End: 05-09-2024 Patient encounter procedure Todd Caballero MD Work Phone: Urology Comment on above: Prostate cancer (HCC ) (Primary Dx); Rectourethral fistula; Adverse effect of radiation, sequela Start: 04-03-2024 End: 04-03-2024 Patient encounter procedure Alpesh Dunn DO Work Phone: [facility] Work Phone: Start: 04-03-2024 End: 04-03-2024 ambulatory Alpesh Dunn DO Work Phone: [facility] Work Phone: Start: 03-30-2024 End: 03-30-2024 ambulatory DONNA SINGH Facility:[facility] Start: 03-30-2024 End: 03-30-2024 Patient encounter procedure Donna Singh MD Work Phone: Colorectal Surgery Comment on above: Rectal lesion (Prima ry Dx); Rectourethral fistula; Anorectal ulcer Start: 03-22-2024 End: 03-22-2024 Telephone encounter Donna Singh MD Work Phone: Colorectal Surgery Start: 03-09-2024 End: 03-09-2024 Telephone encounter Donna Singh MD Work Phone: Colorectal Surgery Start: 03-08-2024 End: 03-08-2024 Telephone encounter Donna Singh MD Work Phone: Colorectal Surgery Comment on above: Appointment Start: 03-06-2024 End: 03-06-2024 Telephone encounter Donna Singh MD Work Phone: Colorectal Surgery Comment on above: Appointment Start: 03-06-2024 End: 03-06-2024 ambulatory Luis GARCIA Facility: [facility] Start: 03-02-2024 Non-patient / Non-visit Catia marshall Ball DO Work Phone: [facility] Work Phone: Start: 03-02-2024 End: 03-02-2024 Admission to same day surgery center Alpesh Ball DO Work Phone: [facility] Work Phone: Start: 03-02-2024 End: 03-02-2024 ambulatory Alpesh Ball DO Work Phone: [facility] Work Phone: Start: 01-30-2024 End: 01-30-2024 ambulatory Luis R GARCIA Facility:[facility] Start: 01-27-2024 Non-patient / Non-visit Benjam in Ball DO Work Phone: [facility] Physician [facility] Work Phone: Start: 01-27-2024 End: 01-27-2024 Admission to same day surgery center Alpesh Dunn DO Work Phone: [facility] Work Phone: Start: 01-27-2024 End: 01-27-2024 ambulatory Imad Asaad Facility:[facility] Start: 01-23-2024 Non-patient / Non-visit Benjam in Ball DO Work Phone: [facility] Physician [facility] Work Phone: Start: 12-19-2023 End: 12-19-2023 Patient encounter procedure Alpesh Ball DO Work Phone: [facility] Physician [facility] Work Phone: Start: 12-07-2023 Non-patient / Non-visit Benjam in Ball DO Work Phone: [facility] Physician [facility] Work Phone: Start: 08-15-2023 End: 08-15-2023 ambulatory Luis GARCIA Facility:[facility] Start: 08-02-2023 End: 08-02-2023 ambulatory FLORIAN Melita [facility] Start: 06-27-2023 End: 06-27-2023 ambulatory Alpesh Dunn Other [facility] Other Start: 06-27-2023 Telephone encounter Alpesh Dunn [facility] Start: 05-19-2023 End: 05-19-2023 ambulatory FLORIAN Melita [facility] Start: 03-08-2023 End: 03-08-2023 ambulatory FLORIAN A [facility] Start: 02-09-2023 End: 02-09-2023 ambulatory Alpesh Dunn Other [facility] Other Start: 02-09-2023 Transitional care johnny schmittalessio srvc 14 day discharge Alpesh Dunn [facility] Start: 02-03-2023 End: 02-03-2023 ambulatory Alpesh Dunn Other [facility] Other Start: 02-03-2023 Telephone encounter Alpesh Dunn [facility] Start: 01-20-2023 End: 01-20-2023 ambulatory Alpesh Dunn Other [facility] Other Start: 01-20-2023 Telephone encounter Alpesh Dunn [facility] Start: 01-19-2023 End: 02-02-2023 Evaluation and management of inpatient DO Alpesh Dunn Work Phone: [facility] Work Phone: Start: 12-24-2022 End: 12-24-2022 ambulatory Alpesh Dunn Other [facility] Other Start: 12-24-2022 Office outpatient vi sit 25 minutes Alpesh Shaun [facility] Start: 12-22-2022 End: 12-22-2022 ambulatory Alpesh Ball Other [facility] Other Start: 12-22-2022 Telephone encounter Alpesh Dunn [facility] Start: 11-24-2022 End: 11-24-2022 ambulatory Alpesh Shaun Other [facility] Other Start: 11-24-2022 Office outpatient vi sit 25 minutes Alpesh Dunn [facility] Start: 11-24-2022 Telephone encounter Alpesh [facility] Start: 07-22-2022 End: 07-22-2022 ambulatory Alpesh Dunn Other [facility] Other Start: 07-22-2022 Telephone encounter Alpesh Shaun [facility] Start: 06-23-2022 End: 06-23-2022 ambulatory Alpesh Dunn Other [facility] Other Start: 06-23-2022 Patient encounter procedure Alpesh Shaun [facility] Start: 01-20-2022 End: 01-21-[address] LUIS [...] on above: Performed By: #### PSAD #### [facility] [address] [place] [address] Dr. Adrianna Luevano Start: 07-22-[address] ALPESH DUNN Comment on above: Performed By: #### PSAD #### [facility] [id number] Adrianna Luevano Plan of Treatment Date Care Activity Detail Author Start: 12-17-2032 Urine microalbumin profile DTaP,Tdap,Td Vaccine (3 - Td or Tdap) [facility] Start: 01-19-2026 Diabetes Screening Diabetes Screenin g [facility] Start: 03-30-2024 End: 03-30-2024 Patient encounter procedure 03/30/2024 2:40 PM EST Office Visit Colorectal Surgery [facility] [address] [place] [address] Donna Singh MD [facility] [address] [id number] New Pt: Ulcer of Anus and rectum,Ref By: Dr. Shi Colorectal Surgery Comment on above: New Pt: Ulcer of Tamie s and rectum,Ref By: Dr. Shi Start: 03-02-2024 [facility] Start: 02-08-2024 Advance Directive Discussion Advance Directive Discussion [facility] Start: 01-30-2024 [facility] Start: 10-09-2023 Covid-19 Vaccine ( season) Covid-19 Vaccine ( season) [facility] Start: 10-09-2023 Covid-19 Vaccine ( season) Covid-19 Vaccine ( season) [facility] Start: 10-09-2023 Influenza vaccination Influenza Vacc ine (#1) [facility] Start: 02-02-2023 [facility] Start: 01-20-2023 Administration of prophylactic treatment [facility] Start: 01-19-2023 Hospital admission [facility] Start: 01-19-2023 Referral to clinical video tape duplicator [facility] Start: 2013 RSV Vaccine (1 - 1-d ose 75+ series) RSV Vaccine (1 - 1-dose 75+ series) [facility] Start: 1988 Pneumococcal Vaccine : 50+ (1 of 1 - PCV) Pneumococcal Vaccine: 50+ (1 of 1 - PCV) [facility] Start: 1988 Shingrix Vaccine (1 of 2) Darling grix Vaccine (1 of 2) [facility] Start: 05-29-1983 Diabetes Screening Diabetes Screenin g [facility] Start: 1957 Urine microalbumin profile DTaP,Tdap,Td Vaccine (1 - Tdap) [facility] Start: 1956 Anxiety Screening Anxiety Screening [facility] Start: 1956 Depression Screening Depression Scre ening [facility] CT Abdomen and Pelvi s W contrast IV [facility] Patient Education [facility] Work Phone: Patient referral [facility] Work Phone: [facility] Immunizations Immunization Date Immunization Notes Care Provider [facility] 01-14-2023 influenza virus vaccine, unspecified formulation Donna Singh MD Work Phone: [facility] 11-25-2021 influenza, high dose seasonal, preservative-free Alpesh Dunn Other [facility] Other 11-25-2021 influenza virus vaccine, unspecified formulation Alpesh Dunn DO Work Phone: [facility] 03-27-2020 COVID-19 Vaccine Pfi zer - Documentation Purposes Only Alpesh Dunn Other [facility] 03-04-2020 COVID-19 Vaccine Pfi zer - Documentation Purposes Only Alpesh Dunn Other [facility] 10-23-2019 pneumococcal polysaccharide vaccine, 23 valent Alpesh Dunn Other [facility] 12-10-2016 influenza virus vaccine, split virus (incl. purified surface antigen) Alpesh Dunn Other [employer] [facility] [employer] Other 12-10-2016 influenza virus vaccine, unspecified formulation Alpesh Dunn DO Work Phone: [facility] 12-03-2015 influenza virus vaccine, split virus (incl. purified surface antigen) Alpesh Dunn Other [facility] [employer] Other 12-03-2015 influenza virus vaccine, unspecified formulation Alpesh Dunn DO Work Phone: [facility] 12-01-2015 pneumococcal conjuga te vaccine, 13 valent Alpesh Dunn Other [facility] 06-26-2009 pneumococcal polysaccharide vaccine, 23 valent Alpesh Dunn Other [facility] Payers Date Payer Category Payer Unknown [id number] 2024 Self-pay [id number] 2016 Private Health Insurance [id number] 2003 Medicare [id number] 2003 Medicare [id number] 2003 Medicare [id number] 2003 Medicare [id number] 1959 Medicare [id number] 1959 Unknown [id number] 1938 Unknown [id number] 1938 Unknown [id number] [id number] 1938 Unknown [id number] [id number] 1938 Unknown [id number] [id number] 1938 Unknown [id number] [id number] 1938 Unknown [id number] 2.16.840.1.736188.3.579.2.175 1938 Unknown [id number] 2.16.840.1.937093.3.579.2.175 1938 Unknown [id number] 2.16.840.1.548240.3.579.2.175 1938 Unknown [id number]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 2024 End: April 03, 2024 Flight Line Service Attendant Relationship Specialty Start Date End Date Alpesh Dunn DO PCP - General Internal Medicine 09/10/16 Source Comments (unrecognize d section and content) In the event this informatio n is protected by the Federal Confidentiality of Alcohol and Drug Abuse Patient Records regulations: The Federal rules restrict any use of the information to criminally investigate or prosecute any alcohol or drug abuse patient.[facility] the event this information is protected by the Federal Confidentiality of Alcohol and Drug Abuse Patient Records regulations: The Federal rules restrict any use of the information to criminally investigate or prosecute any alcohol or drug abuse patient.[facility] NorthIn the event this information is protected by the Federal Confidentiality of Alcohol and Drug Abuse Patient Records regulations: The Federal rules restrict any use of the information to criminally investigate or prosecute any alcohol or drug abuse patient.[facility] NorthIn the event this information is protected by the Federal Confidentiality of Alcohol and Drug Abuse Patient Records regulations: The Federal rules restrict any use of the information to criminally investigate or prosecute any alcohol or drug abuse patient.[facility] NorthIn the event this information is protected by the Federal Confidentiality of Alcohol and Drug Abuse Patient Records regulations: The Federal rules restrict any use of the information to criminally investigate or prosecute any alcohol or drug abuse patient.[facility] NorthIn the event this information is protected by the Federal Confidentiality of Alcohol and Drug Abuse Patient Records regulations: The Federal rules restrict any use of the information to criminally investigate or prosecute any alcohol or drug abuse patient.[facility] NorthIn the event this information is protected by the Federal Confidentiality of Alcohol and Drug Abuse Patient Records regulations: The Federal rules restrict any use of the information to criminally investigate or prosecute any alcohol or drug abuse patient.[facility] FOR RECORDS PERTAINING TO PATIENTS WHO ARE [...] BE BASED ON THE PRIMARY CLINICAL RECORDS. [facility]. provides no warranty or guarantee of the accuracy or completeness of information in this document.
--- NOTE | 2024-09-20 15:19 | PM.WCHP ---
Wound Care H&P: HPI History of Present Illness Narrative: The patient is a pleasant 84-year-old gentleman who presents for routine nail care. The patient has recurrent ingrown toenails that require frequent debridement. No sign of infection at this time but he does report a lot of pain in the hallux toenails bilaterally for the past few weeks. Exam Narrative: Exam Narrative: Derm: Skin is diffusely dry, thin, and shiny. Toenails 1 through 10 are elongated, thickened, and mycotic. There is ingrowing of the medial and lateral nail borders of both great toes. No evidence of paronychia at this time. Vascular: The left DP pulse is 1/4. Right DP pulse is nonpalpable. The PT pulses are nonpalpable bilaterally. Capillary refill is less than 3 seconds bilaterally. Superficial varicosities are noted. There is nonpitting edema of both lower legs and ankles. Digital hair is absent bilaterally. Neuro: Protective sensation intact to 5/5 areas tested in each foot. Vibratory sensation is intact. Achilles deep tendon reflexes are 1+ bilaterally. MSK: chronic swelling of the right ankle with limited ROM and crepitus upon AROM. No gross deformity on the left. Strength WNL in all planes. Assessment and Plan Assessment and Plan (1) Ingrowing nail, left great toe: (2) Ingrowing nail, right great toe: (3) Tinea unguium: (4) Difficulty walking: (5) Gait instability: (6) Disorder of nail due to another disorder: Plan The patient is a pleasant 84-year-old gentleman with history of ambulatory dysfunction who presents for routine nail care. He gets recurrent ingrowing of the medial and lateral nail borders of both great toes. All nails were debrided without incident. The great toes were trimmed in a slant back fashion on both sides and nail folds were evacuated of foreign material. Follow-up in 2 months, sooner if any issues arise. Acute Procedures Podiatry Nail Debridement Class B Findings Absent posterior tibial pulse: bilateral Advanced trophic changes as evidenced by any three of the following: decreased hair growth, nail changes (thickening) and skin texture (thin or shiny) Absent dorsalis pedis pulse: left Class C Findings Claudication: No Temperature changes: No Edema: Yes Nail debridement paresthesia (abnormal spontaneous sensations in the feet): No Burning: No Qualifies If: Qualifiers If:: A patient qualifies for nail debridement if they have: 1 class A finding (Q7) 2 class B findings (Q8) OR 1 class B & 2 class C findings in addition to a primary condition (Q9) Nail Procedure Nail Procedure Time out: Yes Nail procedure: other (Nail debridement 1 through 10, slant back trimming to relieve ingrowing toenails to bilateral great toes) Number of affected nails: 10 Location (toes): left and right Procedure successful: Yes Patient tolerated procedure: well and no complications Additional comments: Toenails 1 through 10 were sharply debrided with nail nippers without incident. The medial and lateral corners of the great toenails were trimmed in a slant back fashion and debris was cleared from the nail folds bilaterally. He noted pain relief postprocedure.
== END 2024-09-20 13:59 | disposition home or self-care (01) ==
LOC: WC 13:59
PROVIDERS: PCP Internal Medicine; Visit Provider Physician Assistant
DX: B35.1 Tinea unguium (principal); L60.0 Ingrowing nail; R26.81 Unsteadiness on feet; L60.8 Other nail disorders
CPT/HCPCS: 11721

== ENCOUNTER 2024-11-29 13:21 | Outpatient (OUT) | payer MEDICARE, SELFPAY ==
--- OUTSIDE RECORDS SUMMARY | 2024-11-29 13:24 | XMS_ITS | Clinical Summary ---
Author Organization [facility] Address [address] [place] [address] Care Team Providers Care Brusher And Shearer Name Role Phone Unavailable Primary Care Provider Unavailabl e Social History Tobacco UseTypesPacks/DayYears UsedDateSmoking Tobacco: Never AssessedSex and Gender InformationValueDate RecordedSex Assigned at BirthNot on fileLegal Sex Male04/21/2022 7:07 PM EDTGender IdentityNot on fileSexual OrientationNot on file Last Filed Vital Signs Vital SignReadingTime TakenCommentsBlood Vkquehhd193/77042 12:00 PM EST Pulse--Temperature--Respiratory Rate--Oxygen Saturation--Inhaled Oxygen Concentration--Eywxsx61.5 kg (204 lb)03/19/2022 12:00 PM AABXrrtlz902.4 cm (5' 5.5 )03/19/2022 12:00 PM ESTBody Mass Index33.43003/19/2022 12:00 PM EST Plan of Treatment Not on file
--- OUTSIDE RECORDS SUMMARY | 2024-11-29 13:24 | XMS_ITS | Clinical Summary ---
Author Organization [facility] Address [address], [address] [place] [address] Care Team Providers Care Marketing Programs Manager Name Role Phone Unavailable Primary Care Provider Unavailabl e Allergies No known active allergies Medications MedicationSigDispense QuantityRefillsLast FilledStart DateEnd DateStatus amLODIPine (NORVASC) 5 MG tablet Take 1 tablet by mouth dailyActive tamsulosin (FLOMAX) 0.4 MG capsule Take 1 capsule by mouth 2 times dailyActive tolterodine (DETROL LA) 4 MG extended release capsule Take 1 capsule by mouth dailyActive enzalutamide (XTANDI) 40 MG capsule Take 1 capsule by mouth 4 times dailyActive aspirin 81 MG EC tablet Take 1 tablet by mouth in the morning and at bedtime 60 tablet 01/17/2023ctive vitamin D (ERGOCALCIFEROL) 1.25 MG (23810 UT) CAPS capsule Take 1 capsule by mouth once a week 8 capsule ctive enoxaparin Sodium (LOVENOX) 30 MG/0.3ML injection Inject 0.3 mLs into the skin 2 times daily01/19/2023ctive ibuprofen (ADVIL;MOTRIN) 400 MG tablet Take 1 tablet by mouth every 6 hours as needed for Pain01/19/2023ctive vitamin D (ERGOCALCIFEROL) 1.25 MG (85396 UT) CAPS capsule Take 1 capsule by mouth once a week for 8 doses 8 capsule 05/19/2023ctive diclofenac sodium (VOLTAREN) 1 % GEL Apply 4 g topically 4 times daily 150 g ctive Active Problems ProblemNoted DateDiagnosed DateClosed displaced transverse fracture of shaft of femur, initial bosawhwnu66/10/2023losed fracture of right femur12/11/2022 Social History Tobacco UseTypesPacks/DayYears UsedDateSmoking Tobacco: NeverSmokeless Tobacco: NeverAlcohol UseStandard Drinks/WeekCommentsNever0 (1 standard drink = 0.6 oz pure alcohol)Interpersonal Safety Domain Source: IP Abuse ScreeningAnswerDate RecordedRead-Only, Retired: Physical ZtqozWlmsea91/10/2023Read-Only, Retired: Verbal XxedpNsufdc20/10/2023Read-Only, Retired: Emotional hpjmcPgasor77/10/2023 Read-Only, Retired: Financial ZfztdCjyyqc24/10/2023Read-Only, Retired: Sexual lctclCzlglt62/10/2023Sex and Gender InformationValueDate RecordedSex Assigned at BirthNot on fileLegal CivUczw25/10/2023 11:29 AM ESTGender IdentityNot on file Sexual OrientationNot on file Last Filed Vital Signs Vital SignReadingTime TakenCommentsBlood Dtldvdoe110/7701/19/2023 7:37 AM EST Uofbf862901/19/2023 7:37 AM NNZZqhbujyoyry47.4 ??C (97.5 ??F)01/19/2023 7:37 AM ESTRespiratory Yfdb174103/22/2022 6:28 AM ESTOxygen Yaczswgkgd45%01/19/2023 7:37 AM ESTInhaled Oxygen Concentration--Caqbpw26.7 kg (189 lb)08/18/2023 11:12 AM NKJZxtxaw993.2 cm (5' 7 )08/18/2023 11:12 AM EDTBody Mass Index29.607 11:12 AM EDT Plan of Treatment Health MaintenanceDue DateLast DoneCommentsDepression Xntldp981Prostate Specific Antigen (PSA) Screening or Trnsbjazst78/21/1979Shingles vaccine (1 of 2)1988Respiratory Syncytial Virus (RSV) or age 60 yrs+ (1 - 1- dose 75+ series)2013COVID-19 Vaccine (3 - Pfizer risk series)04/24/2020 03/27/2020, 1Annual Wellness Visit (Medicare)01/16/2023Flu vaccine (#1) 512/09/2022, 11/25/2021, 12/10/2016, Additional history exists DTaP/Tdap/Td vaccine (3 - Td or Tdap)311/11/2022, 12/23/2020 Pneumococcal 50+ years OztssmzKiyjmmivs94/15/2020, 12/01/2015, 02/07/2015, Additional history existsHepatitis A vaccineAged OutNo longer eligible based on patient's age to complete this topicHepatitis B vaccineAged OutNo longer eligible based on patient's age to complete this topicHib vaccineAged OutNo longer eligible based on patient's age to complete this topicMeningococcal (ACWY) vaccineAged OutNo longer eligible based on patient's age to complete this topicMeningococcal B vaccineAged OutNo longer eligible based on patient's age to complete this topicPolio vaccineAged OutNo longer eligible based on patient's age to complete this topic Medical Devices ImplantedTypeAreaManufacturerDevice IdentifierShelf Expiration DateModel / Serial / LotNail Im L400mm [id number] R Fem Gtr Troch Entry Lt Grn Ti Ally - [id number] Implanted:Qty: 1 on 01/17/2023 [facility] FemurDEPUY SYNTHES [facility]-[id number] / / [id number] Bne Hip 6.5x105 Mm Recon Xl40 Recess Im Nail Ti Strl - [id number] Implanted:Qty: 1 on 01/17/2023 by [facility]: FemurDEPUY [employer] [id number] / / [id number] Bne Hip 6.5x115 Mm Recon Thrd Xl40 Strl Frnadvanced - [id number] Implanted:Qty: 1 on 01/17/2023 by Barron Hilliard DO at [facility]: FemurDEPUY [employer] [id number] / / [id number] Lck F/Im Nail 5x48mm Xl25 Str - [id number] Implanted:Qty: 1 on 01/17/2023 by [facility]: FemurDEPUY [employer] [facility]-[id number] / / [id number] Lck F/Im Nail 5x70mm Xl25 Str - [id number] Implanted:Qty: 1 on 01/17/2023 by [facility]: FemurDEPUY [employer] [facility]-[id number] / / [id number] Lk F/Im Nail 5x54mm Xl25 St - [id number] Implanted:Qty: 1 on 01/17/2023 by [facility] FemurDEPUY [employer] [facility]-[id number] / / [id number] Insurance Advance Directives * Full Code (Latest Code Status on File) Date ActivatedDate WxffsxddwlyQfkmfmpb19/10/2023 4:27 PM01/19/2023 6:10 PM NameRelationshipHealthcare Agent RelationshipCommunicationJudy GravenhorstChild Primary Decision Maker* [phone] (Hire Space)
--- OUTSIDE RECORDS SUMMARY | 2024-11-29 13:25 | XMS_ITS ---
Author Organization [facility] Address [address] [place], [place] [id number] Care Team Providers Care Parent Coach Name Role Phone Alpesh Hampton DO Primary Care Provider [phone] Active Problems ProblemNoted DateDiagnosed DateHistory of prostate nsvgbf9908/17/2017Prostate ttxxpl3409/29/2016 Current Treatment and Therapy Plans No current plan information found. Past Treatment and Therapy Plans No past plan information found. Treatment Summaries Prostate cancer (HCC)* Treatment Summary and Survivorship Care Plan for Prostate Cancer Provided by: Funmi Santos APRN.CNP General Information Patient Name: David Scanlon Patient : 1940 Patient phone: Email: [email or web address] [facility] Care Providers Primary Care Provider: Dr. Alpesh Hampton Urologic Surgeon: Dr. Jaguar Batres Radiation Oncologist: Dr. Alvarado Smith Other Providers: Funmi Santos APRN.CNP Treatmet Summary Diagnosis Cancer Type: Adenocarcinoma of the prostate Location: Right base, right lateral base Diagnosis Date (year): August 24, 2016 Histology Subtype: Prostate Cancer Stage:IIB P6oA4O2 Pj Score: (4+3) 7 PSA at Diagnosis: June 19, 2016- 35.73 Clinical Trial: No Treatment Completed Surgery: Yes Surgery Date(s) (year): August 24, 2016 Surgical procedure/location/findings:Transrectal ultrasound guided biopsy; right base and right lateral base; adenocarcinoma of the prostate External beam radiation: Yes Prostate/Pelvis: Yes: End Date (year): November 19, 2016 (October 18, 2016 through November 19, 2016) 4,500 cGy in 25 fractions Pd-103 - 52 seeds Brachytherapy to prostate: Yes: End Date (year): December 23, 2016 Systemic Therapy (chemotherapy, hormonal therapy, other): Yes Name of Agents Used: Lupron (or similar LHRH agonist): Completed. Had [address] Batres. Presistent symptoms or side effects at completion of treatment: Yes: Persistent discomfort to left leg hip/leg where Lupron was administered. Follow-up Care Plan Schedule of clinical visits Coordinating Provider When/How often Dr. Alvarado Smith Every 6 months x2 years, then once yearly. Dr. Jaguar Batres Per Dr. Batres Cancer surveillance or other recommended related tests Coordinating Provider Test How Often Dr. Alvarado Smith PSA (Prostate Specific Antigen) Every 6 months x2 years, then once yearly. Dr. Jaguar Batres PSA (Prostate Specific Antigen) Dr. Batres Please continue to see your primary care provider for all general health care recommended for a (man) (women) your age, including cancer screening tests. Any symptoms should be brought to the attention of your provider: 1. Anything that represents a brand new symptom; 2. Anything that represents a persistent symptom; 3. Anything you are worried about that might be related to the cancer coming back. Possible late- and long-term effects that someone with this type of cancer and treatment may experience: Decreased sex drive, Enlarging breast tissue, Erectile dysfunction, Fatigue, Hair Loss, Hot flashes, Incontinence, Increased body fat, Loss of muscle mass, Metabolic syndrome (increased blood pressure, blood sugar, cholesterol), Mood swings, Osteoporosis, Painful urination, Rectal pain, Shorten ing of the penis, Skin irritation or darkening, Sterility, Tirdness, Trouble voiding or passing urine (urinary retention) and Urinary frequency Cancer survivors may experience issues with the areas listed below. If you have any concerns in these or other areas, please speak with your doctors or nurses to find out how you can get help with them: anxiety or depression , emotional or mental health, fatigue, fertility, financial advice or assistance, insurance, memory or concentration loss, parenting, physicial functioning, school/work and sexual functioning A number of lifestyle/behaviors can affect your ongoing health, including the risk for the cancer coming back or developing another cancer. Discuss these recommendations with your doctor or nurse: alcohol use, diet, management of medications, management of other illnesses, physical activity, sun screen use, tobacco use/cessation and weight management (loss/gain) Resources you may be interested in: www.cancer.net [facility]oc[facility].com Director Compliance Technical Agronomist Art Therapy PSA (Prostate Cancer Support Group) meets the tuesday of every month from 2 PM to 3 PM, at [address] [place] [address] Mariela Jonesy Prepared by: Funmi Santos APRN.MANAGER AGRICULTURAL Delivered on: August 17, 2017 - This Survivorship Care Plan is a cancer treatment summary and follow-up plan is provided to you to keep with your health care records and to share with your primary care provider. - This summary is a brief record of major aspects of your cancer treatment. You can share your copywith any of your doctors or nurses. However, this is not a detailed or comprehensive record of yourcare.
--- OUTSIDE RECORDS SUMMARY | 2024-11-29 13:25 | XMS_ITS | Clinical Summary ---
Author Organization [facility] Address [address] [place] [address] Care Team Providers Care Beam Worker Name Role Phone Unavailable Primary Care Provider Unavailabl e Social History Tobacco UseTypesPacks/DayYears UsedDateSmoking Tobacco: Never AssessedUT Safety & EnvironmentAnswerDate RecordedFear of Current or Ex-PartnerNot on file 03/31/2023Emotionally AbusedNot on file03/31/2023hysically AbusedNot on file 03/31/2023Sexually AbusedNot on file03/31/2023hysically or Sexually AbusedNot on file03/31/2023Sex and Gender InformationValueDate RecordedSex Assigned at BirthNot on fileLegal KvzDyjo5008/06/2021 12:33 AM EDTGender IdentityNot on file Sexual OrientationNot on file Last Filed Vital Signs Vital SignReadingTime TakenCommentsBlood Pressure--Pulse--Temperature-- Respiratory Rate--Oxygen Saturation--Inhaled Oxygen Concentration--Tqpgil42.6 kg (202 lb)08/11/2021 8:32 AM ORGXhylpb433.7 cm (5' 8 )08/11/2021 8:32 AM EDTBody Mass Index30.71008/11/2021 8:32 AM EDT Plan of Treatment Health MaintenanceDue DateLast DoneCommentsMedicare Annual Wellness (AWV) 1940Depression Kcsbzrbnk10[birth year]21/1953Adult Sbnqfkt24/21/1961Pneumococcal Vaccine: 50+ Years (1 of 1 - PCV)1988Zoster Vaccines (1 of 2)1988 Fall Risk Cogazxpta53/21/2004COVID-19 Vaccine (1 - 2024- season)2024 Influenza Vaccine (#1)2024HIB VaccinesAged OutNo longer eligible based on patient's age to complete this topicHPV VaccinesAged OutNo longer eligible based on patient's age to complete this topicIPV VaccinesAged OutNo longer eligible based on patient's age to complete this topicMeningococcal B VaccineAged OutNo longer eligible based on patient's age to complete this topicMeningococcal VaccineAged OutNo longer eligible based on patient's age to complete this topic Rotavirus VaccinesAged OutNo longer eligible based on patient's age to complete this topic Insurance
--- OUTSIDE RECORDS SUMMARY | 2024-11-29 13:25 | XMS_ITS | Clinical Summary ---
Author Organization [facility] Address [address] [place] [id number] Care Team Providers Care Twisting Frame Fixer Name Role Phone Alpesh Hampton DO Primary Care Provider [phone] Allergies No known active allergies Medications MedicationSigDispense QuantityRefillsLast FilledStart DateEnd DateStatus ALPRAZolam (XANAX) 0.25 mg tablet 5008/24/2016Active meloxicam (MOBIC) 15 mg tablet 09/15/2016Active tamsulosin ER (FLOMAX) 0.4 mg cp24 Take 0.4 mg by mouth twice daily.Active amLODIPine (NORVASC) 5 mg tablet 06/29/2017Active tolterodine (DETROL) 2 mg tablet 4 mg.Active enzalutamide (XTANDI) 40 mg tablet Take 160 mg by mouth once daily.Active Active Problems ProblemNoted DateDiagnosed DateHistory of prostate usofke5008/17/2017Prostate wmqwwe7509/29/2016 Social History Tobacco UseTypesPacks/DayYears UsedDateSmoking Tobacco: NeverSmokeless Tobacco: Former Tobacco Cessation:Counseling Given: Not Answered Area Deprivation IndexAnswerDate RecordedNational Score (1-100), lower number is lower frqj102303/30/2024State Score (1-10), lower number is lower ttpu711 Data from: https://www.neighborhoodatlas.medicine.[facility].edu/. Last address used for [address]/30/2024Sex and Gender InformationValueDate RecordedSex Assigned at BirthNot on fileLegal MbsOxzh6309/10/2016 11:38 AM EDT Gender IdentityNot on fileSexual OrientationNot on file Last Filed Vital Signs Vital SignReadingTime TakenCommentsBlood Lhrdswpm329/8204/03/2024 4:02 PM EDT Zynyi202103/30/2024 2:33 PM GCNTegsmduxnkf77.6 ??C (97.8 ??F)03/30/2024 2:33 PM ESTRespiratory Rate--Oxygen Pkwszscypl26%03/30/2024 2:33 PM ESTInhaled Oxygen Concentration--Pcdyvg39.8 kg (209 lb)08/17/2017 10:25 AM TPQPutvst612.1 cm (5' 7.75 )09/29/2016 12:43 PM EDTBody Mass Index32.01009/29/2016 12:43 PM EDT Plan of Treatment Health MaintenanceDue DateLast DoneCommentsAnxiety Hjcobzaeu55/21/1957Depression Esolajnws95/21/1957Shingrix Vaccine (1 of 2)1957Medicare Annual Wellness Visit05/09/2003RSV Vaccine (1 - 1-dose 75+ series)2013Covid-19 Vaccine (3 - Pfizer risk series)/, 03/04/2020dvance Directive Ochnjiqflk24/01/2025Influenza Vaccine (#1)/09/2022, 11/25/2021, 10/23/2019, Additional history existsDiabetes Velrvvcki34/13/324558/, 01/18/2023, 01/17/2023, Additional history existsDTaP,Tdap,Td Vaccine (3 - Td or Tdap)/11/2022, 1Pneumococcal Vaccine: 50+Completed 10/23/2019, 12/27/2017, 02/07/2015 Insurance Care Teams Team MemberRelationshipSpecialtyStart DateEnd Date Alpesh Hampton DO PCP - GeneralInternal Medicine09/10/16
--- OUTSIDE RECORDS SUMMARY | 2024-11-29 13:38 | XMS_ITS | CCD ---
Author Organization [facility] CliniSysc Care Team Providers Care Supervisor Steno Pool Name Role Phone SHAUN, DR HUSAIN Primary [...] Unavailable DO Alpesh Dunn Primary Care Provider [phone] MD Marc Mckinney Admit Provider MD Marc Mckinney Attending Provider [phone] LAQUITA Joshi Other Provider Unavailable LAQUITA Samuels Other Provider Unavailable LAQUITA Gonzalez Other Provider Unavailable LAQUITA Dawkins Other Provider Unavailable LAQUITA Rendon Other Provider Unavailable LAQUITA Leyva Other Provider Unavailable MD Yadiel Yanez Other Provider SONAM Gan Other Provider DO Jacquie Cox Other Provider MD Timi Mercado Other Provider DO Sherwin Cavanaugh Other Provider [phone] MD Daniel Carnes Other Provider MD Flower Hendrickson Other Provider SONAM Bui Other Provider [phone] MD Rosamaria Gregory Other Provider MD Ga [...] Other Provider LAQUITA Flood Other Provider Unavailable LAURA FLORIAN Melita Referring Unavailable LAURA FLORIAN Melita Referring Unavailable FLORIAN SANCHEZ A Referring Unavailable Alpesh Dunn DO Primary Care Provider [phone] Lars Avelar MD Attending Provider Alpesh Dunn [...] Attending Unavailable ALPESH DUNN Primary Care Unavailable GARCIA, Luis No Attending Unavailable GARCIA, Luis No Attending Unavailable GARCIA, Luis No Attending Unavailable GARCIA, Luis No Attending Unavailable GARCIA, Luis No Attending Unavailable Medications Current Medications MedicationDrug Class(es)DatesSig (Normalized)Sig (Original)amLODIPine 5 mg oral tablet (20 sources)Dihydropyridine Calcium Channel BlockerStart: 06-29-2017 End: 92-08-2846ueJXZGFpvc (NORVASC) 5 mg tablet 06/29/2017 Activeaspirin 81 mg delayed release oral tablet (9 sources)Platelet Aggregation Inhibitor, Nonsteroidal Anti-inflammatory Drug Start: 10-08-2016 End: 15-03-6662Daozmik (Madi Low Dose Aspirin) 81 mg Tablet,Delayed Release (Dr/Ec) Active 81 MG PO Twice daily February 02, 2023 8:10amtake 1 tablet by mouth every twenty-four hoursAspirin 81 MG 1 tablet Orally Once a day ActiveDiclofenac (8 sources)Nonsteroidal Anti-inflammatory DrugStart: 68-88-8266askjd 2 g topically three times daily as needed for painDiclofenac Sodium 1 % Gel Active 2 GM TOPICAL Three times daily as needed for pain January 27, 2024 12:00am Start: 02-02-2023 End: 40-15-8853olijt 2 g topically three times dailyDiclofenac Sodium 1 % Gel Discontinued 2 GM TOPICAL Three times daily 03 08February 02, 2023 12:00am January 27, 2024 11:26amStart: 41-79-0356tlhvh 2 g topically three times dailyDiclofenac Sodium Active 2 GM TOPICAL Three times daily 1 February 02, 2023 12:00amDiclofenac Sodium 1 % 2 g topical Externally TID Activeenzalutamide 40 mg oral tablet (15 sources)Androgen Receptor InhibitorStart: 58-36-0520epvp 1 tablet by mouth four times dailyEnzalutamide 40 mg tablet Active 40 MG PO Four times daily June 21, 2023 11:00pmStart: 01-19-2023 End: 48-98-5493htgq 1 capsule by mouth once dailyEnzalutamide (Xtandi) 40 mg Capsule Discontinued 160 MG PO Daily with supper January 19, 2023 12:00am June 22, 2023 8:46amtake 4 tablets by mouth once dailyenzalutamide (XTANDI) 40 mg tablet Take 160 mg by mouth once daily. Activemeloxicam 15 mg oral tablet (20 sources)Nonsteroidal Anti-inflammatory DrugStart: 54-44-8485ouwf 1 tablet by mouth once dailyMeloxicam 15 mg tablet Active 0 .ROUTE .COMPLEX 90 March 08, 2024 7:06am Take 1 tablet by mouthonce dailyStart: 09-15-2016 End: 14-69-8546brvt 1 tablet by mouth once dailyMeloxicam 15 mg tablet Discontinued 15 MG PO Daily January 27, 2024 12:00am March 08, 2024 7: 06amtamsulosin hydrochloride 0.4 mg oral capsule (20 sources)alpha-Adrenergic BlockerStart: 01-19-2023 End: 47-73-8957oizd 1 capsule by mouth twice dailyTamsulosin (Flomax) 0.4 mg Capsule Active 0.4 MG PO Twice daily February 02, 2023 8:10amtake 1 capsule by mouth every twenty-four hoursTamsulosin HCl 0.4 MG 1 capsule Orally Once a day Qhrqzf05 hr tolterodine tartrate 4 mg extended release oral capsule (16 sources)Cholinergic Muscarinic AntagonistStart: 01-19-2023 End: 25-28-8040cino 1 capsule by mouth once dailyTolterodine 4 mg Capsule,Extended Release 24hr Active 4 MG PO Daily 30 February 02, 2023 8:10amtolterodine (DETROL) 2 mg tablet 4 mg. Active Completed/Discontinued Medications MedicationDrug Class(es)DatesSig (Normalized)Sig (Original)acetaminophen 500 mg oral tablet (6 sources)Start: 02-02-2023 End: 67-60-8235zfdc 1 tablet by mouth every four hours as needed for pain Acetaminophen 500 mg Tablet Discontinued 500 MG PO Q4H as needed for Pain 0 February 02, 2023 12:00am June 24, 2023 8:16amtake 1 capsule by mouth every four hours as needed for painAcetaminophen 500 MG 1 capsule as needed Orally every 4 hours for pain ActiveALPRAZolam 0.25 mg oral tablet (20 sources)BenzodiazepineStart: 02-18-2023 End: 27-49-5375anul 0.5 tablet by mouth once daily at dinner, then take 1 tablet by mouth once at bedtimeAlprazolam 0.25 mg tablet Discontinued 0 PO Daily 135 90 June 23, 2023 11:00pm January 09, 2024 5:09pm 1/2 PO w/ evening meal and 1 PO q HSStart: 94-42-2740qvtm 0.5 tablet by mouth once daily at mealtime, then take 1 tablet by mouth once daily at bedtimeALPRAZolam 0.25 MG TAKE 1/2 TABLET BY MOUTH EVERY EVENING WITH MEAL AND TAKE ONE TABLET BY MOUTH EVERY NIGHT AT BEDTIME Jul, ActiveStart: 10-08-2016 End: 47-88-4525skyw 1 tablet by mouth once dailyAlprazolam 0.25 mg Tablet Discontinued 0.25 MG PO Daily October 07, 2016 11:00pm January 19, 2023 5:00pmStart: 65-73-0562IEEAKYbowo (XANAX) 0.25 mg tablet 5 08/24/2016 Active ciprofloxacin 500 mg oral tablet (2 sources)Quinolone AntimicrobialStart: 12-19-2023 End: 31-10-7388xeja 1 tablet by mouth twice dailyCiprofloxacin Hcl 500 mg tablet Discontinued 500 MG PO Twice daily 20 08December 19, 2023 12:00amDecember 2023 11:25amdoxazosin 2 mg oral tablet (3 sources)alpha-Adrenergic BlockerStart: 10-08-2016 End: 00-62-7847llaj 1 tablet by mouth once dailyDoxazosin 2 mg Tablet Discontinued 2 MG PO daily October 07, 2016 11:00pm January 19, 2023 5:01pm 0.3 ml enoxaparin sodium 100 mg/ml prefilled syringe (6 sources)Low Molecular Weight HeparinStart: 06-24-2023 End: 22-17-2598Rbmirjbwzr (Lovenox) 30 mg/0.3 mL syringe Discontinued 30 MG SUBCUT Daily June 23, 2023 11:00pm June 24, 2023 8:23amStart: 01-19-2023 End: 35-63-5223nzwfol 30 mg by subcutaneous injection every twelve hours Enoxaparin 30 mg/0.3 mL Syringe Discontinued 30 MG SUBCUT Q12H January 19, 2023 12:00am 2022 8:11amergocalciferol 1.25 mg oral capsule (9 sources)Provitamin D2 CompoundStart: 01-19-2023 End: 81-68-6874hnew 1 capsule by mouth every weekErgocalciferol (Vitamin D2) 1,250 mcg (50,000 unit) Capsule Discontinued 1250 MCG PO every week 07 06February 02, 2023 8:10am January 27, 2024 11:26amferrous sulfate 324 mg delayed release oral tablet (6 sources)Start: 02-02-2023 End: 13-46-6096yzud 1 tablet by mouth once dailyFerrous Sulfate 324 mg (65 mg iron) Tablet,Delayed Release (Dr/Ec) Discontinued 324 MG PO Daily February 02, 2023 12:00am June 24, 2023 8:17amtake 1 tablet by mouth three times weeklyFerrous Sulfate 325 (65 Fe) MG 1 tablet Orally Three times a Week Active ibuprofen 400 mg oral tablet (2 sources)Nonsteroidal Anti-inflammatory DrugStart: 06-24-2023 End: 25-00-6521wlwc 1 tablet by mouth every six hoursIbuprofen 400 mg tablet Discontinued 400 MG PO Every 6 hours June 23, 2023 11:00pm January 27, 2024 11:26amlidocaine 0.04 mg/mg medicated patch (9 sources)Antiarrhythmic, Amide Local AnestheticStart: 01-19-2023 End: 91-58-0026kwtsm 1 dose topically once dailyLidocaine 4 % Adhesive Patch,Medicated Discontinued 1 PATCH TOPICAL Daily February 02, 2023 8:10am June 24, 2023 8:18ammelatonin 5 mg oral tablet (6 sources)Start: 02-02-2023 End: 67-96-8168ofve 1 tablet by mouth once daily at bedtime as needed for sleep Melatonin 5 mg Tablet Discontinued 5 MG PO Daily at bedtime as needed for Sleep February 02, 2023 12:00am June 24, 2023 8:18ammetFORMIN hydrochloride 850 mg oral tablet (4 sources)BiguanideStart: 02-02-2023 End: 33-75-4518ezyd 1 tablet by mouth once dailyMetformin 850 mg Tablet Discontinued 850 MG PO Daily with supper February 02, 2023 12:00am June 22, 2023 8:46amMultivitamin preparation (1 source)Start: 10-08-2016 End: 49-30-9973mqdx 1 tablet by mouth once dailyMultivitamin Discontinued 1 TAB PO daily October 07, 2016 11:00pm January 19, 2023 5:01pmMultivitamin Tablet,Chewable (2 sources)Start: 10-08-2016 End: 53-76-8525uswm 1 tablet by mouth once dailyMultivitamin Tablet,Chewable Discontinued 1 TAB PO daily October 07, 2016 11:00pm January 19, 2023 5:01pm ondansetron 4 mg disintegrating oral tablet (4 sources)Serotonin-3 Receptor AntagonistStart: 02-02-2023 End: 19-80-9739ynme 1 tablet by mouth every eight hours as needed for nausea and vomitingOndansetron 4 mg Tablet,Disintegrating Discontinued 4 MG PO Every 8 hours as needed for Nausea And Vomiting February 02, 2023 12:00am June 22, 2023 8:46amtake 1 tablet by mouth every twenty-four hoursOndansetron 4 MG 1 tablet on the tongue and allow to dissolve Orally Once a day ActiveoxyCODONE hydrochloride 5 mg oral tablet (4 sources)Opioid AgonistStart: 02-02-2023 End: 72-55-5831nnuk 1 tablet by mouth every eight hours as needed for pain Oxycodone 5 mg Tablet Discontinued 5 MG PO Every 8 hours as needed for Pain (Scale Score 7-10) 15 5December 2022June 22, 2023 8:46amSod Picosulf-Mag Ox-Citric Ac (2 sources)Start: 01-12-2024 End: 81-73-3452Unb Picosulf-Mag Ox-Citric Ac (Clenpiq) 10 mg-3.5 gram- 12 gram/175 mL solution Discontinued 175 MLPO .COMPLEX 350 1 January 12, 2024 12:00am January 27, 2024 11:26am Follow instructions given by office Problems Active Problems Problem ClassificationProblemDateDocumented DateEpisodic/Chronic Administrative/social admission (4 sources)Other reduced mobility; Translations: [Impaired mobility and activities of daily living]53-79-5822TyqbaxgyMlta and rectal conditions (5 sources)Lesion of rectum; Translations: [Disease of anus and rectum, unspecified]Onset: 860043-69-2922ObouvyosKsnsrzm disorders (16 sources)Generalized anxiety disorder; Translations: [Generalized anxiety disorder]ChronicCancer of prostate (20 sources)Carcinoma of prostate; Translations: [Malignant neoplasm of prostate]Onset: 90-14-2336AvqhmsfObfflut on above:Dx: 2017 s/p radiation and ADT Deficiency and other anemia (1 source)Anemia; Translations: [Anemia, unspecified]98-39-4103Jmsandjo Deficiency and other anemia (1 source)Anemia, unspecified; Translations: [Anemia, unspecified]02-02-2023 EpisodicDiabetes mellitus without complication (2 sources)Diabetes mellitus; Translations: [Type 2 diabetes mellitus without complications]03-59-8079EgcnfmfHnkenxfc mellitus without complication (3 sources)Impaired fasting glycemia; Translations: [Impaired fasting glucose] 81-68-0028RqyyurciWznrslctbr disorders (10 sources)Gastro-esophageal reflux disease with esophagitis; Translations: [Gastroesophageal reflux disease with esophagitis without hemorrhage]06-22-2023 ChronicEssential hypertension (20 sources)Essential hypertension; Translations: [Essential (primary) hypertension]ChronicGenitourinary symptoms and ill-defined conditions (14 sources)Urgency of urination; Translations: [Delay when starting to pass urine]Onset: 78-55-1543TripdgvkLqhjqhrdvsb of prostate (16 sources)Benign prostatic hyperplasia with lower urinary tract symptoms; Translations: [Benign prostatic hyperplasia]Onset: 50-94-5307VvbuhggBwikugowqpsy with complications and secondary hypertension (1 source)Hypertensive heart disease with heart failure; Translations: [HTN HEART DISEASE W/HEART FAIL]Onset: 50-09-5430GfjpydiAeflsiq and fatigue (3 sources)Other fatigue; Translations: [Fatigue]EpisodicOpen wounds of head; neck; and trunk (1 source)Laceration without foreign body of scalp, subsequent encounterEpisodic Osteoarthritis (10 sources)Arthritis; Translations: [Unspecified osteoarthritis, unspecified site]ChronicOther acquired deformities (10 sources)Acquired unequal leg length; Translations: [Unequal limb length (acquired), unspecified site]EpisodicOther aftercare (2 sources)Other nursing home (current) drug therapy; Translations: [OTH SKILLED NURSING CURRENT DRUG THERAPY]Onset: 88-19-6452VtdwmqrlZlmky and unspecified benign neoplasm (10 sources)Tubular adenoma of colon; Translations: [Benign neoplasm of colon, unspecified]EpisodicOther and unspecified benign neoplasm (2 sources)Polyp of colon; Translations: [Polyp of colon]38-11-3830Kmksqklx Comment on above:Tubulovillous adenoma w/o dysplasia - 01/2024Other bone disease and musculoskeletal deformities (10 sources)Idiopathic aseptic necrosis of right ankle; Translations: [Idiopathic aseptic necrosis of right ankle]ChronicOther circulatory disease (1 source)Other specified symptoms and signs involving the circulatory and respiratory systemsEpisodicOther connective tissue disease (10 sources)Pain in limb; Translations: [Pain in right lower leg]EpisodicOther diseases of bladder and urethra (3 sources)Urethrorectal fistula; 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]03-30-2024 ChronicOther diseases of bladder and urethra (1 source)Urethral fistula; 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]Onset: 25-41-8508DacvhvoZarmf fractures (1 source)Multiple fractures of ribs, right side, subsequent encounter for fracture with routine healingEpisodicOther gastrointestinal disorders (10 sources)Radiation enterocolitis; 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]EpisodicOther gastrointestinal disorders (2 sources)Diarrhea; Translations: [Diarrhea, unspecified]33-27-8681Koiivhut Other gastrointestinal disorders (1 source)Diarrhea, unspecified; Translations: [Diarrhea]23-30-2099NvlfrrwuYwajj injuries and conditions due to external causes (2 sources)Radiation sickness, unspecified, sequela; Translations: [Late effect of radiation]Onset: 022916-37-5057ZhmxosklFhnvs lower respiratory disease (1 source)Other forms of dyspneaEpisodicOther nervous system disorders (1 source)Dysarthria and anarthriaEpisodicOther nervous system disorders (1 source)Hip pain; Translations: [Other acute postprocedural pain]01-20-2023 EpisodicOther nervous system disorders (1 source)Other acute postprocedural pain; Translations: [Pain in joint, pelvic region and thigh]17-63-5128NyubbiycAsbew nutritional; endocrine; and metabolic disorders (15 sources)Body mass index 30+ - obesity; Translations: [Body mass index (BMI) 32.0-32.9, adult]ChronicOther nutritional; endocrine; and metabolic disorders (10 sources)Obesity; Translations: [Other obesity due to excess calories]Chronic Other nutritional; endocrine; and metabolic disorders (2 sources)Other obesity due to excess caloriesChronicOther nutritional; endocrine; and metabolic disorders (2 sources)Body mass index (BMI) 32.0-32.9, adultChronicOther nutritional; endocrine; and metabolic disorders (1 source)Body mass index (BMI) 31.0-31.9, adultChronicOther nutritional; endocrine; and metabolic disorders (2 sources)Overweight; Translations: [Overweight]52-16-4840EjzfspyxYrvah nutritional; endocrine; and metabolic disorders (1 source)Weight loss; Translations: [Abnormal weight loss]16-24-5453Vxcfcsxc Comment on above:EGD: normal - 01/2024,Colonoscopy: polypectomy - chest: normal - T abd/pelvis: normal - 12/2023, 01/2024Other nutritional; endocrine; and metabolic disorders (1 source)Weight decreased; Translations: [Abnormal weight loss]02-09-2024 EpisodicComment on above:EGD: normal - 01/2024,Colonoscopy: polypectomy - chest: normal - T abd/pelvis: normal - 12/2023, 01/2024Other screening for suspected conditions (not mental disorders or infectious disease) (3 sources)Imaging result abnormal; Translations: [Abnormal findings on diagnostic imaging of other specified body structures]86-74-6870OcpmiiqTlicp screening for suspected conditions (not mental disorders or infectious disease) (4 sources)Rising PSA following treatment for malignant neoplasm of prostate; Translations: [RISING PSA FLW TXMALG MARY PROSTATE]Onset: 61-02-9622RuxgitrdOelcs skin disorders (1 source)Localized swelling, mass and lump, neckEpisodicSkin and subcutaneous tissue infections (10 sources)Cellulitis of right lower limb; Translations: [Cellulitis of right lower limb]EpisodicSpondylosis; intervertebral disc disorders; other back problems (17 sources)Lumbar spondylosis; Translations: [Spondylosis without myelopathy or radiculopathy, lumbar region]ChronicSuperficial injury; contusion (5 sources)Contusion of nose, subsequent encounter; Translations: [Contusion of rib]Episodic Past or Other Problems Problem ClassificationProblemDateDocumented DateEpisodic/ChronicCancer of prostate (8 sources)Personal history of malignant neoplasm of prostate; Translations: [History of malignant neoplasm ofprostate]Onset: 401996-02-2403Fhwbjulh Esophageal disorders (4 sources)Esophageal disorders; Translations: [Gastroesophageal reflux disease with esophagitis without hemorrhage]Fracture of lower limb (6 sources)Fracture of femur; Translations: [Unspecified fracture of right femur, initial encounter for closedfracture]Onset: 505913-52-2935Jpcldlft Other connective tissue disease (4 sources)Pain in right lower leg; Translations: [PAIN IN RIGHT LOWER LEG] Onset: 17-48-7157NprrgpynAjecq connective tissue disease (1 source)Other specified soft tissue disorders; Translations: [OTHER SPEC SOFT TISSUE DISORDERS]Onset: 29-53-7371PmpbidwcUshsn lower respiratory disease (4 sources)Chronic cough; Translations: [CHRONIC COUGH]Onset: 18-44-1049Cjwrumal Other nutritional; endocrine; and metabolic disorders (2 sources)Abnormal weight loss; Translations: [Loss of weight]Onset: 01-27-2024 38-45-2233Niehqtdh Results Test NameValueInterpretationReference RangeFacilityAmbulatory Visit Summaryon 86-51-0972Sukmqhheab Visit SummaryAmbulatory Visit Summary PARK GUIDRY :1940 Visit Date:07/20/2024 Ambulatory Visit Instructions Your Diagnosis Rising PSA following treatment for malignant neoplasm of prostate Prostate cancer BPH with urinary obstruction OAB (overactive bladder) Pneumaturia Colovesical fistula Your Care Team Attending Physician - Luis [...] fluoroscopic guidance (05/03/2022), left total hip arthroplasty (01/30/2018),Cystoscopy (12/13/2017), lumbar medial branch block (11/21/2017), Facet [...] Luis GARCIA MD Where: [facility] [address] [place] [address]- You Need to Schedule the Following Appointments Follow Up with JOSE LYNN, GLORIA Brooks When: Where: [address] [place] [id number]- Medications What How Much When Instructions Unchanged enzalutamide (enzalutamide 40 mg oral capsule) 4 Capsules By Mouth Every day Duration: 90Days Unchanged tamsulosin (Flomax 0.4 mg Cap) 1 [...] getting an erection. ??? (more content not included)...[facility] ClinicU[facility] Office/Clinic Noteon 38-82-3720Qdjnhpr Office/Clinic NoteUrology Office/Clinic Note Chief Complaint 6 month with PSA and Lupron HPI Staff 84 year old male patient here for 6 month follow up with PSA and Lupron. Previous dx: rising PSA following treatment for malignant neoplasm of prostate, prostate cancer (brachytherapy 12/23/16), urgeincontinence, BPH with urinary obstruction, pneumaturia, OAB, Colovesical [...] <0.1 07/16/24 - <0.13 TRUS/bx 08/24/16 - Pj 7 [...] genitourinary system) CT AP w con 12/24/23 [facility] - No suspicious findings. CT AP w con 01/27/24 [facility] - Unremarkable bladder. Prostate seeds present. 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 See above for cysto findings. Reports he has seen the appropriate provider and declined surgery. Follow-up With When Contact Information Luis GARCIA MD, URL [address] [place] [address]- Additional Instructions: 6 mos w/ PSA and [...] Colovesical fistula Insomnia Kn (more content not included)...[facility] ClinicComment on above:Result Comment: Electronically Signed By: Luis GARCIA MD\.br\Date and Time Signed: 07/20/24 10:40 EDT\.br\Electronically Co-Signed By: Janet Jasso\Date and Time Co-Signed: 07/20/2509:32 EDTCNOVon 23-27-9790DRIY Office Visit (URFMOB) PARK GUIDRY ([id number]) 1940 M Date Time Provider Department 05/09/24 3:30 PM TODD CABALLERO URFMOB During your visit today, we recorded the following information about you: Blood pressure 146/82 Nikki Wallace RN 05/09/2024 9:00 PM Signed Post void residual done on patient with 0 cc residual volume remaining. notified. LAQUITA Ramirez Molly, MD 05/09/2024 9:00 PM Signed [facility] UROLOGY NEW PATIENT CLINIC NOTE SERVICE DATE: 05/09/2024 NAME: Park Guidry REFERRED BY: Donna Singh [id number] [facility] [address] 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 - enzalutamide (XTANDI) 40 mg tablet Take 160 mg by mouth once daily. - amLODIPine (NORVASC) 5 mg tabl (more content not included)...NormalFairview HospitalCreatinine (Bld) [Mass/Vol]Ordered By: Imjosé antonio Avelar on 04-03-2024 Creatinine [Mass/Vol]Whole blood creatinine measurement0.6-1.3FGrand Lake Joint Township District Memorial HospitalComment on above:ER/ESD physician is notified/shown all ISTAT results.Critical values may be confirmed by laboratorytesting ifdeemed necessary by ER attending doctor.ISTAT XRay CREon 50-72-7178Aquughxspa [Mass/Vol]0.9 mg/dLNormal0.6-1.3The [facility] Physician GroupComment on above:Result Comment: ER/ESD physician is notified/shown all ISTAT results. Critical values may be confirmed by laboratory testing if deemed necessary by ER attending doctor.Performed By: #### ISCRE #### [place] [address] USAISTAT GFR>60.0NormalThe [facility]ly [facility] Physician GroupComment on above:Result Comment: PERFORMED BY: [place] [address] PATHOLOGIST CUFF TURNER PATTY ZHENG M.D.Performed By: #### ISCRE #### [facility] [address] [id number] [facility] pelvis wo/w conon 98-14-1112XD pelvis wo/w [facility] [address] [place] [address] [place] [address] MRI Report Signed Patient: Park Guidry MR#: [id number] : 1940 Acct:[id number] Age/Sex: 83 / M ADM Date: 04/03/24 Loc: MR Room: Type: [facility] Attending Dr: Lars Avelar MD Copies [...] Jr, DO 04/03/24 1046 Signed By: 04/03/24 1058[facility] Physician GroupMagnetic resonance imaging reportOrdered By: Jackson Kerns on 98-21-9830Tdolh reportJ.W. [facility] [place] [address] [place] [address] MRI Report Signed Patient: Park Guidry MR#: [id number] : 1940 Acct:[id number] Age/Sex: 83 / M ADM Date: 5 Loc: MR Room: Type: [facility] Attending Dr: Lars Avelar MD Copies [...] THICKENING AND ENHANCEMENT. THE ENHANCEMENT APPEARS TO EXTENDINTO THE REGION OF THE PROSTATE GLAND AND BLADDER NECK WITH AIR SEEN WITHIN THE URINARY BLADDER LUMEN SUSPICIOUSFOR UNDERLYING FISTULA. CORRELATION WITH COLONOSCOPY FINDINGS IS RECOMMENDED. FINDING MAY BE POSTTREATMENT IN NATURE GIVEN THE RADIATION SEEDS WITHIN THE PROSTATE GLAND. Impression dictated by: Jackson Kerns Jr., DRizwana04/03/2024 10:58 AM Dictation Location: RADIO-PC-22 Transcribed By: [facility] 04/03/24 1058 Dictated By: Jackson Kerns Jr, DO 04/03/24 1046 Signed By: 04/03/24 1058 [facility] HospitalNo Panel InformationOrdered By: Lars Avelar on 09-16-5658Eyivgjh Estimated GFR (eGFR)> 60.0[facility] CNOVon [id number] Visit ([facility]) HEENAJASWINDERPARK [place]leton ([id number]) 1940 M Date Time Provider Department 03/30/24 2:40 PM DONNA SINGH [facility] During your visit today, we recorded the following information about you: Temperature Pulse Blood pressure 97.8 degrees 83/minute 151/92 Donna Singh MD 03/30/2024 3:51 PM Signed COLORECTAL SURGERY March 30, 2024 Park Guirdy 83 year old This consult was requested by Dr. Lars Shi and my final recommendations will be communicated to the requesting health care provider by way of the shared medical record for internal providers or letter via the [employer] for external providers. Chief Complaint: ulcer of anus and rectum History of Present Illness: Park Guidry is a 83 year old male presents today for evaluation of rectal ulcer. MRI scheduled for 04/03/24 at [facility] CT CAP 01/27/24 - [facility] Scan on 03/05/2024 3:53 PM by Celia Garcia: [facility] Chest,Abdomen and Pelvis 01/27/24 Impression: Circumferential irregular wall thickening of the distal sigmoid colon and rectum likely corresponding with patient's history of rectal ulceration and suspicion for malignancy. No adjacent enlarged lymph nodes. No distal metastatic disease of the chest abdomen or pelvis Sigmoidoscopy 03/02/24 - Dr. Avelar Scan on 03/05/2024 3:50 PM by Celia Garcia: [facility]- Sigmoidoscopy Notes 03/02/24 Rectum: Excavated ulcerated lesion in the rectum (4 cm), biopsied using jumbo biopsy Pathology 03/02/24 Scan on 03/22/2024 4:01 PM by Celia Garcia: [facility]- Pathology Report 03/02/24 - Ulcer with reactive stromal atypia, negative for carcinoma Colonoscopy 01/27/24 - Dr. Avelar Scan on 03/05/2024 3:51 PM by Celia Garcia: [facility]- EGD AND Colonoscopy Report 01/27/24 Ascending colon: [...] exam reveals anterior divot consistent with ulcer Dirt Supervisor present: Yes, Ximena Sheets Anoscopy could not be performed due to patient discomfort The sensitive examination was discussed with the Patient or Patient's Authorized Lumber Handler. As applicable, any other physician, advance practice provider, medical student, or other health professional student that will be observing or involved in the sensitive examination for educational or training purposes was discussed with the Patient or Authorized Lumber Handler. The Patient or Authorized Lumber Handler has agreed to proceed with the sensitive [...] certainly does not wa (more content not included)...NormalKettering Health MiamisburgCNPNon [id number] ([facility]) PARK GUIDRY ([id number]) 1940 M Date Time Provider Department 03/22/24 DONNA SINGH [facility] During your visit today, we recorded the following information about you: Ilan Padilla, RN 03/22/2024 10:47 AM Signed Called [facility] Die Equipment Operator, Lamar Matthew, and told her I was [...] 08/17/2017 Encounter Status:Closed by ILAN PADILLA on 03/22/24[facility] [id number] ([facility]) PARK GUIDRY ([id number]) 1940 M Date Time Provider Department 03/09/24 DONNA SINGH [facility] During your visit today, we recorded the following information about you: Celia Garcia 03/09/2024 8:55 AM Signed 03/09 Tried to leave but unable to Allergies As of Date: [...] 08/17/2017 Encounter Status:Closed by CELIA GARCIA on 03/09/24[facility]) PARK GUIDRY ([id number]) 1940 M Date Time Provider Department 03/09/24 DONNA SINGH [facility] During your visit today, we recorded the [...] 08/17/2017 Encounter Status:Closed by CELIA GARCIA on 03/09/24[facility] [id number] ([facility]) PARK GUIDRY ([id number]) 1940 M Date Time Provider Department 03/08/24 DONNA SINGH [facility] During your visit today, we recorded the [...] 08/17/2017 Encounter Status:Closed by CELIA GARCIA on 03/08/24[facility] CenterG[facility] PATHOLOGY REFERENCE LAB CONSULTon [id number] REPORTNormal [facility] on above:Order Comment: Specimen Type: FORMALIN-FIXED PARAFFIN-EMBEDDED TISSUE SPECIMEN Ordering [facility] Address: [address] [place] [place], [place] [address]Zibfzo Comment: Surgical Pathology Report Case: [id number] Authorizing Provider: Leyda Heaton MD Collected: 03/07/2024 02:35 PM Ordering Location: [facility] Received: 03/07/2024 02:34 PM [facility] Pathologist: Josephine Fritz MD Specimen: Block(s) and/or Slide(s), 3 SLIDES & 1 BLOCK ([id number]: A1)Performed By: #### [id number] #### [facility] CLIA [id number] [address] [place] [address] UNITED STATES OF AMERICACLINICAL HISTORYCONSULT REQUESTEDNoThe MetroHealth SystemComuniversity of mich[facility] health on above:Order Comment: Specimen Type: FORMALIN-FIXED PARAFFIN-EMBEDDED TISSUE SPECIMEN Ordering Facility[facility] Address: [place], [place] [address]Lmkunqnhf By: #### [id number] #### [facility] CLIA [id number] [address] [place] [address] OF [facility] WESTDIAGNOSIS COMMENTNormal [facility] on above:Order Comment: Specimen Type: FORMALIN-FIXED PARAFFIN-EMBEDDED TISSUE SPECIMEN Ordering Facility: [facility] Address: [place], [place] [address]Hpwlet Comment: Thank you for allowing us the opportunity to review this case in consultation representing the rectal lesion biopsy from this 83-year-old patient with clinical history of rectal ulcer. Histologic sections demonstrate multiple fragments of active and organizing granulation tissue withfibropurulent debris. Some of the granulation tissue shows hyalinization and perivascular fibrosis.Scattered throughout are numerous large and pleomorphic atypical stromal cells with enlarged hyperchromatic nuclei, variably prominent nucleoli, a moderate amount of eosinophilic cytoplasm, and a polygonal to spindle cell shaped. On the provided immunostain, these atypical cells are negative for AE1/AE3. We do not see evidence of viral inclusions. Overall these findings are of a fibroinflammatoryprocess which is negative for carcinoma, and with the reactive stromal atypia representing benign ulcerocytes. Thank you for sending this case in consultation. Please do not hesitate to contact the GI consultation service at [phone] with questions or if additional follow-up information becomes available.Performed By: #### [id number] #### [facility] CLIA [id number] [address] [place] [address] STATES OF AMERICAFINAL DIAGNOSISNormal [facility] on above:Order Comment: Specimen Type: FORMALIN-FIXED PARAFFIN-EMBEDDED TISSUE SPECIMEN Ordering Facility[facility] Address: [place], [place] [address]Ysqcfb Comment: Rectal lesion, biopsy (A): - Ulcer with reactive stromal atypia, negative for carcinoma. Performed By: #### [id number] #### [facility] CLIA [id number] [address] [place], [place] [id number] FOLCROFT STATES OF AMERICAFINAL PERFORMING LABNormal [facility] MiamisburgComuniversity of michigan health on above:Order Comment: Specimen Type: FORMALIN-FIXED PARAFFIN-EMBEDDED TISSUE SPECIMEN Ordering Facility: [facility] Address: [place] [address]Ggkzxe Comment: Diagnostic interpretation performed at: [facility], [address] [place] [address], [place] [id number] CLIA# [id number] District Plant Engineer: KALYN Bailonerformed By: #### [id number] #### [facility] CLIA [id number] [address] [place], [place] [address] [facility] WESTAmbulatory Visit Summaryon [id number] Visit SummaryAmbulatory Visit Summary PARK GUIDRY :1940 Visit Date:03/06/2024 Ambulatory Visit Instructions Your Diagnosis Pneumaturia Colovesical fistula Rising PSA following treatment for malignant neoplasm of prostate Prostate cancer OAB (overactive bladder) BPH with urinary obstruction Your Care Team Attending Physician - JOSE LYNN, Luis No Primary Care Physician - SHAUN GORE ALPESH This Is Your Medications List ciprofloxacin [...] fluoroscopic guidance (05/03/2022), left total hip arthroplasty (01/30/2018),Cystoscopy (12/13/2017), lumbar medial branch block (11/21/2017), Facet [...] Luis GARCIA MD Where: [facility] [address] [place] [address]- You Need to Schedule the Following Appointments Follow Up with Luis GARCIA MD, URL When: Where: [facility] [address], [place] [address]- Medications What How Much When Instructions Unchanged ciprofloxacin (Cipro 500 mg Tab) 1 Tablets By Mouth Every day take one tab day before procedure and one tab after procedure Unchanged enzalutamide (enzalutamide 40 mg oral capsule) 4 Capsules By Mouth Every day Duration: 90Days Unchanged tamsulosin (Flomax 0.4 mg Cap) 1 [...] cancer. Work with your health care provider tocreate a cancer screening schedule that protects your health. Who should have screening? All people who are male should be considered for screening of certain cancers, including colorectalcancer, prostate cancer, lung cancer, and skin cancer. Your health care provider may recommend screenings for other types of cancer if: ??? You have had cancer before. ??? You have a family member with cancer. ??? You have genes that could increase the risk of cancer. ??? You have risk factors for certain cancers, such as current or past use of tobacco products or beingoverweight. What are the benefits of screening? Cancer screening is done to look for cancer in the very early stages, before it spreads and becomesharder to treat and before you would start to notice symptoms. Finding cancer early improves the (more content not included)...Normal [facility] Main CampusCNPNon [id number] ([facility]) PARK GUIDRY ([id number]) 1940 M Date Time Provider Department 03/06/24 DONNA SINGH [facility] During your visit today, we recorded the [...] 08/17/2017 Encounter Status:Closed by CELIA GARCIA on 03/06/24[facility]/Clinic Noteon [id number] Office/Clinic Note Urology Office/Clinic Note Chief Complaint [...] - Unremarkable bladder. Prostate seeds present. Irregular circumferentialwall thickening of the distal sigmoid colon and rectum. Mild adjacent fat stranding. No perirectal or pericolonic adenopathy. No pelvic sidewall adenopathy. Pt had IO cysto today wo complications. 2. 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 See procedure section, highly suspect CVF however too much debris to visualize any fistula. Follow up after below or sooner if needed. Pt understands and agrees with plan. -Will send updated records to [facility] at [facility]. 3. Rising PSA following treatment for malignant neoplasm of prostate (R97.21: Rising PSA following treatment for malignant neoplasm of prostate) PSA: 01/19/21 - 0.10 07/22/21 - 3.30 01/20/22 - 0.52 07/21/22 - 1.07 01/12/23 - <0.13 08/12/23 - <0.13 01/23/24 - <0.1 TRUS/bx 08/24/16 - [place] 7 (4+3) x 1 core 9% of [...] 0.4mg bid. Follow-up With When Contact Information Luis GARCIA MD, URL [facility] [address], [place] [address]- Additional Instructions: 07/20/24 for 6 m with [...] of prostate Historical Elevate (more content not included)...[facility] Osteopathic ClinicComment on above:Result Comment: Electronically Signed By: Luis GARCIA MD\.br\Date and Time Signed: 03/06/24 15:33 EST\.br\Electronically Co-Signed By: Kristin Dennis\.br\Date and Time Co-Signed: 03/06/24 15:29 ESTLon 03-02-2024 Specimen: [id number] Received: 03/02/24 Status: KATLYN Anderson Num: [id number] Spec Type: Surgical Subm Dr: Lars Avelar MD Tissues: A Colon Biopsy (RECTAL LESION BX) Procedures: HE/2, Gross/Micro L4, AE1-AE3 Age/ Patient Sex Location Account Attending Physician Park Guidry/M [id number] Lars Avelar MD SPEC NUM: [id number] RECD: 03/02/24 STATUS: KATLYN ANDERSON NUM: [id number] JONI: 03/02/24 [facility] DR: Lars Avelar MD ENTERED: 03/02/[address] [facility] [address]: SPEC TYPE: Surgical DEPT: S ORDERED: HE/2, Gross/Micro L4, AE1-AE3 ORDERED: HE/2, Gross/Micro L4, AE1-AE3 Supplemental Report Addendum 1 Entered: 03/08/24 Supplemental for findings of consultation report from [facility] -Ulcer with reactive stromal atypia, negative for carcinoma Addendum Signed (signature on file) Mei Luevano MD 03/08/24 1637 Pathological Diagnosis Rectal lesion biopsy -Gross only examination Note: -The case was previously submitted to [facility] or external consultation service by Dr. Leyda Heaton Specimen: [id number] Received: 03/02/24-1020 Status: KATLYN Anderson Num: [id number] Spec Type: Surgical Subm Dr: Lars Avelar MD Tissues: A Colon Biopsy (RECTAL LESION BX) Procedures: HE/2, Gross/Micro L4, AE1-AE3 Patient: Park Guidry [id number] (Continued) Specimen: [id number] Received: 03/02/24 (Continued) Signed (signature on file) Mei Luevano MD 03/08/24 1634 Specimen: S2 Received: 03/02/24 Status: KATLYN Anderson Num: [id number] Spec Type: Surgical Subm Dr: Lars Avelar MD Tissues: A Colon Biopsy (RECTAL LESION BX) Procedures: HE/2, Gross/Micro L4, AE1-AE3 Patient: Park Guidry [id number] (Continued) Specimen: S2 Received: 03/02/24 (Continued) Clinical Information Rectal ulcer Gross Description Part A is received in formalin labeled with the patients name, date of , and rectal lesion BX are 3 lucero-white, focally erythematous, friable, 0.2, 0.3 and 0.3 cm in greatest dimension tissue bits. The specimen is entirely submitted in a single cassette. (1, ns, [id number] A) CPT Codes 96476 Specimen: [id number] Received: 03/02/24 Status: KATLYN Anderson Num: [id number] Spec Type: Surgical Subm Dr: Lars Avelar MD Tissues: A Colon Biopsy (RECTAL LESION BX) Procedures: HE/2, Gross/Micro L4, AE1-AE3 Patient: Park Guidry [id number] (Continued) Signed (signature on file) Francois-Hany Luevano MD 03/08/[address] [place] [address] Physician GroupXR FEMUR RIGHT (MIN 2 VIEWS)on 02-05-2024 XR FEMUR RIGHT (MIN 2 VIEWS)History: Right femur IMN Comparison: 03/08/2023 Findings: 2 [...] Signed by: Florian Sanchez DO 02/05/[address] Elizabeth Boardman HospitalAmbulatory Visit Summaryon [id number] Visit SummaryAmbulatory Visit Summary PARK GUIDRY :1940 Visit Date:01/30/2024 Ambulatory Visit Instructions Your Diagnosis Rising PSA following treatment for malignant neoplasm of prostate Prostate cancer Urge incontinence BPH with urinary obstruction Pneumaturia Your Care Team Attending Physician - Luis [...] (05/03/2022), left total hip arthroplasty (01/30/2018), Cystoscopy (12/13/2017),lumbar medial branch block (11/21/2017), Facet Medial Branch [...] Where: [facility] [address] , [place] [id number] Medications What How Much When Instructions New ciprofloxacin (Cipro 500 mg Tab) 1 Tablets By Mouth Every day take one tab day before procedureand one tab after procedure Pickup at [facility] Unchanged enzalutamide (enzalutamide 40 mg oral capsule) 4 Capsules By Mouth Every day Duration: 90Days Unchanged tamsulosin (Flomax 0.4 mg Cap) 1 [...] physician if questions or concerns Pharmacy Information [facility]: [address] [place], [place] [phone] Medications and Immunizations Administered Given Lupron Depot [...] An abnormality in the (more content not included)...NormalFisher Holy Cross HospitalUrology Office/Clinic Noteon 37-51-1725Fvhibos Office/Clinic NoteUrology Office/Clinic Note Chief Complaint 6mo f/u & [...] x 1 core 9% of core involvement. [place] 7 (3+4) x 1 core, 35% of [...] Cysto 12/2017. CT AP w con 12/24/23 TB - No suspicious findings. CT AP w con 01/27/24 [facility] - Unremarkable bladder. Prostate seeds present. Irregular circumferentialwall thickening of the distal sigmoid colon and [...] With When Contact Information Luis GARCIA MD, [facility] [address] [place] [address] [phone] Additional Instructi (more content not included)...[facility] Osteopathic ClinicComment on above:Result Comment: Electronically Signed By: Luis GARCIA MD\.br\Date and Time Signed: 01/30/24 10:58 EST\.br\Electronically Co- Signed By: Sarah Beth Greene\.br\Date and Time Co-Signed: 01/30/24 10:53 ESTBlood Urea Nitrogenon 96-63-9171Qwru nitrogen [Mass/Vol]20 mg/dLNormale [facility] Physician GroupComment on above:Performed By: #### CREAT, BUN #### [facility] [address] [place] [address] USACT abdomen pelvis w conon 32-79-9229QC abdomen pelvis w [facility] [place] [address] [place] [address] CT Scan Report Signed Patient: Park Guidry MR#: [id number] : 1940 Acct:[id number] Age/Sex: 83 / M ADM Date: 01/27/24 Loc: Room: Type: [facility] Attending Dr: Lars Avelar MD Copies to: Lars Avelar MD Ordering Provider: Lars Avelar MD Date of Service: 01/27/24 CT/CT chest w con: Giant rectal ulcer, 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 Comment on above:Performed By: #### CREAT, BUN #### [facility] [address] [place], [place] [address] USACreatinine Clr Calc Gmrkduak79.87NoUNC Health Appalachian Physician [facility] HospitalComment on above:Result Comment: PERFORMED BY: [place] [address] PATHOLOGIST CUFF TURNER PATTY ZHENG M.D.Performed By: #### CREAT, BUN #### [place] [id number] USAGFR/1.73 sq M.predicted MDRD (S/P/Bld) [Vol rate/Area] mL/min/{1.73_m2}NormalThe [facility] Physician [facility] HospitalComment on above:Performed By: #### CREAT, BUN #### [place] [id number] USACreatinine [Mass/volume] in Serum or PlasmaOrdered By: Lars Avelar on 45-67-6600Xabwbzeahb [Mass/Vol]Creatinine [Mass/volume] in Serum or Plasma0.70-1.30[facility] HospitalNo Panel InformationOrdered By: Lars Avelar on 41-55-2035Llejxknia GFR (CKD-EPI)> 60.0 mL/MinPromedica Bay Park HospitalPharmacy Creatinine Clearance (Chem53.87[facility] HospitalMiscellaneous Pathology TestSee commentPromedica Bay Park HospitalComment on above:See report. Scanned copy available in EMR. Pathology Request for Lab Corpon [id number] Request for Lab CorpNormal The Washington Health SystemComment on above:Order Comment: PATHOLOGY GI SPECIMENResult Comment: See report. Scanned copy available in EMR. PERFORMED BY: [address] [address] PATHOLOGIST CUFF TURNER PATTY ZHENG M.D.Performed By: #### PATH TO [facility] #### [facility] [address] [place] [id number] USAUrea nitrogen [Mass/volume] in Serum or PlasmaOrdered By: Lars Avelar on 66-30-4317Pesn nitrogen [Mass/Vol]Urea nitrogen [Mass/volume] in Serum or Plasma7-[facility] HospitalNo Panel Informationon 71-70-4247Gpmv Prostate Specific Antigen<0.02 ng/mLN/[facility] HospitalComment on above:Tequila ECLIA methodology.Prostate Specific Antigen Total <0.1 ng/mL0.0-4.0[facility] HospitalComment on above:Tequila ECLIA methodology.According to the [place] [employer], Serum PSAshould decrease and remain at undetectable levels afterradical prostatectomy. The AUA defines biochemicalrecurrence as an initial PSA value 0.2 ng/mL or greaterfollowed by a subsequent confirmatory PSA value 0.2 ng/mLor greater. Values obtained with different assay methods orkits cannot be used interchangeably. Results cannot beinterpreted as absolute evidence of the presence or absenceof malignant disease.Serum or plasma free prostate specific antigen (PSA)/total PSA ratioon 74-32-1712Lkoy PSA/Total PSA [Mass fraction] Serum or plasma free prostate specific antigen (PSA)/total PSA ratio.[facility] HospitalComment on above:Unable to calculate result since non- numeric resultobtained for component test.The table below lists the probability of prostate cancer formen with non-suspicious FERN results and total PSA between4 and 10 ng/mL, by patient age (Alex et al, DIONNE 1998,279:1542). % Free PSA 50-64 yr 65-75 yr 0.00-10.00% 56% 55% 10.01-15.00% 24% 35% 15.01-20.00% 17% 23% 20.01-25.00% 10% 20% >25.00% 5% 9%Pleasenote: Alex et al did not make specific recommendations regarding the use of percent free PSA for any other population of men.Performed at: [facility] Lab[address] [id number] Director: Yoseph Cowan PhD, Phone: [phone] Panel InformationOrdered By: Alpesh Dunn on 12-07-2023E coli Shiga Toxin EIA [facility] Hospitalalmonella/Shigella ScreenPromedica Bay Park HospitalNo Panel Informationon 81-59-6758Dxmsoinqssl difficile (PCR)(LAB) NegativePromedica Bay Park HospitalMiscellaneous Test CommentSee comment [facility] HospitalComment on above:Specimen Source: ST - Stool - Stool - 700.100Stool Campylobacter Culture Res 1\R\ Campylobacter Culture\R\ No Campylobacter species isolated.[facility] HospitalComment on above:[facility],XR FEMUR RIGHT (MIN 2 VIEWS)on 28-42-0958QB FEMUR RIGHT (MIN 2 VIEWS)History: Right femur IMN Comparison: 05/19/2023 Findings: 2 [...] proximal screw is almost 2/3 displaced. Otherwise alignmentis well-maintained. Prior retained hardware from previous ORIF [...] Signed by: Florian Sanchez DO 11/14/23 Final resultNormalMercy Surprise Valley Community HospitalAmbulatory Visit Summaryon 62-97-8292Jssfxjddoi Visit SummaryAmbulatory Visit Summary PEPITONAVJOTJASWINDEREmiPARK :1940 Visit Date:08/15/2023 Ambulatory Visit Instructions Your [...] (05/03/2022), left total hip arthroplasty (01/30/2018), Cystoscopy (12/13/2017),lumbar medial branch block (11/21/2017), Facet Medial Branch [...] Follow-Up Appointments Tuesday 11:30 AM EDT Where: [facility] Tuesday 11:30 AM EDT Where: [facility] Tuesday 10:00 AM EDT Where: [facility] 2023 11:30 AM EDT Where: [facility] Tuesday 11:30 AM EDT Where: [facility] 2023 10:45 AM EDT Where: [facility] Tuesday 11:15 AM EDT Where: [facility] You Need to Schedule the Following Appointments Follow Up with JOSE LYNN, Luis No, URL When: Comments: 6 mos w/ PSA and Lupron Where: [facility] [address] , [place] [phone] Medications What How Much When Instructions Unchanged [...] in the body a (more content not included)...[facility] ClinicUrology Office/Clinic Noteon 69-22-9020Jrrmbjl Office/Clinic NoteUrology Office/Clinic Note Chief Complaint 6m PSA & [...] x 1 core 9% of core involvement. [place] 7 (3+4) x 1 core, 35% of [...] pt to stop taking 2mg dosage given nosx improvement. Pt is agreeable. -Decrease Tolterodine ER [...] [address], [place] [address] [phone] Additional Instructions: 6 mos w/ PSA and Lupron Patient Education Hormone Suppression Therapy for Prostate Cancer Sarah Beth Johnson, personally scribed for Dr. Garcia on 08/15/2023 [...] (05/03/2022), left total hip arthroplasty (01/30/2018), Cystoscopy (12/13/2017),lumbar medial branch block (11/21/2017), Facet Medial Branch Block (05/30/2017), Brachytherapy (12/23/2016), Transrectal biopsy of prostate using ultrasound (US) guidance (08/24/2016), left total knee arthroplasty (03/05/2013), Cleft palate repair, Knee arthroplasty, left total knee, OPEN REDUCCTION RIGHT FEMUR, rt total knee. M (more content not included)...[facility] ClinicComment on above:Result Comment: Electronically Signed By: Luis GARCIA MD\.br\Date and Time Signed: 08/15/23 10:34 EDT\.br\Electronically Co-Signed By: Sarah Beth Greene\.br\Date and Time Co-Signed: 08/15/23 10:32 EDTPT - Otheron [id number] - OtherSpoke with pt by phone. Pt reports seeing his surgeon yesterday and having a 5 screw removed from his right hip while in the office. Pt states this had loosened at some point and this was the cause of his increased pain. Pt requests to return to PT on 08/09/23 and would like to keep activity light.[facility] ClinicPT - Otheron [id number] - OtherPt called to inform PT that he is scheduled to see Dr Mckeon next Tuesday for a consult for his continued right hip pain.[facility] ClinicNonvisit Note - PTon 07-25-2023 Nonvisit Note - PTPt called and left voicemail to cancel PT for today and his upcoming visits. PT phoned pt back and discussed pt's pain. Pt reports high pain levels 9.5/10 and states he is unable to do much due to his hip pain. Pt wants to get into see Dr. Cosme for an x-ray since his surgical ortho appointment isn' t for a few more weeks. Pt states he is using Tylenol and heat. States he is not getting around very well. Visit cancelled this date and for the next 2 weeks. Pt to contact PT after appointment with ortho. Pt encouraged to trial ice to hip if pain levels are above 8/10 and monitor if this helps his pain reports.[facility] ClinicGlucose Glucometer (BldC) [Mass/Vol]Ordered By: Marc Mckinney on 49-12-3647Kgpaexc [Mass/Vol]115 mg/dLPromedica Bay Park HospitalComment on above:Random Glucose Reference Range is dependent on time and content of last meal. Glucose of more than 200 mg/dL in a nonstressed, ambulatory subject supports the diagnosis of Diabetes Mellitus.Basophils Auto (Bld) [#/Vol]Ordered By: Ashlyn Donato on 84-27-8574Ffhnyqfsl (Bld) [#/Vol]0.1 10*3/uL0.0-0.2 [facility] HospitalBasophils/100 WBC Auto (Bld)Ordered By: Ashlyn Donato on 84-78-7177Ujlifqftr/100 WBC (Bld)1.2 %.[facility] HospitalCalcium [Mass/volume] in Serum or PlasmaOrdered By: Ashlyn Donato on 62-09-0332Nnkujtx [Mass/Vol]8.5 mg/dL8.6-10.3FGrand Lake Joint Township District [facility] Hospital Carbon dioxide, total [Moles/volume] in Serum or PlasmaOrdered By: Ashlyn Donato on 98-17-1416BN7 [Moles/Vol]23.3 mmol/L21.0-31.0[facility] HospitalChloride [Moles/volume] in Serum or PlasmaOrdered By: Ashlyn Donato on 79-97-9838Phdmwbts [Moles/Vol]105 mmol/Q10-517RztgwqrrmPromedica Bay Park HospitalCreatinine [Mass/volume] in Serum or PlasmaOrdered By: Ashlyn Donato on 00-52-8111Jdghwxsqll [Mass/Vol]0.71 mg/dL0.70-1.30[facility] HospitalEosinophils Auto (Bld) [#/Vol]Ordered By: Ashlyn Donato on 38-27-9949Cctnvorabvi (Bld) [#/Vol]0.4 10*3/uL0.0-0.45[facility] HospitalEosinophils/100 WBC Auto (Bld)Ordered By: Ashlyn Donato on 11-69-1813Fpocaqpxupf/100 WBC (Bld)3.8 %.[facility] HospitalErythrocyte distribution width Auto (RBC) [Ratio]Ordered By: Ashlyn Donato on 38-17-9456Nszknhvxelv distribution width (RBC) [Ratio]14.0 % 12.0-14.8[facility] HospitalGlucose [Mass/volume] in Serum or PlasmaOrdered By: Ashlyn Donato on 03-03-0057Vqqwnfa [Mass/Vol]102 mg/dL 70-100[facility] HospitalComment on above:ADA recommended reference rangeRandom Glucose Reference Range is dependent on time and content of last meal. Glucose of more than 200 mg/dL in a nonstressed, ambulatory subject supports the diagnosisof Diabetes Mellitus.Hematocrit Auto (Bld) [Volume fraction]Ordered By: Ashlyn Donato on 48-55-4738Ehkmaomfvd (Bld) [Volume fraction]30.8 %38.8-50.0[facility] HospitalHemoglobin [Mass/volume] in BloodOrdered By: Ashlyn Donato on 30-26-8173Ebmqoiagss (Bld) [Mass/Vol]10.2 g/dL13.0-17.0[facility] HospitalLeukocytes [#/volume] corrected for nucleated erythrocytes in Blood by Automated coun Ordered By: Ashlyn Donato on 71-09-9920YUC corrected for nucl RBC Auto (Bld) [#/Vol]10.3 10*3/uL4.1-10.5FGrand Lake Joint Township District Memorial HospitalLymphocytes Auto (Bld) [#/Vol]Ordered By: Ashlyn Donato on 22-10-4017Lccxtydtczl (Bld) [#/Vol] 1.0 10*3/uL1.00-4.8[facility] HospitalLymphocytes/100 WBC Auto (Bld)Ordered By: Ashlyn Donato on 13-47-0320Tzirubbegxm/100 WBC (Bld)9.9 %. [facility] CenterH Auto (RBC) [Entitic mass]Ordered By: Ashlyn Donato on 52-04-5280EZB (RBC) [Entitic mass]30.0 pg27.5-35.2FGrand Lake Joint Township District Memorial HospitalMCHC Auto (RBC) [Mass/Vol]Ordered By: Ashlyn Donato on 09-48-1985KPEE (RBC) [Mass/Vol]33.2 g/dL32.5-35.6FGrand Lake Joint Township District Memorial HospitalMCV Auto (RBC) [Entitic vol]Ordered By: Ashlyn Donato on 79-36-6176TWM (RBC) [Entitic vol]90.4 fL83.5-101Prom[facility] HospitalMonocytes Auto (Bld) [#/Vol]Ordered By: Ashlyn Donato on 21-41-9095Rlnhaplzt (Bld) [#/Vol]1.1 10*3/uL0.0-0.8[facility] HospitalMonocytes/100 WBC Auto (Bld)Ordered By: Ashlyn Donato on 03-10-2038Hrukbqhgd/100 WBC (Bld)10.6 %. [facility] HospitalNeutrophils Auto (Bld) [#/Vol]Ordered By: Ashlyn Donato on 12-35-8193Nkfeqgzyrjf (Bld) [#/Vol]7.7 10*3/uL1.8-7.7FGrand Lake Joint Township District Memorial HospitalNeutrophils/100 WBC Auto (Bld)Ordered By: Ashlyn Donato on 26-47-1805Ssshmwasbuv/100 WBC (Bld)74.5 %.[facility] HospitalNo Panel InformationOrdered By: Ashlyn Donato on 01-29-2023 Estimated GFR (CKD-EPI)> 60.0 mL/MinPromedica Bay Park HospitalPharmacy Creatinine Clearance (Chem73.17[facility] HospitalNucleated erythrocytes [Presence] in Blood by Automated countOrdered By: Ashlyn Donato on 07-39-5253Vevzvfjir RBC Auto Ql (Bld)0.1 /100{WBC}0-0.5FGrand Lake Joint Township District Memorial HospitalPlatelet mean volume Auto (Bld) [Entitic vol]Ordered By: Ashlyn Donato on 02-37-3672Fppzheho mean volume (Bld) [Entitic vol]9.0 fL6.6-10.1 [facility] HospitalPlatelets Auto (Bld) [#/Vol]Ordered By: Ashlyn Donato on 11-63-7212Uzuzoisjr (Bld) [#/Vol]353 10*3/uR806-797YisqdhugtPromedica Bay Park HospitalPotassium [Moles/volume] in Serum or PlasmaOrdered By: Ashlyn Donato on 88-11-1654Owajnsaly [Moles/Vol]4.2 mmol/L3.5-5.1FGrand Lake Joint Township District Memorial HospitalRBC Auto (Bld) [#/Vol]Ordered By: Ashlyn Donato on 64-49-1495OLH (Bld) [#/Vol]3.41 10*6/uL3.90-5.60[facility] Memorial Hospitalerum or plasma anion gap determinationOrdered By: Ashlyn Donato on 44-57-5363Zgerh gap [Moles/Vol]13.9 mmol/L6.0-15.0[facility] Hospitalodium [Moles/volume] in Serum or PlasmaOrdered By: Ashlyn Donato on 19-88-7220Wfpcoe [Moles/Vol]138 mmol/E140-891BtsafsxcdPromedica Bay Park Hospital Urea nitrogen [Mass/volume] in Serum or PlasmaOrdered By: Ashlyn Donato on 17-12-1678Uorc nitrogen [Mass/Vol]22 mg/dL7-25[facility] WBC Auto (Bld) [#/Vol]Ordered By: Ashlyn Donato on 62-31-0005WPV (Bld) [#/Vol]10.3 10*3/uL4.1-10.5FGrand Lake Joint Township District Memorial HospitalGlucose mean value [Mass/volume] in Blood Estimated from glycated hemoglobinOrdered By: Ashlyn Donato on 08-97-4947Xljvair glucose Estimated from glycated hemoglobin (Bld) [Mass/Vol]134 mg/dLPromedica Bay Park HospitalHemoglobin A1c percentage Ordered By: Ashlyn Donato on 41-43-8726IhF6y (Bld) [Mass fraction]6.3 % 4.3-5.6FGrand Lake Joint Township District Memorial HospitalComment on above:Increased risk for diabetes: 5.7 - 6.4diabetes: >6.4glycemic control for adults with diabetes: &l t;7.0Alanine aminotransferase [Enzymatic activity/volume] in Serum or Plasma Ordered By: Marc Mckinney on 42-60-6940BOT [Catalytic activity/Vol]4 U/L 7-52[facility] HospitalAlbumin [Mass/volume] in Serum or Plasma by Bromocresol green (BCG) dye binding methoOrdered By: Marc Mckinney on 07-41-8045Ubrvmlo BCG dye [Mass/Vol]3.0 g/dL3.5-5.7FGrand Lake Joint Township District Memorial HospitalAlkaline phosphatase [Enzymatic activity/volume] in Serum or PlasmaOrdered By: Marc Mckinney on 55-31-1540NCC [Catalytic activity/Vol]64 U/L34-104 [facility] HospitalAspartate aminotransferase [Enzymatic activity/volume] in Serum or PlasmaOrdered By: Marc Mckinney on 06-59-6174XFX [Catalytic activity/Vol]12 U/Q75-94UmjfderlcPromedica Bay Park HospitalBilirubin.total [Mass/volume] in Serum or PlasmaOrdered By: Marc Mckinney on 91-09-9655Hudjyrszg [Mass/Vol]0.8 mg/dL0.3-1.0[facility] HospitalGlobulin Calc (S) [Mass/Vol]Ordered By: Marc Mckinney on 52-51-0556Zaxlqzux (S) [Mass/Vol]2.9 g/dLPromedica Bay Park Hospital Prealbumin [Mass/volume] in Serum or PlasmaOrdered By: Marc Mckinney on 83-15-0524Jauvshgrup [Mass/Vol]8.4 mg/dL17.0-34.0[facility] HospitalProtein [Mass/volume] in Serum or PlasmaOrdered By: Marc Mckinney on 08-01-5782Phfvipi [Mass/Vol]5.9 g/dL6.4-8.9[facility] Serum or plasma albumin/globulin mass ratioOrdered By: Marc Mckinney on 21-56-7340Gisywgd/Globulin [Mass ratio]1.0 {ratio}[facility] HospitalTESTOSTERONE, TOTALon 55-83-1908Ewdcpmokkvzq [Mass/Vol]ng/dLCritically low 264-916The [facility] HospitalComment on above:Result Comment: Adult male reference interval is based on a population of healthy nonobese males (BMI <30) between 19 and 39 years old. Mars, et.al. JCEM 2017,102;1631-8651. PMID: 88810710.Performed By: #### TESTTOT #### [facility] [address] [place] [address] Dr. Adrianna Champion REX DOP LEG RTon 94-00-2804UG REX DOP LEG RTEXAMINATION: US REX DOP LEG RT HISTORY: Pain of right lower leg COMPARISON: No relevant comparison available. FINDINGS: REGION: Right lower extremity THROMBI: None. COMPRESSIBILITY: Normal compressibility. FLOW: Normal waveform and antegrade flow between 5 and 20 cm/s. OTHER: Mild edema. IMPRESSION: 1. No deep vein thrombus within the right lower extremity. Electronically authenticated by: DANDY SANCHEZ Date: 2021-08-11 17:55NormalThe [facility] HospitalCB AUTO DIFFon 26-83-4392ICLT #0.0 103/ulNormal0.0-0.1The [facility] HospitalComment on above:Performed By: #### CBC #### [facility] [address] [address] [address] Adrianna Gomezphils/100 WBC (Bld)0.5 %Normal0.2-2.0[facility] Comment on above:Performed By: #### CBC #### [facility] [address] [place] [address] Dr. Adrianna Ferrari #0.5 103/ulNormal0.0-0.7The [facility] HospitalComment on above: Performed By: #### CBC #### [facility] [address] [address] [address] Adrianna Escobarosinophils/100 WBC (Bld)6.2 %Normal0.9-7.0[facility] Comment on above:Performed By: #### CBC #### [facility] [address] [place] [address] Dr. Adrianna Escobarrythrocyte distribution width (RBC) [Ratio]13.6 %Vkfwmx14.0-15.0 The [facility] HospitalComment on above:Performed By: #### CBC #### [facility] [address] [place] [address] Dr. Adrianna LuevanoHematocrit (Bld) [Volume fraction]45.9 %Ayztyx07.0-54.0The [facility] HospitalComment on above:Performed By: #### CBC #### [facility] [address] [place] [address] Dr. Adrianna LuevanoHemoglobin (Bld) [Mass/Vol]15.2 g/tCDcnrvh22.0-18.0The [facility] HospitalComment on above:Performed By: #### CBC #### [facility] [address] [place] [address] Dr. Adrianna Araujo #0.04 10e3/ulCritically high0.00-0.03[facility] Comment on above:Performed By: #### CBC #### [facility] [address] [place] [address] Dr. Adrianna Araujo %0.5 %Normal0.0-0.5The [facility] HospitalComment on above: Performed By: #### CBC #### [facility] [address] [place] [address] Dr. Adrianna CastroH #1.2 103/ulNormal1.2-3.8The [facility] HospitalComment on above:Performed By: #### CBC #### [facility] [address] [place] [address] Dr. Adrianna Candelariamphocytes/100 WBC (Bld)13.7 %Critically low20.5-60.0The [facility] HospitalComment on above:Performed By: #### CBC #### [facility] [address] [address] [address] Adrianna Carrillo DIFF REQNONormalThe [facility] HospitalComment on above: Performed By: #### CBC #### [facility] [address] [place] [address] Dr. Adrianna Maciel (RBC) [Entitic mass]29.9 bjFwgrtp12.9-34.0The [place] HospitalComment on above:Performed By: #### CBC #### [facility] [address] [place] [address] Dr. Adrianna Maciel (RBC) [Mass/Vol]33.1 g/oDIgfrcs95.9-35.2The [facility] HospitalComment on above:Performed By: #### CBC #### [facility] [address] [place] [address] Dr. Adrianna Maciel (RBC) [Entitic vol]90.4 cMAvxhbm26.0-94.0The [facility] HospitalComment on above:Performed By: #### CBC #### [facility] [address] [place] [address] Dr. Adrianna Sapp #1.1 103/ulCritically high0.3-0.8[facility] Comment on above:Performed By: #### CBC #### [facility] [address] [place] [address] Dr. Adrianna Tapiaocytes/100 WBC (Bld)12.6 %Critically high1.7-12.0The [facility] HospitalComment on above:Performed By: #### CBC #### [facility] [address] [place] [address] Dr. Adrianna Solano #5.7 103/ulNormal1.4-6.5The [facility] HospitalComment on above:Performed By: #### CBC #### [facility] [address] [place] [address] Dr. Adrianna Mitchellutrophils/100 WBC (Bld)66.5 %Elhllq70.0-75.0The [facility] HospitalComment on above:Performed By: #### CBC #### [facility] [address] [place] [address] Dr. Adrianna Aquinolet mean volume (Bld) [Entitic vol]11.3 fLNormal9.5-13.5The [facility] HospitalComment on above:Performed By: #### CBC #### [facility] [address] [place] [address] Dr. Adrianna LuevanoPLT183 103/dyXoweqv159-352Jth [facility] HospitalComment on above: Performed By: #### CBC #### [facility] [address] [place] [address] Dr. Adrianna LuevanoRBC5.08 106/ulNormal4.70-6.10The [facility] HospitalComment on above:Performed By: #### CBC #### [facility] [address] [place] [address] Dr. Adrianna LuevanoWBC8.6 103/ulNormal4.0-11.0The [facility] HospitalComment on above: Performed By: #### CBC #### [facility] [address] [place] [address] Dr. Adrianna Montalvo CHEM 8 (BAS METB)on 74-42-9953Ukerm gap [Moles/Vol]13.4 mmol/LNormalThe [facility] HospitalComment on above:Performed By: #### BMP #### [facility] [address] [place] [address] Dr. Adrianna LuevanoCalcium [Mass/Vol]8.9 mg/dLNormal8.5-10.1[facility] Comment on above:Performed By: #### BMP #### [facility] [address] [place] [address] Dr. Adrianna LuevanoChloride [Moles/Vol]106 mmol/NVglpfz25-756Osk [facility] Comment on above:Performed By: #### BMP #### [facility] [address] [place] [address] Dr. Yilan ChangCO2 [Moles/Vol]23.1 mmol/GBxtbbb82.0-32.0[facility] Comment on above:Performed By: #### BMP #### [facility] [address] [place] [address] Dr. Adrianna LuevanoCreatinine [Mass/Vol]0.87 mg/dLNormal0.70-1.30The [facility] HospitalComment on above:Performed By: #### BMP #### [facility] [address] [address] [address] Adrianna EscobarGFR-AF PORTUGUESE>60Normal>=60The [facility] HospitalComment on above:Performed By: #### BMP #### [facility] [address] [place] [address] Dr. Adrianna EscobarGFR-NON AF PORTUGUESE>60Normal>=60The [facility] HospitalComment on above:Performed By: #### BMP #### [facility] [address] [place] [address] Dr. Adrianna LuevanoGlucose [Mass/Vol]104 mg/kUPjyinc45-889VwhBlanchard Valley Health System Comment on above:Performed By: #### BMP #### [facility] [address] [place] [address] Dr. Adrianna LuveanoPotassium [Moles/Vol]4.5 mmol/LNormal3.5-5.1[facility] Comment on above:Performed By: #### BMP #### [facility] [address] [place] [address] Dr. Adrianna LuevanoSodium [Moles/Vol]138 mmol/WKkwltz674-856LslBlanchard Valley Health System Comment on above:Performed By: #### BMP #### [facility] [address] [place] [address] Dr. Adrianna LuevanoUrea nitrogen [Mass/Vol]22.0 mg/dLCritically high7.0-18.0The [facility] HospitalComment on above:Performed By: #### BMP #### [facility] [address] [place] [address] Dr. Adrianna LuevanoUrea nitrogen/Creatinine [Mass ratio]25.3 mg/mgNormalThe [facility] HospitalComment on above:Performed By: #### BMP #### [facility] [address] [address] [address] Adrianna LuevanoXR CHEST 2 Von 50-74-2576QO CHEST 2 VEXAMINATION: XR CHEST 2 V HISTORY: Chronic cough COMPARISON: No [...] Electronically authenticated by: DANDY SANCHEZ Date: 2021-05-20 15:58[facility] Vital Signs Date TimeVital SignValuePerforming PdqzvzzsvQgzopwde61-86-5351 16:02-0400 Diastolic blood fxoiavjf16 mm[Hg]Todd Caballero MD Work Phone: [facility]04-02-2025 16:02-0400Systolic blood mm[Hg]Todd Caballero MD Work Phone: [facility]02-25-2025 07:24-0500Body wwidqy227.1 cmBenjamin Ball DO Work Phone: [facility]02-25-2025 07:24-0500 Body .64 kgBenjamin Ball DO Work Phone: [facility]02-21-2025 14:33-0500 Body nawllcwsmbm42.81 [degF]Donna Singh MD Work Phone: [facility]02-21-2025 14:33-0500Diastolic blood mm[Hg]Donna Singh MD Work Phone: [facility]02-21-2025 14:33-0500Heart rate83 /min Donna Singh MD Work Phone: [facility]02-21-2025 14:33-6565JnA6% (BldA) [Mass fraction]97 %Donna Singh MD Work Phone: [facility]02-21-2025 14:33-0500Systolic blood cvjtxgas328 mm[Hg]Donna Singh MD Work Phone: [facility]01-24-2025 09:30-0500Diastolic blood qqkknlqi35 mm[Hg]Alpesh Ball DO Work Phone: [phone] [place], [place] 5004701-24-2025 09:30-0500 Heart rate74 /minBenjamin Ball DO Work Phone: [phone]01-24-2025 09:30-0500 Respiratory rate16 /minBenjamin Ball DO Work Phone: [phone] [place], [place] 3213101-24-2025 09:30-0500 SaO2% (BldA) [Mass fraction]98 %Alpesh Ball DO Work Phone: [phone] [place], [place] 5004701-24-2025 09:30-0500 Systolic blood spwotlun527 mm[Hg]Alpesh Ball DO Work Phone: [phone] [place], [place] 32[address]101-24-2025 07:35-0500 Body iycohx870.18 cmBenjamin Ball DO Work Phone: [phone] [place], [place] 3213101-24-2025 07:35-0500 Body .73 kgBenjamin Ball DO Work Phone: [phone] [place], [place] 5004712-20-2024 13:36-0500 Diastolic blood dkvhdzvy72 mm[Hg]Alpesh Ball DO Work Phone: [phone] [place], [place] 5004712-20-2024 13:36-0500 Heart rate80 /minBenjamin Ball DO Work Phone: [phone] [place], [place] 5004712-20-2024 13:36-0500 Respiratory rate16 /minBenjamin Ball DO Work Phone: [phone] [place], [place] 5004712-20-2024 13:36-0500 SaO2% (BldA) [Mass fraction]95 %Alpesh Ball DO Work Phone: [phone] [place], [place] 5004712-20-2024 13:36-0500 Systolic blood mm[Hg]Alpesh Ball DO Work Phone: [phone] [place], [place] 5004712-20-2024 11:20-0500 Body npyxax953.72 cmBenjamin Ball DO Work Phone: [phone] [place], [place] 5004712-20-2024 11:20-0500 Body pvdpki46.64 kgBenjamin Ball DO Work Phone: [phone] [place], [place] 32[address]111-11-2024 11:30-0500 Body .18 cmBenjamin Ball DO Work Phone: [phone] [place], [place] 3213111-11-2024 11:30-0500 Body mass index (BMI) [Ratio]28.1 kg/c4Fvhsvyux Ball DO Work Phone: [phone] [place], [place] 32[address]111-11-2024 11:30-0500 Body .64 kgBenjamin Ball DO Work Phone: [phone] [place], [place] 3213111-11-2024 11:30-0500 Diastolic blood innnndli19 mm[Hg]Alpesh Ball DO Work Phone: [phone] [place], [place] 3213111-11-2024 11:30-0500 Heart rate83 /minBenjamin Ball DO Work Phone: [phone] [place], [place] 5004711-11-2024 11:30-0500 Respiratory rate12 /minBenjamin Ball DO Work Phone: [phone] [place], [place] 5004711-11-2024 11:30-0500 Systolic blood amghmssg183 mm[Hg]Alpesh Ball DO Work Phone: [phone])[address] [place], [place] 32[address]101-03-2024 11:30-0500 Body thxziz512.18 cmBenjamin Ball Other [employer] Other 01-03-2024 11:30-0500Body mass index (BMI) [Ratio] 30.48 kg/a5Qqjmlnue Ball Other [employer] Other 01-03-2024 11:30-0500Body .27 kgBenjamin Ball Other [employer] Other 01-03-2024 11:30-0500Diastolic blood alwwfwve48 mm[Hg] Alpesh Ball Other [employer] Other 01-03-2024 11:30-0500Respiratory rate16 /minBenjamin Ball Other [employer] Other 01-03-2024 11:30-0500Systolic blood ytxpzazl546 mm[Hg] Alpesh Ball Other [facility] [employer] Other [id number] 08:31-0500Body vnvlteoevem04.8 [degF]DO Alpesh Ball Work Phone: [phone]12-27-2023 08:31-0500 Diastolic blood rmoipadk99 mm[Hg]DO Alpesh Ball Work Phone: [facility]12-27-2023 08:31-0500 Heart rate81 /minDO Alpesh Ball Work Phone: [phone]12-27-2023 08:31-0500 Respiratory rate17 /minDO Alpesh Ball Work Phone: [phone]12-27-2023 08:31-0500 SaO2% (BldA) [Mass fraction]96 %DO Alpesh Ball Work Phone: [phone]12-27-2023 08:31-0500 Systolic blood rgfweivp311 mm[Hg]DO Alpesh Ball Work Phone: [phone]12-27-2023 06:54-0500 Body .18 cmDO Alpesh Ball Work Phone: [facility]12-24-2023 05:44-0500 Body deojjq81.5 kgDO Alpesh Ball Work Phone: [phone]12-14-2023 16:00-0500 Inhaled oxygen flow rate2 L/minDO Alpesh Ball Work Phone: [phone]11-17-2023 09:00-0500 Body wqcnum695.18 cmBenjamin Ball Other [employer] Other 11-17-2023 09:00-0500Body mass index (BMI) [Ratio] 31.13 kg/o7Ugsklrpf Ball Other [employer] Other 11-17-2023 09:00-0500Body qelvvi69.18 kgBenjamin Ball Other [employer] Other 11-17-2023 09:00-0500Diastolic blood ovmwfrqv47 mm[Hg] Alpesh Ball Other [employer] Other 11-17-2023 09:00-0500Respiratory rate16 /minBenjamin Ball Other [employer] Other 11-17-2023 09:00-0500Systolic blood yymqahoi567 mm[Hg] Alpesh Ball Other [employer] Other 10-18-2023 14:30-0400Body hyjcwm657.18 cmBenjamin Ball Other [employer] Other 10-18-2023 14:30-0400Body mass index (BMI) [Ratio] 31.04 kg/t8Allyjdzs Ball Other [employer] Other 10-18-2023 14:30-0400Body jnoeiy96.9 kgBenjamin Ball Other [employer] Other 10-18-2023 14:30-0400Diastolic blood suwwfiqw51 mm[Hg] Alpesh Ball Other [employer] Other 10-18-2023 14:30-0400Respiratory rate16 /minBenjamin Ball Other [employer] Other 10-18-2023 14:30-6173VlJ2% (BldA) [Mass fraction]97 % Alpesh Ball Other [employer] Other 10-18-2023 14:30-0400Systolic blood uzgxnybs473 mm[Hg] Alpesh Ball Other [employer] Other 05-17-2023 14:30-0400Body .18 cmBenjamin Ball Other [employer] Other 05-17-2023 14:30-0400Body mass index (BMI) [Ratio] 32.14 kg/q8Bfiadudg Ball Other [employer] Other 05-17-2023 14:30-0400Body ccidmx65.08 kgBenjamin Ball Other [employer] Other 05-17-2023 14:30-0400Diastolic blood gtufvraa66 mm[Hg] Alpesh Ball Other [employer] Other 05-17-2023 14:30-0400Respiratory rate16 /minBenjamin Ball Other [place] [employer] Other 05-17-2023 14:30-0400Systolic blood mm[Hg] Alpesh Dunn Other [facility] [employer] Other Encounters Encounter DateEncounter TypeCare ProviderFacilityStart: 90-15-7110bqyvbbcqef Luis GARCIAFacility:EU [place]vueStart: 07-20-2024 End: 91-08-6217dxaqcdywimEecawrd R WATERSFacility:CATHIE [facility] SystemueStart: 05-09-2024 End: 08-25-7998jyqqsgeugyOBZAB ROSENFacility:[facility]art: 05-09-2024 End: 58-65-7876Flowxtd encounter procedureTodd Caballero MD Work Phone: UrologyComment on above:Prostate cancer (HCC) (Primary Dx); Rectourethral fistula; Adverse effect of radiation, sequelaStart: 04-03-2024 End: 40-08-8750Tealurl encounter procedureBejessarturo Dunn DO Work Phone: [facility] Work Phone: Start: 04-03-2024 End: 73-93-4398tiettedtjgYdqibeyd Ball DO Work Phone: [facility] Work Phone: Start: 03-30-2024 End: 18-55-9082vcvzloadfoBDHMR ROSENFacility:[facility] Hospitaltart: 03-30-2024 End: 26-26-9148Ilfhrom encounter procedureDonna Singh MD Work Phone: Colorectal SurgeryComment on above:Rectal lesion (Primary Dx); Rectourethral fistula; Anorectal ulcerStart: 03-22-2024 End: 82-64-7888Jxtyfcilu encounterDanila Singh MD Work Phone: Colorectal SurgeryStart: 03-09-2024 End: 21-95-0399Sckelsnly encounterDonna Singh MD Work Phone: Colorectal SurgeryStart: 03-08-2024 End: 69-41-5112Zihezbnrn encounterDonna Singh MD Work Phone: Colorectal SurgeryComment on above:AppointmentStart: 03-06-2024 End: 85-63-5254Eavjswbtd encounterDonna Singh MD Work Phone: Colorectal SurgeryComment on above:AppointmentStart: 03-06-2024 End: 18-92-6555zkoycwmgdmPiwhrgn R WATERSFacility:EU [place]Start: 03-02-2024 Non-patient / Non-visitBenjamin Ball DO Work Phone: [facility] Work Phone: Start: 03-02-2024 End: 21-46-4260Immzyellc to same day surgery centerBenjamin Ball DO Work Phone: [facility] Work Phone: Start: 03-02-2024 End: 74-13-7114qmijpimqqvHlptcdpd Ball DO Work Phone: [facility] Work Phone: Start: 01-30-2024 End: 94-16-0157eqkxbjwznlIxzvzfo R WATERSFacility:EU [place]vueStart: 01-27-2024 Non-patient / Non-visitBenjamin Ball DO Work Phone: [facility] Work Phone: Start: 01-27-2024 End: 45-60-4228Xzmdbwtnx to same day surgery centerBenjamin Ball DO Work Phone: [facility] Work Phone: Start: 01-27-2024 End: 80-10-9385zeqozrimouUuub AsaadFacility:[facility] Start: 50-39-5186Hrg-patient / Non-visitBewilfredo Dunn DO Work Phone: [facility] Work Phone: Start: 12-19-2023 End: 57-12-2894Hhqsect encounter procedureBewilfredo Dunn DO Work Phone: [facility] Work Phone: Start: 76-86-7498Rrc-patient / Non-visitBenarturo Dunn DO Work Phone: [facility] Work Phone: Start: 08-15-2023 End: 97-34-6249xehocjchehVluimpc R WATERSFacility:CATHIE BellevueStart: 08-02-2023 End: 41-80-3682wzczedgtseLZJJ A [facility] Systemtart: 06-27-2023 End: 40-44-0375hobaqsncjdXwlaxcou Ball Other [employer] Other Start: 12-21-8241Lerlitopn encounterBewilfredo Dunn [facility] ClinicStart: 05-19-2023 End: 66-61-5556hbuxtorypqOMCP A [facility] Systemtart: 03-08-2023 End: 57-94-0963yufvcyipeiLAUZ A [facility] Systemtart: 02-09-2023 End: 09-60-2031auaxauffnbFupjdlsz Ball Other [employer] Other Start: 19-86-6407Vglovnddbpdl care manage srvc 14 day dischargeBewilfredo Dunn Medical ClinicStart: 02-03-2023 End: 57-76-7396nwtfqwqskfSikvjsob Ball Other [employer] Other Start: 95-39-1392Soofgcsnt encounterBenjamin BallFPG [facility] Medical ClinicStart: 01-20-2023 End: 93-44-0560irdyiuhsrqMgqhczhr Ball Other [facility] [employer] Other Start: 46-25-0524Vsfyoclne encounterBenjamin BallFPG [facility] Medical ClinicStart: 01-19-2023 End: 87-41-1033Imbfgqfvnt and management of inpatientDO Alpesh Ball Work Phone: [facility] Work Phone: Start: 12-24-2022 End: 44-01-4743vokvoknokjJrfxxpzf Ball Other [facility] [employer] Other Start: 63-17-9980Qwtktb outpatient visit 25 minutes Alpesh BallFPG Ball Medical ClinicStart: 12-22-2022 End: 35-51-2476nodhwksgjhKsbtotjy Ball Other [place] [employer] Other Start: 31-88-1540Eazkrhbql encounterBenjamin BallFPG Ball Medical ClinicStart: 11-24-2022 End: 31-05-2946iwtqwxrglyMxcdfisc Ball Other [facility] [employer] Other Start: 05-71-4267Albnxc outpatient visit 25 minutes Alpesh BallFPG [facility] Medical ClinicStart: 96-93-9656Cqhsbwavg encounterBenjamin BallFPG [facility] ClinicStart: 07-22-2022 End: 48-98-1892zsjxsxvijzYefslxmw Ball Other [facility] [employer] Other Start: 16-80-0225Sriizbwoi encounterBenjamin BallFPG [facility] Medical ClinicStart: 06-23-2022 End: 88-57-8483zxxgautxbxMqjdmqaa Ball Other [facility] [employer] Other Start: 79-80-6752Oqvpyiu encounter procedureBenjamin BallFPG [facility] Medical ClinicStart: 01-20-2022 End: 59-55-5222wrasvcvjafTL LUIS WATERSFacility:D1Istvh: 08-11-2021 End: 01-81-9903unjfnlnfuiMG ALPESH BALLFacility:C0Xpbkk: 07-22-2021 End: 05-69-0048irclcezkhoVI LUIS WATERSFacility:S4Jymla: 05-20-2021 End: 05-73-4195umrtoldrrpEF ALPESH DUNNFacility:H1 Procedures DateProcedureProcedure DetailPerforming ClinicianStart: 70-21-9946DDA of pelvis with contrastBenjamin Ball DO Work Phone: Start: 26-15-6014Abokdkwn fiberoptic sigmoidoscopy Alpesh Ball DO Work Phone: Start: 80-13-1763Okjhjqbf tomography of abdomen and pelvis with contrastBenjamin Ball DO Work Phone: Start: 11-55-0214JO of thorax with contrastBenjamin Ball DO Work Phone: Start: 64-67-7608ItqlmgbdwjzoaloadvcxkmkhvdZjaytwzk Ball DO Work Phone: Start: 12-07-2023E coli Shiga Toxin EIABenjamin Ball DO Work Phone: Start: 09-68-4027Atdntgkrot/Shigella ScreenBenjamin Ball DO Work Phone: Start: 63-89-0794WI of head without contrastDO Alpesh Ball Work Phone: Start: 25-48-1396Dzeco X-ray of right ribDO Alpesh Ball Work Phone: Start: 95-32-5766WHO screeningDR ALPESH BALLComment on above:Performed By: #### PSAD #### [facility] [address] [address] [address] Adrianna LuevanoStart: 68-28-5275GIL screeningDR ALPESH BALLComment on above: Performed By: #### PSAD #### [facility] [address] [address] [address] Adrianna Luevano Plan of Treatment DateCare ActivityDetailAuthorStart: 49-23-0760Whmai microalbumin profile DTaP,Tdap,Td Vaccine (3 - Td or Tdap)[facility]: 33-83-8862Horbitdl ScreeningDiabetes ScreeningFort Hamilton Hospitaltart: 03-30-2024 End: 34-09-8223Cxknnqv encounter odakjowgm01/21/2025 2:40 PM EST Office Visit Colorectal Surgery [address] [place] [address] Donna Singh MD [address] [place] [address] New Pt: Ulcer of Anus and rectum,Ref By: Dr. Shi Colorectal SurgeryComment on above:New Pt: Ulcer of Anus and rectum,Ref By: Dr. Wildetart: 05-21-1527WwkeuzcspProMedica Memorial Hospitaltart: 99-42-6184Outrjps Directive DiscussionAdvance Directive DiscussionFort Hamilton Hospitaltart: 08-10-0703ZwgsnwhywProMedica Memorial Hospitaltart: 78-60-2106Krazl-19 Vaccine ( season)Covid-19 Vaccine ( season)[facility]: 84-97-5311Oxzbk-19 Vaccine ( season)Covid-19 Vaccine ( season)[facility]: 73-07-0899Zsoiogdzg vaccinationInfluenza Vaccine (#1)[facility]: 68-51-9605IkhwhiwucProMedica Memorial Hospitaltart: 71-28-4302Qseopsbtljccia of prophylactic treatmentProMedica Memorial Hospitaltart: 57-98-9232Onnvrdho admissionProMedica Memorial Hospitaltart: 23-86-3929Jvaobslh to clinical allergistProMedica Memorial Hospitaltart: 49-36-0639GPP Vaccine (1 - 1-dose 75+ series)RSV Vaccine (1 - 1-dose 75+ series)[facility]: 66-55-1099Nnkollkjqeew Vaccine: 50+ (1 of 1 - PCV) Pneumococcal Vaccine: 50+ (1 of 1 - PCV)[facility]: 1988 Shingrix Vaccine (1 of 2)Shingrix Vaccine (1 of 2)[facility]: 94-42-9656Mqzzrviy ScreeningDiabetes ScreeningFort Hamilton Hospitaltart: 1959 Urine microalbumin profileDTaP,Tdap,Td Vaccine (1 - Tdap)[facility]tart: 22-47-2174Srngggb ScreeningAnxiety ScreeningCleParkview Health Bryan Hospitaltart: 1956 Depression ScreeningDepression ScreeningParma Community General Hospital Abdomen and Pelvis W contrast [facility] HospitalPatient EducationSelect [facility] Work Phone: Patient referralSelect [facility] Work Phone: [facility] Immunizations Immunization DateImmunizationNotesCare WupafpdnRcrjbdkl17-85-5502ojlikoipg virus vaccine, unspecified formulationDonna Singh MD Work Phone: [facility] HospitalGiphcf48-63-3020qemvfkoej, high dose seasonal, preservative-freeBenjamin Ball Other [place] [employer] Other 203844-25-8206zmztzrphl virus vaccine, unspecified formulationBenjamin Ball DO Work Phone: [facility]02-18-2021COVID-19 Vaccine Pfizer - Documentation Purposes OnlyBenjamin Ball Other [facility]01-26-2021COVID-19 Vaccine Pfizer - Documentation Purposes OnlyBenjamin Ball Other [facility]09-15-2020 pneumococcal polysaccharide vaccine, 23 valentBenjamin Ball Other [facility]11-03-2017influenza virus vaccine, split virus (incl. purified surface antigen)Alpesh Dunn Other [facility] [employer] Other 496498-55-1800ppdizlcpg virus vaccine, unspecified formulationBenjamin Ball DO Work Phone: [facility]10-26-2016influenza virus vaccine, split virus (incl. purified surface antigen)Alpesh Dunn Other [facility] [employer] Other 484145-58-3769plbtdfeha virus vaccine, unspecified formulationBenjamin Ball DO Work Phone: [facility]10-24-2016 pneumococcal conjugate vaccine, 13 valentBenjamin Ball Other [facility]05-20-2010 pneumococcal polysaccharide vaccine, 23 valentBenjamin Ball Other [facility] Payers DatePayer CategoryPayerPolicy [id number]-bja [id number] Health Insurance [id number] 2004Medicare [id number] [id number] 2004 [id number] [id number] [id number] 2.840.1.468409.3.57[id number] 2.840.1.802629.3.57[id number] 2.16840.1.585594.3.57[id number] 2.16840.1.069670.3.57[id number] 2.840.1.948804.3.57[id number] 2.16840.1.169225.3.57[id number] 2.0.1.081399.3.57[id number] 2.0.1.249321.3.57[id number] 2.0.1.225856.3.57[id number] 2.0.1.396808.3.57[id number] 2.840.1.662707.3.57[id number] 2.0.1.068683.3.57[id number] 2.840.1.4[id number] 2.0.1.833292.19UnknownAIra Davenport Memorial [id number] [id number]-[id number]-[id number] 2.16840.1.7[id number] 2.840.1.726371.3.579.2.531 [id number] 2.16.840.1.804653.3.579.2.531 Social History DateTypeDetailFacilityStart: 08-17-2017 End: 10-69-9229Sou Assigned At [facility] [employer] Other Start: 01-20-2023 End: 45-34-6003Xqbwyod smoking status NHISNever smoked tobacco (finding) [facility] Hospitaltart: 83-94-1252Sse Assigned At [facility]: 88-93-0908Npxvlib smoking status NHISEx- smoker (finding)[facility] Hospitaltart: 03-02-2024 End: 44-37-7575HscAizo (finding)[facility] Hospitaltart: 02-02-2017 End: 53-25-6330Eqkkuxr use and exposureFormer smokeless tobacco userFort Hamilton Hospitaltart: 08-17-2017 End: 52-60-4723Tveaifg of Social functionSelect Medical [facility]health Rehabilitation HospitalNational Score (1-100), lower number is lower riskNot on [facility] Hospitaltart: 85-43-9721Jzy assigned at [facility]Not on [facility] Goals DatePatient GoalDesired Activity/State Functional Status WpmjIobrdmesyqOxehoxTanunlrg71-72-2277Zyixzufnel statusPatient is Progressing Toward BaselineCoshocton [facility] Center Work Phone: Mental Status PvlsEucnpwenzcRzreveVqmzajcr99-04-0564Bcklcpbhp functionCognitive Status Patient at [facility] Work Phone: Clinical Notes 06-23-2022 to 07-20-2024 Note Date & QzfnFbhaCtcwkeyy09-44-0202 NotePatient Education Oncology Prostate Cancer The prostate is [...] such as a bone scan, CT scan, PETscan, or MRI. Stages of prostate cancer The stages of prostate cancer are as follows: ??? Stage 1 (I). At this stage, the cancer is found in the prostate only. The cancer is not visibleon imaging tests, and it is usually found [...] body. The higher the score, the greater thelikelihood that the cancer will spread. ??? Pj 6 or lower: This indicates that the cancer cells look similar to normal prostate cells (well differentiated). ??? Pj 7: This indicates that the cancer cells look somewhat similar to normal prostate cells (moderately differentiated). ??? [place] 8, 9, or 10: This indicates that [...] needles, seeds, wires, o (more content not included)...[facility]04-02-2025 NoteHNO ID: [id number] Author: TODD CABALLERO MD Service: ? Author Type: Physician Type: Progress Notes Filed: 05/09/2024 21:00 Note Text: [facility] UROLOGY NEW PATIENT CLINIC NOTE SERVICE DATE: 05/09/2024 NAME: Park Guidry REFERRED BY: Donna Singh [address] [id number] Consultation requested by Dr. Singh for an [...] outlet obstruction Todd Caballero MD Associate Staff [facility] [place] Department of UrologyMiravista Behavioral Health CenterIhaqvhrw65-58-8004 History of Present illness Narrative* Todd Caballero MD - 05/09/2024 4:15 PM EDT Images from the original note were not included. [facility] [place] UROLOGY NEW PATIENT CLINIC NOTE SERVICE DATE: 05/09/2024 NAME: Park Guidry REFERRED BY: Donna Singh [id number] [facility] [address] [address] Singh for an [...] generally managed with multiple staged procedures - firstfecal diversion +/- SPT if obstructive urinary tract [...] risk of UTI, urosepsis, abscesses, etc. Discussed thatgiven how well he has been doing and his age this would not be unreasonable but would need to remain vigilant about bringing him in with any s/s of infection (often just confusion in older adults) If he was going for colostomy would rec cysto to r/o outlet obstruction Todd Caballero MD Associate Staff [facility] [place] Department of Urology * Nikki Wallace RN - 05/09/2024 4:05 PM EDT Post void residual done on patient with 0 cc residual volume remaining. notified. Nikki Wallace RN documented in this encounterSelect Medical Ohiohealth Rehabilitation Hospital04-02-2025 NoteHNO ID: [id number] Author: NIKKI WALLACE RN Service: ? Author Type: Registered Nurse Type: Progress Notes Filed: 05/09/2024 21:00 Note Text: Post void residual done on patient with 0 cc residual volume remaining. notified. Nikki Wallace [facility]02-21-2025 History of Present illness Narrative* Donna Singh MD - 03/30/2024 2:40 PM EST COLORECTAL SURGERY March 30, 2024 Park Guidry 83 year old This consult was requested by Dr. Lars Shi and my final recommendations will be communicated to the requesting health care provider by way of the shared medical record for internal providers or letter via the [employer] for external providers. Chief Complaint: ulcer of anus and rectum History of Present Illness: Park Guidry is a 83 year old male presents today for evaluation of rectal ulcer. MRI scheduled for 04/03/24 at [facility] CT CAP 01/27/24 - [facility] Scan on 03/05/2024 3:53 PM by Celia Garcia: [facility] CT Chest,Abdomen and Pelvis 01/27/24 Impression: Circumferential irregular wall thickening of the distal sigmoid colon and rectum likely corresponding with patient's history of rectal ulceration and suspicion for malignancy. No adjacent enlarged lymph nodes. No distal metastatic disease of the chest abdomen or pelvis Sigmoidoscopy 03/02/24 - Dr. Avelar Scan on 03/05/2024 3:50 PM by Celia Garcia: [facility] Sigmoidoscopy Notes 03/02/24 Rectum: Excavated ulcerated lesion in the rectum (4 cm), biopsied using jumbo biopsy Pathology 03/02/24 Scan on 03/22/2024 4:01 PM by Celia Garcia: [facility]- Pathology Report 03/02/24 - Ulcer with reactive stromal atypia, negative for carcinoma Colonoscopy 01/27/24 - Dr. Avelar Scan on 03/05/2024 3:51 PM by Celia Garcia: [facility]- EGD & Colonoscopy Report 01/27/24 Ascending colon: [...] BP Cuff Size: Regular Adult) Pulse 83 Temp36.6 C (97.8 F) SpO2 97% General Appearance: Well appearing, alert, in no acute distress, well-hydrated, well nourished. Anorectal: External exam reveals no lesions. Digital rectal exam reveals anterior divot consistent with ulcer Dirt Supervisor present: Yes, Ximena Sheets Anoscopy could not be performed due to patient discomfort The sensitive examination was discussed with the Patient or Patient's Authorized Lumber Handler. Asapplicable, any other physician, advance practice provider, medical student, or other health professional student that will be observing or involved in the sensitive examination for educational or training purposes was discussed with the Patient or Authorized Lumber Handler. The Patient or Authorized Lumber Handler has agreed to proceed with the sensitive examination. 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 He had 2 biopsies of this lesionthat were negative for any malignancy. I will [...] Singh MD Colorectal Surgery documented in this encounterSelect Medical Ohiohealth Rehabilitation Hospital02-21-2025 NoteHNO ID: [id number] Author: DONNA SINGH MD Service: ? Author Type: Physician Type: Progress Notes Filed: 03/30/2024 15:51 Note Text: COLORECTAL SURGERY March 30, 2024 Park Guidry 83 year old This consult was requested by Dr. Lars Shi and my final recommendations will be communicated to the requesting health care provider by way of the shared medical record for internal providers or letter via the [employer] for external providers. Chief Complaint: ulcer of anus and rectum History of Present Illness: Park Guidry is a 83 year old male presents today for evaluation of rectal ulcer. MRI scheduled for 04/03/24 at [facility] CT CAP 01/27/24 - [facility] Scan on 03/05/2024 3:53 PM by Celia Garcia: [facility] CT Chest,Abdomen and Pelvis 01/27/24 Impression: Circumferential irregular wall thickening of the distal sigmoid colon and rectum likely corresponding with patient's history of rectal ulceration and suspicion for malignancy. No adjacent enlarged lymph nodes. No distal metastatic disease of the chest abdomen or pelvis Sigmoidoscopy 03/02/24 - Dr. Avelar Scan on 03/05/2024 3:50 PM by Celia Garcia: [facility] Sigmoidoscopy Notes 03/02/24 Rectum: Excavated ulcerated lesion in the rectum (4 cm), biopsied using jumbo biopsy Pathology 03/02/24 Scan on 03/22/2024 4:01 PM by Celia Garcia: [facility] Pathology Report 03/02/24 - Ulcer with reactive stromal atypia, negative for carcinoma Colonoscopy 01/27/24 - Dr. Avelar Scan on 03/05/2024 3:51 PM by Celia Garcia: [facility]- EGD AND Colonoscopy Report 01/27/24 Ascending colon: [...] deep ulcer noted, biopsies were done using BrightBytesnaomio biopsy Pathology 01/27/24 COLON: Biopsy, Ascending, POLYPS [...] exam reveals anterior divot consistent with ulcer Dirt Supervisor present: Yes, Ximena Sheets Anoscopy could not be performed due to patient discomfort The sensitive examination was discussed with the Patient or Patient's Authorized Lumber Handler. As applicable, any other physician, advance practice provider, medical student, or other health professional student that will be observing or involved in the sensitive examination for educational or training purposes was discussed with the Patient or Authorized Lumber Handler. The Patient or Authorized Lumber Handler has agreed to proceed with the sensitive [...] Review of Pathology Revie (more content not included)...[facility]02-13-2025 Telephone encounter Note* Telephone Encounter - Ilan Padilla RN - 03/22/2024 10:46 AM EST Called [facility] Die Equipment Operator, Lamar Matthew, and told her I was looking through the records and wondered if we could get a copy of pathology from sigmoidoscopy on 03/02/24 and also if he has had MRI rectum yet and if so, if we could get that also. Provided cell phone number for return call. [facility]02-13-2025 Miscellaneous Notes* Telephone Encounter - Ilan Padilla RN - 03/22/2024 10:46 AM EST Called [facility] Die Equipment Operator, Lamar Matthew, and told her I was looking through the records and wondered if we could get a copy of pathology from sigmoidoscopy on 03/02/24 and also if he has had MRI rectum yet and if so, if we could get that also. Provided cell phone number for return call. documented in this encounterSelect Medical Ohiohealth Rehabilitation Hospital01-31-2025 Telephone encounter Note * Telephone Encounter - Celia Garcia - 03/09/2024 8:55 AM EST 03/09 Tried 3 times to contact patient unable to reach patient [facility]01-31-2025 Miscellaneous Notes* Telephone Encounter - Celia Garcia - 03/09/2024 8:55 AM EST 03/09 Tried 3 times to contact patient unable to reach patient documented in this encounterSelect Medical Ohiohealth Rehabilitation Hospital01-31-2025 Telephone encounter Note * Telephone Encounter - Celia Garcia - 03/09/2024 8:54 AM EST 03/09 Tried to leave VM but unable to [facility]01-31-2025 Miscellaneous Notes* Telephone Encounter - Celia Garcia - 03/09/2024 8:54 AM EST 03/09 Tried to leave VM but unable to documented in this encounterSelect Medical Ohiohealth Rehabilitation Hospital01-30-2025 Telephone encounter Note * Telephone Encounter - Celia Garcia - 03/08/2024 10:42 AM EST 03/08 Unable to leave message to call back to schedule appointment [facility]01-30-2025 Miscellaneous Notes* Telephone Encounter - Celia Garcia - 03/08/2024 10:42 AM EST 03/08 Unable to leave message to call back to schedule appointment documented in this encounter[facility] NotePatient Education Oncology Cancer Screening for Males A cancer screening is a test or exam that checks for cancer. Work with your health care provider tocreate a cancer screening schedule that protects your health. Who should have screening? All people who are male should be considered for screening of certain cancers, including colorectalcancer, prostate cancer, lung cancer, and skin cancer. [...] very early stages, before it spreads and becomesharder to treat and before you would start [...] old and continuing through 75 years old. Formales 76?85 years old, the decision to be screened should be based on a person's preferences, life expectancy, overall health, and prior screening history. Your health care provider may recommend screening before 45 years old. You will have tests every 1?10 years, depending on your results and the type of screening test. People at increased risk should start screening at an earlier age. Talk withyour health care provider about which screening test [...] such as being an person or having aclose family member with prostate cancer. ??? You have had gene changes or a genetic condition that was passed on to you from a parent (inherited). These gene changes or genetic conditions include BRCA1 or BRCA2 gene mutations or Napier syndrome. ??? You have symptoms of prostate cancer, such as problems urinating or problems getting or keepingan erection (erectile dysfunction). When you have been screened for prostate cancer, future screening may be recommended based on the results of your blood tests. Prostate cancer screening for males with average risk may start at 50 years old. Males with risk factors may need to be screened earlier, at 40?45 years old. Talk with your health care provider aboutwhether screening is right for you and, if [...] if anything looks unusual. Males with a zhpbet-uwqb-chyrpg risk for skin cancer may want to see a skin tanner (dermatologi (more content not included)...[facility]01-28-2025 Telephone encounter Note* Telephone Encounter - Celia Garcia - 03/06/2024 10:46 AM EST Unable to leave VM will try again later [facility]01-28-2025 Miscellaneous Notes* Telephone Encounter - Celia Garcia - 03/06/2024 10:46 AM EST Unable to leave VM will try again later documented in this encounter[facility]2025 [place] [address] Flexible Sigmoidoscopy Note Signed Patient: Park Guidry MR#: [id number] : 1940 Acct:[id number] Age/Sex: 83 / M Adm Date: Loc: Room: Type: [facility] Attending Dr: Lars Avelar MD Copies to: DO Lars Hua MD~ Flexible Sigmoidoscopy Note Date/Provider 03/02/2024 Lars Avelar MD Procedure Findings: Procedure: Flexible Sigmoidoscopy Indication: 83-year-old man here for flexible sigmoidoscopy for evaluation of rectal ulcer Pre-operative diagnosis: Rectal ulcer Post-operative diagnosis: Excavated ulcerated lesion in the rectum(~4 cm) Sedation: Propofol per anesthesia dept O2 oximetry, hemodynamic monitoring was performed pre, during, and post procedure. Patient was identified, H&P completed, patient was given full explanation of the procedure as well as associatedrisks and written consent wasobtained prior to procedure. Patient expressed complete understanding of the procedure as well as alternatives to the procedure and to anesthesia and agreed to proceed with the procedure as indicated. Patient was immediately reassessed prior to IV sedation. Under IV sedation, patient was placed in the left lateral decubitus position. Digital rectal exam was performed and normal. A upper endoscope was inserted and passed proximally to the splenic flexure. Endoscope was slowly withdrawn with the findings as below. [place] bowel prep score was poor. Findings: Solid stool noted in the left colon and rectum otherwise findings are as below Splenic flexure: Normal. Descending colon: Normal. Sigmoid colon: Normal. Rectum: Excavated ulcerated lesion in the rectum(~4 cm), biopsied using jumbo biopsy Biopsy taken: Yes Complications: None EBL: Minimal Recommendations: -Follow up pathology -Will get MRI rectum and [facility] Following a period of recovery, patient was seen and given full explanation of the procedure. Patient tolerated the procedure well and will be discharged in satisfactory, stable condition. Lars Avelar M.D. Documented By: Lars Avelar MD 03/02/24 0847 Signed By: 03/02/24 0857 [facility]01-24-2025 [place] [address] Gastroenterology H&P Signed Patient: Park Guidry MR#: [id number] : 1940 Acct:[id number] Age/Sex: 83 / M Adm Date: Loc: Room: Type: [facility] Attending Dr: Lars Avelar MD Copies to: Alpesh Dunn,DO Lars Avelar MD~ Date of Service: 03/02/2024 HISTORY & PHYSICAL: Patient's history with special attention to the cardiovascular, pulmonary systems and the current problem was reviewed with the patient immediately prior to the procedure. Present medications and doses reviewed in the EMR. Allergies and pertinent laboratory tests were also re viewedat this time in the EMR. The physical [...] Avelar M.D. Documented By: Lars Avelar MD 03/02/2446 Signed By: 03/02/2447 [facility]12-23-2024 NotePatient Education Urology Cystoscopy Cystoscopy is a procedure [...] including vitamins, herbs, eye drops, creams, and rwus-fkv-wyfaagg medicines. ??? Any problems you or family [...] tells you to take them. ??? Taking ivkz-fwp-wphfzzu medicines, vitamins, herbs, and supplements. Tests You [...] cystoscope to fill your bladder. The fluid willstretch your bladder so that your health care [...] these instructions at home: Medicines ??? Take sjxv-yqu-ahsezvh and prescription medicines only as told by your health care provider. ??? If you were prescribed an antibiotic medicine, take it as told by your health care provider. Donot stop taking the antibiotic even if you [...] testing (biopsy) during your (more content not included)...[facility]11-11-2024 Evaluation note* Diagnosis Onset Date Resolution Status Admit Date Diarrhea acuteNovember 2023 11:06amHypertensionacuteNovember 2023 11:06amIFG (impaired fasting glucose)acuteNovember 2023 11:06amLumbar spondylosis acuteNovember 2023 11:06amProstate CAacuteNovember 2023 11:06am Weight lossacuteNov2023 11:06am [facility] Work Phone: 1(810) 882-294707-08-2024 NotePatient Education Oncology Hormone Suppression Therapy for [...] cancer. Where to find more information ? [place] [employer]: www.cancer.org ? National Cancer [place]: www.cancer.gov Contact a health care provider if: [...] These symptom (more content not included)...[facility] 02-09-2023 Evaluation note* Encounter Date Diagnosis Assessment Notes Treatment Notes Treatment Clinical Notes Feb, Closed nondisplaced transverse fracture of shaft of right femur with routine healing, subsequent encounter (ICD-10 - S72.324D) Seen by Orthopedics yesterday w/ jarret removed. Doing well, no restrictions. WBAT, using assistive device for stability. Feb,losed fracture of multiple ribs of right side with routine healing, subsequent encounter (ICD-10 -S22.41XD)No treatment necessary, typical healing will take 4-6 wks. Instructed on cough and deep breathing exercises Tylenol for pain. Feb,rimary hypertension (ICD-10 - I10)This patient is instructed to consume a healthy, low-fat, low-salt diet. They are also encouraged to continue exercise to achieve/maintain a normal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 ProviderActiveStart: March 02, 2024 End: March 02, 2024 Team Status: Active Member Role Status Dates Alpesh Dunn DO Primary Care Provider Active Start: March 02, 2024 Imad Asaad , MDAttending Provider, Other ProviderActiveStart: March 02, 2024 Team Status: Inactive Member Role Status Dates Alpesh Dunn DO Primary Care Provider Active AnabaptistMaite Carr Provider, Attending ProviderActiveNaheed Joshi RNOther ProviderActiveDetomas Samuels , RNOther ProviderActiveQuyen Gonzalez RNOther ProviderActiveMicjuliet Dawkins , RNOther ProviderActiveBailey Rendon RNOther ProviderActiveMorosamaria Leyva RNOther ProviderActiveRadavon Yanez MDOther ProviderActiveLisa M Dials , APRNOther ProviderActiveRonobitheresa Cox , DOOther ProviderActiveMusfelipe Mercado MDOther ProviderActive Sherwin Cavanaugh , DOOther ProviderActiveDaniel Carnes MDOther Provider ActiveFlower Hendrickson MDOther ProviderActiveLyangelita Bui , APRNOther ProviderActiveRosamaria Gregory MDOther ProviderActiveBapenny Barnett MDOther ProviderActiveMario Merino MDOther ProviderActiveKaylie Brower MDOther ProviderActiveMichaejuan Seo , DOOther ProviderActiveLenin Napier MDOther ProviderActiveEarjuan Maurice MDOther ProviderActiveAmy Ludivina SouzaBurlingame , EMBEDDED SOFTWARE ARCHITECT-COther ProviderActiveYordan Bowen MDOther ProviderActiveJuan Espinoza MD Other ProviderActiveJoss Michelle MDOther ProviderActiveAnoRodarte MDOther ProviderActiveMargo Hakeem , DOOther ProviderActiveNeal R Gabriele , DOOther ProviderActiveAnthony M Miniaci , DOOther ProviderActiveLinda Obika , APRNOther ProviderActiveShaakashn Ludivina Wyatt , DOOther ProviderActiveObaydah Katia Tavera MDOther ProviderActivePaula Marylou Padilla , APRNOther ProviderActiveAlicia C Patty , CLASSIFICATION INSPECTOR Other ProviderActiveAlamelita Grimm , Other ProviderActiveDatierra Ortiz MDOther ProviderActivePatricia Rey Hope , APRNOther ProviderActiveYayoni Smalls , DOOther ProviderActiveSandra Flood , RNOther ProviderActiveTeam Member RelationshipSpecialtyStart DateEnd Date Alpesh Dunn DO PCP - GeneralInternal Medicine09/10/16Team MemberRelationshipSpecialtyStart Date End Date Alpesh Dunn DO PCP - GeneralInternal Medicine09/10/16Team MemberRelationshipSpecialtyStart Date End Date Alpesh Dunn DO PCP - GeneralT[facility] Care Corporationnal Medicine09/10/16Team MemberRelationshipSpecialtyStart Date End Date Alpesh Dunn DO PCP - GeneralTuba City [facility] Health Care Corporationnal Medicine09/10/16 Team Status: Inactive Member Role Status Dates Alpesh Dunn DO Primary Care Provider Active Start: April 03, 2024 End: April 03, 2024Imad SHIRLEY Avelarttcali ProviderActiveStart: April 03, 2024 End: April 03, 2024Team MemberRelationshipSpecialtyStart DateEnd Date Alpesh Dunn DO PCP - GeneralInternal Medicine09/10/16 Source Comments (unrecognize d section and content) In the event this informatio n is protected by the Federal Confidentiality of Alcohol and Drug Abuse Patient Records regulations: The Federal rules restrict any use of the information to criminally investigate or prosecute any alcohol or drug abuse patient.[facility] HospitalIn the event this information is protected by the Federal Confidentiality of Alcohol and Drug Abuse Patient Records regulations: The Federal rules restrict any use of the information to criminally investigate or prosecute any alcohol or drug abuse patient.[facility] HospitalIn the event this information is protected by the Federal Confidentiality of Alcohol and Drug Abuse Patient Records regulations: The Federal rules restrict any use of the information to criminally investigate or prosecute any alcohol or drug abuse patient.[facility] HospitalIn the event this information is protected by the Federal Confidentiality of Alcohol and Drug Abuse Patient Records regulations: The Federal rules restrict any use of the information to criminally investigate or prosecute any alcohol or drug abuse patient.[facility] HospitalIn the event this information is protected by the Federal Confidentiality of Alcohol and Drug Abuse Patient Records regulations: The Federal rules restrict any use of the information to criminally investigate or prosecute any alcohol or drug abuse patient.[facility] HospitalIn the event this information is protected by the Federal Confidentiality of Alcohol and Drug Abuse Patient Records regulations: The Federal rules restrict any use of the information to criminally investigate or prosecute any alcohol or drug abuse patient.[facility] HospitalIn the event this information is protected by the Federal Confidentiality of Alcohol and Drug Abuse Patient Records regulations: The Federal rules restrict any use of the information to criminally investigate or prosecute any alcohol or drug abuse patient.[facility] FOR RECORDS PERTAINING TO PATIENTS WHO ARE [...] BE BASED ON THE PRIMARY CLINICAL RECORDS. [facility] provides no warranty or guarantee of the accuracy or completeness of information in this document.
--- NOTE | 2024-11-29 13:59 | PM.WCHP ---
Wound Care H&P: HPI History of Present Illness Narrative: The patient is a pleasant 84-year-old gentleman who presents for routine nail care. The patient has recurrent painful ingrown toenails that require frequent debridement. No sign of infection at this time but he does report a lot of pain in the hallux toenails bilaterally for the past few weeks. Exam Narrative: Exam Narrative: Derm: Skin is diffusely dry, thin, and shiny. Toenails 1 through 10 are elongated, thickened, and mycotic. There is ingrowing of the medial and lateral nail borders of both great toes. No evidence of paronychia at this time. Vascular: The left DP pulse is 1/4. Right DP pulse is nonpalpable. The PT pulses are nonpalpable bilaterally. Capillary refill is less than 3 seconds bilaterally. Superficial varicosities are noted. There is nonpitting edema of both lower legs and ankles. Digital hair is absent bilaterally. Neuro: Protective sensation intact to 5/5 areas tested in each foot. Vibratory sensation is intact. Achilles deep tendon reflexes are 1+ bilaterally. MSK: chronic swelling of the right ankle with limited ROM and crepitus upon AROM. No gross deformity on the left. Strength WNL in all planes. Assessment and Plan Assessment and Plan (1) Ingrowing nail, left great toe: (2) Ingrowing nail, right great toe: (3) Tinea unguium: (4) Difficulty walking: (5) Gait instability: (6) Disorder of nail due to another disorder: (7) Pain around toenail: Plan The patient is a pleasant 84-year-old gentleman with history of ambulatory dysfunction who presents for routine nail care. He gets recurrent painful ingrowing of the medial and lateral nail borders of both great toes. All nails were debrided without incident. The great toes were trimmed in a slant back fashion on both sides and nail folds were evacuated of foreign material. Follow-up in 2 months, sooner if any issues arise. Acute Procedures Podiatry Nail Debridement Class B Findings Absent posterior tibial pulse: bilateral Advanced trophic changes as evidenced by any three of the following: decreased hair growth, nail changes (thickening) and skin texture (thin or shiny) Absent dorsalis pedis pulse: left Class C Findings Claudication: No Temperature changes: No Edema: Yes Nail debridement paresthesia (abnormal spontaneous sensations in the feet): No Burning: No Qualifies If: Qualifiers If:: A patient qualifies for nail debridement if they have: 1 class A finding (Q7) 2 class B findings (Q8) OR 1 class B & 2 class C findings in addition to a primary condition (Q9) Nail Procedure Nail Procedure Time out: Yes Nail procedure: other (Nail debridement 1 through 10, slant back trimming to relieve ingrowing toenails to bilateral great toes) Number of affected nails: 10 Location (toes): left and right Procedure successful: Yes Patient tolerated procedure: well and no complications Additional comments: Toenails 1 through 10 were sharply debrided with nail nippers without incident. The medial and lateral corners of the great toenails were trimmed in a slant back fashion and debris was cleared from the nail folds bilaterally. He noted pain relief postprocedure.
== END 2024-11-29 13:22 | disposition home or self-care (01) ==
LOC: WC 13:21
PROVIDERS: PCP Internal Medicine; Visit Provider Physician Assistant
DX: B35.1 Tinea unguium (principal); L60.0 Ingrowing nail; R26.9 Unspecified abnormalities of gait and mobility; L60.8 Other nail disorders; M79.675 Pain in left toe(s); M79.674 Pain in right toe(s)
CPT/HCPCS: 11721

== ENCOUNTER 2025-01-09 13:40 | Outpatient (OUT) | payer MEDICARE, SELFPAY ==
--- OUTSIDE RECORDS SUMMARY | 2025-01-01 07:01 | XMS_ITS | Continuity of Care Document ---
Author Organization [facility] Address [address] [place] [address] Phone Care Team Providers Care Slip Filler Name Role Phone Alpesh Hampton DO Primary Care Provider [phone] Alpesh Hampton DO Attending Provider Care Teams Patient Care Team Team Status: Active Member Role/Relationship Status Dates Alpesh Hampton DO Primary Care Provider Active Patient Care Team Team Status: Inactive Member Role/Relationship Status Dates Alpesh Hampton DO Primary Care Provider Active Start: January 01, 2025 End: January 01enjakev Hampton DOAttending ProviderActiveStart: January 01, 2025 End: January 01, 2025 Chief Complaint and Reason for Visit Chief Complaint Admit Date 6 mo f/u January 01, 2025 10:53am Reason for Visit Admit Date ELENA (generalized anxiety disorder) Novem 2024 10:53am GERD (gastroesophageal reflux disease) N ovember 2024 10:53am Hypertension January 01, 2025 10:53am IFG (impaired fasting glucose) January 01, 2025 10:53am Lumbar spondylosis January 01, 2025 10:53am Overweight January 01, 2025 10:53am Prostate CA January 01, 2025 10:53am Allergies, Adverse Reactions, Alerts Allergen Type Severity Reaction Last Updated Verified Status No Known Allergies Allergy Unknown January 01, 2025 11:12amYesActive Social History Smoking Status Status Start Date End Date Date of Observa tion Ex-smoker (finding) June 25, 2024 10:56am Observation Status Observation Response Date of Response Legal Sex Male (finding) Sex Assigned At BirthMaleApril 1940 Family History Relationship Condition Age at Onset Recorded Date/T viry brother Heart disease Unknown HypertensionUnknownfatherDeceasedUnknownHypertensionUnknownmotherDiabetes mellitusUnknownHeart diseaseUnknownDeceasedUnknownHypertensionUnknown Problems Active Problems Problem Diagnosis/Recorded Date Onset Date Status C omments ELENA (generalized anxiety disorder) June 22, 2023 8:41am U nknown Active Impaired mobility and activities of daily livingDecember 2022 12:04pm UnknownActiveLow back painJanuary 01, 2025 11:53amUnknownActiveFatigueOctober 2023 7:11pmUnknownActiveProstate CADecember 2022 10:33pmUnknown ActiveDx: 2017 s/p radiation and ADTDiarrheaOctober 2023 7:11pmUnknown ActiveIFG (impaired fasting glucose)June 22, 2023 9:15pmUnknownActiveOverweight June 24, 2023 8:46amUnknownActiveWeight lossOctober 2023 7:11pmUnknown ActiveEGD: normal - 01/2024,Colonoscopy: polypectomy - chest: normal - abd/pelvis: normal - 12/2023, enign prostatic hyperplasia with lower urinary tract symptomsMay 2023 8:41amUnknownActiveLeft hip pain January 01, 2025 11:53amUnknownActiveAbnormal finding on imagingSept2016 1:26pmUnknownActiveGERD (gastroesophageal reflux disease)June 22, 2023 9:13pmUnknownActiveHypertensionDecember 2022 10:33pmUnknownActive Colon polypJanuary 2024 7:49amUnknownActiveTubulovillous adenoma w/o dysplasia - 01/2024Lumbar spondylosisMay 2023 8:41amUnknownActive Inactive/Resolved Problems Problem Diagnosis/Recorded Date Onset Date Status C omments Rib contusion January 20, 2023 12:05pm Unknown Resol shelly Right femoral fractureD2022 12:62gc7710Dbijyrcz Medications Medication Status Dose Units Route Directions Qty Days Refills S tart Date Stop Date End Date Reason(s) Instructions Adherence Alprazolam 0.25 mg tablet Discontinued 0 DYIhiuf718355Vbowqlmv 2023 5:08pmJune 2024 5:39pmGeneralized anxiety disorder Generalized anxiety disorder1/2 PO w/ evening meal and 1 PO q HSSod Picosulf-Mag Ox-Citric Ac (Clenpiq) 10 mg-3.5 gram- 12 gram/175 mL seykzffeMirwpfhilrcz780OR PO.XEZPMYF13833Ibnwzyrh 2023 12:00amDecember 2023 11:26amFollow instructions given by officeAmlodipine 5 mg eihgatDjnoea0ANUWMoubp474854Hdprwlz 2024 5:44pmComplies with drug therapyMeloxicam 15 mg tabletDiscontinued0 .ROUTE.FBVSTCL119Sockjam 2024 7:06amJuly 2024 7:35pmTake 1 tablet by mouth once dailyAlprazolam 0.25 mg tabletActive0.25MGPO.QYYOYJW14900Rmer 2024 5:37pmGeneralized anxiety disorder Generalized anxiety disorder0.25 mg orally; 1/2 tablet q evening and 1 q HS Complies with drug therapyMeloxicam 15 mg tabletActive0.ROUTE.CTGTBZH638Axoo 2024 7:35pmTake 1 tablet by mouth once dailyComplies with drug therapy Tamsulosin (Flomax) 0.4 mg capsuleActive0.4MGPOTwice btvan511782Kgrvgz 4th, 2025 4:06pmComplies with drug therapyTolterodine 4 mg capsule,extended release 24hr Tjihkn3FQPCXpihk462019Arumot 4th, 2025 4:06pmComplies with drug therapyMeloxicam 15 mg WwwlrcIszciipofbin45RLYGnyqllPcobjr 2016 11:00pmDecember 2022 5:00pmAspirin (Madi Low Dose Aspirin) 81 mg Tablet,Delayed Release (Dr/Ec) Eeszrwuwqnzg83LMABQzudu dailyAugust 2016 11:00pmce2022 8:10am Alprazolam 0.25 mg TabletDiscontinued0.25MGPODailyAugust 2016 11:00pm January 19, 2023 5:00pmDoxazosin 2 mg YxpvivBamjhotmkgit5SYELegvkrRkcjck 2016 11:00pmDecemb2022 5:01pmMultivitamin Tablet,Chewable Inkbmotpptha0RIVHQlzcaaNandkg 2016 11:00pm2022 5:01pm Lidocaine 4 % Adhesive Patch,MgilbyofiCfxcszsvghng8QFFCPLPMVIIGOdxqfWsfmiehl 13th, 2023 12:002022 8:10amEnoxaparin 30 mg/0.3 mL Syringe Mozjrrfwnovq20DZHIQQGXU53QRwzgzkum 13th, 2023 12:00amce2022 8:11am Tolterodine 4 mg Capsule,Extended Release 60giWxyxbitkmyam9CEAGTgrfnLzeenfim 13th, 2023 12:002022 8:10amAmlodipine 5 mg TabletDiscontinued5 MGPODacorewell health [facility]2022 12:002022 8:10amTamsulosin (Flomax) 0.4 mg CapsuleDiscontinued0.4MGPOTwice dailyJanuary 19, 2023 12:00am February 02, 2023 8:10amErgocalciferol (Vitamin D2) 1,250 mcg (50,000 unit) VydtbgzJfhjgvplmwmy8448OGMIVniqxp 2022 12:002022 8:10amEnzalutamide (Xtandi) 40 mg AzmuwfrNkynlimphopc543WFYZFkaer with supperJanuary 19, 2023 12:00amMay 2023 8:46amAcetaminophen 500 mg JyuvxjUucxyhfukwkt312AQHCN1O as needed for Amku52Pklahrow 27th, 2023 12:00amMay 2023 8:16amFerrous Sulfate 324 mg (65 mg iron) Tablet,Delayed Release (Dr/Ec)Wwlftksqksmq303DRHTKizec61213Wkwkpzbl 27th, 2023 12:00amMay 2023 8:17amDiclofenac Sodium 1 % YviAflogjdhprnd8PMURNPNYGQwzsx times zxowv2436 February 02, 2023 12:00amDecemb2023 11:26amOxycodone 5 mg Tablet Vmrtujrdglnp8HEYMAmbms 8 hours as needed for Pain (Scale Score 7-10)15502022Ma2023 8:46amAcute postoperative pain of right hip Other acute postprocedural pain Pain in right hipMelatonin 5 mg PnqvnePsgkdrdkrulr7TDVRLvefr at bedtime as needed for Azken45856Ivwzfeof2022 12:00amMay 2023 8:18amMetformin 850 mg MxsrnnKmkpkubhkptl795RBFASifgy with wayosc95054Urkgmmta 27th, 2023 12:00amMay 2023 8:46amOndansetron 4 mg Tablet,DisintegratingDiscontinued4 MGPOEvery 8 hours as needed for Nausea And Tgspivxd85778Drbiecci 27th, 2023 12:00amMay 2023 8:46amLidocaine 4 % Adhesive Patch,MedicatedDiscontinued1 VWBCPIKOFLBSMasyf56380Lthglugv 27th, 2023 8:10amMay 2023 8:18amTolterodine 4 mg Capsule,Extended Release 85csOswqbhvvrewn8FTJXVgezg46823Zcicftul 27th, 2023 8:10amAugust 2024 4:06pmAmlodipine 5 mg CzqcxeZwjcbhektmir4RYQDTlavg41015 February 02, 2023 8:10amJanuary 2024 5:44pmAspirin (Madi Low Dose Aspirin) 81 mg Tablet,Delayed Release (Dr/Ec)Djlyek21ISBARrpyr accxy86951 February 02, 2023 8:10amComplies with drug therapyTamsulosin (Flomax) 0.4 mg CapsuleDiscontinued0.4MGPOTwice iafce95514Uxwsjnhh 27th, 2023 8:10amAugust 2024 4:06pmErgocalciferol (Vitamin D2) 1,250 mcg (50,000 unit) Capsule Bqdgxwongntl1181UBROKdttqg kihd4140WaeeqsfyFebruary 02, 2023 8:10amDeceer 2023 11:26amMeloxicam 15 mg lovkxbMzculuaxpxut60XRDNMowarYxlepaar 20th, 2024 12:00am March 08, 2024 7:06amDiclofenac Sodium 1 % IxsHikcgv0DUZAULDBTBtbwh times daily as needed for painJanuary 27, 2024 12:00amComplies with drug therapy Ciprofloxacin Hcl 500 mg lpislvCjtzuimikwye392BOORNqcjl ttula2100Houvxtyt 11th, 2024 12:00amJanuary 27, 2024 11:25amAlprazolam 0.25 mg uscdftLwbhebjcuduq4EK .COMPLEXMay 2023 11:00pmJune 24, 2023 8:16amTAKE 1/2 TABLET BY MOUTH EVERY EVENING WITH MEAL AND TAKE ONE TABLET BY MOUTH EVERY NIGHT AT BEDTIME Meloxicam 15 mg jfbpcvWqimktgxobcq24EZNIBpccqLuw 14th, 2024 11:00pmy 2023 8:18amEnzalutamide 40 mg rkgxbrQtcayi92UZAPIuly times dailyJune 21, 2023 11:00pmComplies with drug therapyEnoxaparin (Lovenox) 30 mg/0.3 mL syringe Heiafupegdjk91QPNJEIVIXmyutYti 16th, 2024 11:00pmJune 24, 2023 8:23amIbuprofen 400 mg qdzvyxClmkwzlqvxsm012RKKEKpdgm 6 hoursJune 23, 2023 11:00pmDecemb2023 11:26amAlprazolam 0.25 mg aitosmMvyyjxhecujh5MCRomjp754962Jwh 2023 11:00pmJanuary 09, 2024 5:09pmGeneralized anxiety disorder Generalized anxiety disorder1/2 PO w/ evening meal and 1 PO q HSEscitalopram Oxalate 5 mg nibfwaIwzmll8GSIXSmytn33041Eapretoz 25th, 2025 12:00amComplies with drug therapy Immunizations Immunization Event Date Not Given Reason Dose Number 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 Lot Number Reason(s) Given Vaccine Information Statement (VIS) Detail Administration Location COVID-19 Billy Lomas ([employer]) March 04, 2020 COVID-19 mRNARadhanatmarcus ([employer])March 27, 2020Fluzone TIV High-Dose 65YR+ November 04, [id number] TIV High-Dose 65YR+December 27, [id number] Fluzone TIV High-Dose 65YR+January 12, [id number] TIV High-Dose 65YR+ January 01, [id number] [facility] 65YR+ October 23, [id number] QIV High-Dose 65YR+November 25, [id number] Fluzone QIV High-Dose 65YR+January 14, 20238529FK9449PRdhmsbgxth, unspecified formulationOctober 2015influenza, unspecified formulationNov2016influenza, unspecified formulationOctober 2Pneumococcal Conjugate Vaccine, 13 valentOctober 2015Pneumococcal Conjugate Vaccine, 13 valent December 27, [id number] Polysacc. Vaccine, 23 valentMay 2009 Pneumococcal Polysacc. Vaccine, 23 valentSeptember 2019Pneumococcal Polysacc. Vaccine, 23 valentJanuary 2015Quadrivalent InfluenzaOctober 2016Tetanus, Diphtheria, Pertussis (Tdap)December [id number], Diphtheria, Pertussis (Tdap)December [id number] Vital Signs Vital Reading Result Reference Range Collection Date/Time Height 65 [in_i] January 01, 2025 11:06pxRlkarc74.10 kgNov2024 11:15amHeart Rate81 /vjp26-534UqclgnxpJanuary 01, 2025 11:15amRespiratory rate12 /lwn45-32Zvpjcuxr 25th, 2025 11:15amBP Cqiwyabt920 mm[Hg]100-140January 01, 2025 11:15amBP Diastolic 70 mm[Hg]60-100January 01, 2025 11:15amBMI (Body Mass Index)30.1 kg/m2 January 01, 2025 11:15am Advance Directives Advance Directive Response Recorded Date/ Time Advance Directives No October 06, 2016 7:29am Insurance Providers Guarantor David Scanlon Address [address] [facility] [address]Fwkduss Info.Home Phone: Coverage Status Update:2024 Payer Group Member ID Coverage Type Subscriber Relationship to Subscriber Effective Date Expiration Date Medicare [id number] H Nikiorsfrancisco Id: [id number] [address] [facility] [address] Home Phone: Email: [email or web address] [facility] Re[facility]-IP Part A [id number] H Nikiorst Id: [id number] [address] [facility] [address] Home Phone: Email: [email or web address] [facility] PFFS [id number] H aMrthaenhorst Id: [id number] [address] [facility] [address] Home Phone: Email: [email or web address] Encounters Encounter Location(s) Arrival/Admit Date Discharge/Departure Date Discharge/Departure Disposition Provider(s) Departed Physician/ Provider Office Visit -[facility] January 01, 2025 10:53am January 01, 2025 11:59am Discharged to home care or self care (routine discharge) Alpesh Hampton DO Recent Diagnosis Onset Date Admit Date ELENA (generalized anxiety disorder) Unknown January 01, 2025 10:53am GERD (gastroesophageal reflux disease) Unknown January 01, 2025 10:53am Hypertension Unknown January 01 10:53am IFG (impaired fasting glucose) Unknown N ov2024 10:53am Lumbar spondylosis Unknown December 10:53am Overweight Unknown January 01, 10:53am Prostate CA Unknown January 01 10:53am Assessments Diagnosis Onset Date Resolution Status Admit Date ELENA (generalized anxiety disorder) 2024 10:53amGERD (gastroesophageal reflux disease)acute January 01, 2025 10:53amHypertensionacuteJanuary 01, 2025 10:53amIFG (impaired fasting glucose)2024 10:53amLumbar spondylosis acuteJanuary 01, 2025 10:53amOverweightacuteJanuary 01, 2025 10:53am Prostate CAacuteNovember 2024 10:53am Plan of Treatment Author [facility]pesh Hampton [facility], 20[facility] 6:42pmI have instructed this patient to consume a healthy, low-fat, low-salt diet. I have also encouraged them to continue exercise with weight loss to achieve/maintain a BMI < 30. I have instructed this patient on the correct procedure for obtaining home BP measurements:? - rest for 5 minutes w/o talking. - positioned w/ feet on floor and arms supported. - average best 2/3 readings w/ goal < 135/85. - update office w/ home readings in 2 weeks. Continue Amlodipine without interruption I have instructed this patient to avoid bending, twisting or lifting. I have also instructed on use of intermittent heat and ice as needed. They may schedule a massage or gentle manipulation. I instructed them on the safe use of Tylenol, Lidocaine and stretching exercises. I informed them of alternative modes of treatment for severe pain, which may include referral to physical therapy or pain management. His A1C is between 5.7-6.5%. Instructed on low carb, high fiber diet. Instructed on routine exercise program for 30-60min three times weekly. Instructed on correlation between obesity and insulin resistance and encouraged to lose weight. Monitor A1C every 6 months. Check A1C No s/s recurrence. f/u Urology Monitor PSA closely Lupron injections every 6mo I have instructed this patient to avoid lying flat after eating.?? I have also recommended to avoid eating 2 hours prior to bedtime.?? They were also informed that smaller, frequent meals may be better tolerated. I have discussed additional treatment options for persistent symptoms, which includes: weight loss, H2 blockers and PPI. I have also instructed them to notify the office with any pain or difficulty swallowing. I have instructed this patient on a low-fat, high-fiber diet.?? I have also instructed them to reduce calories, portions sizes, sweet drinks and snacks.?? I have also recommended they exercise for 30 minutes, 3-5 times weekly. They are aware of the comorbid conditions associated with excessive weight: Diabetes, HTN, Hyperlipidemia, CAD and arthritis. Future Tests Future scheduled test information is unavailable Pending Tests Test Name Ordered Date Scheduled Date XR hip LT min 2V(w/wo pelvis)* January 01 11:51am XR lumbar spine 2-3V*January 01, 2025 11:51am Future Visits Future appointment information is unavailable Future Procedures Future procedure information is unavailable Future Medications Future medication information is unavailable Patient Instructions Patient instructions are unavailable
--- OUTSIDE RECORDS SUMMARY | 2025-01-09 13:44 | XMS_ITS | Clinical Summary ---
Author Organization [facility] Address [address] [place] [address] Care Team Providers Care Ammunition Assembly Ii Laborer Name Role Phone Unavailable Primary Care Provider Unavailabl e Social History Tobacco UseTypesPacks/DayYears UsedDateSmoking Tobacco: Never AssessedUT Safety & EnvironmentAnswerDate RecordedFear of Current or Ex-PartnerNot on file 03/31/2023Emotionally AbusedNot on file03/31/2023hysically AbusedNot on file 03/31/2023Sexually AbusedNot on file03/31/2023hysically or Sexually AbusedNot on file03/31/2023Sex and Gender InformationValueDate RecordedSex Assigned at BirthNot on fileLegal LlePgyz9208/06/2021 12:33 AM EDTGender IdentityNot on file Sexual OrientationNot on file Last Filed Vital Signs Vital SignReadingTime TakenCommentsBlood Pressure--Pulse--Temperature-- Respiratory Rate--Oxygen Saturation--Inhaled Oxygen Concentration--Trgica03.6 kg (202 lb)08/11/2021 8:32 AM EZCKioftn170.7 cm (5' 8 )08/11/2021 8:32 AM EDTBody Mass Index30.71008/11/2021 8:32 AM EDT Plan of Treatment Health MaintenanceDue DateLast DoneCommentsMedicare Annual Wellness (AWV) 1940Depression Hloygamla23/21/1953Adult Virzodx63/21/1961Pneumococcal Vaccine: 50+ Years (1 of 1 - PCV)1988Zoster Vaccines (1 of 2)1988 Fall Risk Yvtlgmfvr43/21/2004COVID-19 Vaccine (1 - 2024- season)2024 Influenza Vaccine [...]
--- OUTSIDE RECORDS SUMMARY | 2025-01-09 13:44 | XMS_ITS | Clinical Summary ---
Author Organization [facility] Address [address] [place] [address] Care Team Providers Care Delivery Sales Worker Name Role Phone Unavailable Primary Care Provider Unavailabl e Social History Tobacco UseTypesPacks/DayYears UsedDateSmoking Tobacco: Never AssessedSex and Gender InformationValueDate RecordedSex Assigned at BirthNot on fileLegal Sex Male04/21/2022 7:07 PM EDTGender IdentityNot on fileSexual OrientationNot on file Last Filed Vital Signs Vital SignReadingTime TakenCommentsBlood Gqddwvft157/25524 12:00 PM EST Pulse--Temperature--Respiratory Rate--Oxygen Saturation--Inhaled Oxygen Concentration--Afodcb04.5 kg (204 lb)03/19/2022 12:00 PM BOQVsiqwb258.4 cm (5' 5.5 )03/19/2022 12:00 PM ESTBody Mass Index33.43003/19/2022 12:00 PM EST Plan of Treatment Not on file
--- OUTSIDE RECORDS SUMMARY | 2025-01-09 13:44 | XMS_ITS | Patient Health Record ---
Author Organization [facility] Address [address] [place] [address] Care Team Providers Care Media Promoter Name Role Phone Alpesh Hampton DO Primary Care Provider Sangita Ho Unavailable [phone] Allergies No Known Allergies Reason For Referral No Information Medications Medication SIG (Take, Route, Frequency, Duration) Notes Start Date End Date Status Meloxicam ActiveTamsulosin HClActiveXtandiActiveTolterodine TartrateActiveALPRAZolamActive amLODIPine BesylateActive Social History Tobacco Use: Social History Observation Description Date Details (start date - stop date) Never Smoker NA - NA Tobacco Use/Smoking Question Answer Notes Patient is a nonsmoker Problems Problem Type SNOMED Code ICD Code Onset Dates Problem Status W/U Status Risk Notes Problem Localized, primary o steoarthritis of the ankle and/or foot (293295184) Primary osteoarthritis, right ankle and foot (M19.071) ActiveconfirmedProblemArthralgia of the ankle and/or foot (191444736)Right ankle pain (M25.571)Activeconfirmed Vital Signs Heart Rate 79 /min 04/05/2024 Hvvnvikjtqq14.8 degrees Kvtnjxdksw52/21/2025Respiratory Rate16 /min04/05/2024 Irfhqczi69 %04/05/20248424Jjtihb06 in04/05/20246133Ctzulb738 lbs04/05/2024BMI29.86 kg/m2 04/05/2024 Encounters Encounter Location Date Provider Diagnosis [facility] (PODIATRY) [address] [place], [place] [address] [address] 01/12/2024 Sangita Valencia Ingrowing nail L60.0 ; Primary osteoarthritis, right ankle and foot M19.071 and Pain in right toe(s) M79.674 [facility] (PODIATRY) [address] [place] [address] [place] [address] 02/28/2024 Sangita Nuno Ingrowing nail L60.0 ; Pain in right toe(s) M79.674 and Primary osteoarthritis, right ankle and foot M19.071 [facility] (PODIATRY) [address] [place] [address] [place] [address] 04/05/2024 Sangita Valencia Ingrowing nail L60.0 ; Pain in right toe(s) M79.674 and Pain in left toe(s) M79.675 Assessments Encounter Date Diagnosis (ICD Code) Assessment Notes Treatment Notes Treatment Clinical Notes Section Notes 01/12/2024 Ingrowing nail (ICD-10 - L60.0) The patient is a pleasant 83-year-old gentleman who presents for reevaluation of recurrent ingrown toenails of both great toes.The patient requires slant back trimming every 4 weeks to prevent paronychia.Hallux nails were trimmed today and he noted pain relief immediately. The remainder of his nails were trimmed as a courtesy.Follow-up in 4 weeks, sooner if any issues arise.01/12/2024rimary osteoarthritis, right ankle and foot (ICD-10 - M19.071)The patient has end-stage osteoarthritis of the right ankle. He has no pain at present. He does admit to stiffness. We discussed the potential for a custom brace but he is not interested in pursuing at this time.02/28/2024Ingrowing nail (ICD-10 - L60.0)The patient is a pleasant 83-year-old gentleman who presents for reevaluation of painful ingrown toenails of both great toes. The patient requires slant back trimming every month to avoid developing paronychia.Nails were trimmed and he noted pain relief immediately. The remainder nails were also trimmed as a courtesy.Follow-up in 4 weeks.02/28/2024Pain in right toe(s) (ICD-10 - M79.674) 04/05/2024Ingrowing nail (ICD-10 - L60.0)The patient is a pleasant 83-year-old gentleman who presents for reevaluation of recurrent ingrown toenails of both great toes.The patient requires slant back trimming every 4 weeks to prevent paronychia.Hallux nails were trimmed today and he noted pain relief immediately. The remainder of his nails were trimmed as a courtesy.Follow-up in 4 weeks, sooner if any issues arise.04/05/2024Pain in right toe(s) (ICD-10 - M79.674) 04/05/2024Pain in left toe(s) (ICD-10 - M79.675)02/28/2024Primary osteoarthritis, right ankle and foot (ICD-10 - M19.071)The patient denies right ankle pain at present. He does admit to stiffness. He is not interested incustom bracing, Physical therapy, or surgery at this time.4Pain in right toe(s) (ICD-10 - M79.674) Plan Of Treatment No Information Insurance Providers Payer Name Payer Address Payer Phone Subscriber Number Group Number Insured Name Patient Relationship to Insured Coverage Start Date Coverage End Date [place] [address] [place] [address] [id number] Zachery Scanlon - patient is the [id number] Medications Administered Medication Instructions Date of Administration Dosage Notes Betamethasone Acetate mLBetamethasone Bzsjfec04 mL Medical (General) History Medical History History ICD Code arthritis right femur fracturehypertensionSurgical History Surgery Date(Month/Year) colonoscopy TRUS/Bxleft TKAright TKAleft THAright femur pinning
--- OUTSIDE RECORDS SUMMARY | 2025-01-09 13:44 | XMS_ITS | Clinical Summary ---
Author Organization [facility] Address [address] [place] [id number] Care Team Providers Care Felting Machine Operator Helper Name Role Phone Alpesh Hampton DO Primary Care Provider [phone] Allergies No known active allergies Medications MedicationSigDispense [...] Active Problems ProblemNoted DateDiagnosed DateHistory of prostate zrrayr0508/17/2017Prostate psagug4909/29/2016 Social History Tobacco UseTypesPacks/DayYears UsedDateSmoking Tobacco: NeverSmokeless Tobacco: Former Tobacco Cessation:Counseling Given: Not Answered Area Deprivation IndexAnswerDate RecordedNational Score (1-100), lower number is lower srij985403/30/2024State Score (1-10), lower number is lower bmse025 Data from: https://www.neighborhoodatlas.medicine.[facility].edu/. Last address used for [address] [place] [address]/30/2024Sex and Gender InformationValueDate RecordedSex Assigned at BirthNot on fileLegal IxiEgmd1409/10/2016 11:38 AM EDT Gender IdentityNot on fileSexual OrientationNot on file Last Filed Vital Signs Vital SignReadingTime TakenCommentsBlood Dxkutlnq154/8204/03/2024 4:02 PM EDT Egoii274103/30/2024 2:33 PM YAWJxfjhikeiti96.6 ??C (97.8 ??F)03/30/2024 2:33 PM ESTRespiratory Rate--Oxygen Zocslflsbe58%03/30/2024 2:33 PM ESTInhaled Oxygen Concentration--Kyhyti76.8 kg (209 lb)08/17/2017 10:25 AM RKKVmcedh910.1 cm (5' 7.75 )09/29/2016 12:43 PM EDTBody Mass Index32.01009/29/2016 12:43 PM EDT Plan of Treatment Health MaintenanceDue DateLast DoneCommentsAnxiety Jnlrvoavs18/21/1957Depression Coceffoaf34/21/1957Shingrix Vaccine (1 of 2)1957Medicare Annual Wellness Visit05/09/2003RSV Vaccine (1 - 1-dose 75+ series)2013Covid-19 Vaccine (3 - Pfizer risk series)/, 03/04/2020dvance Directive Hgxsssghby11/01/2025Influenza Vaccine (#1)/09/2022, 11/25/2021, 10/23/2019, Additional history existsDiabetes Ucjtqrmov09/13/732980/, 01/18/2023, 01/17/2023, Additional history existsDTaP,Tdap,Td Vaccine (3 - Td or Tdap)/11/2022, 1Pneumococcal Vaccine: 50+Completed 10/23/2019, 12/27/2017, 02/07/2015 Insurance Care Teams Team MemberRelationshipSpecialtyStart DateEnd Date Alpesh Hampton DO PCP - GeneralInternal Medicine09/10/16
--- OUTSIDE RECORDS SUMMARY | 2025-01-09 13:44 | XMS_ITS ---
Author Organization [facility] Address [address] [place], [place] [id number] Care Team Providers Care Manager Primary Name Role Phone Alpesh Hampton DO Primary Care Provider [phone] Active Problems ProblemNoted DateDiagnosed DateHistory of prostate pqwyzn2808/17/2017Prostate evuyfe3309/29/2016 Current Treatment and Therapy Plans No current plan information found. Past Treatment and Therapy Plans No past plan information found. Treatment Summaries Prostate cancer (HCC)* Treatment Summary and Survivorship Care Plan for Prostate Cancer Provided by: Funmi Santos APRN.CNP General Information Patient Name: David Scanlon Patient : 1940 Patient phone: Email: [email or web address] Health Care Providers Primary Care Provider: Dr. Alpesh Hampton Urologic Surgeon: Dr. Jaguar Batres Radiation Oncologist: Dr. Alvarado Smith Other Providers: Funmi Santos APRN.CNP Treatmet Summary Diagnosis Cancer Type: Adenocarcinoma of the prostate Location: Right base, right lateral base Diagnosis Date (year): August 24, 2016 Histology Subtype: Prostate Cancer Stage:IIB M2eD3D2 Pj Score: (4+3) 7 PSA at Diagnosis: [...] you may be interested in: www.cancer.net chemocare.com Disability Advocate Nutrition And Dietetics Instructor Art Therapy PSA (Prostate Cancer Support Group) meets the tuesday of every month from 2 PM to 3 PM, at [address] [place] [address] Mariela Jonesy Prepared by: Funmi Santos APRN.WALLPAPERER HELPER Delivered on: August 17, 2017 - This [...]
--- OUTSIDE RECORDS SUMMARY | 2025-01-09 13:47 | XMS_ITS | CCD ---
Author Organization [facility] CliniSyvt Care Team Providers Care Animal Ride Manager Name Role Phone SHAUN, DR HUSAIN Primary [...] Unavailable DO Alpesh Dunn Primary Care Provider [phone] MD Marc Mckinney Admit Provider MD Marc Mckinney Attending Provider LAQUITA Joshi Other Provider Unavailable LAQUITA Samuels Other Provider Unavailable LAQUITA Gonzalez Other Provider Unavailable LAQUITA Dawkins Other Provider Unavailable LAQUITA Rendon Other Provider Unavailable LAQUITA Leyva Other Provider Unavailable MD Yadiel Yanez Other Provider SONAM Gan Other Provider [phone] DO Jacquie Cox Other Provider [phone] MD Timi Mercado Other Provider [phone] DO Sherwin Cavanaugh Other Provider MD Daniel [...] Unavailable Alpesh Dunn DO Primary Care Provider [phone] Lasr Avelar MD Attending Provider [phone] Alpesh Dunn DO Primary Care Provider DONNA [...] (20 sources)Dihydropyridine Calcium Channel BlockerStart: 06-29-2017 End: 12-36-4799tlPXSBNnmm (NORVASC) 5 mg tablet 06/29/2017 Activeaspirin 81 mg delayed release oral tablet (9 sources)Platelet Aggregation Inhibitor, Nonsteroidal Anti-inflammatory Drug Start: 10-08-2016 End: 34-68-8956Tzwosbn (Madi Low Dose Aspirin) 81 mg Tablet,Delayed Release (Dr/Ec) Active 81 MG PO Twice daily February 02, 2023 8:10amtake 1 tablet by mouth every twenty-four hoursAspirin 81 MG 1 tablet Orally Once a day ActiveDiclofenac (8 sources)Nonsteroidal Anti-inflammatory DrugStart: 14-61-9887kknco 2 g topically three times daily as needed for painDiclofenac Sodium 1 % Gel Active 2 GM TOPICAL Three times daily as needed for pain January 27, 2024 12:00am Start: 02-02-2023 End: 62-64-0640wiyif 2 g topically three times dailyDiclofenac Sodium 1 % Gel Discontinued 2 GM TOPICAL Three times daily 03 08February 02, 2023 12:00am January 27, 2024 11:26amStart: 63-05-4285ghbdi 2 g topically three times dailyDiclofenac Sodium Active 2 GM TOPICAL Three times daily 1 February 02, 2023 12:00amDiclofenac Sodium 1 % 2 g topical Externally TID Activeenzalutamide 40 mg oral tablet (15 sources)Androgen Receptor InhibitorStart: 92-62-9855itbk 1 tablet by mouth four times dailyEnzalutamide 40 mg tablet Active 40 MG PO Four times daily June 21, 2023 11:00pmStart: 01-19-2023 End: 49-68-0839pcam 1 capsule by mouth once dailyEnzalutamide (Xtandi) 40 mg Capsule Discontinued 160 MG PO Daily with supper January 19, 2023 12:00am June 22, 2023 8:46amtake 4 tablets by mouth once dailyenzalutamide (XTANDI) 40 mg tablet Take 160 mg by mouth once daily. Activemeloxicam 15 mg oral tablet (20 sources)Nonsteroidal Anti-inflammatory DrugStart: 93-98-9261xhag 1 tablet by mouth once dailyMeloxicam 15 mg tablet Active 0 .ROUTE .COMPLEX 90 March 08, 2024 7:06am Take 1 tablet by mouthonce dailyStart: 09-15-2016 End: 98-62-1599iiuy 1 tablet by mouth once dailyMeloxicam 15 mg tablet Discontinued 15 MG PO Daily January 27, 2024 12:00am March 08, 2024 7: 06amtamsulosin hydrochloride 0.4 mg oral capsule (20 sources)alpha-Adrenergic BlockerStart: 01-19-2023 End: 47-72-7847kqav 1 capsule by mouth twice dailyTamsulosin (Flomax) 0.4 mg Capsule Active 0.4 MG PO Twice daily February 02, 2023 8:10amtake 1 capsule by mouth every twenty-four hoursTamsulosin HCl 0.4 MG 1 capsule Orally Once a day Vwminy53 hr tolterodine tartrate 4 mg extended release oral capsule (16 sources)Cholinergic Muscarinic AntagonistStart: 01-19-2023 End: 00-10-3863mhls 1 capsule by mouth once dailyTolterodine 4 mg Capsule,Extended Release 24hr Active 4 MG PO Daily 30 February 02, 2023 8:10amtolterodine (DETROL) 2 mg tablet 4 mg. Active Completed/Discontinued Medications MedicationDrug Class(es)DatesSig (Normalized)Sig (Original)acetaminophen 500 mg oral tablet (6 sources)Start: 02-02-2023 End: 32-13-4084grgr 1 tablet by mouth every four hours [...] mg oral tablet (20 sources)BenzodiazepineStart: 02-18-2023 End: 18-39-2929hayd 0.5 tablet by mouth once daily at dinner, then take 1 tablet by mouth once at bedtimeAlprazolam 0.25 mg tablet Discontinued 0 PO Daily 135 90 June 23, 2023 11:00pm January 09, 2024 5:09pm 1/2 PO w/ evening meal and 1 PO q HSStart: 89-06-9820xiqe 0.5 tablet by mouth once daily at mealtime, then take 1 tablet by mouth once daily at bedtimeALPRAZolam 0.25 MG TAKE 1/2 TABLET BY MOUTH EVERY EVENING WITH MEAL AND TAKE ONE TABLET BY MOUTH EVERY NIGHT AT BEDTIME Jul, ActiveStart: 10-08-2016 End: 10-77-4216ohzg 1 tablet by mouth once dailyAlprazolam 0.25 mg Tablet Discontinued 0.25 MG PO Daily October 07, 2016 11:00pm January 19, 2023 5:00pmStart: 73-60-9412HDVCZFzgzb (XANAX) 0.25 mg tablet 5 08/24/2016 Active ciprofloxacin 500 mg oral tablet (2 sources)Quinolone AntimicrobialStart: 12-19-2023 End: 90-44-3957ltab 1 tablet by mouth twice dailyCiprofloxacin Hcl 500 mg tablet Discontinued 500 MG PO Twice daily 20 08December 19, 2023 12:00amDecember 2023 11:25amdoxazosin 2 mg oral tablet (3 sources)alpha-Adrenergic BlockerStart: 10-08-2016 End: 92-14-9349atzk 1 tablet by mouth once dailyDoxazosin 2 mg Tablet Discontinued 2 MG PO daily October 07, 2016 11:00pm January 19, 2023 5:01pm 0.3 ml enoxaparin sodium 100 mg/ml prefilled syringe (6 sources)Low Molecular Weight HeparinStart: 06-24-2023 End: 72-90-6871Spmdnmtvra (Lovenox) 30 mg/0.3 mL syringe Discontinued 30 MG SUBCUT Daily June 23, 2023 11:00pm June 24, 2023 8:23amStart: 01-19-2023 End: 28-47-6316vjqwpb 30 mg by subcutaneous injection every twelve hours Enoxaparin 30 mg/0.3 mL Syringe Discontinued 30 MG SUBCUT Q12H January 19, 2023 12:00am 2022 8:11amergocalciferol 1.25 mg oral capsule (9 sources)Provitamin D2 CompoundStart: 01-19-2023 End: 77-42-1993nfjz 1 capsule by mouth every weekErgocalciferol (Vitamin D2) 1,250 mcg (50,000 unit) Capsule Discontinued 1250 MCG PO every week 07 06February 02, 2023 8:10am January 27, 2024 11:26amferrous sulfate 324 mg delayed release oral tablet (6 sources)Start: 02-02-2023 End: 99-30-2946mrhz 1 tablet by mouth once dailyFerrous Sulfate 324 mg (65 mg iron) Tablet,Delayed Release (Dr/Ec) Discontinued 324 MG PO Daily February 02, 2023 12:00am June 24, 2023 8:17amtake 1 tablet by mouth three times weeklyFerrous Sulfate 325 (65 Fe) MG 1 tablet Orally Three times a Week Active ibuprofen 400 mg oral tablet (2 sources)Nonsteroidal Anti-inflammatory DrugStart: 06-24-2023 End: 72-99-2075mcmm 1 tablet by mouth every six hoursIbuprofen 400 mg tablet Discontinued 400 MG PO Every 6 hours June 23, 2023 11:00pm January 27, 2024 11:26amlidocaine 0.04 mg/mg medicated patch (9 sources)Antiarrhythmic, Amide Local AnestheticStart: 01-19-2023 End: 30-93-8340dqkwy 1 dose topically once dailyLidocaine 4 % Adhesive Patch,Medicated Discontinued 1 PATCH TOPICAL Daily February 02, 2023 8:10am June 24, 2023 8:18ammelatonin 5 mg oral tablet (6 sources)Start: 02-02-2023 End: 28-25-5098tbrr 1 tablet by mouth once daily at bedtime as needed for sleep Melatonin 5 mg Tablet Discontinued 5 MG PO Daily at bedtime as needed for Sleep February 02, 2023 12:00am June 24, 2023 8:18ammetFORMIN hydrochloride 850 mg oral tablet (4 sources)BiguanideStart: 02-02-2023 End: 46-09-6910zeoq 1 tablet by mouth once dailyMetformin 850 mg Tablet Discontinued 850 MG PO Daily with supper February 02, 2023 12:00am June 22, 2023 8:46amMultivitamin preparation (1 source)Start: 10-08-2016 End: 82-89-6887tzio 1 tablet by mouth once dailyMultivitamin Discontinued 1 TAB PO daily October 07, 2016 11:00pm January 19, 2023 5:01pmMultivitamin Tablet,Chewable (2 sources)Start: 10-08-2016 End: 52-86-8796evfj 1 tablet by mouth once dailyMultivitamin Tablet,Chewable Discontinued 1 TAB PO daily October 07, 2016 11:00pm January 19, 2023 5:01pm ondansetron 4 mg disintegrating oral tablet (4 sources)Serotonin-3 Receptor AntagonistStart: 02-02-2023 End: 09-02-9454cubr 1 tablet by mouth every eight hours [...] oral tablet (4 sources)Opioid AgonistStart: 02-02-2023 End: 53-30-4604gkeq 1 tablet by mouth every eight hours as needed for pain Oxycodone 5 mg Tablet Discontinued 5 MG PO Every 8 hours as needed for Pain (Scale Score 7-10) 15 5December 2022June 22, 2023 8:46amSod Picosulf-Mag Ox-Citric Ac (2 sources)Start: 01-12-2024 End: 61-84-3383Ssb Picosulf-Mag Ox-Citric Ac (Clenpiq) 10 mg-3.5 gram- 12 gram/175 mL solution Discontinued 175 MLPO .COMPLEX 350 1 January 12, 2024 12:00am January 27, 2024 11:26am Follow instructions given by office Problems Active Problems Problem ClassificationProblemDateDocumented DateEpisodic/Chronic Administrative/social admission (4 sources)Other reduced mobility; Translations: [Impaired mobility and activities of daily living]20-20-1433EfgrmekhMowj and rectal conditions (5 sources)Lesion of rectum; Translations: [Disease of anus and rectum, unspecified]Onset: 862189-27-6518RneykbyvPsvfxrw disorders (16 sources)Generalized anxiety disorder; Translations: [Generalized anxiety disorder]ChronicCancer of prostate (20 sources)Carcinoma of prostate; Translations: [Malignant neoplasm of prostate]Onset: 40-11-9380AmfjbtuOzmpayj on above:Dx: 2017 s/p radiation and ADT Deficiency and other anemia (1 source)Anemia; Translations: [Anemia, unspecified]01-03-1479Ftpoxtct Deficiency and other anemia (1 source)Anemia, unspecified; Translations: [Anemia, unspecified]02-02-2023 EpisodicDiabetes mellitus without complication (2 sources)Diabetes mellitus; Translations: [Type 2 diabetes mellitus without complications]54-23-6265XwlxdkvNmygktua mellitus without complication (3 sources)Impaired fasting glycemia; Translations: [Impaired fasting glucose] 47-92-2286JtiudgiwSnhngbmrqa disorders (10 sources)Gastro-esophageal reflux disease with esophagitis; Translations: [Gastroesophageal reflux disease with esophagitis without hemorrhage]06-22-2023 ChronicEssential hypertension (20 sources)Essential hypertension; Translations: [Essential (primary) hypertension]ChronicGenitourinary symptoms and ill-defined conditions (14 sources)Urgency of urination; Translations: [Delay when starting to pass urine]Onset: 02-38-4698VopvaxzlGpxcudjpflo of prostate (16 sources)Benign prostatic hyperplasia with lower urinary tract symptoms; Translations: [Benign prostatic hyperplasia]Onset: 26-41-1789IyirakzRyrtpmsgsgxq with complications and secondary hypertension (1 source)Hypertensive heart disease with heart failure; Translations: [HTN HEART DISEASE W/HEART FAIL]Onset: 36-49-1262PosrrziJwookfs and fatigue (3 sources)Other fatigue; Translations: [Fatigue]EpisodicOpen wounds of head; neck; and trunk (1 source)Laceration without foreign body of scalp, subsequent encounterEpisodic Osteoarthritis (10 sources)Arthritis; Translations: [Unspecified osteoarthritis, unspecified site]ChronicOther acquired deformities (10 sources)Acquired unequal leg length; Translations: [Unequal limb length (acquired), unspecified site]EpisodicOther aftercare (2 sources)Other residential (current) drug therapy; Translations: [OTH CARE HOME CURRENT DRUG THERAPY]Onset: 30-57-2847LvummklePogsx and unspecified benign neoplasm (10 sources)Tubular adenoma of colon; Translations: [Benign neoplasm of colon, unspecified]EpisodicOther and unspecified benign neoplasm (2 sources)Polyp of colon; Translations: [Polyp of colon]41-61-9637Putnmukz Comment on above:Tubulovillous adenoma w/o dysplasia - [...] urethra (1 source)Urethral fistula; 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]Onset: 29-98-5546OaoosyqNcnpo fractures (1 source)Multiple fractures of ribs, right side, subsequent encounter for fracture with routine healingEpisodicOther gastrointestinal disorders (10 sources)Radiation enterocolitis; 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]EpisodicOther gastrointestinal disorders (2 sources)Diarrhea; Translations: [Diarrhea, unspecified]96-75-4953Delpxabt Other gastrointestinal disorders (1 source)Diarrhea, unspecified; Translations: [Diarrhea]59-60-1929BawjaxyhLlrsl injuries and conditions due to external causes (2 sources)Radiation sickness, unspecified, sequela; Translations: [Late effect of radiation]Onset: 617836-34-1903CylhmcsqVsvhv lower respiratory disease (1 source)Other forms of dyspneaEpisodicOther nervous system disorders (1 source)Dysarthria and anarthriaEpisodicOther nervous system disorders (1 source)Hip pain; Translations: [Other acute postprocedural pain]01-20-2023 EpisodicOther nervous system disorders (1 source)Other acute postprocedural pain; Translations: [Pain in joint, pelvic region and thigh]52-75-3594PovyqdliHvpno nutritional; endocrine; and metabolic disorders (15 sources)Body [...] endocrine; and metabolic disorders (2 sources)Overweight; Translations: [Overweight]05-66-5275NmokurzgDndmc nutritional; endocrine; and metabolic disorders (1 source)Weight loss; Translations: [Abnormal weight loss]10-81-3207Kvwewbkp Comment on above:EGD: normal - 01/2024,Colonoscopy: polypectomy [...] on diagnostic imaging of other specified body structures]20-31-8536WbpfbsgItcru screening for suspected conditions (not mental disorders or infectious disease) (4 sources)Rising PSA following treatment for malignant neoplasm of prostate; Translations: [RISING PSA FLW TXMALG MARY PROSTATE]Onset: 27-98-7522GemalbbxUpubd skin disorders (1 source)Localized swelling, mass and [...] prostate; Translations: [History of malignant neoplasm ofprostate]Onset: 847146-48-2750Phnjyldg Esophageal disorders (4 sources)Esophageal disorders; Translations: [Gastroesophageal reflux disease with esophagitis without hemorrhage]Fracture of lower limb (6 sources)Fracture of femur; Translations: [Unspecified fracture of right femur, initial encounter for closedfracture]Onset: 048984-80-7325Aguxszir Other connective tissue disease (4 sources)Pain in right lower leg; Translations: [PAIN IN RIGHT LOWER LEG] Onset: 81-36-4054DqcxpttxOxtxu connective tissue disease (1 source)Other specified soft tissue disorders; Translations: [OTHER SPEC SOFT TISSUE DISORDERS]Onset: 28-67-9145MfeghqtkEmkdj lower respiratory disease (4 sources)Chronic cough; Translations: [CHRONIC COUGH]Onset: 26-94-4116Zupnphio Other nutritional; endocrine; and metabolic disorders (2 sources)Abnormal weight loss; Translations: [Loss of weight]Onset: 01-27-2024 57-48-7366Xfwdtagr Results Test NameValueInterpretationReference RangeFacilityAmbulatory Visit Summaryon 70-55-6910Gkuabmakzh Visit SummaryAmbulatory Visit Summary PARK GUIDRY :1940 [...] Luis GARCIA MD Where: [facility] [address] [place] [address]- You Need to Schedule the Following Appointments Follow Up with JOSE LYNN, GLORIA Brooks When: Where: [address] [place] [address]- Medications What How Much When Instructions Unchanged [...] getting an erection. ??? (more content not included)...[facility] HospitalU[facility] Office/Clinic Noteon 94-02-0724Mlwzdua Office/Clinic NoteUrology Office/Clinic Note Chief Complaint 6 [...] genitourinary system) CT AP w con 12/24/23 [facility] - No suspicious findings. CT AP w con 01/27/24 [facility] - Unremarkable bladder. Prostate seeds present. Irregular [...] Vesicointestinal fistula) Had appt with GI at [facility] d/t rectal ulcers. See above for cysto findings. Reports he has seen the appropriate provider and declined surgery. Follow-up With When Contact Information Luis GARCIA MD, URL [address] [place] [address]- Additional Instructions: 6 mos w/ PSA and [...] Colovesical fistula Insomnia Kn (more content not included)...[facility] HospitalComment on above:Result Comment: Electronically Signed By: Luis GARCIA MD\.br\Date and Time Signed: 07/20/24 10:40 EDT\.br\Electronically Co-Signed By: Janet Jasso\Date and Time Co-Signed: 07/20/2509:32 EDTCNOVon 22-97-8059WBEG Office Visit (URFMOB) PARK GUIDRY ([id number]) 1940 M Date Time Provider Department 05/09/24 3:30 PM TODD CABALLERO URFMOB During your visit today, we recorded the following information about you: Blood pressure 146/82 Nikki Wallace RN 05/09/2024 9:00 PM Signed Post void residual done on patient with 0 cc residual volume remaining. notified. LAQUITA Ramirez Molly, MD 05/09/2024 9:00 PM Signed [facility] UROLOGY NEW PATIENT CLINIC NOTE SERVICE DATE: 05/09/2024 NAME: Park Guidry REFERRED BY: Donna Singh [id number] [facility] [address] 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 - enzalutamide (XTANDI) 40 mg tablet Take 160 mg by mouth once daily. - amLODIPine (NORVASC) 5 mg tabl (more content not included)...NormalFairview HospitalCreatinine (Bld) [Mass/Vol]Ordered By: Imjosé antonio Avelar on 04-03-2024 Creatinine [Mass/Vol]Whole blood creatinine measurement0.6-1.3FMedina HospitalComment on above:ER/ESD physician is notified/shown all ISTAT results.Critical values may be confirmed by laboratorytesting ifdeemed necessary by ER attending doctor.ISTAT XRay CREon 79-25-1180Saupmtjlwe [Mass/Vol]0.9 mg/dLNormal0.6-1.3The [facility] Physician GroupComment on above:Result Comment: ER/ESD physician is notified/shown all ISTAT results. Critical values may be confirmed by laboratory testing if deemed necessary by ER attending doctor.Performed By: #### ISCRE #### [place] [address] USAISTAT GFR>60.0NormalThe [facility] Physician GroupComment on above:Result Comment: PERFORMED BY: [place] [address] PATHOLOGIST SURGERY TECHNICIAN PATTY ZHENG M.D.Performed By: #### ISCRE #### [facility] [id number] [facility] pelvis wo/w conon 58-65-1739GY pelvis wo/w [facility] [address] [place] [address] MRI Report Signed Patient: Park Guidry MR#: [id number] : 1940 Acct:[id number] Age/Sex: 83 / M ADM Date: 04/03/24 Loc: MR Room: Type: [facility] Attending Dr: Lars Avelar MD Copies [...] Jr, DO 04/03/24 1046 Signed By: 04/03/24 1058[facility] Physician GroupMagnetic resonance imaging reportOrdered By: Jackson Kerns on 26-82-7434Xxpwx reportELYRIA [facility]OR[facility] Main [address] [place] [address] MRI Report Signed Patient: Park Guidry MR#: [id number] : 1940 Acct:[id number] Age/Sex: 83 / M ADM Date: 5 Loc: MR Room: Type: [facility] Attending Dr: Lars Avelar MD Copies [...] 10:58 AM Dictation Location: RADIO-PC-22 Transcribed By: [facility] 04/03/24 1058 Dictated By: Jackson Kerns Jr, DO 04/03/24 1046 Signed By: 04/03/24 1058 [facility] HospitalNo Panel InformationOrdered By: Lars Avelar on 16-05-7107Vehbtzj Estimated GFR (eGFR)> 60.0[facility] CNOVon 03-74-2741JLBIAxbdux Visit ([facility]) HEENAJASWINDERPARK [place] ([id number]) 1940 M Date Time Provider Department 03/30/24 2:40 PM DONNA SINGH [facility] During your visit today, we recorded the [...] for internal providers or letter via the [employer] for external providers. Chief Complaint: ulcer of anus and rectum History of Present Illness: Park Guidry is a 83 year old male presents today for evaluation of rectal ulcer. MRI scheduled for 04/03/24 at [facility] CT CAP 01/27/24 - [facility] Scan on 03/05/2024 3:53 PM by Celia Garcia: [facility]- CT Chest,Abdomen and Pelvis 01/27/24 Impression: Circumferential irregular wall thickening of the distal sigmoid colon and rectum likely corresponding with patient's history of rectal ulceration and suspicion for malignancy. No adjacent enlarged lymph nodes. No distal metastatic disease of the chest abdomen or pelvis Sigmoidoscopy 03/02/24 - Dr. Avelar Scan on 03/05/2024 3:50 PM by Celia Garcia: [facility]- Sigmoidoscopy Notes 03/02/24 Rectum: Excavated ulcerated lesion in the rectum (4 cm), biopsied using jumbo biopsy Pathology 03/02/24 Scan on 03/22/2024 4:01 PM by Celia Garcia: [facility]- Pathology Report 03/02/24 - Ulcer with reactive stromal atypia, negative for carcinoma Colonoscopy 01/27/24 - Dr. Avelar Scan on 03/05/2024 3:51 PM by Celia Garcia: [facility]- EGD AND Colonoscopy Report 01/27/24 Ascending colon: [...] exam reveals anterior divot consistent with ulcer Fur Puller present: Yes, Ximena Sheets Anoscopy could not be performed due to patient discomfort The sensitive examination was discussed with the Patient or Patient's Authorized Caregivers Homecare. As applicable, any other physician, advance practice provider, medical student, or other health professional student that will be observing or involved in the sensitive examination for educational or training purposes was discussed with the Patient or Authorized Caregivers Homecare. The Patient or Authorized Caregivers Homecare has agreed to proceed with the sensitive [...] certainly does not wa (more content not included)...NormalParkview Health Montpelier HospitalCNPNon 73-97-0465LFCOAdbadybit ([facility]) PARK GUIDRY ([id number]) 1940 M Date Time Provider Department 03/22/24 DONNA SINGH [facility] During your visit today, we recorded the following information about you: Ilan Padilla, RN 03/22/2024 10:47 AM Signed Called [facility] Wedding Transportation Driver, Lamar Matthew, and told her I was [...] 08/17/2017 Encounter Status:Closed by ILAN PADILLA on 03/22/24[facility] 14-99-9323EDGCUfwhspxcg ([facility]) PARK GUIDRY ([id number]) 1940 M Date Time Provider Department 03/09/24 DONNA SINGH [facility] During your visit today, we recorded the [...] 08/17/2017 Encounter Status:Closed by CELIA GARCIA on 03/09/24[facility]) PARK GUIDRY ([id number]) 1940 M Date Time Provider Department 03/09/24 DONNA SINGH [facility] During your visit today, we recorded the [...] 08/17/2017 Encounter Status:Closed by CELIA GARCIA on 03/09/24[facility] 97-97-5380NPOLQuaqgprbz ([facility]) PARK GUIDRY ([id number]) 1940 M Date Time Provider Department 03/08/24 DONNA SINGH [facility] During your visit today, we recorded the [...] 08/17/2017 Encounter Status:Closed by CELIA GARCIA on 03/08/24[facility] REFER[facility] LAB CONSULTon [id number] REPORTNormal St[facility] on above:Order Comment: Specimen Type: FORMALIN-FIXED PARAFFIN-EMBEDDED TISSUE SPECIMEN [facility] Address: [address] [place], [place] [address]Jqpfif Comment: Surgical Pathology Report Case: [id number] Authorizing Provider: Leyda Heaton MD Collected: 03/07/2024 02:35 PM Ordering Location: [facility] Received: 03/07/2024 02:34 PM [facility] Pathologist: Josephine Fritz MD Specimen: Block(s) and/or Slide(s), 3 SLIDES & 1 BLOCK ([id number]: [id number])Performed By: #### [id number] #### [facility] CLIA [id number] [address] [place] [address] [place] STATES OF AMERICACLINICAL HISTORYCONSULT REQUESTEDNoFlower HospitalComscheurer hospital on above:Order Comment: Specimen Type: FORMALIN-FIXED PARAFFIN-EMBEDDED TISSUE SPECIMEN [facility] Address: [place], [place] [address]Pdhsbgvfj By: #### [id number] #### [facility] CLIA [id number] [address] [place] [address] OF [facility]FIELDDIAGNOSIS COMMENTNormal [facility] on above:Order Comment: Specimen Type: FORMALIN-FIXED PARAFFIN-EMBEDDED TISSUE SPECIMEN Ordering Facility: [facility] Address: [place], [place] [address]Dafbih Comment: Thank you for allowing us the [...] to contact the GI consultation service at [phone] with questions or if additional follow-up information becomes available.Performed By: #### [id number] #### [facility] CLIA [id number] [address] [place] [address] STATES OF AMERICAFINAL DIAGNOSISNormal [facility] on above:Order Comment: Specimen Type: FORMALIN-FIXED PARAFFIN-EMBEDDED TISSUE SPECIMEN Ordering Facility: [facility] Address: [place], [place] [address]Rnxabd Comment: Rectal lesion, biopsy (A): - Ulcer with reactive stromal atypia, negative for carcinoma. Performed By: #### [id number] #### [facility] CLIA [id number] [address] [place], [place] [address] [place] STATES OF AMERICAFINAL PERFORMING LABNormal [facility] HospitalComscheurer hospital on above:Order Comment: Specimen Type: FORMALIN-FIXED PARAFFIN-EMBEDDED TISSUE SPECIMEN Ordering Facility: [facility] Address: [place] [address]Aqeqtc Comment: Diagnostic interpretation performed at: [facility], [address] [place] [address], [place] [id number] CLIA# [id number] Barrel Assembler Helper: KALYN Bailonerformed By: #### [id number] #### [facility] CLIA [id number] [address] [place], [place] [address] [facility] OF [facility] SPRINGFIELDAmbulatory Visit Summaryon 30-50-1029Kohepwezqs Visit SummaryAmbulatory Visit Summary PARK GUIDRY :1940 [...] Luis GARCIA MD Where: [facility] [address] [place] [address]- You Need to Schedule the Following Appointments Follow Up with Luis GARCIA MD, URL When: Where: [facility] [address], [place] [address]- Medications What How Much When Instructions Unchanged [...] early improves the (more content not included)...Normal [facility] HospitalCNPNon [id number] ([facility]) PARK GUIDRY ([id number]) 1940 M Date Time Provider Department 03/06/24 DONNA SINGH [facility] During your visit today, we recorded the [...] 08/17/2017 Encounter Status:Closed by CELIA GARCIA on 03/06/24[facility] HospitalUrology Office/Clinic Noteon 16-04-9750Ybhjiga Office/Clinic Note Urology Office/Clinic Note Chief Complaint [...] 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 See procedure section, highly suspect CVF however too much debris to visualize any fistula. Follow up after below or sooner if needed. Pt understands and agrees with plan. -Will send updated records to GI at [facility]. 3. Rising PSA following treatment for malignant neoplasm of prostate (R97.21: Rising PSA following treatment for malignant neoplasm of prostate) PSA: 01/19/21 - 0.10 07/22/21 - 3.30 01/20/22 - 0.52 07/21/22 - 1.07 01/12/23 - <0.13 08/12/23 - <0.13 01/23/24 - <0.1 TRUS/bx 08/24/16 - Columbia 7 (4+3) x 1 core 9% of [...] [facility] [address], [place] [address]- Additional Instructions: 07/20/24 for 6 m with [...] of prostate Historical Elevate (more content not included)...[facility] HospitalComment on above:Result Comment: Electronically Signed By: Luis GARCIA MD\.br\Date and Time Signed: 03/06/24 15:33 EST\.br\Electronically Co-Signed By: Kristin Dennis\.br\Date and Time Co-Signed: 03/06/24 15:29 ESTLon 03-02-2024 Specimen: [id number] Received: 03/02/24 Status: KATLYN Anderson Num: [id number] Spec Type: Surgical Subm Dr: Lars Avelar MD Tissues: A Colon Biopsy (RECTAL LESION BX) Procedures: HE/2, Gross/Micro L4, AE1-AE3 Age/ Patient Sex Location Account Attending Physician Park Guidry/M [id number] Lars Avelar MD SPEC NUM: [id number] RECD: 03/02/24 STATUS: KATLYN ANDERSON NUM: [id number] JONI: 03/02/[address] [facility] [address]: Lars Avelar MD ENTERED: 03/02/[address] [facility] [address]: SPEC TYPE: Surgical DEPT: S ORDERED: [...] [id number] Received: 03/02/24-1020 Status: KATLYN Anderson Num: [id number] Spec Type: Surgical Subm Dr: Lars Avelar MD Tissues: A Colon Biopsy (RECTAL LESION BX) Procedures: HE/2, Gross/Micro L4, AE1-AE3 Patient: Park Guidry [id number] (Continued) Specimen: [id number] Received: 03/02/24 (Continued) Signed (signature on file) Mei Luevano MD 03/08/24 1634 Specimen: S2 Received: 03/02/24 Status: KATLYN Anderson Num: [id number] Spec Type: Surgical Subm Dr: Lars Avelar MD Tissues: A Colon Biopsy (RECTAL LESION BX) Procedures: HE/2, Gross/Micro L4, AE1-AE3 Patient: Park Guidry [id number] (Continued) Specimen: S2 Received: 03/02/24 (Continued) Clinical Information Rectal ulcer Gross Description Part A is received in formalin labeled with the patients name, date of , and rectal lesion BX are 3 lucero-white, focally erythematous, friable, 0.2, 0.3 and 0.3 cm in greatest dimension tissue bits. The specimen is entirely submitted in a single cassette. (1, ns, [id number] A) CPT Codes 07834 Specimen: [id number] Received: 03/02/24 Status: KATLYN Anderson Num: [id number] Spec Type: Surgical Subm Dr: Lars Avelar MD Tissues: A Colon Biopsy (RECTAL LESION BX) Procedures: HE/2, Gross/Micro L4, AE1-AE3 Patient: Park Guidry [id number] (Continued) Signed (signature on file) Francois-Hany Luevano MD 03/08/[address] [place] [address] Physician GroupXR FEMUR RIGHT (MIN 2 VIEWS)on [...] Signed by: Florian Sanchez DO 02/05/24 Final resultNormalKettering Health Behavioral Medical CenterAmbulatory Visit Summaryon 59-03-9145Vuyxwtatpq Visit SummaryAmbulatory Visit Summary PARK GUIDRY :1940 [...] Where: [facility] [address] , [place] [phone] Medications What How Much When Instructions New ciprofloxacin (Cipro 500 mg Tab) 1 Tablets By Mouth Every day take one tab day before procedureand one tab after procedure Pickup at [facility] Unchanged enzalutamide (enzalutamide 40 [...] physician if questions or concerns Pharmacy Information [facility]: [address] [place], [place] [id number] [phone] Medications and Immunizations Administered Given Lupron Depot [...] abnormality in the (more content not included)...NormalFisher Brandenburg CenterUrology Office/Clinic Noteon 72-44-6188Urvpmij Office/Clinic NoteUrology Office/Clinic Note Chief Complaint 6mo [...] x 1 core 9% of core involvement. Columbia 7 (3+4) x 1 core, 35% of [...] suspicious findings. CT AP w con 01/27/24 [facility] - Unremarkable bladder. Prostate seeds present. Irregular [...] With When Contact Information Luis GARCIA MD, [facility] [address] [place] [phone] Additional Instructi (more content not included)...[facility] HospitalComment on above:Result Comment: Electronically Signed By: Luis GARCIA MD\.br\Date and Time Signed: 01/30/24 10:58 EST\.br\Electronically Co- Signed By: Sarah Beth Greene\.br\Date and Time Co-Signed: 01/30/24 10:53 ESTBlood Urea Nitrogenon 54-74-2788Ssma nitrogen [Mass/Vol]20 mg/dLNormale [facility] Physician GroupComment on above:Performed By: #### CREAT, BUN #### [facility] [address] [place] [address] USACT abdomen pelvis w conon 61-01-5727NL abdomen pelvis w 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 ([id number]) CT/CT abdomen pelvis w con: Giant rectal [...] Franky Green M.D.01/27/2024 2:46 PM Dictation Location: [place] [address] Transcribed By: [facility] 01/27/24 1446 Dictated By: Franky Green DO 01/27/24 1431 Signed By: 01/27/24 1446NoGerman HospitalCreatinineon 01-27-2024 Creatinine [Mass/Vol]0.97 mg/dLNormal0.70-1.30The [facility] Physician [facility] Comment on above:Performed By: #### CREAT, BUN #### [facility] [address] [place], [place] [address] USACreatinine Clr Calc Pozfxiqo05.87NoBlowing [facility] Physician [facility] HospitalComment on above:Result Comment: PERFORMED BY: [place] [address] PATHOLOGIST SURGERY TECHNICIAN PATTY ZHENG M.D.Performed By: #### CREAT, BUN #### [place] [id number] USAGFR/1.73 sq M.predicted MDRD (S/P/Bld) [Vol rate/Area] mL/min/{1.73_m2}NormalThe [facility] Physician [facility] HospitalComment on above:Performed By: #### CREAT, BUN #### [place] [id number] USACreatinine [Mass/volume] in Serum or PlasmaOrdered By: Lars Avelar on 51-42-8614Tdbgaqyfjm [Mass/Vol]Creatinine [Mass/volume] in Serum or Plasma0.70-1.30[facility] HospitalNo Panel InformationOrdered By: Lars Avelar on 61-42-1636Pmwrwykrh GFR (CKD-EPI)> 60.0 mL/MinOhiohealth Van Wert HospitalPharmacy Creatinine Clearance (Chem53.87[facility] HospitalMiscellaneous Pathology TestSee commentOhiohealth Van Wert HospitalComment on above:See report. Scanned copy available in EMR. Pathology Request for Lab Corpon 95-77-3148Mrtjljuvz Request for Lab CorpNormal The [facility] East Norwegian StreetComment on above:Order Comment: PATHOLOGY GI SPECIMENResult Comment: See report. Scanned copy available in EMR. PERFORMED BY: [address] [address] PATHOLOGIST SURGERY TECHNICIAN PATTY ZHENG M.D.Performed By: #### PATH TO [facility] #### [facility] [address] [place] [id number] USAUrea nitrogen [Mass/volume] in Serum or PlasmaOrdered By: Lars Avelar on 33-65-9401Tdxv nitrogen [Mass/Vol]Urea nitrogen [Mass/volume] in Serum or Plasma7-[facility] HospitalNo Panel Informationon 97-95-6974Svat Prostate Specific Antigen<0.02 ng/mLN/[facility] HospitalComment on above:Tequila ECLIA methodology.Prostate Specific Antigen Total <0.1 ng/mL0.0-4.0[facility] HospitalComment on above:Tequila ECLIA methodology.According to the [place] [employer], Serum PSAshould decrease and remain [...] free prostate specific antigen (PSA)/total PSA ratioon 93-09-0138Puvb PSA/Total PSA [Mass fraction] Serum or plasma free prostate specific antigen (PSA)/total PSA ratio.[facility] HospitalComment on above:Unable to calculate result since [...] for any other population of men.Performed at: [facility] Lab[address] [id number] Director: Yoseph Cowan PhD, Phone: [phone] Panel InformationOrdered By: Alpesh Dunn on 12-07-2023E coli Shiga Toxin EIA [facility] Centeralmonella/Shigella ScreenOhiohealth Van Wert HospitalNo Panel Informationon 13-37-4390Nbtzldgzynx difficile (PCR)(LAB) NegativeOhiohealth Van Wert HospitalMiscellaneous Test CommentSee comment [facility] HospitalComment on above:Specimen Source: ST - Stool - Stool - 700.100Stool Campylobacter Culture Res 1\R\ Campylobacter Culture\R\ No Campylobacter species isolated.[facility] HospitalComment on above:[facility],XR FEMUR RIGHT (MIN 2 VIEWS)on 52-87-6138WC FEMUR RIGHT (MIN 2 VIEWS)History: Right femur [...] by: Florian Sanchez DO 11/14/23 Final resultNormalMercy Sutter Davis HospitalAmbulatory Visit Summaryon 86-57-1024Wrjyuzgolm Visit SummaryAmbulatory Visit Summary PEPITONAVJOTJASWINDEREmiPARK :1940 Visit [...] Follow-Up Appointments Tuesday 11:30 AM EDT Where: [facility] Physical Tx Tuesday 11:30 AM EDT Where: [facility] Physical Tx Tuesday 10:00 AM EDT Where: [facility] Physical Tx 2023 11:30 AM EDT Where: [facility] Physical Tx Tuesday 11:30 AM EDT Where: [facility] Physical Tx 2023 10:45 AM EDT Where: [facility] Physical Tx Tuesday 11:15 AM EDT Where: [facility] Physical Tx You Need to Schedule the Following Appointments Follow Up with JOSE LYNN, Luis No, URL When: Comments: 6 mos w/ PSA and Lupron Where: [facility] [address] , [place] [phone] Medications What How Much When Instructions Unchanged [...] in the body a (more content not included)...[facility] HospitalUrology Office/Clinic Noteon 36-05-5074Fshoyyc Office/Clinic NoteUrology Office/Clinic Note Chief Complaint 6m [...] x 1 core 9% of core involvement. Columbia 7 (3+4) x 1 core, 35% of [...] [address], [place] [phone] Additional Instructions: 6 mos w/ PSA and [...] rt total knee. M (more content not included)...[facility] HospitalComment on above:Result Comment: Electronically Signed By: Luis GARCIA MD\.br\Date and Time Signed: 08/15/23 10:34 EDT\.br\Electronically Co-Signed By: Sarah Beth Greene\.br\Date and Time Co-Signed: 08/15/23 10:32 EDTPT - Otheron 29-00-2872PM - OtherSpoke with pt by phone. Pt reports seeing his surgeon yesterday and having a 5 screw removed from his right hip while in the office. Pt states this had loosened at some point and this was the cause of his increased pain. Pt requests to return to PT on 08/09/23 and would like to keep activity light.[facility] HospitalPT - Otheron 87-84-9322ID - OtherPt called to inform PT that he is scheduled to see Dr Mckeon next Tuesday for a consult for his continued right hip pain.[facility] HospitalNonvisit Note - PTon 07-25-2023 Nonvisit Note - [...] and monitor if this helps his pain reports.[facility] HospitalGlucose Glucometer (BldC) [Mass/Vol]Ordered By: Marc Mckinney on 94-06-4144Bvebkze [Mass/Vol]115 mg/dLOhiohealth Van Wert HospitalComment on above:Random Glucose Reference Range is dependent on time and content of last meal. Glucose of more than 200 mg/dL in a nonstressed, ambulatory subject supports the diagnosis of Diabetes Mellitus.Basophils Auto (Bld) [#/Vol]Ordered By: Ashlyn Donato on 38-35-5250Gtjxirkne (Bld) [#/Vol]0.1 10*3/uL0.0-0.2 [facility] HospitalBasophils/100 WBC Auto (Bld)Ordered By: Ashlyn Donato on 97-75-0328Tdqdjzsnk/100 WBC (Bld)1.2 %.[facility] HospitalCalcium [Mass/volume] in Serum or PlasmaOrdered By: Ashlyn Donato on 70-31-6547Amltrqm [Mass/Vol]8.5 mg/dL8.6-10.3FMedina Hospital Carbon dioxide, total [Moles/volume] in Serum or PlasmaOrdered By: Ashlyn Donato on 95-70-0905UQ3 [Moles/Vol]23.3 mmol/L21.0-31.0[facility] HospitalChloride [Moles/volume] in Serum or PlasmaOrdered By: Ashlyn Donato on 21-99-7240Vceaiskv [Moles/Vol]105 mmol/V98-123UhpqwmeayOhiohealth Van Wert HospitalCreatinine [Mass/volume] in Serum or PlasmaOrdered By: Ashlyn Donato on 41-58-7462Pumtbfxcwb [Mass/Vol]0.71 mg/dL0.70-1.30[facility] HospitalEosinophils Auto (Bld) [#/Vol]Ordered By: Ashlyn Donato on 33-35-2793Tzqyahowmqf (Bld) [#/Vol]0.4 10*3/uL0.0-0.45[facility] HospitalEosinophils/100 WBC Auto (Bld)Ordered By: Ashlyn Donato on 00-09-4113Ztqojkdahqk/100 WBC (Bld)3.8 %.[facility] HospitalErythrocyte distribution width Auto (RBC) [Ratio]Ordered By: Ashlyn Donato on 70-45-0095Kyhslsehsye distribution width (RBC) [Ratio]14.0 % 12.0-14.8[facility] HospitalGlucose [Mass/volume] in Serum or PlasmaOrdered By: Ashlyn Donato on 93-75-2855Aenatkh [Mass/Vol]102 mg/dL 70-100[facility] HospitalComment on above:ADA recommended reference rangeRandom Glucose Reference Range is dependent on time and content of last meal. Glucose of more than 200 mg/dL in a nonstressed, ambulatory subject supports the diagnosisof Diabetes Mellitus.Hematocrit Auto (Bld) [Volume fraction]Ordered By: Ashlyn Donato on 94-01-8462Fgsbxbppuz (Bld) [Volume fraction]30.8 %38.8-50.0[facility] HospitalHemoglobin [Mass/volume] in BloodOrdered By: Ashlyn Donato on 26-24-4575Solqlueyra (Bld) [Mass/Vol]10.2 g/dL13.0-17.0[facility] HospitalLeukocytes [#/volume] corrected for nucleated erythrocytes in Blood by Automated coun Ordered By: Ashlyn Donato on 57-82-4635CPO corrected for nucl RBC Auto (Bld) [#/Vol]10.3 10*3/uL4.1-10.5FMedina HospitalLymphocytes Auto (Bld) [#/Vol]Ordered By: Ashlyn Donato on 07-62-3827Dzmwsuvpowa (Bld) [#/Vol] 1.0 10*3/uL1.00-4.8[facility] HospitalLymphocytes/100 WBC Auto (Bld)Ordered By: Ashlyn Donato on 64-94-0241Gpeofueyzya/100 WBC (Bld)9.9 %. [facility] CenterH Auto (RBC) [Entitic mass]Ordered By: Ashlyn Donato on 28-06-1978AZR (RBC) [Entitic mass]30.0 pg27.5-35.2FMedina HospitalMCHC Auto (RBC) [Mass/Vol]Ordered By: Ashlyn Donato on 81-14-5573VUGU (RBC) [Mass/Vol]33.2 g/dL32.5-35.6FMedina HospitalMCV Auto (RBC) [Entitic vol]Ordered By: Ashlyn Donato on 56-20-6745FFX (RBC) [Entitic vol]90.4 fL83.5-101[facility] HospitalMonocytes Auto (Bld) [#/Vol]Ordered By: Ashlyn Donato on 88-75-5527Yaiecdmuw (Bld) [#/Vol]1.1 10*3/uL0.0-0.8[facility] HospitalMonocytes/100 WBC Auto (Bld)Ordered By: Ashlyn Donato on 86-43-8317Kudzkvoup/100 WBC (Bld)10.6 %. [facility] HospitalNeutrophils Auto (Bld) [#/Vol]Ordered By: Ashlyn Donato on 69-09-1416Exvmtdnsdmu (Bld) [#/Vol]7.7 10*3/uL1.8-7.7FMedina HospitalNeutrophils/100 WBC Auto (Bld)Ordered By: Ashlyn Donato on 18-23-5563Hagguymnmvk/100 WBC (Bld)74.5 %.[facility] HospitalNo Panel InformationOrdered By: Ashlyn Donato on 01-29-2023 Estimated GFR (CKD-EPI)> 60.0 mL/MinOhiohealth Van Wert HospitalPharmacy Creatinine Clearance (Chem73.17[facility] HospitalNucleated erythrocytes [Presence] in Blood by Automated countOrdered By: Ashlyn Donato on 85-19-2064Atgmecuet RBC Auto Ql (Bld)0.1 /100{WBC}0-0.5FMedina HospitalPlatelet mean volume Auto (Bld) [Entitic vol]Ordered By: Ashlyn Donato on 70-46-9483Doslfhcm mean volume (Bld) [Entitic vol]9.0 fL6.6-10.1 [facility] HospitalPlatelets Auto (Bld) [#/Vol]Ordered By: Ashlyn Donato on 10-09-6579Conkiymei (Bld) [#/Vol]353 10*3/xI845-855IimakkblxOhiohealth Van Wert HospitalPotassium [Moles/volume] in Serum or PlasmaOrdered By: Ashlyn Donato on 55-54-4186Hotspnypn [Moles/Vol]4.2 mmol/L3.5-5.1FMedina HospitalRBC Auto (Bld) [#/Vol]Ordered By: Ashlyn Donato on 40-94-5725JKP (Bld) [#/Vol]3.41 10*6/uL3.90-5.60[facility] Medical Centererum or plasma anion gap determinationOrdered By: Ashlyn Donato on 66-59-2110Nhkja gap [Moles/Vol]13.9 mmol/L6.0-15.0[facility] Medical Centerodium [Moles/volume] in Serum or PlasmaOrdered By: Ashlyn Donato on 90-77-8041Ipcgph [Moles/Vol]138 mmol/U028-307UgbehzlzpOhiohealth Van Wert Hospital Urea nitrogen [Mass/volume] in Serum or PlasmaOrdered By: Ashlyn Donato on 96-61-1936Pnbk nitrogen [Mass/Vol]22 mg/dL7-25[facility] WBC Auto (Bld) [#/Vol]Ordered By: Ashlyn Donato on 18-99-1966DMQ (Bld) [#/Vol]10.3 10*3/uL4.1-10.5FMedina HospitalGlucose mean value [Mass/volume] in Blood Estimated from glycated hemoglobinOrdered By: Ashlyn Donato on 72-96-5014Afjxkow glucose Estimated from glycated hemoglobin (Bld) [Mass/Vol]134 mg/dLOhiohealth Van Wert HospitalHemoglobin A1c percentage Ordered By: Ashlyn Donato on 13-62-1488OoC6h (Bld) [Mass fraction]6.3 % 4.3-5.6FMedina HospitalComment on above:Increased risk for diabetes: 5.7 - 6.4diabetes: >6.4glycemic control for adults with diabetes: &l t;7.0Alanine aminotransferase [Enzymatic activity/volume] in Serum or Plasma Ordered By: Marc Mckinney on 34-25-3923WBY [Catalytic activity/Vol]4 U/L 7-52[facility] HospitalAlbumin [Mass/volume] in Serum or Plasma by Bromocresol green (BCG) dye binding methoOrdered By: Marc Mckinney on 88-11-0511Jgreeav BCG dye [Mass/Vol]3.0 g/dL3.5-5.7FMedina HospitalAlkaline phosphatase [Enzymatic activity/volume] in Serum or PlasmaOrdered By: Marc Mckinney on 49-75-1426WLS [Catalytic activity/Vol]64 U/L34-104 [facility] HospitalAspartate aminotransferase [Enzymatic activity/volume] in Serum or PlasmaOrdered By: Marc Mckinney on 68-47-0285PJL [Catalytic activity/Vol]12 U/F56-90KhhilmnhlOhiohealth Van Wert HospitalBilirubin.total [Mass/volume] in Serum or PlasmaOrdered By: Marc Mckinney on 12-44-5406Dphpewsno [Mass/Vol]0.8 mg/dL0.3-1.0[facility] HospitalGlobulin Calc (S) [Mass/Vol]Ordered By: Marc Mckinney on 32-14-5666Fdpxskmz (S) [Mass/Vol]2.9 g/dLOhiohealth Van Wert Hospital Prealbumin [Mass/volume] in Serum or PlasmaOrdered By: Marc Mckinney on 34-64-3858Toxgfcjxfc [Mass/Vol]8.4 mg/dL17.0-34.0[facility] HospitalProtein [Mass/volume] in Serum or PlasmaOrdered By: Marc Mckinney on 02-81-0362Irwlpmb [Mass/Vol]5.9 g/dL6.4-8.9[facility] Serum or plasma albumin/globulin mass ratioOrdered By: Marc Mckinney on 72-74-1311Vlquzyh/Globulin [Mass ratio]1.0 {ratio}[facility] HospitalTESTOSTERONE, TOTALon 14-64-6695Wsypimcuwovr [Mass/Vol]ng/dLCritically low 264-916The [facility] HospitalComment on above:Result Comment: Adult male reference interval is based on a population of healthy nonobese males (BMI <30) between 19 and 39 years old. Mars, et.al. JCEM 2017,102;2701-0077. PMID: [id number].Performed By: #### TESTTOT #### [facility] [address] [place] [address] Dr. Adrianna Champion REX DOP LEG RTon 63-37-8205NF REX DOP LEG RTEXAMINATION: US REX DOP LEG RT HISTORY: Pain of right lower leg COMPARISON: No relevant comparison available. FINDINGS: REGION: Right lower extremity THROMBI: None. COMPRESSIBILITY: Normal compressibility. FLOW: Normal waveform and antegrade flow between 5 and 20 cm/s. OTHER: Mild edema. IMPRESSION: 1. No deep vein thrombus within the right lower extremity. Electronically authenticated by: DANDY SANCHEZ Date: 2021-08-11 17:55NormalThe [facility] State East HospitalCB AUTO DIFFon 41-37-2494DJIS #0.0 103/ulNormal0.0-0.1The [facility] HospitalComment on above:Performed By: #### CBC #### [facility] [address] [place] [address] [address] Adrianna Gomezphils/100 WBC (Bld)0.5 %Normal0.2-2.0The [facility] Comment on above:Performed By: #### CBC #### [facility] [address] [place] [address] Dr. Adrianna Ferrari #0.5 103/ulNormal0.0-0.7The [facility] HospitalComment on above: Performed By: #### CBC #### [facility] [address] [place] [address] [address] Adrianna Escobarosinophils/100 WBC (Bld)6.2 %Normal0.9-7.0The [facility] Comment on above:Performed By: #### CBC #### [facility] [address] [place] [address] Dr. Adrianna Escobarrythrocyte distribution width (RBC) [Ratio]13.6 %Frhfsm45.0-15.0 The [facility] HospitalComment on above:Performed By: #### CBC #### [facility] [address] [place] [address] Dr. Adrianna LuevanoHematocrit (Bld) [Volume fraction]45.9 %Stzpxa18.0-54.0The [facility] HospitalComment on above:Performed By: #### CBC #### [facility] [address] [place] [address] Dr. Adrianna LuevanoHemoglobin (Bld) [Mass/Vol]15.2 g/tAPjaltr57.0-18.0The [facility] HospitalComment on above:Performed By: #### CBC #### [facility] [address] [place] [address] Dr. Adrianna Araujo #0.04 10e3/ulCritically high0.00-0.03The [facility] Comment on above:Performed By: #### CBC #### [facility] [address] [place] [address] Dr. Adrianna Araujo %0.5 %Normal0.0-0.5The [facility] HospitalComment on above: Performed By: #### CBC #### [facility] [address] [place] [address] Dr. Adrianna CastroH #1.2 103/ulNormal1.2-3.8The [facility] HospitalComment on above:Performed By: #### CBC #### [facility] [address] [place] [address] Dr. Adrianna Candelariamphocytes/100 WBC (Bld)13.7 %Critically low20.5-60.0The [facility] HospitalComment on above:Performed By: #### CBC #### [facility] [address] [address] [address] Adrianna Carrillo DIFF REQNONormalThe [facility] East HospitalComment on above: Performed By: #### CBC #### [facility] [address] [place] [address] Dr. Adrianna Maciel (RBC) [Entitic mass]29.9 eeYbxmrg39.9-34.0The [facility] HospitalComment on above:Performed By: #### CBC #### [facility] [address] [place] [address] Dr. Adrianna Maciel (RBC) [Mass/Vol]33.1 g/rIIkmmxu49.9-35.2The [facility] HospitalComment on above:Performed By: #### CBC #### [facility] [address] [place] [address] Dr. Adrianna Maciel (RBC) [Entitic vol]90.4 jWOphnqa58.0-94.0The [facility] HospitalComment on above:Performed By: #### CBC #### [facility] [address] [place] [address] Dr. Adrianna Sapp #1.1 103/ulCritically high0.3-0.8The [facility] Comment on above:Performed By: #### CBC #### [facility] [address] [place] [address] Dr. Adrianna Tapiaocytes/100 WBC (Bld)12.6 %Critically high1.7-12.0The [facility] HospitalComment on above:Performed By: #### CBC #### [facility] [address] [place] [address] Dr. Adrianna Solano #5.7 103/ulNormal1.4-6.5The [facility] HospitalComment on above:Performed By: #### CBC #### [facility] [address] [place] [address] Dr. Adrianna Mitchellutrophils/100 WBC (Bld)66.5 %Rfkklj63.0-75.0The [facility] HospitalComment on above:Performed By: #### CBC #### [facility] [address] [place] [address] Dr. Adrianna Aquinolet mean volume (Bld) [Entitic vol]11.3 fLNormal9.5-13.5The [facility] HospitalComment on above:Performed By: #### CBC #### [facility] [address] [place] [address] Dr. Adrianna LuevanoPLT183 103/raQrzwwm028-178Hwf [facility] HospitalComment on above: Performed By: #### CBC #### [facility] [address] [place] [address] Dr. Adrianna LuevanoRBC5.08 106/ulNormal4.70-6.10The [facility] HospitalComment on above:Performed By: #### CBC #### [facility] [address] [place] [address] Dr. Adrianna LuevanoWBC8.6 103/ulNormal4.0-11.0The [facility] HospitalComment on above: Performed By: #### CBC #### [facility] [address] [place] [address] Dr. Adrianna Montalvo CHEM 8 (BAS METB)on 31-89-4825Pbxch gap [Moles/Vol]13.4 mmol/LNormalThe [facility] HospitalComment on above:Performed By: #### BMP #### [facility] [address] [place] [address] Dr. Adrianna LuevanoCalcium [Mass/Vol]8.9 mg/dLNormal8.5-10.1The [facility] Comment on above:Performed By: #### BMP #### [facility] [address] [place] [address] Dr. Adrianna LuevanoChloride [Moles/Vol]106 mmol/MByhfks54-475Hlw [facility] Comment on above:Performed By: #### BMP #### [facility] [address] [place] [address] Dr. Yilan ChangCO2 [Moles/Vol]23.1 mmol/SGehknw86.0-32.0[facility] Comment on above:Performed By: #### BMP #### [facility] [address] [place] [address] Dr. Adrianna LuevanoCreatinine [Mass/Vol]0.87 mg/dLNormal0.70-1.30The [facility] HospitalComment on above:Performed By: #### BMP #### [facility] [address] [address] [address] Adrianna EscobarGFR-AF CAPE VERDEAN>60Normal>=60The [facility] HospitalComment on above:Performed By: #### BMP #### [facility] [address] [place] [address] Dr. Adrianna EscobarGFR-NON AF CAP[place] VERDEAN>60Normal>=60The [facility] HospitalComment on above:Performed By: #### BMP #### [facility] [address] [place] [address] Dr. Adrianna LuevanoGlucose [Mass/Vol]104 mg/uEQwqtpm17-258RwaParma [facility] Comment on above:Performed By: #### BMP #### [facility] [address] [place] [address] Dr. Adrianna LuevanoPotassium [Moles/Vol]4.5 mmol/LNormal3.5-5.1[facility] Comment on above:Performed By: #### BMP #### [facility] [address] [place] [address] Dr. Adrianna LuevanoSodium [Moles/Vol]138 mmol/UGxzemv339-143WgzParma Community [facility] Hospital Comment on above:Performed By: #### BMP #### [facility] [address] [place] [address] Dr. Adrianna LuevanoUrea nitrogen [Mass/Vol]22.0 mg/dLCritically high7.0-18.0The [facility] HospitalComment on above:Performed By: #### BMP #### [facility] [address] [place] [address] Dr. Adrianna LuevanoUrea nitrogen/Creatinine [Mass ratio]25.3 mg/mgNormalThe [facility] HospitalComment on above:Performed By: #### BMP #### [facility] [address] [address] [address] Adrianna LuevanoXR CHEST 2 Von 21-87-8623GE CHEST 2 VEXAMINATION: XR CHEST 2 V [...] Electronically authenticated by: DANDY SANCHEZ Date: 2021-05-20 15:58[facility] Vital Signs Date TimeVital SignValuePerforming MdvvgyrowDhfqakab01-48-9111 16:02-0400 Diastolic blood hnfrdauw43 mm[Hg]Todd Caballero MD Work Phone: [facility]04-02-2025 16:02-0400Systolic blood bfcmcpop843 mm[Hg]Todd Caballero MD Work Phone: [facility]02-25-2025 07:24-0500Body .1 cmBenjamin Ball DO Work Phone: [facility]02-25-2025 07:24-0500 Body ursqym77.64 kgBenjamin Ball DO Work Phone: [facility]02-21-2025 14:33-0500 Body szyffjkztqs25.81 [degF]Donna Singh MD Work Phone: [facility]02-21-2025 14:33-0500Diastolic blood ccucsrsm49 mm[Hg]Donna Singh MD Work Phone: [facility]02-21-2025 14:33-0500Heart rate83 /min Donna Singh MD Work Phone: [facility]02-21-2025 14:33-8995UsM2% (BldA) [Mass fraction]97 %Donna Singh MD Work Phone: [facility]02-21-2025 14:33-0500Systolic blood lxpfbqym513 mm[Hg]Donna Singh MD Work Phone: [facility]01-24-2025 09:30-0500Diastolic blood seqktopf66 mm[Hg]Alpesh Ball DO Work Phone: 1(445)137-[address] [place], [place] 5605501-24-2025 09:30-0500 Heart rate74 /minBenjamin Ball DO Work Phone: [phone])[address]01-24-2025 09:30-0500 Respiratory rate16 /minBenjamin Ball DO Work Phone: 1(938)[address] [place], [place] 6706601-24-2025 09:30-0500 SaO2% (BldA) [Mass fraction]98 %Alpesh Ball DO Work Phone: 1(895)[facility] [place], [place] 5605501-24-2025 09:30-0500 Systolic blood nbvdojdn621 mm[Hg]Alpesh Ball DO Work Phone: 1(284)[address] [place], [place] 6706601-24-2025 07:35-0500 Body ustqcf500.18 cmBenjamin Ball DO Work Phone: 1(650)[address] [place], [place] 6706601-24-2025 07:35-0500 Body axsixv02.73 kgBenjamin Ball DO Work Phone: 1(776)060-[address] [place], [place] 5605512-20-2024 13:36-0500 Diastolic blood nqeendtg41 mm[Hg]Alpesh Ball DO Work Phone: 1(034)376-[address] [place], [place] 5605512-20-2024 13:36-0500 Heart rate80 /minBenjamin Ball DO Work Phone: 1(797)344-[address] [place], [place] 5605512-20-2024 13:36-0500 Respiratory rate16 /minBenjamin Ball DO Work Phone: 1(571)090-[address] [place], [place] 5605512-20-2024 13:36-0500 SaO2% (BldA) [Mass fraction]95 %Alpesh Ball DO Work Phone: 1(079)651-[address] [place], [place] 5605512-20-2024 13:36-0500 Systolic blood vwhssdpe309 mm[Hg]Alpesh Ball DO Work Phone: 1(410)873-[address] [place], [place] 5605512-20-2024 11:20-0500 Body wstaiw165.72 cmBenjamin Ball DO Work Phone: 1(169)[facility] [place], [place] 5605512-20-2024 11:20-0500 Body aodndi02.64 kgBenjamin Ball DO Work Phone: 1(614)[address] [place], [place] 6706611-11-2024 11:30-0500 Body .18 cmBenjamin Ball DO Work Phone: 1(525)[address] [place], [place] 6706611-11-2024 11:30-0500 Body mass index (BMI) [Ratio]28.1 kg/c8Pdxdmzht Ball DO Work Phone: 1(839)[address] [place], [place] 6706611-11-2024 11:30-0500 Body narcbv84.64 kgBenjamin Ball DO Work Phone: 1(570)[address] [place], [place] 6706611-11-2024 11:30-0500 Diastolic blood uievalej14 mm[Hg]Alpesh Ball DO Work Phone: 1(236)[address] [place], [place] 6706611-11-2024 11:30-0500 Heart rate83 /minBenjamin Ball DO Work Phone: 1(732)[facility] [place], [place] 5605511-11-2024 11:30-0500 Respiratory rate12 /minBenjamin Ball DO Work Phone: 1(000)[facility] [place], [place] 5605511-11-2024 11:30-0500 Systolic blood nbysrrju556 mm[Hg]Alpesh Ball DO Work Phone: 1(880)[address] [place], [place] 670[address]01-03-2024 11:30-0500 Body .18 cmBenjamin Ball Other [place] [employer] Other 01-03-2024 11:30-0500Body mass index (BMI) [Ratio] 30.48 kg/g8Ddnoxgkp Ball Other [place] [employer] Other 01-03-2024 11:30-0500Body batcsw16.27 kgBenjamin Ball Other [place] [employer] Other 01-03-2024 11:30-0500Diastolic blood eprhindy52 mm[Hg] Alpesh Ball Other [place] [employer] Other 01-03-2024 11:30-0500Respiratory rate16 /minBenjamin Ball Other [place] [employer] Other 01-03-2024 11:30-0500Systolic blood ilefghov293 mm[Hg] Alpesh Ball Other [facility] [employer] Other 640604-97-1624 08:31-0500Body cfelwnjsbue11.8 [degF]DO Alpesh Ball Work Phone: [phone]12-27-2023 08:31-0500 Diastolic blood fqklhdyf21 mm[Hg]DO Alpesh Ball Work Phone: [facility]12-27-2023 08:31-0500 Heart rate81 /minDO Alpesh Ball Work Phone: [phone]12-27-2023 08:31-0500 Respiratory rate17 /minDO Alpesh Ball Work Phone: [phone]12-27-2023 08:31-0500 SaO2% (BldA) [Mass fraction]96 %DO Alpesh Ball Work Phone: [phone])682-79[facility]12-27-2023 08:31-0500 Systolic blood hhgrbygz717 mm[Hg]DO Alpesh Ball Work Phone: 1(713)517-23[facility]12-27-2023 06:54-0500 Body pijece026.18 cmDO Alpesh Ball Work Phone: [facility]12-24-2023 05:44-0500 Body jmvidx64.5 kgDO Alpesh Ball Work Phone: [phone]12-14-2023 16:00-0500 Inhaled oxygen flow rate2 L/minDO Alpesh Ball Work Phone: [phone]11-17-2023 09:00-0500 Body coulqo469.18 cmBenjamin Ball Other [place] [employer] Other 11-17-2023 09:00-0500Body mass index (BMI) [Ratio] 31.13 kg/s9Pfwnlcdu Ball Other [place] [employer] Other 11-17-2023 09:00-0500Body sjmgox55.18 kgBenjamin Ball Other [place] [employer] Other 11-17-2023 09:00-0500Diastolic blood hsmsrzle81 mm[Hg] Alpesh Ball Other [place] [employer] Other 11-17-2023 09:00-0500Respiratory rate16 /minBenjamin Ball Other [place] [employer] Other 11-17-2023 09:00-0500Systolic blood oddguuhs714 mm[Hg] Alpesh Ball Other [place] [employer] Other 10-18-2023 14:30-0400Body ughuoq612.18 cmBenjamin Ball Other [place] [employer] Other 10-18-2023 14:30-0400Body mass index (BMI) [Ratio] 31.04 kg/f3Ggawrjyo Ball Other [employer] Other 10-18-2023 14:30-0400Body weytnt98.9 kgBenjamin Ball Other [employer] Other 10-18-2023 14:30-0400Diastolic blood rieoqcsl39 mm[Hg] Alpesh Ball Other [employer] Other 10-18-2023 14:30-0400Respiratory rate16 /minBenjamin Ball Other [employer] Other 10-18-2023 14:30-3909QqN9% (BldA) [Mass fraction]97 % Alpesh Ball Other [employer] Other 10-18-2023 14:30-0400Systolic blood dezcubyj445 mm[Hg] Alpesh Ball Other [employer] Other 05-17-2023 14:30-0400Body kfipwy233.18 cmBenjamin Ball Other [employer] Other 05-17-2023 14:30-0400Body mass index (BMI) [Ratio] 32.14 kg/r0Agejesmb Ball Other [employer] Other 05-17-2023 14:30-0400Body .08 kgBenjamin Ball Other [employer] Other 05-17-2023 14:30-0400Diastolic blood yefkymoa91 mm[Hg] Alpesh Ball Other [employer] Other 05-17-2023 14:30-0400Respiratory rate16 /minBenjamin Ball Other [place] Other 05-17-2023 14:30-0400Systolic blood dsdexfhu985 mm[Hg] Alpesh Dunn Other [facility] Other Encounters Encounter DateEncounter TypeCare ProviderFacilityStart: 25-21-5367wapylfuwsd Luis GARCIAFacility:EU [place]Start: 07-20-2024 End: 69-91-8927utingobpxyTohwymj R WATERSFacility:[facility] HospitalueStart: 05-09-2024 End: 41-77-2013taozfkdcjcRKTRY ROSENFacility:[facility]tart: 05-09-2024 End: 76-23-9962Nqqfbdn encounter procedureTodd Caballero MD Work Phone: UrologyComment on above:Prostate cancer (HCC) (Primary Dx); Rectourethral fistula; Adverse effect of radiation, sequelaStart: 04-03-2024 End: 06-95-7407Nnrhtnr encounter procedureBejessarturo Dunn DO Work Phone: [facility] Work Phone: Start: 04-03-2024 End: 83-50-7663vfwfubcnjfPsvdsoym Ball DO Work Phone: [facility] Work Phone: Start: 03-30-2024 End: 76-15-4515uqrtekzjsbFJAXU ROSENFacility:[facility]art: 03-30-2024 End: 39-24-1985Xoreefq encounter procedureDonna Singh MD Work Phone: Colorectal SurgeryComment on above:Rectal lesion (Primary Dx); Rectourethral fistula; Anorectal ulcerStart: 03-22-2024 End: 69-93-9842Zmowlmmof encounterDanila Singh MD Work Phone: Colorectal SurgeryStart: 03-09-2024 End: 38-68-6823Yhhyelamm encounterDonna Singh MD Work Phone: Colorectal SurgeryStart: 03-08-2024 End: 23-43-9228Hicddddec encounterDonna Singh MD Work Phone: Colorectal SurgeryComment on above:AppointmentStart: 03-06-2024 End: 04-18-5129Alsynuukk encounterDonna Singh MD Work Phone: Colorectal SurgeryComment on above:AppointmentStart: 03-06-2024 End: 02-93-8832yyecmihgumJuzktld R WATERSFacility:EU [place]Start: 03-02-2024 Non-patient / Non-visitBenjamin Ball DO Work Phone: [facility] Work Phone: Start: 03-02-2024 End: 23-53-0017Zwqsowfen to same day surgery centerBenjamin Ball DO Work Phone: [facility] Work Phone: Start: 03-02-2024 End: 18-23-1386mnhcorwuceXgoxcnzx Ball DO Work Phone: [facility] Work Phone: Start: 01-30-2024 End: 19-71-5387czfmutzsirTxovaed R WATERSFacility:EU [place]vueStart: 01-27-2024 Non-patient / Non-visitBenjamin Ball DO Work Phone: [facility] Work Phone: Start: 01-27-2024 End: 50-52-2419Bkypugpqo to same day surgery centerBenjamin Ball DO Work Phone: [facility] Work Phone: Start: 01-27-2024 End: 45-79-1430zjqtnhoymsSbdx AsaadFacility:[facility] Start: 75-10-5231Uny-patient / Non-visitBewilfredo Dunn DO Work Phone: [facility] [employer] Work Phone: Start: 12-19-2023 End: 38-94-0840Mrqfqxz encounter procedureBewilfredo Dunn DO Work Phone: [facility] Work Phone: Start: 60-11-1485Huz-patient / Non-visitBenarturo Dunn DO Work Phone: [facility] [employer] Work Phone: Start: 08-15-2023 End: 76-20-7572ocuicpptbpQbshzrv R WATERSFacility:CATHIE BellevueStart: 08-02-2023 End: 41-55-1158lrbvoymvxyDQZB A TriHealthtart: 06-27-2023 End: 05-42-3175hbnydpwfaqTvtgljbx Ball Other [employer] Other Start: 23-67-8591Cqwseurxg encounterBewilfredo Dunn [facility] ClinicStart: 05-19-2023 End: 35-92-5419rubuybeglqVXQB A TriHealthtart: 03-08-2023 End: 04-24-6609xqmhjowfqcAJWM A TriHealthtart: 02-09-2023 End: 55-02-3655rveaklhsahVuuubzrh Ball Other [employer] Other Start: 31-79-2338Gphufzcfvwlj care manage srvc 14 day dischargeBewilfredo Dunn Medical ClinicStart: 02-03-2023 End: 31-10-2601oayztcfwnxUgxwbzfc Ball Other [employer] Other Start: 48-67-1396Adwqdyjem encounterBenjamin BallFPG [facility] Medical ClinicStart: 01-20-2023 End: 83-08-3501muemyyxhbhGcvsqaii Ball Other [facility] Other Start: 05-62-8416Ubrnyiuod encounterBenjamin BallFPG [facility] ClinicStart: 01-19-2023 End: 79-87-4398Lofomlxekg and management of inpatientDO Alpesh Ball Work Phone: [facility] Work Phone: Start: 12-24-2022 End: 14-73-4826cqhucpspjxXznqmqew Ball Other [facility] Other Start: 07-06-5112Sxqinm outpatient visit 25 minutes Alpesh BallFPG [facility] Medical ClinicStart: 12-22-2022 End: 46-08-6636tstapawjtoWpnhtzbl Ball Other [place] [employer] Other Start: 63-95-1936Xdrjktrst encounterBenjamin BallFPG [facility] ClinicStart: 11-24-2022 End: 12-83-5565qqlijdkmnbWxgxwjzs Ball Other [facility] Other Start: 59-90-3321Ollggi outpatient visit 25 minutes Alpesh BallFPG [facility] ClinicStart: 01-10-6483Mofoedsnm encounterBenjamin BallFP[facility] ClinicStart: 07-22-2022 End: 69-89-1816cadylsceduJuqqtyef Ball Other [facility] Other Start: 37-60-1680Isuxygbsg encounterBenjamin BallFP[facility] ClinicStart: 06-23-2022 End: 71-75-9771wzgbusldqkCjressxa Ball Other [facility] Other Start: 09-50-0885Ompmich encounter procedureBenjamin BallFPG [facility] Medical ClinicStart: 01-20-2022 End: 02-31-0374fauqvkwwgvQF LUIS WATERSFacility:L5Cicpx: 08-11-2021 End: 03-18-9245vjddiffrgbTF ALPESH BALLFacility:Q9Bxveh: 07-22-2021 End: 22-40-2412dkydayszlpZA ULIS WATERSFacility:A8Qkioo: 05-20-2021 End: 28-64-2314sywvdgoosrYI ALPESH DUNNFacility:H1 Procedures DateProcedureProcedure DetailPerforming ClinicianStart: 07-64-8379QGN of pelvis with contrastBenjamin Ball DO Work Phone: Start: 86-77-1052Tqkcwwnm fiberoptic sigmoidoscopy Alpesh Ball DO Work Phone: Start: 99-30-3870Pehsyjik tomography of abdomen and pelvis with contrastBenjamin Ball DO Work Phone: Start: 83-02-1196OG of thorax with contrastBenjamin Ball DO Work Phone: Start: 54-88-7185NarqfhekklzftkdqymnykdbgubPmmvpnqq Ball DO Work Phone: Start: 12-07-2023E coli Shiga Toxin EIABenjamin Ball DO Work Phone: Start: 65-75-7152Nzblckihla/Shigella ScreenBenjamin Ball DO Work Phone: Start: 34-61-9888NZ of head without contrastDO Alpesh Ball Work Phone: Start: 45-04-6348Qhegu X-ray of right ribDO Alpesh Ball Work Phone: Start: 20-45-3261DDX screeningDR ALPESH BALLComment on above:Performed By: #### PSAD #### [facility] [address] [address] [address] Adrianna LuevanoStart: 40-97-4951UIS screeningDR ALPESH BALLComment on above: Performed By: #### PSAD #### [facility] [address] [address] [address] Adrianna Luevano Plan of Treatment DateCare ActivityDetailAuthorStart: 51-53-5822Hzojo microalbumin profile DTaP,Tdap,Td Vaccine (3 - Td or Tdap)[facility]: 26-17-5555Ufzzldwt ScreeningDiabetes ScreeningMercy Health Kings Mills Hospitaltart: 03-30-2024 End: 83-24-7752Xmdomdd encounter eejfyctmg64/21/2025 2:40 PM EST Office Visit Colorectal Surgery [address] [place] [address] Donna Singh MD [address] [place] [address] New Pt: Ulcer of Anus and rectum,Ref By: Dr. Shi Colorectal SurgeryComment on above:New Pt: Ulcer of Anus and rectum,Ref By: Dr. Wildetart: 98-88-5653BamidcwntLakeHealth TriPoint Medical Centertart: 43-80-4842Oljqoim Directive DiscussionAdvance Directive DiscussionMercy Health Kings Mills Hospitaltart: 26-92-7714PlgchxiwtLakeHealth TriPoint Medical Centertart: 69-92-2825Bkdwy-19 Vaccine ( season)Covid-19 Vaccine ( season)[facility] Hospitaltart: 26-63-5459Nvuuv-19 Vaccine ( season)Covid-19 Vaccine ( season)[facility]tart: 49-59-7967Sbyefvqfx vaccinationInfluenza Vaccine (#1)[facility] Hospitaltart: 11-59-1228JgbdxyiehLakeHealth TriPoint Medical Centertart: 74-37-9390Kjslyxipevfbul of prophylactic treatmentLakeHealth TriPoint Medical Centertart: 07-94-9120Rojkiuce admissionLakeHealth TriPoint Medical Centertart: 44-64-1227Ixmvbajl to clinical allergistLakeHealth TriPoint Medical Centertart: 60-79-9750VEM Vaccine (1 - 1-dose 75+ series)RSV Vaccine (1 - 1-dose 75+ series)[facility] Hospitaltart: 78-32-8331Nehtddywlnwz Vaccine: 50+ (1 of 1 - PCV) Pneumococcal Vaccine: 50+ (1 of 1 - PCV)[facility] Hospitaltart: 1988 Shingrix Vaccine (1 of 2)Shingrix Vaccine (1 of 2)[facility] Hospitaltart: 76-75-2143Qlpuygkh ScreeningDiabetes ScreeningMercy Health Kings Mills Hospitaltart: 1959 Urine microalbumin profileDTaP,Tdap,Td Vaccine (1 - Tdap)[facility] Hospitaltart: 41-41-0049Yjovsep ScreeningAnxiety ScreeningCleMercy Health West Hospitaltart: 1958 Depression ScreeningDepression ScreeningSamaritan Hospital Abdomen and Pelvis W contrast [facility] CenterPatient EducationK[facility]tering [facility] Work Phone: Patient referralKettering Memorial Hospital Ctr Work Phone: [facility] Immunizations Immunization DateImmunizationNotesCare LskzidphWunrrsel01-35-1366miaubowoh virus vaccine, unspecified formulationDonna Singh MD Work Phone: [facility] HospitalBgbnts98-39-4091xsjjjwodp, high dose seasonal, preservative-freeBenjamin Ball Other [place] [employer] Other 900334-71-1147eyganjaii virus vaccine, unspecified formulationBenjamin Ball DO Work Phone: [facility]02-18-2021COVID-19 Vaccine Pfizer - Documentation Purposes OnlyBenjamin Ball Other [facility]01-26-2021COVID-19 Vaccine Pfizer - Documentation Purposes OnlyBenjamin Ball Other [facility]09-15-2020 pneumococcal polysaccharide vaccine, 23 valentBenjamin Ball Other [facility]11-03-2017influenza virus vaccine, split virus (incl. purified surface antigen)Alpesh Dunn Other [facility] Other 671008-32-6768ogoiadkzl virus vaccine, unspecified formulationBenjamin Ball DO Work Phone: [facility]10-26-2016influenza virus vaccine, split virus (incl. purified surface antigen)Alpesh Dunn Other [facility] Other 039496-82-7401igeeivkro virus vaccine, unspecified formulationBenjamin Ball DO Work Phone: [facility]10-24-2016 pneumococcal conjugate vaccine, 13 valentBenjamin Ball Other [facility]05-20-2010 pneumococcal polysaccharide vaccine, 23 valentBenjamin Ball Other [facility] Payers DatePayer CategoryPayerPolicy [id number]-[id number] Health Insurance [id number] 2004Medicare [id number] [id number] 2004 [id number] [id number] [id number] [id number] 2.840.1.819389.3.57[id number] 2.16840.1.984191.3.57[id number] 2.16840.1.620875.3.57[id number] 2.840.1.665787.3.57[id number] 2.16840.1.067723.3.57[id number] 2.0.1.538220.3.57[id number] 2.0.1.987769.3.57[id number] 2.0.1.551272.3.57[id number] 2.0.1.080709.3.57[id number] 2.840.1.985945.3.57[id number] 2.0.1.104410.3.57[id number] 2.840.1.5[id number] 2.0.1.062602.19UnknownANYU Langone Health [id number]-5mhz-[id number] 2.16840.1.5[id number] 2.840.1.890260.3.579.2.531 [id number] 2.16.840.1.178799.3.579.2.531 Social History DateTypeDetailFacilityStart: 08-17-2017 End: 14-47-8680Qym Assigned At [facility] [place] Other Start: 01-20-2023 End: 39-71-0316Lhxjler smoking status NHISNever smoked tobacco (finding) [facility]: 14-33-5449Ith Assigned At [facility] Avontart: 97-93-3574Reqhcym smoking status NHISEx- smoker (finding)[facility]: 03-02-2024 End: 08-13-9168ErcCzid (finding)[facility]: 02-02-2017 End: 24-70-1308Iepxrez use and exposureFormer smokeless tobacco userMercy Health Kings Mills Hospitaltart: 08-17-2017 End: 40-67-4983Uskbzef of Social functionOhiohealth Grove City Methodist HospitalNational Score (1-100), lower number is lower riskNot on [facility] Hospitaltart: 56-44-2303Ndq assigned at scionhealthNot on [facility] Goals DatePatient GoalDesired Activity/State Functional Status RdebXxrjhpwocoEbvfnvLneqdpus02-41-2458Hnmazxkxdv statusPatient is Progressing Toward BaselineParkview Health [facility]pel[facility] Hospital Work Phone: Mental Status KimlKnblsuwwozCrupkdDwkftvtj09-62-5751Ghtkropkm functionCognitive Status [facility] at [facility] Work Phone: Clinical Notes 06-23-2022 to 07-20-2024 Note Date & IiapJfoaQccthhbt88-38-6422 NotePatient Education Oncology Prostate Cancer The prostate [...] to normal prostate cells (moderately differentiated). ??? [place] 8, 9, or 10: This indicates that [...] needles, seeds, wires, o (more content not included)...[facility]04-02-2025 NoteHNO ID: [id number] Author: TODD CABALLERO MD Service: ? Author Type: Physician Type: Progress Notes Filed: 05/09/2024 21:00 Note Text: [facility] UROLOGY NEW PATIENT CLINIC NOTE SERVICE DATE: 05/09/2024 NAME: Park Guidry REFERRED BY: Donna Singh [address] [place] [id number] Consultation requested by Dr. Singh for an [...] outlet obstruction Todd Caballero MD Associate Staff [facility] [place] Department of UrologyBerkshire Medical CenterOrgdeoir21-13-8603 History of Present illness Narrative* Todd Caballero MD - 05/09/2024 4:15 PM EDT Images from the original note were not included. [facility] UROLOG[facility] NEW PATIENT CLINIC NOTE SERVICE DATE: 05/09/2024 NAME: Park Guidry REFERRED BY: Donna Singh [id number] [place] [facility] [address] [address] Singh for an [...] outlet obstruction Todd Caballero MD Associate Staff [facility] [place] Department of Urology * Nikki Wallace RN - 05/09/2024 4:05 PM EDT Post void residual done on patient with 0 cc residual volume remaining. notified. Nikki Wallace RN documented in this encounterOhiohealth Grove City Methodist Hospital04-02-2025 NoteHNO ID: [id number] Author: NIKKI WALLACE RN Service: ? Author Type: Registered Nurse Type: Progress Notes Filed: 05/09/2024 21:00 Note Text: Post void residual done on patient with 0 cc residual volume remaining. notified. Nikki Wallace [facility]02-21-2025 History of Present illness Narrative* Donna Singh MD - 03/30/2024 2:40 PM EST COLORECTAL SURGERY March 30, 2024 Park Guidry 83 year old This consult was requested by Dr. Lars Shi and my final recommendations will be communicated to the requesting health care provider by way of the shared medical record for internal providers or letter via the [employer] for external providers. Chief Complaint: ulcer of anus and rectum History of Present Illness: Park Guidry is a 83 year old male presents today for evaluation of rectal ulcer. MRI scheduled for 04/03/24 at [facility] CT CAP 01/27/24 - [facility] Scan on 03/05/2024 3:53 PM by Celia Garcia: [facility] Chest,Abdomen and Pelvis 01/27/24 Impression: Circumferential irregular wall thickening of the distal sigmoid colon and rectum likely corresponding with patient's history of rectal ulceration and suspicion for malignancy. No adjacent enlarged lymph nodes. No distal metastatic disease of the chest abdomen or pelvis Sigmoidoscopy 03/02/24 - Dr. Avelar Scan on 03/05/2024 3:50 PM by Celia Garcia: [facility] S[facility] 03/02/24 Rectum: Excavated ulcerated lesion in the rectum (4 cm), biopsied using jumbo biopsy Pathology 03/02/24 Scan on 03/22/2024 4:01 PM by Celia Garcia: [facility]- Pathology Report 03/02/24 - Ulcer with reactive stromal atypia, negative for carcinoma Colonoscopy 01/27/24 - Dr. Avelar Scan on 03/05/2024 3:51 PM by Celia Garcia: [facility]- EGD & Colonoscopy Report 01/27/24 Ascending colon: [...] exam reveals anterior divot consistent with ulcer Fur Puller present: Yes, Ximena Sheets Anoscopy could not be performed due to patient discomfort The sensitive examination was discussed with the Patient or Patient's Authorized Caregivers Homecare. Asapplicable, any other physician, advance practice provider, medical student, or other health professional student that will be observing or involved in the sensitive examination for educational or training purposes was discussed with the Patient or Authorized Caregivers Homecare. The Patient or Authorized Caregivers Homecare has agreed to proceed with the sensitive [...] Singh MD Colorectal Surgery documented in this encounterOhiohealth Grove City Methodist Hospital02-21-2025 NoteHNO ID: [id number] Author: DONNA SINGH MD Service: ? Author Type: Physician Type: Progress Notes Filed: 03/30/2024 15:51 Note Text: COLORECTAL SURGERY March 30, 2024 Park Guidry 83 year old This consult was requested by Dr. Lars Shi and my final recommendations will be communicated to the requesting health care provider by way of the shared medical record for internal providers or letter via the [employer] for external providers. Chief Complaint: ulcer of anus and rectum History of Present Illness: Park Guidry is a 83 year old male presents today for evaluation of rectal ulcer. MRI scheduled for 04/03/24 at [facility] CT CAP 01/27/24 - [facility] Scan on 03/05/2024 3:53 PM by Celia Garcia[facility] Chest,Abdomen and Pelvis 01/27/24 Impression: Circumferential irregular wall thickening of the distal sigmoid colon and rectum likely corresponding with patient's history of rectal ulceration and suspicion for malignancy. No adjacent enlarged lymph nodes. No distal metastatic disease of the chest abdomen or pelvis Sigmoidoscopy 03/02/24 - Dr. Avelar Scan on 03/05/2024 3:50 PM by eClia Garcia: [facility] S[facility] 03/02/24 Rectum: Excavated ulcerated lesion in the rectum (4 cm), biopsied using jumbo biopsy Pathology 03/02/24 Scan on 03/22/2024 4:01 PM by Celia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
[2025-01-09 15:13] LABS: Prostate Specific Antigen Dx <0.13 ng/mL (<=4.00)
== END 2025-01-09 13:41 | disposition home or self-care (01) ==
LOC: LAB 13:42
PROVIDERS: PCP Internal Medicine; Visit Provider Urology
DX: R97.21 Rising PSA following treatment for malignant neoplasm of prostate (principal)
CPT/HCPCS: 36415; 84153

== ENCOUNTER 2025-01-29 13:06 | Outpatient (OUT) | payer MEDICARE, SELFPAY ==
--- OUTSIDE RECORDS SUMMARY | 2025-01-29 13:08 | XMS_ITS | Clinical Summary ---
Author Organization [facility] Address [address], [address] [place] [address] Care Team Providers Care Family Engagement Specialist Name Role Phone Unavailable Primary Care Provider [...] tablet 01/17/2023ctive vitamin D (ERGOCALCIFEROL) 1.25 MG (31393 UT) CAPS capsule Take 1 capsule by mouth once a week 8 capsule ctive enoxaparin Sodium (LOVENOX) 30 MG/0.3ML injection Inject 0.3 mLs into the skin 2 times daily01/19/2023ctive ibuprofen (ADVIL;MOTRIN) 400 MG tablet Take 1 tablet by mouth every 6 hours as needed for Pain01/19/2023ctive vitamin D (ERGOCALCIFEROL) 1.25 MG (82715 UT) CAPS capsule Take 1 capsule by mouth once a week for 8 doses 8 capsule 05/19/2023ctive diclofenac sodium (VOLTAREN) 1 % GEL Apply 4 g topically 4 times daily 150 g ctive Active Problems ProblemNoted DateDiagnosed DateClosed displaced transverse fracture of shaft of femur, initial jwelqbmjv77/10/2023losed fracture of right femur12/11/2022 Social History Tobacco UseTypesPacks/DayYears UsedDateSmoking Tobacco: NeverSmokeless Tobacco: NeverAlcohol UseStandard Drinks/WeekCommentsNever0 (1 standard drink = 0.6 oz pure alcohol)Interpersonal Safety Domain Source: IP Abuse ScreeningAnswerDate RecordedRead-Only, Retired: Physical LykwcAcbsss22/10/2023Read-Only, Retired: Verbal QmjdaGdqpyt70/10/2023Read-Only, Retired: Emotional exujhHoxqws23/10/2023 Read-Only, Retired: Financial RhbphDkznlg32/10/2023Read-Only, Retired: Sexual cmttbCeedci19/10/2023Sex and Gender InformationValueDate RecordedSex Assigned at BirthNot on fileLegal YcaTgpc10/10/2023 11:29 AM ESTGender IdentityNot on file Sexual OrientationNot on file Last Filed Vital Signs Vital SignReadingTime TakenCommentsBlood Msuaxmnt318/7701/19/2023 7:37 AM EST Bjrzs790001/19/2023 7:37 AM BICBypelincice51.4 ??C (97.5 ??F)01/19/2023 7:37 AM ESTRespiratory Kpyk463103/22/2022 6:28 AM ESTOxygen Ksewmbddqx30%01/19/2023 7:37 AM ESTInhaled Oxygen Concentration--Cbwaob75.7 kg (189 lb)08/18/2023 11:12 AM JMEFfwkly780.2 cm (5' 7 )08/18/2023 11:12 AM EDTBody Mass Index29.607 11:12 AM EDT Plan of Treatment Health MaintenanceDue DateLast DoneCommentsDepression Gabbzg001Prostate Specific Antigen (PSA) Screening or Cmlfghcxaz27/21/1979Shingles vaccine (1 of 2)1988Respiratory Syncytial Virus (RSV) or age 60 yrs+ (1 - 1- dose 75+ series)2013COVID-19 Vaccine (3 - Pfizer risk series)04/24/2020 03/27/2020, 1Annual Wellness Visit (Medicare)01/16/2023Flu vaccine (#1) 512/09/2022, 11/25/2021, 12/10/2016, Additional history exists DTaP/Tdap/Td vaccine (3 - Td or Tdap)311/11/2022, 12/23/2020 Pneumococcal 50+ years LmtmdhlMaaipglak54/15/2020, 12/01/2015, 02/07/2015, Additional history existsHepatitis A vaccineAged [...] DateModel / Serial / LotNail Im L400mm Gsu00ln R Fem Gtr Troch Entry Lt Grn Ti Ally - [id number] Implanted:Qty: 1 on [facility]17/20[facility] FemurDEPUY SYNTHES [facility]-[id number] / / [id number] Bne Hip 6.5x105 Mm Recon Xl40 Recess Im Nail Ti Strl - [id number] Implanted:Qty: 1 on 01/17/2023 [facility]: FemurDEPUY [employer] [id number] / / [id number] Bne Hip 6.5x115 Mm Recon Thrd Xl40 Strl Frnadvanced - [id number] Implanted:Qty: 1 on 01/17/2023 by Barron Hilliard DO at [facility]: FemurDEPUY [employer] [id number] / / [id number] Lck F/Im Nail 5x48mm Xl25 Str - [id number] Implanted:Qty: 1 on 01/17/2023 by [facility]: FemurDEPUY SYNTHES [facility]-[id number] / / [id number] Lck F/Im Nail 5x70mm Xl25 Str - [id number] Implanted:Qty: 1 on 01/17/2023 [facility]: FemurDEPUY SYNTHES [facility]-[id number] / / [id number] Lk F/Im Nail 5x54mm Xl25 St - [id number] Implanted:Qty: 1 on 01/17/2023 [facility] FemurDEPUY SYNTHES [facility]-[id number] / / [id number] Insurance * Guarantor: Horace Scanlon TypeRelation to PatientDate of BirthPhone Billing AddressPersonal/TclzqbPzhl25/ [address] [place] [address] Advance Directives * Full Code (Latest Code Status on File) Date ActivatedDate GfshwbdougeTatcjlax68/10/2023 4:27 PM01/19/2023 6:10 PM NameRelationshipHealthcare Agent RelationshipCommunicationJudy GravenhorstChild Primary Decision Maker* [phone] ([employer])
--- OUTSIDE RECORDS SUMMARY | 2025-01-29 13:08 | XMS_ITS ---
Author Organization [facility] Address [address] [place], [place] [address] Care Team Providers Care Manager Communication Name Role Phone Alpesh Hampton DO Primary Care Provider [phone] Active Problems ProblemNoted DateDiagnosed DateHistory of prostate btykbc0708/17/2017Prostate nowbnt7009/29/2016 Current Treatment and Therapy Plans No current plan information found. Past Treatment and Therapy Plans No past plan information found. Treatment Summaries Prostate cancer (HCC)* Treatment Summary and Survivorship Care Plan for Prostate Cancer Provided by: Funmi Santos APRN.CNP General Information Patient Name: David Scanlon Patient : 1940 Patient phone: Email: [email or web address] [facility] Providers Primary Care Provider: Dr. Alpesh Hamptno Urologic Surgeon: Dr. Jaguar Batres Radiation Oncologist: Dr. Alvarado Smith Other Providers: Funmi Santos APRN.CNP Treatmet Summary Diagnosis Cancer Type: Adenocarcinoma of the prostate Location: Right base, right lateral base Diagnosis Date (year): August 24, 2016 Histology Subtype: Prostate Cancer Stage:IIB R6pO8D6 Pj Score: (4+3) 7 PSA at Diagnosis: [...] you may be interested in: [email or web address] [email or web address] Internal Control Consultant Telegraph Repeater Installer Art Therapy PSA (Prostate Cancer Support Group) meets the tuesday of every month from 2 PM to 3 PM, at [address] [place] [address] Mariela Jonesy Prepared by: Funmi Santos APRN.MUCK MINER BLASTING Delivered on: August 17, 2017 - This [...]
--- OUTSIDE RECORDS SUMMARY | 2025-01-29 13:08 | XMS_ITS | Patient Health Record ---
Author Organization [facility] [place] Address [address] [place] [address] Care Team Providers Care Fire Supervisor Name Role Phone Alpesh Hampton DO Primary Care Provider Sangita Ho Unavailable [phone] Allergies No Known Allergies Reason For Referral [...] o steoarthritis of the ankle and/or foot (416729704) Primary osteoarthritis, right ankle and foot (M19.071) ActiveconfirmedProblemArthralgia of the ankle and/or foot (682646355)Right ankle pain (M25.571)Activeconfirmed Vital Signs Heart Rate 79 /min 04/05/2024 Tyiyeisjibi40.8 degrees Lhchsiyvpq83/21/2025Respiratory Rate16 /min04/05/2024 Jcigsgnt49 %04/05/20245078Meiodt03 in04/05/20243972Iqurny936 lbs04/05/2024BMI29.86 kg/m2 04/05/2024 Encounters Encounter Location Date Provider Diagnosis [facility] (PODIATRY) [address] [place], [place] [address] [place] [address] 02/28/2024 [place]ita [place] Ingrowing nail L60.0 ; Pain in right toe(s) M79.674 and Primary osteoarthritis, right ankle and foot M19.071 [facility] (PODIATRY) [address] [place] [address] [place] [address] 04/05/2024 Sangita [place] Ingrowing nail L60.0 ; Pain in right toe(s) M79.674 and Pain in left toe(s) M79.675 Assessments Encounter Date Diagnosis (ICD Code) Assessment Notes Treatment Notes Treatment Clinical Notes Section Notes 02/28/2024 Pain in right toe(s) (ICD-10 - M 79.674) 04/05/2024Ingrowing nail (ICD-10 - L60.0)The patient is [...] arise.04/05/2024Pain in right toe(s) (ICD-10 - M79.674) 02/28/2024Ingrowing nail (ICD-10 - L60.0)The patient is a pleasant 83-year-old gentleman who presents for reevaluation of painful ingrown toenails of both great toes. The patient requires slant back trimming every month to avoid developing paronychia.Nails were trimmed and he noted pain relief immediately. The remainder nails were also trimmed as a courtesy.Follow-up in 4 weeks. 02/28/2024Primary osteoarthritis, right ankle and foot (ICD-10 - M19.071)The patient denies right ankle pain at present. He does admit to stiffness. He is not interested incustom bracing, Physical therapy, or surgery at this time. 04/05/2024Pain in left toe(s) (ICD-10 - M79.675) Plan Of Treatment No Information Insurance Providers Payer Name Payer Address Payer Phone Subscriber Number Group Number Insured Name Patient Relationship to Insured Coverage Start Date Coverage End Date MEDIC[place] [address] [place] [address] [id number] Zachery Scanlon - patient is the [id number] 2003 Medications Administered Medication Instructions Date of Administration Dosage Notes Betamethasone Acetate mLBetamethasone Amaayed18 mL Medical (General) History Medical History History ICD Code arthritis right femur fracturehypertensionSurgical History Surgery Date(Month/Year) left JANETT right TKAleft TKATRUS/Bxcolonoscopyright femur pinning
--- OUTSIDE RECORDS SUMMARY | 2025-01-29 13:08 | XMS_ITS | Clinical Summary ---
Author Organization [facility] Address [address] [place] [address] Care Team Providers Care Incubator Operator Name Role Phone Unavailable Primary Care Provider Unavailabl e Social History Tobacco UseTypesPacks/DayYears UsedDateSmoking Tobacco: Never AssessedUT Safety & EnvironmentAnswerDate RecordedFear of Current or Ex-PartnerNot on file 03/31/2023Emotionally AbusedNot on file03/31/2023hysically AbusedNot on file 03/31/2023Sexually AbusedNot on file03/31/2023hysically or Sexually AbusedNot on file03/31/2023Sex and Gender InformationValueDate RecordedSex Assigned at BirthNot on fileLegal TchTirs2608/06/2021 12:33 AM EDTGender IdentityNot on file Sexual OrientationNot on file Last Filed Vital Signs Vital SignReadingTime TakenCommentsBlood Pressure--Pulse--Temperature-- Respiratory Rate--Oxygen Saturation--Inhaled Oxygen Concentration--Qhzgmt75.6 kg (202 lb)08/11/2021 8:32 AM LQTCcwhzy140.7 cm (5' 8 )08/11/2021 8:32 AM EDTBody Mass Index30.71008/11/2021 8:32 AM EDT Plan of Treatment Health MaintenanceDue DateLast DoneCommentsMedicare Annual Wellness (AWV) 1940Depression Avfpcxezt07[birth year]21/1953Adult Uinxojw38/21/1963Pneumococcal Vaccine: 50+ Years (1 of 1 - PCV)1988Zoster Vaccines (1 of 2)1988 Fall Risk Brlvaodtw87/21/2004COVID-19 Vaccine (1 - 2024- season)2024 Influenza Vaccine [...]
--- OUTSIDE RECORDS SUMMARY | 2025-01-29 13:08 | XMS_ITS | Clinical Summary ---
Author Organization [facility] Address [address] [place] [address] Care Team Providers Care Naval Special Warfare Medic Name Role Phone Alpesh Hampton DO Primary Care Provider [phone] Allergies No known active allergies Medications MedicationSigDispense [...] Active Problems ProblemNoted DateDiagnosed DateHistory of prostate konkxf0008/17/2017Prostate qvlwvt8309/29/2016 Social History Tobacco UseTypesPacks/DayYears UsedDateSmoking Tobacco: NeverSmokeless Tobacco: Former Tobacco Cessation:Counseling Given: Not Answered Area Deprivation IndexAnswerDate RecordedNational Score (1-100), lower number is lower pmwm676603/30/2024State Score (1-10), lower number is lower oylx377 Data from: https://www.neighborhoodatlas.medicine.[facility].edu/. Last address used for [address]/30/2024Sex and Gender InformationValueDate RecordedSex Assigned at BirthNot on fileLegal EjzDzmk6709/10/2016 11:38 AM EDT Gender IdentityNot on fileSexual OrientationNot on file Last Filed Vital Signs Vital SignReadingTime TakenCommentsBlood Gxiqiaoa520/8204/03/2024 4:02 PM EDT Lpawc787203/30/2024 2:33 PM TLIRecygpxsucu78.6 ??C (97.8 ??F)03/30/2024 2:33 PM ESTRespiratory Rate--Oxygen Wwwjqsvzih59%03/30/2024 2:33 PM ESTInhaled Oxygen Concentration--Tbwfag68.8 kg (209 lb)08/17/2017 10:25 AM XULGceoxx185.1 cm (5' 7.75 )09/29/2016 12:43 PM EDTBody Mass Index32.01009/29/2016 12:43 PM EDT Plan of Treatment Health MaintenanceDue DateLast DoneCommentsAnxiety Oexspnkqs81/21/1957Depression Dknzbtwse29/21/1957Shingrix Vaccine (1 of 2)1957Medicare Annual Wellness Visit05/09/2003RSV Vaccine (1 - 1-dose 75+ series)2013Covid-19 Vaccine (3 - Pfizer risk series)/, 03/04/2020dvance Directive Asqakyhkkx69/01/2025Influenza Vaccine (#1)/09/2022, 11/25/2021, 10/23/2019, Additional history existsDiabetes Npejznisy74/13/063056/, 01/18/2023, 01/17/2023, Additional history existsDTaP,Tdap,Td Vaccine (3 - Td or Tdap)/11/2022, 1Pneumococcal Vaccine: 50+Completed 10/23/2019, 12/27/2017, 02/07/2015 Insurance Care Teams Team MemberRelationshipSpecialtyStart DateEnd Date Alpesh Hampton DO PCP - GeneralInternal Medicine09/10/16
--- OUTSIDE RECORDS SUMMARY | 2025-01-29 13:08 | XMS_ITS | Clinical Summary ---
Author Organization [facility] Address [address] [place] [address] Care Team Providers Care Regulatory Affairs Coordinator Name Role Phone Unavailable Primary Care Provider Unavailabl e Social History Tobacco UseTypesPacks/DayYears UsedDateSmoking Tobacco: Never AssessedSex and Gender InformationValueDate RecordedSex Assigned at BirthNot on fileLegal Sex Male04/21/2022 7:07 PM EDTGender IdentityNot on fileSexual OrientationNot on file Last Filed Vital Signs Vital SignReadingTime TakenCommentsBlood Hhndetse491/53086 12:00 PM EST Pulse--Temperature--Respiratory Rate--Oxygen Saturation--Inhaled Oxygen Concentration--Rafnln96.5 kg (204 lb)03/19/2022 12:00 PM OULGwjnwe976.4 cm (5' 5.5 )03/19/2022 12:00 PM ESTBody Mass Index33.43003/19/2022 12:00 PM EST Plan of Treatment Not on file
== END 2025-01-29 13:07 | disposition home or self-care (01) ==
LOC: WC 13:06
PROVIDERS: PCP Internal Medicine; Visit Provider Physician Assistant
DX: B35.1 Tinea unguium (principal); L60.0 Ingrowing nail; R26.2 Difficulty in walking, not elsewhere classified; R26.89 Other abnormalities of gait and mobility; L60.8 Other nail disorders; M79.675 Pain in left toe(s); M79.674 Pain in right toe(s)
CPT/HCPCS: 11721